=== PATIENT | male | born 1945 | race Caucasian/White ===

== ENCOUNTER 2023-01-04 00:39 | Emergency (ER) | payer MEDICARE, OTHER, SELFPAY ==
[2023-01-04 00:45] VITALS: BP 150/100; PULSE 82; RESP 16; TEMP 36.5; O2SAT 97; BMI 35.3
--- NOTE | 2023-01-04 01:00 | ED_ITS ---
HPI - General Adult General Chief complaint: Neck Pain/Injury Stated complaint: NECK INJURY Time Seen by Provider: 01/04/23 01:00 Source: patient Mode of arrival: walk-in History of Present Illness HPI narrative: slipped off lawnmower yesterday. Reached up with the right arm while falling off. Afterwards developed right sided neck pain. Did not strike his neck. Took Flexeril that he has at home. Still has pain of his neck with he extends his head back or turns his head to the right. No weakness or numbness of his extremities. Denies other injury Related Data Allergies Allergy/AdvReac Type Severity Reaction Status Date / Time No Known Drug Allergies Allergy Verified 01/04/23 00:53 Review of Systems ROS Status of ROS 10 or more systems reviewed and unremarkable except as noted in history and below [facility] Social History Smoking status: Never smoker Exam Constitutional Vital Signs - 24 hr 01/04/23 00:45 01/04/23 01:36 Temperature 97.7 F Pulse Rate [Monitor] 82 Respiratory Rate 16 Blood Pressure 140/92 H Blood Pressure [Right Arm] 150/100 H Pulse Oximetry 97 Oxygen Delivery Method Room Air Common normals: no apparent distress HENMT Common normals: normocephalic, head/scalp atraumatic and hearing grossly normal bilaterally Neck & C-Spine Other: tenderness right para cervical muscles. limited ROM turning to the right and increased pain with extension of his neck Respiratory Common normals: normal respiratory effort, no retractions, no use of accessory muscles and clear to auscultation bilaterally Cardio Common normals: no JVD, regular rate and regular rhythm GI Common normals: Normal to inspection, nondistended, normoactive bowel sounds present and soft to palpation Extremity Common normals: normal to inspection, full ROM, normal capillary refill and no joint enlargement Neuro Common normals: oriented x3, CN's II-XII intact bilaterally, moves all extremities and no focal motor deficits Psych Appearance: grossly normal Course Vital Signs Vital signs: Vital Signs Temperature 97.7 F 01/04/23 00:45 Pulse Rate 82 01/04/23 00:45 Respiratory Rate 16 01/04/23 00:45 Blood Pressure 150/100 H 01/04/23 00:45 Pulse Oximetry 97 01/04/23 00:45 Oxygen Delivery Method Room Air 01/04/23 00:45 Temperature 97.7 F 01/04/23 00:45 Pulse Rate 82 01/04/23 00:45 Respiratory Rate 16 01/04/23 00:45 Blood Pressure 140/92 H 01/04/23 01:36 Pulse Oximetry 97 01/04/23 00:45 Oxygen Delivery Method Room Air 01/04/23 00:45 Medical Decision Making MDM Narrative Medical decision making narrative: presents after fall and neck injury. Has muscular spasm right neck and limited ROM of his neck. CT-C spine without acute findings. Patient prescribed valium to use for the spasm and is to follow up with his doctor Discharge Plan Discharge Chief Complaint: Neck Pain/Injury Clinical Impression: Strain of neck muscle Instructions: Cervical Strain (ED), Acute Neck Pain (ED) Stand Alone Forms: Portal Instructions Referrals: [facility] [Other] - 1 week Follow Up Appointments: follow up with your family doctor in 2-3 days
--- NOTE | 2023-01-04 01:04 | CT_ITS ---
The [address] [address] Patient Name: INDIO GUEVARA MRN: [id number] date: 1945 Sex: M Assigned Patient Location: ER Current Patient Location: ED.MAIN Accession/Order Number: [id number] Exam Date: 01/04/2023 01:15 Report Date: 01/04/2023 01:47 At the request of: IVY HUSTON Procedure: CT cervical spine wo con EXAM: CT cervical spine wo con HISTORY: Status post fall with neck pain. COMPARISON: None. TECHNIQUE: Unenhanced helical acquisition obtained through the cervical spine with axial, coronal and sagittal MPR reconstructions. FINDINGS: Mild multilevel degenerative disc disease. Moderate to severe multilevel bilateral facet arthropathy most pronounced at C3-C4 and C4-C5. No evidence of fracture or spondylolisthesis. Mild right C3-C4 and mild left C4-C5 foraminal narrowing secondary uncovertebral hypertrophic spurring. IMPRESSION: 1. No evidence of fracture or spondylolisthesis. 2. Mild multilevel degenerative disc disease. Moderate to severe multilevel bilateral facet arthropathy. 3. Mild foraminal stenoses as described above. Electronically authenticated by: RICO BURTON Date: 01/04/2023 01:47
[2023-01-04 01:36] VITALS: BP 140/92
[2023-01-04] MEDS: DIAZEPAM 5 MG TABLET (02:43)
== END 2023-01-04 02:49 | disposition home or self-care (01) ==
PROVIDERS: Emergency Provider Internal Medicine; PCP Internal Medicine
DX: S16.1XXA Strain of muscle, fascia and tendon at neck level, initial encounter (principal); W17.89XA Other fall from one level to another, initial encounter
CPT/HCPCS: 72125; 99284

== ENCOUNTER 2023-04-18 12:24 | Outpatient (OUT) | payer MEDICARE, OTHER, SELFPAY ==
--- NOTE | 2023-04-18 13:03 | CA_ITS ---
Patient: INDIO GUEVARA Exam Date: 04/18/2023 : 1945 Gender:M Ordering : DR CASSANDRA LONG M.D. Admission #: [id number] Family : DR GIAN MARCIAL D.O. Order #: [id number] CLICK HERE TO VIEW EXAM ECHOCARDIOGRAM REPORT PROCEDURE: CA ECHO DOPPLER COMPLETE INDICATIONS: Chronic systolic congestive heart failure, hypertension, AICD COMPARISON: None. DESCRIPTION: COMPLETE ECHOCARDIOGRAM Real-time transthoracic echocardiography with 2D, M-mode, spectral and color flow Doppler performed. QUALITY: Technical quality was good. LEFT VENTRICLE: Mild dilatation. Moderate concentric left ventricular hypertrophy. LV EF: Global left ventricular systolic function is difficult to assess but appears preserved; visually estimated ejection fraction is 50 to 55%. Unable to assess regional wall motion abnormality; consider contrast study for better delineation of endocardial borders. DIASTOLIC: Grade I diastolic dysfunction. ATRIAL SEPTUM: Inadequately seen. LEFT ATRIUM: Normal chamber size. RIGHT ATRIUM: Normal chamber size. RIGHT VENTRICLE: Normal chamber size. Normal systolic function. Pacer wire present. TRICUSPID VALVE: Normal mobility and thickness. No stenosis with mild to moderate regurgitation. No evidence of pulmonary hypertension. RVSP 34 mmHg MITRAL VALVE: Normal mobility and thickness. No evidence of mitral valve stenosis. There is no mitral annular calcification. No mitral regurgitation. AORTIC VALVE: Normal trileaflet appearance. Thickened aortic valve. Normal leaflet mobility. No evidence of aortic valve stenosis. No aortic regurgitation. AORTIC ROOT: Normal diameter and appearance. PULMONIC VALVE: Not well visualized. No stenosis. No regurgitation. PERICARDIUM: Trivial pericardial effusion. IVC: Not well visualized. CONCLUSION: 1. Global left ventricular systolic function is difficult to assess but appears preserved; visually estimated ejection fraction is 50 to 55% 2. Moderate left ventricular hypertrophy 3. Grade 1, mild diastolic dysfunction 4. The right ventricle is normal in size and systolic function 5. Mild to moderate tricuspid regurgitation 6. Trivial pericardial effusion Adult Echocardiography Procedure Report Left Ventricle LVEDD (3.7 - 5.6 cm): 5.96 cm LVESD (2.2 - 4.0 cm): 4.19 cm LVIVS thickness (0.6 - 1.2 cm): 1.44 cm LVPW thickness (0.5 - 1.0 cm): 1.42 cm e': 0.06 m/s E - e': 8.10 LVOT Max Gradient: 1.98 mm[Hg] LVOT Area (cm2): 0.70 m/s Peak Velocity (LVOT): 0.70 m/s LVOT Diameter 2.59 cm Left Atrium LA Volume Index (2D A2C): 21.81 ml/m2 Left Atrium Systolic Dimension: 4.31 cm Mitral Valve MV E to A Ratio: 0.76 Mitral Valve A-Wave Peak Velocity: 0.60 m/s Mitral Valve E-Wave Peak Velocity: 0.46 m/s Right Ventricle Aorta AO Root Diam: 4.11 cm Ascending Ao Diam: 3.61 cm Aortic Valve AoV Area (Peak Tim): 3.84 cm2, 3.84 cm2 Peak Velocity(Antegrade Flow): 0.97 m/s Peak Gradient(Antegrade Flow): 3.76 mm[Hg] Tricuspid Valve Peak Velocity (Regurgitant Flow): 2.77 m/s, 2.69 m/s Pulmonic Valve Peak Velocity: 0.93 m/s Peak Gradient: 4.11 mm[Hg], 2.85 mm[Hg] Right Atrium Dictated by: Daria Jose M.D. on 04/20/2023 at 15:05 Approved by: Daria Jose M.D. on 04/20/2023 at 15:12
== END 2023-04-18 12:25 | disposition home or self-care (01) ==
LOC: CARD 12:24
PROVIDERS: Visit Provider Internal Medicine Interventional Cardiology
DX: I50.22 Chronic systolic (congestive) heart failure (principal); I07.1 Rheumatic tricuspid insufficiency
CPT/HCPCS: 93306

== ENCOUNTER 2024-08-28 10:07 | Outpatient (OUT) | payer MEDICARE, OTHER, SELFPAY ==
[2024-08-28 12:33] LABS: Anion Gap 9.4; Carbon Dioxide 30.4 mmol/L (21.0-32.0); Chloride 108 mmol/L (98-107); Potassium 4.8 mmol/L (3.5-5.1); Sodium 143 mmol/L (136-145)
== END 2024-08-28 10:08 | disposition home or self-care (01) ==
LOC: LAB 10:10
PROVIDERS: PCP Internal Medicine; Visit Provider Internal Medicine
DX: E87.5 Hyperkalemia (principal)
CPT/HCPCS: 36415; 80051

== ENCOUNTER 2024-11-06 12:11 | Outpatient (OUT) | payer MEDICARE, OTHER, SELFPAY ==
--- OUTSIDE RECORDS SUMMARY | 2024-11-06 12:22 | XMS_ITS | CCD ---
Author Organization [facility] Care Team Providers Care Scrum Master Name Role Phone PHYSICIAN, DEFAULT Unavailable Unavailable PHYSICIAN, DEFAULT Unavailable Unavailable REN MARCIAL Unavailable Unavailable UNKNOWN, PROVIDER Unavailable Unavailable UNKNOWN, PROVIDER Unavailable Unavailable REN MARCIAL Unavailable Unavailable VALONE, REN Unavailable Unavailable SAM GREER Unavailable Unavailable SAM GREER Unavailable Unavailable REN MARCIAL Unavailable Unavailable VALONERNE Unavailable Unavailable YANCY, ENRIQUE H. Admitting Unavailable YANCY, ENRIQUE H. Attending Unavailable REN MARCIAL Primary Care Unavailable YANCY, ENRIQUE H. Attending Unavailable YANCY, ENRIQUE H. Referring Unavailable REN MARCIAL Primary Care Unavailable YANCY, ENRIQUE H. Admitting Unavailable YANCY, ENRIQUE H. Attending Unavailable REN MARCIAL Primary Care Unavailable YANCY, ENRIQUE H. Attending Unavailable YANCY, ENRIQUE H. Referring Unavailable REN MARCIAL Primary Care Unavailable Valone Ren DE LA GARZA Primary Care Provider ETHAN, DR TRUJILLO Admitting Unavailable MOUKAGUERA, DR TRJUILLO Attending Unavailable VALYOON, DR SPRINGER Primary Care Unavailable CHRISTALUKAGUERA, DR TRUJILLO Consulting Unavailable MOUKAGUERA, DR TRUJILLO Admitting Unavailable MOUKARBEL, DR TRUJILLO Attending Unavailable VALONE, DR SPRINGER Primary Care Unavailable CHRISTALUKAGUERA, DR TRUJILLO Consulting Unavailable CRISSY KINGSLEY Admitting Unavailable CRISSY KINGSLEY Attending Unavailable ANIKET, DR SPRINGER Primary Care Unavailable CRISSY KINGSLEY Consulting Unavailable ETHAN, DR TRUJILLO Admitting Unavailable MOUKARBEL, DR TRUJILLO Attending Unavailable VALYOON, DR SPRINGER Primary Care Unavailable FÉLIX LOPEZ, DR RANDALL Espino Admitting Unavailkelly HEARD JR, DR RANDALL Espino Attending Unavailkelly e ANIKET, DR SPRINGER Primary Care Unavailable FÉLIX LOPEZ, DR RANDALL Espino Consulting Unavailkelly e MOUKAGUERA, DR TRUJILLO Admitting Unavailable MOUKARBEL, DR TRUJILLO Attending Unavailable VALONE, DR SPRINGER Primary Care Unavailable MOUKARBEL, DR TRUJILLO Consulting Unavailable KATHIA, Nino Garcia Attending Unavailable BAE, Nino Garcia Attending Unavailable SAVITA, KASH Referring Unavailable ELVIS, EDUARD Referring Unavailable SAVITA, KASH Referring Unavailable SAVITA, KASH Referring Unavailable SAVITA, KASH Referring Unavailable SAVITA, KASH Referring Unavailable SAVITA, KASH Referring Unavailable SAVITA, KASH Referring Unavailable SAVITA, KASH Referring Unavailable MOUKARBEL, CASSANDRA Attending Unavailable SAVITA, KASH Referring Unavailable SAVITA, KASH Referring Unavailable SAVITA, KASH Referring Unavailable ELVIS, EDUARD Referring Unavailable SAVITA, KASH Referring Unavailable ELVIS, EDUARD Referring Unavailable ELVIS, EDUARD Referring Unavailable ELVIS, EDUARD Referring Unavailable ELVIS, EDUARD Referring Unavailable SAVITA, KASH Referring Unavailable ELVIS, EDUARD Referring Unavailable ELVIS, EDUARD Referring Unavailable Allergies Allergy Classification Reported Allergen(s) Allergy Type Date of Onset Reaction(s) Facility (3 sources) tamsulosin Drug Allergy 06-30-2016 [facility] Repository (1 source) NO KNOWN DRUG ALLERGIES Drug allergy (disorder) 06-09-2009 [facility] Repository (3 sources) tamsulosin Drug Allergy 07-07-2019 [facility] (2 sources) tamsulosin; Translations: [tamsulosin] Drug Allergy 02-03-2015 [facility] Repository Medications Current Medications Medication Drug Class(es) Dates Sig (Normalized) Sig (Original) Acetaminophen / HYDROcodone (2 sources) Opioid Agonist Start: 08-07-2019 End: 08-07-2019 HYDROcodone-acetam inophen (NORCO) 5-325 MG per tablet 1 tablet Start: 07-08-2019 End: 07-08-2019 HYDROcodone-acetaminophen (N ORCO) 5-325 MG per tablet 1 tablet acetaminophen 325 mg / oxyCODONE hydrochloride 5 mg oral tablet (2 sources) Opioid Agonist Start: 08-07-2019 End: 08-14-2019 oxyCODONE-acetaminophen (PERCOCET) 5-325 MG per tablet Indications: Post-op pain Take 1 tablet by mouth every 6 hours as needed for Pain for up to 7 days. Intended supply: 7 days. Take lowest dose possible to manage pain 28 tablet 0 08/07/2019 08/14/2019 Active allopurinol 300 mg oral tablet (3 sources) Xanthine Oxidase Inhibitor Start: 08-28-2017 take 1 tablet by mouth once daily allopurinol (ZYLOPRIM) 300 MG tablet TAKE 1 TABLET BY MOUTH EVERY DAY 3 08/28/2017 Active calcium chloride 0.0014 meq/ml / potassium chloride 0.004 meq/ml / sodium chloride 0.103 meq/ml / sodium lactate 0.028 meq/ml injectable solution (4 sources) Start: 08-07-2019 lactated ringers infusion Start: 07-08-2019 lactated ringe rs infusion carvedilol 25 mg oral tablet (3 sources) alpha-Adrenergic Vidhi, beta-Adrenergic Vidhi Start: 09-05-2017 carvedilol (COREG) 25 MG tablet Takes 1/4 tab at HS 3 09/05/2017 Active cephalexin 500 mg oral capsule (2 sources) Cephalosporin Antibacterial Start: 08-07-2019 End: 08-14-2019 take 1 capsule by mouth three times daily cephALEXin (KEFLEX) 500 MG capsule Take 1 capsule by mouth 3 times daily for 7 days 21 capsule 0 08/07/2019 08/14/2019 Active 1 ml diphenhydrAMINE hydrochloride 50 mg/ml cartridge (2 sources) Histamine-1 Receptor Antagonist Start: 08-07-2019 End: 08-07-2019 diphenhydrAMINE (BENADRYL) injection 12.5 mg Start: 07-08-2019 End: 07-08-2019 diphenhydrAMINE (BENADRYL) i njection 12.5 mg DULoxetine 60 mg delayed release oral capsule (3 sources) Serotonin and Norepinephrine Reuptake Inhibitor Start: 07-09-2017 take 1 capsule by mouth at bedtime DULoxetine (CYMBALTA) 60 MG extended release capsule TAKE ONE CAPSULE BY MOUTH AT BEDTIME 3 07/09/2017 Active ezetimibe 10 mg oral tablet (3 sources) Dietary Cholesterol Absorption Inhibitor Start: 08-11-2017 ezetimibe (ZETIA) 10 MG tablet TAKE 1 TABLET AT BEDTIME 1 08/11/2017 Active famotidine 40 mg oral tablet (3 sources) Histamine-2 Receptor Antagonist take 1 tablet by mouth once daily famotidine (PEPCID) 40 MG tablet Take 40 mg by mouth Daily 0 Active 2 ml fentaNYL 0.05 mg/ml injection (2 sources) Opioid Agonist Start: 08-07-2019 fentaNYL (SUBLIMAZE) injection 50 mcg Start: 07-08-2019 fentaNYL (SUBL IMAZE) injection 50 mcg 1 ml HYDROmorphone hydrochloride 1 mg/ml cartridge (2 sources) Opioid Agonist Start: 08-07-2019 HYDROmorphone (DILAUDID) injection 0.5 mg Start: 07-08-2019 HYDROmorphone (DILAUDID) injection 0.5 mg hydroxychloroquine sulfate 200 mg oral tablet (3 sources) Antimalarial, Antirheumatic Agent take 1 tablet by mouth twice daily hydroxychloroquine (PLAQUENIL) 200 MG tablet Take 200 mg by mouth 2 times daily 0 Active 10 ml lidocaine hydrochloride 10 mg/ml injection (3 sources) Antiarrhythmic, Amide Local Anesthetic Start: 2019 End: 2019 lidocaine PF 1 % injection 1 mL Start: 07-08-2019 End: 07-08-2019 lidocaine PF 1 % injection 1 mL 1 ml meperidine hydrochloride 25 mg/ml cartridge (2 sources) Opioid Agonist Start: 08-07-2019 meperidine (DE MEROL) injection 12.5 mg Start: 07-08-2019 meperidine (DE MEROL) injection 12.5 mg 2 ml metoclopramide 5 mg/ml prefilled syringe (2 sources) Dopamine-2 Receptor Antagonist Start: 08-07-2019 End: 08-07-2019 metoclopramide (REGLAN) injection 10 mg Start: 07-08-2019 End: 07-08-2019 metoclopramide (REGLAN) inje ction 10 mg montelukast 10 mg oral tablet (3 sources) Leukotriene Receptor Antagonist take 1 tablet by mouth once daily montelukast (SINGULAIR) 10 MG tablet Take 10 mg by mouth daily 0 Active 2 ml ondansetron 2 mg/ml injection (2 sources) Serotonin-3 Receptor Antagonist Start: 0 End: 0 ondansetron (ZOFRAN) injection 4 mg Start: 07-08-2019 End: 07-08-2019 ondansetron (ZOFRAN) injecti on 4 mg pregabalin 200 mg oral capsule (3 sources) take 1 capsule by mouth twice daily pregabalin (LYRICA) 200 MG capsule Take 200 mg by mouth 2 times daily. 0 Active sacubitril 97 mg / valsartan 103 mg oral tablet (3 sources) Angiotensin 2 Receptor Vidhi sacubitril-valsarta n (ENTRESTO) 97-103 MG per tablet Entresto 97 mg-103 mg tablet 0 Active 3 ml sodium chloride 9 mg/ml injection (6 sources) Start: 0 sodium chloride flush 0.9 % injection 10 mL Start: 07-08-2019 sodium chlorid e flush 0.9 % injection 10 mL traMADol hydrochloride 50 mg oral tablet (1 source) Opioid Agonist Start: 06-20-2019 End: 07-20-2019 take 1 tablet by mouth once daily traMADol (ULTRAM) 50 MG tablet Indications: Spinal stenosis, lumbar region with neurogenic claudication , Lumbar radiculopathy , Lumbar spondylosis Take 1 tablet by mouth daily for 30 days. 30 tablet 0 06/20/2019 07/20/2019 Active Completed/Discontinued Medications Medication Drug Class(es) Dates Sig (Normalized) Sig (Original) diclofenac sodium 50 mg delayed release oral tablet (1 source) Nonsteroidal Anti-inflammatory Drug Start: 07-09-2018 End: 07-07-2019 take 1 tablet by mouth three times daily at mealtime diclofenac (VOLTAREN) 50 MG EC tablet Indications: Lumbar radiculopathy , Lumbar spondylosis TAKE 1 TABLET BY MOUTH 3 TIMES A DAY WITH MEALS 60 tablet 3 07/09/2018 07/07/2019 Discontinued (LIST CLEANUP) OXcarbazepine 150 mg oral tablet (1 source) Anti-epileptic Agent End: 07-07-2019 take 1 tablet by mouth twice daily OXcarbazepine (TRILEPTAL) 150 MG tablet Take 150 mg by mouth 2 times daily 0 07/07/2019 Discontinued (LIST CLEANUP) Problems Active Problems Problem Classification Problem Date Documented Da te Episodic/Chronic Conduction disorders (7 sources) Left bundle-branch block, unspecified; Translations: [Encounter for adjustment and management of automatic implantable cardiac defibrillator] Onset: 02-05-2018 Chronic Congestive heart failure; nonhypertensive (15 sources) Left ventricular failure, unspecified; Translations: [Unspecified systolic (congestive) heart failure] Onset: 01-11-2018 Chronic Hyperplasia of prostate (4 sources) Benign prostatic hyperplasia with lower urinary tract symptoms; Translations: [BENIGN PROSTATIC HYPERPLASIA W/LUTS] Onset: 09-30-2021 Chronic Osteoarthritis (1 source) Unspecified osteoarthritis, unspecified site; Translations: [UNSPECIFIED OSTEOARTHRITIS, UNSPECIFIED SITE] Onset: 02-05-2018 Chronic Other aftercare (1 source) retirement (current) use of aspirin; Translations: [MANUSCRIPT READER (CURRENT) USE OF ASPIRIN] Onset: 02-05-2018 Episodic Micheline-; endo-; and myocarditis; cardiomyopathy (6 sources) Cardiomyopathy, unspecified; Translations: [Dilated cardiomyopathy] Onset: 02-05-2018 Chronic Spondylosis; intervertebral disc disorders; other back problems (1 source) Dorsalgia, unspecified; Translations: [DORSALGIA, UNSPECIFIED] Onset: 02-05-2018 Episodic Unclassified (2 sources) Unknown / UNK(Unknown) Onset: 01-11-2018 Past or Other Problems Problem Classification Problem Date Documented Da te Episodic/Chronic Other nervous system disorders (1 source) Postoperative pain Episodic Residual codes; unclassified (1 source) Pain Episodic Results Test Name Value Interpretation Reference Range Facility Office Visiton 12-26-2023 Follow-up visit [id number] Jose Guevara 1945 M Date Provider Department Center 12/26/2023 CASSANDRA AGUERO [facility] Family History Problem Relation Age of Onset Stroke Father Family Status - Relation Status Age at Father Level of Service:97739 [place] OFFICE/OUTPATIENT ESTABLISHED LOW MDM 20 MIN Normal [facility] PROF CHEM 8 (BAS METB)on Anion gap [Moles/Vol] 9.4 mmol/L Normal [facility] Comment on above: Performed By: #### B MP #### [facility] [address] [place] [address] Dr. Javy Brian Calcium [Mass/Vol] 9.7 mg/dL Normal 8.5-10.1 [facility] Comment on above: Performed By: #### B MP #### [facility] [address] [address] [address] Javy Brian Chloride [Moles/Vol] 106 mmol/L Normal 98-107 [facility] Comment on above: Performed By: #### B MP #### [facility] [address] [place] [address] Dr. Javy Brian CO2 [Moles/Vol] 30.4 mmol/L Normal 21.0-32.0 [facility] Comment on above: Performed By: #### B MP #### [facility] [address] [address] [address] Javy Brian Creatinine [Mass/Vol] 1.46 mg/dL Critically high 0.70-1.30 [facility] Comment on above: Performed By: #### B MP #### [facility] [address] [address] [address] Javy Brian EGFR-AF VENEZUELAN 57 mL/min/1.73m2 Critically low >=60 [facility] Comment on above: Performed By: #### B MP #### [facility] [address] [address] [address] Javy Brian EGFR-NON AF VENEZUELAN 47 mL/min/1.73m2 Critically low >=60 [facility] Comment on above: Performed By: #### B MP #### [facility] [address] [address] [address] Javy Brian Glucose [Mass/Vol] 99 mg/dL Normal 74-106 [facility] Comment on above: Performed By: #### B MP #### [facility] [address] [address] [address] Javy Brian Potassium [Moles/Vol] 4.8 mmol/L Normal 3.5-5.1 [facility] Comment on above: Performed By: #### B MP #### [facility] [address] [address] [address] Javy Brian Sodium [Moles/Vol] 141 mmol/L Normal 136-145 [facility] Comment on above: Performed By: #### B MP #### [facility] [address] [address] [address] Javy Brian Urea nitrogen [Mass/Vol] 23.0 mg/dL Critically high 7.0-18.0 [facility] Comment on above: Performed By: #### B MP #### [facility] [address] [address] [address] Javy Brian Urea nitrogen/Creatinin e [Mass ratio] 15.8 mg/mg Normal [facility] Comment on above: Performed By: #### B MP #### [facility] [address] [place] [address] Dr. Javy Brian PROF CHEM 8 (BAS METB)on Anion gap [Moles/Vol] 10.7 mmol/L Normal [facility] Comment on above: Performed By: #### B MP #### [facility] [address] [place] [address] Dr. Javy Brian Calcium [Mass/Vol] 9.7 mg/dL Normal 8.5-10.1 [facility] Comment on above: Performed By: #### B MP #### [facility] [address] [place] [address] Dr. Javy Brian Chloride [Moles/Vol] 106 mmol/L Normal 98-107 [facility] Comment on above: Performed By: #### B MP #### [facility] [address] [place] [address] Dr. Javy Brian CO2 [Moles/Vol] 29.5 mmol/L Normal 21.0-32.0 [facility] Comment on above: Performed By: #### B MP #### [facility] [address] [place] [address] Dr. Javy Brian Creatinine [Mass/Vol] 1.79 mg/dL Critically high 0.70-1.30 [facility] Comment on above: Performed By: #### B MP #### [facility] [address] [place] [address] Dr. Javy Brian EGFR-AF VENEZUELAN 45 mL/min/1.73m2 Critically low >=60 [facility] Comment on above: Performed By: #### B MP #### [facility] [address] [place] [address] Dr. Javy Brian EGFR-NON AF VENEZUELAN 37 mL/min/1.73m2 Critically low >=60 [facility] Comment on above: Performed By: #### B MP #### [facility] [address] [place] [address] Dr. Javy Brian Glucose [Mass/Vol] 94 mg/dL Normal 74-106 [facility] Comment on above: Performed By: #### B MP #### [facility] [address] [address] [address] Javy Brian Potassium [Moles/Vol] 5.2 mmol/L Critically high 3.5-5.1 [facility] Comment on above: Performed By: #### B MP #### [facility] [address] [address] [address] Javy Brian Sodium [Moles/Vol] 141 mmol/L Normal 136-145 [facility] Comment on above: Performed By: #### B MP #### [facility] [address] [place] [address] Dr. Javy Brian Urea nitrogen [Mass/Vol] 34.0 mg/dL Critically high 7.0-18.0 [facility] Comment on above: Performed By: #### B MP #### [facility] [address] [place] [address] Dr. Javy Brian Urea nitrogen/Creatinin e [Mass ratio] 19.0 mg/mg Normal [facility] Comment on above: Performed By: #### B MP #### [facility] [address] [place] [address] Dr. Javy Brian PROF CHEM 8 (BAS METB)on Anion gap [Moles/Vol] 12.0 mmol/L Normal [facility] Comment on above: Performed By: #### B MP #### [facility] [address] [place] [address] Dr. Javy Brian Calcium [Mass/Vol] 8.9 mg/dL Normal 8.5-10.1 [facility] Comment on above: Performed By: #### B MP #### [facility] [address] [place] [address] Dr. Javy Brian Chloride [Moles/Vol] 109 mmol/L Critically high 98-107 [facility] Comment on above: Performed By: #### B MP #### [facility] [address] [place] [address] Dr. Javy Brian CO2 [Moles/Vol] 29.0 mmol/L Normal 22.0-30.0 [facility] Comment on above: Performed By: #### B MP #### [facility] [address] [address] [address] Javy Brian Creatinine [Mass/Vol] 1.79 mg/dL Critically high 0.66-1.25 [facility] Comment on above: Performed By: #### B MP #### [facility] [address] [address] [address] Javy Brian EGFR-AF VENEZUELAN 45 mL/min/1.73m2 Critically low >=60 [facility] Comment on above: Performed By: #### B MP #### [facility] [address] [address] [address] Javy Brian EGFR-NON AF VENEZUELAN 37 mL/min/1.73m2 Critically low >=60 [facility] Comment on above: Performed By: #### B MP #### [facility] [address] [address] [address] Javy Brian Glucose [Mass/Vol] 92 mg/dL Normal 74-106 [facility] Comment on above: Performed By: #### B MP #### [facility] [address] [address] [address] Javy Brian Potassium [Moles/Vol] 5.0 mmol/L Normal 3.4-5.0 [facility] Comment on above: Performed By: #### B MP #### [facility] [address] [address] [address] Javy Brian Sodium [Moles/Vol] 145 mmol/L Normal 137-145 [facility] Comment on above: Performed By: #### B MP #### [facility] [address] [address] [address] Javy Brian Urea nitrogen [Mass/Vol] 35.0 mg/dL Critically high 7.0-18.0 [facility] Comment on above: Performed By: #### B MP #### [facility] [address] [address] [address] Javy Brian Urea nitrogen/Creatinin e [Mass ratio] 19.6 mg/mg Normal [facility] Comment on above: Performed By: #### B MP #### [facility] [address] [place] [address] Dr. Javy Brian CBC AUTO DIFFon 11-04-2021 BASO # 0.0 103/ul Normal 0.0-0.1 [facility] Comment on above: Performed By: #### C BC #### [facility] [address] [place] [address] Dr. Javy Brian Basophils/100 WBC (Bld) 0.7 % Normal 0.2-2.0 [facility] Comment on above: Performed By: #### C BC #### [facility] [address] [place] [address] Dr. Javy Brian EO # 0.2 103/ul Normal 0.0-0.7 [facility] Comment on above: Performed By: #### C BC #### [facility] [address] [place] [address] Dr. Javy Brian Eosinophils/100 WBC (Bld) 3.1 % Normal 0.9-7.0 [facility] Comment on above: Performed By: #### C BC #### [facility] [address] [place] [address] Dr. Javy Brian Erythrocyte distribution width (RBC) [Ratio] 14.3 % Normal 11.0-15.0 [facility] Comment on above: Performed By: #### C BC #### [facility] [address] [place] [address] Dr. Javy Brian Hematocrit (Bld) [Volume fraction] 43.5 % Normal 42.0-54.0 [facility] Comment on above: Performed By: #### C BC #### [facility] [address] [place] [address] Dr. Javy Brian Hemoglobin (Bld) [Mass/Vol] 13.7 g/dL Critically low 14.0-18.0 [facility] Comment on above: Performed By: #### C BC #### [facility] [address] [place] [address] Dr. Javy Brian IG # 0.01 10e3/ul Normal 0.00-0.03 [facility] Comment on above: Performed By: #### C BC #### [facility] [address] [place] [address] Dr. Javy Brian IG % 0.2 % Normal 0.0-0.5 [facility] Comment on above: Performed By: #### C BC #### [facility] [address] [place] [address] Dr. Javy Brian LYMPH # 1.4 103/ul Normal 1.2-3.8 [facility] Comment on above: Performed By: #### C BC #### [facility] [address] [place] [address] Dr. Javy Brian Lymphocytes/100 WBC (Bld) 23.6 % Normal 20.5-60.0 [facility] Comment on above: Performed By: #### C BC #### [facility] [address] [place] [address] Dr. Javy Brian MANUAL DIFF REQ NO Normal [facility] Comment on above: Performed By: #### C BC #### [facility] [address] [place] [address] Dr. Javy Brian MCH (RBC) [Entitic mass] 29.0 pg Normal 25.9-34.0 [facility] Comment on above: Performed By: #### C BC #### [facility] [address] [place] [address] Dr. Javy Brian MCHC (RBC) [Mass/Vol] 31.5 g/dL Normal 29.9-35.2 [facility] Comment on above: Performed By: #### C BC #### [facility] [address] [place] [address] Dr. Javy Brian MCV (RBC) [Entitic vol] 92.0 fL Normal 80.0-94.0 [facility] Comment on above: Performed By: #### C BC #### [facility] [address] [place] [address] Dr. Javy Brian MONO # 0.8 103/ul Normal 0.3-0.8 [facility] Comment on above: Performed By: #### C BC #### [facility] [address] [place] [address] Dr. Javy Brian Monocytes/100 WBC (Bld) 14.1 % Critically high 1.7-12.0 [facility] Comment on above: Performed By: #### C BC #### [facility] [address] [place] [address] Dr. Javy Brian NEUT # 3.4 103/ul Normal 1.4-6.5 [facility] Comment on above: Performed By: #### C BC #### [facility] [address] [place] [address] Dr. Javy Brian Neutrophils/100 WBC (Bld) 58.3 % Normal 43.0-75.0 [facility] Comment on above: Performed By: #### C BC #### [facility] [address] [place] [address] Dr. Javy Brian Platelet mean volume (Bld) [Entitic vol] 9.7 fL Normal 9.5-13.5 [facility] Comment on above: Performed By: #### C BC #### [facility] [address] [place] [address] Dr. Javy Brian PLT 113 103/ul Critically low 150-450 [facility] Comment on above: Performed By: #### C BC #### [facility] [address] [place] [address] Dr. Javy Brian RBC 4.73 106/ul Normal 4.70-6.10 [facility] Comment on above: Performed By: #### C BC #### [facility] [address] [place] [address] Dr. Javy Brian WBC 5.8 103/ul Normal 4.0-11.0 [facility] Comment on above: Performed By: #### C BC #### [facility] [address] [place] [address] Dr. Javy Brian PROF CHEM 8 (BAS METB)on Anion gap [Moles/Vol] 13.2 mmol/L Normal [facility] Comment on above: Performed By: #### B MP #### [facility] [address] [address] [address] Javy Brian Calcium [Mass/Vol] 9.1 mg/dL Normal 8.5-10.1 [facility] Comment on above: Performed By: #### B MP #### [facility] [facility] [address] [address] [address] Javy Brian Chloride [Moles/Vol] 110 mmol/L Critically high 98-107 [facility] Comment on above: Performed By: #### B MP #### [facility] [address] [address] [address] Javy Brian CO2 [Moles/Vol] 27.6 mmol/L Normal 22.0-30.0 [facility] Comment on above: Performed By: #### B MP #### [facility] [address] [address] [address] Javy Brian Creatinine [Mass/Vol] 1.61 mg/dL Critically high 0.66-1.25 [facility] Comment on above: Performed By: #### B MP #### [facility] [address] [address] [address] Javy Brian EGFR-AF VENEZUELAN 51 mL/min/1.73m2 Critically low >=60 [facility] Comment on above: Performed By: #### B MP #### [facility] [address] [address] [address] Javy Brian EGFR-NON AF VENEZUELAN 42 mL/min/1.73m2 Critically low >=60 [facility] Comment on above: Performed By: #### B MP #### [facility] [address] [address] [address] Javy Brian Glucose [Mass/Vol] 94 mg/dL Normal 74-106 [facility] Comment on above: Performed By: #### B MP #### [facility] [address] [address] [address] Javy Brian Potassium [Moles/Vol] 5.8 mmol/L Critically high 3.4-5.0 [facility] Comment on above: Performed By: #### B MP #### [facility] [address] [address] [address] Javy Brian Sodium [Moles/Vol] 145 mmol/L Normal 137-145 [facility] Comment on above: Performed By: #### B MP #### [facility] [address] [address] [address] Javy Brian Urea nitrogen [Mass/Vol] 27.0 mg/dL Critically high 7.0-18.0 [facility] Comment on above: Performed By: #### B MP #### [facility] [address] [address] [address] Javy Brian Urea nitrogen/Creatinin e [Mass ratio] 16.8 mg/mg Normal [facility] Comment on above: Performed By: #### B MP #### [facility] [address] [address] [address] Javy Brian Ambulatory Visit Summaryon 0 10-04-2021 Ambulatory Visit Summary INDIO GUEVARA :1945 Visit Date:10/04/2021 Ambulatory Visit Instructions Your Diagnosis BPH with urinary obstruction Personal history of kidney stones Tests Performed Urnls Dip Stick Auto w/o Microscopy POC 07199 Your Care Team Attending Physician - Randall Heard Jr., MD Primary Care Physician - REN MARCIAL JR, DO This Is Your Medications List Contact prescribing physician if questions or concerns acetaminophen-hydrocodone ([place] 325 mg-5 mg oral tablet) allopurinol (allopurinol 300 mg Tab) carvedilol (carvedilol 25 mg Tab) duloxetine (Cymbalta) empagliflozin (Jardiance 10 mg oral tablet) ezetimibe (Zetia 10 mg Tab) hydroxychloroquine (hydroxychloroquine 200 mg Tab) montelukast (montelukast 10 mg Tab) pravastatin (pravastatin 40 mg Tab) pregabalin (Lyrica 200 mg Cap) rosuvastatin (rosuvastatin 5 mg Tab) sacubitril-valsartan (Entresto 97 mg-103 mg oral tablet) tramadol Procedures Performed Scrotal exploration (01/09/2018), Cystoscopic removal of ureteric stent (05/24/2017), Cystoscopy (04/04/2017), ESWL of kidney (03/12/2017), ESWL of kidney (01/08/2017), Left Thumb cyst excision (12/30/2015), Cystoscopy (04/29/2015), ESWL of kidney (04/12/2015), ESWL of kidney (03/08/2015), ESWL of kidney (02/08/2015), Hernia, History of back surgery....... Discharge Vitals Heart Rate (Peripheral) 67 Respiratory Rate 16 Blood Pressure 145/85 Height 182 cm Height 182.0 cm Weight 121 kg Weight 121.0 kg BMI 36.53 What to do next Scheduled Follow-Up Appointments Sunday 10:30 AM EDT With: Félix Carter MD, Randall Espino Where: [facility] Patient Educationon 10-05-19 Patient Education Urology Benign Prostatic Hyperplasia Benign prostatic hyperplasia (BPH) is an enlarged prostate gland that is caused by the normal aging process and not by cancer. The prostate is a walnut-sized gland that is involved in the production of semen. It is located in front of the rectum and below the bladder. The bladder stores urine and the urethra is the tube that carries the urine out of the body. The prostate may get bigger as a man gets older. An enlarged prostate can press on the urethra. This can make it harder to pass urine. The build-up of urine in the bladder can cause infection. Back pressure and infection may progress to bladder damage and kidney (renal) failure. What are the causes? This condition is part of a normal aging process. However, not all men develop problems from this condition. If the prostate enlarges away from the urethra, urine flow will not be blocked. If it enlarges toward the urethra and compresses it, there will be problems passing urine. What increases the risk? This condition is more likely to develop in men over the age of 50 years. What are the signs or symptoms? Symptoms of this condition include: ? Getting up often during the night to urinate. ? Needing to urinate frequently during the day. ? Difficulty starting urine flow. ? Decrease in size and strength of your urine stream. ? Leaking (dribbling) after urinating. ? Inability to pass urine. This needs immediate treatment. ? Inability to completely empty your bladder. ? Pain when you pass urine. This is more common if there is also an infection. ? Urinary tract infection (UTI). How is this diagnosed? This condition is diagnosed based on your medical history, a physical exam, and your symptoms. Tests will also be done, such as: ? A post-void bladder scan. This measures any amount of urine that may remain in your bladder after you finish urinating. ? A digital rectal exam. In a rectal exam, your health care provider checks your prostate by putting a lubricated, gloved finger into your rectum to feel the back of your prostate gland. This exam detects the size of your gland and any abnormal lumps or growths. ? An exam of your urine (urinalysis). ? A prostate specific antigen (PSA) screening. This is a blood test used to screen for prostate cancer. ? An ultrasound. This test uses sound waves to electronically produce a picture of your prostate gland. Your health care provider may refer you to a specialist in kidney and prostate diseases (urologist). How is this treated? Once symptoms begin, your health care provider will monitor your condition (active surveillance or watchful waiting). Treatment for this condition will depend on the severity of your condition. Treatment may include: ? Observation and yearly exams. This may be the only treatment needed if your condition and symptoms are mild. ? Medicines to relieve your symptoms, including: ? Medicines to shrink the prostate. ? Medicines to relax the muscle of the prostate. ? Surgery in severe cases. Surgery may include: ? Prostatectomy. In this procedure, the prostate tissue is removed completely through an open incision or with a laparoscope or robotics. ? Transurethral resection of the prostate (TURP). In this procedure, a tool is inserted through the opening at the tip of the penis (urethra). It is used to cut away tissue of the inner core of the prostate. The pieces are removed through the same opening of the penis. This removes the blockage. ? Transurethral incision (TUIP). In this procedure, small cuts are made in the prostate. This lessens the prostate's pressure on the urethra. ? Transurethral microwave thermotherapy (TUMT). This procedure uses microwaves to create heat. The heat destroys and removes a small amount of prostate tissue. ? Transurethral needle ablation (TUNA). This procedure uses radio frequencies to destroy and remove a small amount of prostate tissue. ? Interstitial laser coagulation (ILC). This procedure uses a laser to destroy and remove a small amount of prostate tissue. ? Transurethral electrovaporization (TUVP). This procedure uses electrodes to destroy and remove a small amount of prostate tissue. ? Prostatic urethral lift. This procedure inserts an implant to push the lobes of the prostate away from the urethra. Follow these instructions at home: ? Take tzma-gup-qletmmt and prescription medicines only as told by your health care provider. ? Monitor your symptoms for any changes. Contact your health care provider with any changes. ? Avoid drinking large amounts of liquid before going to bed or out in public. ? Avoid or reduce how much caffeine or alcohol you drink. ? Give yourself time when you urinate. ? Keep all follow-up visits as told by your health care provider. This is important. Contact a health care provider if: ? You have unexplained back pain. ? Your symptoms do not get better with treatment. ? You d (more content not included)... Normal [facility] Urology Office/Clinic Noteon 10-04-2021 Urology Office/Clinic Note Chief Complaint Follow up to PSA and KUB This patient is a 76-year-old male with a history of renal calculi and prostatic hyperplasia. He is here today for follow-up visit. He has a recent PSA for review. [facility] Staff [place] is a 2 month follow up with PSA and KUB.Current PSA done 09/30/21 was 0.56.KUB was not done. No previous KUB or PSA. Previous DX: BPH with urinary obstruction, Epididymal cyst, Epididymitis, former smoker, nocturia, pain in Lt testicle, personal HX of kidney stones, weak urine stream. S/P Scrotal exploration done 01/09/18 Dysuria: _Denies Incomplete bladder emptying: _Denies Hematuria: _Denies Frequency: _Pt states he goes about 6 times a day. Urgency: _Yes Nocturia: _3 times a night Stream: _strong steady stream Leaking: _Denies Post void dripping: _Denies Wearing pads/ Depends: _Denies Urge incontinence: _Denies Stress incontinence: _Denies Incontinence without Sensory Awareness: _Denies Abdominal pain: _Denies Flank pain: _Denies Sexual complaints: _ History of Present Illness Tests Reviewed: Reviewed UA. I have reviewed and verified the staff HPI to be accurate for this encounter. I have reviewed the previous health record information and history for this patient from Dr. Heard There have been no associated fever, chills, flank pain, or blood in the urine. Denies any urinary infections since last encounter. Review of Systems PHQ Score Initial Depression Screen Score: 0 ROS - Provider Constitutional: denies weight loss, denies hot flashes. Eyes: denies eye problems. Gastrointestinal: denies nausea, denies vomiting. Cardiovascular: denies chest pain or angina. Integumentary: no dryness Musculoskeletal: denies musculoskeletal symptoms. ENMT: denies otolaryngeal symptoms. Respiratory: no shortness of breath. Heme/Lymph: denies easy bleeding tendency, denies easy bruising tendency. Psychiatric: no confusion, no anxiety. Genitourinary: denies dysuria, denies hematuria, denies discharge, denies urinary frequency, denies urinary hesitancy, denies nocturia, denies incontinence, denies genital sores, denies decreased libido, and denies erectile dysfunction. Physical Exam Vitals & Measurements HR: 67(Peripheral) RR: 16 BP: 145/85 HT: 182 cm HT: 182.0 cm WT: 121 kg WT: 121.0 kg BMI: 36.53 General Appearance: alert, no distress, well nourished, well developed male. Genitourinary: normal scrotum, normal testes, normal urethra, normal epididymis, normal vas deferens/spermatic cord. Assessment/Plan At present patient is voiding without any difficulty. He continues to state that he can void with good control and minimal nocturia. PSA blood test result is 0.56 ng/mL. We will plan to follow-up with him in 1 year with another PSA blood test. Is been instructed to contact office if he develops signs or symptoms of another kidney stone. He did not get a KUB prior to this visit. 1. BPH with urinary obstruction (N40.1: Benign prostatic hyperplasia with lower urinary tract symptoms) UA today is clear patient not currently on any BPH medications at this time, he's voiding well, gets up 2x per night. Current PSA done 09/30/21 was 0.56 previous recent PSA done 01-13-19 0.80, mild intermittent nocturia 3 times a night, mild frequency Pt states he goes about 6 times a day. All questions and concerns were discussed. Pt acknowledge and understand. Pt will call our office with any changes in urinary symptoms Ordered: PSA Total Urnls Dip Stick Auto w/o Microscopy POC 93199 2. Personal history of kidney stones (Z87.442: Personal history of urinary calculi) s/p ESWL in 2017, no KUB done for today S/P Scrotal exploration done 01/09/18 Ordered: PSA Total Follow-up With When Contact Information Félix Carter MD, Randall Espino, URO Within 1 year Additional Instructions: w/psa Patient Education Benign Prostatic Hyperplasia Shakira James personally scribed for Dr. Heard on 10/04/2021 11:49:15. . Documentation recorded by the scribe, Shakira Emery, accurately reflects the services(s) I performed and decisions made by me. Authenticated by Dr. Heard on 10/04/2021 11:52:29. Problem List/Past Medical History Ongoing BPH with urinary obstruction Deep venous thrombosis Epididymal cyst Epididymitis Former smoker Nocturia Pain in left testicle Personal history of kidney stones Weak urine stream Historical Hx of urinary stone Procedure/Surgical History Scrotal exploration (01/09/2018), Cystoscopic removal of ureteric stent (05/24/2017), Cystoscopy (04/04/2017), ESWL of kidney (03/12/2017), ESWL of kidney (01/08/2017), Left Thumb cyst excision (12/30/2015), Cystoscopy (04/29/2015), ESWL of kidney (04/12/2015), ESWL of kidney (03/08/2015), ESWL of kidney (02/08/2015), Hernia, History of back surgery....... Medications allopurinol 300 mg Tab, 300 mg= 1 tab(s), Oral, Daily carvedilol 25 mg Tab, 12.5 (more content not included)... Normal [facility] Comment on above: Result Comment: Elec tronically Signed By: Randall Heard Jr., MD\.br\Date and Time Signed: 10/04/21 11:52 EST\.br\Electronically Co-Signed By: Shakira Emery MA\.br\Date and Time Co-Signed: 10/04/21 11:49 EST Lab Reportson 10-03-2021 Lab Reports [id number] Normal [facility] Fluoro For Surgical Procedur esOrdered By: Enrique Mayers on 08-08-2019 Impression: Fluorosc opic time 383.0 seconds. Spinal stimulating leads with leads at indeterminate spinal level. If there is clinical concern for desired level location, radiographs lumbar/thoracic spine recommended. [employer] Phone: Patient 1 : 1945 Age: 74 years Gender: Male Order Date: 08/07/2019 2:09 PM. Exam: FLUORO FOR SURGICAL PROCEDURES Number of Views: 2 Indication: Pain Comparison: None Findings: Spinal stimulating leads are noted with leads at indeterminate spinal level. Postoperative changes lower lumbar spine. [employer] Phone: [place], [place] Incoming R adiant Results From [facility] - 08/08/2019 8:50 AM EST Patient : 1945 Age: 74 years Gender: Male Order Date: 08/07/2019 2:09 PM. Exam: FLUORO FOR SURGICAL PROCEDURES Number of Views: 2 Indication: Pain Comparison: None Findings: Spinal stimulating leads are noted with leads at indeterminate spinal level. Postoperative changes lower lumbar spine. IMPRESSION: Impression: Fluoroscopic time 383.0 seconds. Spinal stimulating leads with leads at indeterminate spinal level. If there is clinical concern for desired level location, radiographs lumbar/thoracic spine recommended. [employer] Phone: FLUORO FOR SURGICAL PROCEDUR ESon 08-07-2019 FLUORO FOR SURGICAL PROCEDURES Patient : 1945 Age: 74 years Gender: Male Order Date: 08/07/2019 2:09 PM. Exam: FLUORO FOR SURGICAL PROCEDURES Number of Views: 2 Indication: Pain Comparison: None Findings: Spinal stimulating leads are noted with leads at indeterminate spinal level. Postoperative changes lower lumbar spine. IMPRESSION: Impression: Fluoroscopic time 383.0 seconds. Spinal stimulating leads with leads at indeterminate spinal level. If there is clinical concern for desired level location, radiographs lumbar/thoracic spine recommended. Interpreted by: Simon Somers MD Signed by: Simon Somers MD 08/08/19 Final result Normal [facility] APTTOrdered By: Tone duron on 07-08-2019 aPTT Coag (Bld) [Time] 33.3 s [employer] Phone: Comment on above: Effective 02/13/2019: Please note methodology and/or reference ranges have changed. aPTT - Heparin Therapeutic Range: 74.0 - 106 seconds BASIC METABOLIC PANELOrdered By: Tone Redd on 07-08-2019 Anion gap [Moles/Vol] 13 mmol/L [employer] Phone: Calcium [Mass/Vol] 9.6 mg/dL 8.5 - 9.9 mg/dL [employer] Phone: Chloride [Moles/Vol] 107 mmol/L [employer] Phone: CO2 [Moles/Vol] 22 mmol/L [employer] Phone: Creatinine [Mass/Vol] 1.02 mg/dL 0.7 - 1.2 mg/dL [employer] Phone: GFR >60.0 >60 [employer] Phone: Comment on above: >60 mL/min/1.73m2 EG FR, calc. for ages 18 and older using the MDRD formula (not corrected for weight), is valid for stable renal function. GFR Non- >60.0 >60 [employer] Phone: Comment on above: >60 mL/min/1.73m2 EG FR, calc. for ages 18 and older using the MDRD formula (not corrected for weight), is valid for stable renal function. Glucose [Mass/Vol] 98 mg/dL 70 - 99 mg/dL [facility]: Potassium [Moles/Vol] 4.5 mmol/L [facility]: Sodium [Moles/Vol] 142 mmol/L [facility]: Urea nitrogen [Mass/Vol] 21 mg/dL 8 - 23 mg/dL [facility]: Basic Metabolic Panelon 12-1 Anion gap [Moles/Vol] 13 mmol/L Normal 9-15 [facility] Comment on above: Performed By: #### B MP #### [facility] [address] [place] [address] Calcium [Mass/Vol] 9.6 mg/dL Normal 8.5-9.9 [facility] Comment on above: Performed By: #### B MP #### [facility] [address] [place] [address] Chloride [Moles/Vol] 107 mmol/L Normal 95-107 [facility] Comment on above: Performed By: #### B MP #### [facility] [address] [place] [address] CO2 [Moles/Vol] 22 mmol/L Normal 20-31 [facility] Comment on above: Performed By: #### B MP #### [facility] [address] [place] [address] Creatinine [Mass/Vol] 1.02 mg/dL Normal 0.70-1.20 [facility] Comment on above: Performed By: #### B MP #### [facility] [address] [place] [address] GFR/1.73 sq M predicted among blacks MDRD (S/P/Bld) [Vol rate/Area] mL/min/{1.73_m2} Normal >60 [facility] Comment on above: Result Comment: >60 mL/min/1.73m2 EGFR, calc. for ages 18 and older using the MDRD formula (not corrected for weight), is valid for stable renal function. Performed By: #### B MP #### [facility] [address] [place] [address] GFR/1.73 sq M.predicted MDRD (S/P/Bld) [Vol rate/Area] mL/min/{1.73_m2} Normal >60 [facility] Comment on above: Result Comment: >60 mL/min/1.73m2 EGFR, calc. for ages 18 and older using the MDRD formula (not corrected for weight), is valid for stable renal function. Performed By: #### B MP #### [facility] [address] [place] [address] Glucose [Mass/Vol] 98 mg/dL Normal 70-99 [facility] Comment on above: Performed By: #### B MP #### [facility] [address] [place] [address] Potassium [Moles/Vol] 4.5 mmol/L Normal 3.4-4.9 [facility] Comment on above: Performed By: #### B MP #### [facility] [address] [place] [address] Sodium [Moles/Vol] 142 mmol/L Normal 135-144 [facility] Comment on above: Performed By: #### B MP #### [facility] [address] [place] [address] Urea nitrogen [Mass/Vol] 21 mg/dL Normal 8-23 [facility] Comment on above: Performed By: #### B MP #### [facility] [address] [place] [address] CBCOrdered By: Tone bo on 07-08-2019 Erythrocyte distribution width (RBC) [Ratio] 14.0 % 11.5 - 14.5 % [facility] Phone: Hematocrit (Bld) [Volume fraction] 42.1 % 42 - 52 % [facility] [employer] Phone: Hemoglobin (Bld) [Mass/Vol] 14.1 g/dL 14 - 18 g/dL [employer] Phone: MCH (RBC) [Entitic mass] 29.9 pg 27 - 31.3 pg [employer] Phone: MCHC 33.6 % 33 - 37 % [employer] Phone: MCV (RBC) [Entitic vol] 89.0 fL 80 - 100 fL [employer] Phone: Platelets (Bld) [#/Vol] 140 10*3/uL 130 - 400 K/uL [employer] Phone: RBC (Bld) [#/Vol] 4.73 10*6/uL [employer] Phone: WBC (Bld) [#/Vol] 5.7 10*3/uL 4.8 - 10.8 K/uL [employer] Phone: CBC With Platelet No Differe ntialon 07-08-2019 Erythrocyte distribution width (RBC) [Ratio] 14.0 % Normal 11.5-14.5 [facility] Comment on above: Performed By: #### C BCND #### [facility] [address] [place] [address] Hematocrit (Bld) [Volume fraction] 42.1 % Normal 42.0-52.0 [facility] Comment on above: Performed By: #### C BCND #### [facility] [address] [place] [address] Hemoglobin (Bld) [Mass/Vol] 14.1 g/dL Normal 14.0-18.0 [facility] Comment on above: Performed By: #### C BCND #### [facility] [address] [place] [address] MCH (RBC) [Entitic mass] 29.9 pg Normal 27.0-31.3 [facility] Comment on above: Performed By: #### C BCND #### [facility] [address] [place] [address] MCHC (RBC) [Mass/Vol] 33.6 % Normal 33.0-37.0 [facility] Comment on above: Performed By: #### C BCND #### [facility] [address] [place] [address] MCV (RBC) [Entitic vol] 89.0 fL Normal 80.0-100.0 [facility] Comment on above: Performed By: #### C BCND #### [facility] [address] [place] [address] Platelets (Bld) [#/Vol] 140 10*3/uL Normal 130-400 [facility] Comment on above: Performed By: #### C BCND #### [facility] [address] [place] [address] RBC (Bld) [#/Vol] 4.73 10*6/uL Normal 4.70-6.10 [facility] Comment on above: Performed By: #### C BCND #### [facility] [address] [place] [address] WBC (Bld) [#/Vol] 5.7 10*3/uL Normal 4.8-10.8 [facility] Comment on above: Performed By: #### C BCND #### [facility] [address] [place] [address] FLUORO FOR SURGICAL PROCEDUR ESon 07-08-2019 FLUORO FOR SURGICAL PROCEDURES Patient : 1945 Age: 74 years Gender: Male Order Date: 07/08/2019 2:14 PM. Exam: FLUORO FOR SURGICAL PROCEDURES Number of Views: 1 Indication: Stimulator lead placement insertion Comparison: None Findings: Spinal stimulating lead at indeterminate spinal level. IMPRESSION: Impression: Spinal stimulating lead at indeterminate spinal level. Fluoroscopic guidance of 85.1 seconds. Interpreted by: Simon Somers MD Signed by: Simon Somers MD 07/09/19 Final result Normal [facility] PROTIME-INROrdered By: Carlos Redd on 07-08-2019 INR Coag (PPP) [Relative time] 1.1 {INR} [employer] Phone: Comment on above: Warfarin Therapy INR Therapeutic: 2.0-3.0 With Mechanical Valve: >2.5 Low-intensity Therapeutic Range: 1.5-2.0 Mod-intensity Therapeutic Range: 2.0-3.0 High-intensity Therapeutic Range: 2.5-3.5 HIgh-intensity Therapeutic Range: 3.0-4.0 Common Critical/Alarm Value: 5.0 Common Upper Limit Reported: 10.0 Effective 02/06/2019: Please note methodology and/or reference ranges have changed. PT Coag (PPP) [Time] 14.1 s [facility]: Comment on above: Effective 02/06/19 Please note methodology and/or reference ranges have changed. Partial Thromboplastin Timeo n 07-08-2019 aPTT Coag (Bld) [Time] 33.3 s Normal 24.4-36.8 [facility] Comment on above: Result Comment: Effe ctive 02/13/2019: Please note methodology and/or reference ranges have changed. aPTT - Heparin Therapeutic Range: 74.0 - 106 seconds Performed By: #### P TT #### [facility] [address] [place] [id number] Prothrombin Timeon 9 INR Coag (PPP) [Relative time] 1.1 {INR} Normal [facility] Comment on above: Result Comment: Warf jessika Therapy INR Therapeutic: 2.0-3.0 With Mechanical Valve: >2.5 Low-intensity Therapeutic Range: 1.5-2.0 Mod-intensity Therapeutic Range: 2.0-3.0 High-intensity Therapeutic Range: 2.5-3.5 HIgh-intensity Therapeutic Range: 3.0-4.0 Common Critical/Alarm Value: 5.0 Common Upper Limit Reported: 10.0 Effective 02/06/2019: Please note methodology and/or reference ranges have changed. Performed By: #### P T #### [facility] [address] [place] [address] PT Coag (PPP) [Time] 14.1 s Normal 12.3-14.9 [facility] Comment on above: Result Comment: Effe ctive 02/06/19 Please note methodology and/or reference ranges have changed. Performed By: #### P T #### [facility] [address] [place] [address] CHEST AND LATERALon 02-07-20 18 CHEST AND LATERAL [facility] Enazbjrbz[address] [facility] [place] [address] Patient Name: INDIO GUEVARA : 1945Sex: MAge: Race: WhiteMRN: [id number]. Location: OUTPPatient Status: DVisit #: [id number] Date: 02/06/2018 7:00:00 AMCompleted Date: 02/06/2018 09:23 AMRequesting Provider: SARINA GUZMAN Attending Provider: SAM GREER Report Copy To: Signs & Symptoms: Post Pacemaker/AICD PlacementHistory: Patient history not availableComments: Check Pacemaker/AICD Lead Position, Chest X-ray PA \EANDE\ LAT in Dept ;DO NOT lift affected arm above shoulder. S/P pacemaker/ICD implant. Verify lead placementExam: CHEST AND LATERALAccession #: [id number] CHEST AND LATERAL 02/06/2018 9:23 AM EDT SIGNS AND SYMPTOMS: Post Pacemaker/AICD Placement TECHNOLOGIST COMMENTS: check leads status post pacemaker placement yesterday shortness of breath QUESTION FOR THE RADIOLOGIST: Check Pacemaker/AICD Lead Position, Chest X-ray PA \EANDE\ LAT in Dept ;DO NOT lift affected arm above shoulder. S/P pacemaker/ICD implant. Verify lead placement PROTOCOL: AP(PA) and Lateral views were obtained. COMPARISON: None FINDINGS: Frontal and lateral views of the chest revealed mild cardiomegaly. Left subclavian subclavian pacemaker is seen with intact wires terminating in the right atrium, right ventricle and coronary sinus. There is small left pleural effusion with blunting of the costophrenic angle and adjacent left basal platelike atelectasis seen. Right lung and costo phrenic recess are clear. Small calcified granulomas in the left parahilar region. IMPRESSION: Satisfactory position of left subclavian tripolar pacemaker with intact wires and no evidence of pneumothorax. Small left pleural effusion and adjacent left lower lobe atelectasis Electronically signed by:Florence Vinson. Transcribed by: [email or web address], User Resident: Electronically Signed by: FLORENCE VINSON @ 02/06/2018 02:44 PM Normal [facility] Comment on above: Order Comment: Check Pacemaker/AICD Lead Position, Chest X-ray PA \EANDE\ LAT in Dept ;DO NOT lift affected arm above shoulder. S/P pacemaker/ICD implant. Verify lead placement Cardiovascular Lab Reporton 02-06-2018 Cardiovascular Lab Report [facility] Patient Name: Indoi Guevara [facility] MR #: [id number] Physician: Sam MasonDepartment of Stiven GreerMedicine Service Date: 02/05/2018Division of Birthdate: 6Cardiology Room #: 3CD [id number] CardiovascularServicesUniversit y SxlycpuFmsxkb[address] [place], [place] [address]Dlfwz Fax Cardiovascular Laboratory ReportINDICATION: Mr. Indio Guevara is a 72-year-old gentleman, who I saw inthe [place] office. He sees Dr. Long. He was referred for a CRTDprocedure. He has ejection fraction of 20% to 25%, chronic low ejectionfraction as well, he has a left bundle-branch block with a QRS duration ofapproximately 170 milliseconds.I saw him in the [place] office, went over the procedure, risks andbenefits with the gentleman and his family, and he comes in today. Consentwas obtained.He was brought to the EP suite, sterilely prepped and draped. He was givenvancomycin and cefazolin.Using a peripheral IV and 10 mL of dye contrast injection, the basiliccephalic subclavian system was made.Using the venogram as a marker, 3 percutaneous accesses to the leftsubclavian vein were achieved.Through the use of scalpel, scissors, and Bovie, a dissection was takendown to the pectoralis muscle after local anesthesia with lidocaine.Pacemaker pocket was created with blunt dissection. Antibiotic soakedsponges were left in the pocket.The use of breakaway introducer sheath, atrial and ventricular leads wereplaced. They were tested including 10 V pacing tethered with 0 silk.At that point, a 10-Danish docking station was placed.A long sheath with a decapolar catheter was placed and access of thecoronary sinus was achieved.Coronary sinus venography was done. However, adequate opacification of thevessels was not satisfactory, so a Agudelo balloon-tipped catheter was usedto get a satisfactory venogram. He had very poor targets. However, he had1 suitable vein that was small, and I had some concern about its ability toaccommodate the lead. However, using a guidewire, the lead was able to besuccessfully placed in the branch. It was tested including 10 V pacing.The leads were all tethered with 0 silk.The sponges were removed from the pocket. The pocket was irrigated withbacitracin and gentamicin. The device was attached, secured, placed in thepocket, tethered with the header suture. The pocket was re-irrigated andclosed in 2 running layers of 2-0 Vicryl, running layer of 3-0 Vicryl,adhered with Dermabond and Steri-Strips. Sponge and needle counts werecorrect. There were no apparent complications. There was 32 mL ofcontrast used in 39 minutes of fluoroscopy. The device was a [id number], serial number [id number]. The atrial lead is a Medtronic [id number]. The ventricular lead is a Medtronic 6935 [id number]. The leftventricular lead is a Medtronic [id number], serial number [id number].Sensed P and R waves were 3.5 mV with the P waves 7 mV, the R-wave in theRV and 9.4, the LV impedance 627 ohms in the atrium 642, in the [id number] in the coronary sinus. Pacing threshold at 0.5 milliseconds with 0.8 Odell the right ventricle, 1.2 V in the atrium, and 1.8 V in the leftventricle. Multiple vectors were tested, and at the end of the case,Medtronic will go through a thorough set of vectors.ASSESSMENT:1. Conscious sedation.2. Fluoroscopy.3. Contrast injection for venography.4. Venography of the upper extremity.5. Venography of the coronary sinus.6. Placement of a dual-chamber pacemaker defibrillator.7. Placement of a coronary sinus LV lead.Electronically Signed by:Sam Greer M.D. 02/11/2018 11:05 A Sam Greer M.D.Date Dict: 02/05/2018/01:25 P/Sam Greer M.D.Date Trans: 02/06/2018 06:47 [id number]: Ren Marcial D.O. [address] [place] [address] [facility] Vital Signs Date Time Vital Sign Value Performing Clinician Faci lity 08-07-2019 16:25-0500 Diastolic blood pressure 78 mm[Hg] Enrique Mayers MD Work Phone: [employer] Work Phone: 08-07-2019 16:25-0500 Heart rate 78 /min Enrique Mayers MD Work Phone: [employer] Work Phone: 08-07-2019 16:25-0500 Respiratory rate 20 /min Enrique Mayers MD Work Phone: [employer] Work Phone: 08-07-2019 16:25-0500 SaO2% (BldA) [Mass fraction] 95 % Enrique Mayers MD Work Phone: [employer] Work Phone: 08-07-2019 16:25-0500 Systolic blood pressure 148 mm[Hg] Enrique Mayers MD Work Phone: [employer] Work Phone: 08-07-2019 10:51-0500 Body height 184.2 cm Enrique Mayers MD Work Phone: [employer] Work Phone: 08-07-2019 10:51-0500 Body mass index (BMI) [Ratio] 34.78 kg/m2 Enrique Mayers MD Work Phone: [employer] Work Phone: 08-07-2019 10:51-0500 Body temperature 97.59 [degF] Enrique Mayers MD Work Phone: [employer] Work Phone: 08-07-2019 10:51-0500 Body weight 117.94 kg Enrique Mayers MD Work Phone: [employer] Work Phone: 07-08-2019 15:25-0500 Body temperature 98.01 [degF] Enrique Mayers MD Work Phone: [employer] Work Phone: 07-08-2019 15:25-0500 Diastolic blood pressure 94 mm[Hg] Enrique Mayers MD Work Phone: [employer] Work Phone: 07-08-2019 15:25-0500 Heart rate 78 /min Enrique Mayers MD Work Phone: [employer] Work Phone: 07-08-2019 15:25-0500 Respiratory rate 16 /min Enrique Mayers MD Work Phone: [employer] Work Phone: 07-08-2019 15:25-0500 SaO2% (BldA) [Mass fraction] 97 % Enrique Mayers MD Work Phone: [employer] Work Phone: 07-08-2019 15:25-0500 Systolic blood pressure 158 mm[Hg] Enrique Mayers MD Work Phone: [employer] Phone: 07-08-2019 11:45-0500 Body height 182.9 cm Enrique Mayers MD Work Phone: [employer] Work Phone: 07-08-2019 11:45-0500 Body mass index (BMI) [Ratio] 35.26 kg/m2 Enrique Mayers MD Work Phone: [employer] Work Phone: 07-08-2019 11:45-0500 Body weight 117.94 kg Enrique Mayers MD Work Phone: [employer] Phone: Encounters Encounter Date Encounter Type Care Provider Facility Start: 10-28-2024 ambulatory [facility] Start: 10-21-2024 ambulatory [facility] Start: 09-17-2024 ambulatory [facility] Start: 08-19-2024 ambulatory [facility] Start: 07-31-2024 ambulatory [facility] Start: 07-25-2024 ambulatory [facility] Start: 07-08-2024 End: 07-08-2024 ambulatory [facility] Start: 07-04-2024 ambulatory [facility] Start: 06-23-2024 ambulatory [facility] Start: 06-11-2024 ambulatory [facility] Start: 05-16-2024 ambulatory [facility] Start: 05-08-2024 ambulatory [facility] Start: 03-03-2024 ambulatory [facility] Start: 01-25-2024 ambulatory [facility] Start: 01-14-2024 ambulatory [facility] Start: 01-07-2024 ambulatory [facility] Start: 01-02-2024 ambulatory [facility] Start: 01-02-2024 Encounter for preprocedural cardiovascular examination [facility] Start: 12-26-2023 End: 12-26-2023 ambulatory CASSANDRA [facility] Start: 12-11-2023 End: 12-11-2023 ambulatory [facility] Start: 01-22-2023 ambulatory Nino Hughes ty:[facility] Start: 07-25-2022 End: 07-26-2022 ambulatory CRISSY KINGSLEY Facility:[facility] Start: 07-13-2022 End: 07-14-[address] CASSANDRA LONG Facility:[facility] Start: 11-11-[address] CASSANDRA LONG Fac ility:[facility] Start: 11-08-2021 End: 11-09-[address] CASSANDRA LONG Facility:[facility] Start: 11-04-2021 End: 11-05-[address] CASSANDRA LONG Facility:[facility] Start: 10-04-2021 ambulatory Nino BAE Facility :[facility] Start: 10-04-2021 End: 10-05-2021 ambulatory Nino BAE Facility:[facility] Start: 09-30-2021 End: 10-01-[address] RANDALL HEARD JR Facility:[facility] Start: 08-07-2019 End: 08-07-2019 Patient encounter procedure [facility] Start: 08-07-2019 End: 08-07-2019 Subsequent hospital visit by physician Enrique Mayers MD Work Phone: [facility] Comment on above: Post-op pain (Primar y Dx) Start: 08-07-2019 End: 08-10-2019 Patient encounter procedure [facility] Start: 08-07-2019 End: 08-09-2019 Subsequent hospital visit by physician Enrique Mayers MD Work Phone: [facility] Radiology Comment on above: Pain Start: 07-08-2019 End: 07-08-2019 Patient encounter procedure [facility] Start: 07-08-2019 End: 07-08-2019 Subsequent hospital visit by physician Enrique Mayers MD Work Phone: [facility] Start: 07-08-2019 End: 07-11-2019 Patient encounter procedure [facility] Start: 02-05-2018 End: 02-06-2018 Patient encounter SAM GREER Facility:[facility] Start: 01-11-2018 End: 01-12-2018 Patient encounter PROVIDER UNKNOWN Facility:[facility] Start: 01-10-2018 End: 01-11-2018 Patient encounter DEFAULT PHYSICIAN Facility:[facility] Procedures Date Procedure Procedure Detail Performing Clinician Start: 09-30-[address] CASSANDRA LONG Comment on above: Performed By: #### P SAD #### [facility] [address] [place] [address] Dr. Javy Brian Start: 08-07-2019 INCENTIVE SPIROMETRY RT ENRIQUE YANCY Start: 08-07-2019 DISCHARGE PATIENT ENRIQUE YO O Start: 08-07-2019 FLUORO FOR SURGICAL PROCEDURES ENRIQUE YANCY Start: 08-07-2019 INCENTIVE SPIROMETRY RT ENRIQUE YANCY Start: 08-07-2019 FLUORO FOR SURGICAL PROCEDURES Enrique Mayers MD Work Phone: Start: 08-07-2019 INCENTIVE SPIROMETRY RT ENRIQUE YANCY Start: 08-07-2019 Continuous pulse oximetry ENRIQUE YANCY Start: 08-07-2019 ASSESS ENRIQUE YANCY Start: 08-07-2019 BEDREST ENRIQUE YANCY Start: 08-07-2019 ENCOURAGE DEEP BREAT BHAVNA AND COUGHING ENRIQUE YANCY Start: 08-07-2019 INCENTIVE SPIROMETRY RT ENRIQUE YANCY Start: 08-07-2019 NEURO/VASCULAR CHECKS B O YANCY Start: 08-07-2019 NURSING COMMUNICATION B O YANCY Start: 08-07-2019 INITIATE OXYGEN THER APY PROTOCOL ENRIQUE YANCY Start: 08-07-2019 NOTIFY PHYSICIAN (SPECIFY) ENRIQUE YANCY Start: 08-07-2019 PULSE OXIMETRY SPOT CHECK ENRIQUE YANCY Start: 08-07-2019 VITAL SIGNS ENRIQUE YANCY Start: 07-08-2019 DISCHARGE PATIENT ENRIQUE YO O Start: 07-08-2019 FLUORO FOR SURGICAL PROCEDURES ENRIQUE YANCY Start: 07-08-2019 INCENTIVE SPIROMETRY RT ENRIQUE YANCY Start: 07-08-2019 Blood count complete automated ENRIQUE YANCY Start: 07-08-2019 Basic metabolic pane l calcium total ENRIQUE YANCY Start: 07-08-2019 Prothrombin time ENRIQUE YANCY Start: 07-08-2019 Thromboplastin time partial plasma/whole blood ENRIQUE YANCY Start: 07-08-2019 Continuous pulse oximetry ENRIQUE YANCY Start: 07-08-2019 ASSESS ENRIQUE YANCY Start: 07-08-2019 BEDREST ENRIQUE YANCY Start: 07-08-2019 ENCOURAGE DEEP BREAT BHAVNA AND COUGHING ENRIQUE YANCY Start: 07-08-2019 INCENTIVE SPIROMETRY RT ENRIQUE YANCY Start: 07-08-2019 NEURO/VASCULAR CHECKS B O YANCY Start: 07-08-2019 NURSING COMMUNICATION B O YANCY Start: 07-08-2019 Ecg routine ecg w/le ast 12 lds w/i&r ENRIQUE YANCY Start: 07-08-2019 INITIATE OXYGEN THER APY PROTOCOL ENRIQUE YANCY Start: 07-08-2019 NOTIFY PHYSICIAN (SPECIFY) ENRIQUE YANCY Start: 07-08-2019 PULSE OXIMETRY SPOT CHECK ENRIQUE YANCY Start: 07-08-2019 VITAL SIGNS ENRIQUE YANCY Start: 07-08-2019 End: 07-08-2019 Basic metabolic panel calcium total Tone Redd MD Work Phone: Plan of Treatment Date Care Activity Detail Author Start: 08-22-2019 End: 08-22-2019 Patient encounter procedure 08/22/2019 Office Visit Neurosurgery Enrique Mayers MD [address], [address] [place] [id number] [employer]. Start: 07-11-2019 End: 07-11-2019 Patient encounter procedure 07/11/2019 Office Visit Neurosurgery Enrique Mayers MD [address], [address] [place] [id number] [employer]. Start: 03-30-2019 Influenza vaccination Flu vaccine (# 1) [employer] Phone: Start: 01-19-2019 Annual Wellness Visi t (AWV) Annual Wellness Visit (AWV) [employer] Phone: Start: 2011 Pneumococcal 65+ yea rs Vaccine (1 of 1 - PPSV23) Pneumococcal 65+ years Vaccine (1 of 1 - PPSV23) [employer] Phone: Start: 02-28-1996 Colon cancer screen colonoscopy Colon cancer screen colonoscopy [employer] Phone: Start: 02-28-1996 Shingles Vaccine (1 of 2) Lester gles Vaccine (1 of 2) [employer] Phone: Start: 1986 Lipid screen Lipid screen [facility] Work Phone: Start: 1957 DTaP/Tdap/Td vaccine (1 - Tdap) DTaP/Tdap/Td vaccine (1 - Tdap) [employer] Phone: Start: 1945 Hepatitis C screen Hepatitis C scree n [employer] Phone: EKG 12 Lead EKG 12 Lead ECG Routine 07/08/2019 12:00 PM EST [employer] Phone: [facility] Work Phone: Comment on above: Every 2hr while awak e until discontinued starting 07/08/2019 Every 2hr while awak e until discontinued starting 08/07/2019 Initiate Oxygen Ther apy Protocol [employer] Phone: Comment on above: Daily until disconti nued starting 07/08/2019 Daily until disconti nued starting 08/07/2019 Phase I & II - meter ed glucose [employer] Phone: Comment on above: As Needed until disc ontinued starting 07/08/2019 As Needed until disc ontinued starting 08/07/2019 End: 07-08-2019 Pulse Oximetry Spot Check Pulse Oximetry Spot Check Respiratory Care Routine One Time for 1 Occurrences starting 07/08/2019 until 07/08/2019 [employer] Phone: Comment on above: One Time for 1 Occur rences starting 07/08/2019 until 07/08/2019 End: 08-07-2019 Pulse Oximetry Spot Check Pulse Oximetry Spot Check Respiratory Care Routine One Time for 1 Occurrences starting 08/07/2019 until 08/07/2019 [employer] Phone: Comment on above: One Time for 1 Occur rences starting 08/07/2019 until 08/07/2019 Payers Date Payer Category Payer Medicare MEDICARE MEDICAR E PART A AND B xxxxxxxxxxx 2017-Present [phone] [address] [address] [place] [address] xxxxxxxxxxx [id number] 2017 Unknown [employer] M [employer] [address] xxxxxxxxxxxx 2017-Present [phone] [address] [place] [address] xxxxxxxxxxxx [id number] 1959 Medicare [id number] 1959 Self-pay 1959 Unknown [id number] 1945 Unknown [id number] 1945 Unknown [id number] 1946 Unknown [id number] 1946 Unknown [id number] 1946 Unknown [id number] 1946 Unknown [id number] 1946 Unknown [id number] [id number] 1946 Unknown [id number] 1946 Unknown [id number] 1946 Unknown [id number] 1945 Unknown [id number] 1945 Unknown [id number] Medicare [id number] Unknown Social History Date Type Detail Facility Start: 07-07-2019 End: 08-08-2019 Tobacco smoking status [facility] Never smoker [employer] Phone: Start: 07-07-2019 End: 08-08-2019 Alcohol intake Current non-drinker of alcohol (finding) [employer] Phone: Sex Assigned At Not on file [employer] Phone: Medical Equipment Procedure Code Equipment Code Equipment Origin al Text Equipment Identifier Dates Lead Trial Compc t Perc 1x8 [id number] Start: 07-08-2019 Stimulator Intel lis Adaptive Stim Mri - [id number] Start: 08-07-2019 Lead Pain 1x8 60 cm [employer] [id number] Start: 08-07-2019 Lead Pain 1x8 60 cm [employer] [id number] Start: 08-07-2019 Progress note 12-26-2023 Note Date & Type Note Facility 12-26-2023 Note [place] [facility] Subjective Indio Guevara is a 78 y.o. year old male patient being seen for 6 mo follow up systolic heart failure, hypertension, and ischemic congestive cardiomyopathy. His device was interrogated in the office 2 weeks ago. PCP switched his Jardiance to Farxiga. No recent labs or imaging. He denies chest pain, SOB, palpitations, and lightheadedness/syncope. Patient Active Problem List Diagnosis Cardiomyopathy (CMS/HCC) Benign prostatic hyperplasia with urinary obstruction Cyst of epididymis Former smoker History of renal calculi Benign hypertensive cardiomyopathy with heart failure (CMS/HCC) Ischemic congestive cardiomyopathy (CMS/HCC) LBBB (left bundle branch block) Nocturia Pain in testicle Poor urinary stream Preoperative cardiovascular examination Systolic heart failure (CMS/HCC) Family History Problem Relation Name Age of Onset Stroke Father Social History Tobacco Use Smoking status: Never Smokeless tobacco: Never Substance Use Topics Alcohol use: Yes Comment: occasional HPI Indio is seen in follow up. He is a 78-year-old man who is seen in follow-up on nonischemic cardiomyopathy, systolic heart failure and prior to biventricular ICD placement. He has history of non ischemic Cardiomyopathy and systolic heart failure with cath in 2007 at [facility] showing no significant CAD when his EF was 30%. On a prior echocardiogram at [facility] there was reduced EF 30% and possible apical thrombus. A follow up echocardiogram with definity on 01/11/2018 showed EF 25% with no thrombus. He has a know chronic LBBB with QRS close to 180 ms. He underwent BiV/ICD on 02/05/[address] Greer. His follow-up echocardiogram in March 2023 showed low normal ventricular systolic function. Today he reports that he has been doing well. He has no angina no heart failure symptoms. No leg edema. NYHA class I. Review of Systems HENT: Positive for tinnitus. Musculoskeletal: Positive for back pain and joint pain. Neurological: Positive for numbness. All other systems reviewed and are negative. Objective Visit Vitals BP 102/62 (BP Location: Left arm, Patient Position: Sitting) Pulse 62 Ht 1.854 m (6' 1 ) Wt 121 kg (267 lb) SpO2 95% BMI 35.23 kg/m??? Smoking Status Never BSA 2.5 m??? Physical Exam Constitutional: Appearance: He is well-developed. He is obese. He is not ill-appearing. HENT: Head: Normocephalic and atraumatic. Nose: Nose normal. Eyes: General: No scleral icterus. Pupils: Pupils are equal, round, and reactive to light. Neck: Thyroid: No thyromegaly. Vascular: No JVD. Cardiovascular: Rate and Rhythm: Normal rate and regular rhythm. Pulses: Radial pulses are 2+ on the right side and 2+ on the left side. Heart sounds: Normal heart sounds. No murmur heard. No friction rub. No gallop. Pulmonary: Effort: Pulmonary effort is normal. No respiratory distress. Breath sounds: Normal breath sounds. No wheezing or rales. Chest: Chest wall: No tenderness. Abdominal: General: Bowel sounds are normal. There is no distension. Palpations: Abdomen is soft. Tenderness: There is no abdominal tenderness. Musculoskeletal: General: No swelling. Cervical back: Neck supple. Comments: Uses a cane to assist with ambulation Skin: General: Skin is warm and dry. Neurological: General: No focal deficit present. Mental Status: He is alert and oriented to person, place, and time. Psychiatric: Mood and Affect: Mood normal. Behavior: Behavior is cooperative. Judgment: Judgment normal. Allergies Allergies Allergen Reactions Tamsulosin Other and Unknown Passed out Medications Current Outpatient Medications: allopurinol (Zyloprim) 300 mg tablet, allopurinol 300 mg tablet TAKE 1 TABLET BY MOUTH EVERY DAY, Disp: , Rfl: DULoxetine (Cymbalta) [address] capsule, Take 60 mg by mouth at bedtime., Disp: , Rfl: ezetimibe (Zetia) 10 mg tablet, Take 10 mg by mouth at bedtime., Disp: , Rfl: famotidine (Pepcid) 40 mg tablet, Take 40 mg by mouth in the morning., Disp: , Rfl: Farxiga 10 mg, TAKE 1 TABLET BY MOUTH EVERY DAY IN THE MORNING FOR 90 DAYS, Disp: , Rfl: finerenone (Kerendia) 10 mg tablet, Take 1 tablet by mouth in the morning., Disp: , Rfl: hydroxychloroquine (Plaquenil) 200 mg tablet, Take 1 tablet by mouth in the morning., Disp: , Rfl: metoprolol succinate XL (Toprol-XL) 25 mg 24 hr tablet, TAKE 1 TABLET (25 MG) BY MOUTH ONCE DAILY DIRECTED., Disp: 90 tablet, Rfl: 3 montelukast (Singulair) 10 mg tablet, montelukast 10 mg tablet, Disp: , Rfl: pregabalin (Lyrica) 200 mg capsule, Take 200 mg by mouth in the morning and at bedtime., Disp: , Rfl: rosuvastatin (Crestor) 10 mg tablet, Take 10 mg by mouth at bedtime., Disp: , Rfl: sacubitriL-valsartan (Entresto) 49-51 mg tablet, Entresto 49 mg-51 mg tablet TAKE 1 TABLET BY MOUTH TWICE A DAY *HOLD IF BLOOD PRESSURE LESS THAN 100*, (more content not included)... [facility] History of Present illness Narrative 08-07-2019 Alexandra Cody RN - 08/07/2019 4:19 PM EST Note Date & Type Note Facility 08-07-2019 History of Present illness Narrative disch inst and 2 presc given and explained to pt and son documented in this encounter [employer] Phone: Hospital Discharge instructions 08-07-2019 Instructions Note Date & Type Note Facility 08-07-2019 Hospital Discharg e instructions Alexandra Cody RN - 08/07/2019 Ice packs to the incision Shower on Sunday documented in this encounter [employer] Phone: History of Present illness Narrative 07-08-2019 Oralia Griffin RN - 07/08/2019 3:27 PM Oralia Smith RN - 07/08/2019 3:08 PM Oralia Smith RN - 07/08/2019 3:03 PM Oralia Smith RN - 07/08/2019 2:59 PM EST Note Date & Type Note Facility 07-08-2019 History of Present illness Narrative Dc instructions given to pt and son, verbalized understanding, pt up to bathroom with assist and tolerated well, pt voided, denies nausea, iv dc'd, pt getting dressed Pt eating pretzels and drinking soda, tolerating well medtronic in talking with pt and family Dr mayers in room talking with pt and son Per Nicolas RN in OR only magnet is needed for case for AICD. Patient has a Medtronic Pacemaker/AICD on the left side and will bring cards day of surgery.He has not had it interrogated recently. He will buy hibiclens and shower with it at home. Nicole from our pacemaker clinic is checking with rep. So they can be here tomorrow for pacemakerAICD interrigation. Dr. Moser notified of above. documented in this encounter [employer] Phone: Hospital Discharge instructions 07-08-2019 Instructions Note Date & Type Note Facility 07-08-2019 Hospital Discharg e Oralia Barkley RN - 07/08/2019 May shower and ambulate. Follow instructions of medtronic documented in this encounter [employer] Phone: Evaluation note Note Date & Type Note Facility Evaluation note Diagnosis Post-op pain- Primary Other acute postoperative pain documented in this encounter [employer] Phone: Evaluation note Note Date & Type Note Facility Evaluation note Diagnosis Pain Generalized pain documented in this encounter [employer] Phone: Summary Purpose Family History No Family History Records FoundNo Family History Records FoundNo Family History Records FoundNo Family History Records FoundNo Family History Records Found Advance Directives No Advanced Directives Records FoundDocuments on File Type Date Recorded 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 Advance Directives and Living Will Power of Billiard Player Reason for Referral Status Reason Specialty Diagnoses / Procedures Referred By Contact Referred To Contact Pending Review Radiology Diagnoses Pain Procedures Fluoro For Surgical Procedures Enrique Mayers MD [address], [address] [place] [address] Additional Source Comments (unrecognized sect ion and content) No Status Records FoundNo Status Records FoundNo Status Records FoundNo Status Records FoundNo Status Records Found INFORMATION SOURCE (unrecogn ized section and content) DATE CREATED AUTHOR 02/12/2018 [facility] DATE CREATED AUTHOR AUTHOR'S ORGANIZ ATION 08/09/2019 [facility] DATE CREATED AUTHOR AUTHOR'S ORGANIZ ATION 07/28/2022 [facility] DATE CREATED AUTHOR AUTHOR'S ORGANIZ ATION [facility]/2022 [facility] DATE CREATED AUTHOR AUTHOR'S ORGANIZ ATION 10/29/2024 [place] Reason for Visit (unrecogniz ed section and content) Status Reason Specialty Diagnoses / Procedures Referre d By Contact Referred To Contact Diagnoses RADICULOPATHY, STENOSIS, SPONDYLOSIS Procedures AK NJX DX/THER SBST INTRLMNR CRV/THRC W/IMG GDN D.C.S. (DORSAL COLUMN STIMULATOR) TRIAL 1 HOUR/ 1 C-ARM/ [facility] (PAT SAME DAY OF SURGERY) Enrique Mayers MD [address], [address] [place] [address] [facility] Status Reason Specialty Diagnoses / Procedures Referre d By Contact Referred To Contact Diagnoses Cervical spondylosis with myelopathy and radiculopathy RADICULOPATHY SPONDYLOSIS Procedures AK IMPLANT NEUROSTIM/BURR BENCH OPERATOR PERMANENT DCS (DORSAL COLUMN STIMULATOR)PLACEMENT, 1 HOUR/ 1 C-ARM/ [facility], *NEED MAGNET FOR PACEMAKER, PAT COMPLETED 07/08/19 Enrique Mayers MD [address], [address] [place] [address] [facility] FOR RECORDS PERTAINING TO PATIENTS WHO ARE OR HAVE BEEN ENROLLED IN A CHEMICAL DEPENDENCY/SUBSTANCEABUSE PROGRAM, SOME INFORMATION MAY BE OMITTED. This clinical summary was aggregated from multiple sources. Caution should be exercised in using it in the provision of clinical care. This summary normalizes information from multiple sources, and as a consequence, information in this document may materially change the coding, format and clinical context of patient data. In addition, data may be omitted in some cases. CLINICAL DECISIONS SHOULD BE BASED ON THE PRIMARY CLINICAL RECORDS. [facility]. provides no warranty or guarantee of the accuracy or completeness of information in this document.
--- NOTE | 2024-11-06 13:15 | P.CN_ITS ---
Consult Note: HPI Data of Consult Patient: new to practice Requesting Physician: Gissel Sequeira NP Primary Care Provider: GIAN MARCIAL DO Consult Narrative Reason for consult: return pt for low back pain Narrative: pleasant 79 year old male presents for evaluation of chronic thoracic and lumbar pain, hx of l4,5,S1 fusion and medtronic SCS implant as of 2019, who has failed to benefit from > 6 weeks of PT, provider guided HEP, heat, ice, tylenol, NSAIDs. currently utilizing duloxetine, lyrica, tylenol, baclofen with mild relief. pain today 3/10 throbbing, pain significantly increased with standing and walking. radicular pain well controlled with scs per pt. denies falls or injury over the last 6 months. of note pt has a medtronic pacemaker as well. cc:: CC: Gissel Sequeira NP Review of Systems ROS Status of ROS 10 or more systems reviewed and unremark able except as noted in history and below Musculoskeletal Reports: back pain and extremity pain PFSH PFSH Social History Smoking status: Never smoker Meds Home Medications and Allergies Allergies Allergy/AdvReac Type Severity Reaction Status Date / Time No Known Drug Allergies Allergy Verified 01/04/23 00:53 Exam Constitutional Documenting provider has reviewed patient's vital signs: yes Common normals: no apparent distress, oriented x3, healthy appearing, alert and well nourished General appearance: cooperative HENMT Common normals: normocephalic, hearing grossly normal bilaterally and moist oral mucous membranes Head and scalp: normocephalic Eye Common normals: PERRL Pupil: PERRL Neck & C-Spine Common normals: full ROM General: normal visual inspection Chest Common normals: inspection of chest normal Respiratory Common normals: normal respiratory effort, no retractions and no use of accessory muscles Back & Pelvis Thoracic spine/upper back: ROM limited, pain with ROM and thoracic spinal tenderness T-spine tenderness location: T10, T11 and T12 Lumbar spine/lower back: ROM limited, pain with ROM, lumbar spinal tenderness Lumbar spinal tenderness location: L1, L2 and L3 and straight leg raise positive right Other: decreased sensation bilateral to BLE following numerous dermatomal pathways strength 4/5 in BLE increased pain with standing and walking, improved with forward flexion Neuro Common normals: oriented x3 Sensorium/orientation: alert Psych Common normals: mental status grossly normal, thought process normal, quality coordinator perative, affect normal, speech normal and activity/motor behavior normal Speech: normal speech Thought process: normal thought process Results Additional Findings Additional findings: If on a controlled substance or opioids, I have checked an [place]AR[place] report on this patient and there are no aberrancies noted in the prescribing history.??If on a controlled substance or opioid a drug screen was completed and reviewed within the last year, and if there has not been a drug screen completed we ordered one today to monitor higher risk, state monitored pain medication use. As part of providing excellent, safe, comprehensive care, the following was completed at our patient's visit: 1. A medication reconciliation and review to ensure accurate knowledge of current/active medications, including asking our patients to inform us about any [id number]-[id number] medications or herbal remedies/nutritional supplements/alternative remedies. 2. A review to specifically ensure our patients have had annual screening for screening for depression, screening for tobacco use, and screening for unhealthy alcohol use. For concerning screenings had a discussion with the patient, provided patient education, and recommended follow-up with primary care provider when appropriate. If patient noted with a risk of falling, they received education on strength, gait, and balance training to prevent future risk of falling. Portions of this note may have been carried over from the previous visit and updated as appropriate. Please note this office utilizes paper charting in addition to the electronic medical record. A list of current medications, vitals, and PMH is available there as the clinical staff outside of myself do not have access to [employer] charting during the clinic day operations. As part of providing quality comprehensive care the current medications, vitals, and PMH were reviewed in the paper chart. Assessment and Plan Assessment and Plan (1) Lumbar stenosis with neurogenic claudication: (2) Failed back syndrome: (3) S/P insertion of spinal cord stimulator: (4) Lumbar spondylosis: (5) Thoracic spondylosis: Plan 79 year old male with chronic thoracic and lumbar pain post scs implant and l4,5,s1 fusion with severe pain unresponsive to > 6 weeks of PT, provider guided HEP, heat, ice, tylenol, nsaids. no recent imaging for review. will update thoracic xray and lumbar xray with flexion to assess spinal cord stim leads as well as spondylosis of thoracic and lumbar spine and stability of lumbar spine. update lumbar MRI without contrast to assess lumbar stenosis with NC. f/u to review imaging. no medication changes at this time. KITCHEN AND BATH DESIGNER reviewed and signed, defer UDS.
== END 2024-11-06 12:12 | disposition home or self-care (01) ==
PROVIDERS: PCP Internal Medicine; Visit Provider Nurse Practitioner
DX: M48.062 Spinal stenosis, lumbar region with neurogenic claudication (principal); M96.1 Postlaminectomy syndrome, not elsewhere classified; M47.816 Spondylosis without myelopathy or radiculopathy, lumbar region; M47.814 Spondylosis without myelopathy or radiculopathy, thoracic region; Z96.82 Presence of neurostimulator
CPT/HCPCS: 72070; 72114; G0463

== ENCOUNTER 2024-11-06 13:23 | Outpatient (OUT) | payer MEDICARE, OTHER, SELFPAY ==
--- NOTE | 2024-11-06 13:32 | XR_ITS ---
The [place] [id number] Patient Name: INDIO GUEVARA MRN: [id number] date: 1945 Sex: M Assigned Patient Location: [facility] Current Patient Location: PM Accession/Order Number: [id number] Exam Date: 11/06/2024 15:11 Report Date: 11/06/2024 15:12 At the request of: MORALES COREY NP Procedure: XR thoracic spine 2V THORACIC SPINE - - 3 views CLINICAL HISTORY: Failed Bacl Syndrome, Lumbar Stenosis COMPARISON: None FINDINGS: Neurostimulator device is in place. Vertebral body heights appear maintained. Scattered endplate degenerative changes. Pedicles appear intact. XR/XR thoracic spine 2V IMPRESSION: SCATTERED ENDPLATE DEGENERATIVE CHANGES. NO ACUTE BONY PROCESS IS SEEN. Impression dictated by: Bennett Buenrostro Jr., DMykelOMykel11/06/2024 3:12 PM Dictation Location: [facility] Electronically authenticated by: [id number] Y Date: 11/06/2024 15:12
--- NOTE | 2024-11-06 13:32 | XR_ITS ---
The [address] [address] Patient Name: INDIO GUEVARA MRN: [id number] date: 1945 Sex: M Assigned Patient Location: [facility] Current Patient Location: PM Accession/Order Number: [id number] Exam Date: 11/06/2024 15:03 Report Date: 11/06/2024 15:09 At the request of: MORALES COREY NP Procedure: XR lumbar spine 6V w bending LUMBAR SPINE - 7 views CLINICAL HISTORY: Lumbar Stenosis, Failed Back Syndrome COMPARISON: Lumbar spine 03/18/2018 FINDINGS: Posterior hardware fixation L4-S1 without radiographic complication. Vertebral body heights appear maintained. Scattered endplate and facet joint degenerative changes with moderate disc space narrowing L2-L3 and L3-L4 similar to the prior study with laminectomy defects present. No pathologic motion on flexion or extension views. XR/XR lumbar spine 6V w bending IMPRESSION: POSTERIOR HARDWARE FIXATION L4-S1 WITHOUT EVIDENCE OF HARDWARE COMPLICATION. 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 Impression dictated by: Bennett Buenrostro Jr., D.O.11/06/2024 3:09 PM Dictation Location: [place] [address] Electronically authenticated by: [id number] Y Date: 11/06/2024 15:09
== END 2024-11-06 13:24 | disposition home or self-care (01) ==
LOC: RAD 13:26
PROVIDERS: PCP Internal Medicine; Visit Provider Nurse Practitioner
DX: M48.062 Spinal stenosis, lumbar region with neurogenic claudication (principal); M96.1 Postlaminectomy syndrome, not elsewhere classified
CPT/HCPCS: 72070; 72114

== ENCOUNTER 2024-12-16 10:18 | Outpatient (OUT) | payer MEDICARE, OTHER, SELFPAY ==
--- OUTSIDE RECORDS SUMMARY | 2024-12-16 10:24 | XMS_ITS | CCD ---
Author Organization [facility] Care Team Providers [place] [employer] Worker Name Role Phone PHYSICIAN, DEFAULT Unavailable Unavailable PHYSICIAN, DEFAULT Unavailable Unavailable REN MARCIAL Unavailable Unavailable UNKNOWN, PROVIDER Unavailable Unavailable UNKNOWN, PROVIDER Unavailable Unavailable REN MARCIAL Unavailable Unavailable VALONE, REN Unavailable Unavailable SAM GREER Unavailable Unavailable SAM GREER Unavailable Unavailable REN MARCIAL Unavailable Unavailable VALONEREN Unavailable Unavailable YANCY, ENRIQUE H. Admitting Unavailable [...] ETHAN, DR TRUJILLO Admitting Unavailable MOUKAGUERA, DR TRUJILLO Attending Unavailable VALYOON, DR SPRINGER [...] Garcia Attending Unavailable SAVITA, KASH Referring Unavailable SAVITA, KASH Referring Unavailable SAVITA, KASH Referring Unavailable SAVITA, KASH Referring Unavailable SAVITA, KASH Referring Unavailable SAVITA, KASH Referring Unavailable ELVIS, EDUARD Referring Unavailable SAVITA, KASH Referring Unavailable SAVITA, KASH Referring Unavailable ELVIS, EDUARD Referring Unavailable ELVIS, EDUARD Referring Unavailable ELVIS, EDUARD Referring Unavailable ELVIS, EDUARD Referring Unavailable MOUKARBEL, CASSANDRA Attending Unavailable SAVITA, KASH Referring Unavailable ELVIS, EDUARD Referring Unavailable SAVITA, KASH Attending Unavailable SAVITA, KASH Referring Unavailable ELVIS, EDUARD Referring Unavailable ELVIS, EDUARD Referring Unavailable SAVITA, KASH Referring Unavailable SAVITA, KASH Referring Unavailable SAVITA, KASH Referring Unavailable Allergies Allergy Classification Reported Allergen(s) Allergy Type Date of Onset Reaction(s) Facility (3 sources) tamsulosin Drug Allergy 06-30-2016 [facility] Repository (1 source) NO KNOWN DRUG ALLERGIES Drug allergy (disorder) 06-09-2009 [facility]ository (3 sources) tamsulosin Drug Allergy 07-07-2019 [facility] (2 sources) tamsulosin; Translations: [tamsulosin] Drug Allergy 02-03-2015 [facility] Repository Medications Current Medications Medication Drug [...] oral tablet (3 sources) Angiotensin 2 Receptor Ivdhi sacubitril-valsarta n (ENTRESTO) 97-103 MG per tablet [...] Onset: 02-05-2018 Chronic Other aftercare (1 source) 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; 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] Onset: 02-05-2018 Episodic Micheline-; endo-; and myocarditis; cardiomyopathy (8 sources) Cardiomyopathy, unspecified; Translations: [Other cardiomyopathies] Onset: 02-05-2018 Chronic Spondylosis; intervertebral disc disorders; [...] Test Name Value Interpretation Reference Range Facility Documentationon 11-21-2024 Documentation [id number] Jose Guevara 1945 [facility] Provider Department Center 11/21/2024 MELYSSA LEON [facility] [place] [facility] Family History Problem Relation Age of Onset Stroke Father Family Status - Relation Status Age at Father Reason for Visit and Comments: Congestive Heart Failure [127] Normal [facility] Orders Onlyon 11-17-2024 Orders Only [id number] Jose Guevara 1945 Date Provider Department Center 11/17/2024 AGUEDA STARKEY [facility] [place] [facility] Family History Problem Relation Age of Onset Stroke Father Family Status - Relation Status Age at Father Normal [facility] Office Visiton 12-26-2023 Follow-up visit [id number] Jose Guevara 1945 Date Provider Department Center 12/26/2023 Arsalan-CASSANDRA [facility] Family History Problem Relation Age of Onset Stroke Father Family Status - Relation Status Age at Father Level of Service:53173 [facility] OFFICE/OUTPATIENT ESTABLISHED LOW MDM 20 MIN Normal [facility] PROF CHEM 8 (BAS METB)on Anion gap [Moles/Vol] 9.4 mmol/L Normal [facility] Comment on above: Performed By: #### B MP #### [facility] [address] [address] [address] Javy Brian Calcium [Mass/Vol] 9.7 mg/dL Normal 8.5-10.1 [facility] Comment on above: Performed By: #### B MP #### [facility] [address] [address] [address] Javy Brian Chloride [Moles/Vol] 106 mmol/L Normal 98-107 [facility] Comment on above: Performed By: #### B MP #### [facility] [address] [place] [address] Dr. Javy Brian CO2 [Moles/Vol] 30.4 mmol/L Normal 21.0-32.0 [facility] Comment on above: Performed By: #### B MP #### [facility] [address] [place] [address] Dr. Javy Brian Creatinine [Mass/Vol] 1.46 mg/dL Critically high 0.70-1.30 [facility] Comment on above: Performed By: #### B MP #### [facility] [address] [place] [address] Dr. Javy Brian EGFR-AF ROMANIAN 57 mL/min/1.73m2 Critically low >=60 [facility] Comment on above: Performed By: #### B MP #### [facility] [address] [place] [address] Dr. Javy Brian EGFR-NON AF ROMANIAN 47 mL/min/1.73m2 Critically low >=60 [facility] Comment on above: Performed By: #### B MP #### [facility] [address] [place] [address] Dr. Javy Brian Glucose [Mass/Vol] 99 mg/dL Normal 74-106 [facility] Comment on above: Performed By: #### B MP #### [facility] [address] [address] [address] Javy Brian Potassium [Moles/Vol] 4.8 mmol/L Normal 3.5-5.1 [facility] Comment on above: Performed By: #### B MP #### [facility] [address] [place] [address] Dr. Javy Brian Sodium [Moles/Vol] 141 mmol/L Normal 136-145 [facility] Comment on above: Performed By: #### B MP #### [facility] [address] [place] [address] Dr. Javy Brian Urea nitrogen [Mass/Vol] 23.0 mg/dL Critically high 7.0-18.0 [facility] Comment on above: Performed By: #### B MP #### [facility] [address] [place] [address] Dr. Javy Brian Urea nitrogen/Creatinin e [Mass ratio] 15.8 mg/mg Normal [facility] Comment on above: Performed By: #### B MP #### [facility] [address] [place] [address] Dr. Javy Brian PROF CHEM 8 (BAS METB)on Anion gap [Moles/Vol] 10.7 mmol/L Normal [facility] Comment on above: Performed By: #### B MP #### [facility] [address] [place] [address] Dr. Javy Brian Calcium [Mass/Vol] 9.7 mg/dL Normal 8.5-10.1 [facility] Comment on above: Performed By: #### B MP #### [facility] [address] [place] [address] Dr. Javy Brian Chloride [Moles/Vol] 106 mmol/L Normal 98-107 [facility] Comment on above: Performed By: #### B MP #### [facility] [address] [place] [address] Dr. Javy Brian CO2 [Moles/Vol] 29.5 mmol/L Normal 21.0-32.0 [facility] Comment on above: Performed By: #### B MP #### [facility] [address] [place] [address] Dr. Javy Brian Creatinine [Mass/Vol] 1.79 mg/dL Critically high 0.70-1.30 [facility] Comment on above: Performed By: #### B MP #### [facility] [address] [address] [address] Javy Brian EGFR-AF ROMANIAN 45 mL/min/1.73m2 Critically low >=60 [facility] Comment on above: Performed By: #### B MP #### [facility] [address] [address] [address] Javy Brian EGFR-NON AF ROMANIAN 37 mL/min/1.73m2 Critically low >=60 [facility] Comment on above: Performed By: #### B MP #### [facility] [address] [place] [address] Dr. Javy Brian Glucose [Mass/Vol] 94 mg/dL Normal 74-106 [facility] Comment on above: Performed By: #### B MP #### [facility] [address] [address] [address] Javy Brian Potassium [Moles/Vol] 5.2 mmol/L Critically high 3.5-5.1 [facility] Comment on above: Performed By: #### B MP #### [facility] [address] [place] [address] Dr. Javy Brian Sodium [Moles/Vol] 141 mmol/L Normal 136-145 [facility] Comment on above: Performed By: #### B MP #### [facility] [address] [address] [address] Javy Brian Urea nitrogen [Mass/Vol] 34.0 mg/dL Critically high 7.0-18.0 [facility] Comment on above: Performed By: #### B MP #### [facility] [address] [address] [address] Javy Brian Urea nitrogen/Creatinin e [Mass ratio] 19.0 mg/mg Normal [facility] Comment on above: Performed By: #### B MP #### [facility] [address] [place] [address] Dr. Javy Brian PROF CHEM 8 (BAS METB)on Anion gap [Moles/Vol] 12.0 mmol/L Normal [facility] Comment on above: Performed By: #### B MP #### [facility] [address] [address] [address] Javy Brian Calcium [Mass/Vol] 8.9 mg/dL Normal 8.5-10.1 [facility] Comment on above: Performed By: #### B MP #### [facility] [address] [address] [address] Javy Brian Chloride [Moles/Vol] 109 mmol/L Critically high 98-107 [facility] Comment on above: Performed By: #### B MP #### [facility] [address] [place] [address] Dr. Javy Brian CO2 [Moles/Vol] 29.0 mmol/L Normal 22.0-30.0 [facility] Comment on above: Performed By: #### B MP #### [facility] [address] [place] [address] Dr. Javy Brian Creatinine [Mass/Vol] 1.79 mg/dL Critically high 0.66-1.25 [facility] Comment on above: Performed By: #### B MP #### [facility] [address] [place] [address] Dr. Javy Brian EGFR-AF ROMANIAN 45 mL/min/1.73m2 Critically low >=60 [facility] Comment on above: Performed By: #### B MP #### [facility] [address] [place] [address] Dr. Javy Brian EGFR-NON AF ROMANIAN 37 mL/min/1.73m2 Critically low >=60 [facility] Comment on above: Performed By: #### B MP #### [facility] [address] [place] [address] Dr. Javy Brian Glucose [Mass/Vol] 92 mg/dL Normal 74-106 [facility] Comment on above: Performed By: #### B MP #### [facility] [address] [address] [address] Javy Brian Potassium [Moles/Vol] 5.0 mmol/L Normal 3.4-5.0 [facility] Comment on above: Performed By: #### B MP #### [facility] [address] [place] [address] Dr. Javy Brian Sodium [Moles/Vol] 145 mmol/L Normal 137-145 [facility] Comment on above: Performed By: #### B MP #### [facility] [address] [place] [address] Dr. Javy Brian Urea nitrogen [Mass/Vol] 35.0 mg/dL Critically high 7.0-18.0 [facility] Comment on above: Performed By: #### B MP #### [facility] [address] [place] [address] Dr. Javy Brian Urea nitrogen/Creatinin e [Mass ratio] 19.6 mg/mg Normal [facility] Comment on above: Performed By: #### B MP #### [facility] [address] [place] [address] Dr. Javy Brian CBC AUTO DIFFon 11-04-2021 BASO # 0.0 103/ul Normal 0.0-0.1 [facility] Comment on above: Performed By: #### C BC #### [facility] [address] [place] [address] Dr. Javy Brian Basophils/100 WBC (Bld) 0.7 % Normal 0.2-2.0 [facility] Comment on above: Performed By: #### C BC #### [facility] [address] [place] [address] Dr. Javy Brian EO # 0.2 103/ul Normal 0.0-0.7 [facility] Comment on above: Performed By: #### C BC #### [facility] [address] [place] [address] Dr. Javy Brian Eosinophils/100 WBC (Bld) 3.1 % Normal 0.9-7.0 [facility] Comment on above: Performed By: #### C BC #### [facility] [address] [place] [address] Dr. Javy Brian Erythrocyte distribution width (RBC) [Ratio] 14.3 % Normal 11.0-15.0 [facility] Comment on above: Performed By: #### C BC #### [facility] [address] [place] [address] Dr. Javy Brian Hematocrit (Bld) [Volume fraction] 43.5 % Normal 42.0-54.0 [facility] Comment on above: Performed By: #### C BC #### [facility] [address] [place] [address] Dr. Javy Brian Hemoglobin (Bld) [Mass/Vol] 13.7 g/dL Critically low 14.0-18.0 [facility] Comment on above: Performed By: #### C BC #### [facility] [address] [place] [address] Dr. Javy Brian IG # 0.01 10e3/ul Normal 0.00-0.03 [facility] Comment on above: Performed By: #### C BC #### [facility] [address] [place] [address] Dr. Javy Brian IG % 0.2 % Normal 0.0-0.5 [facility] Comment on above: Performed By: #### C BC #### [facility] [address] [place] [address] Dr. Javy Brian LYMPH # 1.4 103/ul Normal 1.2-3.8 [facility] Comment on above: Performed By: #### C BC #### [facility] [address] [place] [address] Dr. Javy Brian Lymphocytes/100 WBC (Bld) 23.6 % Normal 20.5-60.0 [facility] Comment on above: Performed By: #### C BC #### [facility] [address] [place] [address] Dr. Javy Brian MANUAL DIFF REQ NO Normal [facility] Comment on above: Performed By: #### C BC #### [facility] [address] [place] [address] Dr. Javy Brian MCH (RBC) [Entitic mass] 29.0 pg Normal 25.9-34.0 [facility] Comment on above: Performed By: #### C BC #### [facility] [address] [address] [address] Javy Brian MCHC (RBC) [Mass/Vol] 31.5 g/dL Normal 29.9-35.2 [facility] Comment on above: Performed By: #### C BC #### [facility] [address] [address] [address] Javy Brian MCV (RBC) [Entitic vol] 92.0 fL Normal 80.0-94.0 [facility] Comment on above: Performed By: #### C BC #### [facility] [address] [address] [address] Javy Brian MONO # 0.8 103/ul Normal 0.3-0.8 [facility] Comment on above: Performed By: #### C BC #### [facility] [address] [place] [address] Dr. Javy Brian Monocytes/100 WBC (Bld) 14.1 % Critically high 1.7-12.0 [facility] Comment on above: Performed By: #### C BC #### [facility] [address] [place] [address] Dr. Javy Brian NEUT # 3.4 103/ul Normal 1.4-6.5 [facility] Comment on above: Performed By: #### C BC #### [facility] [address] [place] [address] Dr. Javy Brian Neutrophils/100 WBC (Bld) 58.3 % Normal 43.0-75.0 [facility] Comment on above: Performed By: #### C BC #### [facility] [address] [address] [address] Javy Brian Platelet mean volume (Bld) [Entitic vol] 9.7 fL Normal 9.5-13.5 [facility] Comment on above: Performed By: #### C BC #### [facility] [address] [address] [address] Javy Brian PLT 113 103/ul Critically low 150-450 [facility] Comment on above: Performed By: #### C BC #### [facility] [address] [place] [address] Dr. Javy Brian RBC 4.73 106/ul Normal 4.70-6.10 [facility] Comment on above: Performed By: #### C BC #### [facility] [address] [place] [address] Dr. Javy Brian WBC 5.8 103/ul Normal 4.0-11.0 [facility] Comment on above: Performed By: #### C BC #### [facility] [address] [place] [address] Dr. Javy Brian PROF CHEM 8 (BAS METB)on Anion gap [Moles/Vol] 13.2 mmol/L Normal [facility] Comment on above: Performed By: #### B MP #### [facility] [address] [place] [address] Dr. Javy Brian Calcium [Mass/Vol] 9.1 mg/dL Normal 8.5-10.1 [facility] Comment on above: Performed By: #### B MP #### [facility] [address] [place] [address] Dr. Javy Brian Chloride [Moles/Vol] 110 mmol/L Critically high 98-107 [facility] Comment on above: Performed By: #### B MP #### [facility] [address] [place] [address] Dr. Javy Brian CO2 [Moles/Vol] 27.6 mmol/L Normal 22.0-30.0 [facility] Comment on above: Performed By: #### B MP #### [facility] [address] [place] [address] Dr. Javy Brian Creatinine [Mass/Vol] 1.61 mg/dL Critically high 0.66-1.25 [facility] Comment on above: Performed By: #### B MP #### [facility] [address] [place] [address] Dr. Javy Brian EGFR-AF ROMANIAN 51 mL/min/1.73m2 Critically low >=60 [facility] Comment on above: Performed By: #### B MP #### [facility] [address] [address] [address] Javy Brian EGFR-NON AF ROMANIAN 42 mL/min/1.73m2 Critically low >=60 [facility] Comment on above: Performed By: #### B MP #### [facility] [address] [address] [address] Javy Brian Glucose [Mass/Vol] 94 mg/dL Normal 74-106 [facility] Comment on above: Performed By: #### B MP #### [facility] [address] [address] [address] Javy Brian Potassium [Moles/Vol] 5.8 mmol/L Critically high 3.4-5.0 [facility] Comment on above: Performed By: #### B MP #### [facility] [address] [address] [address] Javy Brian Sodium [Moles/Vol] 145 mmol/L Normal 137-145 [facility] Comment on above: Performed By: #### B MP #### [facility] [address] [address] [address] Javy Brian Urea nitrogen [Mass/Vol] 27.0 mg/dL Critically high 7.0-18.0 [facility] Comment on above: Performed By: #### B MP #### [facility] [address] [address] [address] Javy Brian Urea nitrogen/Creatinin e [Mass ratio] 16.8 mg/mg Normal [facility] Comment on above: Performed By: #### B MP #### [facility] [address] [address] [address] Javy Brian Ambulatory Visit Summaryon 0 10-04-2021 Ambulatory Visit Summary INDIO GUEVARA :1945 Visit Date:10/04/2021 Ambulatory Visit Instructions Your Diagnosis BPH with urinary obstruction Personal history of kidney stones Tests Performed Urnls Dip Stick Auto w/o Microscopy POC 38258 Your Care Team Attending Physician - Félix Carter MD, Randall Espino Primary Care Physician - REN MARCIAL JR, DO This Is Your Medications List Contact prescribing physician if questions or concerns acetaminophen-hydrocodone ([place] 325 mg-5 mg oral tablet) allopurinol (allopurinol [...] MD, Randall Espino Where: [facility] Patient Educationon 10-05-19 Patient Education [...] Follow these instructions at home: ? Take nlcv-sxj-nlclikm and prescription medicines only as told by [...] You d (more content not included)... Normal [facility] Urology Office/Clinic Noteon 10-04-2021 Urology Office/Clinic Note Chief Complaint Follow up to PSA and KUB This patient is a 76-year-old male with a history of renal calculi and prostatic hyperplasia. He is here today for follow-up visit. He has a recent PSA for review. [facility] Staff [place] is a 2 month follow [...] Urnls Dip Stick Auto w/o Microscopy POC 41160 2. Personal history of kidney stones (Z87.442: Personal history of urinary calculi) s/p ESWL in 2016, no KUB done for today S/P Scrotal exploration done 01/09/18 Ordered: PSA Total Follow-up With When Contact Information Félix Carter MD, Randall Espino, URO Within 1 year Additional Instructions: w/psa Patient Education Benign Prostatic Hyperplasia Shakira James personally scribed for Dr. Heard on 10/04/2021 11:49:15. . Documentation recorded by the scribeShakira, accurately reflects the services(s) I performed and [...] Tab, 12.5 (more content not included)... Normal [facility] Comment on above: Result Comment: Elec tronically Signed By: Félix Carter MD, Randall Espino\.br\Date and Time Signed: 10/04/21 11:52 EST\.br\Electronically Co-Signed By: Shakira Emery MA\.br\Date and Time Co-Signed: 10/04/21 11:49 EST Lab Reportson 10-03-2021 Lab Reports [id number]:[id number] Normal [facility] Fluoro For Surgical Procedur esOrdered By: Enrique Mayers on 08-08-2019 Impression: Fluorosc opic time 383.0 seconds. Spinal stimulating leads with leads at indeterminate spinal level. If there is clinical concern for desired level location, radiographs lumbar/thoracic spine recommended. [employer] Phone: Patient 1 : 1945 Age: 74 years Gender: Male Order Date: 08/07/2019 2:09 PM. Exam: FLUORO FOR SURGICAL PROCEDURES Number of Views: 2 Indication: Pain Comparison: None Findings: Spinal stimulating leads are noted with leads at indeterminate spinal level. Postoperative changes lower lumbar spine. [employer] Phone: [facility], [facility] Incoming R adiant Results From [employer] - 08/08/2019 8:50 AM EST Patient : [...] desired level location, radiographs lumbar/thoracic spine recommended. [employer] Phone: FLUORO FOR SURGICAL PROCEDUR ESon 08-07-2019 [...] Simon Somers MD 08/08/19 Final result Normal [facility] APTTOrdered By: Tone duron on 07-08-2019 aPTT Coag (Bld) [Time] 33.3 s [employer] Phone: Comment on above: Effective 02/13/2019: Please note methodology and/or reference ranges have changed. aPTT - Heparin Therapeutic Range: 74.0 - 106 seconds BASIC METABOLIC PANELOrdered By: Tone Redd on 07-08-2019 Anion gap [Moles/Vol] 13 mmol/L [employer] Phone: Calcium [Mass/Vol] 9.6 mg/dL 8.5 - 9.9 mg/dL [employer] Phone: Chloride [Moles/Vol] 107 mmol/L [employer] Phone: CO2 [Moles/Vol] 22 mmol/L [employer] Phone: Creatinine [Mass/Vol] 1.02 mg/dL 0.7 - 1.2 mg/dL [employer] Phone: GFR >60.0 >60 [employer] Phone: Comment on above: >60 mL/min/1.73m2 EG FR, calc. for ages 18 and older using the MDRD formula (not corrected for weight), is valid for stable renal function. GFR Non- >60.0 >60 [employer] Phone: Comment on above: >60 mL/min/1.73m2 EG FR, calc. for ages 18 and older using the MDRD formula (not corrected for weight), is valid for stable renal function. Glucose [Mass/Vol] 98 mg/dL 70 - 99 mg/dL [employer] Phone: Potassium [Moles/Vol] 4.5 mmol/L [employer] Phone: Sodium [Moles/Vol] 142 mmol/L [employer] Phone: Urea nitrogen [Mass/Vol] 21 mg/dL 8 - 23 mg/dL [employer] Phone: Basic Metabolic Panelon 12-1 0-2019 Anion gap [Moles/Vol] 13 mmol/L Normal 9-15 [facility] Comment on above: Performed By: #### B MP #### [facility] [address] [place] [address] Calcium [Mass/Vol] 9.6 mg/dL Normal 8.5-9.9 [facility] Comment on above: Performed By: #### B MP #### [facility] [address] [place] [address] Chloride [Moles/Vol] 107 mmol/L Normal 95-107 [facility] Comment on above: Performed By: #### B MP #### [facility] [address] [place] [address] CO2 [Moles/Vol] 22 mmol/L Normal 20-31 [facility] Comment on above: Performed By: #### B MP #### [facility] [address] [place] [address] Creatinine [Mass/Vol] 1.02 mg/dL Normal 0.70-1.20 [facility] Comment on above: Performed By: #### B MP #### [facility] [address] [place] [address] GFR/1.73 sq M predicted among blacks MDRD (S/P/Bld) [Vol rate/Area] mL/min/{1.73_m2} Normal >60 [facility] Comment on above: Result Comment: >60 mL/min/1.73m2 EGFR, calc. for ages 18 and older using the MDRD formula (not corrected for weight), is valid for stable renal function. Performed By: #### B MP #### [facility] [address] [place] [address] GFR/1.73 sq M.predicted MDRD (S/P/Bld) [Vol rate/Area] mL/min/{1.73_m2} Normal >60 [facility] Comment on above: Result Comment: >60 mL/min/1.73m2 EGFR, calc. for ages 18 and older using the MDRD formula (not corrected for weight), is valid for stable renal function. Performed By: #### B MP #### [facility] [address] [place] [address] Glucose [Mass/Vol] 98 mg/dL Normal 70-99 [facility] Comment on above: Performed By: #### B MP #### [facility] [address] [place] [address] Potassium [Moles/Vol] 4.5 mmol/L Normal 3.4-4.9 [facility] Comment on above: Performed By: #### B MP #### [facility] [address] [place] [address] Sodium [Moles/Vol] 142 mmol/L Normal 135-144 [facility] Comment on above: Performed By: #### B MP #### [facility] [address] [place] [address] Urea nitrogen [Mass/Vol] 21 mg/dL Normal 8-23 [facility] Comment on above: Performed By: #### B MP #### [facility] [address] [place] [address] CBCOrdered By: Tone bo on 07-08-2019 Erythrocyte distribution width (RBC) [Ratio] 14.0 % 11.5 - 14.5 % [employer] Phone: Hematocrit (Bld) [Volume fraction] 42.1 % 42 - 52 % [employer] Phone: Hemoglobin (Bld) [Mass/Vol] 14.1 g/dL 14 - 18 g/dL [employer] Phone: MCH (RBC) [Entitic mass] 29.9 pg 27 - 31.3 pg [employer] Phone: MCHC 33.6 % 33 - 37 % [employer] Phone: MCV (RBC) [Entitic vol] 89.0 fL 80 - 100 fL [employer] Phone: Platelets (Bld) [#/Vol] 140 10*3/uL 130 - 400 K/uL [employer] Phone: RBC (Bld) [#/Vol] 4.73 10*6/uL [employer] Phone: WBC (Bld) [#/Vol] 5.7 10*3/uL 4.8 - 10.8 K/uL [employer] Phone: CBC With Platelet No Differe ntialon 07-08-2019 Erythrocyte distribution width (RBC) [Ratio] 14.0 % Normal 11.5-14.5 [facility] Comment on above: Performed By: #### C BCND #### [facility] [address] [place] [address] Hematocrit (Bld) [Volume fraction] 42.1 % Normal 42.0-52.0 [facility] Comment on above: Performed By: #### C BCND #### [facility] [address] [place] [address] Hemoglobin (Bld) [Mass/Vol] 14.1 g/dL Normal 14.0-18.0 [facility] Comment on above: Performed By: #### C BCND #### [facility] [address] [place] [address] MCH (RBC) [Entitic mass] 29.9 pg Normal 27.0-31.3 [facility] Comment on above: Performed By: #### C BCND #### [facility] [address] [place] [address] MCHC (RBC) [Mass/Vol] 33.6 % Normal 33.0-37.0 [facility] Comment on above: Performed By: #### C BCND #### [facility] [address] [place] [address] MCV (RBC) [Entitic vol] 89.0 fL Normal 80.0-100.0 [facility] Comment on above: Performed By: #### C BCND #### [facility] [address] [place] [address] Platelets (Bld) [#/Vol] 140 10*3/uL Normal 130-400 [facility] Comment on above: Performed By: #### C BCND #### [facility] [address] [place] [address] RBC (Bld) [#/Vol] 4.73 10*6/uL Normal 4.70-6.10 [facility] Comment on above: Performed By: #### C BCND #### [facility] [address] [place] [address] WBC (Bld) [#/Vol] 5.7 10*3/uL Normal 4.8-10.8 [facility] Comment on above: Performed By: #### C BCND #### [facility] [address] [place] [address] FLUORO FOR SURGICAL PROCEDUR ESon 07-08-2019 FLUORO [...] Simon Somers MD 07/09/19 Final result Normal [facility] PROTIME-INROrdered By: Carlos Redd on 07-08-2019 INR Coag (PPP) [Relative time] 1.1 {INR} [facility] Phone: Comment on above: Warfarin Therapy INR Therapeutic: 2.0-3.0 With Mechanical Valve: >2.5 Low-intensity Therapeutic Range: 1.5-2.0 Mod-intensity Therapeutic Range: 2.0-3.0 High-intensity Therapeutic Range: 2.5-3.5 HIgh-intensity Therapeutic Range: 3.0-4.0 Common Critical/Alarm Value: 5.0 Common Upper Limit Reported: 10.0 Effective 02/06/2019: Please note methodology and/or reference ranges have changed. PT Coag (PPP) [Time] 14.1 s [facility] Phone: Comment on above: Effective 02/06/19 Please note methodology and/or reference ranges have changed. Partial Thromboplastin Timeo n 07-08-2019 aPTT Coag (Bld) [Time] 33.3 s Normal 24.4-36.8 [facility] Comment on above: Result Comment: Effe ctive 02/13/2019: Please note methodology and/or reference ranges have changed. aPTT - Heparin Therapeutic Range: 74.0 - 106 seconds Performed By: #### P TT #### [facility] [address] [place] [address] Prothrombin Timeon 9 INR Coag (PPP) [Relative time] 1.1 {INR} Normal [facility] Comment on above: Result Comment: Warf jessika Therapy INR Therapeutic: 2.0-3.0 With Mechanical Valve: >2.5 Low-intensity Therapeutic Range: 1.5-2.0 Mod-intensity Therapeutic Range: 2.0-3.0 High-intensity Therapeutic Range: 2.5-3.5 HIgh-intensity Therapeutic Range: 3.0-4.0 Common Critical/Alarm Value: 5.0 Common Upper Limit Reported: 10.0 Effective 02/06/2019: Please note methodology and/or reference ranges have changed. Performed By: #### P T #### [facility] [address] [place] [address] PT Coag (PPP) [Time] 14.1 s Normal 12.3-14.9 [facility] Comment on above: Result Comment: Effe ctive 02/06/19 Please note methodology and/or reference ranges have changed. Performed By: #### P T #### [facility] [address] [place] [address] CHEST AND LATERALon 02-07-20 18 [facility] [place] [id number] Patient Name: INDIO GUEVARA : 1945Sex: MAge: Race: WhiteMRN: [id number]. Location: OUTPPatient Status: DVisit #: [id number] Date: 02/06/2018 7:00:00 AMCompleted Date: 02/06/2018 09:23 AMRequesting Provider: TOWHEED, AROOGE Attending Provider: SAM GREER Report Copy To: Signs & Symptoms: Post Pacemaker/AICD PlacementHistory: Patient history not availableComments: Check Pacemaker/AICD Lead Position, Chest X-ray PA \EANDE\ LAT in Dept ;DO NOT lift affected arm above shoulder. S/P pacemaker/ICD implant. Verify lead placementExam: CHEST AND LATERALAccession #: [id number] CHEST AND LATERAL 02/06/2018 9:23 AM EDT [...] atelectasis Electronically signed by:Florence Vinson. Transcribed by: [email or web address], User Resident: Electronically Signed by: FLORENCE VINSON @ 02/06/2018 02:44 PM Normal [facility] Comment on above: Order Comment: Check Pacemaker/AICD Lead Position, Chest X-ray PA \EANDE\ LAT in Dept ;DO NOT lift affected arm above shoulder. S/P pacemaker/ICD implant. Verify lead placement Cardiovascular Lab Reporton 02-06-2018 Cardiovascular Lab Report [facility] Patient Name: Indio Guevara [facility] MR #: [id number] Physician: Sam Groves of St[facility] GreerMedicine Service Date: 02/05/2018Division of Birthdate: 6Cardiology Room #: 3CD [id number] CardiovascularServicesUniversit y [address]ukmdc[address], [place] [address]Bgmhz Fax Cardiovascular Laboratory ReportINDICATION: Mr. Indio Guevara is a 72-year-old gentleman, who I saw inthe [place] office. He sees Dr. Long. He was referred for a CRTDprocedure. He has ejection fraction of 20% to 25%, chronic low ejectionfraction as well, he has a left bundle-branch block with a QRS duration ofapproximately 170 milliseconds.I saw him in the [place] office, went over the procedure, risks andbenefits [...] tethered with 0 silk.At that point, a 10-Russian docking station was placed.A long sheath with [...] minutes of fluoroscopy. The device was a [id number], serial number [id number]. The atrial lead is a Medtronic [id number]. The ventricular lead is a Medtronic 6935 [id number]. The leftventricular lead is a Medtronic [id number], serial number [id number].Sensed P and R waves were 3.5 mV with the P waves 7 mV, the R-wave in theRV and 9.4, the LV impedance 627 ohms in the atrium 642, in the [id number] in the coronary sinus. Pacing threshold at [...] 02/05/2018/01:25 P/Sam Greer M.D.Date Trans: 02/06/2018 06:47 [id number]: Ren Marcial D.O. [address] [facility] [place] [address] [facility] Vital Signs Date Time Vital Sign Value Performing Clinician Faci lity 08-07-2019 16:25-0500 Diastolic blood pressure 78 mm[Hg] Enrique Mayers MD Work Phone: [employer] Work Phone: 08-07-2019 16:25-0500 Heart rate 78 /min Enrique Mayers MD Work Phone: [employer] Work Phone: 08-07-2019 16:25-0500 Respiratory rate 20 /min Enrique Mayers MD Work Phone: [employer] Work Phone: 08-07-2019 16:25-0500 SaO2% (BldA) [Mass fraction] 95 % Enrique Mayers MD Work Phone: [employer] Work Phone: 08-07-2019 16:25-0500 Systolic blood pressure 148 mm[Hg] Enrique Mayers MD Work Phone: [employer] Work Phone: 08-07-2019 10:51-0500 Body height 184.2 cm Enrique Mayers MD Work Phone: [employer] Work Phone: 08-07-2019 10:51-0500 Body mass index (BMI) [Ratio] 34.78 kg/m2 Enrique Mayers MD Work Phone: [employer] Work Phone: 08-07-2019 10:51-0500 Body temperature 97.59 [degF] Enrique Mayers MD Work Phone: [employer] Work Phone: 08-07-2019 10:51-0500 Body weight 117.94 kg Enrique Mayers MD Work Phone: [employer] Work Phone: 07-08-2019 15:25-0500 Body temperature 98.01 [degF] Enrique Mayers MD Work Phone: [employer] Work Phone: 07-08-2019 15:25-0500 Diastolic blood pressure 94 mm[Hg] Enrique Mayers MD Work Phone: [employer] Work Phone: 07-08-2019 15:25-0500 Heart rate 78 /min Enrique Mayers MD Work Phone: [employer] Work Phone: 07-08-2019 15:25-0500 Respiratory rate 16 /min Enrique Mayers MD Work Phone: [employer] Work Phone: 07-08-2019 15:25-0500 SaO2% (BldA) [Mass fraction] 97 % Enrique Mayers MD Work Phone: [employer] Work Phone: 07-08-2019 15:25-0500 Systolic blood pressure 158 mm[Hg] Enrique Mayers MD Work Phone: [employer] Work Phone: 07-08-2019 11:45-0500 Body height 182.9 cm Enrique Mayers MD Work Phone: [employer] Work Phone: 07-08-2019 11:45-0500 Body mass index (BMI) [Ratio] 35.26 kg/m2 Enrique Mayers MD Work Phone: [employer] Work Phone: 07-08-2019 11:45-0500 Body weight 117.94 kg Enrique Mayers MD Work Phone: [employer] Work Phone: Encounters Encounter Date Encounter Type Care Provider Facility Start: 12-09-2024 End: 12-09-2024 ambulatory [facility] Start: 11-20-2024 ambulatory [facility] Start: 10-28-2024 ambulatory [facility] Start: 10-21-2024 ambulatory [facility] Start: 09-17-2024 ambulatory [facility] Start: 08-19-2024 ambulatory [facility] Start: 07-31-2024 ambulatory [facility] Start: 07-25-2024 ambulatory [facility] Start: 07-08-2024 End: 07-08-2024 ambulatory [facility] Start: 07-04-2024 ambulatory [facility] Start: 06-23-2024 ambulatory [facility] Start: 06-11-2024 ambulatory [facility] Start: 05-16-2024 ambulatory [facility] Start: 05-08-2024 ambulatory [facility] Start: 03-03-2024 ambulatory [facility] Start: 01-25-2024 ambulatory [facility] Start: 01-14-2024 ambulatory [facility] Start: 01-07-2024 ambulatory [facility] Start: 01-02-2024 ambulatory [facility] Start: 01-02-2024 Encounter for preprocedural cardiovascular examination [facility] Start: 12-26-2023 End: 12-26-2023 [facility]: 01-22-2023 ambulatory Nino Hughes ty:JONELLE Conley Start: 07-25-2022 End: 07-26-2022 ambulatory CRISSY KIMMIEMAGDA Facility:[facility] Start: 07-13-2022 End: 07-14-[address] CASSANDRA LONG Facility:[facility] Start: 11-11-[address] CASSANDRA LONG Fac ility:[facility] Start: 11-08-2021 End: 11-09-[address] CASSANDRA LONG Facility:[facility] Start: 11-04-2021 End: 11-05-[address] CASSANDRA LONG Facility:[facility] Start: 10-04-2021 ambulatory Nino BAE Facility :[facility] Start: 10-04-2021 End: 10-05-2021 ambulatory Nino BAE Facility:[facility] [place] Start: 09-30-2021 End: 10-01-[address] RANDALL HEARD JR Facility:[facility] Start: 08-07-2019 End: 08-07-2019 Patient encounter procedure [facility] Start: 08-07-2019 End: 08-07-2019 Subsequent hospital visit by physician Enrique Mayers MD Work Phone: [facility] Comment on above: Post-op pain (Primar y Dx) Start: 08-07-2019 End: 08-10-2019 Patient encounter procedure [facility] Start: 08-07-2019 End: 08-09-2019 Subsequent hospital visit by physician Enrique Mayers MD Work Phone: [facility] Comment on above: Pain Start: 07-08-2019 End: 07-08-2019 Patient encounter procedure [facility] Start: 07-08-2019 End: 07-08-2019 Subsequent hospital visit by physician Enrique Mayers MD Work Phone: [facility] Start: 07-08-2019 End: 07-11-2019 Patient encounter procedure [facility] Start: 02-05-2018 End: 02-06-2018 Patient encounter SAM GREER Facility:[facility] Start: 01-11-2018 End: 01-12-2018 Patient encounter PROVIDER UNKNOWN Facility:[facility] Start: 01-10-2018 End: 01-11-2018 Patient encounter DEFAULT PHYSICIAN Facility:[facility] Procedures Date Procedure Procedure Detail Performing Clinician Start: 09-30-[address] CASSANDRA LONG Comment on above: Performed By: #### P SAD #### [facility] [address] [place] [address] Dr. Javy Brian Start: 08-07-2019 INCENTIVE SPIROMETRY [...] Start: 08-07-2019 PULSE OXIMETRY SPOT CHECK ENRIQUE YNACY Start: 08-07-2019 VITAL SIGNS ENRIQUE YANCY Start: [...] 08/22/2019 Office Visit Neurosurgery Enrique Mayers MD [address], [address] [address] [employer] Start: 07-11-2019 End: 07-11-2019 Patient encounter procedure 07/11/2019 Office Visit Neurosurgery Enrique Mayers MD [address], [address] [address] [employer] Start: 03-30-2019 Influenza vaccination Flu vaccine (# 1) [employer] Phone: Start: 01-19-2019 Annual Wellness Visi t (AWV) Annual Wellness Visit (AWV) [employer] Phone: Start: 2011 Pneumococcal 65+ yea rs Vaccine (1 of 1 - PPSV23) Pneumococcal 65+ years Vaccine (1 of 1 - PPSV23) [employer] Phone: Start: 02-28-1996 Colon cancer screen colonoscopy Colon cancer screen colonoscopy [employer] Phone: Start: 02-28-1996 Shingles Vaccine (1 of 2) Lester gles Vaccine (1 of 2) [employer] Phone: Start: 1986 Lipid screen Lipid screen [employer] [facility] Work Phone: Start: 1957 DTaP/Tdap/Td vaccine (1 - Tdap) DTaP/Tdap/Td vaccine (1 - Tdap) [employer] Phone: Start: 1945 Hepatitis C screen Hepatitis C anderson bo [employer] Phone: EKG 12 Lead EKG 12 Lead ECG Routine 07/08/2019 12:00 PM EST [employer] Work Phone: Incentive spirometry [employer] Work Phone: Comment on above: Every 2hr while awak e until discontinued starting 07/08/2019 Every 2hr while awak e until discontinued starting 08/07/2019 Initiate Oxygen Ther apy Protocol [employer] Phone: Comment on above: Daily until disconti nued starting 07/08/2019 Daily until disconti nued starting 08/07/2019 Phase I & II - meter ed glucose [employer] Phone: Comment on above: As Needed until disc ontinued starting 07/08/2019 As Needed until disc ontinued starting 08/07/2019 End: 07-08-2019 Pulse Oximetry Spot Check Pulse Oximetry Spot Check Respiratory Care Routine One Time for 1 Occurrences starting 07/08/2019 until 07/08/2019 [employer] Phone: Comment on above: One Time for 1 Occur rences starting 07/08/2019 until 07/08/2019 End: 08-07-2019 Pulse Oximetry Spot Check Pulse Oximetry Spot Check Respiratory Care Routine One Time for 1 Occurrences starting 08/07/2019 until 08/07/2019 [employer] Phone: Comment on above: One Time for 1 Occur rences starting 08/07/2019 until 08/07/2019 Payers Date Payer Category Payer Medicare MEDICARE MEDICAR E PART A AND B xxxxxxxxxxx 2017-Present [phone] [place] [address] xxxxxxxxxxx [id number] 2017 Unknown [employer] M [employer]UAL [address] xxxxxxxxxxxx 2017-Present [phone] [address] [place] [address] xxxxxxxxxxxx [id number] 1959 Medicare [id number] 1959 Self-pay 1959 Unknown [id number] 1945 Unknown [id number] 1945 Unknown [id number] 1946 Unknown [id number] 1946 Unknown [id number] 1946 Unknown [id number] 1946 Unknown [id number] [id number] 1946 Unknown [id number] [id number] 1946 Unknown [id number] [id number] 1946 Unknown [id number] [id number] 1946 Unknown [id number] [id number] 1946 Unknown [id number] [id number] 1945 Unknown [id number] Medicare [id number] Unknown Social History Date Type Detail Facility Start: 07-07-2019 End: 08-08-2019 Tobacco smoking status NHIS Never smoker [employer] Phone: Start: 07-07-2019 End: 08-08-2019 Alcohol intake Current non-drinker of alcohol (finding) [employer] Phone: Sex Assigned At Not on file [employer] Phone: Medical Equipment Procedure Code Equipment Code Equipment Origin al Text Equipment Identifier Dates Lead Trial Compc t Perc 1x8 [id number] Start: 07-08-2019 Stimulator [employer] lis Adaptive Stim Mri - [id number] Start: 08-07-2019 Lead Pain 1x8 60 cm V[employer]ris [id number] Start: 08-07-2019 Lead Pain 1x8 60 cm [employer]ris [id number] Start: 08-07-2019 Progress note 11-21-2024 Note Date & Type Note Facility 11-21-2024 Note Copy of Med[employer] Op tiVol report 11/17/24 Margie Stack PA-C [facility] Cardiovascular Medicine [phone] [facility] Progress note 11-21-2024 Note Date & Type Note Facility 11-21-2024 Note Provider called pt a nd son today for concerns of worsening heart failure index noted on device interrogation. Pt states that he feels well, denied any water retention, leg edema, or weight gain. Denied worsening SOB or orthopnea. States he has actually lost about 20-30 pounds on purpose, and remains fairly active. Therefore, message sent to [place] cardiology staff, Dr Long and Dr Rey with update of pt status, device at 3 month battery life and to monitor for upcoming device exchange for battery. Pt voiced understanding of red flag symptoms to call cardiology for- increased SOB, Orthopnea, weight gain, fatigue, or water retention. Melyssa Do [facility] Cardiology Available 7a-3pm via [employer] Chat [phone] [facility] Progress note 12-26-2023 Note Date & Type Note Facility 12-26-2023 Note [facility] Subjective Indio Guevara is a [...] heart failure with cath in 2007 at [facility] showing no significant CAD when his EF was 30%. On a prior echocardiogram at [facility] there was reduced EF 30% and [...] LESS THAN 100*, (more content not included)... [facility] History of Present illness Narrative 08-07-2019 Alexandra Cody RN - 08/07/2019 4:19 PM EST Note Date & Type Note Facility 08-07-2019 History of Present illness Narrative disch inst and 2 presc given and explained to pt and son documented in this encounter [employer] Phone: Hospital Discharge instructions 08-07-2019 Instructions Note Date & Type Note Facility 08-07-2019 Hospital Discharg e instructions Alexandra Cody RN - 08/07/2019 Ice packs to the incision Shower on Sunday documented in this encounter [employer] Phone: History of Present illness Narrative 07-08-2019 [...] notified of above. documented in this encounter [employer] Phone: Hospital Discharge instructions 07-08-2019 Instructions Note Date & Type Note Facility 07-08-2019 Hospital Discharg e instructions Oralia Griffin RN - 07/08/2019 May shower and ambulate. Follow instructions of medtronic documented in this encounter [employer] Phone: Evaluation note Note Date & Type Note Facility Evaluation note Diagnosis Post-op pain- Primary Other acute postoperative pain documented in this encounter [employer] Phone: Evaluation note Note Date & Type Note Facility Evaluation note Diagnosis Pain Generalized pain documented in this encounter [employer] Phone: Summary Purpose Family History No Family History Records FoundNo Family History Records FoundNo Family History Records FoundNo Family History Records FoundNo Family History Records Found Advance Directives No Advanced Directives Records FoundDocuments on File Type Date Recorded Patient [employer] anation Advance Directives and Living Will Power of Detention Attendant Reason for Referral Status Reason Specialty Diagnoses / Procedures Referred By Contact Referred To Contact Pending Review Radiology Diagnoses Pain Procedures Fluoro For Surgical Procedures Enrique Mayers MD [address], [address] [place] [address] Additional Source Comments (unrecognized sect ion and content) No Status Records FoundNo Status Records FoundNo Status Records FoundNo Status Records FoundNo Status Records Found INFORMATION SOURCE (unrecogn ized section and content) DATE CREATED AUTHOR 02/12/2018 [facility] DATE CREATED AUTHOR AUTHOR'S ORGANIZ ATION 08/09/2019 [facility] DATE CREATED AUTHOR AUTHOR'S ORGANIZ ATION 07/28/[address] [facility] DATE CREATED AUTHOR AUTHOR'S ORGANIZ ATION 09/22/2022 Marte Miki [facility] DATE CREATED AUTHOR AUTHOR'S ORGANIZ ATION 12/10/2024 [facility] Reason for Visit (unrecogniz ed section and content) Status Reason Specialty Diagnoses / Procedures Referre d By Contact Referred To Contact Diagnoses RADICULOPATHY, STENOSIS, SPONDYLOSIS Procedures VA NJX DX/THER SBST INTRLMNR CRV/THRC W/IMG GDN D.C.S. (DORSAL COLUMN STIMULATOR) TRIAL 1 HOUR/ 1 C-ARM/ ZOE CASON [employer] (PAT SAME DAY OF SURGERY) Enrique Mayers MD [address], [address] [place] [address] [facility] Status Reason Specialty Diagnoses / Procedures Referre d By Contact Referred To Contact Diagnoses Cervical spondylosis with myelopathy and radiculopathy RADICULOPATHY SPONDYLOSIS Procedures VA IMPLANT NEUROSTIM/CABLE TELEVISION ACCESS COORDINATOR PERMANENT DCS (DORSAL COLUMN STIMULATOR)PLACEMENT, 1 HOUR/ 1 C-ARM/ [employer] ZOE CASON, *NEED MAGNET FOR PACEMAKER, PAT COMPLETED 07/08/19 Enrique Mayers MD [address] [facility] [email or web address], [address] [place] [address] [facility] FOR RECORDS PERTAINING TO PATIENTS WHO ARE [...] BE BASED ON THE PRIMARY CLINICAL RECORDS. [facility] [employer], [facility]. provides no warranty or guarantee of the accuracy or completeness of information in this document.
[2024-12-16 10:38] LABS: Basophils Absolute Auto 0.1 10^3/uL (0.0-0.1); Basophils Percent Auto 0.9 % (0.2-2.0); Eosinophils Absolute Auto 0.2 10^3/uL (0.0-0.7); Eosinophils Percent Auto 2.5 % (0.9-7.0); Hemoglobin 15.1 g/dL (14.0-18.0); Immature Granulocytes Abs Auto 0.01 10^3/uL (0.00-0.03); Immature Granulocytes Pct Auto 0.1 % (0.0-0.5); Lymphocytes Absolute Auto 1.5 10^3/uL (1.2-3.8); Lymphocytes Percent Auto 21.5 % (20.5-60.0); Mean Corpuscular HGB Conc 32.1 g/dL (29.9-35.2); Mean Corpuscular Hemoglobin 29.6 pg (25.9-34.0); Mean Corpuscular Volume 92.2 fL (80.0-94.0); Mean Platelet Volume 9.9 fL (9.5-13.5); Monocytes Absolute Auto 0.7 10^3/uL (0.3-0.8); Neutrophils Absolute Auto 4.5 10^3/uL (1.4-6.5); Platelet Count 145 10^3/uL (150-450); Red Cell Distribution Width 13.3 % (11.0-15.0); White Blood Count 6.9 10^3/uL (4.0-11.0)
[2024-12-16 11:33] LABS: Anion Gap 10.2; BUN Creatinine Ratio 21.4; Calcium 10.1 mg/dL (8.5-10.1); Carbon Dioxide 31.6 mmol/L (21.0-32.0); Chloride 107 mmol/L (98-107); Estimated GFR (African America 53 (>=60 mL/min/1.73m^2); Estimated GFR (Non-African Ame 44 (>=60 mL/min/1.73m^2); Glucose 74 mg/dL (74-106); Potassium 4.8 mmol/L (3.5-5.1); Sodium 144 mmol/L (136-145)
== END 2024-12-16 10:19 | disposition home or self-care (01) ==
LOC: LAB 10:21
PROVIDERS: PCP Internal Medicine; Visit Provider Internal Medicine Cardiovascular Disease
DX: I42.8 Other cardiomyopathies (principal)
CPT/HCPCS: 36415; 80048; 85025

== ENCOUNTER 2025-01-07 12:28 | Outpatient (OUT) | payer MEDICARE, OTHER, SELFPAY ==
--- OUTSIDE RECORDS SUMMARY | 2024-12-25 12:41 | XMS_ITS | Encounter Summary ---
Author Organization [facility] Address [address] [place] [address] Care Team Providers Care Edi Programmer Analyst Name Role Phone Ren Medrano MD Primary Care Provider [phone] Reason for Visit * Auth/Cert (Routine) Specialty Diagnoses / Procedures Referred By Lucia t Referred To Contact Diagnoses NICM (nonischemic cardiomyopathy) (CMS/HCC) NICM (nonischemic cardiomyopathy) (CMS/HCC) [I42.8] Procedures NM OFFICE/OUTPT VISIT,PROCEDURE ONLY Generator change ICD BiV Jose Angel Rey MD [address] [place] [address] Phone: tel: fax: [facility] [address] [place] [address] Phone: tel: fax: Referral ID Status Reason Start Date Expiration Date Visits Re quested Visits Authorized [id number] 1 1 Encounter Details Date Type Department Care Team (Late st Contact Info) Description 12/25/2024 12:41 PM EDT - 12/25/2024 7:32 PM EDT Hospital Encounter [facility] [address] [place] [address] Jose Angel Rey MD [address] [place] [address] NICM (nonischemic cardiomyopathy) (CMS/HCC) Discharge Disposition: Home or Self Care () Social History Tobacco Use Types Packs/Day Years Used Date Smoking Tobacco: Never Smokeless Tobacco: Never Alcohol Use Standard Drinks/Week Comments Yes 0 (1 standard drink = 0.6 oz pur e alcohol) occasional [place] Safety & Environment Answer Date Rec orded Fear of Current or Ex-Partner Not on file Emotionally Abused Not on file 09/20/2023 Physically Abused Not on file 09/20/2023 Sexually Abused Not on file 09/20/2023 Physically or Sexually Abused Not on file Sex and Gender Information Value Date Recorded Sex Assigned at Not on file Legal Sex Male 9:19 PM EDT Gender Identity Not on file Sexual Orientation Not on file documented as of this encounter Last Filed Vital Signs Vital Sign Reading Time Taken Comments Blood Pressure 149/91 12/25/2024 7:00 PM EDT Pulse 74 12/25/2024 7:00 PM EDT Temperature - - Respiratory Rate 18 12/25/2024 7:00 PM EDT Oxygen Saturation 98% 12/25/2024 7:00 PM EDT Inhaled Oxygen Concentration - - Weight - - Height - - Body Mass Index - - documented in this encounter Medications at Time of Discharge allopurinol (Zyloprim) 300 mg tablet allopurinol 300 mg tablet TAKE 1 TABLET BY MOUTH EVERY DAY 12/28/2015 baclofen (Lioresal) 10 mg tablet Take 1 tablet by mouth every 6 (six) hours during the day. 10/13/2024 doxycycline (Monodox) 100 mg capsuleIndicatio ns:NICM (nonischemic cardiomyopathy) (CMS/HCC) Take 1 capsule (100 mg) by mouth two times daily for 14 days. Take with at least 8 ounces (large glass) of water, do not lie down for 30 minutes after 28 capsule 12/25/2024 DULoxetine (Cymbalta) [address] capsule Take 60 mg by mouth at bedtime. 10/20/2023 ezetimibe (Zetia) 10 mg tablet Take 10 mg by mouth at bedtime. 01/14/2022 famotidine (Pepcid) 40 mg tablet Take 40 mg by mouth in the morning. 04/19/2022 Farxiga 10 mg TAKE 1 TABLET BY MOUTH EVERY DAY IN THE MORNING FOR 90 DAYS 12/04/2023 finerenone (Kerendia) 10 mg tablet Take 1 tablet by mouth in the morning. hydroxychloroqui ne (Plaquenil) 200 mg tablet Take 1 tablet by mouth in the morning. 06/02/2022 lubiprostone (Amitiza) 8 mcg capsule Take 8 mcg by mouth in the morning and at bedtime. 11/04/2024 metoprolol succinate XL (Toprol-XL) 25 mg 24 hr tabletIndication s:Chronic systolic (congestive) heart failure (CMS/HCC) TAKE 1 TABLET BY MOUTH ONCE A DAY DIRECTED 90 tablet 3 10/20/2024 montelukast (Singulair) 10 mg tablet montelukast 10 mg tablet 12/28/2015 naltrexone (Depade) 50 mg tablet Take 50 mg by mouth in the morning. pregabalin (Lyrica) 200 mg capsule Take 200 mg by mouth in the morning and at bedtime. 05/15/2022 rosuvastatin (Crestor) 10 mg tablet Take 10 mg by mouth at bedtime. 06/30/2022 sacubitriL-valsa rtan (Entresto) 49-51 mg tablet Entresto 49 mg-51 mg tablet TAKE 1 TABLET BY MOUTH TWICE A DAY *HOLD IF BLOOD PRESSURE LESS THAN 100* documented as of this encounter H&P Notes * Jose Angel Rey MD - 12/25/2024 3:30 PM EDT Images from the original note were not included. [place] Cardiology Note [facility] Reason for follow-up: BiV ICD HPI: Kevin Aiken is a 79 y.o. year old with past medical history of NICM, SHF, BiV ICD. He recently had labs done and was found to be hyperkalemic at 5.2. at his most recent visit he had hyperkalemia as well but was at 5.7, he was given a few doses of lasix, lab was redrawn and then it did come down within normal range. He has had no complaints or concerns and states he has felt fine He has been tolerating his medications well and has had mild swelling of his lower extremities which is unchanged compared to previous. Patient is here today for a follow up. Patient states he is feel good. Patient denies chest pain, SOB, dizziness, or leg swelling. Patient complains of back pain which radiates down the right leg. Review of Systems Musculoskeletal: Positive for back pain Review of Systems Constitutional: Negative for fever. HENT: Positive for tinnitus (chronic). Cardiovascular: Positive for leg swelling (mild). Negative for chest pain, palpitations and syncope. Respiratory: Negative for shortness of breath and sleep disturbances due to breathing. Musculoskeletal: Positive for back pain. Neurological: Negative for dizziness and light-headedness. All other systems reviewed and are negative. K - 5.2, repeat bmp in 3 days, cr 1.79 ------- Previous HPI Dr. Aguilar 11/04/2021: Kevin Aiken is seen in follow up on NICM, SHF, s/p BiV/ICD. Visit of 01/14/2018: Kevin Aiken is seen in follow up after recent admission to [facility] when he developed hypotension after [place] for urologic surgery. He has history of non ischemic Cardiomyopathy and systolic heart failure with cath in 2007 at [facility] showing no significant CAD when his EF was 30%. He had a recent stress test at Dr Medrano's office which was negative. He has been maintained on coreg and Entresto maximum dosage for >4 months now. On his recent echocardiogram at [facility] there was reduced EF 30% and possible apical thrombus. A followup echocardiogram with definity on 01/11/2018 showed EF 25% with no thrombus. He is in NYHA class II-III. He has no chest pain. He has mild leg swelling. He has a know chronic LBBB with QRS close to 180 ms. I started him on aspirin after the recent hospitalization. His blood pressure at home is around 120 mmHg systolic. Update 03/21/2018: He is seen in follow up. He underwent BiV/ICD on 02/05/[address] Jolley. He has done well. He had redness at the site and was treated with doxycycline to complete 10 days course in 2 days. He has been well. No fever. No chills. No chest pain. NYHA class II. Update 05/22/2018: He is seen in follow up. He is now s/p BiV/ICD on 02/05/[address] Jolley. He has done well. He says he felt a difference with improvement in symptoms after the pacer. he cannow sleep through the night with no dyspnea. No chest pain. NYHA class II. Echocardiogram 05/20/2018: Global left ventricular systolic function is severely reduced (Visually estimated EF 25%). The leftventricle appears enlarged. Diffuse global hypokinesis. Normal right ventricular systolic function.A ICD lead is seen in the right ventricle. Limited echocardiogram was done to assess left ventricular systolic function Update 01/28/2020: He is seen in follow-up via telemedicine. He has been relatively okay except for low blood pressure lately with systolic numbers in the 90s. He has been symptomatic with that. Dr. Medrano did reduce his Entresto to the 49-51 mg tablet twice daily. He just started taking the new dose today. He also reports that Dr. Medrano did blood testing about a month or so ago and his creatinine was mildly elevated. Otherwise he feels okay. No angina. No significant shortness of breath and no lower extremity edema. He seems to be in NYHA class II. Of note, he has been taking carvedilol 3.125 mg once daily only. Update 11/04/2021: He is seen in follow-up. He has been doing well. He has no significant shortness of breath on exertion. He has mild lower extremity edema. No chest pain. No syncope. His blood pressure has been low and carvedilol was stopped. Echocardiogram 04/13/2021: severely reduced LVSF EF 20- 25%, global hypokinesis RV normal size and function. Mild Pulm HTN No significant valvular abnormalities Asc aorta mild diltation 04/13/21 CBC- stable; BUN 23, CR 1.48; LFT normal ; Chol 119, HDL 63, Trig 73, LDL 41.4 Blood testing 05/09/2021: Potassium 4.7, BUN 22, creatinine 1.6. GFR 42. Device check 09/12/2021: Normal functioning device, no events. PMH: Past Medical History: Diagnosis Date CHF (congestive heart failure) (CMS/HCC) Hypertension LBBB (left bundle branch block) LV (left ventricular) mural thrombus Non-ischemic cardiomyopathy (CMS/HCC) PSH: Past Surgical History: Procedure Laterality Date BACK SURGERY BLADDER STONE REMOVAL CARDIAC CATHETERIZATION HERNIA REPAIR INSERT / REPLACE / REMOVE PACEMAKER INSERTION / REMOVAL EPIDURAL SPINAL NEUROSTIMULATOR SH: Social Determinants of Health Tobacco Use: Low Risk (12/09/2024) Patient History Smoking Tobacco Use: Never Smokeless Tobacco Use: Never Passive Exposure: Not on file Alcohol Use: Not on file Financial Resource Strain: Not on file Food Insecurity: Not on file Transportation Needs: Not on file Physical Activity: Not on file Stress: Not on file Social Connections: Not on file Intimate Partner Violence: Unknown (09/20/2023) [place] Safety & Environment Fear of Current or Ex-Partner: Not on file Emotionally Abused: Not on file Physically Abused: Not on file Sexually Abused: Not on file Physically or Sexually Abused: Not on file Depression: Not on file Housing Stability: Not on file Utilities: Not on file Health Literacy: Not on file Allergies: Allergies Allergen Reactions Tamsulosin Other and Unknown Passed out Weight: 104kg Meds: No current facility-administered medications on file prior to encounter. Current Outpatient Medications on File Prior to Encounter Medication Sig Dispense Refill allopurinol (Zyloprim) 300 mg tablet allopurinol 300 mg tablet TAKE 1 TABLET BY MOUTH EVERY DAY baclofen (Lioresal) 10 mg tablet Take 1 tablet by mouth every 6 (six) hours during the day. DULoxetine (Cymbalta) [address] capsule Take 60 mg by mouth at bedtime. ezetimibe (Zetia) 10 mg tablet Take 10 mg by mouth at bedtime. famotidine (Pepcid) 40 mg tablet Take 40 mg by mouth in the morning. Farxiga 10 mg TAKE 1 TABLET BY MOUTH EVERY DAY IN THE MORNING FOR 90 DAYS finerenone (Kerendia) 10 mg tablet Take 1 tablet by mouth in the morning. hydroxychloroquine (Plaquenil) 200 mg tablet Take 1 tablet by mouth in the morning. lubiprostone (Amitiza) 8 mcg capsule Take 8 mcg by mouth in the morning and at bedtime. metoprolol succinate XL (Toprol-XL) 25 mg 24 hr tablet TAKE 1 TABLET BY MOUTH ONCE A DAY DIRECTED 90 tablet 3 montelukast (Singulair) 10 mg tablet montelukast 10 mg tablet naltrexone (Depade) 50 mg tablet Take 50 mg by mouth in the morning. pregabalin (Lyrica) 200 mg capsule Take 200 mg by mouth in the morning and at bedtime. rosuvastatin (Crestor) 10 mg tablet Take 10 mg by mouth at bedtime. sacubitriL-valsartan (Entresto) 49-51 mg tablet Entresto 49 mg-51 mg tablet TAKE 1 TABLET BY MOUTH TWICE A DAY *HOLD IF BLOOD PRESSURE LESS THAN 100* Physical Exam: Constitutional General Appearance: well-nourished, well-developed, appears stated age Level of Distress: comfortable Psychiatric Mental Status: alert, normal affect Orientation: oriented to time, place, and person Insight: good judgement Eyes Lids and Conjunctivae: non-injected, no xanthelasma ENMT Ears: no lesions on external ear Nose: no lesions on external nose Oropharynx: no cyanosis, no pallor Neck Neck: supple, trachea midline Carotid Arteries: bilateral normal upstroke, no bruits Jugular Veins: normal jugular venous pressure Thyroid: not enlarged Lungs Respiratory Effort: unlabored Chest Exam: normal curvature, no thoracic deformity Auscultation: clear, no wheezing, no rales, no rhonchi Cardiovascular Rate And Rhythm: regular Heart Sounds: normal S1, normal s2, no gallop Systolic Murmur: not heard Diastolic Murmur: not heard Extremities: no cyanosis, mild BLE edema, no peripheral signs of emboli Peripheral Pulses Radial Pulse: normal Abdomen Inspection and Palpation: soft, non distended, no bruit, non tender Musculoskeletal Inspection: no joint swelling Neurologic Gait: normal gait Skin Inspection and Palpation: warm and dry Nails: no clubbing Labs: Labs in media tab - 07/13/22 Cr. 1.79 (unchanged) K - 5.2 (was high previously and treated with lasix) No results found for: CHOLESTEROL TOTAL , HDL , LDL CALC , LDL DIRECT , TRIGLYCERIDES , TSH , T3 TOTAL , T4 TOTAL , THYROID PEROXIDASE AB , BNP EKG: No results found for this or any previous visit (from the past 4464 hour(s)). Echo: 04/18/23 Stress test: Coronary angiogram: @CATH@ Diagnostic Imaging: No images are attached to the encounter. Assessment and Plan: - s/p BiV ICD; Device at PANCHO and will proceed with gen change. - NICMP: CT GDMT - HTN: Ct meds. I discussed the procedure in length with figures to the patient and went over the risks, benefits and alternatives. I stated that the risk can be minor complications unless there is need for lead placement. The minor include discomfort over the incision site, erythema. The major complications include vessel injury consisting of AV fistula, pneumothorax, pseudoaneurysm, thromboembolism including DVT stroke systemic emboli endorgan damage and even . We also discussed the possibility of lead induced perforation leading to pericardial effusion or tamponade which may or may not require surgical intervention as well as the possibility of valve damage from entrapment leading to valve regurgitation. Overall the risk of these complications ranged anywhere from 1-5%. Patient verbalized understanding and have agreed to proceed with the procedure Jose Angel Rey MD Cardiac Electrophysiology [facility] documented in this encounter Procedure Notes * Jose Angel Rey MD - 12/25/2024 7:32 PM EDT Images from the original note were not included. BiV-ICD GENERATOR REPLACEMENT PROCEDURE NOTE DATE OF PROCEDURE: 12/25/2024 PERFORMING PHYSICIAN: Dr. Jose Angel Rey CONSENT: Patient LOCATION: EP Lab PROCEDURE PERFORMED: 1. Implantation of new BiV-ICD generator (Medtronic) 2. Explant of previously implanted BiV-ICD generator (Medtronic) INDICATIONS: 1. Device at EOL. PROCEDURAL SEDATION: Versed and Fentanyl. Moderate sedation was administered by the sedation nurse under my supervision and noted in the CVL log. Intraprocedural face to face sedation time: 45min. Monitoring: Cardiac telemetry, Blood pressure, continuous pulse oxymetry. FLUOROSCOPY TIME:0min EBL: 5cc SPECIMEN REMOVED: None PROCEDURAL DETAILS: Patient was brought to the EP lab in the post absorptive state. A procedural pause was performed identifying the patient, the procedure to be performed and the site of implant. The left chest was prepped and draped in the usual sterile fashion. Preoperative antibiotics IV Ancef was administered. Patient was placed in trendelenberg position and local infiltration of 1% Lidocaine was performed, and an incision was created in the left upper chest. Dissection was then performed using cautery down to the fascial plane to identify the capsule. Capsulotomy was performed and the device was freed and the leads were freed form the underlying capsule. Capsulectomy was performed so as to open and exteriorize the device. Leads were then removed and connected to a new Medtronic BiV-ICD generator in sequence. Once both leads were attached, pacing thresholds, sensing and impedance were checked and noted to be stable as prior to procedure. Pocket hemostasis was secured, and it was t hen copiously and vigorously irrigated with antibiotic solution. The leads were wrapped under the device and the device was tacked to underlying muscle and placed in the pocket. The pocket was closedin layers: subcutaneous and skin layer using 2-0 Vicryl. Glue was applied and Tegaderm dressing wasplaced on top. Lead parameters were then rechecked through the device as noted below. The patient was returned to the short stay room for post procedural observation. No immediate procedural complications were noted. The LV thresholds were checked and best one noted to be LV1-RV coil. This was chosen. POST PROCEDURE EXAM: Patient was hemodynamically stable. COMPLICATIONS: None. IMPRESSION: 1. Successful BiV-ICD generator change with excellent pacing and sensing parameters. RECOMMENDATIONS: 1. Occlusive dressing to be removed after 2 weeks. 2. Do not wet the incision for 7 days. 3. F/u in device clinic 1 week from discharge or sooner for any concerns. 4. Doxycycline 100mg bid x 2 weeks. Jose Angel Rey MD Cardiac Electrophysiology documented in this encounter Nursing Notes * Joan Meyer RN - 12/25/2024 7:03 PM EDT RN educated pt on d/c instructions. This included: site care, limited physical activity, resume normal diet, future appointments, medications, and moderate sedation instructions. RN educated pt on when to notify physician and when to go to the hospital. RN provided pt with arm sling and educated pt on importance of not lifting arm above 90 degrees, weight bearing more than 5lbs, and driving for the next 4 weeks. RN encouraged pt to voice any questions or concerns, and answered any questions or concerns if pt verbalized. Pt was wheeled off of unit with all of belongings. * Joan Meyer RN - 12/25/2024 3:32 PM EDT CHG wipes and betadine nasal swabs completed. documented in this encounter Miscellaneous Notes * Pre-Sedation Documentation - Jose Angel Rey MD - 12/25/2024 3:30 PM EDT Patient: Kevin Aiken Procedure Information Date/Time: 12/25/241499 Procedure: Generator change ICD BiV - PC APPROVED Medtronic Location: [facility] / [facility] (Cath) Providers: Jose Angel Rey MD Clinical information reviewed: Allergies Meds Physical Exam Airway Mallampati: II TM distance: >3 FB Neck ROM: full Cardiovascular Dental Pulmonary Abdominal Anesthesia Plan ASA 3 CSE Anesthetic plan and risks discussed with patient. Use of blood products discussed with patient who. Additional Equipment Requests documented in this encounter Plan of Treatment Upcoming Encounters Date Type Department Care Team (Late st Contact Info) Description 02/17/2025 1:00 PM EDT Ancillary Procedure [facility] [address] [place] [address] 03/03/2025 11:15 AM EDT Office Visit [facility] [address] [place] [address] Jose Angel Rey MD [address] [place] [phone] documented as of this encounter Procedures Procedure Name Priority Date/Time Associated Diagnosis Comments GENERATOR CHANGE ICD BIV Routine 12/25/2024 6:24 PM EDT NICM (nonischemic cardiomyopathy) (CMS/HCC) documented in this encounter Results * GENERATOR CHANGE ICD BIV (12/25/2024 6:24 PM EDT) Anatomical Region Laterality Modality Other Impressions 12/26/2024 12:37 PM EDT 1. Successful BiV-ICD generator change with excellent pacing and sensing parameters. RECOMMENDATIONS: 1. Occlusive dressing to be removed after 2 weeks. 2. Do not wet the incision for 7 days. 3. F/u in device clinic 1 week from discharge or sooner for any concerns. 4. Doxycycline 100mg bid x 2 weeks. Jose Angel Rey MD Cardiac Electrophysiology Narrative 12/26/2024 12:37 PM EDT Images from the original result were not included. BiV-ICD GENERATOR REPLACEMENT PROCEDURE NOTE DATE OF PROCEDURE: 12/25/2024 PERFORMING PHYSICIAN: Dr. Jose Angel Rey CONSENT: Patient LOCATION: EP Lab PROCEDURE PERFORMED: 1. Implantation of new BiV-ICD generator (Medtronic) 2. Explant of previously implanted BiV-ICD generator (Medtronic) INDICATIONS: 1. Device at EOL. PROCEDURAL SEDATION: Versed and Fentanyl. Moderate sedation was administered by the sedation nurse under my supervision and noted in the CVL log. Intraprocedural face to face sedation time: 45min. Monitoring: Cardiac telemetry, Blood pressure, continuous pulse oxymetry. FLUOROSCOPY TIME:0min EBL: 5cc SPECIMEN REMOVED: None PROCEDURAL DETAILS: Patient was brought to the EP lab in the post absorptive state. A procedural pause was performed identifying the patient, the procedure to be performed and the site of implant. The left chest was prepped and draped in the usual sterile fashion. Preoperative antibiotics IV Ancef was administered. Patient was placed in trendelenberg position and local infiltration of 1% Lidocaine was performed, and an incision was created in the left upper chest. Dissection was then performed using cautery down to the fascial plane to identify the capsule. Capsulotomy was performed and the device was freed and the leads were freed form the underlying capsule. Capsulectomy was performed so as to open and exteriorize the device. Leads were then removed and connected to a new Medtronic BiV-ICD generator in sequence. Once both leads were attached, pacing thresholds, sensing and impedance were checked and noted to be stable as prior to procedure. Pocket hemostasis was secured, and it was then copiously and vigorously irrigated with antibiotic solution. The leads were wrapped under the device and the device was tacked to underlying muscle and placed in the pocket. The pocket was closed in layers: subcutaneous and skin layer using 2-0 Vicryl. Glue was applied and Tegaderm dressing was placed on top. Lead parameters were then rechecked through the device as noted below. The patient was returned to the short stay room for post procedural observation. No immediate procedural complications were noted. The LV thresholds were checked and best one noted to be LV1-RV coil. This was chosen. POST PROCEDURE EXAM: Patient was hemodynamically stable. COMPLICATIONS: None. Jose Angel Rey MD CV ELECTROPHYSIOLOGY PROCEDURES Final Result documented in this encounter Visit Diagnoses Diagnosis NICM (nonischemic cardiomyopathy) (CMS/HCC)- Primary NICM (nonischemic cardiomyopathy) (CMS/HCC) documented in this encounter Admitting Diagnoses Diagnosis NICM (nonischemic cardiomyopathy) (CMS/HCC) documented in this encounter Active and Recently Administered Medications Times are shown in EDT. Scheduled Medication Order 12/23/2024 12/24/2024 12/25/2024 ceFAZolin (Ancef) 1,000 mg, gentamicin (Garamycin) 80 mg in sodium chloride irrigation solution 0.9 % 500 mL IRRIGATION (COMPLETED) irrigation, Once, On Skyla 12/25/24 at 1815, For 1 dose, Intraprocedure, Indication: Surgical Prophylaxis 1803 (Given - Provid er: Jose Angel Rey MD)1814 (Due) ceFAZolin in dextrose (iso-os) (Ancef) IVPB 2 g (COMPLETED) 2 g, intravenous, at 100 mL/hr, Administer over 30 Minutes, Once, On Skyla 12/25/24 at 1745, For 1 dose, Intraprocedure, Administer within 60 minutes of incision. Duplex bag - activate before hanging., Suspected Indication (Select all that apply): Surgical Prophylaxis 1738 (New Bag - Prov ider: Betsy Garcia RN)174 (Due) PRN Medication Order 12/23/2024 12/24/2024 12/25/2024 fentaNYL (Sublimaze) injection (CANCELED) As needed, Starting on Skyla 12/25/24 at 1739, Intraprocedure 1738 (Given - Provid er: Rosa Elena Davis RN)174 (Given - Provider: Rosa Elena Davis RN)175 (Given - Provider: Rosa Elena Davis RN) lidocaine (PF) (Xylocaine) 10 mg/mL (1 %) injection (CANCELED) As needed, Starting on Skyla 12/25/24 at 1747, Intraprocedure 1747 (Given - Provid er: Jose Angel Rey MD) midazolam (Versed) injection (CANCELED) As needed, Starting on Skyla 12/25/24 at 1739, Intraprocedure 1739 (Given - Provid er: Rosa Elena Davis, ELINA)1748 (Given - Provider: Rosa Elena Davis, RN)1759 (Given - Provider: Rosa Elena Davis, RN) sodium chloride 0.9 % infusion (COMPLETED) Continuous PRN, Starting on Skyla 12/25/24 at 1738, Intraprocedure 1738 (New Bag - Prov ider: Betsy Garcia RN) documented in this encounter Care Teams Edi Programmer Analyst Relationship Specialty Start Date End Date Ren Medrano MD [facility] [place] [address] PCP - General 06/21/22 documented as of this encounter
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
--- OUTSIDE RECORDS SUMMARY | 2025-01-01 11:40 | XMS_ITS | Encounter Summary ---
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 S/P generator change on 12/25/2024 Patient denies fever or chills, small amount of pain 1/10 occasionally, Redness noted around Tegaderm. Small amount of discharge noted on bandage. Review of Systems Constitutional: Negative. * Sujatha Ridley CNP - 01/01/2025 11:40 AM EDT Images from the original note were not included. [place] [facility] Patient in clinic today for a wound check s/p generator change. PMHx: systolic heart failure, hypertension, and ischemic congestive cardiomyopathy s/p BiV/ICD 01/01/2025 He notes he had some discomfort around his incision for the first few days when he would go to bed (when laying on his left side) but this has resolved. Denies c/o CP, dyspnea, orthopnea, PND, LE edema, dizziness/LH, palpitations, syncope, fevers/chills, abnormal drainage. Physical Exam Constitutional: Appearance: Normal appearance. He is normal weight. HENT: Head: Normocephalic and atraumatic. Right Ear: External ear normal. Left Ear: External ear normal. Eyes: Extraocular Movements: Extraocular movements intact. Pupils: Pupils are equal, round, and reactive to light. Neck: Vascular: No carotid bruit. Pulmonary: Effort: Pulmonary effort is normal. Musculoskeletal: General: Normal range of motion. Cervical back: Neck supple. Right lower leg: No edema. Left lower leg: No edema. Skin: General: Skin is warm and dry. Comments: Left upper chest pacemaker incision with surgical glue intact. No s/s of infection including no erythema/calor/drainage. No ecchymosis or hematoma. Neurological: General: No focal deficit present. Mental Status: He is alert and oriented to person, place, and time. Psychiatric: Mood and Affect: Mood normal. Behavior: Behavior normal. Thought Content: Thought content normal. Judgment: Judgment normal. BiV-ICD GENERATOR REPLACEMENT PROCEDURE NOTE DATE OF [...] weeks. Jose Angel Rey MD Cardiac Electrophysiology A/P: #HFimpEF s/p BiV-ICD -Recent generator change. Incision is healing well and without any s/s of infection including no erythema/calor/drainage. No hematoma present. -Instructed patient it is okay to shower but avoid direct shower head pressure. -Do not apply any creams/lotions/ointments/gels to incision. Keep incision clean and dry. -Instructed patient to notify clinic for any s/s of infection including fever/chills, worsening pain, abnormal drainage, etc. -He is scheduled for a 1 month device check. Follow-up in clinic in 2-3 months. Sujatha Ridley APRN-[facility] documented in this encounter Plan of Treatment Upcoming Encounters Date Type Department Care Team (Late st Contact Info) Description 02/17/2025 1:00 PM EDT Ancillary Procedure [facility] [address] [place] [address] 03/03/2025 11:15 AM EDT Office Visit [facility] [address] [place] [phone] Jose Angel Rey MD [address] [place] [phone] documented as of this encounter Visit Diagnoses Diagnosis Heart failure with improved ejection fraction (HFimpEF) ([facility])- Primary Biventricular implantable cardioverter-defibrillator (ICD) in situ Visit for wound check documented in this encounter Care Teams Reweaver Relationship Specialty Start Date End Date Ren Medrano MD [facility] [place] [address] PCP - General 06/21/22 documented as of this encounter
--- OUTSIDE RECORDS SUMMARY | 2025-01-07 12:30 | XMS_ITS | Encounter Summary ---
Author Organization [facility] Address [address] [place] [address] Care Team Providers Care Link Trainer Mechanic Name Role Phone Marcela Carter DO, Charles Lewis Primary Care Provi minoo Source Comments In the event this information is protected by the Federal Confidentiality of Alcohol and Drug AbusePatient Records regulations: The Federal rules restrict any use of the information to criminally investigate or prosecute any alcohol or drug abuse patient.[facility] Encounter Details Date Type Department Care Team (Late st Contact Info) Description 02/03/2015 Abstract Cardiology [address] [place] [address] Mark Domínguez MD [facility] [address] [place] [address] Social History Tobacco Use Types Packs/Day Years Used Date Smoking Tobacco: Former Alcohol Use Standard Drinks/Week Comments Yes 0 (1 standard drink = 0.6 oz pur e alcohol) occassional Sex and Gender Information Value Date Recorded Sex Assigned at Not on file Legal Sex Male 10:00 AM EST Gender Identity Not on file Sexual Orientation Not on file documented as of this encounter Plan of Treatment Not on file documented as of this encounter Visit Diagnoses Not on filedocumented in this encounter Care Teams Link Trainer Mechanic Relationship Specialty Start Date End Date Ren Medrano Jr., DO [facility] [place] [address] PCP - General 04/03/03 documented as of this encounter
--- OUTSIDE RECORDS SUMMARY | 2025-01-07 12:30 | XMS_ITS | Clinical Summary ---
Author Organization [facility] Address [address] [place], [place] [id number] Care Team Providers Care [employer] Reading Teacher Name Role Phone Marcela Carter DO, Charles Lewis Primary Care Provi minoo Allergies Active Allergy Reactions Criticality Noted Date Comments Tamsulosin Hcl Unknown 02/03/2015 Medications PREGABALIN (LYRICA ORAL) Take 200 mg by mouth three times daily. Active EZETIMIBE (ZETIA ORAL) Take 10 mg by mouth once daily. Active DULOXETINE HCL (CYMBALTA ORAL) Take 60 mg by mouth once daily. Active OLMESARTAN MEDOXOMIL (BENICAR ORAL) Take 20 mg by mouth daily at bedtime. Active ALLOPURINOL ORAL Take 300 mg by mouth once daily. Active MONTELUKAST SODIUM (MONTELUKAST ORAL) Take 10 mg by mouth once daily. Active metoprolol succinate ER (TOPROL XL) 100 mg Tb24 Take 0.5 tablets by mouth once daily. 90 tablet 3 02/04/2015 Active aspirin, enteric coated (ASPIR-LOW) 81 mg EC tablet Take 1 tablet by mouth once daily. 0 02/04/2015 Active Active Problems Problem Noted Date Diagnosed Date Cardiomyopathy 02/04/2015 Hypertension 02/04/2015 Preoperative cardiovascular examination 02/05/20 15 LBBB (left bundle branch block) 02/04/2015 Family History Medical History Relation Comments Stroke Father Stroke Mother Relation Status Comments Father Mother Social History Tobacco Use Types Packs/Day Years Used Date Smoking Tobacco: Former Cigarettes 0 07/30/1964 - 07/30/1974 Smokeless Tobacco: Never Alcohol Use Standard Drinks/Week Comments Yes 0 (1 standard drink = 0.6 oz pur e alcohol) seldom Sex and Gender Information Value Date Recorded Sex Assigned at Not on file Legal Sex Male 10:00 AM EST Gender Identity Not on file Sexual Orientation Not on file Occupation Industry Job Start Date Job End Date Not on file Not on file Not on file Not on file Last Filed Vital Signs Vital Sign Reading Time Taken Comments Blood Pressure 148/84 02/04/2015 9:23 AM EDT Pulse 66 02/04/2015 9:23 AM EDT Temperature 36.4 C (97.5 F) 02/04/2015 9:23 AM EDT Respiratory Rate 16 02/04/2015 9:23 AM EDT Oxygen Saturation 95% 02/04/2015 9:23 AM EDT Inhaled Oxygen Concentration - - Weight 116.5 kg (256 lb 12.8 oz) 02/04/2015 9:23 AM EDT Height 185.4 cm (6' 1 ) 02/04/2015 9:23 AM EDT Body Mass Index 33.88 02/04/2015 9:23 AM EDT Plan of Treatment Health Maintenance Due Date Last Done Comments Anxiety Screening 02/28/1964 Depression Screening 02/28/1964 Hepatitis C Screening 02/28/1964 DTaP,Tdap,Td Vaccine (1 - Tdap) 1965 Diabetes Screening 1991 Pneumococcal Vaccine: 50+ (1 of 1 - PCV) 02/28/1996 Shingrix Vaccine (1 of 2) 02/28/1996 RSV Vaccine (1 - 1-dose 75+ series) 2021 Covid-19 Vaccine (1 - season) 2024 Advance Directive Discussion 07/30/2024 Influenza Vaccine (Season Ended) 2025 Care Teams [employer] Reading Teacher Relationship Specialty Start Date End Date Ren Medrano Jr., DO [address] [place] [address] PCP - General 04/03/03
--- OUTSIDE RECORDS SUMMARY | 2025-01-07 12:30 | XMS_ITS | Referral Summary ---
Author Organization [facility] Address [address] [place] [address] Care Team Providers Care General Partner Name Role Phone Ren Medrano MD Primary Care Provider [phone] Encounters Date Type Department Care Team Description 01/01/2025 11:40 AM EDT Office Visit [facility] Heart 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); Biventricular implantable cardioverter-defibrill ator (ICD) in situ; Visit for wound check 12/25/2024 Orders Only [facility] Heart [facility] [address] [place] [address] Latrice Jewell RN 12/25/2024 Travel 12/25/2024 3:00 PM EDT - 12/25/2024 4:00 PM EDT Surgery [facility] Heart [facility] [address] [place] [address] Jose Angel Rey MD Generator change ICD BiV [[id number]] 12/25/2024 12:41 PM EDT - 12/25/2024 7:32 PM EDT Hospital Encounter [facility] Heart [facility] [address] [place] [address] Jose Angel Rey MD NICM (nonischemic cardiomyopathy) (CMS/HCC) Discharge Disposition: Home or Self Care (01) 12/17/2024 Orders Only [facility] [address] [place] [address] Jose Angel Rey MD 12/16/2024 Travel 12/09/2024 11:00 AM EDT Office Visit [facility] [address] [place] [address] Jose Angel Rey MD NICM (nonischemic cardiomyopathy) ([facility]) 11/17/2024 Orders Only [facility] [address] [place] [address] Laura Pardo MD 11/17/2024 3:35 PM EDT Ancillary Procedure [facility] [address] [place] [address] Pre-operative cardiovascular examination, ICD in place 10/18/2024 Refill [facility] [address] [place] [facility] [place] [address] Ralph Aguilar MD Chronic systolic (congestive) heart failure ([facility]/HCC) 10/17/2024 6:00 PM EDT Ancillary Procedure [facility] [address] [place] [address] Pre-operative cardiovascular examination, ICD in place 10/16/2024 8:00 PM EDT Ancillary Procedure [facility] [address] [place] [address] Pre-operative cardiovascular examination, ICD in place from Last 3 Months Allergies Active Allergy Reactions Criticality Noted Date Comments Tamsulosin Other,Unknown 02/03/2015 Passed out Medications allopurinol (Zyloprim) 300 mg tablet allopurinol 300 mg tablet TAKE 1 TABLET BY MOUTH EVERY DAY 6 Active sacubitriL-vals tori (Entresto) 49-51 mg tablet Entresto 49 mg-51 mg tablet TAKE 1 TABLET BY MOUTH TWICE A DAY *HOLD IF BLOOD PRESSURE LESS THAN 100* Active ezetimibe (Zetia) 10 mg tablet Take 10 mg by mouth at bedtime. 2 Active famotidine (Pepcid) 40 mg tablet Take 40 mg by mouth in the morning. 2 Active hydroxychloroqu ine (Plaquenil) 200 mg tablet Take 1 tablet by mouth in the morning. 2 Active montelukast (Singulair) 10 mg tablet montelukast 10 mg tablet 6 Active rosuvastatin (Crestor) 10 mg tablet Take 10 mg by mouth at bedtime. 2 Active pregabalin (Lyrica) 200 mg capsule Take 200 mg by mouth in the morning and at bedtime. 2 Active naltrexone (Depade) 50 mg tablet Take 50 mg by mouth in the morning. Active Farxiga 10 mg TAKE 1 TABLET BY MOUTH EVERY DAY IN THE MORNING FOR 90 DAYS 4 Active DULoxetine (Cymbalta) [address] capsule Take 60 mg by mouth at bedtime. 4 Active finerenone (Kerendia) 10 mg tablet Take 1 tablet by mouth in the morning. Active metoprolol succinate XL (Toprol-XL) 25 mg 24 hr tabletIndicatio ns:Chronic systolic (congestive) heart failure (CMS/HCC) TAKE 1 TABLET BY MOUTH ONCE A DAY DIRECTED 90 tablet 3 5 Active lubiprostone (Amitiza) 8 mcg capsule Take 8 mcg by mouth in the morning and at bedtime. 5 Active baclofen (Lioresal) 10 mg tablet Take 1 tablet by mouth every 6 (six) hours during the day. 5 Active doxycycline (Monodox) 100 mg capsuleIndicati ons:NICM (nonischemic cardiomyopathy) (CMS/HCC) Take 1 capsule (100 mg) by mouth two times daily for 14 days. Take with at least 8 ounces (large glass) of water, do not lie down for 30 minutes after 28 capsule 5 01/09/20 25 Active Active Problems Problem Noted Date Diagnosed Date NICM (nonischemic cardiomyopathy) 12/09/2024 Benign prostatic hyperplasia with urinary obstru ction 07/17/2022 Cyst of epididymis 07/17/2022 Former smoker 07/17/2022 History of renal calculi 07/17/2022 Nocturia 07/17/2022 Pain in testicle 07/17/2022 Poor urinary stream 07/17/2022 Ischemic congestive cardiomyopathy 11/27/2018 Assessment & Plan (04/25/2023 11:23 AM EDT): Coronary artery disease is stable Continue GDMT- crestor, entresto, toprol and zetia continue risk factor modifications- heart healthy diet, regular exercise as tolerated and continue all medications. Systolic heart failure 11/27/2018 Assessment & Plan (04/25/2023 11:25 AM EDT): [place] IIb- EF recovered 50-55% on current echo was 25% Currently he is fairly euvolemic without exacerbation Continue GDMT- toprol, entresto, crestor and zetia Diuretic therapy- currently jardiance Monitor daily weights, I&O, fluid restriction 1.5-2L/day, renal function and electrolytes- Assessment & Plan (07/18/2022 9:09 PM EST): - mild swelling but appears euvolemic -cr elevated which is baseline for him, hyperkalmic at 5.2 -will recheck bmp in 3 days and if needed will treat with lasix which will also reduce LE edema Cardiomyopathy 02/04/2015 Benign hypertensive cardiomyopathy with heart fa ilure 02/04/2015 Assessment & Plan (04/25/2023 11:23 AM EDT): HTn is controlled 138/84 Continue entresto and toprol Assessment & Plan (07/18/2022 9:08 PM EST): Hypertension is stable today -continue metoprololXL 25mg, entresto LBBB (left bundle branch block) 02/04/2015 Preoperative cardiovascular examination 02/05/20 15 Social History Tobacco Use Types Packs/Day Years Used Date Smoking Tobacco: Never Smokeless Tobacco: Never Tobacco Cessation:Counseling Given: Not Answered Alcohol Use Standard Drinks/Week Comments Yes 0 [...] on file Sexual Orientation Not on file Last Filed Vital Signs Vital Sign Reading Time Taken Comments Blood Pressure 149/91 12/25/2024 7:00 PM EDT Pulse 74 12/25/2024 7:00 PM EDT Temperature - - Respiratory Rate 18 12/25/2024 7:00 PM EDT Oxygen Saturation 98% 12/25/2024 7:00 PM EDT Inhaled Oxygen Concentration - - Weight 103 kg (227 lb) 01/01/2025 11:52 AM EDT Height 185.4 cm (6' 1 ) 01/01/2025 11:52 AM EDT Body Mass Index 29.95 01/01/2025 11:52 AM EDT Plan of Treatment Upcoming Encounters Date Type Department Care Team (Late st Contact Info) Description 02/17/2025 1:00 PM EDT Ancillary Procedure [facility] [address] [place] [address] 03/03/2025 11:15 AM EDT Office Visit [facility] [address] [place] [address] Jose Angel Rey MD [address] [place] [address] Medical Devices Implanted Type Area Community Service Organization Director Device Identifier Shelf Expiration Date Model / Serial / Lot [id number] Amplia Mri Quad Industry Segment Specialist-D [id number] Implanted:02/05 (Quantity not on file) BLOCK BREAKER-D ICD [id number] AMPLIA MRI QUAD BLOCK BREAKER-D / [id number] / [place] Xt Hf Quad Industry Segment Specialist-D Implanted:Qty: 1 on 12/25/2024 by Jose Angel Rey MD at [facility] BLOCK BREAKER-D ICD Left: Chest Medtronic 02/03/2026 [id number] / [id number] / Procedures Procedure Name Priority Date/Time Associated Diagnosis Comments GENERATOR CHANGE ICD BIV Routine 12/25/2024 6:24 PM EDT NICM (nonischemic cardiomyopathy) ([facility]) CARDIAC DEVICE CHECK - REMOTE ALERT - ICD Routine 12/17/2024 12:00 AM EDT CARDIAC DEVICE CHECK CHECK - REMOTE Routine 11/20/2024 5:02 PM EDT Pre-operative cardiovascular examination, ICD in place CARDIAC DEVICE CHECK - REMOTE ALERT - ICD Routine 11/17/2024 12:00 AM EDT CARDIAC DEVICE CHECK CHECK - REMOTE Routine 10/28/2024 10:32 AM EDT Pre-operative cardiovascular examination, ICD in place CARDIAC DEVICE CHECK CHECK - REMOTE Routine 10/21/2024 11:05 AM EDT Pre-operative cardiovascular examination, ICD in place from Last 3 Months Results * GENERATOR CHANGE ICD BIV (12/25/2024 [...] EXAM: Patient was hemodynamically stable. COMPLICATIONS: None. us Jose Angel Rey MD CV ELECTROPHYSIOLOGY PROCEDURES Final Result * Cardiac device check - Remote alert ICD (12/17/2024 12:00 AM EDT) Only the most recent of2 resultswithin the time period is included. Anatomical Region Laterality Modality Other 12/17/2024 us Jose Angel Rye MD CV IMPLANTABLE CARDIAC DEVICE MT OCEDURES Final Result * CARDIAC DEVICE CHECK - REMOTE ALERT - ICD (11/20/2024 5:02 PM EDT) Only the most recent of3 resultswithin the time period is included. us Jose Angel Rey MD CV IMPLANTABLE CARDIAC DEVICE MT OCEDURES Final Result CPACS from Last 3 Months Insurance [employer]ARE [employer] [place] Care Teams General Partner Relationship Specialty Start Date End Date Ren Medrano MD [facility] [place] [address] PCP - General 06/21/22
--- OUTSIDE RECORDS SUMMARY | 2025-01-07 12:30 | XMS_ITS | Clinical Summary ---
Author Organization [facility] Address [address] [place] [address] Care Team Providers Care Certified Pharmacy Tech Name Role Phone Ren Medrano MD Primary Care Provider [phone] Allergies Active Allergy Reactions Criticality Noted Date [...] Assessment & Plan (04/25/2023 11:25 AM EDT): [facility] IIb- EF recovered 50-55% on current echo [...] block) 02/04/2015 Preoperative cardiovascular examination 02/05/20 15 Encounters Date Type Department Care Team Description 01/01/2025 11:40 AM EDT Office Visit [facility] [place] [address] [place] [address] Sujatha Ridley CNP 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); Biventricular implantable cardioverter-defibrill ator (ICD) in situ; Visit for wound check 12/25/2024 3:00 PM EDT - 12/25/2024 4:00 PM EDT Surgery [facility] Heart [facility] V[facility] [address] [place] [address] Jose Angel Rey MD Generator change ICD BiV [[id number]] 12/25/2024 12:41 PM EDT - 12/25/2024 7:32 PM EDT Hospital Encounter [facility] Heart [facility] Vascular [place] [facility] [address] [place] [address] Jose Angel Rey MD NICM (nonischemic cardiomyopathy) (CMS/HCC) Discharge Disposition: Home or Self Care (01) 12/25/2024 Orders Only [facility] Heart [facility] Vascular [place] [facility] [address] [place] [address] Latrice Jewell RN 12/25/2024 Travel 12/17/2024 Orders Only [facility] [address] [place] [address] Jose Angel Rey MD 12/16/2024 Travel 12/09/2024 11:00 AM EDT Office Visit [facility] [address] [place] [address] Jose Angel Rey MD NICM (nonischemic cardiomyopathy) (CMS/HCC) 11/17/2024 3:35 PM EDT Ancillary Procedure [facility] [address] [place] [address] Pre-operative cardiovascular examination, ICD in place 11/17/2024 Orders Only [facility] [address] [place] [address] Laura Pardo MD 10/18/2024 Refill [facility] [address] [place] [address] Ralph Aguilar MD Chronic systolic (congestive) heart failure (CMS/HCC) 10/17/2024 6:00 PM EDT Ancillary Procedure [facility] [address] [place] [address] Pre-operative cardiovascular examination, ICD in place 10/16/2024 8:00 PM EDT Ancillary Procedure [facility] [address] [place] [address] Pre-operative cardiovascular examination, ICD in place from Last 3 Months Family History Medical History Relation Name Comments Stroke Father Relation Name Status Comments Brother Alive Father Mother Social History Tobacco Use Types Packs/Day Years Used Date Smoking Tobacco: Never Smokeless Tobacco: Never Tobacco Cessation:Counseling Given: Not Answered Alcohol Use Standard Drinks/Week Comments Yes 0 (1 standard drink = 0.6 oz pur e alcohol) occasional [place] Safety & Environment Answer Date Rec orded Fear of Current or Ex-Partner Not on file 02 / Emotionally Abused Not on file 09/20/2023 Physically [...] Description 02/17/2025 1:00 PM EDT Ancillary Procedure [place] [address] [place] [address] 03/03/2025 11:15 AM EDT Office Visit [facility] [address] [place] [address] Jose Angel Rey MD [address] [place] [address] Health Maintenance Due Date Last Done Comments Medicare Annual Wellness (AWV) 1945 Depression Screening 1958 Zoster Vaccines (1 of 2) 02/28/1996 Fall Risk Screening 2011 COVID-19 Vaccine ( season) 2024 04/27/2023, 06/02/2021, 09/26/2020, Additional history exists Influenza Vaccine (Season Ended) 2025 04/27/2023, 04/06/2020, 04/08/2019, Additional history exists Adult Tetanus 2034 02/28/2024 Pneumococcal Vaccine: 50+ Years Completed 02/28/2024 HIB Vaccines Aged Out No longer eligi ble based on patient's age to complete this topic HPV Vaccines Aged Out No longer eligi ble based on patient's age to complete this topic IPV Vaccines Aged Out No longer eligi ble based on patient's age to complete this topic Meningococcal B Vaccine Aged Out No l onger eligible based on patient's age to complete this topic Meningococcal Vaccine Aged Out No bin dexter eligible based on patient's age to complete this topic Rotavirus Vaccines Aged Out No longer eligible based on patient's age to complete this topic Medical Devices Implanted Type Area Biomechanical Engineer Device Identifier Shelf Expiration Date Model / Serial / Lot [id number] Amplia Mri Quad Mixing And Dispensing Supervisor-D [id number] Implanted:02/05 (Quantity not on file) MANAGER UNDERWRITING-D ICD [id number] AMPLIA MRI QUAD MANAGER UNDERWRITING-D / [id number] / [place] Xt Hf Quad Mixing And Dispensing Supervisor-D Implanted:Qty: 1 on 12/25/2024 by Jose Angel Rey MD at [facility] MANAGER UNDERWRITING-D ICD Left: Chest Medtronic 02/03/2026 [id number] / [id number] / Procedures Procedure Name Priority Date/Time Associated Diagnosis Comments GENERATOR CHANGE ICD BIV Routine 12/25/2024 6:24 PM EDT NICM (nonischemic cardiomyopathy) (CMS/HCC) CARDIAC DEVICE CHECK - REMOTE ALERT - [...] included. Anatomical Region Laterality Modality Other 12/17/2024 Jose Angel Rey MD CV IMPLANTABLE CARDIAC DEVICE [place] OCEDURES Final Result * CARDIAC DEVICE CHECK - REMOTE ALERT - ICD (11/20/2024 5:02 PM EDT) Only the most recent of3 resultswithin the time period is included. Jose Angel Rey MD CV IMPLANTABLE CARDIAC DEVICE SC OCEDURES Final Result CPACS from Last 3 Months Insurance MEDICARE [employer] [place] Care Teams Certified Pharmacy Tech Relationship Specialty Start Date End Date Ren Medrano MD [address] [place] [address] PCP - General 06/21/22
--- OUTSIDE RECORDS SUMMARY | 2025-01-07 12:31 | XMS_ITS | Clinical Summary ---
Author Organization [facility] Address [address] [place] [address] Care Team Providers Care Casualty Underwriter Name Role Phone Unavailable Primary Care Provider Unavailabl e Social History Tobacco Use Types Packs/Day Years Used Date Smoking Tobacco: Never Assessed Sex and Gender Information Value Date Recorded Sex Assigned at Not on file Legal Sex Male 7:32 PM EDT Gender Identity Not on file Sexual Orientation Not on file Plan of Treatment Not on file
--- OUTSIDE RECORDS SUMMARY | 2025-01-07 12:31 | XMS_ITS | Encounter Summary ---
Author Organization [facility] Address [address] [place] [address] Care Team Providers Care Form Setter Steel Pan Forms Name Role Phone Ren Medrano MD Primary Care Provider [phone] Encounter Details Date Type Department Care Team (Late st Contact Info) Description 12/17/2024 Orders Only [facility] [address] [place] [address] Jose Angel Rey MD [address] [place] [address] Social History Tobacco Use Types Packs/Day Years [...] as of this encounter Plan of Treatment Upcoming Encounters Date Type Department Care Team (Late st Contact Info) Description 02/17/2025 1:00 PM EDT Ancillary Procedure [facility] [address] [place] [address] 03/03/2025 11:15 AM EDT Office Visit [facility] [address] [place] [address] Jose Angel Rey MD [address] [place] [address] documented as of this encounter Procedures Procedure Name Priority Date/Time Associated Diagnosis Comments CARDIAC DEVICE CHECK - REMOTE ALERT - ICD Routine 12/17/2024 12:00 AM EDT documented in this encounter Results * Cardiac device check - Remote alert ICD (12/17/2024 12:00 AM EDT) Anatomical Region Laterality Modality Other 12/17/2024 Jose Angel Rey MD CV IMPLANTABLE CARDIAC DEVICE [place] OCEDURES Final Result documented in this encounter Visit Diagnoses Not on filedocumented in this encounter Care Teams Form Setter Steel Pan Forms Relationship Specialty Start Date End Date Ren Medrano MD [facility] [place] [address] PCP - General 06/21/22 documented as of this encounter
--- OUTSIDE RECORDS SUMMARY | 2025-01-07 12:31 | XMS_ITS | Encounter Summary ---
Author Organization The [facility] Address [address] [place] [address] Care Team Providers Care Strip Machine Operator Name Role Phone Ren Medrano MD Primary Care Provider [phone] Encounter Details Date Type Department Care Team (Late st Contact Info) Description 12/25/[address] [facility] Vascular Lab [address] [place] [address] Latrice Jewell, RN Social History Tobacco Use Types Packs/Day Years Used Date Smoking Tobacco: Never Smokeless Tobacco: Never Alcohol Use Standard Drinks/Week Comments Yes 0 (1 standard drink = 0.6 oz pur e alcohol) occasional [place] Safety & Environment Answer Date Rec orded [...] Description 02/17/2025 1:00 PM EDT Ancillary Procedure [facility] [address] [place] [address] 03/03/2025 11:15 AM EDT Office Visit [facility] [address] [place] [address] Jose Angel Rey MD [address] [place] [address] documented as of this encounter Visit Diagnoses Not on filedocumented in this encounter Care Teams Strip Machine Operator Relationship Specialty Start Date End Date Ren Medrano MD [facility] [place] [address] PCP - General 06/21/22 documented as of this encounter
--- OUTSIDE RECORDS SUMMARY | 2025-01-07 12:31 | XMS_ITS | Encounter Summary ---
Author Organization [facility] Address [address] [place] [address] Care Team Providers Care Computer Architect Name Role Phone Ren Medrano MD Primary Care Provider [phone] Reason for Visit * Reason Comments Med Refill Encounter Details Date Type Department Care Team (Late st Contact Info) Description 11/07/2022 Refill [place] [address] [place] [address] Ralph gAuilar MD [address] [facility] [address] [facility] [place] [address] Chronic systolic (congestive) heart failure (CMS/HCC) Social History Tobacco Use Types Packs/Day Years Used Date Smoking Tobacco: Never Smokeless Tobacco: Never Alcohol Use Standard Drinks/Week Comments Yes 0 (1 standard drink = 0.6 oz pur e alcohol) occasional Sex and Gender Information Value Date Recorded Sex Assigned at Not on file Legal Sex Male 9:19 PM EDT Gender Identity Not on file Sexual Orientation Not on file COVID-19 Exposure Response Date Recorded In the last 10 days, have yo u been in contact with someone who was confirmed or suspected to have Coronavirus/COVID-19? No / Unsure 10/09/2022 1:15 PM EDT documented as of this encounter Plan of Treatment Upcoming Encounters Date Type Department Care Team (Late st Contact Info) Description 02/17/2025 1:00 PM EDT Ancillary Procedure [facility] [address] [place] [address] 03/03/2025 11:15 AM EDT Office Visit [facility] [address] [place] [address] Jose Angel Rey MD [address] [facility] [place] [address] documented as of this encounter Visit Diagnoses Diagnosis Chronic systolic (congestive) heart failure (CMS/HCC) documented in this encounter Care Teams Computer Architect Relationship Specialty Start Date End Date Ren Mderano MD [address] [place] [address] PCP - General 06/21/22 documented as of this encounter
--- OUTSIDE RECORDS SUMMARY | 2025-01-07 12:31 | XMS_ITS | Encounter Summary ---
Author Organization [facility] Address [address] [place] [address] Care Team Providers Care Poly Area Supervisor Name Role Phone Ren Medrano MD Primary Care Provider [phone] Encounter Details Date Type Department Care Team (Latest Contact Info) Description 12/25/2024 Travel Social History Tobacco Use Types Packs/Day Years [...] Description 02/17/2025 1:00 PM EDT Ancillary Procedure [facility] [address] [place] [address] 03/03/2025 11:15 AM EDT Office Visit [facility] [address] [place] [address] Jose Angel Rey MD [address] [place] [address] documented as of this encounter Visit Diagnoses Not on filedocumented in this encounter Care Teams Poly Area Supervisor Relationship Specialty Start Date End Date Ren Medrano MD [facility] [place] [address] PCP - General 06/21/22 documented as of this encounter
--- NOTE | 2025-01-07 12:32 | CT_ITS ---
The [address] [address] Patient Name: INDIO GUEVARA MRN: [id number] date: 1945 Sex: M Assigned Patient Location: CT Current Patient Location: CT Accession/Order Number: [id number] Exam Date: 01/07/2025 13:03 Report Date: 01/07/2025 13:18 At the request of: MORALES COREY NP Procedure: CT lumbar spine wo con CT LUMBAR SPINE WITHOUT CONTRAST WITH RECONSTRUCTIONS COMPARISON: 03/18/2018 and plain films 11/06/2024 CLINICAL DATA: Chronic low back pain with radiation down the right leg. Prior fusion. Spiral axial unenhanced images were obtained through the lumbar spine. Sagittal coronal reconstructions were reviewed. This CT exam was performed using one or more following dose reduction techniques: Automated exposure control, adjustment of the mA and/or kV according to patient size, or use of iterative reconstruction technique. There is osteopenia. Levoscoliotic curvature and minor reversal of the normal lumbar lordosis is seen. Patient is status post laminectomy and fusion with posterior rods and pedicle screws extending from L4 through S1. There is also laminectomy at L3. A dorsal stimulator is also noted, entering the spinal canal at T12-L1 and extending out of the field of view superiorly. There is no significant displacement. No acute compression fractures are identified. There is multilevel disc space narrowing throughout. Endplate spurring and facet hypertrophy are seen. At L1-2, there is annular disc bulging which is asymmetric at the left neural foramen and extending laterally. There is minimal thecal sac effacement related to posterior element hypertrophy. There is moderate to severe left and moderate to moderate right foraminal encroachment. At L2-3, there is disco-osteophytic bulging, greater extending laterally on both sides. There is facet hypertrophy, asymmetric on the left and thickening of ligamentum flavum. There is mild to moderate thecal sac effacement. There is moderate to severe bilateral foraminal impingement. At L3-4, there is disco-osteophytic bulging, slightly asymmetric toward the left. Facet and ligamentous hypertrophy are visualized with slight thecal sac effacement though predominantly related to the posterior element disease. There is also at least moderate narrowing of the neural foramen bilaterally. At L4-5, there is minor endplate spurring. No significant deformation of the thecal sac is seen. There is moderate to severe foraminal impingement related to facet hypertrophy and endplate spurring, greater on the right. At the lumbosacral junction, there is no central stenosis though there is moderate to severe bilateral bony foraminal encroachment. There is degenerative change at the SI joints with partial ankylosis. No paraspinal soft tissue abnormalities are noted. CT/CT lumbar spine wo con IMPRESSION: OSTEOPENIA, SCOLIOSIS AND POSTOPERATIVE CHANGES. MULTILEVEL DISCOVERTEBRAL CHANGES, DESCRIBED. THERE IS SLIGHT PROGRESSION SINCE THE COMPARISON CT. NO ACUTE COMPRESSION FRACTURES. Impression dictated by: Comfort Mittal M.D. 01/07/2025 1:18 PM Dictation Location: [place] [address] Electronically authenticated by: [id number] Y Date: 01/07/2025 13:18
--- OUTSIDE RECORDS SUMMARY | 2025-01-07 12:51 | XMS_ITS | CCD ---
Author Organization [facility] Care Team Providers Care Trim Installer Name Role Phone PHYSICIAN, DEFAULT Unavailable Unavailable [...] Consulting Unavailable KATHIA, Nino Garcia Attending Unavailable KATHIA, Nino Garcia Attending Unavailable ELVIS, EDUARD Referring Unavailable SAVITA, JOSE ANGEL Referring Unavailable SAVITA, JOSE ANGEL Referring Unavailable ELVIS, EDUARD Referring Unavailable ELVIS, EDUARD Referring Unavailable SAVITA, JOSE ANGEL Referring Unavailable SAVITA, JOSE ANGEL Admitting Unavailable SAVITA, JOSE ANGEL Attending Unavailable SAVITA, JOSE ANGEL Referring Unavailable ELVIS, EDUARD Referring Unavailable DAMIANARELIS Attending Unavailable ELVIS, EDUARD Referring Unavailable SAVITA, JOSE ANGEL Attending Unavailable SAVITA, JOSE ANGEL Referring Unavailable ELVIS, EDUARD Referring Unavailable SAVITA, JOSE ANGEL Referring Unavailable SAVITA, JOSE ANGEL Referring Unavailable ELVIS, EDUARD Referring Unavailable ELVIS, EDUARD Referring Unavailable SAVITA, JOSE ANGEL Referring Unavailable SAVITA, JOSE ANGEL Referring Unavailable SAVITA, JOSE ANGEL Referring Unavailable SAVITA, JOSE ANGEL Referring Unavailable SAVITA, JOSE ANGEL Referring Unavailable VALONE REN LOPEZ Primary Care Physician Allergies Allergy Classification Reported Allergen(s) Allergy Type Date of Onset Reaction(s) Facility (3 sources) tamsulosin Drug Allergy 06-30-2016 [facility] Repository (1 source) NO KNOWN DRUG ALLERGIES Drug allergy (disorder) 06-09-2009 [facility] Repository (3 sources) tamsulosin Drug Allergy 07-07-2019 [facility] (3 sources) tamsulosin; Translations: [tamsulosin] Drug Allergy 02-03-2015 Hypotension [facility] Repository Medications Current Medications Medication Drug Class(es) Dates Sig (Normalized) Sig (Original) Acetaminophen / HYDROcodone (3 sources) Opioid Agonist Start: 08-07-2019 End: 08-07-2019 HYDROcodone-acetam inophen (NORCO) 5-325 MG per tablet 1 tablet Start: 07-08-2019 End: 07-08-2019 HYDROcodone-acetaminophen (N ORCO) 5-325 MG per tablet 1 tablet Start: 12-30-2015 [place] 325 mg-5 mg oral tablet 1 tab(s), Oral, q4hr for pain, 40 tab(s), Refill(s) 1 Start Date: 12/30/15 Status: Ordered Quantity: 40.0 Unit: tab(s) Repeat number: 2 acetaminophen 325 mg / oxyCODONE hydrochloride 5 [...] 08/14/2019 Active allopurinol 300 mg oral tablet (4 sources) Xanthine Oxidase Inhibitor Start: 12-28-2015 take 1 tablet by mouth once daily allopurinol (ZYLOPRIM) 300 MG tablet TAKE 1 TABLET BY MOUTH EVERY DAY 3 08/28/2017 Active calcium chloride 0.0014 meq/ml / potassium chloride 0.004 meq/ml / sodium chloride 0.103 meq/ml / sodium lactate 0.028 meq/ml injectable solution (4 sources) Start: 08-07-2019 lactated ringers infusion Start: 07-08-2019 lactated ringe rs infusion carvedilol 25 mg oral tablet (4 sources) alpha-Adrenergic Vidhi, beta-Adrenergic Vidhi Start: 09-05-2017 carvedilol (CORE G) 25 MG tablet Takes 1/4 tab at HS 3 09/05/2017 Active Start: 12-28-2015 take 1 tablet by jamie th once daily carvedilol 25 mg Tab 12.5 mg = 0.5 tab(s), Oral, Daily, if checks BP and is high takes 1 tab, High blood pressure Start Date: 12/28/15 Status: Ordered Repeat number: 1 cephalexin 500 mg oral capsule (2 sources) [...] DULoxetine 60 mg delayed release oral capsule (4 sources) Serotonin and Norepinephrine Reuptake Inhibitor Start: 07-09-2017 take 1 capsule by mouth at bedtime DULoxetine (CYMBALTA) 60 MG extended release capsule TAKE ONE CAPSULE BY MOUTH AT BEDTIME 3 07/09/2017 Active Start: 12-28-2015 take 60 mg by mouth once daily Cymbalta 60 mg, Oral, Daily, Pain - Severe Start Date: 12/28/15 Status: Ordered Repeat number: 1 empagliflozin 10 mg oral tablet (1 source) Sodium-Glucose Cotransporter 2 Inhibitor Start: 08-02-2021 take 1 tablet by mouth once daily in the morning Jardiance 10 mg oral tablet 10 mg = 1 tab(s), Oral, qAM Start Date: 08/02/21 Status: Ordered Repeat number: 1 ezetimibe 10 mg oral tablet (4 sources) Dietary Cholesterol Absorption Inhibitor Start: 12-28-2015 ezetimibe (ZETIA) 10 MG tablet TAKE 1 [...] mg hydroxychloroquine sulfate 200 mg oral tablet (4 sources) Antimalarial, Antirheumatic Agent Start: 04-06-2020 take 1 mg by mouth once daily hydroxychloroquine 200 mg Tab mg tab(s), Oral, Daily, Refills(s) 0 Start Date: 04/06/20 Status: Ordered Repeat number: 1 take 1 tablet by mouth twice genia ly hydroxychloroquine (PLAQUENIL) 200 MG tablet Take 200 mg by mouth 2 times daily 0 Active 10 ml lidocaine hydrochloride 10 mg/ml injection (3 sources) Antiarrhythmic, Amide Local Anesthetic Start: 08-07-2019 End: 08-07-2019 lidocaine PF 1 % injection 1 mL [...] 10 mg montelukast 10 mg oral tablet (4 sources) Leukotriene Receptor Antagonist Start: 12-28-2015 take 1 tablet by mouth once daily in the evening montelukast 10 mg Tab 10 mg = 1 tab(s), Oral, qPM, Allergy symptoms Start Date: 12/28/15 Status: Ordered Repeat number: 1 2 ml ondansetron 2 mg/ml injection (2 sources) Serotonin-3 Receptor Antagonist Start: 08-07-2019 End: 08-07-2019 ondansetron (ZOFRAN) injection 4 mg Start: 07-08-2019 End: 07-08-2019 ondansetron (ZOFRAN) injecti on 4 mg pravastatin sodium 40 mg oral tablet (1 source) HMG-CoA Reductase Inhibitor Start: 12-28-2015 take 1 tablet by mouth once daily pravastatin 40 mg Tab 40 mg = 1 tab(s), Oral, Daily, High cholesterol Start Date: 12/28/15 Status: Ordered Repeat number: 1 pregabalin 200 mg oral capsule (4 sources) Start: 12-28-2015 take 1 capsule by mouth three times daily Lyrica 200 mg Cap 200 mg = 1 cap(s), Oral, TID, Pain - Moderate Start Date: 12/28/15 Status: Ordered Repeat number: 1 take 1 capsule by mouth twice da [place] pregabalin (LYRICA) 200 MG capsule Take 200 mg by mouth 2 times daily. 0 Active rosuvastatin calcium 5 mg oral tablet (1 source) HMG-CoA Reductase Inhibitor Start: 04-06-2020 take 1 mg by mouth once daily rosuvastatin 5 mg Tab mg tab(s), Oral, Daily, Refills(s) 0 Start Date: 04/06/20 Status: Ordered Repeat number: 1 sacubitril 97 mg / valsartan 103 mg oral tablet (4 sources) Angiotensin 2 Receptor Vidhi Start: 04-06-2020 Entresto 97 mg-103 mg oral tablet 1 tab(s), Oral, BID, 60 tab(s), Refill(s) 0 Start Date: 04/06/20 Status: Ordered Quantity: 60.0 Unit: tab(s) Repeat number: 1 sacubitril-valsa rtan (ENTRESTO) 97-103 MG per tablet Entresto 97 mg-103 mg tablet 0 Active 3 ml sodium chloride 9 mg/ml injection (6 sources) Start: 08-07-2019 sodium chlorid e flush 0.9 % injection 10 mL Start: 07-08-2019 sodium chlorid e flush 0.9 % injection 10 mL traMADol hydrochloride 50 mg oral tablet (2 sources) Opioid Agonist Start: 06-20-2019 End: 07-20-2019 take 1 tablet by mouth once daily traMADol (ULTRAM) 50 MG tablet Indications: Spinal stenosis, lumbar region with neurogenic claudication , Lumbar radiculopathy , Lumbar spondylosis Take 1 tablet by mouth daily for 30 days. 30 tablet 0 06/20/2019 07/20/2019 Active Start: 03-18-2019 tramadol Oral, Pain Start Date: 03/18/19 Status: Ordered Repeat number: 1 Completed/Discontinued Medications Medication Drug Class(es) Dates Sig [...] Classification Problem Date Documented Da te Episodic/Chronic Calculus of urinary tract (2 sources) H/O: urinary stone; Translations: [History of calculus of kidney] 03-18-2019 Episodic Conduction disorders (6 sources) Left bundle-branch block, unspecified; Translations: [Encounter for adjustment and management of automatic implantable cardiac defibrillator] Onset: 02-05-2018 Chronic Congestive heart failure; nonhypertensive (15 sources) Left ventricular failure, unspecified; Translations: [Unspecified systolic (congestive) heart failure] Onset: 01-11-2018 Chronic Disorders of lipid metabolism (1 source) Serum cholesterol borderline high 12-28-2015 Chronic Essential hypertension (1 source) Hypertensive disorder 12-28-2015 Chronic Genitourinary symptoms and ill-defined conditions (2 sources) Nocturia; Translations: [Poor stream of urine] 04-06-2020 Episodic Gout and other crystal arthropathies (1 source) Gout 12-28-2015 Chronic Hyperplasia of prostate (5 sources) Benign prostatic hyperplasia with lower urinary tract symptoms; Translations: [Benign prostatic hypertrophy with outflow obstruction] Onset: 09-30-2021 Chronic Inflammatory conditions of male genital organs (1 source) Epididymitis 04-24-2019 Episodic Osteoarthritis (1 source) Unspecified osteoarthritis, unspecified site; Translations: [UNSPECIFIED OSTEOARTHRITIS, UNSPECIFIED SITE] Onset: 02-05-2018 Chronic Other aftercare (1 source) 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; Translations: [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] Onset: 02-05-2018 Episodic Other aftercare (2 sources) Encounter for other specified aftercare; Translations: [Encounter for other specified aftercare] Onset: 01-01-2025 Episodic Other connective tissue disease (1 source) Ganglion of joint 12-28-2015 Episodic Other male genital disorders (1 source) Cyst of epididymis 01-02-2019 Episodic Other male genital disorders (1 source) Pain in testicle 04-24-2019 Episodic Micheline-; endo-; and myocarditis; cardiomyopathy (6 sources) Cardiomyopathy, unspecified; Translations: [Other cardiomyopathies] Onset: 02-05-2018 Chronic Phlebitis; thrombophlebitis and thromboembolism (1 source) Deep venous thrombosis 02-08-2019 Episodic Residual codes; unclassified (1 source) Chronic back pain 12-28-2015 Episodic Screening and history of mental health and substance abuse codes (1 source) Ex-smoker 03-18-2019 Episodic Spondylosis; intervertebral disc disorders; other back problems (2 sources) Dorsalgia, unspecified; Translations: [Radicular pain] Onset: 02-05-2018 12-28-2015 Episodic Unclassified (2 sources) Unknown / UNK(Unknown) Onset: 01-11-2018 Past or Other Problems Problem Classification Problem Date Documented Da te Episodic/Chronic Other nervous system disorders (1 source) Postoperative pain Episodic Residual codes; unclassified (1 source) Pain Episodic Results Test Name Value Interpretation Reference Range Facility Office Visiton 01-01-2025 Follow-up visit [id number] Jose Guevara 1945 M Date Provider Department Center 01/01/2025 [facility] Family History Problem Relation Age of Onset Stroke Father Family Status - Relation Status Age at Mother Father Brother Alive Level of Service:89557 PA POSTOP FOLLOW UP VISIT RELATED TO ORIGINAL PX Normal [facility] HPon 12-25-2024 [facility] Cardiology Note [facility] Reason for follow-up: BiV ICD HPI: Indio Guevara is a 79 y.o. year old with [...] days, cr 1.[address] Long 11/04/2021: Indio Guevara is seen in follow up on NICM, SHF, s/p BiV/ICD. Visit of 01/14/2018: Indio Guevara is seen in follow up after recent admission to [facility] when he developed hypotension after GA for urologic surgery. He has history of non ischemic Cardiomyopathy and systolic heart failure with cath in 2007 at [facility] showing no significant CAD when his EF was 30%. He had a recent stress test at Dr Marcial's office which was negative. He has been maintained on coreg and Entresto maximum dosage for >4 months now. On his recent echocardiogram at [facility] there was reduced EF 30% and possible apical thrombus. A follow up echocardiogram with [facility] on 01/11/2018 showed EF 25% with no [...] underwent BiV/ICD on 02/05/[address] Greer. He has done well. He had redness at the site and was treated with doxycycline to complete 10 days course in 2 days. He has been well. No fever. No chills. No chest pain. NYHA class II. Update 05/22/2018: He is seen in follow up. He is now s/p BiV/ICD on 02/05/[address] Greer. He has done well. He says he felt a difference with improvement in symptoms after the pacer. he can now sleep through the night with no dyspnea. No chest pain. NYHA class II. Echocardiogram 05/20/2018: Global left ventricular systolic function is severely reduced (Visually estimated EF 25%). The left ventricle appears enlarged. Diffuse global hypokinesis. Normal right ventricular systolic function. A ICD lead is seen in the right ventricle. Limited echocardiogram was done to assess left ventricular systolic function Update 01/28/2020: He is seen in follow-up via telemedicine. He has been relatively okay except for low blood pressure lately with systolic numbers in the 90s. He has been symptomatic with that. Dr. Marcial did reduce his Entresto to the 49-51 mg tablet twice daily. He just started taking the new dose today. He also reports that Dr. Marcial did blood testing about a month or [...] Surgical History: Procedure Laterality Date BACK SURGERY (more content not included)... [facility] 12-25-2024 NURSNOTE RN educated pt on d/ c instructions. This included: site care, limited physical [...] off of unit with all of belongings. [facility] NURSNOTE CHG wipes and betadi ne nasal swabs completed. [facility] Orders Onlyon 12-25-2024 Orders Only [id number] Jose Guevara 1945 Date Provider Department Center 12/25/2024 REINA FRAZIER [facility] Family History Problem Relation Age of Onset Stroke Father Family Status - Relation Status Age at Mother Father Brother Alive [facility] Orders Onlyon 12-17-2024 Orders Only [id number] Jose Guevara 1945 Date Provider Department Center 12/17/2024 JOSE ANGEL ABRAMS [facility] Family History Problem Relation Age of Onset Stroke Father Family Status - Relation Status Age at Mother Father Brother Alive [facility] Office Visiton 12-09-2024 Follow-up visit [id number] Jose Guevara 1945 Date Provider Department Center 12/09/2024 JOSE ANGEL ABRAMS [facility] Family History Problem Relation Age of Onset Stroke Father Family Status - Relation Status Age at Mother Father Brother Alive Level of Service:31763 PA OFFICE/OUTPATIENT [facility] 60 MINUTES [facility] Documentationon 11-21-2024 Documentation [id number] Jose Guevara 1945 Date Provider Department Center 11/21/2024 MELYSSA LEON [facility] Family History Problem Relation Age of Onset Stroke Father Family Status - Relation Status Age at Father Reason for Visit and Comments: Congestive Heart Failure [127] Normal [facility] Orders Onlyon 11-17-2024 Orders Only [id number] Jose Guevara 1945 M Date Provider Department Center 11/17/2024 AGUEDA STARKEY [facility] Family History Problem Relation Age of Onset Stroke Father Family Status - Relation Status Age at Father Normal [facility] PROF CHEM 8 (BAS METB)on Anion gap [Moles/Vol] 9.4 mmol/L Normal [facility] Comment on above: Performed By: #### B MP #### [facility] [address] [address] [address] Javy Brian Calcium [Mass/Vol] 9.7 mg/dL Normal 8.5-10.1 [facility] Comment on above: Performed By: #### B MP #### [facility] [address] [address] [address] Javy Brian Chloride [Moles/Vol] 106 mmol/L Normal 98-107 [facility] Comment on above: Performed By: #### B MP #### [facility] [address] [address] [address] Javy Brian CO2 [Moles/Vol] 30.4 mmol/L Normal 21.0-32.0 [facility] Comment on above: Performed By: #### B MP #### [facility] [address] [address] [address] Javy Brian Creatinine [Mass/Vol] 1.46 mg/dL Critically high 0.70-1.30 [facility] Comment on above: Performed By: #### B MP #### [facility] [address] [address] [address] Javy Brian EGFR-AF [place]OU[place] 57 mL/min/1.73m2 Critically low >=60 [facility] Comment on above: Performed By: #### B MP #### [facility] [address] [address] [address] Javy Brian EGFR-NON AF [place] 47 mL/min/1.73m2 Critically low >=60 [facility] Comment on above: Performed By: #### B MP #### [facility] [address] [address] [address] Javy Brian Glucose [Mass/Vol] 99 mg/dL Normal 74-106 [facility] Comment on above: Performed By: #### B MP #### [facility] [address] [address] [address] Javy Brian Potassium [Moles/Vol] 4.8 mmol/L Normal 3.5-5.1 [facility] Comment on above: Performed By: #### B MP #### [facility] [address] [address] [address] Javy Brian Sodium [Moles/Vol] 141 mmol/L Normal 136-145 [facility] Comment on above: Performed By: #### B MP #### [facility] [address] [address] [address] Javy Brian Urea nitrogen [Mass/Vol] 23.0 mg/dL Critically high 7.0-18.0 [facility] Comment on above: Performed By: #### B MP #### [facility] [address] [address] [address] Javy Brian Urea nitrogen/Creatinin e [Mass ratio] 15.8 mg/mg Normal [facility] Comment on above: Performed By: #### B MP #### [facility] [address] [address] [address] Javy Brian PROF CHEM 8 (BAS METB)on Anion gap [Moles/Vol] 10.7 mmol/L Normal [facility] Comment on above: Performed By: #### B MP #### [facility] [address] [address] [address] Javy Brian Calcium [Mass/Vol] 9.7 mg/dL Normal 8.5-10.1 [facility] Comment on above: Performed By: #### B MP #### [facility] [address] [address] [address] Javy Brian Chloride [Moles/Vol] 106 mmol/L Normal 98-107 [facility] Comment on above: Performed By: #### B MP #### [facility] [address] [address] [address] Javy Brian CO2 [Moles/Vol] 29.5 mmol/L Normal 21.0-32.0 [facility] Comment on above: Performed By: #### B MP #### [facility] [address] [address] [address] Javy Brian Creatinine [Mass/Vol] 1.79 mg/dL Critically high 0.70-1.30 [facility] Comment on above: Performed By: #### B MP #### [facility] [address] [address] [address] Javy Brian EGFR-AF [place] 45 mL/min/1.73m2 Critically low >=60 [facility] Comment on above: Performed By: #### B MP #### [facility] [address] [address] [address] Javy Brian EGFR-NON AF [place] 37 mL/min/1.73m2 Critically low >=60 [facility] Comment on above: Performed By: #### B MP #### [facility] [address] [address] [address] Javy Brian Glucose [Mass/Vol] 94 mg/dL Normal 74-106 [facility] Comment on above: Performed By: #### B MP #### [facility] [address] [address] [address] Javy Brian Potassium [Moles/Vol] 5.2 mmol/L Critically high 3.5-5.1 [facility] Comment on above: Performed By: #### B MP #### [facility] [address] [address] [address] Javy Brian Sodium [Moles/Vol] 141 mmol/L Normal 136-145 [facility] Comment on above: Performed By: #### B MP #### [facility] [address] [address] [address] Javy Brian Urea nitrogen [Mass/Vol] 34.0 mg/dL Critically high 7.0-18.0 [facility] Comment on above: Performed By: #### B MP #### [facility] [address] [address] [address] Javy Brian Urea nitrogen/Creatinin e [Mass ratio] 19.0 mg/mg Normal [facility] Comment on above: Performed By: #### B MP #### [facility] [address] [address] [address] Javy Brian PROF CHEM 8 (BAS METB)on Anion gap [Moles/Vol] 12.0 mmol/L Normal [facility] Comment on above: Performed By: #### B MP #### [facility] [address] [address] [address] Javy Brian Calcium [Mass/Vol] 8.9 mg/dL Normal 8.5-10.1 [facility] Comment on above: Performed By: #### B MP #### [facility] [address] [address] [address] Javy Brian Chloride [Moles/Vol] 109 mmol/L Critically high 98-107 [facility] Comment on above: Performed By: #### B MP #### [facility] [address] [address] [address] Javy Brian CO2 [Moles/Vol] 29.0 mmol/L Normal 22.0-30.0 [facility] Comment on above: Performed By: #### B MP #### [facility] [address] [address] [address] Javy Brian Creatinine [Mass/Vol] 1.79 mg/dL Critically high 0.66-1.25 [facility] Comment on above: Performed By: #### B MP #### [facility] [address] [address] [address] Javy Brian EGFR-AF [place] 45 mL/min/1.73m2 Critically low >=60 [facility] Comment on above: Performed By: #### B MP #### [facility] [address] [address] [address] Javy Brian EGFR-NON AF [place] 37 mL/min/1.73m2 Critically low >=60 [facility] Comment on above: Performed By: #### B MP #### [facility] [address] [address] [address] Javy Brian Glucose [Mass/Vol] 92 mg/dL Normal 74-106 [facility] Comment on above: Performed By: #### B MP #### [facility] [address] [address] [address] Javy Brian Potassium [Moles/Vol] 5.0 mmol/L Normal 3.4-5.0 [facility] Comment on above: Performed By: #### B MP #### [facility] [address] [address] [address] Javy Brian Sodium [Moles/Vol] 145 mmol/L Normal 137-145 [facility] Comment on above: Performed By: #### B MP #### [facility] [address] [place] [address] Dr. Javy Brian Urea nitrogen [Mass/Vol] 35.0 mg/dL Critically high 7.0-18.0 [facility] Comment on above: Performed By: #### B MP #### [facility] [address] [place] [address] Dr. Javy Brian Urea nitrogen/Creatinin e [Mass ratio] 19.6 mg/mg Normal [facility] Comment on above: Performed By: #### B MP #### [facility] [address] [place] [address] Dr. Javy Brian CBC AUTO DIFFon 11-04-2021 BASO # 0.0 103/ul Normal 0.0-0.1 [facility] Comment on above: Performed By: #### C BC #### [facility] [address] [place] [address] Dr. Javy Brian Basophils/100 WBC (Bld) 0.7 % Normal 0.2-2.0 [facility] Comment on above: Performed By: #### C BC #### [facility] [address] [place] [address] Dr. Javy Brian EO # 0.2 103/ul Normal 0.0-0.7 [facility] Comment on above: Performed By: #### C BC #### [facility] [address] [place] [address] Dr. Javy Brian Eosinophils/100 WBC (Bld) 3.1 % Normal 0.9-7.0 [facility] Comment on above: Performed By: #### C BC #### [facility] [address] [place] [address] Dr. Javy Brian Erythrocyte distribution width (RBC) [Ratio] 14.3 % Normal 11.0-15.0 [facility] Comment on above: Performed By: #### C BC #### [facility] [address] [place] [address] Dr. Javy Brian Hematocrit (Bld) [Volume fraction] 43.5 % Normal 42.0-54.0 [facility] Comment on above: Performed By: #### C BC #### [facility] [address] [place] [address] Dr. Javy Brian Hemoglobin (Bld) [Mass/Vol] 13.7 g/dL Critically low 14.0-18.0 [facility] Comment on above: Performed By: #### C BC #### [facility] [address] [place] [address] Dr. Javy Brian IG # 0.01 10e3/ul Normal 0.00-0.03 [facility] Comment on above: Performed By: #### C BC #### [facility] [address] [place] [address] Dr. Javy Brian IG % 0.2 % Normal 0.0-0.5 [facility] Comment on above: Performed By: #### C BC #### [facility] [address] [place] [address] Dr. Javy Brian LYMPH # 1.4 103/ul Normal 1.2-3.8 [facility] Comment on above: Performed By: #### C BC #### [facility] [address] [place] [address] Dr. Javy Brian Lymphocytes/100 WBC (Bld) 23.6 % Normal 20.5-60.0 [facility] Comment on above: Performed By: #### C BC #### [facility] [address] [place] [address] Dr. Javy Brian MANUAL DIFF REQ NO Normal [facility] Comment on above: Performed By: #### C BC #### [facility] [address] [place] [address] Dr. Javy Brian MCH (RBC) [Entitic mass] 29.0 pg Normal 25.9-34.0 [facility] Comment on above: Performed By: #### C BC #### [facility] [address] [place] [address] Dr. Javy Brian MCHC (RBC) [Mass/Vol] 31.5 g/dL Normal 29.9-35.2 [facility] Comment on above: Performed By: #### C BC #### [facility] [address] [place] [address] Dr. Javy Brian MCV (RBC) [Entitic vol] 92.0 fL Normal 80.0-94.0 [facility] Comment on above: Performed By: #### C BC #### [facility] [address] [place] [address] Dr. Javy Brian MONO # 0.8 103/ul Normal 0.3-0.8 [facility] Comment on above: Performed By: #### C BC #### [facility] [address] [place] [address] Dr. Javy Brian Monocytes/100 WBC (Bld) 14.1 % Critically high 1.7-12.0 [facility] Comment on above: Performed By: #### C BC #### [facility] [address] [place] [address] Dr. Javy Brian NEUT # 3.4 103/ul Normal 1.4-6.5 [facility] Comment on above: Performed By: #### C BC #### [facility] [address] [place] [address] Dr. Javy Brian Neutrophils/100 WBC (Bld) 58.3 % Normal 43.0-75.0 [facility] Comment on above: Performed By: #### C BC #### [facility] [address] [place] [address] Dr. Javy Brian Platelet mean volume (Bld) [Entitic vol] 9.7 fL Normal 9.5-13.5 [facility] Comment on above: Performed By: #### C BC #### [facility] [address] [address] [address] Javy Brian PLT 113 103/ul Critically low 150-450 [facility] Comment on above: Performed By: #### C BC #### [facility] [address] [place] [address] Dr. Javy Brian RBC 4.73 106/ul Normal 4.70-6.10 [facility] Comment on above: Performed By: #### C BC #### [facility] [address] [place] [address] Dr. Javy Brian WBC 5.8 103/ul Normal 4.0-11.0 [facility] Comment on above: Performed By: #### C BC #### [facility] [address] [place] [address] Dr. Javy Brian PROF CHEM 8 (BAS METB)on Anion gap [Moles/Vol] 13.2 mmol/L Normal [facility] Comment on above: Performed By: #### B MP #### [facility] [address] [place] [address] Dr. Javy Brian Calcium [Mass/Vol] 9.1 mg/dL Normal 8.5-10.1 [facility] Comment on above: Performed By: #### B MP #### [facility] [address] [place] [address] Dr. Javy Brian Chloride [Moles/Vol] 110 mmol/L Critically high 98-107 [facility] Comment on above: Performed By: #### B MP #### [facility] [address] [place] [address] Dr. Javy Brian CO2 [Moles/Vol] 27.6 mmol/L Normal 22.0-30.0 [facility] Comment on above: Performed By: #### B MP #### [facility] [address] [address] [address] Javy Brian Creatinine [Mass/Vol] 1.61 mg/dL Critically high 0.66-1.25 [facility] Comment on above: Performed By: #### B MP #### [facility] [address] [address] [address] Javy Brian EGFR-AF SOUTH [place]OREAN 51 mL/min/1.73m2 Critically low >=60 [facility] Comment on above: Performed By: #### B MP #### [facility] [address] [address] [address] Javy Brian EGFR-NON AF [place]OU[place]OREAN 42 mL/min/1.73m2 Critically low >=60 [facility] Comment on above: Performed By: #### B MP #### [facility] [address] [address] [address] Javy Brian Glucose [Mass/Vol] 94 mg/dL Normal 74-106 [facility] Comment on above: Performed By: #### B MP #### [facility] [address] [address] [address] Javy Brian Potassium [Moles/Vol] 5.8 mmol/L Critically high 3.4-5.0 [facility] Comment on above: Performed By: #### B MP #### [facility] [address] [address] [address] Javy Brian Sodium [Moles/Vol] 145 mmol/L Normal 137-145 [facility] Comment on above: Performed By: #### B MP #### [facility] [address] [address] [address] Javy Brian Urea nitrogen [Mass/Vol] 27.0 mg/dL Critically high 7.0-18.0 [facility] Comment on above: Performed By: #### B MP #### [facility] [address] [address] [address] Javy Brian Urea nitrogen/Creatinin e [Mass ratio] 16.8 mg/mg Normal [facility] Comment on above: Performed By: #### B MP #### [facility] [address] [address] [address] Javy Brian Ambulatory Visit Summaryon 0 10-04-2021 Ambulatory Visit Summary INDIO GUEVARA :1945 Visit Date:10/04/2021 Ambulatory Visit Instructions Your Diagnosis BPH with urinary obstruction Personal history of kidney stones Tests Performed Urnls Dip Stick Auto w/o Microscopy POC 35569 Your Care Team Attending Physician - Randall Heard Jr., MD Primary Care Physician - REN MARCIAL JR, DO This Is Your Medications List Contact prescribing physician if questions or concerns acetaminophen-hydrocodone ([place] 325 mg-5 mg oral tablet) allopurinol (allopurinol [...] Follow-Up Appointments Sunday 10:30 AM EDT With: Randall Heard Jr., MD Where: [facility] Patient Educationon 10-05-19 Patient Education [...] Follow these instructions at home: ? Take [id number] and prescription medicines only as told by [...] You d (more content not included)... Normal [facility] Urology Office/Clinic Noteon 10-04-2021 Urology Office/Clinic Note Chief Complaint Follow up to PSA and KUB This patient is a 76-year-old male with a history of renal calculi and prostatic hyperplasia. He is here today for follow-up visit. He has a recent PSA for review. HPI Staff Ind[place] is a 2 month follow [...] Urnls Dip Stick Auto w/o Microscopy POC 06326 2. Personal history of kidney stones (Z87.442: [...] Tab, 12.5 (more content not included)... Normal [facility] Comment on above: Result Comment: Elec tronically Signed By: Félix Carter MD, Randall Espino\.br\Date and Time Signed: 10/04/21 11:52 EST\.br\Electronically Co-Signed By: Shakira Emery MA\.br\Date and Time Co-Signed: 10/04/21 11:49 EST Lab Reportson 10-03-2021 Lab Reports [id number] Normal [facility] Fluoro For Surgical Procedur esOrdered By: Enrique Haines on 08-08-2019 Impression: Fluorosc opic time 383.0 seconds. Spinal stimulating leads with leads at indeterminate spinal level. If there is clinical concern for desired level location, radiographs lumbar/thoracic spine recommended. [employer] Phone: Patient 1 : 1945 Age: 74 years Gender: Male Order Date: 08/07/2019 2:09 PM. Exam: FLUORO FOR SURGICAL PROCEDURES Number of Views: 2 Indication: Pain Comparison: None Findings: Spinal stimulating leads are noted with leads at indeterminate spinal level. Postoperative changes lower lumbar spine. [employer] Phone: [facility], Chpo Incoming R adiant Results From [employer]acs - 08/08/2019 8:50 AM EST Patient : [...] desired level location, radiographs lumbar/thoracic spine recommended. [employer] Phone: FLUORO FOR SURGICAL PROCEDUR ESon 08-07-2019 [...] Simon Somers MD 08/08/19 Final result Normal [facility] APTTOrdered By: Tone duron on 07-08-2019 aPTT Coag (Bld) [Time] 33.3 s [employer] Phone: Comment on above: Effective 02/13/2019: Please note methodology and/or reference ranges have changed. aPTT - Heparin Therapeutic Range: 74.0 - 106 seconds BASIC METABOLIC PANELOrdered By: Tone Redd on 07-08-2019 Anion gap [Moles/Vol] 13 mmol/L [employer] Phone: Calcium [Mass/Vol] 9.6 mg/dL 8.5 - 9.9 mg/dL [employer] Phone: Chloride [Moles/Vol] 107 mmol/L [employer] Phone: CO2 [Moles/Vol] 22 mmol/L [employer] Phone: Creatinine [Mass/Vol] 1.02 mg/dL 0.7 - 1.2 mg/dL [employer] Phone: GFR >60.0 >60 [employer] Phone: Comment on above: >60 mL/min/1.73m2 EG FR, calc. for ages 18 and older using the MDRD formula (not corrected for weight), is valid for stable renal function. GFR Non- >60.0 >60 [employer] Phone: Comment on above: >60 mL/min/1.73m2 EG FR, calc. for ages 18 and older using the MDRD formula (not corrected for weight), is valid for stable renal function. Glucose [Mass/Vol] 98 mg/dL 70 - 99 mg/dL [employer] Phone: Potassium [Moles/Vol] 4.5 mmol/L [employer] Phone: Sodium [Moles/Vol] 142 mmol/L [employer] Phone: Urea nitrogen [Mass/Vol] 21 mg/dL 8 - 23 mg/dL [employer] Phone: Basic Metabolic Panelon 12-1 0-2018 Anion gap [Moles/Vol] 13 mmol/L Normal 9-15 [facility] Comment on above: Performed By: #### B MP #### [facility] [address] [place] [address] Calcium [Mass/Vol] 9.6 mg/dL Normal 8.5-9.9 [facility] Comment on above: Performed By: #### B MP #### [facility] [address] [place] [address] Chloride [Moles/Vol] 107 mmol/L Normal 95-107 [facility] Comment on above: Performed By: #### B MP #### [facility] [address] [place] [address] CO2 [Moles/Vol] 22 mmol/L Normal 20-31 [facility] Comment on above: Performed By: #### B MP #### [facility] [address] [place] [address] Creatinine [Mass/Vol] 1.02 mg/dL Normal 0.70-1.20 [facility] Comment on above: Performed By: #### B MP #### [facility] [address] [place] [address] GFR/1.73 sq M predicted among blacks MDRD (S/P/Bld) [Vol rate/Area] mL/min/{1.73_m2} Normal >60 [facility] Comment on above: Result Comment: >60 mL/min/1.73m2 EGFR, calc. for ages 18 and older using the MDRD formula (not corrected for weight), is valid for stable renal function. Performed By: #### B MP #### [facility] [address] [place] [address] GFR/1.73 sq M.predicted MDRD (S/P/Bld) [Vol rate/Area] mL/min/{1.73_m2} Normal >60 [facility] Comment on above: Result Comment: >60 mL/min/1.73m2 EGFR, calc. for ages 18 and older using the MDRD formula (not corrected for weight), is valid for stable renal function. Performed By: #### B MP #### [facility] [address] [place] [address] Glucose [Mass/Vol] 98 mg/dL Normal 70-99 [facility] Comment on above: Performed By: #### B MP #### [facility] [address] [place] [address] Potassium [Moles/Vol] 4.5 mmol/L Normal 3.4-4.9 [facility] Comment on above: Performed By: #### B MP #### [facility] [address] [place] [address] Sodium [Moles/Vol] 142 mmol/L Normal 135-144 [facility] Comment on above: Performed By: #### B MP #### [facility] [address] [place] [address] Urea nitrogen [Mass/Vol] 21 mg/dL Normal 8-23 [facility] Comment on above: Performed By: #### B MP #### [facility] [address] [place] [address] CBCOrdered By: Tone bo on 07-08-2019 Erythrocyte distribution width (RBC) [Ratio] 14.0 % 11.5 - 14.5 % [employer] Phone: Hematocrit (Bld) [Volume fraction] 42.1 % 42 - 52 % [employer] Phone: Hemoglobin (Bld) [Mass/Vol] 14.1 g/dL 14 - 18 g/dL [employer] Phone: MCH (RBC) [Entitic mass] 29.9 pg 27 - 31.3 pg [employer] Phone: MCHC 33.6 % 33 - 37 % [employer] Phone: MCV (RBC) [Entitic vol] 89.0 fL 80 - 100 fL [employer] Phone: Platelets (Bld) [#/Vol] 140 10*3/uL 130 - 400 K/uL [employer] Phone: RBC (Bld) [#/Vol] 4.73 10*6/uL [employer] Phone: WBC (Bld) [#/Vol] 5.7 10*3/uL 4.8 - 10.8 K/uL [facility] [employer] Work Phone: CBC With Platelet No Differe ntialon 07-08-2019 Erythrocyte distribution width (RBC) [Ratio] 14.0 % Normal 11.5-14.5 [facility] Comment on above: Performed By: #### C BCND #### [facility] [address] [place] [address] Hematocrit (Bld) [Volume fraction] 42.1 % Normal 42.0-52.0 [facility] Comment on above: Performed By: #### C BCND #### [facility] [address] [place] [address] Hemoglobin (Bld) [Mass/Vol] 14.1 g/dL Normal 14.0-18.0 [facility] Comment on above: Performed By: #### C BCND #### [facility] [address] [place] [address] MCH (RBC) [Entitic mass] 29.9 pg Normal 27.0-31.3 [facility] Comment on above: Performed By: #### C BCND #### [facility] [address] [place] [address] MCHC (RBC) [Mass/Vol] 33.6 % Normal 33.0-37.0 [facility] Comment on above: Performed By: #### C BCND #### [facility] [address] [place] [address] MCV (RBC) [Entitic vol] 89.0 fL Normal 80.0-100.0 [facility] Comment on above: Performed By: #### C BCND #### [facility] [address] [place] [address] Platelets (Bld) [#/Vol] 140 10*3/uL Normal 130-400 [facility] Comment on above: Performed By: #### C BCND #### [facility] [address] [place] [address] RBC (Bld) [#/Vol] 4.73 10*6/uL Normal 4.70-6.10 [facility] Comment on above: Performed By: #### C BCND #### [facility] [address] [place] [address] WBC (Bld) [#/Vol] 5.7 10*3/uL Normal 4.8-10.8 [facility] Comment on above: Performed By: #### C BCND #### [facility] [address] [place] [address] FLUORO FOR SURGICAL PROCEDUR ESon 07-08-2019 FLUORO [...] Simon Somers MD 07/09/19 Final result Normal [facility] PROTIME-INROrdered By: Carlos Redd on 07-08-2019 INR Coag (PPP) [Relative time] 1.1 {INR} [employer] Phone: Comment on above: Warfarin Therapy IN R Therapeutic: 2.0-3.0 With Mechanical Valve: >2.5 Low-intensity Therapeutic Range: 1.5-2.0 Mod-intensity Therapeutic Range: 2.0-3.0 High-intensity Therapeutic Range: 2.5-3.5 HIgh-intensity Therapeutic Range: 3.0-4.0 Common Critical/Alarm Value: 5.0 Common Upper Limit Reported: 10.0 Effective 02/06/2019: Please note methodology and/or reference ranges have changed. PT Coag (PPP) [Time] 14.1 s [employer] Phone: Comment on above: Effective 02/06/19 Please note methodology and/or reference ranges have changed. Partial Thromboplastin Timeo n 07-08-2019 aPTT Coag (Bld) [Time] 33.3 s Normal 24.4-36.8 [facility] Comment on above: Result Comment: Effe ctive 02/13/2019: Please note methodology and/or reference ranges have changed. aPTT - Heparin Therapeutic Range: 74.0 - 106 seconds Performed By: #### P TT #### [facility] [address] [place] [address] Prothrombin Timeon 9 INR Coag (PPP) [Relative time] 1.1 {INR} Normal [facility] Comment on above: Result Comment: Warf jessika Therapy INR Therapeutic: 2.0-3.0 With Mechanical Valve: >2.5 Low-intensity Therapeutic Range: 1.5-2.0 Mod-intensity Therapeutic Range: 2.0-3.0 High-intensity Therapeutic Range: 2.5-3.5 HIgh-intensity Therapeutic Range: 3.0-4.0 Common Critical/Alarm Value: 5.0 Common Upper Limit Reported: 10.0 Effective 02/06/2019: Please note methodology and/or reference ranges have changed. Performed By: #### P T #### [facility] [address] [place] [address] PT Coag (PPP) [Time] 14.1 s Normal 12.3-14.9 [facility] Comment on above: Result Comment: Effe ctive 02/06/19 Please note methodology and/or reference ranges have changed. Performed By: #### P T #### [facility] [address] [place] [address] CHEST AND LATERALon 02-07-20 18 [facility]AL [facility] [place] [address] Patient Name: INDIO GUEVARA : 1945Sex: MAge: Race: WhiteMRN: [id number]. Location: OUTPPatient Status: DVisit #: [id number] Date: 02/06/2018 7:00:00 AMCompleted Date: 02/06/2018 09:23 AMRequesting Provider: SARINA GUZMAN Attending Provider: SAM GREER Report Copy To: Signs & Symptoms: Post Pacemaker/AICD PlacementHistory: Patient history not availableComments: Check Pacemaker/AICD Lead Position, Chest X-ray PA \EANDE\ LAT in Dept ;DO NOT lift affected arm above shoulder. S/P pacemaker/ICD implant. Verify lead placementExam: CHEST AND LATERALAccession #: [id number] CHEST AND LATERAL 02/06/2018 9:23 AM EDT [...] atelectasis Electronically signed by:Florence Vinson. Transcribed by: [email or web address], User Resident: Electronically Signed by: FLORENCE VINSON @ 02/06/2018 02:44 PM Normal [facility] Comment on above: Order Comment: Check Pacemaker/AICD Lead Position, Chest X-ray PA \EANDE\ LAT in Dept ;DO NOT lift affected arm above shoulder. S/P pacemaker/ICD implant. Verify lead placement Cardiovascular Lab Reporton 02-06-2018 Cardiovascular Lab Report [facility] Patient Name: Indio [facility] MR #: [id number] Physician: Sam Groves of [facility] GreerMedicine Service Date: 02/05/2018Division of Birthdate: 6Cardiology Room #: 3CD [id number] [facility]ServicesUnivers[facility] [place], [place] [address]Gwahn Fax Cardiovascular Laboratory ReportINDICATION: Mr. Indio [place] is a 72-year-old gentleman, who I saw inthe [place] office. He sees Dr. Long. He was referred for a CRTDprocedure. He has ejection fraction of 20% to 25%, chronic low ejectionfraction as well, he has a left bundle-branch block with a QRS duration ofapproximately 170 milliseconds.I saw him in the [place] office, went over the procedure, risks andbenefits [...] tethered with 0 silk.At that point, a 10-[place]ese docking station was placed.A long sheath with [...] minutes of fluoroscopy. The device was a [id number], serial number [id number]. The atrial lead is a Medtronic [id number]. The ventricular lead is a Medtronic 6935 [id number]. The leftventricular lead is a Medtronic [id number], serial number [id number].Sensed P and R waves were 3.5 mV with the P waves 7 mV, the R-wave in theRV and 9.4, the LV impedance 627 ohms in the atrium 642, in the [id number] in the coronary sinus. Pacing threshold at [...] 02/05/2018/01:25 P/Sam Greer M.D.Date Trans: 02/06/2018 06:47 [id number]: Ren Marcial D.O. [address] [place], [place] [address] [address] [facility] Vital Signs Date Time Vital Sign Value Performing Clinician Faci lity 08-07-2019 16:25-0500 Diastolic blood pressure 78 mm[Hg] Enrique Haines MD Work Phone: [employer] Work Phone: 08-07-2019 16:25-0500 Heart rate 78 /min Enrique Haines MD Work Phone: [employer] Work Phone: 08-07-2019 16:25-0500 Respiratory rate 20 /min Enrique Haines MD Work Phone: [employer] Work Phone: 08-07-2019 16:25-0500 SaO2% (BldA) [Mass fraction] 95 % Enrique Haines MD Work Phone: [employer] Work Phone: 08-07-2019 16:25-0500 Systolic blood pressure 148 mm[Hg] Enrique Haines MD Work Phone: [employer] Work Phone: 08-07-2019 10:51-0500 Body height 184.2 cm Enrique Haines MD Work Phone: [employer] Work Phone: 08-07-2019 10:51-0500 Body mass index (BMI) [Ratio] 34.78 kg/m2 Enrique Haines MD Work Phone: [employer] Work Phone: 08-07-2019 10:51-0500 Body temperature 97.59 [degF] Enrique Haines MD Work Phone: [employer] Work Phone: 08-07-2019 10:51-0500 Body weight 117.94 kg Enrique Haines MD Work Phone: [employer] Work Phone: 07-08-2019 15:25-0500 Body temperature 98.01 [degF] Enrique Haines MD Work Phone: [employer] Work Phone: 07-08-2019 15:25-0500 Diastolic blood pressure 94 mm[Hg] Enrique Haines MD Work Phone: [employer] Work Phone: 07-08-2019 15:25-0500 Heart rate 78 /min Enrique Haines MD Work Phone: [employer] Work Phone: 07-08-2019 15:25-0500 Respiratory rate 16 /min Enrique Haines MD Work Phone: [employer] Work Phone: 07-08-2019 15:25-0500 SaO2% (BldA) [Mass fraction] 97 % Enrique Haines MD Work Phone: [employer] Work Phone: 07-08-2019 15:25-0500 Systolic blood pressure 158 mm[Hg] Enrique Haines MD Work Phone: [employer] Work Phone: 07-08-2019 11:45-0500 Body height 182.9 cm Enrique Haines MD Work Phone: [employer] Work Phone: 07-08-2019 11:45-0500 Body mass index (BMI) [Ratio] 35.26 kg/m2 Enrique Haines MD Work Phone: [employer] Work Phone: 07-08-2019 11:45-0500 Body weight 117.94 kg Enrique Haines MD Work Phone: [employer] Work Phone: Encounters Encounter Date Encounter Type Care Provider Facility Start: 01-01-2025 End: 01-01-2025 ambulatory [facility] Start: 12-25-2024 End: 12-25-2024 ambulatory [facility] Start: 12-09-2024 End: 12-09-2024 ambulatory [facility] Start: 12-01-2024 End: 12-31-2024 Pre-admission assessment [facility] Start: 11-20-2024 ambulatory [facility] Start: 10-28-2024 ambulatory [facility] Start: 10-21-2024 ambulatory [facility] Start: 09-17-2024 ambulatory [facility] Start: 08-19-2024 ambulatory [facility] Start: 07-31-2024 ambulatory [facility] Start: 07-25-2024 ambulatory [facility] Start: 07-08-2024 End: 07-08-2024 ambulatory [facility] Start: 07-04-2024 ambulatory [facility] Start: 06-23-2024 ambulatory [facility] Start: 06-11-2024 ambulatory [facility] Start: 05-16-2024 ambulatory [facility] Start: 05-08-2024 ambulatory JOSE ANGEL REY [facility] Start: 03-03-2024 ambulatory [facility] Start: 03-03-2024 Encounter for preprocedural cardiovascular examination [facility] Start: 01-25-2024 ambulatory [facility] Start: 01-14-2024 ambulatory [facility] Start: 01-07-2024 ambulatory [facility] Start: 01-22-2023 ambulatory Nino Romoi ty:[facility]ONEL[facility] Con[facility] Start: 07-25-2022 End: 07-26-2022 ambulatory CRISSY KINGSLEY Facility:[facility] Start: 07-13-2022 End: 07-14-[address] CASSANDRA LONG Facility:[facility] Start: 11-11-[address] CASSANDRA LONG Fac ility:[facility] Start: 11-08-2021 End: 11-09-[address] CASSANDRA LONG Facility:[facility] Start: 11-04-2021 End: 11-05-[address] CASSANDRA LONG Facility:[facility] Start: 10-04-2021 ambulatory Nino BAE Facility :[facility] Start: 10-04-2021 End: 10-05-2021 ambulatory Nino BAE Facility:[facility] Start: 09-30-2021 End: 10-01-[address] RANDALL HEARD JR Facility:[facility] Start: 08-07-2019 End: 08-07-2019 Patient encounter procedure [facility] Start: 08-07-2019 End: 08-07-2019 Subsequent hospital visit by physician Enrique Haines MD Work Phone: [facility] Comment on above: Post-op pain (Primar y Dx) Start: 08-07-2019 End: 08-10-2019 Patient encounter procedure [facility] Start: 08-07-2019 End: 08-09-2019 Subsequent hospital visit by physician Enrique Haines MD Work Phone: [facility] Comment on above: Pain Start: 07-08-2019 End: 07-08-2019 Patient encounter procedure ENRIQUE HAINES [facility] Start: 07-08-2019 End: 07-08-2019 Subsequent hospital visit by physician Enrique Haines MD Work Phone: [facility] Start: 07-08-2019 End: 07-11-2019 Patient encounter procedure [facility] [facility] Start: 02-05-2018 End: 02-06-2018 Patient encounter SAM GREER Facility:[facility] Start: 01-11-2018 End: 01-12-2018 Patient encounter PROVIDER UNKNOWN Facility:[facility] Start: 01-10-2018 End: 01-11-2018 Patient encounter DEFAULT PHYSICIAN Facility:[facility] Procedures Date Procedure Procedure Detail Performing Clinician Start: 09-30-[address] CASSANDRA LONG Comment on above: Performed By: #### P SAD #### [facility] [address] [place] [address] Dr. Javy Brian Start: 08-07-2019 INCENTIVE SPIROMETRY RT ENRIQUE YANCY Start: 08-07-2019 DISCHARGE PATIENT ENRIQUE YO O Start: 08-07-2019 FLUORO FOR SURGICAL PROCEDURES ENRIQUE YANCY Start: 08-07-2019 INCENTIVE SPIROMETRY RT ENRIQUE YANCY Start: 08-07-2019 FLUORO FOR SURGICAL PROCEDURES Enrique Haines MD Work Phone: Start: 08-07-2019 INCENTIVE SPIROMETRY [...] pulse oximetry ENRIQUE YANCY Start: 07-08-2019 ASSESS ENIRQUE YANCY Start: 07-08-2019 BEDREST ENRIQUE YANCY Start: [...] calcium total Tone Redd MD Work Phone: Start: 01-09-2018 Exploration of scrotum [facility] Comment on above: W/EXCISION OF SPERMA TIC CORD MASS Start: 05-24-2017 Cystoscopic removal of ureteric stent [facility] Start: 04-04-2017 Cystoscopy [facility] Start: 03-12-2017 Extracorporeal shock wave lithotripsy of calculus of kidney [facility] Start: 01-08-2017 Extracorporeal shock wave lithotripsy of calculus of kidney [facility] Start: 12-30-2015 Left Thumb cyst excision [facility] Start: 04-29-2015 Cystoscopy [facility] Start: 04-12-2015 Extracorporeal shock wave lithotripsy of calculus of kidney [facility] Start: 03-08-2015 Extracorporeal shock wave lithotripsy of calculus of kidney [facility] Start: 02-08-2015 Extracorporeal shock wave lithotripsy of calculus of kidney [facility] H/O Spinal surgery [facility] Herniated structure (morphologic abnormality) [facility] Plan of Treatment Date Care Activity Detail Author Start: 08-22-2019 End: 08-22-2019 Patient encounter procedure 08/22/2019 Office Visit Neurosurgery Enrique Haines MD [address] [place] [address] [id number] [employer] Start: 07-11-2019 End: 07-11-2019 Patient encounter procedure 07/11/2019 Office Visit Neurosurgery Enrique Haines MD [address] [place] [address], [address] [id number] [employer] Start: 03-30-2019 Influenza vaccination Flu vaccine (# 1) [employer] Phone: Start: 01-19-2019 Annual Wellness Visi t (AWV) Annual Wellness Visit (AWV) [employer] Phone: Start: 2011 Pneumococcal 65+ yea rs Vaccine (1 of 1 - PPSV23) Pneumococcal 65+ years Vaccine (1 of 1 - PPSV23) [employer] Phone: Start: 02-28-1996 Colon cancer screen colonoscopy Colon cancer screen colonoscopy [employer] Phone: Start: 02-28-1996 Shingles Vaccine (1 of 2) Lester gles Vaccine (1 of 2) [employer] Phone: Start: 1986 Lipid screen Lipid screen [facility] Work Phone: Start: 1957 DTaP/Tdap/Td vaccine (1 - Tdap) DTaP/Tdap/Td vaccine (1 - Tdap) [employer] Phone: Start: 1946 Hepatitis C screen Hepatitis C scree n [employer] Work Phone: EKG 12 Lead EKG 12 Lead ECG Routine 07/08/2019 12:00 PM EST [employer] Work Phone: Incentive spirometry [facility] Work Phone: Comment on above: Every 2hr while awak e until discontinued starting 07/08/2019 Every 2hr while awak e until discontinued starting 08/07/2019 Initiate Oxygen Ther apy Protocol [employer] Phone: Comment on above: Daily until disconti nued starting 07/08/2019 Daily until disconti nued starting 08/07/2019 Phase I & II - meter ed glucose [employer] Phone: Comment on above: As Needed until disc ontinued starting 07/08/2019 As Needed until disc ontinued starting 08/07/2019 End: 07-08-2019 Pulse Oximetry Spot Check Pulse Oximetry Spot Check Respiratory Care Routine One Time for 1 Occurrences starting 07/08/2019 until 07/08/2019 [employer] Phone: Comment on above: One Time for 1 Occur rences starting 07/08/2019 until 07/08/2019 End: 08-07-2019 Pulse Oximetry Spot Check Pulse Oximetry Spot Check Respiratory Care Routine One Time for 1 Occurrences starting 08/07/2019 until 08/07/2019 [employer] Phone: Comment on above: One Time for 1 Occur rences starting 08/07/2019 until 08/07/2019 Payers Date Payer Category Payer Medicare MEDICARE MEDICAR E PART A AND B xxxxxxxxxxx 2017-Present [phone] [address] [address] [place] [address] xxxxxxxxxxx [id number] 2017 Unknown [employer] M [employer] [address] xxxxxxxxxxxx 2017-Present [phone] [address] [place] [address] xxxxxxxxxxxx [id number] 2017 Medicare [id number] 1959 Medicare [id number] 1959 Self-pay 1959 Unknown [id number] 1946 Unknown [id number] 1946 Unknown [id number] .182 1946 Unknown [id number] .182 1946 Unknown [id number] .182 1946 Unknown [id number] [id number] .593 1946 Unknown [id number] [id number] .593 1946 Unknown [id number] [id number] .593 1946 Unknown [id number] [id number] .593 1946 Unknown [id number] [id number] .593 1946 Unknown [id number] [id number] .593 1946 Unknown [id number] [id number] .727 1946 Unknown [id number] .727 Medicare [id number] Private Health Insurance [id number] Unknown Social History Date Type Detail Facility Start: 07-07-2019 End: 08-08-2019 Tobacco smoking status NHIS Never smoker [employer] Phone: Start: 07-07-2019 End: 08-08-2019 Alcohol intake Current non-drinker of alcohol (finding) [employer] Phone: Sex Assigned At Not on file [employer] Phone: Start: 12-28-2015 Tobacco smoking status Ex-smoker (fi nding) [facility] Comment on above: 40 years ago Sexual Orientation [facility] Sex Assigned At Male [facility] Start: 12-09-2015 Sex Male (finding) [facility] Medical Equipment Procedure Code Equipment Code Equipment Origin al Text Equipment Identifier Dates Lead Trial Compc t Perc 1x8 [id number] Start: 07-08-2019 Stimulator [employer] lis Adaptive Stim Mri - [id number] Start: 08-07-2019 Lead Pain 1x8 60 cm [employer] [id number] Start: 08-07-2019 Lead Pain 1x8 60 cm [employer] [id number] Start: 08-07-2019 Clinical Notes 07-08-2019 to 01-01-2025 Alexandra Cody RN - 08/07/2019 4:19 PM Oralia Nolasco RN - 07/08/2019 3:27 PM Oralia Smith RN - 07/08/2019 3:08 PM Fouzia Talbert RN - 07/07/2019 2:25 PM EST Note Date & Type Note Facility 01-01-2025 Note [place] Cardiology - [facility] Patient in clinic today for a [...] check. Follow-up in clinic in 2-3 months. Arelis Ridley APRN-METALWORKER [facility] Cardiovascular [place] (more content not included)... [facility] 01-01-2025 Note Patient is here toda y in office for a wound check. S/P generator change on 12/25/2024 Patient denies fever or chills, small amount of pain 1/10 occasionally, Redness noted around Tegaderm. Small amount of discharge noted on bandage. Review of Systems Constitutional: Negative. [facility] 12-25-2024 Note BiV-ICD GENERATOR RE PLACEMENT PROCEDURE NOTE DATE OF PROCEDURE: 12/25/2024 PERFORMING [...] weeks. Jose Angel Rey MD Cardiac Electrophysiology [facility] 12-25-2024 Note Patient: Indio blanca Procedure Information Date/Time: 12/25/241499 Procedure: Generator change ICD BiV - PC APPROVED [employer] Location: [facility] MELT ROOM OPERATOR 1 / [facility] (Cath) Providers: Jose Angel Rey MD Clinical information reviewed: Allergies Meds Physical Exam Airway Mallampati: II TM distance: >3 FB Neck ROM: full Cardiovascular Dental Pulmonary Abdominal Anesthesia Plan ASA 3 CSE Anesthetic plan and risks discussed with patient. Use of blood products discussed with patient who. Additional Equipment Requests [facility] 12-25-2024 Note This report has been cancelled. [facility] 12-09-2024 Note [place] Cardiology Note [facility] Reason for follow-up: BiV ICD HPI: Indio Guevara is a 79 y.o. year old with [...] days, cr 1.[address] Long 11/04/2021: Indio Guevara is seen in follow up on NICM, SHF, s/p BiV/ICD. Visit of 01/14/2018: Indio Guevara is seen in follow up after recent admission to [facility] when he developed hypotension after GA for urologic surgery. He has history of non ischemic Cardiomyopathy and systolic heart failure with cath in 2007 at [facility] showing no significant CAD when his EF was 30%. He had a recent stress test at Dr Marcial's office which was negative. He has been maintained on coreg and Entresto maximum dosage for >4 months now. On his recent echocardiogram at [facility] there was reduced EF 30% and [...] underwent BiV/ICD on 02/05/[address] Greer. He has done well. He had redness at the site and was treated with doxycycline to complete 10 days course in 2 days. He has been well. No fever. No chills. No chest pain. NYHA class II. Update 05/22/2018: He is seen in follow up. He is now s/p BiV/ICD on 02/05/[address] Greer. He has done well. He says he felt a difference with improvement in symptoms after the pacer. he can now sleep through the night with no dyspnea. No chest pain. NYHA class II. Echocardiogram 05/20/2018: Global left ventricular systolic function is severely reduced (Visually estimated EF 25%). The left ventricle appears enlarged. Diffuse global hypokinesis. Normal right ventricular systolic function. A ICD lead is seen in the right ventricle. Limited echocardiogram was done to assess left ventricular systolic function Update 01/28/2020: He is seen in follow-up via telemedicine. He has been relatively okay except for low blood pressure lately with systolic numbers in the 90s. He has been symptomatic with that. Dr. Marcial did reduce his Entresto to the 49-51 mg tablet twice daily. He just started taking the new dose today. He also reports that Dr. Marcial did blood testing about a month or [...] Surgical History: Procedure Laterality Date BACK SURGERY (more content not included)... [facility] 11-21-2024 Note Provider called pt a nd son today for concerns of worsening heart failure index noted on device interrogation. Pt states that he feels well, denied any water retention, leg edema, or weight gain. Denied worsening SOB or orthopnea. States he has actually lost about 20-30 pounds on purpose, and remains fairly active. Therefore, message sent to [place] cardiology staff, Dr Long and Dr Rey with update of pt status, device at 3 month battery life and to monitor for upcoming device exchange for battery. Pt voiced understanding of red flag symptoms to call cardiology for- increased SOB, Orthopnea, weight gain, fatigue, or water retention. Melyssa Do [facility] Cardiology Available 7a-3pm via [employer] [phone] [facility] 11-21-2024 Note Copy of [employer] Op tiVol report 11/17/24 Margie Stack PA-C [facility] Cardiovascular Medicine [phone] [facility] 08-07-2019 History of Present illness Narrative disch inst and 2 presc given and explained to pt and son documented in this encounter [employer] Phone: 08-07-2019 Hospital Discharge instructions Alexandra Cody RN - 08/07/2019 Ice packs to the incision Shower on Sunday documented in this encounter [employer] Phone: 07-08-2019 History of Present illness Narrative Dc instructions given to pt and son, verbalized understanding, pt up to bathroom with assist and tolerated well, pt voided, denies nausea, iv dc'd, pt getting dressed Pt eating pretzels and drinking soda, tolerating well [employer]tronic in talking with pt and family Dr haines in room talking with pt and son Jamie Valenzuela RN in OR only magnet is needed [...] notified of above. documented in this encounter [employer] Phone: 07-08-2019 Hospital Discharge instructions Oralia Griffin RN - 07/08/2019 May shower and ambulate. Follow instructions of [employer] documented in this encounter [employer] Phone: Evaluation + Plan note No data available for this section [facility] Evaluation note Diagnosis Post-op pain- Primary Other acute postoperative pain documented in this encounter [employer] Phone: evaluation note* Diagnosis Pain Generalized pain documented in this encounter [employer] Phone: Hospital Discharge instructions No data available for this section [facility] Progress note No data available for this section [facility] Summary Purpose Family History No Family History Records FoundNo Family History Records FoundNo Family History Records FoundNo Family History Records FoundNo Family History Records Found No data available for this section Advance Directives Documents on File Type Date Recorded Patient Personnel Analyst Expl anation Advance Directives and Living Will Power of Steel Rigger Reason for Referral Status Reason Specialty Diagnoses / Procedures Referred By Contact Referred To Contact Pending Review Radiology Diagnoses Pain Procedures Fluoro For Surgical Procedures Enrique Haines MD [id number], [address] [place] [address] Additional Source Comments (unrecognized sect ion and content) No Status Records FoundNo Status Records FoundNo Status Records FoundNo Status Records FoundNo Status Records Found INFORMATION SOURCE (unrecogn ized section and content) DATE CREATED AUTHOR 02/12/2018 [facility] DATE CREATED AUTHOR AUTHOR'S ORGANIZ ATION 08/09/2019 [facility] DATE CREATED AUTHOR AUTHOR'S ORGANIZ ATION 07/28/2022 [facility] DATE CREATED AUTHOR AUTHOR'S ORGANIZ ATION 09/22/2022 [facility] DATE CREATED AUTHOR AUTHOR'S ORGANIZ ATION 01/02/2025 [facility] Reason for Visit (unrecogniz ed section and content) Status Reason Specialty Diagnoses / Procedures Referre d By Contact Referred To Contact Diagnoses RADICULOPATHY, STENOSIS, SPONDYLOSIS Procedures PA NJX DX/THER SBST INTRLMNR CRV/THRC W/IMG GDN D.C.S. (DORSAL COLUMN STIMULATOR) TRIAL 1 HOUR/ 1 C-ARM/ [facility] [employer] (PAT SAME DAY OF SURGERY) Enrique Haines MD [address], [address] [place] [address] [facility] Status Reason Specialty Diagnoses / Procedures Referre d By Contact Referred To Contact Diagnoses Cervical spondylosis with myelopathy and radiculopathy RADICULOPATHY SPONDYLOSIS Procedures PA IMPLANT NEUROSTIM/SHOE DESIGNER PERMANENT DCS (DORSAL COLUMN STIMULATOR)PLACEMENT, 1 HOUR/ 1 C-ARM/ [employer] [facility], *NEED MAGNET FOR PACEMAKER, PAT COMPLETED 07/08/19 Enrique Haines MD [address], [address] [place] [address] [facility] Patient Care team informatio n (unrecognized section and content) Personnel Name: ANIKET LOPEZ DO REN Address: [address] [place] [phone] [employer]: FOR RECORDS PERTAINING TO PATIENTS WHO ARE [...] BE BASED ON THE PRIMARY CLINICAL RECORDS. [employer] provides no warranty or guarantee of the accuracy or completeness of information in this document.
== END 2025-01-07 12:29 | disposition home or self-care (01) ==
LOC: CT 12:28
PROVIDERS: PCP Internal Medicine; Visit Provider Nurse Practitioner
DX: M48.062 Spinal stenosis, lumbar region with neurogenic claudication (principal); M85.88 Other specified disorders of bone density and structure, other site; M51.369 Other intervertebral disc degeneration, lumbar region without mention of lumbar back pain or lower extremity pain
CPT/HCPCS: 72131

== ENCOUNTER 2025-01-21 09:12 | Outpatient (OUT) | payer MEDICARE, OTHER, SELFPAY ==
--- OUTSIDE RECORDS SUMMARY | 2025-01-21 09:33 | XMS_ITS | CCD ---
Author Organization [facility] Care Team Providers Care Hand Clerical Verifier Name Role Phone PHYSICIAN, DEFAULT Unavailable Unavailable [...] Ren DE LA GARZA Primary Care Provider [phone] ETHAN, DR TRUJILLO Admitting Unavailable MOUKAGUERA, DR TRUJILLO Attending Unavailable VALYOON, DR SPRINGER Primary Care Unavailable CHRISTALUKAGUERA, DR TRUJILLO Consulting Unavailable CHRISTALUKAGUERA, DR TRUJILLO Admitting Unavailable MOUKARBEL, DR TRUJILLO [...] sources) tamsulosin Drug Allergy 06-30-2016 [facility] Repository (1 source) NO KNOWN DRUG ALLERGIES Drug allergy (disorder) 06-09-2009 [facility] Rep[facility] (3 sources) tamsulosin Drug Allergy 07-07-2019 [facility] (3 sources) tamsulosin; Translations: [tamsulosin] Drug Allergy 02-03-2015 Hypotension [facility] Repository Medications Current Medications Medication Drug Class(es) Dates Sig (Normalized) Sig (Original) Acetaminophen / HYDROcodone (3 sources) Opioid Agonist Start: 08-07-2019 End: 08-07-2019 HYDROcodone-acetam inophen (NORCO) 5-325 MG per tablet 1 tablet Start: 07-08-2019 End: 07-08-2019 HYDROcodone-acetaminophen (N ORCO) 5-325 MG per tablet 1 tablet Start: 12-30-2015 [place] 325 mg-5 mg oral tablet 1 tab(s), [...] Onset: 02-05-2018 Chronic Other aftercare (1 source) 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; Translations: [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 (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) USE OF ASPIRIN] Onset: 02-05-2018 Episodic [...] Range Facility Office Visiton 01-01-2025 Follow-up visit [id number] Jose Guevara 1945 M Date Provider Department Center 01/01/2025 [facility] Family History Problem Relation Age of Onset Stroke Father Family Status - Relation Status Age at Mother Father Brother Alive Level of Service:60723 UT POSTOP FOLLOW UP VISIT RELATED TO ORIGINAL PX [facility] 12-25-2024 [facility] Cardiology Note [facility] Reason for follow-up: BiV ICD HPI: [...] in follow up after recent admission to [facility] when he developed hypotension after [place] for urologic surgery. 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 He had a recent stress test at Dr Marcial's office which was negative. He has been maintained on coreg and Entresto maximum dosage for >4 months now. On his recent echocardiogram at [facility] there was reduced EF 30% and possible apical thrombus. A follow up echocardiogram with [facility] on 01/11/2018 showed EF 25% with no [...] (more content not included)... Normal [facility] 12-25-2024 NURSNOTE RN educated pt [...] off of unit with all of belongings. [facility] NURSNOTE CHG wipes and betadi ne nasal swabs completed. [facility] Orders Onlyon 12-25-2024 Orders Only [id number] Jose Guevara 1945 Date Provider Department Center 12/25/2024 REINA FRAZIER [facility] VASC LAB [facility] Family History Problem Relation Age of Onset Stroke Father Family Status - Relation Status Age at Mother Father Brother Alive [facility] Orders Onlyon 12-17-2024 Orders Only [id number] Jose Guevara 1945 Date Provider Department Center 12/17/2024 JOSE ANGEL ABRAMS [facility] CARD [facility] Family History Problem Relation Age of Onset Stroke Father Family Status - Relation Status Age at Mother Father Brother Alive [facility] Office Visiton 12-09-2024 Follow-up visit [id number] Jose Guevara 1945 Date Provider Department Center 12/09/2024 JOSE ANGEL ABRAMS [facility] Family History Problem Relation Age of Onset Stroke Father Family Status - Relation Status Age at Mother Father Brother Alive Level of Service:75288 UT OFFICE/OUTPATIENT [facility] 60 MINUTES [facility] Documentationon 11-21-2024 Documentation [id number] Jose Guevara 1945 Date Provider Department Center 11/21/2024 MELYSSA LEON [facility] HEART [facility] Family History Problem Relation Age of Onset Stroke Father Family Status - Relation Status Age at Father Reason for Visit and Comments: Congestive Heart Failure [127] Normal [facility] Orders Onlyon 11-17-2024 Orders Only [id number] Jose Guevara 1945 M Date Provider Department Center 11/17/2024 AGUEDA STARKEY [facility] CARD [facility] Family History Problem Relation Age of Onset Stroke Father Family Status - Relation Status Age at Father Normal [facility] PROF CHEM 8 (BAS METB)on Anion gap [Moles/Vol] 9.4 mmol/L Normal [facility] Comment on above: Performed By: #### B MP #### [facility] [address] [address] [address] Javy Brian Calcium [Mass/Vol] 9.7 mg/dL Normal 8.5-10.1 [facility] Comment on above: Performed By: #### B MP #### [facility] [address] [address] [address] Javy Brian Chloride [Moles/Vol] 106 mmol/L Normal 98-107 [facility] Comment on above: Performed By: #### B MP #### [facility] [address] [address] [address] Javy Brian CO2 [Moles/Vol] 30.4 mmol/L Normal 21.0-32.0 [facility] Comment on above: Performed By: #### B MP #### [facility] [address] [address] [address] Javy Brian Creatinine [Mass/Vol] 1.46 mg/dL Critically high 0.70-1.30 [facility] Comment on above: Performed By: #### B MP #### [facility] [address] [address] [address] Javy Brian EGFR-AF SRI LANKAN 57 mL/min/1.73m2 Critically low >=60 [facility] Comment on above: Performed By: #### B MP #### [facility] [address] [address] [address] Javy Brian EGFR-NON AF SRI LANKAN 47 mL/min/1.73m2 Critically low >=60 [facility] Comment on above: Performed By: #### B MP #### [facility] [address] [address] [address] Javy Brian Glucose [Mass/Vol] 99 mg/dL Normal 74-106 [facility] Comment on above: Performed By: #### B MP #### [facility] [address] [address] [address] Javy Brian Potassium [Moles/Vol] 4.8 mmol/L Normal 3.5-5.1 [facility] Comment on above: Performed By: #### B MP #### [facility] [address] [address] [address] Javy Brian Sodium [Moles/Vol] 141 mmol/L Normal 136-145 [facility] Comment on above: Performed By: #### B MP #### [facility] [address] [address] [address] Javy Brian Urea nitrogen [Mass/Vol] 23.0 mg/dL Critically high 7.0-18.0 [facility] Comment on above: Performed By: #### B MP #### [facility] [address] [address] [address] Javy Brian Urea nitrogen/Creatinin e [Mass ratio] 15.8 mg/mg Normal [facility] Comment on above: Performed By: #### B MP #### [facility] [address] [address] [address] Javy Brian PROF CHEM 8 (BAS METB)on Anion gap [Moles/Vol] 10.7 mmol/L Normal [facility] Comment on above: Performed By: #### B MP #### [facility] [address] [address] [address] Javy Brian Calcium [Mass/Vol] 9.7 mg/dL Normal 8.5-10.1 [facility] Comment on above: Performed By: #### B MP #### [facility] [address] [address] [address] Javy Brian Chloride [Moles/Vol] 106 mmol/L Normal 98-107 [facility] Comment on above: Performed By: #### B MP #### [facility] [address] [address] [address] Javy Brian CO2 [Moles/Vol] 29.5 mmol/L Normal 21.0-32.0 [facility] Comment on above: Performed By: #### B MP #### [facility] [address] [address] [address] Javy Brian Creatinine [Mass/Vol] 1.79 mg/dL Critically high 0.70-1.30 [facility] Comment on above: Performed By: #### B MP #### [facility] [address] [address] [address] Javy Brian EGFR-AF SRI LANKAN 45 mL/min/1.73m2 Critically low >=60 [facility] Comment on above: Performed By: #### B MP #### [facility] [address] [address] [address] Javy Brian EGFR-NON AF SRI LANKAN 37 mL/min/1.73m2 Critically low >=60 [facility] Comment on above: Performed By: #### B MP #### [facility] [address] [address] [address] Javy Brian Glucose [Mass/Vol] 94 mg/dL Normal 74-106 [facility] Comment on above: Performed By: #### B MP #### [facility] [address] [address] [address] Javy Brian Potassium [Moles/Vol] 5.2 mmol/L Critically high 3.5-5.1 [facility] Comment on above: Performed By: #### B MP #### [facility] [address] [address] [address] Javy Brian Sodium [Moles/Vol] 141 mmol/L Normal 136-145 [facility] Comment on above: Performed By: #### B MP #### [facility] [address] [address] [address] Javy Brian Urea nitrogen [Mass/Vol] 34.0 mg/dL Critically high 7.0-18.0 [facility] Comment on above: Performed By: #### B MP #### [facility] [address] [address] [address] Javy Brian Urea nitrogen/Creatinin e [Mass ratio] 19.0 mg/mg Normal [facility] Comment on above: Performed By: #### B MP #### [facility] [address] [address] [address] Javy Brian PROF CHEM 8 (BAS METB)on Anion gap [Moles/Vol] 12.0 mmol/L Normal [facility] Comment on above: Performed By: #### B MP #### [facility] [address] [address] [address] Javy Brian Calcium [Mass/Vol] 8.9 mg/dL Normal 8.5-10.1 [facility] Comment on above: Performed By: #### B MP #### [facility] [address] [address] [address] Javy Brian Chloride [Moles/Vol] 109 mmol/L Critically high 98-107 [facility] Comment on above: Performed By: #### B MP #### [facility] [address] [address] [address] Javy Brian CO2 [Moles/Vol] 29.0 mmol/L Normal 22.0-30.0 [facility] Comment on above: Performed By: #### B MP #### [facility] [address] [address] [address] Javy Brian Creatinine [Mass/Vol] 1.79 mg/dL Critically high 0.66-1.25 [facility] Comment on above: Performed By: #### B MP #### [facility] [address] [address] [address] Javy Brian EGFR-AF SRI LANKAN 45 mL/min/1.73m2 Critically low >=60 [facility] Comment on above: Performed By: #### B MP #### [facility] [address] [address] [address] Javy Brian EGFR-NON AF SRI LANKAN 37 mL/min/1.73m2 Critically low >=60 [facility] Comment on above: Performed By: #### B MP #### [facility] [address] [address] [address] Javy Brian Glucose [Mass/Vol] 92 mg/dL Normal 74-106 [facility] Comment on above: Performed By: #### B MP #### [facility] [address] [address] [address] Javy Brian Potassium [Moles/Vol] 5.0 mmol/L Normal 3.4-5.0 [facility] Comment on above: Performed By: #### B MP #### [facility] [address] [address] [address] Javy Brian Sodium [Moles/Vol] 145 mmol/L Normal 137-145 [facility] Comment on above: Performed By: #### B MP #### [facility] [address] [place] [address] Dr. Javy Brian Urea nitrogen [Mass/Vol] 35.0 mg/dL Critically high 7.0-18.0 [facility] Comment on above: Performed By: #### B MP #### [facility] [address] [place] [address] Dr. Javy Brian Urea nitrogen/Creatinin e [Mass ratio] 19.6 mg/mg Normal [facility] Comment on above: Performed By: #### B MP #### [facility] [address] [place] [address] Dr. Javy Brian CBC AUTO DIFFon 11-04-2021 BASO # 0.0 103/ul Normal 0.0-0.1 [facility] Comment on above: Performed By: #### C BC #### [facility] [address] [place] [address] Dr. Javy Brian Basophils/100 WBC (Bld) 0.7 % Normal 0.2-2.0 [facility] Comment on above: Performed By: #### C BC #### [facility] [address] [place] [address] Dr. Javy Brian EO # 0.2 103/ul Normal 0.0-0.7 [facility] Comment on above: Performed By: #### C BC #### [facility] [address] [place] [address] Dr. Javy Brian Eosinophils/100 WBC (Bld) 3.1 % Normal 0.9-7.0 [facility] Comment on above: Performed By: #### C BC #### [facility] [address] [place] [address] Dr. Javy Brian Erythrocyte distribution width (RBC) [Ratio] 14.3 % Normal 11.0-15.0 [facility] Comment on above: Performed By: #### C BC #### [facility] [address] [place] [address] Dr. Javy Brian Hematocrit (Bld) [Volume fraction] 43.5 % Normal 42.0-54.0 [facility] Comment on above: Performed By: #### C BC #### [facility] [address] [place] [address] Dr. Javy Brian Hemoglobin (Bld) [Mass/Vol] 13.7 g/dL Critically low 14.0-18.0 [facility] Comment on above: Performed By: #### C BC #### [facility] [address] [place] [address] Dr. Javy Brian IG # 0.01 10e3/ul Normal 0.00-0.03 [facility] Comment on above: Performed By: #### C BC #### [facility] [address] [place] [address] Dr. Javy Brian IG % 0.2 % Normal 0.0-0.5 [facility] Comment on above: Performed By: #### C BC #### [facility] [address] [place] [address] Dr. Javy Brian LYMPH # 1.4 103/ul Normal 1.2-3.8 [facility] Comment on above: Performed By: #### C BC #### [facility] [address] [place] [address] Dr. Javy Brian Lymphocytes/100 WBC (Bld) 23.6 % Normal 20.5-60.0 [facility] Comment on above: Performed By: #### C BC #### [facility] [address] [place] [address] Dr. Javy Brian MANUAL DIFF REQ NO Normal [facility] Comment on above: Performed By: #### C BC #### [facility] [address] [place] [address] Dr. Javy Brian MCH (RBC) [Entitic mass] 29.0 pg Normal 25.9-34.0 [facility] Comment on above: Performed By: #### C BC #### [facility] [address] [place] [address] Dr. Javy Brian MCHC (RBC) [Mass/Vol] 31.5 g/dL Normal 29.9-35.2 [facility] Comment on above: Performed By: #### C BC #### [facility] [address] [place] [address] Dr. Javy Brian MCV (RBC) [Entitic vol] 92.0 fL Normal 80.0-94.0 [facility] Comment on above: Performed By: #### C BC #### [facility] [address] [place] [address] Dr. Javy Brian MONO # 0.8 103/ul Normal 0.3-0.8 [facility] Comment on above: Performed By: #### C BC #### [facility] [address] [place] [address] Dr. Javy Brian Monocytes/100 WBC (Bld) 14.1 % Critically high 1.7-12.0 [facility] Comment on above: Performed By: #### C BC #### [facility] [address] [place] [address] Dr. Javy Brian NEUT # 3.4 103/ul Normal 1.4-6.5 [facility] Comment on above: Performed By: #### C BC #### [facility] [address] [place] [address] Dr. Javy Brian Neutrophils/100 WBC (Bld) 58.3 % Normal 43.0-75.0 [facility] Comment on above: Performed By: #### C BC #### [facility] [address] [place] [address] Dr. Javy Brian Platelet mean volume (Bld) [Entitic vol] 9.7 fL Normal 9.5-13.5 [facility] Comment on above: Performed By: #### C BC #### [facility] [address] [address] [address] Javy Brain PLT 113 103/ul Critically low 150-450 [facility] Comment on above: Performed By: #### C BC #### [facility] [address] [place] [address] Dr. Javy Brian RBC 4.73 106/ul Normal 4.70-6.10 [facility] Comment on above: Performed By: #### C BC #### [facility] [address] [place] [address] Dr. Javy Brian WBC 5.8 103/ul Normal 4.0-11.0 [facility] Comment on above: Performed By: #### C BC #### [facility] [address] [place] [address] Dr. Javy Brian PROF CHEM 8 (BAS METB)on Anion gap [Moles/Vol] 13.2 mmol/L Normal [facility] Comment on above: Performed By: #### B MP #### [facility] [address] [place] [address] Dr. Javy Brian Calcium [Mass/Vol] 9.1 mg/dL Normal 8.5-10.1 [facility] Comment on above: Performed By: #### B MP #### [facility] [address] [place] [address] Dr. Javy Brian Chloride [Moles/Vol] 110 mmol/L Critically high 98-107 [facility] Comment on above: Performed By: #### B MP #### [facility] [address] [place] [address] Dr. Javy Brian CO2 [Moles/Vol] 27.6 mmol/L Normal 22.0-30.0 [facility] Comment on above: Performed By: #### B MP #### [facility] [address] [address] [address] Javy Brian Creatinine [Mass/Vol] 1.61 mg/dL Critically high 0.66-1.25 [facility] Comment on above: Performed By: #### B MP #### [facility] [address] [address] [address] Javy Brian EGFR-AF SRI LANKAN 51 mL/min/1.73m2 Critically low >=60 [facility] Comment on above: Performed By: #### B MP #### [facility] [address] [address] [address] Javy Brian EGFR-NON AF SRI LANKAN 42 mL/min/1.73m2 Critically low >=60 [facility] Comment on above: Performed By: #### B MP #### [facility] [address] [address] [address] Javy Brian Glucose [Mass/Vol] 94 mg/dL Normal 74-106 [facility] Comment on above: Performed By: #### B MP #### [facility] [address] [address] [address] Javy Brian Potassium [Moles/Vol] 5.8 mmol/L Critically high 3.4-5.0 [facility] Comment on above: Performed By: #### B MP #### [facility] [address] [address] [address] Javy Brian Sodium [Moles/Vol] 145 mmol/L Normal 137-145 [facility] Comment on above: Performed By: #### B MP #### [facility] [address] [address] [address] Javy Brian Urea nitrogen [Mass/Vol] 27.0 mg/dL Critically high 7.0-18.0 [facility] Comment on above: Performed By: #### B MP #### [facility] [address] [address] [address] Javy Brian Urea nitrogen/Creatinin e [Mass ratio] 16.8 mg/mg Normal [facility] Comment on above: Performed By: #### B MP #### [facility] [address] [address] [address] Javy Brian Ambulatory Visit Summaryon 0 10-04-2021 Ambulatory Visit Summary INDIO GUEVARA :1945 Visit Date:10/04/2021 Ambulatory Visit Instructions Your Diagnosis BPH with urinary obstruction Personal history of kidney stones Tests Performed Urnls Dip Stick Auto w/o Microscopy POC 32991 Your Care Team Attending Physician - Randall Heard Jr., MD Primary Care Physician - REN MARCIAL JR, DO This Is Your Medications List Contact prescribing physician if questions or concerns acetaminophen-hydrocodone ([place] 325 mg-5 mg oral tablet) allopurinol (allopurinol [...] Heard Jr., MD Where: [facility] Patient Educationon 10-05-19 Patient Education Urology Benign [...] Follow these instructions at home: ? Take rern-nqo-soyojol and prescription medicines only as told by [...] d (more content not included)... Normal [facility] Urology Office/Clinic Noteon 10-04-2021 Urology Office/Clinic [...] Urnls Dip Stick Auto w/o Microscopy POC 79702 2. Personal history of kidney stones (Z87.442: [...] Tab, 12.5 (more content not included)... Normal [facility] Comment on above: Result Comment: Elec tronically Signed By: Félix Carter MD, Randall Espino\.br\Date and Time Signed: 10/04/21 11:52 EST\.br\Electronically Co-Signed By: Shakira Emery MA\.br\Date and Time Co-Signed: 10/04/21 11:49 EST Lab Reportson 10-03-2021 Lab Reports [id number] Normal [facility] Fluoro For Surgical Procedur esOrdered By: Enrique Haines on 08-08-2019 Impression: Fluorosc opic time 383.0 seconds. Spinal stimulating leads with leads at indeterminate spinal level. If there is clinical concern for desired level location, radiographs lumbar/thoracic spine recommended. [facility] Phone: Patient 1 : 1945 Age: 74 years Gender: Male Order Date: 08/07/2019 2:09 PM. Exam: FLUORO FOR SURGICAL PROCEDURES Number of Views: 2 Indication: Pain Comparison: None Findings: Spinal stimulating leads are noted with leads at indeterminate spinal level. Postoperative changes lower lumbar spine. [facility] Phone: [facility], [facility] Incoming R adiant Results [...] desired level location, radiographs lumbar/thoracic spine recommended. [facility] Phone: FLUORO FOR SURGICAL PROCEDUR ESon 08-07-2019 [...] Simon Somers MD 08/08/[address] [facility] APTTOrdered By: Tone duron on 07-08-2019 aPTT Coag (Bld) [Time] 33.3 s [facility] Phone: Comment on above: Effective 02/13/2019: Please note methodology and/or reference ranges have changed. aPTT - Heparin Therapeutic Range: 74.0 - 106 seconds BASIC METABOLIC PANELOrdered By: Tone Redd on 07-08-2019 Anion gap [Moles/Vol] 13 mmol/L [facility] Phone: Calcium [Mass/Vol] 9.6 mg/dL 8.5 - 9.9 mg/dL [facility] Phone: Chloride [Moles/Vol] 107 mmol/L [facility] Phone: CO2 [Moles/Vol] 22 mmol/L [facility] Phone: Creatinine [Mass/Vol] 1.02 mg/dL 0.7 - 1.2 mg/dL [facility] Phone: GFR >60.0 >60 [facility] Phone: Comment on above: >60 mL/min/1.73m2 EG FR, calc. for ages 18 and older using the MDRD formula (not corrected for weight), is valid for stable renal function. GFR Non- >60.0 >60 [facility] Phone: Comment on above: >60 mL/min/1.73m2 EG FR, calc. for ages 18 and older using the MDRD formula (not corrected for weight), is valid for stable renal function. Glucose [Mass/Vol] 98 mg/dL 70 - 99 mg/dL [facility] Phone: Potassium [Moles/Vol] 4.5 mmol/L [facility] Phone: Sodium [Moles/Vol] 142 mmol/L [facility] Phone: Urea nitrogen [Mass/Vol] 21 mg/dL 8 - 23 mg/dL [facility] Phone: Basic Metabolic Panelon 12-1 0-2018 Anion gap [Moles/Vol] 13 mmol/L Normal 9-15 [facility] Comment on above: Performed By: #### B MP #### [facility] [address] [place] [address] Calcium [Mass/Vol] 9.6 mg/dL Normal 8.5-9.9 [facility] Comment on above: Performed By: #### B MP #### [facility] [address] [place] [address] Chloride [Moles/Vol] 107 mmol/L Normal 95-107 [facility] Comment on above: Performed By: #### B MP #### [facility] [address] [place] [address] CO2 [Moles/Vol] 22 mmol/L Normal 20-31 [facility] Comment on above: Performed By: #### B MP #### [facility] [address] [place] [address] Creatinine [Mass/Vol] 1.02 mg/dL Normal 0.70-1.20 [facility] Comment on above: Performed By: #### B MP #### [facility] [address] [place] [address] GFR/1.73 sq M predicted among blacks MDRD (S/P/Bld) [Vol rate/Area] mL/min/{1.73_m2} Normal >60 [facility] Comment on above: Result Comment: >60 mL/min/1.73m2 EGFR, calc. for ages 18 and older using the MDRD formula (not corrected for weight), is valid for stable renal function. Performed By: #### B MP #### [facility] [address] [place] [address] GFR/1.73 sq M.predicted MDRD (S/P/Bld) [Vol rate/Area] mL/min/{1.73_m2} Normal >60 [facility] Comment on above: Result Comment: >60 mL/min/1.73m2 EGFR, calc. for ages 18 and older using the MDRD formula (not corrected for weight), is valid for stable renal function. Performed By: #### B MP #### [facility] [address] [place] [address] Glucose [Mass/Vol] 98 mg/dL Normal 70-99 [facility] Comment on above: Performed By: #### B MP #### [facility] [address] [place] [address] Potassium [Moles/Vol] 4.5 mmol/L Normal 3.4-4.9 [facility] Comment on above: Performed By: #### B MP #### [facility] [address] [place] [address] Sodium [Moles/Vol] 142 mmol/L Normal 135-144 [facility] Comment on above: Performed By: #### B MP #### [facility] [address] [place] [address] Urea nitrogen [Mass/Vol] 21 mg/dL Normal 8-23 [facility] Comment on above: Performed By: #### B MP #### [facility] [address] [place] [address] CBCOrdered By: Tone bo on 07-08-2019 Erythrocyte distribution width (RBC) [Ratio] 14.0 % 11.5 - 14.5 % [facility] Phone: Hematocrit (Bld) [Volume fraction] 42.1 % 42 - 52 % [facility] Phone: Hemoglobin (Bld) [Mass/Vol] 14.1 g/dL 14 - 18 g/dL [facility] Phone: MCH (RBC) [Entitic mass] 29.9 pg 27 - 31.3 pg [facility] Phone: MCHC 33.6 % 33 - 37 % [facility] Phone: MCV (RBC) [Entitic vol] 89.0 fL 80 - 100 fL [facility] Phone: Platelets (Bld) [#/Vol] 140 10*3/uL 130 - 400 K/uL [facility] Phone: RBC (Bld) [#/Vol] 4.73 10*6/uL [facility] Phone: WBC (Bld) [#/Vol] 5.7 10*3/uL 4.8 - 10.8 K/uL [facility] [email or web address] Work Phone: CBC With Platelet No Differe ntialon 07-08-2019 Erythrocyte distribution width (RBC) [Ratio] 14.0 % Normal 11.5-14.5 [facility] Comment on above: Performed By: #### C BCND #### [facility] [address] [place] [address] Hematocrit (Bld) [Volume fraction] 42.1 % Normal 42.0-52.0 [facility] Comment on above: Performed By: #### C BCND #### [facility] [address] [place] [address] Hemoglobin (Bld) [Mass/Vol] 14.1 g/dL Normal 14.0-18.0 [facility] Comment on above: Performed By: #### C BCND #### [facility] [address] [place] [address] MCH (RBC) [Entitic mass] 29.9 pg Normal 27.0-31.3 [facility] Comment on above: Performed By: #### C BCND #### [facility] [address] [place] [address] MCHC (RBC) [Mass/Vol] 33.6 % Normal 33.0-37.0 [facility] Comment on above: Performed By: #### C BCND #### [facility] [address] [place] [address] MCV (RBC) [Entitic vol] 89.0 fL Normal 80.0-100.0 [facility] Comment on above: Performed By: #### C BCND #### [facility] [address] [place] [address] Platelets (Bld) [#/Vol] 140 10*3/uL Normal 130-400 [facility] Comment on above: Performed By: #### C BCND #### [facility] [address] [place] [address] RBC (Bld) [#/Vol] 4.73 10*6/uL Normal 4.70-6.10 [facility] Comment on above: Performed By: #### C BCND #### [facility] [address] [place] [address] WBC (Bld) [#/Vol] 5.7 10*3/uL Normal 4.8-10.8 [facility] Comment on above: Performed By: #### C BCND #### [facility] [address] [place] [address] FLUORO FOR SURGICAL PROCEDUR ESon 07-08-2019 FLUORO [...] Simon Somers MD 07/09/[address] [facility] PROTIME-INROrdered By: Carlos Redd on 07-08-2019 INR Coag (PPP) [Relative time] 1.1 {INR} [facility] Phone: Comment on above: Warfarin Therapy IN R Therapeutic: 2.0-3.0 With Mechanical Valve: >2.5 Low-intensity Therapeutic Range: 1.5-2.0 Mod-intensity Therapeutic Range: 2.0-3.0 High-intensity Therapeutic Range: 2.5-3.5 HIgh-intensity Therapeutic Range: 3.0-4.0 Common Critical/Alarm Value: 5.0 Common Upper Limit Reported: 10.0 Effective 02/06/2019: Please note methodology and/or reference ranges have changed. PT Coag (PPP) [Time] 14.1 s [facility] Phone: Comment on above: Effective 02/06/19 Please note methodology and/or reference ranges have changed. Partial Thromboplastin Timeo n 07-08-2019 aPTT Coag (Bld) [Time] 33.3 s Normal 24.4-36.8 [facility] Comment on above: Result Comment: Effe ctive 02/13/2019: Please note methodology and/or reference ranges have changed. aPTT - Heparin Therapeutic Range: 74.0 - 106 seconds Performed By: #### P TT #### [facility] [address] [place] [address] Prothrombin Timeon 9 INR Coag (PPP) [Relative time] 1.1 {INR} Normal [facility] Comment on above: Result Comment: Warf jessika Therapy INR Therapeutic: 2.0-3.0 With Mechanical Valve: >2.5 Low-intensity Therapeutic Range: 1.5-2.0 Mod-intensity Therapeutic Range: 2.0-3.0 High-intensity Therapeutic Range: 2.5-3.5 HIgh-intensity Therapeutic Range: 3.0-4.0 Common Critical/Alarm Value: 5.0 Common Upper Limit Reported: 10.0 Effective 02/06/2019: Please note methodology and/or reference ranges have changed. Performed By: #### P T #### [facility] [address] [place] [address] PT Coag (PPP) [Time] 14.1 s Normal 12.3-14.9 [facility] Comment on above: Result Comment: Effe ctive 02/06/19 Please note methodology and/or reference ranges have changed. Performed By: #### P T #### [facility] [address] [place] [address] CHEST AND LATERALon 02-07-20 18 [facility]ERAL [facility] [address] [place] [address] Patient Name: INDIO GUEVARA : 1945Sex: MAge: Race: WhiteMRN: [id number]. Location: OUTPPatient Status: DVisit #: [id number] Date: 02/06/2018 7:00:00 AMCompleted Date: 02/06/2018 09:23 AMRequesting Provider: SARINA GUZMAN Attending Provider: SAM GREER Report Copy To: Signs & Symptoms: Post Pacemaker/AICD PlacementHistory: Patient history not availableComments: Check Pacemaker/AICD Lead Position, Chest X-ray PA \EANDE\ LAT in Dept ;DO NOT lift affected arm above shoulder. S/P pacemaker/ICD implant. Verify lead placementExam: CHEST AND LATERALAccession #: [id number] CHEST AND LATERAL 02/06/2018 9:23 AM EDT [...] atelectasis Electronically signed by:Florence Vinson. Transcribed by: [email or web address], User Resident: Electronically Signed by: FLORENCE VINSON @ 02/06/2018 02:44 PM Normal [facility] Comment on above: Order Comment: Check Pacemaker/AICD Lead Position, Chest X-ray PA \EANDE\ LAT in Dept ;DO NOT lift affected arm above shoulder. S/P pacemaker/ICD implant. Verify lead placement Cardiovascular Lab Reporton 02-06-2018 Cardiovascular Lab Report [facility] Patient Name: Indio Guevara [facility] MR #: [id number] Physician: Sam Groves of St[facility] GreerMedicine Service Date: 02/05/2018Division of Birthdate: 6Cardiology Room #: 3CD [id number] CardiovascularServicesUniversit [facility] [address] [place], [place] [address]Iaggv Fax Cardiovascular Laboratory ReportINDICATION: Mr. Indio G[place]vara is a 72-year-old gentleman, who I saw inthe [place] office. He sees Dr. Long. He was referred for a CRTDprocedure. He has ejection fraction of 20% to 25%, chronic low ejectionfraction as well, he has a left bundle-branch block with a QRS duration ofapproximately 170 milliseconds.I saw him in the [place] office, went over the procedure, risks andbenefits [...] minutes of fluoroscopy. The device was a [id number], serial number [id number]. The atrial lead is a Medtronic [id number]. The ventricular lead is a Medtronic [id number] [id number]. The leftventricular lead is a Medtronic [id number], serial number [id number].Sensed P and R waves were 3.5 mV with the P waves 7 mV, the R-wave in theRV and 9.4, the LV impedance 627 ohms in the atrium 642, in the paundnyxa604 in the coronary sinus. Pacing threshold at [...] 02/05/2018/01:25 P/Sam Greer M.D.Date Trans: 02/06/2018 06:47 [id number]: Ren Marcial D.O. [address] [place], [place] [address]My[facility] [address] [facility] Vital Signs Date Time Vital Sign Value Performing Clinician Faci lity 08-07-2019 16:25-0500 Diastolic blood pressure 78 mm[Hg] Enrique Haines MD Work Phone: [facility] Work Phone: 08-07-2019 16:25-0500 Heart rate 78 /min Enrique Haines MD Work Phone: [facility] Work Phone: 08-07-2019 16:25-0500 Respiratory rate 20 /min Enrique Haines MD Work Phone: [facility] Work Phone: 08-07-2019 16:25-0500 SaO2% (BldA) [Mass fraction] 95 % Enrique Haines MD Work Phone: [facility] Work Phone: 08-07-2019 16:25-0500 Systolic blood pressure 148 mm[Hg] Enrique Haines MD Work Phone: [facility] Work Phone: 08-07-2019 10:51-0500 Body height 184.2 cm Enrique Haines MD Work Phone: [facility] Work Phone: 08-07-2019 10:51-0500 Body mass index (BMI) [Ratio] 34.78 kg/m2 Enrique Haines MD Work Phone: [facility] Work Phone: 08-07-2019 10:51-0500 Body temperature 97.59 [degF] Enrique Haines MD Work Phone: [facility] Work Phone: 08-07-2019 10:51-0500 Body weight 117.94 kg Enrique Haines MD Work Phone: [facility] Work Phone: 07-08-2019 15:25-0500 Body temperature 98.01 [degF] Enrique Haines MD Work Phone: [facility] Work Phone: 07-08-2019 15:25-0500 Diastolic blood pressure 94 mm[Hg] Enrique Haines MD Work Phone: [facility] Work Phone: 07-08-2019 15:25-0500 Heart rate 78 /min Enrique Haines MD Work Phone: [facility] Work Phone: 07-08-2019 15:25-0500 Respiratory rate 16 /min Enrique Haines MD Work Phone: [facility] Work Phone: 07-08-2019 15:25-0500 SaO2% (BldA) [Mass fraction] 97 % Enrique Haines MD Work Phone: [facility] Work Phone: 07-08-2019 15:25-0500 Systolic blood pressure 158 mm[Hg] Enrique Haines MD Work Phone: [facility] Work Phone: 07-08-2019 11:45-0500 Body height 182.9 cm Enrique Haines MD Work Phone: [facility] Work Phone: 07-08-2019 11:45-0500 Body mass index (BMI) [Ratio] 35.26 kg/m2 Enrique Haines MD Work Phone: [facility] Work Phone: 07-08-2019 11:45-0500 Body weight 117.94 kg Enrique Haines MD Work Phone: [facility] Work Phone: Encounters Encounter Date Encounter Type Care Provider Facility Start: 01-01-2025 End: 01-01-2025 ambulatory ARELIS [facility] Start: 12-25-2024 End: 12-25-2024 ambulatory [facility] Start: 12-09-2024 End: 12-09-2024 ambulatory [facility] Start: 12-01-2024 End: 12-31-2024 Pre-admission assessment [facility] Start: 11-20-2024 ambulatory [facility] Start: 10-28-2024 ambulatory [facility] Start: 10-21-2024 ambulatory [facility] Start: 09-17-2024 ambulatory [facility] Start: 08-19-2024 ambulatory [facility] Start: 07-31-2024 ambulatory [facility] Start: 07-25-2024 ambulatory [facility] Start: 07-08-2024 End: 07-08-2024 ambulatory [facility] Start: 07-04-2024 ambulatory [facility] Start: 06-23-2024 ambulatory [facility] Start: 06-11-2024 ambulatory [facility] Start: 05-16-2024 ambulatory [facility] Start: 05-08-2024 ambulatory [facility] ANGEL RE[facility] Start: 03-03-2024 ambulatory [facility] Start: 03-03-2024 Encounter for preprocedural cardiovascular examination [facility] Start: 01-25-2024 ambulatory [facility] Start: 01-14-2024 ambulatory [facility] Start: 01-07-2024 ambulatory [facility] Start: 01-22-2023 ambulatory Nino Romoi ty:JONELLE Conley Start: 07-25-2022 End: 07-26-2022 ambulatory CRISSY KINGSLEY Facility:[facility] Start: 07-13-2022 End: 07-14-[address] CASSANDRA LONG Facility:[facility] Start: 11-11-[address] CASSANDRA LONG Fac ility:[facility] Start: 11-08-2021 End: 11-09-[address] CASSANDRA LONG Facility:[facility] Start: 11-04-2021 End: 11-05-[address] CASSANDRA LONG Facility:[facility] Start: 10-04-2021 ambulatory Nino BAE Facility :[facility] Start: 10-04-2021 End: 10-05-2021 ambulatory Nino BAE Facility:[facility] Start: 09-30-2021 End: 10-01-[address] RANDALL HEARD JR Facility:[facility] Start: 08-07-2019 End: 08-07-2019 Patient encounter procedure [facility] Start: 08-07-2019 End: 08-07-2019 Subsequent hospital visit by physician Enrique Haines MD Work Phone: [facility] Comment on above: Post-op pain (Primar y Dx) Start: 08-07-2019 End: 08-10-2019 Patient encounter procedure [facility] Start: 08-07-2019 End: 08-09-2019 Subsequent hospital visit by physician Enrique Haines MD Work Phone: [facility] Radiology Comment on above: Pain Start: 07-08-2019 End: 07-08-2019 Patient encounter procedure ENRIQUE HAINES [facility] Start: 07-08-2019 End: 07-08-2019 Subsequent hospital visit by physician Enrique Haines MD Work Phone: [facility] Start: 07-08-2019 End: 07-11-2019 Patient encounter procedure ENRIQUE HAINES [facility] Start: 02-05-2018 End: 02-06-2018 Patient encounter SAM GREER [facility] Start: 01-11-2018 End: 01-12-2018 Patient encounter PROVIDER UNKNOWN [facility] Start: 01-10-2018 End: 01-11-2018 Patient encounter DEFAULT PHYSICIAN [facility] Procedures Date Procedure Procedure Detail Performing Clinician Start: 09-30-[address] CASSANDRA LONG Comment on above: Performed By: #### P SAD #### [facility] [address] [place] [address] Dr. Javy Brian Start: 08-07-2019 INCENTIVE SPIROMETRY [...] total ENRIQUE YANCY Start: 07-08-2019 Prothrombin time ENRIUQE YANCY Start: 07-08-2019 Thromboplastin time partial plasma/whole [...] 08/22/2019 Office Visit Neurosurgery Enrique Haines MD [address] [place] [address] [id number] [facility] Start: 07-11-2019 End: 07-11-2019 Patient encounter procedure 07/11/2019 Office Visit Neurosurgery Enrique Haines MD [address] [place] [address], [address] [id number] [facility] Start: 03-30-2019 Influenza vaccination Flu vaccine (# 1) [facility] Phone: Start: 01-19-2019 Annual Wellness Visi t (AWV) Annual Wellness Visit (AWV) [facility] Phone: Start: 2011 Pneumococcal 65+ yea rs Vaccine (1 of 1 - PPSV23) Pneumococcal 65+ years Vaccine (1 of 1 - PPSV23) [facility] Phone: Start: 02-28-1996 Colon cancer screen colonoscopy Colon cancer screen colonoscopy [facility] Phone: Start: 02-28-1996 Shingles Vaccine (1 of 2) Lester gles Vaccine (1 of 2) [facility] Phone: Start: 1986 Lipid screen Lipid screen [facility] Work Phone: Start: 1957 DTaP/Tdap/Td vaccine (1 - Tdap) DTaP/Tdap/Td vaccine (1 - Tdap) [facility] Phone: Start: 1945 Hepatitis C screen Hepatitis C scree n [facility] Work Phone: EKG 12 Lead EKG 12 Lead ECG Routine 07/08/2019 12:00 PM EST [facility] Work Phone: Incentive spirometry [facility] Work Phone: Comment on above: Every 2hr while awak e until discontinued starting 07/08/2019 Every 2hr while awak e until discontinued starting 08/07/2019 Initiate Oxygen Ther apy Protocol [facility] Phone: Comment on above: Daily until disconti nued starting 07/08/2019 Daily until disconti nued starting 08/07/2019 Phase I & II - meter ed glucose [facility] Phone: Comment on above: As Needed until disc ontinued starting 07/08/2019 As Needed until disc ontinued starting 08/07/2019 End: 07-08-2019 Pulse Oximetry Spot Check Pulse Oximetry Spot Check Respiratory Care Routine One Time for 1 Occurrences starting 07/08/2019 until 07/08/2019 [facility] Phone: Comment on above: One Time for 1 Occur rences starting 07/08/2019 until 07/08/2019 End: 08-07-2019 Pulse Oximetry Spot Check Pulse Oximetry Spot Check Respiratory Care Routine One Time for 1 Occurrences starting 08/07/2019 until 08/07/2019 [facility] Phone: Comment on above: One Time for 1 Occur rences starting 08/07/2019 until 08/07/2019 Payers Date Payer Category Payer Medicare MEDICARE MEDICAR E PART A AND B xxxxxxxxxxx 2017-Present [phone] [address] [address] [place] [address] xxxxxxxxxxx [id number] 2017 Unknown MEDICAL MUTUAL M EDICAL MUTUAL [address] xxxxxxxxxxxx 2017-Present [phone] [address] [place] [address] xxxxxxxxxxxx [id number] 2017 Medicare [id number] 1959 Medicare [id number] 1959 Self-pay 1959 Unknown [id number] 1946 Unknown [id number] .182 1946 Unknown [id number] .182 1946 Unknown [id number] .182 1946 Unknown [id number] [id number] .182 1946 Unknown [id number] [id number] .593 1946 Unknown [id number] 2.16.840.1.209003.3.579.2 .593 1946 Unknown [id number] 2.16.840.1.757486.3.579.2 .593 1946 Unknown [id number] 2.16.840.1.793739.3.579.2 .593 1946 Unknown [id number] [id number] .593 1946 Unknown [id number] [id number] .593 1946 Unknown [id number] [id number] .727 1945 Unknown [id number] [id number] .727 Medicare [id number] Private Health Insurance [id number] Unknown Social History Date Type Detail Facility Start: 07-07-2019 End: 08-08-2019 Tobacco smoking status NHIS Never smoker [facility] Phone: Start: 07-07-2019 End: 08-08-2019 Alcohol intake Current non-drinker of alcohol (finding) [facility] Phone: Sex Assigned At Not on file [facility] Phone: Start: 12-28-2015 Tobacco smoking status Ex-smoker (fi nding) [facility] Comment on above: 40 years ago Sexual Orientation [facility] Sex Assigned At Male [facility] Start: 12-09-2015 Sex Male (finding) [facility] Medical Equipment Procedure Code Equipment Code Equipment Origin al Text Equipment Identifier Dates Lead Trial Compc t Perc 1x8 [id number] Start: 07-08-2019 Stimulator Intel lis Adaptive Stim Mri - [id number] Start: 08-07-2019 Lead Pain 1x8 60 cm Vectris [id number] Start: 08-07-2019 Lead Pain 1x8 60 cm Vectris [id number] Start: 08-07-2019 Clinical Notes 07-08-2019 to 01-01-2025 Alexandra Cody RN - 08/07/2019 4:19 PM Oralia Nolasco RN - 07/08/2019 3:27 PM Oralia Smith RN - 07/08/2019 3:08 PM Fouzia Talbert RN - 07/07/2019 2:25 PM EST Note Date & Type Note Facility 01-01-2025 Note [place] Cardiology - [facility] Patient in clinic [...] in clinic in 2-3 months. Arelis Ridley APRN-[facility] Cardiovascular Ga (more content not included)... [facility] 01-01-2025 Note Patient is here toda y in office for a wound check. S/P generator change on 12/25/2024 Patient denies fever or chills, small amount of pain 1/10 occasionally, Redness noted around Tegaderm. Small amount of discharge noted on bandage. Review of Systems Constitutional: Negative. [facility] 12-25-2024 Note BiV-ICD GENERATOR RE PLACEMENT [...] weeks. Jose Angel Rey MD Cardiac Electrophysiology [facility] 12-25-2024 Note Patient: Indio blanca Procedure Information Date/Time: 12/25/241499 Procedure: Generator change ICD BiV - PC APPROVED Medtronic [facility] 1 / [facility] (Cath) Providers: Jose Angel Rey MD Clinical information reviewed: Allergies Meds Physical Exam Airway Mallampati: II TM distance: >3 FB Neck ROM: full Cardiovascular Dental Pulmonary Abdominal Anesthesia Plan ASA 3 CSE Anesthetic plan and risks discussed with patient. Use of blood products discussed with patient who. Additional Equipment Requests [facility] 12-25-2024 Note This report has been cancelled. [facility] 12-09-2024 Note [place] Cardiology Note [facility] Reason for follow-up: [...] in follow up after recent admission to [facility] when he developed hypotension after [place] for urologic surgery. 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 He had a recent stress test at Dr Marcial's office which was negative. He has been maintained on coreg and Entresto maximum dosage for >4 months now. On his recent echocardiogram at [facility] there was reduced EF 30% and [...] Date BACK SURGERY (more content not included)... [facility] 11-21-2024 Note Provider called pt a nd son today for concerns of worsening heart failure index noted on device interrogation. Pt states that he feels well, denied any water retention, leg edema, or weight gain. Denied worsening SOB or orthopnea. States he has actually lost about 20-30 pounds on purpose, and remains fairly active. Therefore, message sent to [place] cardiology staff, Dr Long and Dr Rey with update of pt status, device at 3 month battery life and to monitor for upcoming device exchange for battery. Pt voiced understanding of red flag symptoms to call cardiology for- increased SOB, Orthopnea, weight gain, fatigue, or water retention. Melyssa Do [facility] Cardiology Available 7a-3pm via [employer] [phone] [facility] 11-21-2024 Note Copy of Medtronic Op tiVol report 11/17/24 Margie Stack PA-C [facility] Cardiovascular Medicine [phone] [facility] [facility] 08[facility]2019 History of Present illness Narrative disch inst and 2 presc given and explained to pt and son documented in this encounter [facility]: 08-07-2019 Hospital Discharge instructions Alexandra Cody RN - 08/07/2019 Ice packs to the incision Shower on Sunday documented in this encounter [facility]: 07-08-2019 History of Present illness Narrative [...] notified of above. documented in this encounter [facility]: 07-08-2019 Hospital Discharge instructions Oralia Griffin RN - 07/08/2019 May shower and ambulate. Follow instructions of medtronic documented in this encounter [facility]: Evaluation + Plan note No data available for this section [facility] Evaluation note Diagnosis Post-op pain- Primary Other acute postoperative pain documented in this encounter [facility]: evaluation note* Diagnosis Pain Generalized pain documented in this encounter [facility]: Hospital Discharge instructions No data available for this section [facility] Progress note No data available for this section 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 Advance Directives and Living Will Power of Print Cutter Reason for Referral Status Reason Specialty Diagnoses / Procedures Referred By Contact Referred To Contact Pending Review Radiology Diagnoses Pain Procedures Fluoro For Surgical Procedures Enrique Haines MD [id number], [address] [place] [address] Additional Source Comments (unrecognized sect ion and content) No Status Records FoundNo Status Records FoundNo Status Records FoundNo Status Records FoundNo Status Records Found INFORMATION SOURCE (unrecogn ized section and content) DATE CREATED AUTHOR 02/12/2018 [facility] DATE CREATED AUTHOR AUTHOR'S ORGANIZ ATION 08/09/2019 [facility] DATE CREATED AUTHOR AUTHOR'S ORGANIZ ATION 07/28/2022 [facility] DATE CREATED AUTHOR AUTHOR'S ORGANIZ ATION 09/22/2022 [facility] DATE CREATED AUTHOR AUTHOR'S ORGANIZ ATION 01/02/2025 [facility] Reason for Visit (unrecogniz ed section and content) Status Reason Specialty Diagnoses / Procedures Referre d By Contact Referred To Contact Diagnoses RADICULOPATHY, STENOSIS, SPONDYLOSIS Procedures UT NJX DX/THER SBST INTRLMNR CRV/THRC W/IMG GDN D.C.S. (DORSAL COLUMN STIMULATOR) TRIAL 1 HOUR/ 1 C-ARM/ [facility] (PAT SAME DAY OF SURGERY) Enrique Haines MD [id number], [address] [place] [address] [facility] Status Reason Specialty Diagnoses / Procedures Referre d By Contact Referred To Contact Diagnoses Cervical spondylosis with myelopathy and radiculopathy RADICULOPATHY SPONDYLOSIS Procedures UT IMPLANT NEUROSTIM/EXTRUSION LINE OPERATOR PERMANENT DCS (DORSAL COLUMN STIMULATOR)PLACEMENT, 1 HOUR/ 1 C-ARM/ [facility], *NEED MAGNET FOR PACEMAKER, PAT COMPLETED 07/08/19 nErique Haines MD [id number], [address] [place] [address] [facility] Patient Care team informatio n (unrecognized section and content) Personnel Name: ANIKET LOPEZ DO REN Address: [address] [place] [id number] [employer]: FOR RECORDS PERTAINING TO PATIENTS WHO [...] BE BASED ON THE PRIMARY CLINICAL RECORDS. [employer] provides no warranty or guarantee of the accuracy or completeness of information in this document.
--- NOTE | 2025-01-21 09:38 | PM.CN ---
Consult Note: HPI Data of Consult Patient: known to practice within the last 3 years Requesting Physician: Gissel Sequeira NP Primary Care Provider: GIAN MARCIAL DO Consult Narrative Reason for consult: return pt for low back pain Narrative: pleasant 79 year old male presents for evaluation of chronic thoracic and lumbar pain, hx of l4,5,S1 fusion and medtronic SCS implant as of 2019, who has failed to benefit from > 6 weeks of PT, provider guided HEP, heat, ice, tylenol, NSAIDs. currently utilizing duloxetine, lyrica, tylenol, baclofen with mild relief. pain today 6/10 aching, pain significantly increased with standing and walking. radicular pain well controlled with scs per pt. denies falls or injury over the last 6 months. of note pt has a medtronic pacemaker as well. recently underwent thoracic xray and lumbar CT which shows significant multilevel spondylosis, DDD, and stenosis. cc:: CC: Gissel Sequeira NP Review of Systems ROS Status of ROS 10 or more systems reviewed and unremarkable except as noted in history and below Musculoskeletal Reports: back pain and extremity pain PFSH PFSH Medical History (Updated 11/06/24 @ 14:08 by Razia Nguyen RN) Pacemaker ?Z95.0 - Presence of cardiac pacemaker (ICD-10) Social History Smoking status: Never smoker Meds Home Medications and Allergies Home Medications ?Medication ?Instructions ?Recorded ?Confirmed ?Type allopurinol 300 mg tablet 300 mg PO DAILY 11/06/24 11/06/24 History dapagliflozin propanediol 10 mg 10 mg PO DAILY 11/06/24 11/06/24 History tablet (Farxiga) duloxetine 60 mg capsule,delayed 60 mg PO DAILY 11/06/24 11/06/24 History release (Cymbalta) famotidine 40 mg tablet 40 mg PO DAILY 11/06/24 11/06/24 History finasteride 5 mg tablet 5 mg PO DAILY 11/06/24 11/06/24 History furosemide 20 mg tablet mg 11/06/24 History hydroxychloroquine 200 mg tablet 200 mg PO DAILY 11/06/24 11/06/24 History lubiprostone 8 mcg capsule 8 mcg PO BID 11/06/24 11/06/24 History montelukast 10 mg tablet 10 mg PO DAILY 11/06/24 11/06/24 History pregabalin 200 mg capsule 200 mg PO Q12H 11/06/24 11/06/24 History rosuvastatin 10 mg tablet 10 mg PO DAILY 11/06/24 11/06/24 History sacubitril 49 mg-valsartan 51 mg 1 tab PO BID 11/06/24 11/06/24 History tablet (Entresto) Allergies Allergy/AdvReac Type Severity Reaction Status Date / Time No Known Drug Allergies Allergy Verified 01/04/23 00:53 Exam Constitutional Documenting provider has reviewed patient's vital signs: yes Common normals: no apparent distress, oriented x3, healthy appearing, alert and well nourished General appearance: cooperative HENMT Common normals: normocephalic, hearing grossly normal bilaterally and moist oral mucous membranes Head and scalp: normocephalic Eye Common normals: PERRL Pupil: PERRL Neck & C-Spine Common normals: full ROM General: normal visual inspection Chest Common normals: inspection of chest normal Respiratory Common normals: normal respiratory effort, no retractions and no use of accessory muscles Back & Pelvis Thoracic spine/upper back: ROM limited, pain with ROM and thoracic spinal tenderness T-spine tenderness location: T10, T11 and T12 Lumbar spine/lower back: ROM limited, pain with ROM, lumbar spinal tenderness Lumbar spinal tenderness location: L1, L2 and L3 and straight leg raise positive right Other: decreased sensation bilateral to RLE following L3,4,5 strength 4/5 in RLE and 5/5 in LLE increased pain with standing and walking, improved with forward flexion Neuro Common normals: oriented x3 Sensorium/orientation: alert Psych Common normals: mental status grossly normal, thought process normal, cooperative, affect normal, speech normal and activity/motor behavior normal Speech: normal speech Thought process: normal thought process Results Additional Findings Additional findings: If on a controlled substance or opioids, I have checked an [place]AR[place] report on this patient and there are no aberrancies noted in the prescribing history.??If on a controlled substance or opioid a drug screen was completed and reviewed within the last year, and if there has not been a drug screen completed we ordered one today to monitor higher risk, state monitored pain medication use. As part of providing excellent, safe, comprehensive care, the following was completed at our patient's visit: 1. A medication reconciliation and review to ensure accurate knowledge of current/active medications, including asking our patients to inform us about any [id number] medications or herbal remedies/nutritional supplements/alternative remedies. 2. A review to specifically ensure our patients have had annual screening for screening for depression, screening for tobacco use, and screening for unhealthy alcohol use. For concerning screenings had a discussion with the patient, provided patient education, and recommended follow-up with primary care provider when appropriate. If patient noted with a risk of falling, they received education on strength, gait, and balance training to prevent future risk of falling. Portions of this note may have been carried over from the previous visit and updated as appropriate. Please note this office utilizes paper charting in addition to the electronic medical record. A list of current medications, vitals, and PMH is available there as the clinical staff outside of myself do not have access to [employer] charting during the clinic day operations. As part of providing quality comprehensive care the current medications, vitals, and PMH were reviewed in the paper chart. Assessment and Plan Assessment and Plan (1) Lumbar stenosis with neurogenic claudication: Assessment and Plan: The patient has had over 3 months of moderate to severe low back and RLE pain with functional impairment and inadequate response to conservative care including NSAIDS (unless there are contraindication such as concurrent blood thinners), multiple oral or topical pain medications, and home exercise program/physical therapy.? Patient has completed >6 weeks of guided home exercise program and/or formal physical therapy program without relief of their symptoms.? The Oswestry Disability Index was completed, and the patient scored a 34%.? The patient noted the following:?? moderate to severe pain impacting standing, walking, ADLs, sleeping, social life, travel We discussed the risks and benefits of the procedure with the patient, and we are NOT planning on using sedation as outlined in the guidelines from Medicare unless there is a documented reason that sedation would be strongly recommended.?? ?The procedure will be completed with fluoroscopic guidance.? (2) Failed back syndrome: (3) S/P insertion of spinal cord stimulator: (4) Lumbar spondylosis: (5) Thoracic spondylosis: Plan 79 year old male with chronic thoracic and lumbar pain post scs implant and l4,5,s1 fusion with severe pain unresponsive to > 6 weeks of PT, provider guided HEP, heat, ice, tylenol, nsaids. imaging reviewed with pt. proceed with right L3,4,5 TFESI under fluoroscopy for lumbar stenosis with NC. as disucssed with pt will consider lumbar MBBs/RFA for facet mediated pain at f/u. f/u 2 weeks after TFESI
== END 2025-01-21 09:13 | disposition home or self-care (01) ==
LOC: PM 09:12
PROVIDERS: PCP Internal Medicine; Visit Provider Nurse Practitioner
DX: M48.062 Spinal stenosis, lumbar region with neurogenic claudication (principal); M96.1 Postlaminectomy syndrome, not elsewhere classified; M47.816 Spondylosis without myelopathy or radiculopathy, lumbar region; M47.814 Spondylosis without myelopathy or radiculopathy, thoracic region; Z96.82 Presence of neurostimulator
CPT/HCPCS: G0463

== ENCOUNTER 2025-01-26 08:49 | Day surgery (SDC) | payer MEDICARE, OTHER, SELFPAY ==
--- OUTSIDE RECORDS SUMMARY | 2025-01-26 09:11 | XMS_ITS | CCD ---
Author Organization [facility] Care Team Providers Care Logistics Engineering Manager Name Role Phone PHYSICIAN, DEFAULT Unavailable Unavailable [...] SAVITA, JOSE ANGEL Referring Unavailable SAVITA, JOSE AGNEL Referring Unavailable SAVITA, JOSE ANGEL Referring Unavailable VALONE REN LOPEZ Primary Care Physician [phone] Allergies Allergy Classification Reported Allergen(s) Allergy Type Date of Onset Reaction(s) Facility (3 sources) tamsulosin Drug Allergy 06-30-2016 AOF [facility] Repository (1 source) NO KNOWN DRUG ALLERGIES Drug allergy (disorder) 06-09-2009 [facility] Repository (3 sources) tamsulosin Drug Allergy 07-07-2019 [facility] (3 sources) tamsulosin; Translations: [tamsulosin] Drug Allergy 02-03-2015 Hypotension [facility] Repository Medications Current Medications Medication Drug Class(es) Dates Sig (Normalized) Sig (Original) Acetaminophen / HYDROcodone (3 sources) Opioid Agonist Start: 08-07-2019 End: 08-07-2019 HYDROcodone-acetam inophen (NORCO) 5-325 MG per tablet 1 tablet Start: 07-08-2019 End: 07-08-2019 HYDROcodone-acetaminophen (N ORCO) 5-325 MG per tablet 1 tablet Start: 12-30-2015 Viola 325 mg-5 mg oral tablet 1 tab(s), [...] Onset: 02-05-2018 Chronic Other aftercare (1 source) long term (current) use of aspirin; Translations: [PEDIATRICIAN (CURRENT) USE OF ASPIRIN] Onset: 02-05-2018 Episodic [...] Range Facility Office Visiton 01-01-2025 Follow-up visit [id number] Jose Guevara 1945 M Date Provider Department Center 01/01/2025 [facility] Family History Problem Relation Age of Onset Stroke Father Family Status - Relation Status Age at Mother Father Brother Alive Level of Service:14669 CO POSTOP FOLLOW UP VISIT RELATED TO ORIGINAL PX Normal [facility] HPon 12-25-2024 [facility] Cardiology Note [facility] Reason for follow-up: BiV ICD HPI: [...] in follow up after recent admission to [facility] when he developed hypotension after [place] for urologic surgery. He has history of non ischemic Cardiomyopathy and systolic heart failure with cath in 2007 at [facility] showing no significant CAD when his EF was 30%. He had a recent stress test at Dr Marcial's office which was negative. He has been maintained on coreg and Entresto maximum dosage for >4 months now. On his recent echocardiogram at [facility] there was reduced EF 30% and possible apical thrombus. A follow up echocardiogram with [facility] on 01/11/2018 showed EF 25% with [...] (more content not included)... Normal [facility] 12-25-2024 NURSNOTE RN educated pt on [...] off of unit with all of belongings. [facility] NURSNOTE CHG wipes and betadi ne nasal swabs completed. [facility] Orders Onlyon 12-25-2024 Orders Only [id number] Jose Guevara 1945 Date Provider Department Center 12/25/2024 REINA FRAZIER [facility] Family History Problem Relation Age of Onset Stroke Father Family Status - Relation Status Age at Mother Father Brother Alive [facility] Orders Onlyon 12-17-2024 Orders Only [id number] Jose Guevara 1945 Date Provider Department Center 12/17/2024 JOSE ANGEL ABRAMS [facility] Family History Problem Relation Age of Onset Stroke Father Family Status - Relation Status Age at Mother Father Brother Alive [facility] Office Visiton 12-09-2024 Follow-up visit [id number] Jose Guevara 1945 Date Provider Department Center 12/09/2024 JOSE ANGEL ABRAMS [facility] Family History Problem Relation Age of Onset Stroke Father Family Status - Relation Status Age at Mother Father Brother Alive Level of Service:26742 CO OFFICE/OUTPATIENT [facility] 60 MINUTES [facility] Documentationon 11-21-2024 Documentation [id number] Jose Guevara 1945 Date Provider Department Center 11/21/2024 MELYSSA LEON [facility] Family History Problem Relation Age of Onset Stroke Father Family Status - Relation Status Age at Father Reason for Visit and Comments: Congestive Heart Failure [127] Normal [facility] Orders Onlyon 11-17-2024 Orders Only [id number] Jose Guevara 1945 M Date Provider Department Center 11/17/2024 AGUEDA STARKEY [facility] Family History Problem Relation Age of Onset Stroke Father Family Status - Relation Status Age at Father Normal [facility] PROF CHEM 8 (BAS METB)on Anion gap [Moles/Vol] 9.4 mmol/L Normal [facility] Comment on above: Performed By: #### B MP #### [facility] [address] [address] [address] Javy Brian Calcium [Mass/Vol] 9.7 mg/dL Normal 8.5-10.1 [facility] Comment on above: Performed By: #### B MP #### [facility] [address] [address] [address] Javy Brian Chloride [Moles/Vol] 106 mmol/L Normal 98-107 [facility] Comment on above: Performed By: #### B MP #### [facility] [address] [address] [address] Javy Brian CO2 [Moles/Vol] 30.4 mmol/L Normal 21.0-32.0 [facility] Comment on above: Performed By: #### B MP #### [facility] [address] [address] [address] Javy Brian Creatinine [Mass/Vol] 1.46 mg/dL Critically high 0.70-1.30 [facility] Comment on above: Performed By: #### B MP #### [facility] [address] [address] [address] Javy Brian EGFR-AF HONDURAN 57 mL/min/1.73m2 Critically low >=60 [facility] Comment on above: Performed By: #### B MP #### [facility] [address] [address] [address] Javy Brian EGFR-NON AF HONDURAN 47 mL/min/1.73m2 Critically low >=60 [facility] Comment on above: Performed By: #### B MP #### [facility] [address] [address] [address] Javy Brian Glucose [Mass/Vol] 99 mg/dL Normal 74-106 [facility] Comment on above: Performed By: #### B MP #### [facility] [address] [address] [address] Javy Brian Potassium [Moles/Vol] 4.8 mmol/L Normal 3.5-5.1 [facility] Comment on above: Performed By: #### B MP #### [facility] [address] [address] [address] Javy Brian Sodium [Moles/Vol] 141 mmol/L Normal 136-145 [facility] Comment on above: Performed By: #### B MP #### [facility] [address] [address] [address] Javy Brian Urea nitrogen [Mass/Vol] 23.0 mg/dL Critically high 7.0-18.0 [facility] Comment on above: Performed By: #### B MP #### [facility] [address] [address] [address] Javy Brian Urea nitrogen/Creatinin e [Mass ratio] 15.8 mg/mg Normal [facility] Comment on above: Performed By: #### B MP #### [facility] [address] [address] [address] Javy Brian PROF CHEM 8 (BAS METB)on Anion gap [Moles/Vol] 10.7 mmol/L Normal [facility] Comment on above: Performed By: #### B MP #### [facility] [address] [address] [address] Javy Brian Calcium [Mass/Vol] 9.7 mg/dL Normal 8.5-10.1 [facility] Comment on above: Performed By: #### B MP #### [facility] [address] [address] [address] Javy Brian Chloride [Moles/Vol] 106 mmol/L Normal 98-107 [facility] Comment on above: Performed By: #### B MP #### [facility] [address] [address] [address] Javy Brian CO2 [Moles/Vol] 29.5 mmol/L Normal 21.0-32.0 [facility] Comment on above: Performed By: #### B MP #### [facility] [address] [address] [address] Javy Brian Creatinine [Mass/Vol] 1.79 mg/dL Critically high 0.70-1.30 [facility] Comment on above: Performed By: #### B MP #### [facility] [address] [address] [address] Javy Brian EGFR-AF HONDURAN 45 mL/min/1.73m2 Critically low >=60 [facility] Comment on above: Performed By: #### B MP #### [facility] [address] [address] [address] Javy Brian EGFR-NON AF HONDURAN 37 mL/min/1.73m2 Critically low >=60 [facility] Comment on above: Performed By: #### B MP #### [facility] [address] [address] [address] Javy Brian Glucose [Mass/Vol] 94 mg/dL Normal 74-106 [facility] Comment on above: Performed By: #### B MP #### [facility] [address] [address] [address] Javy Brian Potassium [Moles/Vol] 5.2 mmol/L Critically high 3.5-5.1 [facility] Comment on above: Performed By: #### B MP #### [facility] [address] [address] [address] Javy Brian Sodium [Moles/Vol] 141 mmol/L Normal 136-145 [facility] Comment on above: Performed By: #### B MP #### [facility] [address] [address] [address] Javy Brian Urea nitrogen [Mass/Vol] 34.0 mg/dL Critically high 7.0-18.0 [facility] Comment on above: Performed By: #### B MP #### [facility] [address] [address] [address] Javy Brian Urea nitrogen/Creatinin e [Mass ratio] 19.0 mg/mg Normal [facility] Comment on above: Performed By: #### B MP #### [facility] [address] [address] [address] Javy Brian PROF CHEM 8 (BAS METB)on Anion gap [Moles/Vol] 12.0 mmol/L Normal [facility] Comment on above: Performed By: #### B MP #### [facility] [address] [address] [address] Javy Brian Calcium [Mass/Vol] 8.9 mg/dL Normal 8.5-10.1 [facility] Comment on above: Performed By: #### B MP #### [facility] [address] [address] [address] Javy Brian Chloride [Moles/Vol] 109 mmol/L Critically high 98-107 [facility] Comment on above: Performed By: #### B MP #### [facility] [address] [address] [address] Javy Brian CO2 [Moles/Vol] 29.0 mmol/L Normal 22.0-30.0 [facility] Comment on above: Performed By: #### B MP #### [facility] [address] [address] [address] Javy Brian Creatinine [Mass/Vol] 1.79 mg/dL Critically high 0.66-1.25 [facility] Comment on above: Performed By: #### B MP #### [facility] [address] [address] [address] Javy Brian EGFR-AF HONDURAN 45 mL/min/1.73m2 Critically low >=60 [facility] Comment on above: Performed By: #### B MP #### [facility] [address] [address] [address] Javy Brian EGFR-NON AF HONDURAN 37 mL/min/1.73m2 Critically low >=60 [facility] Comment on above: Performed By: #### B MP #### [facility] [address] [address] [address] Javy Brian Glucose [Mass/Vol] 92 mg/dL Normal 74-106 [facility] Comment on above: Performed By: #### B MP #### [facility] [address] [address] [address] Javy Brian Potassium [Moles/Vol] 5.0 mmol/L Normal 3.4-5.0 [facility] Comment on above: Performed By: #### B MP #### [facility] [address] [address] [address] Javy Brian Sodium [Moles/Vol] 145 mmol/L Normal 137-145 [facility] Comment on above: Performed By: #### B MP #### [facility] [address] [place] [address] Dr. Javy Brian Urea nitrogen [Mass/Vol] 35.0 mg/dL Critically high 7.0-18.0 [facility] Comment on above: Performed By: #### B MP #### [facility] [address] [place] [address] Dr. Javy Brian Urea nitrogen/Creatinin e [Mass ratio] 19.6 mg/mg Normal [facility] Comment on above: Performed By: #### B MP #### [facility] [address] [place] [address] Dr. Javy Brian CBC AUTO DIFFon 11-04-2021 BASO # 0.0 103/ul Normal 0.0-0.1 [facility] Comment on above: Performed By: #### C BC #### [facility] [address] [place] [address] Dr. Javy Brian Basophils/100 WBC (Bld) 0.7 % Normal 0.2-2.0 [facility] Comment on above: Performed By: #### C BC #### [facility] [address] [place] [address] Dr. Javy Brian EO # 0.2 103/ul Normal 0.0-0.7 [facility] Comment on above: Performed By: #### C BC #### [facility] [address] [place] [address] Dr. Javy Brian Eosinophils/100 WBC (Bld) 3.1 % Normal 0.9-7.0 [facility] Comment on above: Performed By: #### C BC #### [facility] [address] [place] [address] Dr. Javy Brian Erythrocyte distribution width (RBC) [Ratio] 14.3 % Normal 11.0-15.0 [facility] Comment on above: Performed By: #### C BC #### [facility] [address] [place] [address] Dr. Javy Brian Hematocrit (Bld) [Volume fraction] 43.5 % Normal 42.0-54.0 [facility] Comment on above: Performed By: #### C BC #### [facility] [address] [place] [address] Dr. Javy Brian Hemoglobin (Bld) [Mass/Vol] 13.7 g/dL Critically low 14.0-18.0 [facility] Comment on above: Performed By: #### C BC #### [facility] [address] [place] [address] Dr. Javy Brian IG # 0.01 10e3/ul Normal 0.00-0.03 [facility] Comment on above: Performed By: #### C BC #### [facility] [address] [place] [address] Dr. Javy Brian IG % 0.2 % Normal 0.0-0.5 [facility] Comment on above: Performed By: #### C BC #### [facility] [address] [place] [address] Dr. Javy Brian LYMPH # 1.4 103/ul Normal 1.2-3.8 [facility] Comment on above: Performed By: #### C BC #### [facility] [address] [place] [address] Dr. Javy Brian Lymphocytes/100 WBC (Bld) 23.6 % Normal 20.5-60.0 [facility] Comment on above: Performed By: #### C BC #### [facility] [address] [place] [address] Dr. Javy Brian MANUAL DIFF REQ NO Normal [facility] Comment on above: Performed By: #### C BC #### [facility] [address] [place] [address] Dr. Javy Brian MCH (RBC) [Entitic mass] 29.0 pg Normal 25.9-34.0 [facility] Comment on above: Performed By: #### C BC #### [facility] [address] [place] [address] Dr. Javy Brian MCHC (RBC) [Mass/Vol] 31.5 g/dL Normal 29.9-35.2 [facility] Comment on above: Performed By: #### C BC #### [facility] [address] [place] [address] Dr. Javy Brian MCV (RBC) [Entitic vol] 92.0 fL Normal 80.0-94.0 [facility] Comment on above: Performed By: #### C BC #### [facility] [address] [place] [address] Dr. Javy Brian MONO # 0.8 103/ul Normal 0.3-0.8 [facility] Comment on above: Performed By: #### C BC #### [facility] [address] [place] [address] Dr. Javy Brian Monocytes/100 WBC (Bld) 14.1 % Critically high 1.7-12.0 [facility] Comment on above: Performed By: #### C BC #### [facility] [address] [place] [address] Dr. Javy Brian NEUT # 3.4 103/ul Normal 1.4-6.5 [facility] Comment on above: Performed By: #### C BC #### [facility] [address] [place] [address] Dr. Javy Brian Neutrophils/100 WBC (Bld) 58.3 % Normal 43.0-75.0 [facility] Comment on above: Performed By: #### C BC #### [facility] [address] [place] [address] Dr. Javy Brian Platelet mean volume (Bld) [Entitic vol] 9.7 fL Normal 9.5-13.5 [facility] Comment on above: Performed By: #### C BC #### [facility] [address] [address] [address] Javy Brian PLT 113 103/ul Critically low 150-450 [facility] Comment on above: Performed By: #### C BC #### [facility] [address] [place] [address] Dr. Javy Brian RBC 4.73 106/ul Normal 4.70-6.10 [facility] Comment on above: Performed By: #### C BC #### [facility] [address] [place] [address] Dr. Javy Brian WBC 5.8 103/ul Normal 4.0-11.0 [facility] Comment on above: Performed By: #### C BC #### [facility] [address] [place] [address] Dr. Javy Brian PROF CHEM 8 (BAS METB)on Anion gap [Moles/Vol] 13.2 mmol/L Normal [facility] Comment on above: Performed By: #### B MP #### [facility] [address] [place] [address] Dr. Javy Brian Calcium [Mass/Vol] 9.1 mg/dL Normal 8.5-10.1 [facility] Comment on above: Performed By: #### B MP #### [facility] [address] [place] [address] Dr. Javy Brian Chloride [Moles/Vol] 110 mmol/L Critically high 98-107 [facility] Comment on above: Performed By: #### B MP #### [facility] [address] [place] [address] Dr. Javy Brian CO2 [Moles/Vol] 27.6 mmol/L Normal 22.0-30.0 [facility] Comment on above: Performed By: #### B MP #### [facility] [address] [address] [address] Javy Brian Creatinine [Mass/Vol] 1.61 mg/dL Critically high 0.66-1.25 [facility] Comment on above: Performed By: #### B MP #### [facility] [address] [address] [address] Javy Brian EGFR-AF HONDURAN 51 mL/min/1.73m2 Critically low >=60 [facility] Comment on above: Performed By: #### B MP #### [facility] [address] [address] [address] Javy Brian EGFR-NON AF HONDURAN 42 mL/min/1.73m2 Critically low >=60 [facility] Comment on above: Performed By: #### B MP #### [facility] [address] [address] [address] Javy Brian Glucose [Mass/Vol] 94 mg/dL Normal 74-106 [facility] Comment on above: Performed By: #### B MP #### [facility] [address] [address] [address] Javy Brian Potassium [Moles/Vol] 5.8 mmol/L Critically high 3.4-5.0 [facility] Comment on above: Performed By: #### B MP #### [facility] [address] [address] [address] Javy Brian Sodium [Moles/Vol] 145 mmol/L Normal 137-145 [facility] Comment on above: Performed By: #### B MP #### [facility] [address] [address] [address] Javy Brian Urea nitrogen [Mass/Vol] 27.0 mg/dL Critically high 7.0-18.0 [facility] Comment on above: Performed By: #### B MP #### [facility] [address] [address] [address] Javy Brian Urea nitrogen/Creatinin e [Mass ratio] 16.8 mg/mg Normal [facility] Comment on above: Performed By: #### B MP #### [facility] [address] [address] [address] Javy Brian Ambulatory Visit Summaryon 0 10-04-2021 Ambulatory Visit Summary INDIO GUEVARA :1945 Visit Date:10/04/2021 Ambulatory Visit Instructions Your Diagnosis BPH with urinary obstruction Personal history of kidney stones Tests Performed Urnls Dip Stick Auto w/o Microscopy POC 74296 Your Care Team Attending Physician - Randall Heard Jr., MD Primary Care Physician - REN MARCIAL JR, DO This Is Your Medications List Contact prescribing physician if questions or concerns acetaminophen-hydrocodone (Viola 325 mg-5 mg oral tablet) allopurinol (allopurinol [...] Heard Jr., MD Where: [facility] Patient Educationon 10-05-19 Patient Education Urology Benign [...] Follow these instructions at home: ? Take juyg-ofe-zsfkjin and prescription medicines only as told by [...] d (more content not included)... Normal [facility] Urology Office/Clinic Noteon 10-04-2021 Urology [...] Urnls Dip Stick Auto w/o Microscopy POC 39364 2. Personal history of kidney stones (Z87.442: [...] (more content not included)... Normal [facility] Comment on above: Result Comment: Elec tronically Signed By: Félix Carter MD, Rnadall Espino\.br\Date and Time Signed: 10/04/21 11:52 EST\.br\Electronically Co-Signed By: Shakira Emery MA\.br\Date and Time Co-Signed: 10/04/21 11:49 EST Lab Reportson 10-03-2021 Lab Reports [id number] Normal [facility] Fluoro For Surgical Procedur esOrdered By: Enrique Haines on 08-08-2019 Impression: Fluorosc opic time 383.0 seconds. Spinal stimulating leads with leads at indeterminate spinal level. If there is clinical concern for desired level location, radiographs lumbar/thoracic spine recommended. [facility] Phone: Patient 1 : 1945 Age: 74 years Gender: Male Order Date: 08/07/2019 2:09 PM. Exam: FLUORO FOR SURGICAL PROCEDURES Number of Views: 2 Indication: Pain Comparison: None Findings: Spinal stimulating leads are noted with leads at indeterminate spinal level. Postoperative changes lower lumbar spine. [facility] Phone: [facility] Incoming R adiant Results [...] desired level location, radiographs lumbar/thoracic spine recommended. [facility] Phone: FLUORO FOR SURGICAL PROCEDUR ESon 08-07-2019 [...] Somers MD 08/08/[address] [facility] APTTOrdered By: Tone duron on 07-08-2019 aPTT Coag (Bld) [Time] 33.3 s [employer] Phone: Comment on above: Effective 02/13/2019: Please note methodology and/or reference ranges have changed. aPTT - Heparin Therapeutic Range: 74.0 - 106 seconds BASIC METABOLIC PANELOrdered By: Tone Redd on 07-08-2019 Anion gap [Moles/Vol] 13 mmol/L [facility] Phone: Calcium [Mass/Vol] 9.6 mg/dL 8.5 - 9.9 mg/dL [facility] Phone: Chloride [Moles/Vol] 107 mmol/L [facility] Phone: CO2 [Moles/Vol] 22 mmol/L [facility] Phone: Creatinine [Mass/Vol] 1.02 mg/dL 0.7 - 1.2 mg/dL [facility] Phone: GFR >60.0 >60 [facility] Phone: Comment on above: >60 mL/min/1.73m2 EG FR, calc. for ages 18 and older using the MDRD formula (not corrected for weight), is valid for stable renal function. GFR Non- >60.0 >60 [facility] Phone: Comment on above: >60 mL/min/1.73m2 EG FR, calc. for ages 18 and older using the MDRD formula (not corrected for weight), is valid for stable renal function. Glucose [Mass/Vol] 98 mg/dL 70 - 99 mg/dL [facility] Phone: Potassium [Moles/Vol] 4.5 mmol/L [facility] Phone: Sodium [Moles/Vol] 142 mmol/L [facility] Phone: Urea nitrogen [Mass/Vol] 21 mg/dL 8 - 23 mg/dL [employer] Phone: Basic Metabolic Panelon 12-1 0-2018 Anion gap [Moles/Vol] 13 mmol/L Normal 9-15 [facility] Comment on above: Performed By: #### B MP #### [facility] [address] [place] [address] Calcium [Mass/Vol] 9.6 mg/dL Normal 8.5-9.9 [facility] Comment on above: Performed By: #### B MP #### [facility] [address] [place] [address] Chloride [Moles/Vol] 107 mmol/L Normal 95-107 [facility] Comment on above: Performed By: #### B MP #### [facility] [address] [place] [address] CO2 [Moles/Vol] 22 mmol/L Normal 20-31 [facility] Comment on above: Performed By: #### B MP #### [facility] [address] [place] [address] Creatinine [Mass/Vol] 1.02 mg/dL Normal 0.70-1.20 [facility] Comment on above: Performed By: #### B MP #### [facility] [address] [place] [address] GFR/1.73 sq M predicted among blacks MDRD (S/P/Bld) [Vol rate/Area] mL/min/{1.73_m2} Normal >60 [facility] Comment on above: Result Comment: >60 mL/min/1.73m2 EGFR, calc. for ages 18 and older using the MDRD formula (not corrected for weight), is valid for stable renal function. Performed By: #### B MP #### [facility] [address] [place] [address] GFR/1.73 sq M.predicted MDRD (S/P/Bld) [Vol rate/Area] mL/min/{1.73_m2} Normal >60 [facility] Comment on above: Result Comment: >60 mL/min/1.73m2 EGFR, calc. for ages 18 and older using the MDRD formula (not corrected for weight), is valid for stable renal function. Performed By: #### B MP #### [facility] [address] [place] [address] Glucose [Mass/Vol] 98 mg/dL Normal 70-99 [facility] Comment on above: Performed By: #### B MP #### [facility] [address] [place] [address] Potassium [Moles/Vol] 4.5 mmol/L Normal 3.4-4.9 [facility] Comment on above: Performed By: #### B MP #### [facility] [address] [place] [address] Sodium [Moles/Vol] 142 mmol/L Normal 135-144 [facility] Comment on above: Performed By: #### B MP #### [facility] [address] [place] [address] Urea nitrogen [Mass/Vol] 21 mg/dL Normal 8-23 [facility] Comment on above: Performed By: #### B MP #### [facility] [address] [place] [address] CBCOrdered By: Tone bo on 07-08-2019 Erythrocyte distribution width (RBC) [Ratio] 14.0 % 11.5 - 14.5 % [employer]: Hematocrit (Bld) [Volume fraction] 42.1 % 42 - 52 % [employer]: Hemoglobin (Bld) [Mass/Vol] 14.1 g/dL 14 - 18 g/dL [employer]: MCH (RBC) [Entitic mass] 29.9 pg 27 - 31.3 pg [employer]: MCHC 33.6 % 33 - 37 % [employer]: MCV (RBC) [Entitic vol] 89.0 fL 80 - 100 fL [employer] Phone: Platelets (Bld) [#/Vol] 140 10*3/uL 130 - 400 K/uL [employer] Phone: RBC (Bld) [#/Vol] 4.73 10*6/uL [employer] Phone: WBC (Bld) [#/Vol] 5.7 10*3/uL 4.8 - 10.8 K/uL [facility] [employer] Work Phone: CBC With Platelet No Differe ntialon 07-08-2019 Erythrocyte distribution width (RBC) [Ratio] 14.0 % Normal 11.5-14.5 [facility] Comment on above: Performed By: #### C BCND #### [facility] [address] [place] [address] Hematocrit (Bld) [Volume fraction] 42.1 % Normal 42.0-52.0 [facility] Comment on above: Performed By: #### C BCND #### [facility] [address] [place] [address] Hemoglobin (Bld) [Mass/Vol] 14.1 g/dL Normal 14.0-18.0 [facility] Comment on above: Performed By: #### C BCND #### [facility] [address] [place] [address] MCH (RBC) [Entitic mass] 29.9 pg Normal 27.0-31.3 [facility] Comment on above: Performed By: #### C BCND #### [facility] [address] [place] [address] MCHC (RBC) [Mass/Vol] 33.6 % Normal 33.0-37.0 [facility] Comment on above: Performed By: #### C BCND #### [facility] [address] [place] [address] MCV (RBC) [Entitic vol] 89.0 fL Normal 80.0-100.0 [facility] Comment on above: Performed By: #### C BCND #### [facility] [address] [place] [address] Platelets (Bld) [#/Vol] 140 10*3/uL Normal 130-400 [facility] Comment on above: Performed By: #### C BCND #### [facility] [address] [place] [address] RBC (Bld) [#/Vol] 4.73 10*6/uL Normal 4.70-6.10 [facility] Comment on above: Performed By: #### C BCND #### [facility] [address] [place] [address] WBC (Bld) [#/Vol] 5.7 10*3/uL Normal 4.8-10.8 [facility] Comment on above: Performed By: #### C BCND #### [facility] [address] [place] [address] FLUORO FOR SURGICAL PROCEDUR ESon 07-08-2019 FLUORO [...] [place] MD 07/09/[address] [facility] PROTIME-INROrdered By: Carlos Redd on 07-08-2019 INR Coag (PPP) [Relative time] 1.1 {INR} [employer] Phone: Comment on above: Warfarin Therapy IN R Therapeutic: 2.0-3.0 With Mechanical Valve: >2.5 Low-intensity Therapeutic Range: 1.5-2.0 Mod-intensity Therapeutic Range: 2.0-3.0 High-intensity Therapeutic Range: 2.5-3.5 HIgh-intensity Therapeutic Range: 3.0-4.0 Common Critical/Alarm Value: 5.0 Common Upper Limit Reported: 10.0 Effective 02/06/2019: Please note methodology and/or reference ranges have changed. PT Coag (PPP) [Time] 14.1 s [employer] Phone: Comment on above: Effective 02/06/19 Please note methodology and/or reference ranges have changed. Partial Thromboplastin Timeo n 07-08-2019 aPTT Coag (Bld) [Time] 33.3 s Normal 24.4-36.8 [facility] Comment on above: Result Comment: Effe ctive 02/13/2019: Please note methodology and/or reference ranges have changed. aPTT - Heparin Therapeutic Range: 74.0 - 106 seconds Performed By: #### P TT #### [facility] [address] [place] [address] Prothrombin Timeon 9 INR Coag (PPP) [Relative time] 1.1 {INR} Normal [facility] Comment on above: Result Comment: Warf jessika Therapy INR Therapeutic: 2.0-3.0 With Mechanical Valve: >2.5 Low-intensity Therapeutic Range: 1.5-2.0 Mod-intensity Therapeutic Range: 2.0-3.0 High-intensity Therapeutic Range: 2.5-3.5 HIgh-intensity Therapeutic Range: 3.0-4.0 Common Critical/Alarm Value: 5.0 Common Upper Limit Reported: 10.0 Effective 02/06/2019: Please note methodology and/or reference ranges have changed. Performed By: #### P T #### [facility] [address] [place] [address] PT Coag (PPP) [Time] 14.1 s Normal 12.3-14.9 [facility] Comment on above: Result Comment: Effe ctive 02/06/19 Please note methodology and/or reference ranges have changed. Performed By: #### P T #### [facility] [address] [place] [address] CHEST AND LATERALon 02-07-20 18 CHEST AND LATERAL [facility] [address] [place] [address] Patient Name: INDIO GUEVARA : 1945Sex: MAge: Race: WhiteMRN: [id number]. Location: OUTPPatient Status: DVisit #: [id number] Date: 02/06/2018 7:00:00 AMCompleted Date: 02/06/2018 09:23 AMRequesting Provider: SARINA GUZMAN Attending Provider: SAM GREER Report Copy To: Signs & Symptoms: Post Pacemaker/AICD PlacementHistory: Patient history not availableComments: Check Pacemaker/AICD Lead Position, Chest X-ray PA \EANDE\ LAT in Dept ;DO NOT lift affected arm above shoulder. S/P pacemaker/ICD implant. Verify lead placementExam: CHEST AND LATERALAccession #: [id number] CHEST AND LATERAL 02/06/2018 9:23 AM EDT [...] atelectasis Electronically signed by:Florence Vinson. Transcribed by: [email or web address], User Resident: Electronically Signed by: FLORENCE VINSON @ 02/06/2018 02:44 PM Normal [facility] Comment on above: Order Comment: Check Pacemaker/AICD Lead Position, Chest X-ray PA \EANDE\ LAT in Dept ;DO NOT lift affected arm above shoulder. S/P pacemaker/ICD implant. Verify lead placement Cardiovascular Lab Reporton 02-06-2018 Cardiovascular Lab Report [facility] Patient Name: Indio Guevara [facility] MR #: [id number] Physician: Sam Groves of St[facility] GreerMedicine Service Date: 02/05/2018Division of Birthdate: 6Cardiology Room #: 3CD [id number] CardiovascularServicesUniversit y VhcnrsyFanpad[address] [place], [place] [address] Fax Cardiovascular Laboratory ReportINDICATION: Mr. Indio Guevara is a 72-year-old gentleman, who I saw inthe [place] office. He sees Dr. Long. He was referred for a CRTDprocedure. He has ejection fraction of 20% to 25%, chronic low ejectionfraction as well, he has a left bundle-branch block with a QRS duration ofapproximately 170 milliseconds.I saw him in the [place] office, went over the procedure, risks andbenefits [...] tethered with 0 silk.At that point, a 10-Montserratian docking station was placed.A long sheath with [...] minutes of fluoroscopy. The device was a [id number], serial number [id number]. The atrial lead is a Medtronic [id number]. The ventricular lead is a Medtronic [id number] [id number]. The leftventricular lead is a Medtronic [id number], serial number [id number].Sensed P and R waves were 3.5 mV with the P waves 7 mV, the R-wave in theRV and 9.4, the LV impedance 627 ohms in the atrium 642, in the in the coronary sinus. Pacing threshold at [...] 02/05/2018/01:25 P/Sam Greer M.D.Date Trans: 02/06/2018 06:47 [id number]: Ren Marcial D.O. [address] [place], [place] [address] [address] [facility] Vital Signs Date Time Vital Sign Value Performing Clinician Faci lity 08-07-2019 16:25-0500 Diastolic blood pressure 78 mm[Hg] Enrique Haines MD Work Phone: [employer] Work Phone: 08-07-2019 16:25-0500 Heart rate 78 /min Enrique Haines MD Work Phone: [employer] Work Phone: 08-07-2019 16:25-0500 Respiratory rate 20 /min Enrique Haines MD Work Phone: [employer] Work Phone: 08-07-2019 16:25-0500 SaO2% (BldA) [Mass fraction] 95 % Enrique Haines MD Work Phone: [employer] Work Phone: 08-07-2019 16:25-0500 Systolic blood pressure 148 mm[Hg] Enrique Haines MD Work Phone: [employer] Work Phone: 08-07-2019 10:51-0500 Body height 184.2 cm Enrique Haines MD Work Phone: [employer] Work Phone: 08-07-2019 10:51-0500 Body mass index (BMI) [Ratio] 34.78 kg/m2 Enrique Haines MD Work Phone: [employer] Work Phone: 08-07-2019 10:51-0500 Body temperature 97.59 [degF] Enrique Haines MD Work Phone: [employer] Work Phone: 08-07-2019 10:51-0500 Body weight 117.94 kg Enrique Haines MD Work Phone: [employer] Work Phone: 07-08-2019 15:25-0500 Body temperature 98.01 [degF] Enrique Haines MD Work Phone: [employer] Work Phone: 07-08-2019 15:25-0500 Diastolic blood pressure 94 mm[Hg] Enrique Haines MD Work Phone: [employer] Work Phone: 07-08-2019 15:25-0500 Heart rate 78 /min Enrique Haines MD Work Phone: [employer] Work Phone: 07-08-2019 15:25-0500 Respiratory rate 16 /min Enrique Haines MD Work Phone: [employer] Work Phone: 07-08-2019 15:25-0500 SaO2% (BldA) [Mass fraction] 97 % Enrique Haines MD Work Phone: [employer] Work Phone: 07-08-2019 15:25-0500 Systolic blood pressure 158 mm[Hg] Enrique Haines MD Work Phone: [employer] Work Phone: 07-08-2019 11:45-0500 Body height 182.9 cm Enrique Haines MD Work Phone: [employer] Work Phone: 07-08-2019 11:45-0500 Body mass index (BMI) [Ratio] 35.26 kg/m2 Enrique Haines MD Work Phone: [employer] Work Phone: 07-08-2019 11:45-0500 Body weight 117.94 kg Enrique Haines MD Work Phone: [employer] Work Phone: Encounters Encounter Date Encounter Type Care Provider Facility Start: 01-01-2025 End: 01-01-2025 ambulatory ARELIS [facility] Start: 12-25-2024 End: 12-25-2024 ambulatory [facility] Start: 12-09-2024 End: 12-09-2024 ambulatory [facility] Start: 12-01-2024 End: 12-31-2024 Pre-admission assessment [facility] Start: 11-20-2024 ambulatory [facility] Start: 10-28-2024 ambulatory [facility] Start: 10-21-2024 ambulatory [facility] Start: 09-17-2024 ambulatory [facility] Start: 08-19-2024 ambulatory [facility] Start: 07-31-2024 ambulatory [facility] Start: 07-25-2024 ambulatory [facility] Start: 07-08-2024 End: 07-08-2024 ambulatory [facility] Start: 07-04-2024 ambulatory [facility] Start: 06-23-2024 ambulatory [facility] Start: 06-11-2024 ambulatory [facility] Start: 05-16-[address] [facility] Start: 05-08-2024 ambulatory JOSE ANGEL REY [facility] Start: 03-03-[address] [facility] Start: 03-03-2024 Encounter for preprocedural cardiovascular examination [facility] Start: 01-25-[address] [facility] Start: 01-14-[address] [facility] Start: 01-07-[address] [facility] Start: 01-22-2023 ambulatory Nino Romoi ty:[facility] Start: 07-25-2022 End: 07-26-2022 ambulatory CRISSY KINGSLEY Facility:[facility] Start: 07-13-2022 End: 07-14-[address] CASSANDRA LONG Facility:[facility] Start: 11-11-[address] CASSANDRA LONG Fac ility:[facility] Start: 11-08-2021 End: 11-09-[address] CASSANDRA LONG Facility:[facility] Start: 11-04-2021 End: 11-05-[address] CASSANDRA LONG Facility:[facility] Start: 10-04-2021 ambulatory Nino BAE Facility :[facility] Start: 10-04-2021 End: 10-05-2021 ambulatory Nino BAE Facility:[facility] Start: 09-30-2021 End: 10-01-[address] RANDALL HEARD JR Facility:[facility] Start: 08-07-2019 End: 08-07-[address] [facility] Start: 08-07-2019 End: 08-07-2019 Subsequent hospital visit by physician Enrique Haines MD Work Phone: [facility] Comment on above: Post-op pain (Primar y Dx) Start: 08-07-2019 End: 08-10-[address] [facility] Start: 08-07-2019 End: 08-09-2019 Subsequent hospital visit by physician Enrique Haines MD Work Phone: [facility] Comment on above: Pain Start: 07-08-2019 End: 07-08-2019 Patient encounter procedure ENRIQUE HAINES [facility] Start: 07-08-2019 End: 07-08-2019 Subsequent hospital visit by physician Enrique Haines MD Work Phone: [facility] Start: 07-08-2019 End: 07-11-2019 Patient encounter procedure ENRIQUE HAINES [facility] Start: 02-05-2018 End: 02-06-2018 Patient encounter SAM GREER Facility:[facility] Start: 01-11-2018 End: 01-12-2018 Patient encounter PROVIDER UNKNOWN Facility:[facility] Start: 01-10-2018 End: 01-11-2018 Patient encounter DEFAULT PHYSICIAN Facility:[facility] Procedures Date Procedure Procedure Detail Performing Clinician Start: 09-30-[address] CASSANDRA LONG Comment on above: Performed By: #### P SAD #### [facility] [address] [place] [address] Dr. Javy Brian Start: 08-07-2019 INCENTIVE SPIROMETRY [...] 08/22/2019 Office Visit Neurosurgery Enrique Haines MD [address] [place] [address] [id number] [employer] Start: 07-11-2019 End: 07-11-2019 Patient encounter procedure 07/11/2019 Office Visit Neurosurgery Enrique Haines MD [address] [place] [address], [address] [id number] [employer] Start: 03-30-2019 Influenza vaccination Flu vaccine (# 1) [employer]: Start: 01-19-2019 Annual Wellness Visi t (AWV) Annual Wellness Visit (AWV) [employer] Phone: Start: 2011 Pneumococcal 65+ yea rs Vaccine (1 of 1 - PPSV23) Pneumococcal 65+ years Vaccine (1 of 1 - PPSV23) [employer] Phone: Start: 02-28-1996 Colon cancer screen colonoscopy Colon cancer screen colonoscopy [employer] Phone: Start: 02-28-1996 Shingles Vaccine (1 of 2) Lester gles Vaccine (1 of 2) [employer] Phone: Start: 1986 Lipid screen Lipid screen dough [facility] Work Phone: Start: 1957 DTaP/Tdap/Td vaccine (1 - Tdap) DTaP/Tdap/Td vaccine (1 - Tdap) [employer] Phone: Start: 1945 Hepatitis C screen Hepatitis C scree n [employer] Work Phone: EKG 12 Lead EKG 12 Lead ECG Routine 07/08/2019 12:00 PM EST [employer] Work Phone: Incentive spirometry [email or web address] Work Phone: Comment on above: Every 2hr while awak e until discontinued starting 07/08/2019 Every 2hr while awak e until discontinued starting 08/07/2019 Initiate Oxygen Ther apy Protocol [employer] Phone: Comment on above: Daily until disconti nued starting 07/08/2019 Daily until disconti nued starting 08/07/2019 Phase I & II - meter ed glucose [employer] Phone: Comment on above: As Needed until disc ontinued starting 07/08/2019 As Needed until disc ontinued starting 08/07/2019 End: 07-08-2019 Pulse Oximetry Spot Check Pulse Oximetry Spot Check Respiratory Care Routine One Time for 1 Occurrences starting 07/08/2019 until 07/08/2019 [employer] Phone: Comment on above: One Time for 1 Occur rences starting 07/08/2019 until 07/08/2019 End: 08-07-2019 Pulse Oximetry Spot Check Pulse Oximetry Spot Check Respiratory Care Routine One Time for 1 Occurrences starting 08/07/2019 until 08/07/2019 [employer] Phone: Comment on above: One Time for 1 Occur rences starting 08/07/2019 until 08/07/2019 Payers Date Payer Category Payer Medicare MEDICARE MEDICAR E PART A AND B xxxxxxxxxxx 2017-Present [phone] [address] [address] [place] [address] xxxxxxxxxxx [id number] 2017 Unknown [employer] M [employer] M[employer]UAL [address] xxxxxxxxxxxx 2017-Present [phone] [address] [place] [address] xxxxxxxxxxxx [id number] 2017 Medicare [id number] 1959 Medicare [id number] 1959 Self-pay 1959 Unknown [id number] 1945 Unknown [id number] .182 1946 Unknown [id number] .182 1946 Unknown [id number] .182 1946 Unknown [id number] [id number] .182 1946 Unknown [id number] [id number] .593 1946 Unknown [id number] [id number] .593 1946 Unknown [id number] [id number] .593 1946 Unknown [id number] [id number] .593 1946 Unknown [id number] [id number] .593 1945 Unknown [id number] [id number] .593 1946 Unknown [id number] [id number] .727 1945 Unknown [id number] [id number] .727 Medicare [id number] Private Health Insurance [id number] Unknown Social History Date Type Detail Facility Start: 07-07-2019 End: 08-08-2019 Tobacco smoking status NHIS Never smoker [employer]: Start: 07-07-2019 End: 08-08-2019 Alcohol intake Current non-drinker of alcohol (finding) [employer] Phone: Sex Assigned At Not on file [employer] Phone: Start: 12-28-2015 Tobacco smoking status Ex-smoker (fi nding) [facility] Comment on above: 40 years ago Sexual Orientation [facility] Sex Assigned At Male [facility] Start: 12-09-2015 Sex Male (finding) [facility] Medical Equipment Procedure Code Equipment Code Equipment Origin al Text Equipment Identifier Dates Lead Trial Compc t Perc 1x8 [id number] Start: 07-08-2019 Stimulator Intel lis Adaptive Stim Mri - [id number] Start: 08-07-2019 Lead Pain 1x8 60 cm Vectris [id number] Start: 08-07-2019 Lead Pain 1x8 60 cm [employer]ris [id number] Start: 08-07-2019 Clinical Notes 07-08-2019 to 01-01-2025 Alexandra Cody RN - 08/07/2019 4:19 PM Oralia Nolasco RN - 07/08/2019 3:27 PM Oralia Smith RN - 07/08/2019 3:08 PM Fouzia Talbert RN - 07/07/2019 2:25 PM EST Note Date & Type Note Facility 01-01-2025 Note [place] Cardiology - [facility] Patient in clinic today for [...] 100mg bid x 2 weeks. Jose Angel Rye MD Cardiac Electrophysiology A/P: #[id number] s/p BiV-ICD [...] in clinic in 2-3 months. Arelis Ridley APRN-[facility] Cardiovascular Ut (more content not included)... [facility] 01-01-2025 Note Patient is here toda y in office for a wound check. S/P generator change on 12/25/2024 Patient denies fever or chills, small amount of pain 1/10 occasionally, Redness noted around Tegaderm. Small amount of discharge noted on bandage. Review of Systems Constitutional: Negative. [facility] 12-25-2024 Note BiV-ICD GENERATOR RE PLACEMENT PROCEDURE [...] weeks. 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 Use of blood products discussed with patient who. Additional Equipment Requests [facility] 12-25-2024 Note This report has been cancelled. [facility] 12-09-2024 Note [place] Cardiology Note [facility] Reason for follow-up: [...] in follow up after recent admission to [facility] when he developed hypotension after [place] for urologic surgery. He has history of non ischemic Cardiomyopathy and systolic heart failure with cath in 2007 at [facility] showing no significant CAD when his EF was 30%. He had a recent stress test at Dr Marcial's office which was negative. He has been maintained on coreg and Entresto maximum dosage for >4 months now. On his recent echocardiogram at [facility] there was reduced EF 30% and [...] Date BACK SURGERY (more content not included)... [facility] 11-21-2024 Note Provider called pt a nd son today for concerns of worsening heart failure index noted on device interrogation. Pt states that he feels well, denied any water retention, leg edema, or weight gain. Denied worsening SOB or orthopnea. States he has actually lost about 20-30 pounds on purpose, and remains fairly active. Therefore, message sent to [place] cardiology staff, Dr Long and Dr Rey with update of pt status, device at 3 month battery life and to monitor for upcoming device exchange for battery. Pt voiced understanding of red flag symptoms to call cardiology for- increased SOB, Orthopnea, weight gain, fatigue, or water retention. Melyssa Do [facility] Cardiology Available 7a-3pm via [employer] [phone] [facility] 11-21-2024 Note Copy of Medtronic Op tiVol report 11/17/24 Margie Stack PA-C [facility] Cardiovascular Medicine [phone] [facility] 08-07-2019 History of Present illness Narrative disch inst and 2 presc given and explained to pt and son documented in this encounter [employer] [employer]: 08-07-2019 Hospital Discharge instructions Alexandra Cody RN - 08/07/2019 Ice packs to the incision Shower on Sunday documented in this encounter [employer] Phone: 07-08-2019 History of Present illness Narrative [...] notified of above. documented in this encounter [employer] Phone: 07-08-2019 Hospital Discharge instructions Oralia Griffin RN - 07/08/2019 May shower and ambulate. Follow instructions of medtronic documented in this encounter [employer]: Evaluation + Plan note No data available for this section [facility] Evaluation note Diagnosis Post-op pain- Primary Other acute postoperative pain documented in this encounter [employer]: evaluation note* Diagnosis Pain Generalized pain documented in this encounter [employer] Phone: Hospital Discharge instructions No data available for this section [facility] Progress note No data available for this section [facility] Summary Purpose Family History No Family History Records FoundNo Family History Records FoundNo Family History Records FoundNo Family History Records FoundNo Family History Records Found No data available for this section Advance Directives Documents on File Type Date Recorded 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 Advance Directives and Living Will Power of Gate Attendant Reason for Referral Status Reason Specialty Diagnoses / Procedures Referred By Contact Referred To Contact Pending Review Radiology Diagnoses Pain Procedures Fluoro For Surgical Procedures Enrique Haines MD [address] [place] [address] Additional Source Comments (unrecognized sect ion and content) No Status Records FoundNo Status Records FoundNo Status Records FoundNo Status Records FoundNo Status Records Found INFORMATION SOURCE (unrecogn ized section and content) DATE CREATED AUTHOR 02/12/2018 [facility] DATE CREATED AUTHOR AUTHOR'S ORGANIZ ATION 08/09/2019 [facility] DATE CREATED AUTHOR AUTHOR'S ORGANIZ ATION 07/28/2022 [facility] DATE CREATED AUTHOR AUTHOR'S ORGANIZ ATION 09/22/2022 [facility] DATE CREATED AUTHOR AUTHOR'S ORGANIZ ATION 01/02/2025 [facility] Reason for Visit (unrecogniz ed section and content) Status Reason Specialty Diagnoses / Procedures Referre d By Contact Referred To Contact Diagnoses RADICULOPATHY, STENOSIS, SPONDYLOSIS Procedures CO NJX DX/THER SBST INTRLMNR CRV/THRC W/IMG GDN D.C.S. (DORSAL COLUMN STIMULATOR) TRIAL 1 HOUR/ 1 C-ARM/ [facility] (PAT SAME DAY OF SURGERY) Enrique Haines MD [address], [address] [place] [address] [facility] Status Reason Specialty Diagnoses / Procedures Referre d By Contact Referred To Contact Diagnoses Cervical spondylosis with myelopathy and radiculopathy RADICULOPATHY SPONDYLOSIS Procedures CO IMPLANT NEUROSTIM/WATER RESOURCES ENGINEER PERMANENT DCS (DORSAL COLUMN STIMULATOR)PLACEMENT, 1 HOUR/ 1 C-ARM/ [employer] [facility], *NEED MAGNET FOR PACEMAKER, PAT COMPLETED 07/08/19 Enrique Haines MD [address] [facility], [address] [place] [address] [facility] Patient Care team informatio n (unrecognized section and content) Personnel Name: ANIKET LOPEZ DO REN Address: [address] [place] [phone] [employer]: FOR RECORDS PERTAINING TO PATIENTS WHO [...] BE BASED ON THE PRIMARY CLINICAL RECORDS. [employer] provides no warranty or guarantee of the accuracy or completeness of information in this document.
[2025-01-26 09:41] VITALS: BP 133/87; PULSE 69; TEMP 36.3; O2SAT 95
[2025-01-26 10:07] VITALS: PULSE 71; O2SAT 100
[2025-01-26 10:08] VITALS: BP 118/79; BP 122/75; PULSE 68; O2SAT 96
[2025-01-26] MEDS: 0.9 % SODIUM CHLORIDE 10 ML SYRINGE - SALINE FLUSH INJ (10:10)
[2025-01-26] MEDS: IOHEXOL 240 MG/ML - 10 ML VIAL INJ (10:11)
[2025-01-26] MEDS: DEXAMETHASONE SOD PHOS 10 MG/ML VIAL INJ (10:11)
[2025-01-26] MEDS: BUPIVACAINE HCL 0.25% PF 25 MG/10 ML VIAL INJ (10:11)
[2025-01-26] MEDS: LIDOCAINE HCL 2% 400 MG/20 ML MDV INJ (10:11)
--- NOTE | 2025-01-26 10:14 | P.ON_ITS ---
Date of procedure: 01/26/25 Pre-op diagnosis: Pain due to lumbar stenosis with neurogenic claudication Post-op diagnosis: same as pre-op Procedure: Procedure: Right L3-4, L4-5 transforaminal epidural steroid injection Medications: Bupivacaine 0.25% 2cc, lidocaine 2% 1cc, depomedrol 80mg The patient was seen and examined in the preoperative holding area.? Informed consent was obtained and placed on the chart.? Patient was brought to the medical procedure unit and placed in the prone position where a timeout was completed verifying the correct patient, procedure site, position, and planned special equipment using sterile aseptic technique.? Under direct fluoroscopic visualization a 25-gauge Quincke tipped spinal needle was advanced to the designated neural foramen where contrast dye was injected to show adequate spread.? The needle was inserted at level right L3-4. There was no evidence of vascular or adverse uptake.? Epidural spread was appreciated.? The above- mentioned injectate was then placed in a 1.5 mL aliquot preceded by negative aspiration.? The needle was removed. The needle was inserted and the procedure repeated at level right L4-5.? The surgery site was covered.? Patient was taken to the postprocedural recovery area and monitored for an appropriate length of time before found suitable for discharge in the accompaniment of a responsible adult. Anesthesia: Local Surgeon: Gill Coronado Pathology: none sent Condition: stable Disposition: no change
== END 2025-01-26 10:18 | disposition home or self-care (01) ==
LOC: SURGOUT 08:50
PROVIDERS: PCP Internal Medicine; Visit Provider Anesthesiology
DX: M48.062 Spinal stenosis, lumbar region with neurogenic claudication (principal); M54.50 Low back pain, unspecified
CPT/HCPCS: 64483; 64484; J0665; J1100; Q9966

== ENCOUNTER 2025-02-04 14:47 | Outpatient (OUT) | payer MEDICARE, OTHER, SELFPAY ==
--- NOTE | 2025-02-04 15:09 | PM.CN ---
Consult Note: HPI Data of Consult Patient: known to practice within the last 3 years Consult date: 02/04/25 Requesting Physician: Gissel Sequeira NP Primary Care Provider: GIAN MARCIAL DO Consult Narrative Reason for consult: low back pain Narrative: pleasant 79 year old male presents for evaluation of chronic thoracic and lumbar pain, hx of l4,5,S1 fusion and medtronic SCS implant as of 2019, who has failed to benefit from > 6 weeks of PT, provider guided HEP, heat, ice, tylenol, NSAIDs. currently utilizing duloxetine, lyrica, tylenol, baclofen with mild relief. pain today 6/10 aching, pain significantly increased with standing and walking. radicular pain well controlled with scs per pt. denies falls or injury over the last 6 months. of note pt has a medtronic pacemaker as well. recently underwent thoracic xray and lumbar CT which shows significant multilevel spondylosis, DDD, and stenosis. pt underwent right L3/4 L4/5 TFESI with 80% improvement at this time. continues to note moderate to severe low back pain with standing, walking, AM/PM. pain today 4-5 aching increasing to 10/10 in low back. cc:: CC: Gissel Sequeira NP Review of Systems ROS Status of ROS 10 or more systems reviewed and unremarkable except as noted in history and below Musculoskeletal Reports: back pain and extremity pain PFSH [facility] Medical History (Updated 11/06/24 @ 14:08 by Razia Nguyen RN) Pacemaker ?Z95.0 - Presence of cardiac pacemaker (ICD-10) Social History Smoking status: Never smoker Meds Home Medications and Allergies Home Medications ?Medication ?Instructions ?Recorded ?Confirmed ?Type allopurinol 300 mg tablet 300 mg PO DAILY 11/06/24 01/26/25 History dapagliflozin propanediol 10 mg 10 mg PO DAILY 11/06/24 01/26/25 History tablet (Farxiga) duloxetine 60 mg capsule,delayed 60 mg PO DAILY 11/06/24 01/26/25 History release (Cymbalta) famotidine 40 mg tablet 40 mg PO DAILY 11/06/24 01/26/25 History finasteride 5 mg tablet 5 mg PO DAILY 11/06/24 01/26/25 History furosemide 20 mg tablet mg 11/06/24 History hydroxychloroquine 200 mg tablet 200 mg PO DAILY 11/06/24 01/26/25 History lubiprostone 8 mcg capsule 8 mcg PO BID 11/06/24 01/26/25 History montelukast 10 mg tablet 10 mg PO DAILY 11/06/24 01/26/25 History pregabalin 200 mg capsule 200 mg PO Q12H 11/06/24 01/26/25 History rosuvastatin 10 mg tablet 10 mg PO DAILY 11/06/24 01/26/25 History sacubitril 49 mg-valsartan 51 mg 1 tab PO BID 11/06/24 01/26/25 History tablet (Entresto) Allergies Allergy/AdvReac Type Severity Reaction Status Date / Time No Known Drug Allergies Allergy Verified 01/26/25 09:40 Exam Constitutional Documenting provider has reviewed patient's vital signs: yes Common normals: no apparent distress, oriented x3, healthy appearing, alert and well nourished General appearance: cooperative HENMT Common normals: normocephalic, hearing grossly normal bilaterally and moist oral mucous membranes Head and scalp: normocephalic Eye Common normals: PERRL Pupil: PERRL Neck & C-Spine Common normals: full ROM General: normal visual inspection Chest Common normals: inspection of chest normal Respiratory Common normals: normal respiratory effort, no retractions and no use of accessory muscles Back & Pelvis Thoracic spine/upper back: ROM limited, pain with ROM and thoracic spinal tenderness T-spine tenderness location: T10, T11 and T12 Lumbar spine/lower back: ROM limited, pain with ROM, lumbar spinal tenderness Lumbar spinal tenderness location: L1, L2 and L3 and straight leg raise negative bilaterally Other: strength 5/5 in BLE sensation intact BLE Neuro Common normals: oriented x3 Sensorium/orientation: alert Psych Common normals: mental status grossly normal, thought process normal, cooperative, affect normal, speech normal and activity/motor behavior normal Speech: normal speech Thought process: normal thought process Results Additional Findings Additional findings: If on a controlled substance or opioids, I have checked an [place]AR[place] report on this patient and there are no aberrancies noted in the prescribing history.??If on a controlled substance or opioid a drug screen was completed and reviewed within the last year, and if there has not been a drug screen completed we ordered one today to monitor higher risk, state monitored pain medication use. As part of providing excellent, safe, comprehensive care, the following was completed at our patient's visit: 1. A medication reconciliation and review to ensure accurate knowledge of current/active medications, including asking our patients to inform us about any pcyk-rde-dmakmtn medications or herbal remedies/nutritional supplements/alternative remedies. 2. A review to specifically ensure our patients have had annual screening for screening for depression, screening for tobacco use, and screening for unhealthy alcohol use. For concerning screenings had a discussion with the patient, provided patient education, and recommended follow-up with primary care provider when appropriate. If patient noted with a risk of falling, they received education on strength, gait, and balance training to prevent future risk of falling. Portions of this note may have been carried over from the previous visit and updated as appropriate. Please note this office utilizes paper charting in addition to the electronic medical record. A list of current medications, vitals, and PMH is available there as the clinical staff outside of myself do not have access to [employer] charting during the clinic day operations. As part of providing quality comprehensive care the current medications, vitals, and PMH were reviewed in the paper chart. Assessment and Plan Assessment and Plan (1) Lumbar spondylosis: Assessment and Plan: The patient has had over 3 months of moderate to severe low back pain with functional impairment and inadequate response to conservative care including NSAIDS (unless there are contraindication such as concurrent blood thinners), multiple oral or topical pain medications, and home exercise program/physical therapy.? Patient has completed >6 weeks of guided home exercise program and/or formal physical therapy program without relief of their symptoms.? The Oswestry Disability Index was completed, and the patient scored a 40%.? The patient noted the following:?? moderate to severe pain impacting standing, walking, ADLs, sleeping, social life, travel We discussed the risks and benefits of the procedure with the patient, and we are NOT planning on using sedation as outlined in the guidelines from Medicare unless there is a documented reason that sedation would be strongly recommended.?? ?The procedure will be completed with fluoroscopic guidance.? (2) Lumbar stenosis with neurogenic claudication: Assessment and Plan: 01/26/25 right L3/4 L4/5 TFESI 80% improvement ongoing (3) Failed back syndrome: (4) S/P insertion of spinal cord stimulator: (5) Thoracic spondylosis: Plan 79 year old male with chronic thoracic and lumbar pain post scs implant and l4,5,s1 fusion with severe pain unresponsive to > 6 weeks of PT, provider guided HEP, heat, ice, tylenol, nsaids. proceed with bilateral L1/2 L2/3 facet medial branch block x2 in consideration of RFA. continue current medications. f/u after each injection
== END 2025-02-04 14:48 | disposition home or self-care (01) ==
LOC: PM 14:48
PROVIDERS: PCP Internal Medicine; Visit Provider Nurse Practitioner
DX: M47.816 Spondylosis without myelopathy or radiculopathy, lumbar region (principal); M48.062 Spinal stenosis, lumbar region with neurogenic claudication; M96.1 Postlaminectomy syndrome, not elsewhere classified; M47.814 Spondylosis without myelopathy or radiculopathy, thoracic region; Z96.82 Presence of neurostimulator
CPT/HCPCS: G0463

== ENCOUNTER 2025-02-25 12:54 | Emergency (ER) | payer MEDICARE, OTHER, SELFPAY ==
--- OUTSIDE RECORDS SUMMARY | 2025-02-17 13:00 | XMS_ITS | Encounter Summary ---
Author Organization [facility] Address [address] [place] [address] Care Team Providers Care Ammonia Solution Preparer Name Role Phone Ren Medrano MD Primary Care Provider [phone] Encounter Details Date Type Department Care Team (Latest Contact Info) Description 02/17/2025 1:00 PM EDT Ancillary Procedure [address] [address] Encounter for implantable defibrillator reprogramming [...] Description 03/03/2025 11:15 AM EDT Office Visit [facility] [address] [place] [address] Jose Angel Rey MD [address] [place] [address] documented as of this encounter [...] Angel Rey MD CV IMPLANTABLE CARDIAC DEVICE [place] OCEDURES Final Result documented in this encounter Visit Diagnoses Diagnosis Encounter for implantable defibrillator reprogramming or check Fitting and adjustment of automatic implantable cardiac defibrillator documented in this encounter Care Teams Ammonia Solution Preparer Relationship Specialty Start Date End Date Ren Medrano MD [address] [place] [phone] PCP - General 06/21/22 documented as of this encounter
--- OUTSIDE RECORDS SUMMARY | 2025-02-25 13:01 | XMS_ITS | Clinical Summary ---
Author Organization [facility] Address [address] [place], [place] [id number] Care Team Providers Care Donor Services Manager Name Role Phone Marcela Carter DO, Charles [...] 75+ series) 2021 Covid-19 Vaccine (1 - 2023- season) 2024 Advance Directive Discussion 07/30/2024 Influenza Vaccine (#1) 2025 Care Teams Donor Services Manager Relationship Specialty Start Date End Date Ren Medrano Jr., DO [address] [place] [address] PCP - General 04/03/03
--- OUTSIDE RECORDS SUMMARY | 2025-02-25 13:01 | XMS_ITS | Clinical Summary ---
Author Organization [facility] Address [address] [place] [address] Care Team Providers Care Principal Programmer Name Role Phone Unavailable Primary Care Provider [...]
--- OUTSIDE RECORDS SUMMARY | 2025-02-25 13:01 | XMS_ITS | Clinical Summary ---
Author Organization [facility] Address [address] [place] [address] Care Team Providers Care Computer Forensics Investigator Name Role Phone Ren Medrano MD Primary Care Provider [phone] Allergies Active Allergy Reactions Criticality Noted Date [...] (six) hours during the day. 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 [address] [place] [address] Jose Angel Rey MD Generator change ICD BiV [[id number]] 12/25/2024 12:41 PM EDT - 12/25/2024 7:32 PM EDT Hospital Encounter [facility] [address] [place] [address] Jose Angel Rey MD NICM (nonischemic cardiomyopathy) (CMS/HCC) Discharge Disposition: Home or Self Care () 12/25/2024 Orders Only [facility] [address] [place] [address] Latrice Jewell RN 12/25/2024 Travel 12/17/2024 Orders Only [facility] [place] [facility] [address] [place] [address] Jose Angel Rey MD 12/16/2024 Travel 12/09/2024 11:00 AM EDT Office Visit [facility] [address] [place] [phone] Jose Angel Rey MD NICM (nonischemic cardiomyopathy) (CMS/HCC) from Last 3 Months Family History Medical [...] Don't know 02/23/2025 8: 28 PM EDT Last Filed Vital Signs Vital Sign Reading [...] Description 03/03/2025 11:15 AM EDT Office Visit [facility] [address] [place] [address] Jose Angel Rey MD [address] [place] [address] Health Maintenance Due Date Last Done Comments Medicare Annual Wellness (AWV) 1945 Depression Screening 1958 Zoster Vaccines (1 of 2) 02/28/1996 Fall Risk Screening 2011 COVID-19 Vaccine ( season) 2024 04/27/2023, 06/02/2021, 09/26/2020, Additional history exists Influenza Vaccine (#1) 2025 , 04/06/2020, 04/08/2019, Additional history exists Adult Tetanus [...] this topic Medical Devices Implanted Type Area Tank House Supervisor Device Identifier Shelf Expiration Date Model / Serial / Lot [id number] Amplia Mri Quad Computer Recycling Worker-D [id number] Implanted:02/05 (Quantity not on file) NEWSCAST DIRECTOR-D ICD [id number] AMPLIA MRI QUAD NEWSCAST DIRECTOR-D / [id number] / [place] Xt Hf Quad Computer Recycling Worker-D Implanted:Qty: 1 on 12/25/2024 by Jose Angel Rey MD at [facility] NEWSCAST DIRECTOR-D ICD Left: Chest Medtronic 02/03/2026 [id number] / [id number] / Procedures Procedure Name Priority Date/Time Associated Diagnosis Comments CARDIAC DEVICE CHECK - IN CLINIC - ICD BIVENTRICULAR CHAMBER W/ PROG Routine 02/17/2025 4:49 PM EDT Encounter for implantable defibrillator reprogramming or check GENERATOR CHANGE ICD BIV Routine 12/25/2024 6:24 PM EDT NICM (nonischemic cardiomyopathy) ([facility]/HCC) CARDIAC DEVICE CHECK - REMOTE ALERT - ICD Routine 12/17/2024 12:00 AM EDT from Last 3 Months Results * CARDIAC DEVICE CHECK - IN [...] Angel Rey MD CV IMPLANTABLE CARDIAC DEVICE ME OCEDURES Final Result * GENERATOR CHANGE ICD BIV (12/25/2024 6:24 [...] Angel Rey MD CV IMPLANTABLE CARDIAC DEVICE ME OCEDURES Final Result from Last 3 Months Insurance [place] Care Teams Computer Forensics Investigator Relationship Specialty Start Date End Date Ren Medrano MD [address] [place] [address] PCP - General 06/21/22
--- OUTSIDE RECORDS SUMMARY | 2025-02-25 13:01 | XMS_ITS | Encounter Summary ---
Author Organization [facility] Address [address] [place] [address] Care Team Providers Care Last Repairer Helper Name Role Phone Ren Medrano MD Primary Care Provider [phone] Reason for Visit * Reason Comments Med Refill Encounter Details Date Type Department Care Team (Late st Contact Info) Description 11/07/[address] [facility] [address] [place] [address] Ralph Aguilar MD [address] [facility] [address] [facility] [place] [address] Chronic systolic (congestive) heart failure [...] Don't know 02/23/2025 8: 28 PM EDT COVID-19 Exposure Response Date Recorded In the last 10 days, have yo u been in contact with someone who was confirmed or suspected to have Coronavirus/COVID-19? No / Unsure 10/09/2022 1:15 PM EDT documented as of this encounter Plan of Treatment Upcoming Encounters Date Type Department Care Team (Late st Contact Info) Description 03/03/2025 11:15 AM EDT Office Visit [facility] [address] [place] [phone] Jose Angel Rey MD [address] [place] [address] documented as of this encounter Visit Diagnoses Diagnosis Chronic systolic (congestive) heart failure (CMS/HCC) documented in this encounter Care Teams Last Repairer Helper Relationship Specialty Start Date End Date Ren Medrano MD [facility] [place] [address] PCP - General 06/21/22 documented as of this encounter
--- OUTSIDE RECORDS SUMMARY | 2025-02-25 13:01 | XMS_ITS | Encounter Summary ---
Author Organization [facility] Address [address] [place] [address] Care Team Providers Care Sanitary Aide Name Role Phone Marcela Carter DO, Charles Lewis Primary Care Provi minoo Source Comments In the event this information is protected by the Federal Confidentiality of Alcohol and Drug AbusePatient Records regulations: The Federal rules restrict any use of the information to criminally investigate or prosecute any alcohol or drug abuse patient.[facility] Encounter Details Date Type Department Care Team (Late st Contact Info) Description 02/03/2015 Abstract Cardiology [address] [place] [address] Mark Domínguez MD [facility] [place] [address] Social History Tobacco Use Types Packs/Day Years [...] on filedocumented in this encounter Care Teams Sanitary Aide Relationship Specialty Start Date End Date Ren Medrano Jr., DO [facility] [place] [address] PCP - General 04/03/03 documented as of this encounter
[2025-02-25 13:02] VITALS: BP 123/78; PULSE 71; TEMP 36.6; O2SAT 98; BMI 30.8
[2025-02-25] MEDS: DIPHTH,PERTUSS(ACELL),TET VAC 0.5 ML SYRINGE IM (17:38)
--- NOTE | 2025-02-25 17:38 | ED.GENADUL1 ---
HPI HPI - General Adult General Chief complaint: Wound/Laceration Stated complaint: LACERATION L HAND Time Seen by Provider: 02/25/25 16:07 Source: patient Mode of arrival: walk-in Limitations: no limitations History of Present Illness HPI narrative: Patient is a 9-year-old male who is presenting to the ER with chief complaint of a flap laceration to the dorsal aspect of his left thumb. Patient cut this at home. Patient does not know when his last tetanus shot was. He excellently cut this with a knife there was a pocket knife while he was working on a tractor today. Patient is right-hand dominant. No active bleeding. No other acute complaints. All systems are negative except as noted/marked. All systems reviewed and otherwise negative. Nurses note and vital signs reviewed and patient is not hypoxic. General: The patient appears well and in no apparent distress. Patient is resting comfortably on cart. Patient is not toxic, lethargic, or listless Skin: Warm, dry, no pallor noted. There is no rash noted. No petechiae, purpura. Patient has a 1 x 1 cm U-shaped flap to the dorsal aspect of his left thumb over the IP joint, not involving the left thumbnail. No active bleeding. Head: Normocephalic, atraumatic Eye: Normal conjunctiva, no drainage, EOMI. PERRL Ears, Nose, Mouth, and Throat: oral mucosa is moist. Nares patent. Mouth without vesicles. Cardiovascular: Regular Rate and Rhythm, Respiratory: Patient is in no distress, Back: non-tender, GI: no tenderness to palpation, no masses appreciated. No rebound, guarding, or rigidity noted. No distention Musculoskeletal: Patient has full range of motion of all of the extremities, no motor, sensory, or focal neurological deficits. Patient's left thumb is neurovascular intact, he has no superficial or deep flexor tendons involved. No active bleeding. No nail involvement, no subungual hematoma. Neurological: A&O x4, normal speech Psychiatric: Cooperative Related Data Home Medications ?Medication ?Instructions ?Recorded ?Confirmed allopurinol 300 mg tablet 300 mg PO DAILY 11/06/24 01/26/25 dapagliflozin propanediol 10 mg 10 mg PO DAILY 11/06/24 01/26/25 tablet (Farxiga) duloxetine 60 mg capsule,delayed 60 mg PO DAILY 11/06/24 01/26/25 release (Cymbalta) famotidine 40 mg tablet 40 mg PO DAILY 11/06/24 01/26/25 finasteride 5 mg tablet 5 mg PO DAILY 11/06/24 01/26/25 furosemide 20 mg tablet mg 11/06/24 hydroxychloroquine 200 mg tablet 200 mg PO DAILY 11/06/24 01/26/25 lubiprostone 8 mcg capsule 8 mcg PO BID 11/06/24 01/26/25 montelukast 10 mg tablet 10 mg PO DAILY 11/06/24 01/26/25 pregabalin 200 mg capsule 200 mg PO Q12H 11/06/24 01/26/25 rosuvastatin 10 mg tablet 10 mg PO DAILY 11/06/24 01/26/25 sacubitril 49 mg-valsartan 51 mg 1 tab PO BID 11/06/24 01/26/25 tablet (Entresto) Allergies Allergy/AdvReac Type Severity Reaction Status Date / Time No Known Drug Allergies Allergy Verified 02/25/25 13:04 Opioid HPI Opioid Management Most Recent Opioid Data: Last Pain Scale 6 01/26/25, 09:41 [facility] Medical History (Updated 02/25/25 @ 17:35 by Kevin Ashton MD) Pacemaker ?Z95.0 - Presence of cardiac pacemaker (ICD-10) Social History Smoking status: Never smoker Little interest or pleasure in doing things: not at all Feeling down, depressed, or hopeless: not at all Exam Constitutional Vital Signs, click to edit/add: Last Vital Signs Temp 97.9 F 02/25/25 13:02 Pulse 80 02/25/25 17:45 Resp 16 02/25/25 17:45 BP 135/89 02/25/25 17:45 Pulse Ox 99 02/25/25 17:45 O2 Del Method Room Air 02/25/25 17:45 Course Vital Signs Vital signs: Vital Signs Temperature 97.9 F 02/25/25 13:02 Pulse Rate 71 02/25/25 13:02 Respiratory Rate 16 02/25/25 13:02 Blood Pressure 123/78 02/25/25 13:02 Pulse Oximetry 98 02/25/25 13:02 Oxygen Delivery Method Room Air 02/25/25 13:02 Temperature 97.9 F 02/25/25 13:02 Pulse Rate 80 02/25/25 17:45 Respiratory Rate 16 02/25/25 17:45 Blood Pressure 135/89 02/25/25 17:45 Pulse Oximetry 99 02/25/25 17:45 Oxygen Delivery Method Room Air 02/25/25 17:45 Medical Decision Making MDM Narrative Medical decision making narrative: Patient was in the ER at length amount of time secondary to ER volume and is low acuity laceration. Patient was going to leave AGAINST MEDICAL ADVICE and before I could see the patient. I was able to see the patient quickly before discharge. It was recommended the patient have 3-4 sutures to the U-shaped flap laceration to his left thumb. Patient did not want to wait another 30 to 40 minutes to have his thumb sutured. Blame less apologies were given. Patient understands recommendation to have sutures. Patient is opting to have Steri-Strips placed instead. Milagro ANTOINE was able to help me. Patient was initially going to leave AGAINST MEDICAL ADVICE and leave before seen by myself. Patient agreed to have tetanus update, benzoin, Steri-Strips, finger splint and discharge. Wound care was discussed at bedside and on discharge paperwork. The wound is already done very cleaned thoroughly by Milagro ANTOINE. Patient is not diabetic. Patient had a aluminum finger splint placed to his left thumb. Splint was assisted with . the patient was neurovascularly intact before and after the splint was placed. the affected bones/injured area had proper alignment in a splint. Education on splint care at home was given at bedside. Patient and family have no questions at discharge. Apologies the patient for a lengthy stay, blame less apologies given. Patient was thankful I saw him before he just walked out the door. Patient was very nice. Discharge Plan Discharge Chief Complaint: Wound/Laceration Clinical Impression: Laceration of skin of left thumb Patient Disposition: Left Against Medical Advice Time of Disposition Decision: 17:30 Condition: Good Mode of Transportation: Private Vehicle Prescriptions / Home Meds: No Action allopurinol 300 mg tablet 300 mg PO DAILY duloxetine [Cymbalta] 60 mg capsule,delayed release(DR/EC) 60 mg PO DAILY Entresto 49-51 mg tablet 1 tab PO BID dapagliflozin propanediol [Farxiga] 10 mg tablet 10 mg PO DAILY finasteride 5 mg tablet 5 mg PO DAILY hydroxychloroquine 200 mg tablet 200 mg PO DAILY lubiprostone 8 mcg capsule 8 mcg PO BID montelukast 10 mg tablet 10 mg PO DAILY pregabalin 200 mg capsule 200 mg PO Q12H rosuvastatin 10 mg tablet 10 mg PO DAILY furosemide 20 mg tablet famotidine 40 mg tablet 40 mg PO DAILY Print Language: Kazakh Instructions: Finger Laceration (ED), Skin Adhesive Strips (ED), Laceration Without Closure (ED) Additional Instructions: The Steri-Strips on until they fall off. You may wash your hands or take a shower tomorrow. Otherwise keep your left thumb clean dry and intact. Ideally you should have had 3-4 stitches placed. You have chosen to have Steri-Strips. Wound care was discussed at bedside and on discharge paperwork. Use your aluminum finger splint for the next 3 to 5 days to allow your laceration to heal. Take your finger splint off for washing your hands or shower only. Follow-up with your PCP for wound check in 2 or 3 days. Return back to the ER for any other acute concerns. After 12 hours, we cannot suture the laceration. Alternate Tylenol and either Motrin, Advil, or ibuprofen every 4 hours to help with pain. Maximum dose of Tylenol is 3000 mg a day. Maximum dose of either Motrin, Advil, or ibuprofen is 2400 mg a day. Referrals: GIAN MARCIAL DO [Primary Care Provider, [facility]] - 1 week Discharge Date/Time: 02/25/25 17:45
[2025-02-25 17:45] VITALS: BP 135/89; PULSE 80; O2SAT 99
== END 2025-02-25 17:45 | disposition left against medical advice (07) ==
PROVIDERS: Emergency Provider Emergency Medicine; PCP Internal Medicine
DX: S61.012A Laceration without foreign body of left thumb without damage to nail, initial encounter (principal); Z53.29 Procedure and treatment not carried out because of patient's decision for other reasons; W26.0XXA Contact with knife, initial encounter; Z95.0 Presence of cardiac pacemaker; Z23 Encounter for immunization
CPT/HCPCS: 90471; 99284

== ENCOUNTER 2025-03-02 10:42 | Day surgery (SDC) | payer MEDICARE, OTHER, SELFPAY ==
--- OUTSIDE RECORDS SUMMARY | 2025-02-17 13:00 | XMS_ITS | Encounter Summary ---
Author Organization [facility] Address [address] [place] [address] Care Team Providers Care Hand Straightener Name Role Phone Ren Medrano MD Primary Care Provider [phone] Encounter Details Date Type Department Care Team (Latest Contact Info) Description 02/17/2025 1:00 PM EDT Ancillary Procedure [address] [address] Encounter for implantable defibrillator reprogramming or check Social History Tobacco Use Types Packs/Day [...] Information Value Date Recorded Sex Assigned at Male 02/23/2025 8:28 PM EDT Legal Sex Male 9:19 PM EDT Gender Identity Male 02/23/2025 8:28 PM EDT Sexual Orientation Don't know 02/23/2025 8: 28 PM EDT documented as of this encounter Plan of Treatment Upcoming Encounters Date Type Department Care Team (Late st Contact Info) Description 03/03/2025 11:15 AM EDT Office Visit [facility] [address] [place] [address] Jose Angel Rey MD [address] [place] [address] documented as of this encounter Procedures Procedure Name Priority Date/Time Associated Diagnosis Comments CARDIAC DEVICE CHECK - IN CLINIC - ICD BIVENTRICULAR CHAMBER W/ PROG Routine 02/17/2025 4:49 PM EDT Encounter for implantable defibrillator reprogramming or check documented in this encounter Results * CARDIAC DEVICE CHECK - IN CLINIC - ICD BIVENTRICULAR CHAMBER W/ PROG (02/17/2025 4:49 PM EDT) Anatomical Region Laterality Modality Other Narrative 02/17/2025 4:54 PM EDT By using the attestations below, the signing clinician agrees that I have read and verify that the documentation has been personally reviewed by me and ensure that the documentation accurately reflects the encounter. Routine EP device follow up as per schedule. Please see attached note us Jose Angel Rey MD CV IMPLANTABLE CARDIAC DEVICE [place] OCEDURES Final Result documented in this encounter Visit Diagnoses Diagnosis Encounter for implantable defibrillator reprogramming or check Fitting and adjustment of automatic implantable cardiac defibrillator documented in this encounter Care Teams Hand Straightener Relationship Specialty Start Date End Date Ren Medrano MD [address] [place] [phone] PCP - General 06/21/22 documented as of this encounter
--- OUTSIDE RECORDS SUMMARY | 2025-03-02 10:45 | XMS_ITS | Clinical Summary ---
Author Organization [facility] Address [address] [place], [place] [id number] Care Team Providers Care Bin Cleaner Name Role Phone Marcela Carter DO, Charles [...] Comments Anxiety Screening 02/28/1964 Depression Screening 02/28/1964 DTaP,Tdap,Td Vaccine (1 - Tdap) 1965 Diabetes Screening 1991 Pneumococcal Vaccine: 50+ (1 of 1 - PCV) 02/28/1996 Shingrix Vaccine (1 of 2) 02/28/1996 RSV Vaccine (1 - 1-dose 75+ series) 2021 Advance Directive Discussion 07/30/2024 Influenza Vaccine (#1) 2025 Care Teams Bin Cleaner Relationship Specialty Start Date End Date Ren Medrano Jr., [facility] [place] [address] PCP - General 04/03/03
--- OUTSIDE RECORDS SUMMARY | 2025-03-02 10:45 | XMS_ITS | Clinical Summary ---
Author Organization [facility] Address [address] [place] [address] Care Team Providers Care Transplant Case Manager Name Role Phone Ren Medrano MD Primary Care Provider [phone] Allergies Active Allergy Reactions Criticality Noted Date [...] Assessment & Plan (04/25/2023 11:25 AM EDT): [facility] IIb- EF recovered 50-55% on current echo [...] Description 02/17/2025 1:00 PM EDT Ancillary Procedure [facility] [address] [place] [address] Encounter for implantable defibrillator reprogramming or check 01/01/2025 11:40 AM EDT Office Visit [facility] [address] [place] [address] Sujatha Ridley CNP 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); Biventricular implantable cardioverter-defibrill ator (ICD) in situ; Visit for wound check 12/25/2024 3:00 PM EDT - 12/25/2024 4:00 PM EDT Surgery [facility] [address] [place] [address] Jose Angel Rey MD Generator change ICD BiV [35734] 12/25/2024 12:41 PM EDT - 12/25/2024 7:32 PM EDT Hospital Encounter [facility] [address] [place] [address] Jose Angel Rey MD NICM (nonischemic cardiomyopathy) (CMS/HCC) Discharge Disposition: Home or Self Care () 12/25/2024 Orders Only [facility] [address] [place] [address] Latrice Jewell RN 12/25/2024 Travel 12/17/2024 Orders Only [facility] [address] [place] [address] Jose Angel Rey MD 12/16/2024 Travel 12/09/2024 11:00 AM EDT Office Visit [facility] [address] [place] [address] Jose Angel Rey MD NICM (nonischemic cardiomyopathy) [...] Description 03/03/2025 11:15 AM EDT Office Visit [facility] [address] [place] [address] Jose Angel Rey MD [address] [place] [address] Health Maintenance Due Date Last [...] this topic Medical Devices Implanted Type Area Repeat Photocomposing Machine Operator Device Identifier Shelf Expiration Date Model / Serial / Lot [id number] Amplia Mri Quad Numerical Tool Programmer-D [id number] Implanted:02/05 (Quantity not on file) LINER MACHINE OPERATOR HELPER-D ICD [id number] AMPLIA MRI QUAD LINER MACHINE OPERATOR HELPER-D / [id number] / Montchanin Xt Hf Quad Numerical Tool Programmer-D Implanted:Qty: 1 on 12/25/2024 by Jose Angel Rey MD at [facility] LINER MACHINE OPERATOR HELPER-D ICD Left: Chest Medtronic 02/03/2026 [id number] / [id number] / Procedures Procedure Name Priority Date/Time Associated Diagnosis Comments CARDIAC DEVICE CHECK - IN CLINIC - ICD BIVENTRICULAR CHAMBER W/ PROG Routine 02/17/2025 4:49 PM EDT Encounter for implantable defibrillator reprogramming or check GENERATOR CHANGE ICD BIV Routine 12/25/2024 6:24 PM EDT NICM (nonischemic cardiomyopathy) ([facility]/HCC) CARDIAC DEVICE CHECK - REMOTE ALERT - [...] Angel Rey MD CV IMPLANTABLE CARDIAC DEVICE [place] OCEDURES Final Result * GENERATOR CHANGE ICD [...] Angel Rey MD CV IMPLANTABLE CARDIAC DEVICE [place] OCEDURES Final Result from Last 3 Months Insurance MEDICARE MEDICAL SCHROEDER Care Teams Transplant Case Manager Relationship Specialty Start Date End Date Ren Medrano MD [address] [place] [address] PCP - General 06/21/22
--- OUTSIDE RECORDS SUMMARY | 2025-03-02 10:45 | XMS_ITS | Clinical Summary ---
Author Organization [facility] Address [address] [place] [address] Care Team Providers Care Drum Straightener Name Role Phone Unavailable Primary Care Provider [...]
--- OUTSIDE RECORDS SUMMARY | 2025-03-02 10:45 | XMS_ITS | Encounter Summary ---
Author Organization [facility] Address [address] [place] [address] Care Team Providers Care Financial Services Consultant Name Role Phone Marcela Carter DO, Charles Lewis Primary Care Provi minoo Source Comments In the event this information is protected by the Federal Confidentiality of Alcohol and Drug AbusePatient Records regulations: The Federal rules restrict any use of the information to criminally investigate or prosecute any alcohol or drug abuse patient.[facility] Encounter Details Date Type Department Care Team (Late st Contact Info) Description 02/03/2015 Abstract Cardiology [address] [place] [address] Mark Domínguez MD [facility] [place] [phone] Social History Tobacco Use Types Packs/Day Years [...] on filedocumented in this encounter Care Teams Financial Services Consultant Relationship Specialty Start Date End Date Ren Medrano Jr., DO [facility] [place] [address] PCP - General 04/03/03 documented as of this encounter
[2025-03-02 10:54] VITALS: BP 142/92; PULSE 71; TEMP 36.3; O2SAT 97
--- OUTSIDE RECORDS SUMMARY | 2025-03-02 11:03 | XMS_ITS | CCD ---
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 Name Role Phone PHYSICIAN, DEFAULT Unavailable Unavailable [...] Admitting Unavailable MOUKARBEL, DR TRUJILLO Attending Unavailable ANIKET, DR SPRINGER Primary Care Unavailable ETHAN, DR TRUJILLO Consulting Unavailable Nino BAE Attending Unavailable KATHIA, Nino Garcia Attending Unavailable REN MARCIAL JR Primary Care Physician Ivonne MARTINEZ, Gill Thakkar Attending Unavailable ELVIS, EDUARD Referring Unavailable SAVITA, JOSE ANGEL Referring Unavailable SAVITA, JOSE ANGEL Referring Unavailable SAVITA, JOSE ANGEL Referring Unavailable SAVITA, JOSE ANGEL Referring Unavailable SAVITA, JOSE ANGEL Referring Unavailable SAVITA, JOSE ANGEL Referring Unavailable SAVITA, JOSE ANGEL Referring Unavailable SAVITA, JOSE ANGEL Attending Unavailable SAVITA, JOSE ANGEL Referring Unavailable DAMIANARELIS Attending Unavailable SAVITA, JOSE ANGEL Referring Unavailable SAVITA, JOSE ANGEL Referring Unavailable SAVITA, JOSE ANGEL Referring Unavailable SAVITA, JOSE ANGEL Referring Unavailable SAVITA, JOSE ANGEL Admitting Unavailable SAVITA, JOSE ANGEL Attending Unavailable ELVIS, EDUARD Referring Unavailable SAVITA, JOSE ANGEL Referring Unavailable Allergies Allergy Classification Reported Allergen(s) Allergy Type Date of Onset Reaction(s) Facility (3 sources) tamsulosin Drug Allergy 06-30-2016 [facility] Repository (1 source) NO KNOWN DRUG ALLERGIES Drug allergy (disorder) 06-09-2009 [facility] Repository (3 sources) tamsulosin Drug Allergy 07-07-2019 [facility] (3 sources) tamsulosin; Translations: [tamsulosin] Drug Allergy 02-03-2015 [facility] Repository Medications Current Medications Medication Drug Class(es) Dates Sig (Normalized) Sig (Original) Acetaminophen / HYDROcodone (3 sources) Opioid Agonist Start: 08-07-2019 End: 08-07-2019 HYDROcodone-acetam inophen (NORCO) 5-325 MG per tablet 1 tablet Start: 07-08-2019 End: 07-08-2019 HYDROcodone-acetaminophen (N ORCO) 5-325 MG per tablet 1 tablet Start: 12-30-2015 [place] 325 mg-5 mg oral tablet 1 tab(s), [...] (6 sources) Left bundle-branch block, unspecified; Translations: [Left bundle branch block] Onset: 02-05-2018 12-28-2015 Chronic Congestive heart failure; nonhypertensive (15 sources) [...] Onset: 02-05-2018 Chronic Other aftercare (1 source) senior living (current) use of aspirin; Translations: [[employer] (CURRENT) USE OF ASPIRIN] Onset: 02-05-2018 Episodic [...] Range Facility Office Visiton 01-01-2025 Follow-up visit [id number] Jose Guevara 1945 M Date Provider Department Center 01/01/2025 ARELIS PENA [facility] Family History Problem Relation Age of Onset Stroke Father Family Status - Relation Status Age at Mother Father Brother Alive Level of Service:13296 [place] POSTOP FOLLOW UP VISIT RELATED TO ORIGINAL PX Normal [facility] HP 12-25-2024 [facility] Cardiology Note [facility] Reason for follow-up: BiV ICD HPI: [...] in follow up after recent admission to [facility] when he developed hypotension after [place] for urologic surgery. He has history of non ischemic Cardiomyopathy and systolic heart failure with cath in 2007 at [facility] showing no significant CAD when his EF was 30%. He had a recent stress test at Dr Marcial's office which was negative. He has been maintained on coreg and Entresto maximum dosage for >4 months now. On his recent echocardiogram at [facility] there was reduced EF 30% and possible apical thrombus. [facility] showed EF 25% with [...] BACK SURGERY (more content not included)... Normal [facility] Ronnell 12-25-2024 VENITA RN educated pt on d/ c instructions. [...] off of unit with all of belongings. [facility] NURSNOTE CHG wipes and betadi ne nasal swabs completed. [facility] Orders Onlyon 12-25-2024 Orders Only [id number] Jose Guevara 1945 Date Provider Department Center 12/25/2024 REINA FRAZIER [facility] Family History Problem Relation Age of Onset Stroke Father Family Status - Relation Status Age at Mother Father Brother Alive [facility] Orders Onlyon 12-17-2024 Orders Only [id number] Jose Guevara 1945 Date Provider Department Center 12/17/2024 JOSE ANGEL [facility]AMS [facility] Family History Problem Relation Age of Onset Stroke Father Family Status - Relation Status Age at Mother Father Brother Alive [facility] Office Visiton 12-09-2024 Follow-up visit [id number] Jose Guevara 1945 Date Provider Department Center 12/09/2024 JOSE ANGEL ABRAMS [facility] Family History Problem Relation Age of Onset Stroke Father Family Status - Relation Status Age at Mother Father Brother Alive Level of Service:14325 [place] OFFICE/OUTPATIENT [facility] [address] [facility] Documentationon 11-21-2024 Documentation [id number] Jose Guevara 1945 Date Provider Department Center 11/21/2024 MELYSSA [facility]ON [facility] Family History Problem Relation Age of Onset Stroke Father Family Status - Relation Status Age at Father Reason for Visit and Comments: Congestive Heart Failure [127] Normal [facility] Orders Onlyon 11-17-2024 Orders Only [id number] Jose Guevara 1945 M Date Provider Department Center 11/17/2024 AGUEDA STARKEY [facility] Family History Problem Relation Age of Onset Stroke Father Family Status - Relation Status Age at Father Normal [facility] PROF CHEM 8 (BAS METB)on Anion gap [Moles/Vol] 9.4 mmol/L Normal [facility] Comment on above: Performed By: #### B MP #### [facility] [address] [address] [address] Javy Brian Calcium [Mass/Vol] 9.7 mg/dL Normal 8.5-10.1 [facility] Comment on above: Performed By: #### B MP #### [facility] [address] [address] [address] Javy Brian Chloride [Moles/Vol] 106 mmol/L Normal 98-107 [facility] Comment on above: Performed By: #### B MP #### [facility] [address] [address] [address] Javy Brian CO2 [Moles/Vol] 30.4 mmol/L Normal 21.0-32.0 [facility] Comment on above: Performed By: #### B MP #### [facility] [address] [address] [address] Javy Brian Creatinine [Mass/Vol] 1.46 mg/dL Critically high 0.70-1.30 [facility] Comment on above: Performed By: #### B MP #### [facility] [address] [address] [address] Javy Brian EGFR-AF BURKINAN 57 mL/min/1.73m2 Critically low >=60 [facility] Comment on above: Performed By: #### B MP #### [facility] [address] [address] [address] Javy Brian EGFR-NON AF BURKINAN 47 mL/min/1.73m2 Critically low >=60 [facility] Comment on above: Performed By: #### B MP #### [facility] [address] [address] [address] Javy Brian Glucose [Mass/Vol] 99 mg/dL Normal 74-106 [facility] Comment on above: Performed By: #### B MP #### [facility] [address] [address] [address] Javy Brian Potassium [Moles/Vol] 4.8 mmol/L Normal 3.5-5.1 [facility] Comment on above: Performed By: #### B MP #### [facility] [address] [address] [address] Javy Brian Sodium [Moles/Vol] 141 mmol/L Normal 136-145 [facility] Comment on above: Performed By: #### B MP #### [facility] [address] [place] [address] Dr. Javy Brian Urea nitrogen [Mass/Vol] 23.0 mg/dL Critically high 7.0-18.0 [facility] Comment on above: Performed By: #### B MP #### [facility] [address] [place] [address] Dr. Javy Brian Urea nitrogen/Creatinin e [Mass ratio] 15.8 mg/mg Normal [facility] Comment on above: Performed By: #### B MP #### [facility] [address] [place] [address] Dr. Javy Brian PROF CHEM 8 (BAS METB)on Anion gap [Moles/Vol] 10.7 mmol/L Normal [facility] Comment on above: Performed By: #### B MP #### [facility] [address] [place] [address] Dr. Javy Brian Calcium [Mass/Vol] 9.7 mg/dL Normal 8.5-10.1 [facility] Comment on above: Performed By: #### B MP #### [facility] [address] [place] [address] Dr. Javy Brian Chloride [Moles/Vol] 106 mmol/L Normal 98-107 [facility] Comment on above: Performed By: #### B MP #### [facility] [address] [place] [address] Dr. Javy Brian CO2 [Moles/Vol] 29.5 mmol/L Normal 21.0-32.0 [facility] Comment on above: Performed By: #### B MP #### [facility] [address] [address] [address] Javy Brian Creatinine [Mass/Vol] 1.79 mg/dL Critically high 0.70-1.30 [facility] Comment on above: Performed By: #### B MP #### [facility] [address] [address] [address] Javy Brian EGFR-AF BURKINAN 45 mL/min/1.73m2 Critically low >=60 [facility] Comment on above: Performed By: #### B MP #### [facility] [address] [address] [address] Javy Brian EGFR-NON AF BURKINAN 37 mL/min/1.73m2 Critically low >=60 [facility] Comment on above: Performed By: #### B MP #### [facility] [address] [address] [address] Javy Brian Glucose [Mass/Vol] 94 mg/dL Normal 74-106 [facility] Comment on above: Performed By: #### B MP #### [facility] [address] [address] [address] Javy Brian Potassium [Moles/Vol] 5.2 mmol/L Critically high 3.5-5.1 [facility] Comment on above: Performed By: #### B MP #### [facility] [address] [address] [address] Javy Brian Sodium [Moles/Vol] 141 mmol/L Normal 136-145 [facility] Comment on above: Performed By: #### B MP #### [facility] [address] [address] [address] Javy Brian Urea nitrogen [Mass/Vol] 34.0 mg/dL Critically high 7.0-18.0 [facility] Comment on above: Performed By: #### B MP #### [facility] [address] [address] [address] Javy Brian Urea nitrogen/Creatinin e [Mass ratio] 19.0 mg/mg Normal [facility] Comment on above: Performed By: #### B MP #### [facility] [address] [address] [address] Javy Brian PROF CHEM 8 (BAS METB)on Anion gap [Moles/Vol] 12.0 mmol/L Normal [facility] Comment on above: Performed By: #### B MP #### [facility] [address] [place] [address] Dr. Javy Brian Calcium [Mass/Vol] 8.9 mg/dL Normal 8.5-10.1 [facility] Comment on above: Performed By: #### B MP #### [facility] [address] [place] [address] Dr. Javy Brian Chloride [Moles/Vol] 109 mmol/L Critically high 98-107 [facility] Comment on above: Performed By: #### B MP #### [facility] [address] [place] [address] Dr. Javy Brian CO2 [Moles/Vol] 29.0 mmol/L Normal 22.0-30.0 [facility] Comment on above: Performed By: #### B MP #### [facility] [address] [place] [address] Dr. Javy Brian Creatinine [Mass/Vol] 1.79 mg/dL Critically high 0.66-1.25 [facility] Comment on above: Performed By: #### B MP #### [facility] [address] [place] [address] Dr. Javy Brian EGFR-AF BURKINAN 45 mL/min/1.73m2 Critically low >=60 [facility] Comment on above: Performed By: #### B MP #### [facility] [address] [place] [address] Dr. Javy Brian EGFR-NON AF BURKINAN 37 mL/min/1.73m2 Critically low >=60 [facility] Comment on above: Performed By: #### B MP #### [facility] [address] [place], [place] [id number] Dr. Javy Brian Glucose [Mass/Vol] 92 mg/dL Normal 74-106 [facility] Comment on above: Performed By: #### B MP #### [facility] [address] [place] [address] Dr. Javy Brian Potassium [Moles/Vol] 5.0 mmol/L Normal 3.4-5.0 [facility] Comment on above: Performed By: #### B MP #### [facility] [address] [place] [address] Dr. Javy Brian Sodium [Moles/Vol] 145 mmol/L Normal 137-145 [facility] Comment on above: Performed By: #### B MP #### [facility] [address] [place] [address] Dr. Javy Brian Urea nitrogen [Mass/Vol] 35.0 mg/dL Critically high 7.0-18.0 [facility] Comment on above: Performed By: #### B MP #### [facility] [address] [place] [address] Dr. Javy Brian Urea nitrogen/Creatinin e [Mass ratio] 19.6 mg/mg Normal [facility] Comment on above: Performed By: #### B MP #### [facility] [address] [place] [address] Dr. Javy Brian CBC AUTO DIFFon 11-04-2021 BASO # 0.0 103/ul Normal 0.0-0.1 [facility] Comment on above: Performed By: #### C BC #### [facility] [address] [place] [address] Dr. Javy Brian Basophils/100 WBC (Bld) 0.7 % Normal 0.2-2.0 [facility] Comment on above: Performed By: #### C BC #### [facility] [address] [place] [address] Dr. Javy Brian EO # 0.2 103/ul Normal 0.0-0.7 [facility] Comment on above: Performed By: #### C BC #### [facility] [address] [place] [address] Dr. Javy Brian Eosinophils/100 WBC (Bld) 3.1 % Normal 0.9-7.0 [facility] Comment on above: Performed By: #### C BC #### [facility] [address] [place] [address] Dr. Javy Brian Erythrocyte distribution width (RBC) [Ratio] 14.3 % Normal 11.0-15.0 [facility] Comment on above: Performed By: #### C BC #### [facility] [address] [place] [address] Dr. Javy Brian Hematocrit (Bld) [Volume fraction] 43.5 % Normal 42.0-54.0 [facility] Comment on above: Performed By: #### C BC #### [facility] [address] [place] [address] Dr. Javy Brian Hemoglobin (Bld) [Mass/Vol] 13.7 g/dL Critically low 14.0-18.0 [facility] Comment on above: Performed By: #### C BC #### [facility] [address] [place] [address] Dr. Javy Brian IG # 0.01 10e3/ul Normal 0.00-0.03 [facility] Comment on above: Performed By: #### C BC #### [facility] [address] [place] [address] Dr. Javy Brian IG % 0.2 % Normal 0.0-0.5 [facility] Comment on above: Performed By: #### C BC #### [facility] [address] [place] [address] Dr. Javy Brian LYMPH # 1.4 103/ul Normal 1.2-3.8 [facility] Comment on above: Performed By: #### C BC #### [facility] [address] [place] [address] Dr. Javy Brian Lymphocytes/100 WBC (Bld) 23.6 % Normal 20.5-60.0 [facility] Comment on above: Performed By: #### C BC #### [facility] [address] [place] [address] Dr. Javy Brian MANUAL DIFF REQ NO Normal [facility] Comment on above: Performed By: #### C BC #### [facility] [address] [place] [address] Dr. Javy Brian MCH (RBC) [Entitic mass] 29.0 pg Normal 25.9-34.0 [facility] Comment on above: Performed By: #### C BC #### [facility] [address] [place] [address] Dr. Javy Brian MCHC (RBC) [Mass/Vol] 31.5 g/dL Normal 29.9-35.2 [facility] Comment on above: Performed By: #### C BC #### [facility] [address] [place] [address] Dr. Javy Brian MCV (RBC) [Entitic vol] 92.0 fL Normal 80.0-94.0 [facility] Comment on above: Performed By: #### C BC #### [facility] [address] [place] [address] Dr. Javy Brian MONO # 0.8 103/ul Normal 0.3-0.8 [facility] Comment on above: Performed By: #### C BC #### [facility] [address] [place] [address] Dr. Javy Brian Monocytes/100 WBC (Bld) 14.1 % Critically high 1.7-12.0 [facility] Comment on above: Performed By: #### C BC #### [facility] [address] [place] [address] Dr. Javy Brian NEUT # 3.4 103/ul Normal 1.4-6.5 [facility] Comment on above: Performed By: #### C BC #### [facility] [address] [place] [address] Dr. Javy Brian Neutrophils/100 WBC (Bld) 58.3 % Normal 43.0-75.0 [facility] Comment on above: Performed By: #### C BC #### [facility] [address] [place] [address] Dr. Javy Brian Platelet mean volume (Bld) [Entitic vol] 9.7 fL Normal 9.5-13.5 [facility] Comment on above: Performed By: #### C BC #### [facility] [address] [place] [address] Dr. Javy Brian PLT 113 103/ul Critically low 150-450 [facility] Comment on above: Performed By: #### C BC #### [facility] [address] [place] [address] Dr. Javy Brian RBC 4.73 106/ul Normal 4.70-6.10 [facility] Comment on above: Performed By: #### C BC #### [facility] [address] [place] [address] Dr. Javy Brian WBC 5.8 103/ul Normal 4.0-11.0 [facility] Comment on above: Performed By: #### C BC #### [facility] [address] [place] [address] Dr. Javy Brian PROF CHEM 8 (BAS METB)on Anion gap [Moles/Vol] 13.2 mmol/L Normal [facility] Comment on above: Performed By: #### B MP #### [facility] [address] [place] [address] Dr. Javy Brian Calcium [Mass/Vol] 9.1 mg/dL Normal 8.5-10.1 [facility] Comment on above: Performed By: #### B MP #### [facility] [address] [place] [address] Dr. Javy Brian Chloride [Moles/Vol] 110 mmol/L Critically high 98-107 [facility] Comment on above: Performed By: #### B MP #### [facility] [address] [place] [address] Dr. Javy Brian CO2 [Moles/Vol] 27.6 mmol/L Normal 22.0-30.0 [facility] Comment on above: Performed By: #### B MP #### [facility] [address] [place] [address] Dr. Javy Brian Creatinine [Mass/Vol] 1.61 mg/dL Critically high 0.66-1.25 [facility] Comment on above: Performed By: #### B MP #### [facility] [address] [address] [address] Javy Brian EGFR-AF BURKINAN 51 mL/min/1.73m2 Critically low >=60 [facility] Comment on above: Performed By: #### B MP #### [facility] [address] [address] [address] Javy Brian EGFR-NON AF BURKINAN 42 mL/min/1.73m2 Critically low >=60 [facility] Comment on above: Performed By: #### B MP #### [facility] [address] [address] [address] Javy Brian Glucose [Mass/Vol] 94 mg/dL Normal 74-106 [facility] Comment on above: Performed By: #### B MP #### [facility] [address] [address] [address] Javy Brian Potassium [Moles/Vol] 5.8 mmol/L Critically high 3.4-5.0 [facility] Comment on above: Performed By: #### B MP #### [facility] [address] [address] [address] Javy Brian Sodium [Moles/Vol] 145 mmol/L Normal 137-145 [facility] Comment on above: Performed By: #### B MP #### [facility] [address] [address] [address] Javy Brian Urea nitrogen [Mass/Vol] 27.0 mg/dL Critically high 7.0-18.0 [facility] Comment on above: Performed By: #### B MP #### [facility] [address] [address] [address] Javy Brian Urea nitrogen/Creatinin e [Mass ratio] 16.8 mg/mg Normal [facility] Comment on above: Performed By: #### B MP #### [facility] [address] [address] [address] Javy Brian Ambulatory Visit Summaryon 0 10-04-2021 Ambulatory Visit Summary INDIO GUEVARA :1945 Visit Date:10/04/2021 Ambulatory Visit Instructions Your Diagnosis BPH with urinary obstruction Personal history of kidney stones Tests Performed Urnls Dip Stick Auto w/o Microscopy POC 78381 Your Care Team Attending Physician - Randall Heard Jr., MD Primary Care Physician - REN MARCIAL JR, DO This Is Your Medications List Contact prescribing physician if questions or concerns acetaminophen-hydrocodone ([place] 325 mg-5 mg oral tablet) allopurinol (allopurinol [...] Heard Jr., MD Where: [facility] Patient Educationon 10-05-19 Patient Education [...] Follow these instructions at home: ? Take kucp-aim-kjzbtqg and prescription medicines only as told by [...] d (more content not included)... Normal [facility] Urology Office/Clinic Noteon 10-04-2021 Urology Office/Clinic [...] Urnls Dip Stick Auto w/o Microscopy POC 77238 2. Personal history of kidney stones (Z87.442: [...] Tab, 12.5 (more content not included)... Normal [facility] Comment on above: Result Comment: Elec tronically Signed By: Félix Carter MD, Randall Espino\.br\Date and Time Signed: 10/04/21 11:52 EST\.br\Electronically Co-Signed By: Shakira Emery MA\.br\Date and Time Co-Signed: 10/04/21 11:49 EST Lab Reportson 10-03-2021 Lab Reports [id number]:[id number] Normal [facility] Fluoro For Surgical Procedur esOrdered By: Enrique Haines on 08-08-2019 Impression: Fluorosc opic time 383.0 seconds. Spinal stimulating leads with leads at indeterminate spinal level. If there is clinical concern for desired level location, radiographs lumbar/thoracic spine recommended. [employer] Phone: Patient 1 : 1945 Age: 74 years Gender: Male Order Date: 08/07/2019 2:09 PM. Exam: FLUORO FOR SURGICAL PROCEDURES Number of Views: 2 Indication: Pain Comparison: None Findings: Spinal stimulating leads are noted with leads at indeterminate spinal level. Postoperative changes lower lumbar spine. [employer] Phone: Mayo, Cortney Incoming R adiant Results From [employer]acs - 08/08/2019 8:50 AM EST Patient : [...] desired level location, radiographs lumbar/thoracic spine recommended. [employer] Phone: FLUORO FOR SURGICAL PROCEDUR ESon 08-07-2019 [...] Simon Somers MD 08/08/19 Final result Normal [facility] APTTOrdered By: Tone duron on 07-08-2019 aPTT Coag (Bld) [Time] 33.3 s [employer] Phone: Comment on above: Effective 02/13/2019: Please note methodology and/or reference ranges have changed. aPTT - Heparin Therapeutic Range: 74.0 - 106 seconds BASIC METABOLIC PANELOrdered By: Tone Redd on 07-08-2019 Anion gap [Moles/Vol] 13 mmol/L [employer] Phone: Calcium [Mass/Vol] 9.6 mg/dL 8.5 - 9.9 mg/dL [employer] Phone: Chloride [Moles/Vol] 107 mmol/L [employer] Phone: CO2 [Moles/Vol] 22 mmol/L [employer] Phone: Creatinine [Mass/Vol] 1.02 mg/dL 0.7 - 1.2 mg/dL [employer] Phone: GFR >60.0 >60 [employer] Phone: Comment on above: >60 mL/min/1.73m2 EG FR, calc. for ages 18 and older using the MDRD formula (not corrected for weight), is valid for stable renal function. GFR Non- >60.0 >60 [employer] Phone: Comment on above: >60 mL/min/1.73m2 EG FR, calc. for ages 18 and older using the MDRD formula (not corrected for weight), is valid for stable renal function. Glucose [Mass/Vol] 98 mg/dL 70 - 99 mg/dL [employer] Phone: Potassium [Moles/Vol] 4.5 mmol/L [employer] Phone: Sodium [Moles/Vol] 142 mmol/L [employer] Phone: Urea nitrogen [Mass/Vol] 21 mg/dL 8 - 23 mg/dL [employer] Phone: Basic Metabolic Panelon 12-1 0-2019 Anion gap [Moles/Vol] 13 mmol/L Normal 9-15 [facility] Comment on above: Performed By: #### B MP #### [facility] [address] [place] [id number] Calcium [Mass/Vol] 9.6 mg/dL Normal 8.5-9.9 [facility] Comment on above: Performed By: #### B MP #### [facility] [address] [place] [address] Chloride [Moles/Vol] 107 mmol/L Normal 95-107 [facility] Comment on above: Performed By: #### B MP #### [facility] [address] [place] [address] CO2 [Moles/Vol] 22 mmol/L Normal 20-31 [facility] Comment on above: Performed By: #### B MP #### [facility] [address] [place] [address] Creatinine [Mass/Vol] 1.02 mg/dL Normal 0.70-1.20 [facility] Comment on above: Performed By: #### B MP #### [facility] [address] [place] [address] GFR/1.73 sq M predicted among blacks MDRD (S/P/Bld) [Vol rate/Area] mL/min/{1.73_m2} Normal >60 [facility] Comment on above: Result Comment: >60 mL/min/1.73m2 EGFR, calc. for ages 18 and older using the MDRD formula (not corrected for weight), is valid for stable renal function. Performed By: #### B MP #### [facility] [address] [place] [address] GFR/1.73 sq M.predicted MDRD (S/P/Bld) [Vol rate/Area] mL/min/{1.73_m2} Normal >60 [facility] Comment on above: Result Comment: >60 mL/min/1.73m2 EGFR, calc. for ages 18 and older using the MDRD formula (not corrected for weight), is valid for stable renal function. Performed By: #### B MP #### [facility] [address] [place] [address] Glucose [Mass/Vol] 98 mg/dL Normal 70-99 [facility] Comment on above: Performed By: #### B MP #### [facility] [address] [place] [address] Potassium [Moles/Vol] 4.5 mmol/L Normal 3.4-4.9 [facility] Comment on above: Performed By: #### B MP #### [facility] [address] [place] [address] Sodium [Moles/Vol] 142 mmol/L Normal 135-144 [facility] Comment on above: Performed By: #### B MP #### [facility] [address] [place] [address] Urea nitrogen [Mass/Vol] 21 mg/dL Normal 8-23 [facility] Comment on above: Performed By: #### B MP #### [facility] [address] [place] [address] CBCOrdered By: Tone bo on 07-08-2019 Erythrocyte distribution width (RBC) [Ratio] 14.0 % 11.5 - 14.5 % [employer] Phone: Hematocrit (Bld) [Volume fraction] 42.1 % 42 - 52 % [employer] Phone: Hemoglobin (Bld) [Mass/Vol] 14.1 g/dL 14 - 18 g/dL [employer] Phone: MCH (RBC) [Entitic mass] 29.9 pg 27 - 31.3 pg [employer] Phone: MCHC 33.6 % 33 - 37 % [employer] Phone: MCV (RBC) [Entitic vol] 89.0 fL 80 - 100 fL [employer] Phone: Platelets (Bld) [#/Vol] 140 10*3/uL 130 - 400 K/uL [employer] Phone: RBC (Bld) [#/Vol] 4.73 10*6/uL [employer] Phone: WBC (Bld) [#/Vol] 5.7 10*3/uL 4.8 - 10.8 K/uL [facility] [employer] Work Phone: CBC With Platelet No Differe ngozion 07-08-2019 Erythrocyte distribution width (RBC) [Ratio] 14.0 % Normal 11.5-14.5 [facility] Comment on above: Performed By: #### C BCND #### [facility] [address] [place] [address] Hematocrit (Bld) [Volume fraction] 42.1 % Normal 42.0-52.0 [facility] Comment on above: Performed By: #### C BCND #### [facility] [address] [place] [address] Hemoglobin (Bld) [Mass/Vol] 14.1 g/dL Normal 14.0-18.0 [facility] Comment on above: Performed By: #### C BCND #### [facility] [address] [place] [address] MCH (RBC) [Entitic mass] 29.9 pg Normal 27.0-31.3 [facility] Comment on above: Performed By: #### C BCND #### [facility] [address] [place] [address] MCHC (RBC) [Mass/Vol] 33.6 % Normal 33.0-37.0 [facility] Comment on above: Performed By: #### C BCND #### [facility] [address] [place] [address] MCV (RBC) [Entitic vol] 89.0 fL Normal 80.0-100.0 [facility] Comment on above: Performed By: #### C BCND #### [facility] [address] [place] [address] Platelets (Bld) [#/Vol] 140 10*3/uL Normal 130-400 [facility] Comment on above: Performed By: #### C BCND #### [facility] [address] [place] [address] RBC (Bld) [#/Vol] 4.73 10*6/uL Normal 4.70-6.10 [facility] Comment on above: Performed By: #### C BCND #### [facility] [address] [place] [address] WBC (Bld) [#/Vol] 5.7 10*3/uL Normal 4.8-10.8 [facility] Comment on above: Performed By: #### C BCND #### [facility] [address] [place] [address] FLUORO FOR SURGICAL PROCEDUR ESon 07-08-2019 FLUORO [...] Simon Somers MD 07/09/19 Final result Normal [facility] PROTIME-INROrdered By: Carlos Redd on 07-08-2019 INR Coag (PPP) [Relative time] 1.1 {INR} [employer] Phone: Comment on above: Warfarin Therapy INR Therapeutic: 2.0-3.0 With Mechanical Valve: >2.5 Low-intensity Therapeutic Range: 1.5-2.0 Mod-intensity Therapeutic Range: 2.0-3.0 High-intensity Therapeutic Range: 2.5-3.5 HIgh-intensity Therapeutic Range: 3.0-4.0 Common Critical/Alarm Value: 5.0 Common Upper Limit Reported: 10.0 Effective 02/06/2019: Please note methodology and/or reference ranges have changed. PT Coag (PPP) [Time] 14.1 s [employer] Phone: Comment on above: Effective 02/06/19 Please note methodology and/or reference ranges have changed. Partial Thromboplastin Timeo n 07-08-2019 aPTT Coag (Bld) [Time] 33.3 s Normal 24.4-36.8 [facility] Comment on above: Result Comment: Effe ctive 02/13/2019: Please note methodology and/or reference ranges have changed. aPTT - Heparin Therapeutic Range: 74.0 - 106 seconds Performed By: #### P TT #### [facility] [address] [place] [address] Prothrombin Timeon 9 INR Coag (PPP) [Relative time] 1.1 {INR} Normal [facility] Comment on above: Result Comment: Warf jessika Therapy INR Therapeutic: 2.0-3.0 With Mechanical Valve: >2.5 Low-intensity Therapeutic Range: 1.5-2.0 Mod-intensity Therapeutic Range: 2.0-3.0 High-intensity Therapeutic Range: 2.5-3.5 HIgh-intensity Therapeutic Range: 3.0-4.0 Common Critical/Alarm Value: 5.0 Common Upper Limit Reported: 10.0 Effective 02/06/2019: Please note methodology and/or reference ranges have changed. Performed By: #### P T #### [facility] [address] [place] [address] PT Coag (PPP) [Time] 14.1 s Normal 12.3-14.9 [facility] Comment on above: Result Comment: Effe ctive 02/06/19 Please note methodology and/or reference ranges have changed. Performed By: #### P T #### [facility] [address] [place] [address] CHEST AND LATERALon 02-07-20 18 [facility]AL [facility] [address] [place] [address] Patient Name: INDIO GUEVARA : 1945Sex: MAge: Race: WhiteMRN: [id number]. Location: OUTPPatient Status: DVisit #: [id number] Date: 02/06/2018 7:00:00 AMCompleted Date: 02/06/2018 09:23 AMRequesting Provider: SARINA GUZMAN Attending Provider: SAM GREER Report Copy To: Signs & Symptoms: Post Pacemaker/AICD PlacementHistory: Patient history not availableComments: Check Pacemaker/AICD Lead Position, Chest X-ray PA \EANDE\ LAT in Dept ;DO NOT lift affected arm above shoulder. S/P pacemaker/ICD implant. Verify lead placementExam: CHEST AND LATERALAccession #: [id number] CHEST AND LATERAL 02/06/2018 9:23 AM EDT [...] atelectasis Electronically signed by:Florence Vinson. Transcribed by: [email or web address], User Resident: Electronically Signed by: FLORENCE VINSON @ 02/06/2018 02:44 PM Normal [facility] Comment on above: Order Comment: Check Pacemaker/AICD Lead Position, Chest X-ray PA \EANDE\ LAT in Dept ;DO NOT lift affected arm above shoulder. S/P pacemaker/ICD implant. Verify lead placement Cardiovascular Lab Reporton 02-06-2018 Cardiovascular Lab Report [facility] Patient Name: Indio Guevara [facility] MR #: [id number] Physician: Sam MasonDepartment of Stiven GreerMedicine Service Date: 02/05/2018Division of Birthdate: 6Cardiology Room #: 3CD [id number] CardiovascularServicesUniversit y AeeiwstKvxor[address], [place] [address]Wqias Fax Cardiovascular Laboratory ReportINDICATION: Mr. Indio Guevara is a 72-year-old gentleman, who I saw inthe [place] office. He sees Dr. Long. He was referred for a CRTDprocedure. He has ejection fraction of 20% to 25%, chronic low ejectionfraction as well, he has a left bundle-branch block with a QRS duration ofapproximately 170 milliseconds.I saw him in the [place] office, went over the procedure, risks andbenefits [...] tethered with 0 silk.At that point, a 10-Malay docking station was placed.A long sheath with [...] minutes of fluoroscopy. The device was a [id number], serial number [id number]. The atrial lead is a Medtronic [id number]. The ventricular lead is a Medtronic [id number] [id number]. The leftventricular lead is a Medtronic [id number], serial number [id number].Sensed P and R waves were 3.5 mV [...] 02/05/2018/01:25 P/Sam Greer M.D.Date Trans: 02/06/2018 06:47 [id number]: Ren Marcial D.O. [address] [place], [place] [address]Mykel [facility] [address] [facility] Vital Signs Date Time Vital Sign Value Performing Clinician Faci lity 08-07-2019 16:25-0500 Diastolic blood pressure 78 mm[Hg] Enrique Haines MD Work Phone: [employer] Work Phone: 08-07-2019 16:25-0500 Heart rate 78 /min Enrique Haines MD Work Phone: [employer] Work Phone: 08-07-2019 16:25-0500 Respiratory rate 20 /min Enrique Haines MD Work Phone: [employer] Work Phone: 08-07-2019 16:25-0500 SaO2% (BldA) [Mass fraction] 95 % Enrique Haines MD Work Phone: [employer] Work Phone: 08-07-2019 16:25-0500 Systolic blood pressure 148 mm[Hg] Enrique Haines MD Work Phone: [employer] Work Phone: 08-07-2019 10:51-0500 Body height 184.2 cm Enrique Haines MD Work Phone: [employer] Work Phone: 08-07-2019 10:51-0500 Body mass index (BMI) [Ratio] 34.78 kg/m2 Enrique Haines MD Work Phone: [employer] Work Phone: 08-07-2019 10:51-0500 Body temperature 97.59 [degF] Enrique Haines MD Work Phone: [employer] Work Phone: 08-07-2019 10:51-0500 Body weight 117.94 kg Enrique Haines MD Work Phone: [employer] Work Phone: 07-08-2019 15:25-0500 Body temperature 98.01 [degF] Enrique Haines MD Work Phone: [employer] Work Phone: 07-08-2019 15:25-0500 Diastolic blood pressure 94 mm[Hg] Enrique Haines MD Work Phone: [employer] Work Phone: 07-08-2019 15:25-0500 Heart rate 78 /min Enrique Haines MD Work Phone: [employer] Work Phone: 07-08-2019 15:25-0500 Respiratory rate 16 /min Enrique Haines MD Work Phone: [employer] Work Phone: 07-08-2019 15:25-0500 SaO2% (BldA) [Mass fraction] 97 % Enrique Haines MD Work Phone: [employer] Work Phone: 07-08-2019 15:25-0500 Systolic blood pressure 158 mm[Hg] Enrique Haines MD Work Phone: [employer] Work Phone: 07-08-2019 11:45-0500 Body height 182.9 cm Enrique Haines MD Work Phone: [employer] Work Phone: 07-08-2019 11:45-0500 Body mass index (BMI) [Ratio] 35.26 kg/m2 Enrique Haines MD Work Phone: [employer] Work Phone: 07-08-2019 11:45-0500 Body weight 117.94 kg Enrique Haines MD Work Phone: [employer] Work Phone: Encounters Encounter Date Encounter Type Care Provider Facility Start: 02-17-2025 End: 02-17-2025 ambulatory [facility] Start: 01-26-2025 End: 01-26-2025 ambulatory Gill Coronaod MD Facility:[facility] Start: 01-01-2025 End: 01-01-2025 ambulatory [facility] Start: 12-25-2024 End: 12-25-2024 ambulatory [facility] Start: 12-09-2024 End: 12-09-2024 ambulatory [facility] Start: 12-01-2024 End: 12-31-2024 Pre-admission assessment [facility] Start: 11-20-2024 ambulatory [facility] Start: 10-28-2024 ambulatory [facility] Start: 10-21-2024 ambulatory [facility] Start: 09-17-2024 ambulatory [facility] Start: 08-19-2024 ambulatory [facility] Start: 07-31-2024 ambulatory [facility] Start: 07-25-2024 ambulatory [facility] Start: 07-08-2024 End: 07-08-2024 ambulatory [facility] Start: 07-04-2024 ambulatory [facility] Start: 06-23-2024 ambulatory [facility] Start: 06-11-2024 ambulatory [facility] Start: 05-16-2024 ambulatory [facility] Start: 05-16-2024 Encounter for preprocedural cardiovascular examination [facility] Start: 05-08-2024 ambulatory [facility] Start: 03-03-2024 ambulatory [facility] Start: 01-22-2023 ambulatory Nino BAE Facili ty:[facility]ON[facility] Start: 07-25-2022 End: 07-26-2022 ambulatory [...] Start: 08-07-2019 End: 08-07-2019 Patient encounter procedure [facility] Start: 08-07-2019 End: 08-07-2019 Subsequent hospital visit by physician Enrique Haines MD Work Phone: [facility] Comment on above: Post-op pain (Primar y Dx) Start: 08-07-2019 End: 08-10-2019 Patient encounter procedure [facility] Start: 08-07-2019 End: 08-09-2019 Subsequent hospital visit by physician Enrique Haines MD Work Phone: [facility] Comment on above: Pain Start: 07-08-2019 End: 07-08-2019 Patient encounter procedure [facility]RIQUE H. YANCY [facility] Start: 07-08-2019 End: 07-08-2019 Subsequent hospital visit by physician Enrique Haines MD Work Phone: [facility] Start: 07-08-2019 End: 07-11-2019 Patient encounter procedure ENRIQUE HAINES [facility] Start: 02-05-2018 End: 02-06-2018 Patient encounter SAM Bria GREER Facility:[facility] Start: 01-11-2018 End: 01-12-2018 Patient encounter PROVIDER UNKNOWN Facility:[facility] Start: 01-10-2018 End: 01-11-2018 Patient encounter DEFAULT PHYSICIAN Facility:[facility] Procedures Date Procedure Procedure Detail Performing Clinician Start: 09-30-[address] CASSANDRA LONG Comment on above: Performed By: #### P SAD #### [facility] [address] [place] [address] Dr. Javy Brian Start: 08-07-2019 INCENTIVE SPIROMETRY [...] 08/22/2019 Office Visit Neurosurgery Enrique Haines MD [address] [facility], [address] [id number] [employer] Start: 07-11-2019 End: 07-11-2019 Patient encounter procedure 07/11/2019 Office Visit Neurosurgery Enrique Haines MD [address] [facility], [address] [id number] [employer] Start: 03-30-2019 Influenza vaccination Flu vaccine (# 1) [employer] Phone: Start: 01-19-2019 Annual Wellness Visi t (AWV) Annual Wellness Visit (AWV) [employer] Phone: Start: 2011 Pneumococcal 65+ yea rs Vaccine (1 of 1 - PPSV23) Pneumococcal 65+ years Vaccine (1 of 1 - PPSV23) [employer] Phone: Start: 02-28-1996 Colon cancer screen colonoscopy Colon cancer screen colonoscopy [employer] Phone: Start: 02-28-1996 Shingles Vaccine (1 of 2) Lester gles Vaccine (1 of 2) [employer] Phone: Start: 1986 Lipid screen Lipid screen [facility] Work Phone: Start: 1957 DTaP/Tdap/Td vaccine (1 - Tdap) DTaP/Tdap/Td vaccine (1 - Tdap) [employer] Phone: Start: 1945 Hepatitis C screen Hepatitis C scree n [employer] Phone: EKG 12 Lead EKG 12 Lead ECG Routine 07/08/2019 12:00 PM EST [employer] Work Phone: Incentive spirometry [facility] Work Phone: Comment on above: Every 2hr while awak e until discontinued starting 07/08/2019 Every 2hr while awak e until discontinued starting 08/07/2019 Initiate Oxygen Ther apy Protocol [employer] Phone: Comment on above: Daily until disconti nued starting 07/08/2019 Daily until disconti nued starting 08/07/2019 Phase I & II - meter ed glucose [employer] Phone: Comment on above: As Needed until disc ontinued starting 07/08/2019 As Needed until disc ontinued starting 08/07/2019 End: 07-08-2019 Pulse Oximetry Spot Check Pulse Oximetry Spot Check Respiratory Care Routine One Time for 1 Occurrences starting 07/08/2019 until 07/08/2019 [employer] Phone: Comment on above: One Time for 1 Occur rences starting 07/08/2019 until 07/08/2019 End: 08-07-2019 Pulse Oximetry Spot Check Pulse Oximetry Spot Check Respiratory Care Routine One Time for 1 Occurrences starting 08/07/2019 until 08/07/2019 [employer] Phone: Comment on above: One Time for 1 Occur rences starting 08/07/2019 until 08/07/2019 Payers Date Payer Category Payer Unknown 2017 Medicare MEDICARE MEDICAR E PART A AND B xxxxxxxxxxx 2017-Present [phone] [place] [address] xxxxxxxxxxx [id number] 2017 Unknown MEDICAL M[employer] M [employer]ICAL MUTUAL [address] xxxxxxxxxxxx 2017-Present [phone] [address] [place] [address] xxxxxxxxxxxx [id number] 2017 Medicare [id number] 1959 Medicare [id number] 1959 Self-pay 1959 Unknown [id number] 1945 Unknown [id number] .182 1945 Unknown [id number] [id number] .182 1945 Unknown [id number] [id number] .182 1945 Unknown [id number] 2.16.840.1.963922.3.579.2 .182 1945 Unknown [id number] 2.16.840.1.910842.3.579.2 .593 1945 Unknown [id number] 2.16.840.1.378646.3.579.2 .593 1945 Unknown [id number] 2.16.840.1.111476.3.579.2 .593 1945 Unknown [id number] 2.16.840.1.766646.3.579.2 .593 1945 Unknown [id number] 2.16.840.1.304692.3.579.2 .593 1945 Unknown [id number] 2.16.840.1.815718.3.579.2 .593 1945 Unknown [id number] 2.16.840.1.449450.3.579.2 .727 1945 Unknown [id number] 2.16.840.1.644304.3.579.2 .727 1945 Unknown [id number] [id number] .196 Medicare [id number] Private Health Insurance [id number] Social History Date Type Detail Facility Start: 07-07-2019 End: 08-08-2019 Tobacco smoking status NHIS Never smoker [employer] Phone: Start: 07-07-2019 End: 08-08-2019 Alcohol intake Current non-drinker of alcohol (finding) [employer] Phone: Sex Assigned At Not on file [employer] Phone: Start: 12-28-2015 Tobacco smoking status Ex-smoker (fi nding) [facility] Comment on above: 40 years ago Sexual Orientation [facility] Sex Assigned At Male [facility] Start: 12-09-2015 Sex Male (finding) [facility] Medical Equipment Procedure Code Equipment Code Equipment Origin al Text Equipment Identifier Dates Lead Trial Compc t Perc 1x8 [id number] Start: 07-08-2019 Stimulator Intel lis Adaptive Stim Mri - [id number] Start: 08-07-2019 Lead Pain 1x8 60 cm Vectris [id number] Start: 08-07-2019 Lead Pain 1x8 60 cm Vectris [id number] Start: 08-07-2019 Clinical Notes 07-08-2019 to 01-01-2025 Alexandra Cody RN - 08/07/2019 4:19 PM Oralia Nolasco RN - 07/08/2019 3:27 PM Oralia Smith RN - 07/08/2019 3:08 PM Fouzia Talbert, RN - 07/07/2019 2:25 PM EST Note Date & Type Note Facility 01-01-2025 Note [facility] Patient in clinic today [...] in clinic in 2-3 months. Arelis Ridley APRN-LABORER [employer] [facility] Cardiovascular [place] (more content not included)... [facility] 01-01-2025 Note Patient is here toda y in office for a wound check. S/P generator change on 12/25/2024 Patient denies fever or chills, small amount of pain 1/10 occasionally, Redness noted around Tegaderm. Small amount of discharge noted on bandage. Review of Systems Constitutional: Negative. [facility] 12-25-2024 Note BiV-ICD GENERATOR RE PLACEMENT [...] weeks. 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 Use of blood products discussed with patient who. Additional Equipment Requests [facility] 12-25-2024 Note This report has been cancelled. [facility] 12-09-2024 Note [facility] [place] [facility] Reason for follow-up: BiV ICD HPI: [...] in follow up after recent admission to [facility] when he developed hypotension after GA for urologic surgery. He has history of non ischemic Cardiomyopathy and systolic heart failure with cath in 2007 at [facility] showing no significant CAD when his EF was 30%. He had a recent stress test at Dr Marcial's office which was negative. He has been maintained on coreg and Entresto maximum dosage for >4 months now. On his recent echocardiogram at [facility] there was reduced EF 30% and [...] Date BACK SURGERY (more content not included)... [facility] 11-21-2024 Note Copy of Medtronic Op tiVol report 11/17/24 Margie Stack PA-C [facility] Cardiovascular Medicine [phone] [facility] 11-21-2024 Note Provider called pt a nd son today for concerns of worsening heart failure index noted on device interrogation. Pt states that he feels well, denied any water retention, leg edema, or weight gain. Denied worsening SOB or orthopnea. States he has actually lost about 20-30 pounds on purpose, and remains fairly active. Therefore, message sent to [place] cardiology staff, Dr Long and Dr Rey with update of pt status, device at 3 month battery life and to monitor for upcoming device exchange for battery. Pt voiced understanding of red flag symptoms to call cardiology for- increased SOB, Orthopnea, weight gain, fatigue, or water retention. Melyssa Do [facility] Cardiology Available 7a-3pm via [employer] Chat [phone] [facility] 08-07-2019 History of Present illness Narrative disch inst and 2 presc given and explained to pt and son documented in this encounter [employer] Phone: 08-07-2019 Hospital Discharge instructions Alexandra Cody RN - 08/07/2019 Ice packs to the incision Shower on Sunday documented in this encounter [employer] Phone: 07-08-2019 History of Present illness Narrative [...] notified of above. documented in this encounter [employer] Phone: 07-08-2019 Hospital Discharge instructions Oralia Griffin RN - 07/08/2019 May shower and ambulate. Follow instructions of medtronic documented in this encounter [employer] Phone: Evaluation + Plan note No data available for this section [facility] Evaluation note Diagnosis Post-op pain- Primary Other acute postoperative pain documented in this encounter [employer] Phone: evaluation note* Diagnosis Pain Generalized pain documented in this encounter [employer] Phone: Hospital Discharge instructions No data available for this section [facility] Progress note No data available for this section 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 Reason for Referral Status Reason Specialty Diagnoses / Procedures Referred By Contact Referred To Contact Pending Review Radiology Diagnoses Pain Procedures Fluoro For Surgical Procedures Enrique Haines MD [address], [address] [place] [address] Additional Source Comments (unrecognized sect ion and content) No Status Records FoundNo Status Records FoundNo Status Records FoundNo Status Records FoundNo Status Records FoundNo Status Records Found INFORMATION SOURCE (unrecogn ized section and content) DATE CREATED AUTHOR 02/12/2018 [facility] DATE CREATED AUTHOR AUTHOR'S ORGANIZ ATION 08/09/2019 [facility] DATE CREATED AUTHOR AUTHOR'S ORGANIZ ATION 07/28/2022 [facility] DATE CREATED AUTHOR AUTHOR'S ORGANIZ ATION 09/22/2022 [facility] DATE CREATED AUTHOR AUTHOR'S ORGANIZ ATION 02/13/2025 [facility] DATE CREATED AUTHOR AUTHOR'S ORGANIZ ATION 02/19/2025 [facility] Reason for Visit (unrecogniz ed section and content) Status Reason Specialty Diagnoses / Procedures Referre d By Contact Referred To Contact Diagnoses RADICULOPATHY, STENOSIS, SPONDYLOSIS Procedures IA NJX DX/THER SBST INTRLMNR CRV/THRC W/IMG GDN D.C.S. (DORSAL COLUMN STIMULATOR) TRIAL 1 HOUR/ 1 C-ARM/ [facility] (PAT SAME DAY OF SURGERY) Enrique Haines MD [address], [address] [place] [address] [facility] Status Reason Specialty Diagnoses / Procedures Referre d By Contact Referred To Contact Diagnoses Cervical spondylosis with myelopathy and radiculopathy RADICULOPATHY SPONDYLOSIS Procedures IA IMPLANT NEUROSTIM/REHABILITATION WORKER PERMANENT DCS (DORSAL COLUMN STIMULATOR)PLACEMENT, 1 HOUR/ 1 C-ARM/ [facility], *NEED MAGNET FOR PACEMAKER, PAT COMPLETED 07/08/19 Enrique Haines MD [address], [address] [place] [address] [facility] Patient Care team informatio n (unrecognized section and content) Personnel Name: ANIKET REN LOPEZ DO Address: [address] [place] [address] [employer]: FOR RECORDS PERTAINING TO PATIENTS WHO [...] BE BASED ON THE PRIMARY CLINICAL RECORDS. [employer] provides no warranty or guarantee of the accuracy or completeness of information in this document.
[2025-03-02 11:54] VITALS: BP 150/81; PULSE 70; O2SAT 94
[2025-03-02] MEDS: LIDOCAINE HCL 2% 400 MG/20 ML MDV INJ (11:57)
[2025-03-02] MEDS: BUPIVACAINE HCL 0.25% PF 25 MG/10 ML VIAL 8 ML INJ (11:57)
[2025-03-02 11:59] VITALS: BP 150/81; PULSE 72; O2SAT 96
--- NOTE | 2025-03-02 11:59 | W.PM.PROCNOT ---
Date of procedure: 03/02/25 Pre-op diagnosis: Pain due to lumbar spondylosis without myelopathy Post-op diagnosis: same as pre-op Procedure: Procedure: Bilateral L1-2, 2-3 medial branch block Medications: Bupivacaine 0.25% 6cc The patient was seen and examined in the preoperative holding area.? An informed consent was obtained and placed on the chart.? The patient was brought to the medical procedure unit and placed in the prone position.? A timeout was completed verifying correct patient, procedure site, positioning, plan, and special equipment.? Using aseptic technique, the needle was placed at left L1. Under direct fluoroscopic visualization a Quincke-tipped spinal needle was advanced to the junction of the superior articulating process with the transverse process at the designated medial branch segment.? Preceded by negative aspiration, the above-mentioned injectate was placed in 1 mL aliquots.? The procedure was repeated at left L2, 3.? The needle was removed and insertion site was covered. The same procedure, at the same levels, was completed on the right side. The patient was taken to the postprocedural recovery area and monitored for an appropriate length of time before found suitable for discharge in the company of a responsible adult. Anesthesia: Local Surgeon: Gill Coronado Pathology: none sent Condition: stable Disposition: no change
== END 2025-03-02 12:04 | disposition home or self-care (01) ==
LOC: SURGOUT 10:43
PROVIDERS: PCP Internal Medicine; Visit Provider Anesthesiology
DX: M47.816 Spondylosis without myelopathy or radiculopathy, lumbar region (principal); M54.50 Low back pain, unspecified
CPT/HCPCS: 64493; 64494; J0665

== ENCOUNTER 2025-03-05 10:12 | Outpatient (OUT) | payer MEDICARE, OTHER, SELFPAY ==
--- NOTE | 2025-03-05 10:28 | PM.CN ---
Consult Note: HPI Data of Consult Patient: known to practice within the last 3 years Consult date: 02/04/25 Requesting Physician: Gissel Sequeira NP Primary Care Provider: GIAN MARCIAL DO Consult Narrative Reason for consult: low back pain Narrative: pleasant 79 year old male presents for evaluation of chronic thoracic and lumbar pain, hx of l4,5,S1 fusion and medtronic SCS implant as of 2019, who has failed to benefit from > 6 weeks of PT, provider guided HEP, heat, ice, tylenol, NSAIDs. currently utilizing duloxetine, lyrica, tylenol, baclofen with mild relief. pain today 6/10 aching, pain significantly increased with standing and walking. radicular pain well controlled with scs per pt. denies falls or injury over the last 6 months. of note pt has a medtronic pacemaker as well. recently underwent thoracic xray and lumbar CT which shows significant multilevel spondylosis, DDD, and stenosis. pain today 4-5/10 increasing to 10/10 with standing, walking, stairs, activity, and ADLs. recently underwent bilateral L1/2 L2/3 facet medial branch block #1 with >80% improvement while anesthetized, preop pain up to 10/10 post op pain 1/10 for 3-4 hours after the injection. noted significant improvement in pain with standing up straight, twisting, walking, and yardwork. cc:: CC: Gissel Sequeira NP Review of Systems ROS Status of ROS 10 or more systems reviewed and unremarkable except as noted in history and below Musculoskeletal Reports: back pain and extremity pain PFSH PFSH Medical History (Updated 03/05/25 @ 10:30 by Gissel Sequeira NP) Pacemaker ?Z95.0 - Presence of cardiac pacemaker (ICD-10) Social History Smoking status: Never smoker Little interest or pleasure in doing things: not at all Feeling down, depressed, or hopeless: not at all Meds Home Medications and Allergies Home Medications ?Medication ?Instructions ?Recorded ?Confirmed ?Type allopurinol 300 mg tablet 300 mg PO DAILY 11/06/24 03/02/25 History dapagliflozin propanediol 10 mg 10 mg PO DAILY 11/06/24 03/02/25 History tablet (Farxiga) duloxetine 60 mg capsule,delayed 60 mg PO DAILY 11/06/24 03/02/25 History release (Cymbalta) famotidine 40 mg tablet 40 mg PO DAILY 11/06/24 03/02/25 History finasteride 5 mg tablet 5 mg PO DAILY 11/06/24 03/02/25 History furosemide 20 mg tablet mg 11/06/24 History hydroxychloroquine 200 mg tablet 200 mg PO DAILY 11/06/24 03/02/25 History lubiprostone 8 mcg capsule 8 mcg PO BID 11/06/24 03/02/25 History montelukast 10 mg tablet 10 mg PO DAILY 11/06/24 03/02/25 History pregabalin 200 mg capsule 200 mg PO Q12H 11/06/24 03/02/25 History rosuvastatin 10 mg tablet 10 mg PO DAILY 11/06/24 03/02/25 History sacubitril 49 mg-valsartan 51 mg 1 tab PO BID 11/06/24 03/02/25 History tablet (Entresto) Allergies Allergy/AdvReac Type Severity Reaction Status Date / Time No Known Drug Allergies Allergy Verified 03/02/25 10:55 Exam Constitutional Documenting provider has reviewed patient's vital signs: yes Common normals: no apparent distress, oriented x3, healthy appearing, alert and well nourished General appearance: cooperative HENMT Common normals: normocephalic, hearing grossly normal bilaterally and moist oral mucous membranes Head and scalp: normocephalic Eye Common normals: PERRL Pupil: PERRL Neck & C-Spine Common normals: full ROM General: normal visual inspection Chest Common normals: inspection of chest normal Respiratory Common normals: normal respiratory effort, no retractions and no use of accessory muscles Back & Pelvis Thoracic spine/upper back: ROM limited, pain with ROM and thoracic spinal tenderness T-spine tenderness location: T10, T11 and T12 Lumbar spine/lower back: ROM limited, pain with ROM, lumbar spinal tenderness Lumbar spinal tenderness location: L1, L2 and L3 and straight leg raise negative bilaterally Other: strength 5/5 in BLE sensation intact BLE Neuro Common normals: oriented x3 Sensorium/orientation: alert Psych Common normals: mental status grossly normal, thought process normal, cooperative, affect normal, speech normal and activity/motor behavior normal Speech: normal speech Thought process: normal thought process Results Additional Findings Additional findings: If on a controlled substance or opioids, I have checked an OARRS report on this patient and there are no aberrancies noted in the prescribing history.??If on a controlled substance or opioid a drug screen was completed and reviewed within the last year, and if there has not been a drug screen completed we ordered one today to monitor higher risk, state monitored pain medication use. As part of providing excellent, safe, comprehensive care, the following was completed at our patient's visit: 1. A medication reconciliation and review to ensure accurate knowledge of current/active medications, including asking our patients to inform us about any [id number] medications or herbal remedies/nutritional supplements/alternative remedies. 2. A review to specifically ensure our patients have had annual screening for screening for depression, screening for tobacco use, and screening for unhealthy alcohol use. For concerning screenings had a discussion with the patient, provided patient education, and recommended follow-up with primary care provider when appropriate. If patient noted with a risk of falling, they received education on strength, gait, and balance training to prevent future risk of falling. Portions of this note may have been carried over from the previous visit and updated as appropriate. Please note this office utilizes paper charting in addition to the electronic medical record. A list of current medications, vitals, and PMH is available there as the clinical staff outside of myself do not have access to [employer] charting during the clinic day operations. As part of providing quality comprehensive care the current medications, vitals, and PMH were reviewed in the paper chart. Assessment and Plan Assessment and Plan (1) Lumbar spondylosis: Assessment and Plan: The patient has had over 3 months of moderate to severe low back pain with functional impairment and inadequate response to conservative care including NSAIDS (unless there are contraindication such as concurrent blood thinners), multiple oral or topical pain medications, and home exercise program/physical therapy.? Patient has completed >6 weeks of guided home exercise program and/or formal physical therapy program without relief of their symptoms.? The Oswestry Disability Index was completed, and the patient scored a 43%.? The patient noted the following:?? moderate to severe pain impacting standing, walking, ADLs, sleeping, social life, travel We discussed the risks and benefits of the procedure with the patient, and we are NOT planning on using sedation as outlined in the guidelines from Medicare unless there is a documented reason that sedation would be strongly recommended.?? ?The procedure will be completed with fluoroscopic guidance.? (2) Lumbar stenosis with neurogenic claudication: Assessment and Plan: 01/26/25 right L3/4 L4/5 TFESI 80% improvement ongoing (3) Failed back syndrome: (4) S/P insertion of spinal cord stimulator: (5) Thoracic spondylosis: (6) Myalgia, other site: Plan 79 year old male with chronic thoracic and lumbar pain post scs implant and l4,5,s1 fusion with severe pain unresponsive to > 6 weeks of PT, provider guided HEP, heat, ice, tylenol, nsaids. proceed with bilateral L1/2 L2/3 facet medial branch block x2 in consideration of RFA. dc baclofen due to ineffectiviness, start flexeril 5-10mg BID PRN pain/spasms. i did review with pt this is higher risk with his hx of CKD and recent GFR of 44 pt advised to monitor for side effects and call our office if any changes. f/u after each injection
--- NOTE | 2025-03-05 10:32 | PM.CN ---
Consult Note: HPI Data of Consult Patient: known to practice within the last 3 years Consult date: 03/05/25 Requesting Physician: Gissel Sequeira NP Primary Care Provider: GIAN MARCIAL DO Consult Narrative Reason for consult: low back pain Narrative: pleasant 80 year old male presents for evaluation of chronic thoracic and lumbar pain, hx of l4,5,S1 fusion and medtronic SCS implant as of 2019, who has failed to benefit from > 6 weeks of PT, provider guided HEP, heat, ice, tylenol, NSAIDs. currently utilizing duloxetine, lyrica, tylenol, baclofen with mild relief. radicular pain well controlled with scs per pt. denies falls or injury over the last 6 months. of note pt has a medtronic pacemaker as well. recently underwent thoracic xray and lumbar CT which shows significant multilevel spondylosis, DDD, and stenosis. pain today 4-5/10 increasing to 10/10 with standing, walking, stairs, activity, and ADLs. recently underwent bilateral L1/2 L2/3 facet medial branch block #1 with >80% improvement while anesthetized, preop pain up to 10/10 post op pain 1/10 for 3-4 hours after the injection. noted significant improvement in pain with standing up straight, twisting, walking, and yardwork. cc:: CC: Gissel Sequeira NP [facility] Medical History (Updated 03/05/25 @ 10:30 by Gissel Sequeira NP) Pacemaker ?Z95.0 - Presence of cardiac pacemaker (ICD-10) Social History Smoking status: Never smoker Little interest or pleasure in doing things: not at all Feeling down, depressed, or hopeless: not at all Meds Home Medications and Allergies Home Medications ?Medication ?Instructions ?Recorded ?Confirmed ?Type allopurinol 300 mg tablet 300 mg PO DAILY 11/06/24 03/02/25 History dapagliflozin propanediol 10 mg 10 mg PO DAILY 11/06/24 03/02/25 History tablet (Farxiga) duloxetine 60 mg capsule,delayed 60 mg PO DAILY 11/06/24 03/02/25 History release (Cymbalta) famotidine 40 mg tablet 40 mg PO DAILY 11/06/24 03/02/25 History finasteride 5 mg tablet 5 mg PO DAILY 11/06/24 03/02/25 History furosemide 20 mg tablet mg 11/06/24 History hydroxychloroquine 200 mg tablet 200 mg PO DAILY 11/06/24 03/02/25 History lubiprostone 8 mcg capsule 8 mcg PO BID 11/06/24 03/02/25 History montelukast 10 mg tablet 10 mg PO DAILY 11/06/24 03/02/25 History pregabalin 200 mg capsule 200 mg PO Q12H 11/06/24 03/02/25 History rosuvastatin 10 mg tablet 10 mg PO DAILY 11/06/24 03/02/25 History sacubitril 49 mg-valsartan 51 mg 1 tab PO BID 11/06/24 03/02/25 History tablet (Entresto) Allergies Allergy/AdvReac Type Severity Reaction Status Date / Time No Known Drug Allergies Allergy Verified 03/02/25 10:55 Exam Constitutional Documenting provider has reviewed patient's vital signs: yes Common normals: no apparent distress, oriented x3, healthy appearing, alert and well nourished General appearance: cooperative HENMT Common normals: normocephalic, hearing grossly normal bilaterally and moist oral mucous membranes Head and scalp: normocephalic Eye Common normals: PERRL Pupil: PERRL Neck & C-Spine Common normals: full ROM General: normal visual inspection Chest Common normals: inspection of chest normal Respiratory Common normals: normal respiratory effort, no retractions and no use of accessory muscles Neuro Common normals: oriented x3 Sensorium/orientation: alert Psych Common normals: mental status grossly normal, thought process normal, cooperative, affect normal, speech normal and activity/motor behavior normal Speech: normal speech Thought process: normal thought process Results Additional Findings Additional findings: If on a controlled substance or opioids, I have checked an OARRS report on this patient and there are no aberrancies noted in the prescribing history.??If on a controlled substance or opioid a drug screen was completed and reviewed within the last year, and if there has not been a drug screen completed we ordered one today to monitor higher risk, state monitored pain medication use. As part of providing excellent, safe, comprehensive care, the following was completed at our patient's visit: 1. A medication reconciliation and review to ensure accurate knowledge of current/active medications, including asking our patients to inform us about any [id number] medications or herbal remedies/nutritional supplements/alternative remedies. 2. A review to specifically ensure our patients have had annual screening for screening for depression, screening for tobacco use, and screening for unhealthy alcohol use. For concerning screenings had a discussion with the patient, provided patient education, and recommended follow-up with primary care provider when appropriate. If patient noted with a risk of falling, they received education on strength, gait, and balance training to prevent future risk of falling. Portions of this note may have been carried over from the previous visit and updated as appropriate. Please note this office utilizes paper charting in addition to the electronic medical record. A list of current medications, vitals, and PMH is available there as the clinical staff outside of myself do not have access to [employer] charting during the clinic day operations. As part of providing quality comprehensive care the current medications, vitals, and PMH were reviewed in the paper chart. Assessment and Plan Assessment and Plan (1) Lumbar spondylosis: Assessment and Plan: The patient has had over 3 months of moderate to severe low back pain with functional impairment and inadequate response to conservative care including NSAIDS (unless there are contraindication such as concurrent blood thinners), multiple oral or topical pain medications, and home exercise program/physical therapy.? Patient has completed >6 weeks of guided home exercise program and/or formal physical therapy program without relief of their symptoms.? The Oswestry Disability Index was completed, and the patient scored a 43%.? The patient noted the following:?? moderate to severe pain impacting standing, walking, ADLs, sleeping, social life, travel We discussed the risks and benefits of the procedure with the patient, and we are NOT planning on using sedation as outlined in the guidelines from Medicare unless there is a documented reason that sedation would be strongly recommended.?? ?The procedure will be completed with fluoroscopic guidance.? (2) Lumbar stenosis with neurogenic claudication: Assessment and Plan: 01/26/25 right L3/4 L4/5 TFESI 80% improvement ongoing (3) Failed back syndrome: (4) S/P insertion of spinal cord stimulator: (5) Thoracic spondylosis: (6) Myalgia, other site: Plan 80 year old male with chronic thoracic and lumbar pain post scs implant and l4,5,s1 fusion with severe pain unresponsive to > 6 weeks of PT, provider guided HEP, heat, ice, tylenol, nsaids. proceed with bilateral L1/2 L2/3 facet medial branch block x2 in consideration of RFA. dc baclofen due to ineffectiviness, start flexeril 5-10mg BID PRN pain/spasms. i did review with pt this is higher risk with his hx of CKD and recent GFR of 44 pt advised to monitor for side effects and call our office if any changes. f/u after each injection
== END 2025-03-05 10:13 | disposition home or self-care (01) ==
PROVIDERS: PCP Internal Medicine; Visit Provider Nurse Practitioner
DX: M47.816 Spondylosis without myelopathy or radiculopathy, lumbar region (principal); M48.062 Spinal stenosis, lumbar region with neurogenic claudication; M96.1 Postlaminectomy syndrome, not elsewhere classified; M47.814 Spondylosis without myelopathy or radiculopathy, thoracic region; M79.18 Myalgia, other site; Z96.82 Presence of neurostimulator
CPT/HCPCS: G0463

== ENCOUNTER 2025-03-16 07:20 | Day surgery (SDC) | payer MEDICARE, OTHER, SELFPAY ==
--- OUTSIDE RECORDS SUMMARY | 2025-03-16 07:23 | XMS_ITS | Clinical Summary ---
Author Organization [facility] Address [address] [place] [address] Care Team Providers Care Quiller Tender Name Role Phone Ren Medrano MD Primary Care Provider [phone] Allergies Active Allergy Reactions Criticality Noted Date [...] Assessment & Plan (04/25/2023 11:25 AM EDT): [facility] IIb- EF recovered 50-55% on current echo [...] Encounters Date Type Department Care Team Description 02/25/2025 11:30 AM EDT Ancillary Procedure [facility] [address] [place] [phone] Pre-operative cardiovascular examination, ICD in place 02/24/2025 6:30 PM EDT Ancillary Procedure [facility] [address] [place] [phone] Pre-operative cardiovascular examination, ICD in place 02/17/2025 1:00 PM EDT Ancillary Procedure [place] [address] [place] [address] Encounter for implantable defibrillator reprogramming or check 02/17/2025 Orders Only [facility] [address] [place] [phone] Laura Pardo MD 02/17/2025 Orders Only [facility] [address] [place] [phone] Jose Angel Rey MD 01/01/2025 11:40 AM EDT Office Visit 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); Biventricular implantable cardioverter-defibrill ator (ICD) in situ; Visit for wound check 12/25/2024 3:00 PM EDT - 12/25/2024 4:00 PM EDT Surgery [facility] Heart [facility] [address] [place] [address] Jose Angel Rey MD Generator change ICD BiV [[id number]] 12/25/2024 12:41 PM EDT - 12/25/2024 7:32 PM EDT Hospital Encounter [facility] Heart [facility] [address] [place] [address] Jose Angel Rey MD NICM (nonischemic cardiomyopathy) ([facility]) Discharge Disposition: Home or Self Care () 12/25/2024 Orders Only [facility] [address] [place] [address] Latrice Jewell RN 12/25/2024 Travel 12/17/2024 Orders Only [facility] [address] [place] [address] Jose Angel Rey MD 12/16/2024 Travel from Last 3 Months Family History Medical [...] Care Team (Late st Contact Info) Description 05/05/2025 9:00 AM EDT Office Visit [facility] [address] [place] [address] Jose Angel Rey MD [address] [place] [address] Health Maintenance Due Date Last Done Comments Medicare Annual Wellness (AWV) 1945 Depression Screening 1958 Zoster Vaccines (1 of 2) 02/28/1996 Fall Risk Screening 2011 COVID-19 Vaccine ( season) 2024 04/27/2023, 06/02/2021, 09/26/2020, Additional history exists Influenza Vaccine (#1) 2025 , 04/06/2020, 04/08/2019, Additional history exists Adult Tetanus 02/25/2035 02/25/2025, 02/28/2024 Pneumococcal Vaccine: 50+ Years Completed 02/28/2024 [...] this topic Medical Devices Implanted Type Area Intelligence Agent Device Identifier Shelf Expiration Date Model / Serial / Lot [id number] Amplia Mri Quad Performance Reporter-D [id number] Implanted:02/05 (Quantity not on file) CAKE PRESS OPERATOR-D ICD [id number] AMPLIA MRI QUAD CAKE PRESS OPERATOR-D / [id number] / [place] Xt Hf Quad Performance Reporter-D Implanted:Qty: 1 on 12/25/2024 by Jose Angel Rey MD at [facility] CAKE PRESS OPERATOR-D ICD Left: Chest Medtronic 02/03/2026 [id number] / [id number] / Procedures Procedure Name Priority Date/Time Associated Diagnosis Comments CARDIAC DEVICE CHECK CHECK - REMOTE Routine 03/05/2025 3:56 PM EDT Pre-operative cardiovascular examination, ICD in place CARDIAC DEVICE CHECK CHECK - REMOTE Routine 03/05/2025 3:49 PM EDT Pre-operative cardiovascular examination, ICD in place CARDIAC DEVICE CHECK - IN CLINIC - ICD BIVENTRICULAR CHAMBER W/ PROG Routine 02/17/2025 4:49 PM EDT Encounter for implantable defibrillator reprogramming or check CARDIAC DEVICE CHECK - REMOTE - ICD Routine 02/17/2025 12:00 AM EDT CARDIAC DEVICE CHECK - REMOTE - ICD Routine 02/17/2025 12:00 AM EDT GENERATOR CHANGE ICD BIV Routine 12/25/2024 6:24 PM EDT NICM (nonischemic cardiomyopathy) (CMS/HCC) CARDIAC DEVICE CHECK - REMOTE ALERT - ICD Routine 12/17/2024 12:00 AM EDT from Last 3 Months Results * CARDIAC DEVICE CHECK - REMOTE - ICD (03/05/2025 3:56 PM EDT) Only the most recent of2 resultswithin the time period is included. us Roldan Chang MD CV IMPLANTABLE CARDIAC DEVICE TN OCEDURES Final Result CPACS * CARDIAC DEVICE CHECK - IN CLINIC [...] Angel Rey MD CV IMPLANTABLE CARDIAC DEVICE TN OCEDURES Final Result * Cardiac device check - Remote ICD (02/17/2025 12:00 AM EDT) Only the most recent of2 resultswithin the time period is included. Anatomical Region Laterality Modality Other 02/17/2025 Laura Pardo MD CV IMPLANTABLE CARDIAC DEVICE PROCEDURES Final Result * GENERATOR CHANGE ICD BIV [...] Angel Rey MD CV IMPLANTABLE CARDIAC DEVICE [place] OCEDURES Final Result from Last 3 Months Insurance MEDICARE Member Subscriber Plan / Payer (Ef fective 2015-Present) Name:Kevin Aiken Member ID:[id number] Relation to Subscriber:Self Name:Kevin Aiken Subscriber ID:[id number] Payer ID:[id number] Group ID:Not on file Type:Medicare Address: [id number] [employer] Care Teams Quiller Tender Relationship Specialty Start Date End Date Ren Medrano MD [facility] [place] [address] PCP - General 06/21/22
--- OUTSIDE RECORDS SUMMARY | 2025-03-16 07:23 | XMS_ITS | Clinical Summary ---
Author Organization [facility] Address [address] [place], [place] [id number] Care Team Providers Care Algologist Name Role Phone Marcela Carter DO, Charles [...] 07/30/2024 Influenza Vaccine (#1) 2025 Care Teams Algologist Relationship Specialty Start Date End Date Ren Medrano Jr., [employer] [place] [address] PCP - General 04/03/03
--- OUTSIDE RECORDS SUMMARY | 2025-03-16 07:23 | XMS_ITS | Clinical Summary ---
Author Organization [facility] Address [address] [place] [address] Care Team Providers Care Slate Handler Name Role Phone Unavailable Primary Care Provider [...]
--- OUTSIDE RECORDS SUMMARY | 2025-03-16 07:23 | XMS_ITS | Encounter Summary ---
Author Organization [facility] Address [address] [place] [address] Care Team Providers Care Gore Maker Name Role Phone Ren Medrano MD Primary Care Provider [phone] Encounter Details Date Type Department Care Team (Late st Contact Info) Description 02/17/2025 Orders Only [facility] [address] [place] [address] Laura Pardo MD [address] [place] [address] Social History Tobacco Use Types [...] Description 05/05/2025 9:00 AM EDT Office Visit [facility] [address] [place] [address] Jose Angel Rey MD [address] [place] [address] documented as of this encounter Procedures Procedure Name Priority Date/Time Associated Diagnosis Comments CARDIAC DEVICE CHECK - REMOTE - ICD Routine 02/17/2025 12:00 AM EDT documented in this encounter Results * Cardiac device check - Remote ICD (02/17/2025 12:00 AM EDT) Anatomical Region Laterality Modality Other 02/17/2025 Laura Pardo MD CV IMPLANTABLE CARDIAC DEVICE PROCEDURES Final Result documented in this encounter Visit Diagnoses Not on filedocumented in this encounter Care Teams Gore Maker Relationship Specialty Start Date End Date Ren Medrano MD [address] [place] [phone] PCP - General 06/21/22 documented as of this encounter
--- OUTSIDE RECORDS SUMMARY | 2025-03-16 07:23 | XMS_ITS | Encounter Summary ---
Author Organization [facility] Address [address] [place] [address] Care Team Providers Care Associate Software Development Engineer Name Role Phone Ren Medrano MD Primary Care Provider [phone] Encounter Details Date Type Department Care Team (Late st Contact Info) Description 02/17/2025 Orders Only [facility] [address] [place] [address] Jose Angel Rey MD [address] [place] [address] Social History Tobacco Use Types [...] Description 05/05/2025 9:00 AM EDT Office Visit [facility] [address] [place] [address] Jose Angel Rey MD [address] [place] [phone] documented as of this encounter Procedures Procedure Name Priority Date/Time Associated Diagnosis Comments CARDIAC DEVICE CHECK - REMOTE - ICD Routine 02/17/2025 12:00 AM EDT documented in this encounter Results * Cardiac device check - Remote ICD (02/17/2025 12:00 AM EDT) Anatomical Region Laterality Modality Other 02/17/2025 Jose Angel Rey MD CV IMPLANTABLE CARDIAC DEVICE WI OCEDURES Final Result documented in this encounter Visit Diagnoses Not on filedocumented in this encounter Care Teams Associate Software Development Engineer Relationship Specialty Start Date End Date Ren Medrano MD [address] [place] [phone] PCP - General 06/21/22 documented as of this encounter
--- OUTSIDE RECORDS SUMMARY | 2025-03-16 07:23 | XMS_ITS | Encounter Summary ---
Author Organization [facility] Address [address] [place] [address] Care Team Providers Care Evening Or Night Nurse Supervisor Name Role Phone Ren Medrano MD Primary Care Provider [phone] Reason for Visit * Reason Comments Med Refill Encounter Details Date Type Department Care Team (Late st Contact Info) Description 11/07/2022 Refill [facility] [address] [place] [address] Ralph Aguilar MD [address] [facility] [address] [address] [place] [address] Chronic systolic (congestive) heart failure [...] Description 05/05/2025 9:00 AM EDT Office Visit [facility] [address] [place] [phone] Jose Angel Rey MD [address] [place] [address] documented as of this encounter Visit Diagnoses Diagnosis Chronic systolic (congestive) heart failure (CMS/HCC) documented in this encounter Care Teams Evening Or Night Nurse Supervisor Relationship Specialty Start Date End Date Ren Medrano MD [facility] [place] [address] PCP - General 06/21/22 documented as of this encounter
--- OUTSIDE RECORDS SUMMARY | 2025-03-16 07:23 | XMS_ITS | Encounter Summary ---
Author Organization [facility] Address [address] [place] [address] Care Team Providers Care Atm Mechanic Name Role Phone Marcela Carter DO, Charles Lewis Primary Care Provi minoo Source Comments In the event this information is protected by the Federal Confidentiality of Alcohol and Drug AbusePatient Records regulations: The Federal rules restrict any use of the information to criminally investigate or prosecute any alcohol or drug abuse patient.[facility] Encounter Details Date Type Department Care Team (Late st Contact Info) Description 02/03/2015 Abstract Cardiology [address] [place] [address] Mark Domínguez MD [facility] [address] [place] [address] Social History Tobacco Use Types Packs/Day Years [...] on filedocumented in this encounter Care Teams Atm Mechanic Relationship Specialty Start Date End Date Ren Medrano Jr., DO [facility] [place] [address] PCP - General 04/03/03 documented as of this encounter
--- OUTSIDE RECORDS SUMMARY | 2025-03-16 07:24 | XMS_ITS | CCD ---
Author Organization [facility] Care Team Providers Care Speech Therapist Name Role Phone PHYSICIAN, DEFAULT Unavailable Unavailable PHYSICIAN, DEFAULT Unavailable Unavailable REN MARCIAL Unavailable Unavailable UNKNOWN, PROVIDER Unavailable Unavailable UNKNOWN, PROVIDER Unavailable Unavailable REN MARCIAL Unavailable Unavailable VALONE, REN Unavailable Unavailable SAM GREER Unavailable Unavailable SAM GREER Unavailable Unavailable REN MARCIAL Unavailable Unavailable VALONEREN Unavailable Unavailable YANCY, JENS H. Admitting Unavailable YANCY, JENS H. Attending Unavailable REN MARCIAL Primary Care Unavailable YANCY, JENS H. Attending Unavailable YANCY, JENS H. Referring Unavailable REN MARCIAL Primary Care Unavailable YANCY, JENS H. Admitting Unavailable YANCY, JENS H. Attending Unavailable REN MARCIAL Primary Care Unavailable YANCY, JENS H. Attending Unavailable YANCY, JENS H. Referring Unavailable REN MARCIAL Primary Care [...] Unavailable REN MARCIAL JR Primary Care Physician JOSE ANGEL REY Attending Unavailable SAVITA, JOSE ANGEL Referring Unavailable [...] EDUARD Referring Unavailable ELVIS, EDUARD Referring Unavailable DAMIANARELIS Attending Unavailable SAVITA, JOSE ANGEL Referring Unavailable SAVITA, JOSE ANGEL Referring Unavailable SAVITA, JOSE ANGEL Referring Unavailable SAVITA, JOSE ANGEL Admitting Unavailable SAVITA, JOSE ANGEL Attending Unavailable Ivonne MARTINEZ, Gill Thakkar Attending Unavailable Gileesa MARTINEZ, Gill Thakkar Attending Unavailable Allergies Allergy Classification Reported Allergen(s) Allergy Type Date of Onset Reaction(s) Facility (3 sources) tamsulosin Drug Allergy 06-30-2016 [facility] Repository (1 source) NO KNOWN DRUG ALLERGIES Drug allergy (disorder) 06-09-2009 [facility] Repository (3 sources) tamsulosin Drug Allergy 07-07-2019 [facility] (3 sources) tamsulosin; Translations: [tamsulosin] Drug Allergy 02-03-2015 [facility] Repository Medications Current Medications Medication Drug Class(es) Dates Sig (Normalized) Sig (Original) Acetaminophen / HYDROcodone (3 sources) Opioid Agonist Start: 08-07-2019 End: 08-07-2019 HYDROcodone-acetam inophen (NORCO) 5-325 MG per tablet 1 tablet Start: 07-08-2019 End: 07-08-2019 HYDROcodone-acetaminophen (N ORCO) 5-325 MG per tablet 1 tablet Start: 12-30-2015 [place] 325 mg-5 mg oral tablet 1 tab(s), [...] Onset: 02-05-2018 Chronic Other aftercare (1 source) 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; Translations: [NURSERYPERSON (CURRENT) USE OF ASPIRIN] Onset: 02-05-2018 Episodic [...] Range Facility Office Visiton 01-01-2025 Follow-up visit [id number] Jose Guevara 1945 M Date Provider Department Center 01/01/2025 [facility] Family History Problem Relation Age of Onset Stroke Father Family Status - Relation Status Age at Mother Father Brother Alive Level of Service:36040 CO POSTOP FOLLOW UP VISIT RELATED TO ORIGINAL PX Normal [facility] HPon 12-25-2024 [facility] Cardiology Note [facility] Reason for follow-up: BiV ICD HPI: Kevin Guevara is a 79 y.o. year old [...] 1.[address] ------- [address] Long 11/04/2021: Kevin Guevara is seen in follow up on NICM, SHF, s/p BiV/ICD. Visit of 01/14/2018: Kevin Guevara is seen in follow up after recent admission to [facility] when he developed hypotension after GA for urologic surgery. 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 He had a recent stress test at Dr Marcial's office which was negative. He has been maintained on coreg and Entresto maximum dosage for >4 months now. On his recent echocardiogram at [facility] there was reduced EF 30% and [...] BACK SURGERY (more content not included)... Normal [facility] Ronnell 12-25-2024 NURSNOTE RN educated pt on [...] off of unit with all of belongings. [facility] NURSNOTE CHG wipes and betadi ne nasal swabs completed. [facility] Orders Onlyon 12-25-2024 Orders Only [id number] Jose Guevara 1945 Date Provider Department Center 12/25/2024 REINA FRAZIER [facility] VASC LAB [facility] Family History Problem Relation Age of Onset Stroke Father Family Status - Relation Status Age at Mother Father Brother Alive [facility] Orders Onlyon 12-17-2024 Orders Only [id number] Jose Guevara 1945 Date Provider Department Center 12/17/2024 JOSE ANGEL ABRAMS [facility] CARD [facility] Family History Problem Relation Age of Onset Stroke Father Family Status - Relation Status Age at Mother Father Brother Alive [facility] Office Visiton 12-09-2024 Follow-up visit [id number] Jose Guevara 1945 Date Provider Department Center 12/09/2024 JOSE ANGEL ABRAMS CARD [facility] Family History Problem Relation Age of Onset Stroke Father Family Status - Relation Status Age at Mother Father Brother Alive Level of Service:07500 CO OFFICE/OUTPATIENT [facility] 60 MINUTES [facility] Documentationon 11-21-2024 Documentation [id number] Jose Guevara 1945 Date Provider Department Center 11/21/2024 JIA LEON [facility] HEART [facility] Family History Problem Relation Age of Onset Stroke Father Family Status - Relation Status Age at Father Reason for Visit and Comments: Congestive Heart Failure [127] Normal [facility] Orders Onlyon 11-17-2024 Orders Only [id number] GuevaraJose elham Sherman 1945 M Date Provider Department Center 11/17/2024 AGUEDA STARKEY [facility] CARD [facility] Family History Problem Relation Age of Onset Stroke Father Family Status - Relation Status Age at Father Normal [facility] PROF CHEM 8 (BAS METB)on Anion gap [Moles/Vol] 9.4 mmol/L Normal [facility] Comment on above: Performed By: #### B MP #### [facility] [address] [address] [address] Javy Brian Calcium [Mass/Vol] 9.7 mg/dL Normal 8.5-10.1 [facility] Comment on above: Performed By: #### B MP #### [facility] [address] [address] [address] Javy Brian Chloride [Moles/Vol] 106 mmol/L Normal 98-107 [facility] Comment on above: Performed By: #### B MP #### [facility] [address] [address] [address] Javy Brian CO2 [Moles/Vol] 30.4 mmol/L Normal 21.0-32.0 [facility] Comment on above: Performed By: #### B MP #### [facility] [address] [address] [address] Javy Brian Creatinine [Mass/Vol] 1.46 mg/dL Critically high 0.70-1.30 [facility] Comment on above: Performed By: #### B MP #### [facility] [address] [address] [address] Javy Brian EGFR-AF GRENADIAN 57 mL/min/1.73m2 Critically low >=60 [facility] Comment on above: Performed By: #### B MP #### [facility] [address] [address] [address] Javy Brian EGFR-NON AF GRENADIAN 47 mL/min/1.73m2 Critically low >=60 [facility] Comment on above: Performed By: #### B MP #### [facility] [address] [address] [address] Javy Brian Glucose [Mass/Vol] 99 mg/dL Normal 74-106 [facility] Comment on above: Performed By: #### B MP #### [facility] [address] [address] [address] Javy Brian Potassium [Moles/Vol] 4.8 mmol/L Normal 3.5-5.1 [facility] Comment on above: Performed By: #### B MP #### [facility] [address] [address] [address] Javy Brian Sodium [Moles/Vol] 141 mmol/L Normal 136-145 [facility] Comment on above: Performed By: #### B MP #### [facility] [address] [address] [address] Javy Brian Urea nitrogen [Mass/Vol] 23.0 mg/dL Critically high 7.0-18.0 [facility] Comment on above: Performed By: #### B MP #### [facility] [address] [address] [address] Javy Brian Urea nitrogen/Creatinin e [Mass ratio] 15.8 mg/mg Normal [facility] Comment on above: Performed By: #### B MP #### [facility] [address] [address] [address] Javy Brian PROF CHEM 8 (BAS METB)on Anion gap [Moles/Vol] 10.7 mmol/L Normal [facility] Comment on above: Performed By: #### B MP #### [facility] [address] [address] [address] Javy Brian Calcium [Mass/Vol] 9.7 mg/dL Normal 8.5-10.1 [facility] Comment on above: Performed By: #### B MP #### [facility] [address] [address] [address] Javy Brian Chloride [Moles/Vol] 106 mmol/L Normal 98-107 [facility] Comment on above: Performed By: #### B MP #### [facility] [address] [address] [address] Javy Brian CO2 [Moles/Vol] 29.5 mmol/L Normal 21.0-32.0 [facility] Comment on above: Performed By: #### B MP #### [facility] [address] [address] [address] Javy Brian Creatinine [Mass/Vol] 1.79 mg/dL Critically high 0.70-1.30 [facility] Comment on above: Performed By: #### B MP #### [facility] [address] [address] [address] Javy Brian EGFR-AF GRENADIAN 45 mL/min/1.73m2 Critically low >=60 [facility] Comment on above: Performed By: #### B MP #### [facility] [address] [address] [address] Javy Brian EGFR-NON AF GRENADIAN 37 mL/min/1.73m2 Critically low >=60 [facility] Comment on above: Performed By: #### B MP #### [facility] [address] [address] [address] Javy Brian Glucose [Mass/Vol] 94 mg/dL Normal 74-106 [facility] Comment on above: Performed By: #### B MP #### [facility] [address] [address] [address] Javy Brian Potassium [Moles/Vol] 5.2 mmol/L Critically high 3.5-5.1 [facility] Comment on above: Performed By: #### B MP #### [facility] [address] [address] [address] Javy Brian Sodium [Moles/Vol] 141 mmol/L Normal 136-145 [facility] Comment on above: Performed By: #### B MP #### [facility] [address] [address] [address] Javy Brian Urea nitrogen [Mass/Vol] 34.0 mg/dL Critically high 7.0-18.0 [facility] Comment on above: Performed By: #### B MP #### [facility] [address] [address] [address] Javy Brian Urea nitrogen/Creatinin e [Mass ratio] 19.0 mg/mg Normal [facility] Comment on above: Performed By: #### B MP #### [facility] [address] [address] [address] Javy Brian PROF CHEM 8 (BAS METB)on Anion gap [Moles/Vol] 12.0 mmol/L Normal [facility] Comment on above: Performed By: #### B MP #### [facility] [address] [address] [address] Javy Brian Calcium [Mass/Vol] 8.9 mg/dL Normal 8.5-10.1 [facility] Comment on above: Performed By: #### B MP #### [facility] [address] [place] [address] Dr. Javy Brian Chloride [Moles/Vol] 109 mmol/L Critically high 98-107 [facility] Comment on above: Performed By: #### B MP #### [facility] [address] [address] [address] Javy Brian CO2 [Moles/Vol] 29.0 mmol/L Normal 22.0-30.0 [facility] Comment on above: Performed By: #### B MP #### [facility] [address] [address] [address] Javy Brian Creatinine [Mass/Vol] 1.79 mg/dL Critically high 0.66-1.25 [facility] Comment on above: Performed By: #### B MP #### [facility] [address] [address] [address] Javy Brian EGFR-AF GRENADIAN 45 mL/min/1.73m2 Critically low >=60 [facility] Comment on above: Performed By: #### B MP #### [facility] [address] [address] [address] Javy Brian EGFR-NON AF GRENADIAN 37 mL/min/1.73m2 Critically low >=60 [facility] Comment on above: Performed By: #### B MP #### [facility] [address] [address] [address] Javy Brian Glucose [Mass/Vol] 92 mg/dL Normal 74-106 [facility] Comment on above: Performed By: #### B MP #### [facility] [address] [place] [address] Dr. Javy Brian Potassium [Moles/Vol] 5.0 mmol/L Normal 3.4-5.0 [facility] Comment on above: Performed By: #### B MP #### [facility] [address] [place] [address] Dr. Javy Brian Sodium [Moles/Vol] 145 mmol/L Normal 137-145 [facility] Comment on above: Performed By: #### B MP #### [facility] [address] [place] [address] Dr. Javy Brian Urea nitrogen [Mass/Vol] 35.0 mg/dL Critically high 7.0-18.0 [facility] Comment on above: Performed By: #### B MP #### [facility] [address] [place] [address] Dr. Javy Brian Urea nitrogen/Creatinin e [Mass ratio] 19.6 mg/mg Normal [facility] Comment on above: Performed By: #### B MP #### [facility] [address] [place] [address] Dr. Javy Brian CBC AUTO DIFFon 11-04-2021 BASO # 0.0 103/ul Normal 0.0-0.1 [facility] Comment on above: Performed By: #### C BC #### [facility] [address] [place] [address] Dr. Javy Brian Basophils/100 WBC (Bld) 0.7 % Normal 0.2-2.0 [facility] Comment on above: Performed By: #### C BC #### [facility] [address] [place] [address] Dr. Javy Brian EO # 0.2 103/ul Normal 0.0-0.7 [facility] Comment on above: Performed By: #### C BC #### [facility] [address] [place] [address] Dr. Javy Brian Eosinophils/100 WBC (Bld) 3.1 % Normal 0.9-7.0 [facility] Comment on above: Performed By: #### C BC #### [facility] [address] [place] [address] Dr. Javy Brian Erythrocyte distribution width (RBC) [Ratio] 14.3 % Normal 11.0-15.0 [facility] Comment on above: Performed By: #### C BC #### [facility] [address] [place] [address] Dr. Javy Brian Hematocrit (Bld) [Volume fraction] 43.5 % Normal 42.0-54.0 [facility] Comment on above: Performed By: #### C BC #### [facility] [address] [place] [address] Dr. Javy Brian Hemoglobin (Bld) [Mass/Vol] 13.7 g/dL Critically low 14.0-18.0 [facility] Comment on above: Performed By: #### C BC #### [facility] [address] [place] [address] Dr. Javy Brian IG # 0.01 10e3/ul Normal 0.00-0.03 [facility] Comment on above: Performed By: #### C BC #### [facility] [address] [place] [address] Dr. Javy Brian IG % 0.2 % Normal 0.0-0.5 [facility] Comment on above: Performed By: #### C BC #### [facility] [address] [place] [address] Dr. Javy Brian LYMPH # 1.4 103/ul Normal 1.2-3.8 [facility] Comment on above: Performed By: #### C BC #### [facility] [address] [place] [address] Dr. Javy Brian Lymphocytes/100 WBC (Bld) 23.6 % Normal 20.5-60.0 [facility] Comment on above: Performed By: #### C BC #### [facility] [address] [place] [address] Dr. Javy Brian MANUAL DIFF REQ NO Normal [facility] Comment on above: Performed By: #### C BC #### [facility] [address] [place] [address] Dr. Javy Brian MCH (RBC) [Entitic mass] 29.0 pg Normal 25.9-34.0 [facility] Comment on above: Performed By: #### C BC #### [facility] [address] [place] [address] Dr. Javy Brian MCHC (RBC) [Mass/Vol] 31.5 g/dL Normal 29.9-35.2 [facility] Comment on above: Performed By: #### C BC #### [facility] [address] [place] [address] Dr. Javy Brian MCV (RBC) [Entitic vol] 92.0 fL Normal 80.0-94.0 [facility] Comment on above: Performed By: #### C BC #### [facility] [address] [place] [address] Dr. Javy Brian MONO # 0.8 103/ul Normal 0.3-0.8 [facility] Comment on above: Performed By: #### C BC #### [facility] [address] [place] [address] Dr. Javy Brian Monocytes/100 WBC (Bld) 14.1 % Critically high 1.7-12.0 [facility] Comment on above: Performed By: #### C BC #### [facility] [address] [place] [address] Dr. Javy Brian NEUT # 3.4 103/ul Normal 1.4-6.5 [facility] Comment on above: Performed By: #### C BC #### [facility] [address] [place] [address] Dr. Javy Brian Neutrophils/100 WBC (Bld) 58.3 % Normal 43.0-75.0 [facility] Comment on above: Performed By: #### C BC #### [facility] [address] [address] [address] Javy Brian Platelet mean volume (Bld) [Entitic vol] 9.7 fL Normal 9.5-13.5 [facility] Comment on above: Performed By: #### C BC #### [facility] [address] [address] [address] Javy Brian PLT 113 103/ul Critically low 150-450 [facility] Comment on above: Performed By: #### C BC #### [facility] [address] [address] [address] Javy Brian RBC 4.73 106/ul Normal 4.70-6.10 [facility] Comment on above: Performed By: #### C BC #### [facility] [address] [place] [address] Dr. Javy Brian WBC 5.8 103/ul Normal 4.0-11.0 [facility] Comment on above: Performed By: #### C BC #### [facility] [address] [address] [address] Javy Brian PROF CHEM 8 (BAS METB)on Anion gap [Moles/Vol] 13.2 mmol/L Normal [facility] Comment on above: Performed By: #### B MP #### [facility] [address] [place] [address] Dr. Javy Brian Calcium [Mass/Vol] 9.1 mg/dL Normal 8.5-10.1 [facility] Comment on above: Performed By: #### B MP #### [facility] [address] [place] [address] Dr. Javy Brian Chloride [Moles/Vol] 110 mmol/L Critically high 98-107 [facility] Comment on above: Performed By: #### B MP #### [facility] [address] [place] [address] Dr. Javy Brian CO2 [Moles/Vol] 27.6 mmol/L Normal 22.0-30.0 [facility] Comment on above: Performed By: #### B MP #### [facility] [address] [address] [address] Javy Brian Creatinine [Mass/Vol] 1.61 mg/dL Critically high 0.66-1.25 [facility] Comment on above: Performed By: #### B MP #### [facility] [address] [address] [address] Javy Brian EGFR-AF GRENADIAN 51 mL/min/1.73m2 Critically low >=60 [facility] Comment on above: Performed By: #### B MP #### [facility] [address] [address] [address] Javy Brian EGFR-NON AF GRENADIAN 42 mL/min/1.73m2 Critically low >=60 [facility] Comment on above: Performed By: #### B MP #### [facility] [address] [place] [address] Dr. Javy Brian Glucose [Mass/Vol] 94 mg/dL Normal 74-106 [facility] Comment on above: Performed By: #### B MP #### [facility] [address] [place] [address] Dr. Javy Brian Potassium [Moles/Vol] 5.8 mmol/L Critically high 3.4-5.0 [facility] Comment on above: Performed By: #### B MP #### [facility] [address] [place] [address] Dr. Javy Brian Sodium [Moles/Vol] 145 mmol/L Normal 137-145 [facility] Comment on above: Performed By: #### B MP #### [facility] [address] [address] [address] Javy Brian Urea nitrogen [Mass/Vol] 27.0 mg/dL Critically high 7.0-18.0 [facility] Comment on above: Performed By: #### B MP #### [facility] [address] [place] [address] Dr. Javy Brian Urea nitrogen/Creatinin e [Mass ratio] 16.8 mg/mg Normal [facility] Comment on above: Performed By: #### B MP #### [facility] [address] [address] [address] Javy Brian Ambulatory Visit Summaryon 0 10-04-2021 Ambulatory Visit Summary KEVIN GUEVARA :1945 Visit Date:10/04/2021 Ambulatory Visit Instructions Your Diagnosis BPH with urinary obstruction Personal history of kidney stones Tests Performed Urnls Dip Stick Auto w/o Microscopy POC 29363 Your Care Team Attending Physician - Randall Heard Jr., MD Primary Care Physician - REN MARCIAL JR, DO This Is Your Medications List Contact prescribing physician if questions or concerns acetaminophen-hydrocodone ([place] 325 mg-5 mg oral tablet) allopurinol (allopurinol [...] Heard Jr., MD Where: [facility] Patient Educationon 10-05-19 Patient [...] Follow these instructions at home: ? Take [id number] and prescription medicines only as told by [...] a recent PSA for review. HPI Staff Kevin is a 2 month follow up with [...] Urnls Dip Stick Auto w/o Microscopy POC 96477 2. Personal history of kidney stones (Z87.442: [...] Tab, 12.5 (more content not included)... Normal [facility] Comment on above: Result Comment: Elec tronically Signed By: Félix Carter MD, Randall Espino\.br\Date and Time Signed: 10/04/21 11:52 EST\.br\Electronically Co-Signed By: Shakira Emery MA\.br\Date and Time Co-Signed: 10/04/21 11:49 EST Lab Reportson 10-03-2021 Lab Reports [id number] [facility] Fluoro For Surgical Procedur esOrdered By: Jens Haines on 08-08-2019 Impression: Fluorosc opic time 383.0 seconds. Spinal stimulating leads with leads at indeterminate spinal level. If there is clinical concern for desired level location, radiographs lumbar/thoracic spine recommended. [employer] Phone: Patient 1 : 1945 Age: 74 years Gender: Male Order Date: 08/07/2019 2:09 PM. Exam: FLUORO FOR SURGICAL PROCEDURES Number of Views: 2 Indication: Pain Comparison: None Findings: Spinal stimulating leads are noted with leads at indeterminate spinal level. Postoperative changes lower lumbar spine. [employer] Phone: [facility] Incoming R adiant Results From [facility] Gamercribe/Pacs - 08/08/2019 8:50 AM EST Patient : [...] desired level location, radiographs lumbar/thoracic spine recommended. [employer] Phone: FLUORO FOR SURGICAL PROCEDUR ESon 08-07-2019 [...] 07-08-2019 aPTT Coag (Bld) [Time] 33.3 s [employer] Phone: Comment on above: Effective 02/13/2019: Please note methodology and/or reference ranges have changed. aPTT - Heparin Therapeutic Range: 74.0 - 106 seconds BASIC METABOLIC PANELOrdered By: Tone Redd on 07-08-2019 Anion gap [Moles/Vol] 13 mmol/L [employer] Phone: Calcium [Mass/Vol] 9.6 mg/dL 8.5 - 9.9 mg/dL [employer] Phone: Chloride [Moles/Vol] 107 mmol/L [employer] Phone: CO2 [Moles/Vol] 22 mmol/L [employer] Phone: Creatinine [Mass/Vol] 1.02 mg/dL 0.7 - 1.2 mg/dL [employer] Phone: GFR >60.0 >60 [employer] Phone: Comment on above: >60 mL/min/1.73m2 EG FR, calc. for ages 18 and older using the MDRD formula (not corrected for weight), is valid for stable renal function. GFR Non- >60.0 >60 [employer] Phone: Comment on above: >60 mL/min/1.73m2 EG FR, calc. for ages 18 and older using the MDRD formula (not corrected for weight), is valid for stable renal function. Glucose [Mass/Vol] 98 mg/dL 70 - 99 mg/dL [employer] Phone: Potassium [Moles/Vol] 4.5 mmol/L [employer] Phone: Sodium [Moles/Vol] 142 mmol/L [employer] Phone: Urea nitrogen [Mass/Vol] 21 mg/dL 8 - 23 mg/dL [facility] Phone: Basic Metabolic Panelon 12-1 0-2019 Anion gap [Moles/Vol] 13 mmol/L Normal 9-15 [facility] Comment on above: Performed By: #### B MP #### [facility] [address] [place] [address] Calcium [Mass/Vol] 9.6 mg/dL Normal 8.5-9.9 [facility] Comment on above: Performed By: #### B MP #### [facility] [address] [place] [address] Chloride [Moles/Vol] 107 mmol/L Normal 95-107 [facility] Comment on above: Performed By: #### B MP #### [facility] [address] [place] [address] CO2 [Moles/Vol] 22 mmol/L Normal 20-31 [facility] Comment on above: Performed By: #### B MP #### [facility] [address] [place] [address] Creatinine [Mass/Vol] 1.02 mg/dL Normal 0.70-1.20 [facility] Comment on above: Performed By: #### B MP #### [facility] [address] [place] [address] GFR/1.73 sq M predicted among blacks MDRD (S/P/Bld) [Vol rate/Area] mL/min/{1.73_m2} Normal >60 [facility] Comment on above: Result Comment: >60 mL/min/1.73m2 EGFR, calc. for ages 18 and older using the MDRD formula (not corrected for weight), is valid for stable renal function. Performed By: #### B MP #### [facility] [address] [place] [address] GFR/1.73 sq M.predicted MDRD (S/P/Bld) [Vol rate/Area] mL/min/{1.73_m2} Normal >60 [facility] Comment on above: Result Comment: >60 mL/min/1.73m2 EGFR, calc. for ages 18 and older using the MDRD formula (not corrected for weight), is valid for stable renal function. Performed By: #### B MP #### [facility] [address] [place] [address] Glucose [Mass/Vol] 98 mg/dL Normal 70-99 [facility] Comment on above: Performed By: #### B MP #### [facility] [address] [place] [address] Potassium [Moles/Vol] 4.5 mmol/L Normal 3.4-4.9 [facility] Comment on above: Performed By: #### B MP #### [facility] [address] [place] [address] Sodium [Moles/Vol] 142 mmol/L Normal 135-144 [facility] Comment on above: Performed By: #### B MP #### [facility] [address] [place] [address] Urea nitrogen [Mass/Vol] 21 mg/dL Normal 8-23 [facility] Comment on above: Performed By: #### B MP #### [facility] [address] [place] [address] CBCOrdered By: Tone bo on 07-08-2019 Erythrocyte distribution width (RBC) [Ratio] 14.0 % 11.5 - 14.5 % [facility] Phone: Hematocrit (Bld) [Volume fraction] 42.1 % 42 - 52 % [facility] Phone: Hemoglobin (Bld) [Mass/Vol] 14.1 g/dL 14 - 18 g/dL [facility] Phone: MCH (RBC) [Entitic mass] 29.9 pg 27 - 31.3 pg [facility] Phone: MCHC 33.6 % 33 - 37 % [facility] Phone: MCV (RBC) [Entitic vol] 89.0 fL 80 - 100 fL [facility] Phone: Platelets (Bld) [#/Vol] 140 10*3/uL 130 - 400 K/uL [facility] Phone: RBC (Bld) [#/Vol] 4.73 10*6/uL [facility] Phone: WBC (Bld) [#/Vol] 5.7 10*3/uL 4.8 - 10.8 K/uL [facility] [employer] Work Phone: CBC With Platelet No Differe ntialon 07-08-2019 Erythrocyte distribution width (RBC) [Ratio] 14.0 % Normal 11.5-14.5 [facility] Comment on above: Performed By: #### C BCND #### [facility] [address] [place] [address] Hematocrit (Bld) [Volume fraction] 42.1 % Normal 42.0-52.0 [facility] Comment on above: Performed By: #### C BCND #### [facility] [address] [place] [address] Hemoglobin (Bld) [Mass/Vol] 14.1 g/dL Normal 14.0-18.0 [facility] Comment on above: Performed By: #### C BCND #### [facility] [address] [place] [address] MCH (RBC) [Entitic mass] 29.9 pg Normal 27.0-31.3 [facility] Comment on above: Performed By: #### C BCND #### [facility] [address] [place] [address] MCHC (RBC) [Mass/Vol] 33.6 % Normal 33.0-37.0 [facility] Comment on above: Performed By: #### C BCND #### [facility] [address] [place] [address] MCV (RBC) [Entitic vol] 89.0 fL Normal 80.0-100.0 [facility] Comment on above: Performed By: #### C BCND #### [facility] [address] [place] [address] Platelets (Bld) [#/Vol] 140 10*3/uL Normal 130-400 [facility] Comment on above: Performed By: #### C BCND #### [facility] [address] [place] [address] RBC (Bld) [#/Vol] 4.73 10*6/uL Normal 4.70-6.10 [facility] Comment on above: Performed By: #### C BCND #### [facility] [address] [place] [address] WBC (Bld) [#/Vol] 5.7 10*3/uL Normal 4.8-10.8 [facility] Comment on above: Performed By: #### C BCND #### [facility] [address] [place] [address] FLUORO FOR SURGICAL PROCEDUR ESon 07-08-2019 FLUORO [...] INR Coag (PPP) [Relative time] 1.1 {INR} [facility] Phone: Comment on above: Warfarin Therapy INR Therapeutic: 2.0-3.0 With Mechanical Valve: >2.5 Low-intensity Therapeutic Range: 1.5-2.0 Mod-intensity Therapeutic Range: 2.0-3.0 High-intensity Therapeutic Range: 2.5-3.5 HIgh-intensity Therapeutic Range: 3.0-4.0 Common Critical/Alarm Value: 5.0 Common Upper Limit Reported: 10.0 Effective 02/06/2019: Please note methodology and/or reference ranges have changed. PT Coag (PPP) [Time] 14.1 s [facility] Phone: Comment on above: Effective 02/06/19 Please [facility] [address] [place] [address] Prothrombin Timeon 9 INR Coag (PPP) [Relative [...] [facility] [address] [place] [address] PT Coag (PPP) [Time] 14.1 s Normal 12.3-14.9 [facility] Comment on above: Result Comment: Effe ctive 02/06/19 Please note methodology and/or reference ranges have changed. Performed By: #### P T #### [facility] [address] [place] [address] CHEST AND LATERALon 02-07-20 18 [facility] AND LATERAL [facility] [address] [place] [address] Patient Name: KEVIN GUEVARA : 1945Sex: MAge: Race: WhiteMRN: [id number]. Location: OUTPPatient Status: DVisit #: [id number] Date: 02/06/2018 7:00:00 AMCompleted Date: 02/06/2018 09:23 AMRequesting Provider: SARINA GUZMAN Attending Provider: SAM GERER Report Copy To: Signs & Symptoms: Post Pacemaker/AICD PlacementHistory: Patient history not availableComments: Check Pacemaker/AICD Lead Position, Chest X-ray PA \EANDE\ LAT in Dept ;DO NOT lift affected arm above shoulder. S/P pacemaker/ICD implant. Verify lead placementExam: CHEST AND LATERALAccession #: [id number] CHEST AND LATERAL 02/06/2018 9:23 AM EDT [...] atelectasis Electronically signed by:Florence Vinson. Transcribed by: [email or web address], User Resident: Electronically Signed by: FLORENCE VINSON @ 02/06/2018 02:44 PM Normal [facility] Comment on above: Order Comment: Check Pacemaker/AICD Lead Position, Chest X-ray PA \EANDE\ LAT in Dept ;DO NOT lift affected arm above shoulder. S/P pacemaker/ICD implant. Verify lead placement Cardiovascular Lab Reporton 02-06-2018 Cardiovascular Lab Report [facility] Patient Name: Kevin Guevara [facility] MR #: [id number] Physician: Sam MasonDepartment of Stiven GreerMedicine Service Date: 02/05/2018Division of Birthdate: 1945ardiology Room #: 3CD [id number] CardiovascularServicesUniversit y UwlznyhQqkbew[address] [facility].[place], [place] [address]Jqhvp Fax Cardiovascular Laboratory ReportINDICATION: Mr. Kevin Guevara is a 72-year-old gentleman, who I saw inthe [facility]. He sees Dr. Long. He was referred for a CRTDprocedure. He has ejection fraction of 20% to 25%, chronic low ejectionfraction as well, he has a left bundle-branch block with a QRS duration ofapproximately 170 milliseconds.I saw him in the [facility] office, went over the procedure, risks andbenefits [...] tethered with 0 silk.At that point, a 10-Setswana docking station was placed.A long sheath with [...] minutes of fluoroscopy. The device was a [id number], serial number [id number]. The atrial lead is a Medtronic [id number]. The ventricular lead is a Medtronic 6935 [id number]. The leftventricular lead is a Medtronic [id number], serial number [id number].Sensed P and R waves were 3.5 mV with the P waves 7 mV, the R-wave in theRV and 9.4, the LV impedance 627 ohms in the atrium 642, in the [id number] in the coronary sinus. Pacing threshold at [...] 02/05/2018/01:25 P/Sam Greer M.D.Date Trans: 02/06/2018 06:47 [id number]: Ren Marcial D.O. [address] [place], [place] [address] [address] [facility] Vital Signs Date Time Vital Sign Value Performing Clinician Lata pak 08-07-2019 16:25-0500 Diastolic blood pressure 78 mm[Hg] Jens Haines MD Work Phone: [employer] Work Phone: 08-07-2019 16:25-0500 Heart rate 78 /min Jens Haines MD Work Phone: [employer] Work Phone: 08-07-2019 16:25-0500 Respiratory rate 20 /min Jens Haines MD Work Phone: [employer] Work Phone: 08-07-2019 16:25-0500 SaO2% (BldA) [Mass fraction] 95 % Jens Haines MD Work Phone: [employer] Work Phone: 08-07-2019 16:25-0500 Systolic blood pressure 148 mm[Hg] Jens Haines MD Work Phone: [employer] Work Phone: 08-07-2019 10:51-0500 Body height 184.2 cm Jens Haines MD Work Phone: [employer] Work Phone: 08-07-2019 10:51-0500 Body mass index (BMI) [Ratio] 34.78 kg/m2 Jens Haines MD Work Phone: [employer] Work Phone: 08-07-2019 10:51-0500 Body temperature 97.59 [degF] Jens Haines MD Work Phone: [employer] Work Phone: 08-07-2019 10:51-0500 Body weight 117.94 kg Jens Haines MD Work Phone: [employer] Work Phone: 07-08-2019 15:25-0500 Body temperature 98.01 [degF] Jens Haines MD Work Phone: [employer] Work Phone: 07-08-2019 15:25-0500 Diastolic blood pressure 94 mm[Hg] Jens Haines MD Work Phone: [employer] Work Phone: 07-08-2019 15:25-0500 Heart rate 78 /min Jens Haines MD Work Phone: [employer] Work Phone: 07-08-2019 15:25-0500 Respiratory rate 16 /min Jens Haines MD Work Phone: [employer] Work Phone: 07-08-2019 15:25-0500 SaO2% (BldA) [Mass fraction] 97 % Jens Haines MD Work Phone: [employer] Work Phone: 07-08-2019 15:25-0500 Systolic blood pressure 158 mm[Hg] Jens Haines MD Work Phone: [employer] Work Phone: 07-08-2019 11:45-0500 Body height 182.9 cm Jens Haines MD Work Phone: [employer] Work Phone: 07-08-2019 11:45-0500 Body mass index (BMI) [Ratio] 35.26 kg/m2 Jens Haines MD Work Phone: [employer] Work Phone: 07-08-2019 11:45-0500 Body weight 117.94 kg Jens Haines MD Work Phone: [employer] Work Phone: Encounters Encounter Date Encounter Type Care Provider Facility Start: 03-05-2025 ambulatory EDUARD LEAL [facility] Start: 03-02-2025 End: 03-02-2025 ambulatory Gill Coronado MD Facility: [facility] Start: 02-17-2025 End: 02-17-2025 ambulatory [facility] Start: 01-26-2025 End: 01-26-2025 ambulatory Gill Coronado MD Facility: [facility] Start: 01-01-2025 End: 01-01-2025 ambulatory ARELIS [facility] Start: 12-25-2024 End: 12-25-2024 ambulatory [facility] Start: 12-09-2024 End: 12-09-2024 ambulatory [facility] Start: 12-01-2024 End: 12-31-2024 Pre-admission assessment [facility]ALES COREY [facility] Start: 11-20-2024 ambulatory [facility] Start: 10-28-2024 ambulatory [facility] Start: 10-28-2024 Encounter for preprocedural cardiovascular examination [facility] Start: 10-21-2024 ambulatory [facility] Start: 09-17-2024 ambulatory [facility] Start: 08-19-2024 ambulatory [facility] Start: 07-31-2024 ambulatory [facility] Start: 07-25-2024 ambulatory [facility] Start: 07-08-2024 End: 07-08-2024 ambulatory [facility] Start: 07-04-2024 ambulatory [facility] Start: 06-23-2024 ambulatory [facility] Start: 06-11-2024 ambulatory [facility] Start: 05-16-2024 ambulatory EDUARD LEAL [facility] Start: 05-08-2024 ambulatory [facility] Start: 01-22-2023 ambulatory Nino Romoi ty:[facility]ONEL[facility] Con[facility] Start: 07-25-2022 End: 07-26-2022 ambulatory CRISSY KINGSLEY Facility:[facility] Start: 07-13-2022 End: 07-14-[address] CASSANDRA LONG Facility:[facility] Start: 11-11-[address] CASSANDRA LONG Fac ility:[facility] Start: 11-08-2021 End: 11-09-[address] CASSANDRA LONG Facility:[facility] Start: 11-04-2021 End: 11-05-[address] CASSANDRA LONG Facility:[facility] Start: 10-04-2021 ambulatory Nino BAE Facility :[facility] Start: 10-04-2021 End: 10-05-2021 ambulatory Nino BAE Facility:[facility] Start: 09-30-2021 End: 10-01-[address] RANDALL HEARD JR Facility:[facility] Start: 08-07-2019 End: 08-07-2019 Patient encounter procedure [facility] Start: 08-07-2019 End: 08-07-2019 Subsequent hospital visit by physician Jens Haines MD Work Phone: [facility] Comment on above: Post-op pain (Primar y Dx) Start: 08-07-2019 End: 08-10-2019 Patient encounter procedure [facility] Start: 08-07-2019 End: 08-09-2019 Subsequent hospital visit by physician Jens Haines MD Work Phone: [facility] Comment on above: Pain Start: 07-08-2019 End: 07-08-2019 Patient encounter procedure JENS HAINES [facility] Start: 07-08-2019 End: 07-08-2019 Subsequent hospital visit by physician Jens Haines MD Work Phone: [facility] Start: 07-08-2019 End: 07-11-2019 Patient encounter procedure JENS HAINES [facility] Start: 02-05-2018 End: 02-06-2018 Patient encounter SAM GREER Facility:[facility] Start: 01-11-2018 End: 01-12-2018 Patient encounter PROVIDER UNKNOWN Facility:[facility] Start: 01-10-2018 End: 01-11-2018 Patient encounter DEFAULT PHYSICIAN Facility:[facility] Procedures Date Procedure Procedure Detail Performing Clinician Start: 09-30-[address] CASSANDRA LONG Comment on above: Performed By: #### P SAD #### [facility] [address] [place] [address] Dr. Javy Brian Start: 08-07-2019 INCENTIVE SPIROMETRY RT JENS YANCY Start: 08-07-2019 DISCHARGE PATIENT JENS YO O Start: 08-07-2019 FLUORO FOR SURGICAL PROCEDURES JENS YANCY Start: 08-07-2019 INCENTIVE SPIROMETRY RT JENS YANCY Start: 08-07-2019 FLUORO FOR SURGICAL PROCEDURES Jens Haines MD Work Phone: Start: 08-07-2019 INCENTIVE SPIROMETRY RT JENS YANCY Start: 08-07-2019 Continuous pulse oximetry JENS YANCY Start: 08-07-2019 ASSESS JENS YANCY Start: 08-07-2019 BEDREST JENS YANCY Start: 08-07-2019 ENCOURAGE DEEP BREAT BHAVNA AND COUGHING JENS YANCY Start: 08-07-2019 INCENTIVE SPIROMETRY RT JENS YANCY Start: 08-07-2019 NEURO/VASCULAR CHECKS B O YANCY Start: 08-07-2019 NURSING COMMUNICATION B O YANCY Start: 08-07-2019 INITIATE OXYGEN THER APY PROTOCOL JENS YANCY Start: 08-07-2019 NOTIFY PHYSICIAN (SPECIFY) JENS YANCY Start: 08-07-2019 PULSE OXIMETRY SPOT CHECK JENS YANCY Start: 08-07-2019 VITAL SIGNS JENS YANCY Start: 07-08-2019 DISCHARGE PATIENT JENS YO O Start: 07-08-2019 FLUORO FOR SURGICAL PROCEDURES JENS YANCY Start: 07-08-2019 INCENTIVE SPIROMETRY RT JENS YANCY Start: 07-08-2019 Blood count complete automated JENS YANCY Start: 07-08-2019 Basic metabolic pane l calcium total JENS YANCY Start: 07-08-2019 Prothrombin time JENS YANCY Start: 07-08-2019 Thromboplastin time partial plasma/whole blood JENS YANCY Start: 07-08-2019 Continuous pulse oximetry JENS YANCY Start: 07-08-2019 ASSESS JENS YANCY Start: 07-08-2019 BEDREST JENS YANCY Start: 07-08-2019 ENCOURAGE DEEP BREAT BHAVNA AND COUGHING JENS YANCY Start: 07-08-2019 INCENTIVE SPIROMETRY RT JENS YANCY Start: 07-08-2019 NEURO/VASCULAR CHECKS B O YANCY Start: 07-08-2019 NURSING COMMUNICATION B O YANCY Start: 07-08-2019 Ecg routine ecg w/le ast 12 lds w/i&r JENS YANCY Start: 07-08-2019 INITIATE OXYGEN THER APY PROTOCOL JENS YANCY Start: 07-08-2019 NOTIFY PHYSICIAN (SPECIFY) JENS YANCY Start: 07-08-2019 PULSE OXIMETRY SPOT CHECK JENS YANCY Start: 07-08-2019 VITAL SIGNS JENS YANCY Start: 07-08-2019 End: 07-08-2019 Basic metabolic [...] lithotripsy of calculus of kidney MRS. MORALES LAZARTZ Start: 12-30-2015 Left Thumb cyst excision MRS. [...] Patient encounter procedure 08/22/2019 Office Visit Neurosurgery Jens Haines MD [address] [facility], [address] [id number] [employer] Start: 07-11-2019 End: 07-11-2019 Patient encounter procedure 07/11/2019 Office Visit Neurosurgery Jens Haines MD [address] [facility], [address] [id number] [employer] Start: 03-30-2019 Influenza vaccination Flu vaccine (# 1) [facility] Phone: Start: 01-19-2019 Annual Wellness Visi t (AWV) Annual Wellness Visit (AWV) [facility] Phone: Start: 2011 Pneumococcal 65+ yea rs Vaccine (1 of 1 - PPSV23) Pneumococcal 65+ years Vaccine (1 of 1 - PPSV23) [facility] Phone: Start: 02-28-1996 Colon cancer screen colonoscopy Colon cancer screen colonoscopy [facility] Phone: Start: 02-28-1996 Shingles Vaccine (1 of 2) Lester gles Vaccine (1 of 2) [facility] Phone: Start: 1986 Lipid screen Lipid screen [employer] [facility] Work Phone: Start: 1957 DTaP/Tdap/Td vaccine (1 - Tdap) DTaP/Tdap/Td vaccine (1 - Tdap) [facility] Phone: Start: 1945 Hepatitis C screen Hepatitis C scree n [facility] Phone: EKG 12 Lead EKG 12 Lead ECG Routine 07/08/2019 12:00 PM EST [facility] Phone: [facility] Work Phone: Comment on above: Every 2hr while awak e until discontinued starting 07/08/2019 Every 2hr while awak e until discontinued starting 08/07/2019 Initiate Oxygen Ther apy Protocol [employer] Phone: Comment on above: Daily until disconti nued starting 07/08/2019 Daily until disconti nued starting 08/07/2019 Phase I & II - meter ed glucose [facility] Phone: Comment on above: As Needed until disc ontinued starting 07/08/2019 As Needed until disc ontinued starting 08/07/2019 End: 07-08-2019 Pulse Oximetry Spot Check Pulse Oximetry Spot Check Respiratory Care Routine One Time for 1 Occurrences starting 07/08/2019 until 07/08/2019 [facility] Phone: Comment on above: One Time for 1 Occur rences starting 07/08/2019 until 07/08/2019 End: 08-07-2019 Pulse Oximetry Spot Check Pulse Oximetry Spot Check Respiratory Care Routine One Time for 1 Occurrences starting 08/07/2019 until 08/07/2019 [employer] Phone: Comment on above: One Time for 1 Occur rences starting 08/07/2019 until 08/07/2019 Payers Date Payer Category Payer Unknown 2017 Medicare MEDICARE MEDICAR E PART A AND B xxxxxxxxxxx 2017-Present [phone] [address] [address] [place] [address] xxxxxxxxxxx [id number] 2017 Unknown [employer] M [employer] [address] xxxxxxxxxxxx 2017-Present [phone] [address] [place] [address] xxxxxxxxxxxx [id number] 2017 Medicare [id number] 1959 Medicare [id number] 1959 Self-pay 1959 Unknown [id number] 1945 Unknown [id number] [id number] .182 1945 Unknown [id number] 2.16.840.1.971984.3.579.2 .182 1945 Unknown [id number] 2.16.840.1.829760.3.579.2 .182 1945 Unknown [id number] 2.16.840.1.357533.3.579.2 .182 1946 Unknown [id number] 2.16.840.1.884507.3.579.2 .593 1945 Unknown [id number] 2.16.840.1.292845.3.579.2 .593 1946 Unknown [id number] 2.16.840.1.033500.3.579.2 .593 1946 Unknown [id number] 2.16.840.1.655125.3.579.2 .593 1946 Unknown [id number] 2.16.840.1.284646.3.579.2 .593 1946 Unknown [id number] 2.16.840.1.253647.3.579.2 .593 1946 Unknown [id number] 2.16.840.1.293803.3.579.2 .727 1945 Unknown [id number] 2.16.840.1.105446.3.579.2 .727 1945 Unknown [id number] 2.16.840.1.249577.3.579.2 .196 1945 Unknown [id number] 2.16.840.1.615827.3.579.2 .196 Medicare [id number] Private Health Insurance [id number] Social History Date Type Detail Facility Start: 07-07-2019 End: 08-08-2019 Tobacco smoking status NHIS Never smoker [employer] Phone: Start: 07-07-2019 End: 08-08-2019 Alcohol intake Current non-drinker of alcohol (finding) [facility] Phone: Sex Assigned At Not on file [facility] Phone: Start: 12-28-2015 Tobacco smoking status Ex-smoker (fi nding) [facility] Comment on above: 40 years ago Sexual Orientation [facility] Sex Assigned At Male [facility] Start: 12-09-2015 Sex Male (finding) [facility] Medical Equipment Procedure Code Equipment Code Equipment Origin al Text Equipment Identifier Dates Lead Trial Compc t Perc 1x8 [id number] Start: 07-08-2019 Stimulator Intel lis Adaptive Stim Mri - [id number] Start: 08-07-2019 Lead Pain 1x8 60 cm Vectris [id number] Start: 08-07-2019 Lead Pain 1x8 60 cm Marjorie [id number] Start: 08-07-2019 Clinical Notes 07-08-2019 to 01-01-2025 Alexandra Cody RN - 08/07/2019 4:19 PM Oralia Nolasco RN - 07/08/2019 3:27 PM Oralia Smith RN - 07/08/2019 3:08 PM Fouzia Talbert RN - 07/07/2019 2:25 PM EST Note Date & Type Note Facility 01-01-2025 Note [place] Cardiology - [facility] Patient in clinic today [...] in clinic in 2-3 months. Arelis Ridley APRN-[facility] Cardiovascular [place] (more content not included)... [facility] 01-01-2025 Note Patient is here toda y in office for a wound check. S/P generator change on 12/25/2024 Patient denies fever or chills, small amount of pain 1/10 occasionally, Redness noted around Tegaderm. Small amount of discharge noted on bandage. Review of Systems Constitutional: Negative. [facility] 12-25-2024 Note BiV-ICD GENERATOR RE PLACEMENT PROCEDURE [...] weeks. 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 Use of blood products discussed with patient who. Additional Equipment Requests [facility] 12-25-2024 Note This report has been cancelled. [facility] 12-09-2024 Note [place] [facility] Note [facility] Reason for follow-up: BiV ICD HPI: Kevin Guevara is a 79 y.o. year old [...] 1.[address] ------- Previous H[address] Long 11/04/2021: Kevin Guevara is seen in follow up on NICM, SHF, s/p BiV/ICD. Visit of 01/14/2018: Kevin Guevara is seen in follow up after recent admission to [facility] when he developed hypotension after GA for urologic surgery. 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 He had a recent stress test at Dr Marcial's office which was negative. He has been maintained on coreg and Entresto maximum dosage for >4 months now. On his recent echocardiogram at [facility] there was reduced EF 30% and possible apical thrombus. A follow up echocardiogram with [facility] on [...] Date BACK SURGERY (more content not included)... [facility] 11-21-2024 Note Copy of Medtronic Op tiVol report 11/17/24 Margie Stack PA-C [facility] Cardiovascular Medicine [phone] [facility] 11-21-2024 Note Provider called pt a nd son today for concerns of worsening heart failure index noted on device interrogation. Pt states that he feels well, denied any water retention, leg edema, or weight gain. Denied worsening SOB or orthopnea. States he has actually lost about 20-30 pounds on purpose, and remains fairly active. Therefore, message sent to [facility] staff, Dr Long and Dr Rey with update of pt status, device at 3 month battery life and to monitor for upcoming device exchange for battery. Pt voiced understanding of red flag symptoms to call cardiology for- increased SOB, Orthopnea, weight gain, fatigue, or water retention. [facility] Cardiology Available 7a-3pm via [employer] [phone] [facility] 08-07-2019 History of Present illness Narrative disch inst and 2 presc given and explained to pt and son documented in this encounter [employer] Phone: 08-07-2019 Hospital Discharge instructions Alexandra Cody RN - 08/07/2019 Ice packs to the incision Shower on Sunday documented in this encounter [employer] Phone: 07-08-2019 History of Present illness Narrative [...] notified of above. documented in this encounter [employer] Phone: 07-08-2019 Hospital Discharge instructions Oralia Griffin RN - 07/08/2019 May shower and ambulate. Follow instructions of [employer] documented in this encounter [employer] Phone: Evaluation + Plan note No data available for this section [facility] Evaluation note Diagnosis Post-op pain- Primary Other acute postoperative pain documented in this encounter [employer] Phone: evaluation note* Diagnosis Pain Generalized pain documented in this encounter [employer] Phone: Hospital Discharge instructions No data available for this section [facility] Progress note No data available for this section [facility] Summary Purpose Family History No Family History Records FoundNo Family History Records FoundNo Family History Records FoundNo Family History Records Found No data available for this section No Family History Records FoundNo Family History Records Found Advance Directives No Advanced Directives Records FoundDocuments on File Type Date 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 and 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 Will 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 Reason for Referral Status Reason Specialty Diagnoses / Procedures Referred By Contact Referred To Contact Pending Review Radiology Diagnoses Pain Procedures Fluoro For Surgical Procedures Jens Haines MD [address] [facility], [address] [place] [address] Additional Source Comments (unrecognized sect ion and content) No Status Records FoundNo Status Records FoundNo Status Records FoundNo Status Records FoundNo Status Records FoundNo Status Records Found INFORMATION SOURCE (unrecogn ized section and content) DATE CREATED AUTHOR 02/12/2018 [facility] DATE CREATED AUTHOR AUTHOR'S ORGANIZ ATION 08/09/2019 [facility] DATE CREATED AUTHOR AUTHOR'S ORGANIZ ATION 07/28/[address] [facility] DATE CREATED AUTHOR AUTHOR'S ORGANIZ ATION 09/22/2022 [facility] DATE CREATED AUTHOR AUTHOR'S ORGANIZ ATION 03/08/2025 [facility] DATE CREATED AUTHOR AUTHOR'S ORGANIZ ATION 03/13/2025 [facility] Reason for Visit (unrecogniz ed section and content) Status Reason Specialty Diagnoses / Procedures Referre d By Contact Referred To Contact Diagnoses RADICULOPATHY, STENOSIS, SPONDYLOSIS Procedures CO NJX DX/THER SBST INTRLMNR CRV/THRC W/IMG GDN D.C.S. (DORSAL COLUMN STIMULATOR) TRIAL 1 HOUR/ 1 C-ARM/ [facility] [employer] (PAT SAME DAY OF SURGERY) Jens Haines MD [address] [facility] [employer], [address] [place] [address] [facility] Status Reason Specialty Diagnoses / Procedures Referre d By Contact Referred To Contact Diagnoses Cervical spondylosis with myelopathy and radiculopathy RADICULOPATHY SPONDYLOSIS Procedures CO IMPLANT NEUROSTIM/ORACLE ADF CONSULTANT PERMANENT DCS (DORSAL COLUMN STIMULATOR)PLACEMENT, 1 HOUR/ 1 C-ARM/ [employer] ZOE CASON, *NEED MAGNET FOR PACEMAKER, PAT COMPLETED 07/08/19 Jens Haines MD [address], [address] [place] [address] [facility] Patient Care team informatio n (unrecognized section and content) Personnel Name: REN MARCIAL JR, DO Address: [address] [place] [id number] [employer]: FOR RECORDS PERTAINING TO PATIENTS WHO [...] BE BASED ON THE PRIMARY CLINICAL RECORDS. [employer] provides no warranty or guarantee of the accuracy or completeness of information in this document.
[2025-03-16 07:32] VITALS: BP 130/83; PULSE 72; TEMP 36.2; O2SAT 97
[2025-03-16 08:19] VITALS: BP 132/71; BP 134/74; PULSE 70; PULSE 72; O2SAT 96; O2SAT 98
[2025-03-16] MEDS: LIDOCAINE HCL 2% 400 MG/20 ML MDV INJ (08:22)
[2025-03-16] MEDS: BUPIVACAINE HCL 0.25% PF 25 MG/10 ML VIAL 8 ML INJ (08:22)
--- NOTE | 2025-03-16 08:24 | W.PM.PROCNOT ---
Date of procedure: 03/16/25 Pre-op diagnosis: Pain due to lumbar spondylosis without myelopathy Post-op diagnosis: same as pre-op Procedure: Procedure: Bilateral L1-2, 2-3 medial branch block Medications: Bupivacaine 0.25% 6cc The patient was seen and examined in the preoperative holding area.? An informed consent was obtained and placed on the chart.? The patient was brought to the medical procedure unit and placed in the prone position.? A timeout was completed verifying correct patient, procedure site, positioning, plan, and special equipment.? Using aseptic technique, the needle was placed at left L1. Under direct fluoroscopic visualization a Quincke-tipped spinal needle was advanced to the junction of the superior articulating process with the transverse process at the designated medial branch segment.? Preceded by negative aspiration, the above-mentioned injectate was placed in 1 mL aliquots.? The procedure was repeated at left L2, 3.? The needle was removed and insertion site was covered. The same procedure, at the same levels, was completed on the right side. The patient was taken to the postprocedural recovery area and monitored for an appropriate length of time before found suitable for discharge in the company of a responsible adult. Anesthesia: Local Surgeon: Gill Coronado Pathology: none sent Condition: stable Disposition: no change
== END 2025-03-16 08:32 | disposition home or self-care (01) ==
PROVIDERS: PCP Internal Medicine; Visit Provider Anesthesiology
DX: M47.816 Spondylosis without myelopathy or radiculopathy, lumbar region (principal); M54.50 Low back pain, unspecified
CPT/HCPCS: 64493; 64494; J0665

== ENCOUNTER 2025-03-19 07:44 | Outpatient (OUT) | payer MEDICARE, OTHER, SELFPAY ==
--- OUTSIDE RECORDS SUMMARY | 2025-03-19 07:49 | XMS_ITS | CCD ---
Author Organization [facility] Care Team Providers Care Tugboat Engineer Name Role Phone PHYSICIAN, DEFAULT Unavailable Unavailable PHYSICIAN, DEFAULT Unavailable Unavailable REN MARCIAL Unavailable Unavailable UNKNOWN, PROVIDER Unavailable Unavailable UNKNOWN, PROVIDER Unavailable Unavailable REN MARCIAL Unavailable Unavailable VALYOON, REN Unavailable Unavailable SAM GREER Unavailable Unavailable [...] Ren DE LA GARZA Primary Care Provider [phone] ETHAN, DR TRUJILLO Admitting Unavailable MOUKAGUERA, DR [...] sources) tamsulosin Drug Allergy 06-30-2016 [facility] Repository (1 source) NO KNOWN DRUG ALLERGIES Drug allergy (disorder) 06-09-[address] [facility] Repository (3 sources) tamsulosin Drug Allergy 07-07-2019 [facility] (3 sources) tamsulosin; Translations: [tamsulosin] Drug Allergy 02-03-2015 [facility] Repository Medications Current Medications Medication Drug Class(es) Dates Sig (Normalized) Sig (Original) Acetaminophen / HYDROcodone (3 sources) Opioid Agonist Start: 08-07-2019 End: 08-07-2019 HYDROcodone-acetam inophen (NORCO) 5-325 MG per tablet 1 tablet Start: 07-08-2019 End: 07-08-2019 HYDROcodone-acetaminophen (N ORCO) 5-325 MG per tablet 1 tablet Start: 12-30-2015 Alexander 325 mg-5 mg oral tablet 1 tab(s), [...] Onset: 02-05-2018 Chronic Other aftercare (1 source) 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 HPon 12-25-2024 [facility] Cardiology Note [facility] Reason for follow-up: BiV ICD HPI: [...] in follow up after recent admission to [facility] when he developed hypotension after [place] [...] months now. On his recent echocardiogram at [facility] there was reduced EF 30% and [...] BACK SURGERY (more content not included)... Normal [facility] Ronnell 12-25-2024 NURSNOTE RN educated pt [...] off of unit with all of belongings. [facility] NURSNOTE CHG wipes and betadi ne nasal swabs completed. [facility] Orders Onlyon 12-25-2024 Orders Only [id number] Jose Guevara 1945 Date Provider Department Center 12/25/2024 REINA FRAZIER [facility] Family History Problem Relation Age of Onset Stroke Father Family Status - Relation Status Age at Mother Father Brother Alive [facility] Orders Onlyon 12-17-2024 Orders Only [id number] Jose Guevara 1945 Date Provider Department Center 12/17/2024 JOSE ANGEL ABRAMS [facility] Family History Problem Relation Age of Onset Stroke Father Family Status - Relation Status Age at Mother Father Brother Alive [facility] Office Visiton 12-09-2024 Follow-up visit [id number] Jose Guevara 1945 Date Provider Department Center 12/09/2024 JOSE ANGEL ABRAMS [facility]ARD [facility] Family History Problem Relation Age of Onset Stroke Father Family Status - Relation Status Age at Mother Father Brother Alive Level of Service:47480 [place] OFFICE/OUTPATIENT [facility] 60 MINUTES [facility] Documentationon 11-21-2024 Documentation [id number] Jose Guevara 1945 Date Provider Department Center 11/21/2024 JIA LEON [facility] Family History Problem Relation Age of Onset Stroke Father Family Status - Relation Status Age at Father Reason for Visit and Comments: Congestive Heart Failure [127] Normal [facility] Orders Onlyon 11-17-2024 Orders Only [id number] GuevaraJose elham Sherman 1945 M Date Provider Department Center 11/17/2024 AGUEDA STARKEY [facility] Family History Problem Relation Age of Onset Stroke Father Family Status - Relation Status Age at Father Normal [facility] PROF CHEM 8 (BAS METB)on Anion gap [Moles/Vol] 9.4 mmol/L Normal [facility] Comment on above: Performed By: #### B MP #### [facility] [address] [address] [address] Javy Brian Calcium [Mass/Vol] 9.7 mg/dL Normal 8.5-10.1 [facility] Comment on above: Performed By: #### B MP #### [facility] [address] [address] [address] Javy Brian Chloride [Moles/Vol] 106 mmol/L Normal 98-107 [facility] Comment on above: Performed By: #### B MP #### [facility] [address] [address] [address] Javy Brian CO2 [Moles/Vol] 30.4 mmol/L Normal 21.0-32.0 [facility] Comment on above: Performed By: #### B MP #### [facility] [address] [address] [address] Javy Brian Creatinine [Mass/Vol] 1.46 mg/dL Critically high 0.70-1.30 [facility] Comment on above: Performed By: #### B MP #### [facility] [address] [address] [address] Javy Brian EGFR-AF GIBRALTARIAN 57 mL/min/1.73m2 Critically low >=60 [facility] Comment on above: Performed By: #### B MP #### [facility] [address] [address] [address] Javy Brian EGFR-NON AF GIBRALTARIAN 47 mL/min/1.73m2 Critically low >=60 [facility] Comment on above: Performed By: #### B MP #### [facility] [address] [address] [address] Javy Brian Glucose [Mass/Vol] 99 mg/dL Normal 74-106 [facility] Comment on above: Performed By: #### B MP #### [facility] [address] [address] [address] Javy Brian Potassium [Moles/Vol] 4.8 mmol/L Normal 3.5-5.1 [facility] Comment on above: Performed By: #### B MP #### [facility] [address] [address] [address] Javy Brian Sodium [Moles/Vol] 141 mmol/L Normal 136-145 [facility] Comment on above: Performed By: #### B MP #### [facility] [address] [address] [address] Javy Brian Urea nitrogen [Mass/Vol] 23.0 mg/dL Critically high 7.0-18.0 [facility] Comment on above: Performed By: #### B MP #### [facility] [address] [address] [address] Javy Brian Urea nitrogen/Creatinin e [Mass ratio] 15.8 mg/mg Normal [facility] Comment on above: Performed By: #### B MP #### [facility] [address] [address] [address] Javy Brian PROF CHEM 8 (BAS METB)on Anion gap [Moles/Vol] 10.7 mmol/L Normal [facility] Comment on above: Performed By: #### B MP #### [facility] [address] [address] [address] Javy Brian Calcium [Mass/Vol] 9.7 mg/dL Normal 8.5-10.1 [facility] Comment on above: Performed By: #### B MP #### [facility] [address] [address] [address] Javy Brian Chloride [Moles/Vol] 106 mmol/L Normal 98-107 [facility] Comment on above: Performed By: #### B MP #### [facility] [address] [address] [address] Javy Brian CO2 [Moles/Vol] 29.5 mmol/L Normal 21.0-32.0 [facility] Comment on above: Performed By: #### B MP #### [facility] [address] [address] [address] Javy Brian Creatinine [Mass/Vol] 1.79 mg/dL Critically high 0.70-1.30 [facility] Comment on above: Performed By: #### B MP #### [facility] [address] [address] [address] Javy Brian EGFR-AF GIBRALTARIAN 45 mL/min/1.73m2 Critically low >=60 [facility] Comment on above: Performed By: #### B MP #### [facility] [address] [address] [address] Javy Brian EGFR-NON AF GIBRALTARIAN 37 mL/min/1.73m2 Critically low >=60 [facility] Comment on above: Performed By: #### B MP #### [facility] [address] [address] [address] Javy Brian Glucose [Mass/Vol] 94 mg/dL Normal 74-106 [facility] Comment on above: Performed By: #### B MP #### [facility] [address] [address] [address] Javy Brian Potassium [Moles/Vol] 5.2 mmol/L Critically high 3.5-5.1 [facility] Comment on above: Performed By: #### B MP #### [facility] [address] [address] [address] Javy Brian Sodium [Moles/Vol] 141 mmol/L Normal 136-145 [facility] Comment on above: Performed By: #### B MP #### [facility] [address] [address] [address] Javy Brian Urea nitrogen [Mass/Vol] 34.0 mg/dL Critically high 7.0-18.0 [facility] Comment on above: Performed By: #### B MP #### [facility] [address] [address] [address] Javy Brian Urea nitrogen/Creatinin e [Mass ratio] 19.0 mg/mg Normal [facility] Comment on above: Performed By: #### B MP #### [facility] [address] [address] [address] Javy Brian PROF CHEM 8 (BAS METB)on Anion gap [Moles/Vol] 12.0 mmol/L Normal [facility] Comment on above: Performed By: #### B MP #### [facility] [address] [address] [address] Javy Brian Calcium [Mass/Vol] 8.9 mg/dL Normal 8.5-10.1 [facility] Comment on above: Performed By: #### B MP #### [facility] [address] [place] [address] Dr. Javy Brian Chloride [Moles/Vol] 109 mmol/L Critically high 98-107 [facility] Comment on above: Performed By: #### B MP #### [facility] [address] [address] [address] Javy Brian CO2 [Moles/Vol] 29.0 mmol/L Normal 22.0-30.0 [facility] Comment on above: Performed By: #### B MP #### [facility] [address] [address] [address] Javy Brian Creatinine [Mass/Vol] 1.79 mg/dL Critically high 0.66-1.25 [facility] Comment on above: Performed By: #### B MP #### [facility] [address] [address] [address] Javy Brian EGFR-AF GIBRALTARIAN 45 mL/min/1.73m2 Critically low >=60 [facility] Comment on above: Performed By: #### B MP #### [facility] [address] [address] [address] Javy Brian EGFR-NON AF GIBRALTARIAN 37 mL/min/1.73m2 Critically low >=60 [facility] Comment on above: Performed By: #### B MP #### [facility] [address] [address] [address] Javy Brian Glucose [Mass/Vol] 92 mg/dL Normal 74-106 [facility] Comment on above: Performed By: #### B MP #### [facility] [address] [place] [address] Dr. Javy Brian Potassium [Moles/Vol] 5.0 mmol/L Normal 3.4-5.0 [facility] Comment on above: Performed By: #### B MP #### [facility] [address] [place] [address] Dr. Javy Brian Sodium [Moles/Vol] 145 mmol/L Normal 137-145 [facility] Comment on above: Performed By: #### B MP #### [facility] [address] [place] [address] Dr. Javy Brian Urea nitrogen [Mass/Vol] 35.0 mg/dL Critically high 7.0-18.0 [facility] Comment on above: Performed By: #### B MP #### [facility] [address] [place] [address] Dr. Javy Brian Urea nitrogen/Creatinin e [Mass ratio] 19.6 mg/mg Normal [facility] Comment on above: Performed By: #### B MP #### [facility] [address] [place] [address] Dr. Javy Brian CBC AUTO DIFFon 11-04-2021 BASO # 0.0 103/ul Normal 0.0-0.1 [facility] Comment on above: Performed By: #### C BC #### [facility] [address] [place] [address] Dr. Javy Brian Basophils/100 WBC (Bld) 0.7 % Normal 0.2-2.0 [facility] Comment on above: Performed By: #### C BC #### [facility] [address] [place] [address] Dr. Javy Brian EO # 0.2 103/ul Normal 0.0-0.7 [facility] Comment on above: Performed By: #### C BC #### [facility] [address] [place] [address] Dr. Javy Brian Eosinophils/100 WBC (Bld) 3.1 % Normal 0.9-7.0 [facility] Comment on above: Performed By: #### C BC #### [facility] [address] [place] [address] Dr. Javy Brian Erythrocyte distribution width (RBC) [Ratio] 14.3 % Normal 11.0-15.0 [facility] Comment on above: Performed By: #### C BC #### [facility] [address] [place] [address] Dr. Javy Brian Hematocrit (Bld) [Volume fraction] 43.5 % Normal 42.0-54.0 [facility] Comment on above: Performed By: #### C BC #### [facility] [address] [place] [address] Dr. Javy Brian Hemoglobin (Bld) [Mass/Vol] 13.7 g/dL Critically low 14.0-18.0 [facility] Comment on above: Performed By: #### C BC #### [facility] [address] [place] [address] Dr. Javy Brian IG # 0.01 10e3/ul Normal 0.00-0.03 [facility] Comment on above: Performed By: #### C BC #### [facility] [address] [place] [address] Dr. Javy Brian IG % 0.2 % Normal 0.0-0.5 [facility] Comment on above: Performed By: #### C BC #### [facility] [address] [place] [address] Dr. Javy Brian LYMPH # 1.4 103/ul Normal 1.2-3.8 [facility] Comment on above: Performed By: #### C BC #### [facility] [address] [place] [address] Dr. Javy Brian Lymphocytes/100 WBC (Bld) 23.6 % Normal 20.5-60.0 [facility] Comment on above: Performed By: #### C BC #### [facility] [address] [place] [address] Dr. Javy Brian MANUAL DIFF REQ NO Normal [facility] Comment on above: Performed By: #### C BC #### [facility] [address] [place] [address] Dr. Javy Brian MCH (RBC) [Entitic mass] 29.0 pg Normal 25.9-34.0 [facility] Comment on above: Performed By: #### C BC #### [facility] [address] [place] [address] Dr. Javy Brian MCHC (RBC) [Mass/Vol] 31.5 g/dL Normal 29.9-35.2 [facility] Comment on above: Performed By: #### C BC #### [facility] [address] [place] [address] Dr. Javy Brian MCV (RBC) [Entitic vol] 92.0 fL Normal 80.0-94.0 [facility] Comment on above: Performed By: #### C BC #### [facility] [address] [place] [address] Dr. Javy Brian MONO # 0.8 103/ul Normal 0.3-0.8 [facility] Comment on above: Performed By: #### C BC #### [facility] [address] [place] [address] Dr. Javy Brian Monocytes/100 WBC (Bld) 14.1 % Critically high 1.7-12.0 [facility] Comment on above: Performed By: #### C BC #### [facility] [address] [place] [address] Dr. Javy Brian NEUT # 3.4 103/ul Normal 1.4-6.5 [facility] Comment on above: Performed By: #### C BC #### [facility] [address] [place] [address] Dr. Javy Brian Neutrophils/100 WBC (Bld) 58.3 % Normal 43.0-75.0 [facility] Comment on above: Performed By: #### C BC #### [facility] [address] [address] [address] Javy Brian Platelet mean volume (Bld) [Entitic vol] 9.7 fL Normal 9.5-13.5 [facility] Comment on above: Performed By: #### C BC #### [facility] [address] [address] [address] Javy Brian PLT 113 103/ul Critically low 150-450 [facility] Comment on above: Performed By: #### C BC #### [facility] [address] [address] [address] Javy Brian RBC 4.73 106/ul Normal 4.70-6.10 [facility] Comment on above: Performed By: #### C BC #### [facility] [address] [place] [address] Dr. Javy Brian WBC 5.8 103/ul Normal 4.0-11.0 [facility] Comment on above: Performed By: #### C BC #### [facility] [address] [address] [address] Javy Brian PROF CHEM 8 (BAS METB)on Anion gap [Moles/Vol] 13.2 mmol/L Normal [facility] Comment on above: Performed By: #### B MP #### [facility] [address] [place] [address] Dr. Javy Brian Calcium [Mass/Vol] 9.1 mg/dL Normal 8.5-10.1 [facility] Comment on above: Performed By: #### B MP #### [facility] [address] [place] [address] Dr. Javy Brian Chloride [Moles/Vol] 110 mmol/L Critically high 98-107 [facility] Comment on above: Performed By: #### B MP #### [facility] [address] [place] [address] Dr. Javy Brian CO2 [Moles/Vol] 27.6 mmol/L Normal 22.0-30.0 [facility] Comment on above: Performed By: #### B MP #### [facility] [address] [address] [address] Javy Brian Creatinine [Mass/Vol] 1.61 mg/dL Critically high 0.66-1.25 [facility] Comment on above: Performed By: #### B MP #### [facility] [address] [address] [address] Javy Brian EGFR-AF GIBRALTARIAN 51 mL/min/1.73m2 Critically low >=60 [facility] Comment on above: Performed By: #### B MP #### [facility] [address] [address] [address] Javy Brian EGFR-NON AF GIBRALTARIAN 42 mL/min/1.73m2 Critically low >=60 [facility] Comment on above: Performed By: #### B MP #### [facility] [address] [place] [address] Dr. Javy Brian Glucose [Mass/Vol] 94 mg/dL Normal 74-106 [facility] Comment on above: Performed By: #### B MP #### [facility] [address] [place] [address] Dr. Javy Brian Potassium [Moles/Vol] 5.8 mmol/L Critically high 3.4-5.0 [facility] Comment on above: Performed By: #### B MP #### [facility] [address] [place] [address] Dr. Javy Brian Sodium [Moles/Vol] 145 mmol/L Normal 137-145 [facility] Comment on above: Performed By: #### B MP #### [facility] [address] [address] [address] Javy Brian Urea nitrogen [Mass/Vol] 27.0 mg/dL Critically high 7.0-18.0 [facility] Comment on above: Performed By: #### B MP #### [facility] [address] [place] [address] Dr. Javy Brian Urea nitrogen/Creatinin e [Mass ratio] 16.8 mg/mg Normal [facility] Comment on above: Performed By: #### B MP #### [facility] [address] [address] [address] Javy Brian Ambulatory Visit Summaryon 0 10-04-2021 Ambulatory Visit Summary KEVIN GUEVARA :1945 Visit Date:10/04/2021 Ambulatory Visit Instructions Your Diagnosis BPH with urinary obstruction Personal history of kidney stones Tests Performed Urnls Dip Stick Auto w/o Microscopy POC 00455 Your Care Team Attending Physician - Randall Heard Jr., MD Primary Care Physician - REN MARCIAL JR, DO This Is Your Medications List Contact prescribing physician if questions or concerns acetaminophen-hydrocodone (Alexander 325 mg-5 mg oral tablet) allopurinol (allopurinol [...] Heard Jr., MD Where: [facility] Patient Educationon 10-05-19 Patient Education [...] Follow these instructions at home: ? Take [id number] and prescription medicines only as told by [...] d (more content not included)... Normal [facility] Urology Office/Clinic Noteon 10-04-2021 Urology Office/Clinic Note [...] Urnls Dip Stick Auto w/o Microscopy POC 04820 2. Personal history of kidney stones (Z87.442: [...] Tab, 12.5 (more content not included)... Normal [facility] Comment on above: Result Comment: Elec tronically Signed By: Félix Carter MD, Randall Espino\.br\Date and Time Signed: 10/04/21 11:52 EST\.br\Electronically Co-Signed By: Shakira Emery MA\.br\Date and Time Co-Signed: 10/04/21 11:49 EST Lab Reportson 10-03-2021 Lab Reports [id number] Normal [facility] Fluoro For Surgical Procedur esOrdered By: Jens Haines on 08-08-2019 Impression: Fluorosc opic time 383.0 seconds. Spinal stimulating leads with leads at indeterminate spinal level. If there is clinical concern for desired level location, radiographs lumbar/thoracic spine recommended. [employer]: Patient 1 : 1945 Age: 74 years Gender: Male Order Date: 08/07/2019 2:09 PM. Exam: FLUORO FOR SURGICAL PROCEDURES Number of Views: 2 Indication: Pain Comparison: None Findings: Spinal stimulating leads are noted with leads at indeterminate spinal level. Postoperative changes lower lumbar spine. [employer]: [facility] Incoming R adiant Results From [employer] - 08/08/2019 8:50 AM EST Patient : [...] desired level location, radiographs lumbar/thoracic spine recommended. [employer]: FLUORO FOR SURGICAL PROCEDUR ESon 08-07-2019 [...] Simon Somers MD 08/08/19 Final result Normal [facility] APTTOrdered By: Tone duron on 07-08-2019 aPTT Coag (Bld) [Time] 33.3 s [employer]: Comment on above: Effective 02/13/2019: Please note methodology and/or reference ranges have changed. aPTT - Heparin Therapeutic Range: 74.0 - 106 seconds BASIC METABOLIC PANELOrdered By: Tone Redd on 07-08-2019 Anion gap [Moles/Vol] 13 mmol/L [employer]: Calcium [Mass/Vol] 9.6 mg/dL 8.5 - 9.9 mg/dL [employer]: Chloride [Moles/Vol] 107 mmol/L [employer]: CO2 [Moles/Vol] 22 mmol/L [employer]: Creatinine [Mass/Vol] 1.02 mg/dL 0.7 - 1.2 mg/dL [employer]: GFR >60.0 >60 [employer]: Comment on above: >60 mL/min/1.73m2 EG FR, calc. for ages 18 and older using the MDRD formula (not corrected for weight), is valid for stable renal function. GFR Non- >60.0 >60 [employer]: Comment on above: >60 mL/min/1.73m2 EG FR, calc. for ages 18 and older using the MDRD formula (not corrected for weight), is valid for stable renal function. Glucose [Mass/Vol] 98 mg/dL 70 - 99 mg/dL [employer]: Potassium [Moles/Vol] 4.5 mmol/L [employer]: Sodium [Moles/Vol] 142 mmol/L [employer]: Urea nitrogen [Mass/Vol] 21 mg/dL 8 - 23 mg/dL [employer]: Basic Metabolic Panelon 12-1 0-2019 Anion gap [Moles/Vol] 13 mmol/L Normal 9-15 [facility] Comment on above: Performed By: #### B MP #### [facility] [address] [place] [address] Calcium [Mass/Vol] 9.6 mg/dL Normal 8.5-9.9 [facility] Comment on above: Performed By: #### B MP #### [facility] [address] [place] [address] Chloride [Moles/Vol] 107 mmol/L Normal 95-107 [facility] Comment on above: Performed By: #### B MP #### [facility] [address] [place] [address] CO2 [Moles/Vol] 22 mmol/L Normal 20-31 [facility] Comment on above: Performed By: #### B MP #### [facility] [address] [place] [address] Creatinine [Mass/Vol] 1.02 mg/dL Normal 0.70-1.20 [facility] Comment on above: Performed By: #### B MP #### [facility] [address] [place] [address] GFR/1.73 sq M predicted among blacks MDRD (S/P/Bld) [Vol rate/Area] mL/min/{1.73_m2} Normal >60 [facility] Comment on above: Result Comment: >60 mL/min/1.73m2 EGFR, calc. for ages 18 and older using the MDRD formula (not corrected for weight), is valid for stable renal function. Performed By: #### B MP #### [facility] [address] [place] [address] GFR/1.73 sq M.predicted MDRD (S/P/Bld) [Vol rate/Area] mL/min/{1.73_m2} Normal >60 [facility] Comment on above: Result Comment: >60 mL/min/1.73m2 EGFR, calc. for ages 18 and older using the MDRD formula (not corrected for weight), is valid for stable renal function. Performed By: #### B MP #### [facility] [address] [place] [address] Glucose [Mass/Vol] 98 mg/dL Normal 70-99 [facility] Comment on above: Performed By: #### B MP #### [facility] [address] [place] [address] Potassium [Moles/Vol] 4.5 mmol/L Normal 3.4-4.9 [facility] Comment on above: Performed By: #### B MP #### [facility] [address] [place] [address] Sodium [Moles/Vol] 142 mmol/L Normal 135-144 [facility] Comment on above: Performed By: #### B MP #### [facility] [address] [place] [address] Urea nitrogen [Mass/Vol] 21 mg/dL Normal 8-23 [facility] Comment on above: Performed By: #### B MP #### [facility] [address] [place] [address] CBCOrdered By: Tone bo on 07-08-2019 Erythrocyte distribution width (RBC) [Ratio] 14.0 % 11.5 - 14.5 % [employer]: Hematocrit (Bld) [Volume fraction] 42.1 % 42 - 52 % [employer]: Hemoglobin (Bld) [Mass/Vol] 14.1 g/dL 14 - 18 g/dL [employer]: MCH (RBC) [Entitic mass] 29.9 pg 27 - 31.3 pg [employer]: MCHC 33.6 % 33 - 37 % [employer]: MCV (RBC) [Entitic vol] 89.0 fL 80 - 100 fL [employer]: Platelets (Bld) [#/Vol] 140 10*3/uL 130 - 400 K/uL [employer]: RBC (Bld) [#/Vol] 4.73 10*6/uL [employer]: WBC (Bld) [#/Vol] 5.7 10*3/uL 4.8 - 10.8 K/uL [facility] [employer] Work Phone: CBC With Platelet No Differe ntialon 07-08-2019 Erythrocyte distribution width (RBC) [Ratio] 14.0 % Normal 11.5-14.5 [facility] Comment on above: Performed By: #### C BCND #### [facility] [address] [place] [address] Hematocrit (Bld) [Volume fraction] 42.1 % Normal 42.0-52.0 [facility] Comment on above: Performed By: #### C BCND #### [facility] [address] [place] [address] Hemoglobin (Bld) [Mass/Vol] 14.1 g/dL Normal 14.0-18.0 [facility] Comment on above: Performed By: #### C BCND #### [facility] [address] [place] [address] MCH (RBC) [Entitic mass] 29.9 pg Normal 27.0-31.3 [facility] Comment on above: Performed By: #### C BCND #### [facility] [address] [place] [address] MCHC (RBC) [Mass/Vol] 33.6 % Normal 33.0-37.0 [facility] Comment on above: Performed By: #### C BCND #### [facility] [address] [place] [address] MCV (RBC) [Entitic vol] 89.0 fL Normal 80.0-100.0 [facility] Comment on above: Performed By: #### C BCND #### [facility] [address] [place] [address] Platelets (Bld) [#/Vol] 140 10*3/uL Normal 130-400 [facility] Comment on above: Performed By: #### C BCND #### [facility] [address] [place] [address] RBC (Bld) [#/Vol] 4.73 10*6/uL Normal 4.70-6.10 [facility] Comment on above: Performed By: #### C BCND #### [facility] [address] [place] [address] WBC (Bld) [#/Vol] 5.7 10*3/uL Normal 4.8-10.8 [facility] Comment on above: Performed By: #### C BCND #### [facility] [address] [place] [address] FLUORO FOR SURGICAL PROCEDUR ESon 07-08-2019 FLUORO [...] Simon Somers MD 07/09/19 Final result Normal [facility] PROTIME-INROrdered By: Carlos Redd on 07-08-2019 INR Coag (PPP) [Relative time] 1.1 {INR} [employer]: Comment on above: Warfarin Therapy INR Therapeutic: 2.0-3.0 With Mechanical Valve: >2.5 Low-intensity Therapeutic Range: 1.5-2.0 Mod-intensity Therapeutic Range: 2.0-3.0 High-intensity Therapeutic Range: 2.5-3.5 HIgh-intensity Therapeutic Range: 3.0-4.0 Common Critical/Alarm Value: 5.0 Common Upper Limit Reported: 10.0 Effective 02/06/2019: Please note methodology and/or reference ranges have changed. PT Coag (PPP) [Time] 14.1 s [employer]: Comment on above: Effective 02/06/19 Please note methodology and/or reference ranges have changed. Partial Thromboplastin Timeo n 07-08-2019 aPTT Coag (Bld) [Time] 33.3 s Normal 24.4-36.8 [facility] Comment on above: Result Comment: Effe ctive 02/13/2019: Please note methodology and/or reference ranges have changed. aPTT - Heparin Therapeutic Range: 74.0 - 106 seconds Performed By: #### P TT #### [facility] [address] [place] [address] Prothrombin Timeon 9 INR Coag (PPP) [Relative time] 1.1 {INR} Normal [facility] Comment on above: Result Comment: Warf jessika Therapy INR Therapeutic: 2.0-3.0 With Mechanical Valve: >2.5 Low-intensity Therapeutic Range: 1.5-2.0 Mod-intensity Therapeutic Range: 2.0-3.0 High-intensity Therapeutic Range: 2.5-3.5 HIgh-intensity Therapeutic Range: 3.0-4.0 Common Critical/Alarm Value: 5.0 Common Upper Limit Reported: 10.0 Effective 02/06/2019: Please note methodology and/or reference ranges have changed. Performed By: #### P T #### [facility] [address] [place] [address] PT Coag (PPP) [Time] 14.1 s Normal 12.3-14.9 [facility] Comment on above: Result Comment: Effe ctive 02/06/19 Please note methodology and/or reference ranges have changed. Performed By: #### P T #### [facility] [address] [place] [address] CHEST AND LATERALon 02-07-20 18 [facility] AND LATERAL [facility] [address] [place] [address] Patient Name: KEVIN GUEVARA : 1945Sex: MAge: Race: WhiteMRN: [id number]. Location: OUTPPatient Status: DVisit #: [id number] Date: 02/06/2018 7:00:00 AMCompleted Date: 02/06/2018 09:23 AMRequesting Provider: SARINA GUZMAN Attending Provider: SAM GREER Report Copy To: Signs & Symptoms: Post Pacemaker/AICD PlacementHistory: Patient history not availableComments: Check Pacemaker/AICD Lead Position, Chest X-ray PA \EANDE\ LAT in Dept ;DO NOT lift affected arm above shoulder. S/P pacemaker/ICD implant. Verify lead placementExam: CHEST AND LATERALAccession #: [id number] CHEST AND LATERAL 02/06/2018 9:23 AM EDT [...] atelectasis Electronically signed by:Florence Vinson. Transcribed by: [email or web address], User Resident: Electronically Signed by: FLORENCE VINSON @ 02/06/2018 02:44 PM Normal [facility] Comment on above: Order Comment: Check Pacemaker/AICD Lead Position, Chest X-ray PA \EANDE\ LAT in Dept ;DO NOT lift affected arm above shoulder. S/P pacemaker/ICD implant. Verify lead placement Cardiovascular Lab Reporton 02-06-[address] [facility] Patient Name: Kevin Guevara [facility] MR #: [id number] Physician: Sam MasonDepartment of Stiven GreerMedicine Service Date: 02/05/2018Division of Birthdate: 1945ardiology Room #: 3CD [id number] CardiovascularServicesUniversit y NlwmzxxJxvlzp7475 [facility].[place], [place] [address]Ljlzr Fax Cardiovascular Laboratory ReportINDICATION: Mr. Kevin Guevara is a 72-year-old gentleman, who I saw inthe [place] office. He sees Dr. Long. He was referred for a CRTDprocedure. He has ejection fraction of 20% to 25%, chronic low ejectionfraction as well, he has a left bundle-branch block with a QRS duration ofapproximately 170 milliseconds.I saw him in the [place] office, went over the procedure, risks andbenefits [...] tethered with 0 silk.At that point, a 10-Sinhala docking station was placed.A long sheath with [...] minutes of fluoroscopy. The device was a [id number], serial number [id number]. The atrial lead is a Medtronic [id number]. The ventricular lead is a Medtronic 6935 [id number]. The leftventricular lead is a Medtronic [id number], serial number [id number].Sensed P and R waves were 3.5 mV with the P waves 7 mV, the R-wave in theRV and 9.4, the LV impedance 627 ohms in the atrium 642, in the [id number] in the coronary sinus. Pacing threshold at [...] 02/05/2018/01:25 P/Sam Greer M.D.Date Trans: 02/06/2018 06:47 A/[id number]: Ren Marcial D.O. [address] [place], [place] [address] [address] [facility] Vital Signs Date Time Vital Sign Value Performing Clinician Lata pak 08-07-2019 16:25-0500 Diastolic blood pressure 78 mm[Hg] Jens Haines MD Work Phone: [employer] Work Phone: 08-07-2019 16:25-0500 Heart rate 78 /min Jens Haines MD Work Phone: [employer] Work Phone: 08-07-2019 16:25-0500 Respiratory rate 20 /min Jens Haines MD Work Phone: [employer] Work Phone: 08-07-2019 16:25-0500 SaO2% (BldA) [Mass fraction] 95 % Jens Haines MD Work Phone: [employer] Work Phone: 08-07-2019 16:25-0500 Systolic blood pressure 148 mm[Hg] Jens Haines MD Work Phone: [employer] Work Phone: 08-07-2019 10:51-0500 Body height 184.2 cm Jens Haines MD Work Phone: [employer] Work Phone: 08-07-2019 10:51-0500 Body mass index (BMI) [Ratio] 34.78 kg/m2 Jens Haines MD Work Phone: [employer] Work Phone: 08-07-2019 10:51-0500 Body temperature 97.59 [degF] Jens Haines MD Work Phone: [employer] Work Phone: 08-07-2019 10:51-0500 Body weight 117.94 kg Jens Haines MD Work Phone: [employer] Work Phone: 07-08-2019 15:25-0500 Body temperature 98.01 [degF] Jens Haines MD Work Phone: [employer] Work Phone: 07-08-2019 15:25-0500 Diastolic blood pressure 94 mm[Hg] Jens Haines MD Work Phone: [employer] Work Phone: 07-08-2019 15:25-0500 Heart rate 78 /min Jens Haines MD Work Phone: [employer] Work Phone: 07-08-2019 15:25-0500 Respiratory rate 16 /min Jens Haines MD Work Phone: [employer] Work Phone: 07-08-2019 15:25-0500 SaO2% (BldA) [Mass fraction] 97 % Jens Haines MD Work Phone: [employer] Work Phone: 07-08-2019 15:25-0500 Systolic blood pressure 158 mm[Hg] Jens Haines MD Work Phone: [employer] Work Phone: 07-08-2019 11:45-0500 Body height 182.9 cm Jens Haines MD Work Phone: [employer] Work Phone: 07-08-2019 11:45-0500 Body mass index (BMI) [Ratio] 35.26 kg/m2 Jens Haines MD Work Phone: [employer] Work Phone: 07-08-2019 11:45-0500 Body weight 117.94 kg Jens Haines MD Work Phone: [employer] Work Phone: Encounters Encounter Date Encounter Type Care Provider Facility Start: 03-05-2025 ambulatory EDUARD LEAL [facility] Start: 03-02-2025 End: 03-02-2025 ambulatory Gill Coronado MD Facility: [facility] Start: 02-17-2025 End: 02-17-2025 ambulatory [facility] Start: 01-26-2025 End: 01-26-2025 ambulatory Gill Coronado MD Facility: [facility] Start: 01-01-2025 End: 01-01-2025 ambulatory ARELIS [facility] Start: 12-25-2024 End: 12-25-2024 ambulatory [facility] Start: 12-09-2024 End: 12-09-2024 ambulatory [facility] Start: 12-01-2024 End: 12-31-2024 Pre-admission assessment [facility] Start: 11-20-2024 ambulatory [facility] Start: 10-28-2024 ambulatory [facility] Start: 10-28-2024 Encounter for preprocedural cardiovascular examination [facility] Start: 10-21-2024 ambulatory [facility] Start: 09-17-2024 ambulatory [facility] Start: 08-19-2024 ambulatory [facility] Start: 07-31-2024 ambulatory [facility] Start: 07-25-2024 ambulatory [facility] Start: 07-08-2024 End: 07-08-2024 ambulatory [facility] Start: 07-04-2024 ambulatory [facility] Start: 06-23-2024 ambulatory [facility] Start: 06-11-2024 ambulatory [facility] Start: 05-16-2024 ambulatory EDUARD LEAL [facility] Start: 05-08-2024 ambulatory [facility] Start: 01-22-2023 ambulatory Nino Romoi ty:[facility] Start: 07-25-2022 End: 07-26-2022 ambulatory CRISSY KINGSLEY Facility:[facility] Start: 07-13-2022 End: 07-14-[address] CASSANDRA LONG Facility:[facility] Start: 11-11-[address] CASSANDRA LONG Fac ility:[facility] Start: 11-08-2021 End: 11-09-[address] CASSANDRA LONG Facility:[facility] Start: 11-04-2021 End: 11-05-[address] CASSANDRA LONG Facility:[facility] Start: 10-04-2021 ambulatory Nino BAE Facility :[facility] Start: 10-04-2021 End: 10-05-2021 ambulatory Nino BAE Facility:[facility] Start: 09-30-2021 End: 10-01-[address] RANDALL HEARD JR Facility:[facility] Start: 08-07-2019 End: 08-07-2019 Patient encounter procedure [facility] Start: 08-07-2019 End: 08-07-2019 Subsequent hospital visit by physician Jens Haines MD Work Phone: [facility] Comment on above: Post-op pain (Primar y Dx) Start: 08-07-2019 End: 08-10-2019 Patient encounter procedure [facility] Start: 08-07-2019 End: 08-09-2019 Subsequent hospital visit by physician Jens Haines MD Work Phone: [facility] Comment on above: Pain Start: 07-08-2019 End: 07-08-2019 Patient encounter procedure JENS HAINES [facility] Start: 07-08-2019 End: 07-08-2019 Subsequent hospital visit by physician Jens Haines MD Work Phone: [facility] Start: 07-08-2019 End: 07-11-2019 Patient encounter procedure JENS HAINES [facility] Start: 02-05-2018 End: 02-06-2018 Patient encounter SAM GREER Facility:[facility] Start: 01-11-2018 End: 01-12-2018 Patient encounter PROVIDER UNKNOWN Facility:[facility] Start: 01-10-2018 End: 01-11-2018 Patient encounter DEFAULT PHYSICIAN Facility:[facility] Procedures Date Procedure Procedure Detail Performing Clinician Start: 09-30-[address] CASSANDRA LONG Comment on above: Performed By: #### P SAD #### [facility] [address] [place] [address] Dr. Javy Brian Start: 08-07-2019 INCENTIVE SPIROMETRY [...] Office Visit Neurosurgery Jens Haines MD [address] [facility], [address] [id number] [employer] Start: 07-11-2019 End: 07-11-2019 Patient encounter procedure 07/11/2019 Office Visit Neurosurgery Jens Haines MD [address] [facility], [address] [id number] [employer] Start: 03-30-2019 Influenza vaccination Flu vaccine (# 1) [employer]: Start: 01-19-2019 Annual Wellness Visi t (AWV) Annual Wellness Visit (AWV) [employer]: Start: 2011 Pneumococcal 65+ yea rs Vaccine (1 of 1 - PPSV23) Pneumococcal 65+ years Vaccine (1 of 1 - PPSV23) [employer]: Start: 02-28-1996 Colon cancer screen colonoscopy Colon cancer screen colonoscopy [employer]: Start: 02-28-1996 Shingles Vaccine (1 of 2) Lester gles Vaccine (1 of 2) [employer]: Start: 1986 Lipid screen Lipid screen [employer] [facility] Work Phone: Start: 1957 DTaP/Tdap/Td vaccine (1 - Tdap) DTaP/Tdap/Td vaccine (1 - Tdap) [employer]: Start: 1945 Hepatitis C screen Hepatitis C scree n [employer] Phone: EKG 12 Lead EKG 12 Lead ECG Routine 07/08/2019 12:00 PM EST [employer]: [facility]rom[facility] Work Phone: Comment on above: Every 2hr while awak e until discontinued starting 07/08/2019 Every 2hr while awak e until discontinued starting 08/07/2019 Initiate Oxygen Ther apy Protocol [employer]: Comment on above: Daily until disconti nued starting 07/08/2019 Daily until disconti nued starting 08/07/2019 Phase I & II - meter ed glucose [employer]: Comment on above: As Needed until disc ontinued starting 07/08/2019 As Needed until disc ontinued starting 08/07/2019 End: 07-08-2019 Pulse Oximetry Spot Check Pulse Oximetry Spot Check Respiratory Care Routine One Time for 1 Occurrences starting 07/08/2019 until 07/08/2019 [employer]: Comment on above: One Time for 1 Occur rences starting 07/08/2019 until 07/08/2019 End: 08-07-2019 Pulse Oximetry Spot Check Pulse Oximetry Spot Check Respiratory Care Routine One Time for 1 Occurrences starting 08/07/2019 until 08/07/2019 [employer]: Comment on above: One Time for 1 Occur rences starting 08/07/2019 until 08/07/2019 Payers Date Payer Category Payer Unknown 2017 Medicare MEDICARE MEDICAR E PART A AND B xxxxxxxxxxx 2017-Present [phone] [address] [address] [place] [address] xxxxxxxxxxx [id number] 2017 Unknown [employer]ICAL [employer] M [employer] MUTUAL [address] xxxxxxxxxxxx 2017-Present [phone] [address] [place] [address] xxxxxxxxxxxx [id number] 2017 Medicare [id number] 1959 Medicare [id number] 1959 Self-pay 1959 Unknown [id number] 1945 Unknown [id number] .182 1945 Unknown [id number] [id number] .182 1945 Unknown [id number] 2.16.840.1.999219.3.579.2 .182 1945 Unknown [id number] 2.16.840.1.049825.3.579.2 .182 1946 Unknown [id number] 2.16.840.1.311994.3.579.2 .593 1945 Unknown [id number] 2.16.840.1.530345.3.579.2 .593 1946 Unknown [id number] 2.16.840.1.418743.3.579.2 .593 1946 Unknown [id number] 2.16.840.1.555049.3.579.2 .593 1945 Unknown [id number] 2.16.840.1.747771.3.579.2 .593 1945 Unknown [id number] 2.16.840.1.634214.3.579.2 .593 1946 Unknown [id number] 2.16.840.1.473770.3.579.2 .727 1945 Unknown [id number] 2.16.840.1.596488.3.579.2 .727 1945 Unknown [id number] 2.16.840.1.850340.3.579.2 .196 1945 Unknown [id number] [id number] .196 Medicare [id number] Private Health Insurance [id number] Social History Date Type Detail Facility Start: 07-07-2019 End: 08-08-2019 Tobacco smoking status NHIS Never smoker [employer]: Start: 07-07-2019 End: 08-08-2019 Alcohol intake Current non-drinker of alcohol (finding) [employer]: Sex Assigned At Not on file [employer]: Start: 12-28-2015 Tobacco smoking status Ex-smoker (fi nding) [facility] Comment on above: 40 years ago Sexual Orientation [facility] Sex Assigned At Male [facility] Start: 12-09-2015 Sex Male (finding) [facility] Medical Equipment Procedure Code Equipment Code Equipment Origin al Text Equipment Identifier Dates Lead Trial Compc t Perc 1x8 [id number] Start: 07-08-2019 Stimulator Intel lis Adaptive Stim Mri - [id number] Start: 08-07-2019 Lead Pain 1x8 60 cm Vectris [id number] Start: 08-07-2019 Lead Pain 1x8 60 cm Marjorie [id number] Start: 08-07-2019 Clinical Notes 07-08-2019 to 01-01-2025 Alexandra Cody RN - 08/07/2019 4:19 PM Oralia Nolasco RN - 07/08/2019 3:27 PM Oralia Smith RN - 07/08/2019 3:08 PM Fouzia Talbert RN - 07/07/2019 2:25 PM EST Note Date & Type Note Facility 01-01-2025 Note [place] Cardiology - [facility] Patient in clinic today for a [...] in clinic in 2-3 months. Arelis Ridley APRN-[facility] Cardiovascular Or (more content not included)... [facility] 01-01-2025 Note Patient is here toda y in office for a wound check. S/P generator change on 12/25/2024 Patient denies fever or chills, small amount of pain 1/10 occasionally, Redness noted around Tegaderm. Small amount of discharge noted on bandage. Review of Systems Constitutional: Negative. [facility] 12-25-2024 Note BiV-ICD GENERATOR RE PLACEMENT [...] weeks. Jose Angel Rey MD Cardiac Electrophysiology 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 Use of blood products discussed with patient who. Additional Equipment Requests [facility] 12-25-2024 Note This report has been cancelled. [facility] 12-09-2024 Note [place] Cardiology Note [facility] Reason for follow-up: BiV ICD HPI: [...] in follow up after recent admission to [facility] when he developed hypotension after GA [...] months now. On his recent echocardiogram at [facility] there was reduced EF 30% and possible apical thrombus. A follow up echocardiogram with [facility] on 01/11/2018 showed EF 25% with [...] Date BACK SURGERY (more content not included)... [facility] 11-21-2024 Note Copy of Medtronic Op tiVol report 11/17/24 Margie Stack PA-C [facility] Cardiovascular Medicine [phone] [facility] 11-21-2024 Note Provider called pt a nd son today for concerns of worsening heart failure index noted on device interrogation. Pt states that he feels well, denied any water retention, leg edema, or weight gain. Denied worsening SOB or orthopnea. States he has actually lost about 20-30 pounds on purpose, and remains fairly active. Therefore, message sent to [place] cardiology staff, Dr Long and Dr Rey with update of pt status, device at 3 month battery life and to monitor for upcoming device exchange for battery. Pt voiced understanding of red flag symptoms to call cardiology for- increased SOB, Orthopnea, weight gain, fatigue, or water retention. Jia Do [facility] Cardiology Available 7a-3pm via [employer] [phone] [facility] 08-07-2019 History of Present illness Narrative disch inst and 2 presc given and explained to pt and son documented in this encounter [employer]: 08-07-2019 Hospital Discharge instructions Alexandra Cody RN - 08/07/2019 Ice packs to the incision Shower on Sunday documented in this encounter [employer]: 07-08-2019 History of Present illness Narrative [...] notified of above. documented in this encounter [employer]: 07-08-2019 Hospital Discharge instructions Oralia Griffin RN - 07/08/2019 May shower and ambulate. Follow instructions of medtronic documented in this encounter [employer]: Evaluation + Plan note No data available for this section [facility] Evaluation note Diagnosis Post-op pain- Primary Other acute postoperative pain documented in this encounter [employer]: evaluation note* Diagnosis Pain Generalized pain documented in this encounter [employer]: Hospital Discharge instructions No data available for this section [facility] Progress note No data available for this section [facility] Summary Purpose Family History No Family History Records FoundNo Family History Records FoundNo Family History Records FoundNo Family History Records Found No data available for this section No Family History Records FoundNo Family History Records Found Advance Directives No Advanced Directives Records FoundDocuments on File Type Date Recorded Patient Holter Technician Expl anation Advance Directives and Living Will Power of Goldbeater Reason for Referral Status Reason Specialty Diagnoses / Procedures Referred By Contact Referred To Contact Pending Review Radiology Diagnoses Pain Procedures Fluoro For Surgical Procedures Jens Haines MD [address] [facility], [address] [place] [address] Additional Source Comments (unrecognized sect ion and content) No Status Records FoundNo Status Records FoundNo Status Records FoundNo Status Records FoundNo Status Records FoundNo Status Records Found INFORMATION SOURCE (unrecogn ized section and content) DATE CREATED AUTHOR 02/12/2018 [facility] DATE CREATED AUTHOR AUTHOR'S ORGANIZ ATION 08/09/2019 [facility] DATE CREATED AUTHOR AUTHOR'S ORGANIZ ATION 07/28/2022 [facility] DATE CREATED AUTHOR AUTHOR'S ORGANIZ ATION 09/22/2022 [facility] DATE CREATED AUTHOR AUTHOR'S ORGANIZ ATION 03/08/2025 [facility] DATE CREATED AUTHOR AUTHOR'S ORGANIZ ATION 03/13/2025 [facility] Reason for Visit (unrecogniz ed section and content) Status Reason Specialty Diagnoses / Procedures Referre d By Contact Referred To Contact Diagnoses RADICULOPATHY, STENOSIS, SPONDYLOSIS Procedures NV NJX DX/THER SBST INTRLMNR CRV/THRC W/IMG GDN D.C.S. (DORSAL COLUMN STIMULATOR) TRIAL 1 HOUR/ 1 C-ARM/ ZOE K[facility]LA [employer] (PAT SAME DAY OF SURGERY) Jens Haines MD [address] [facility] [employer], [address] [place] [address] [facility] Status Reason Specialty Diagnoses / Procedures Referre d By Contact Referred To Contact Diagnoses Cervical spondylosis with myelopathy and radiculopathy RADICULOPATHY SPONDYLOSIS Procedures NV IMPLANT NEUROSTIM/SHOULDER BONER PERMANENT DCS (DORSAL COLUMN STIMULATOR)PLACEMENT, 1 HOUR/ 1 C-ARM/ [employer] ZOE CASON, *NEED MAGNET FOR PACEMAKER, PAT COMPLETED 07/08/19 Jens Haines MD [address], [address] [place] [address] [facility] Patient Care team informatio n (unrecognized section and content) Personnel Name: REN MARCIAL JR, DO Address: [address] [place] [id number] [employer]: FOR RECORDS PERTAINING TO PATIENTS WHO [...] BE BASED ON THE PRIMARY CLINICAL RECORDS. [employer] provides no warranty or guarantee of the accuracy or completeness of information in this document.
--- NOTE | 2025-03-19 08:12 | PM.CN ---
Consult Note: HPI Data of Consult Patient: known to practice within the last 3 years Consult date: 03/19/25 Requesting Physician: Gissel Sequeira NP Primary Care Provider: GIAN MARCIAL DO Consult Narrative Reason for consult: low back pain Narrative: pleasant 80 year old male presents for evaluation of chronic thoracic and lumbar pain, hx of l4,5,S1 fusion and medtronic SCS implant as of 2019, who has failed to benefit from > 6 weeks of PT, provider guided HEP, heat, ice, tylenol, NSAIDs. currently utilizing duloxetine, lyrica, tylenol, baclofen with mild relief. radicular pain well controlled with scs per pt. denies falls or injury over the last 6 months. of note pt has a medtronic pacemaker as well. recently underwent thoracic xray and lumbar CT which shows significant multilevel spondylosis, DDD, and stenosis. pain today 6/10 increasing to 10/10 with standing, walking, stairs, activity, and ADLs. recently underwent bilateral L1/2 L2/3 facet medial branch block #1 and #2 with >80% improvement while anesthetized, preop pain up to 10/10 post op pain 1/10 for 3-4 hours after the injection. noted significant improvement in pain with standing up straight, twisting, and walking. cc:: CC: Gissel Sequeira NP [facility] Medical History (Updated 03/05/25 @ 10:30 by Gissel Sequeira NP) Pacemaker ?Z95.0 - Presence of cardiac pacemaker (ICD-10) Social History Smoking status: Never smoker Little interest or pleasure in doing things: not at all Feeling down, depressed, or hopeless: not at all Meds Home Medications and Allergies Home Medications ?Medication ?Instructions ?Recorded ?Confirmed ?Type allopurinol 300 mg tablet 300 mg PO DAILY 11/06/24 03/16/25 History dapagliflozin propanediol 10 mg 10 mg PO DAILY 11/06/24 03/16/25 History tablet (Farxiga) duloxetine 60 mg capsule,delayed 60 mg PO DAILY 11/06/24 03/16/25 History release (Cymbalta) famotidine 40 mg tablet 40 mg PO DAILY 11/06/24 03/16/25 History finasteride 5 mg tablet 5 mg PO DAILY 11/06/24 03/16/25 History furosemide 20 mg tablet mg 11/06/24 History hydroxychloroquine 200 mg tablet 200 mg PO DAILY 11/06/24 03/16/25 History lubiprostone 8 mcg capsule 8 mcg PO BID 11/06/24 03/16/25 History montelukast 10 mg tablet 10 mg PO DAILY 11/06/24 03/16/25 History pregabalin 200 mg capsule 200 mg PO Q12H 11/06/24 03/16/25 History rosuvastatin 10 mg tablet 10 mg PO DAILY 11/06/24 03/16/25 History sacubitril 49 mg-valsartan 51 mg 1 tab PO BID 11/06/24 03/16/25 History tablet (Entresto) cyclobenzaprine 10 mg tablet See Rx Instructions .Route 03/05/25 03/16/25 Rx .COMPLEX #60 tabs Allergies Allergy/AdvReac Type Severity Reaction Status Date / Time No Known Drug Allergies Allergy Verified 03/16/25 07:35 Exam Constitutional Documenting provider has reviewed patient's vital signs: yes Common normals: no apparent distress, oriented x3, healthy appearing, alert and well nourished General appearance: cooperative HENMT Common normals: normocephalic, hearing grossly normal bilaterally and moist oral mucous membranes Head and scalp: normocephalic Eye Common normals: PERRL Pupil: PERRL Neck & C-Spine Common normals: full ROM General: normal visual inspection Chest Common normals: inspection of chest normal Respiratory Common normals: normal respiratory effort, no retractions and no use of accessory muscles Neuro Common normals: oriented x3 Sensorium/orientation: alert Psych Common normals: mental status grossly normal, thought process normal, cooperative, affect normal, speech normal and activity/motor behavior normal Speech: normal speech Thought process: normal thought process Results Additional Findings Additional findings: If on a controlled substance or opioids, I have checked an [place]AR[place] report on this patient and there are no aberrancies noted in the prescribing history.??If on a controlled substance or opioid a drug screen was completed and reviewed within the last year, and if there has not been a drug screen completed we ordered one today to monitor higher risk, state monitored pain medication use. As part of providing excellent, safe, comprehensive care, the following was completed at our patient's visit: 1. A medication reconciliation and review to ensure accurate knowledge of current/active medications, including asking our patients to inform us about any [id number] medications or herbal remedies/nutritional supplements/alternative remedies. 2. A review to specifically ensure our patients have had annual screening for screening for depression, screening for tobacco use, and screening for unhealthy alcohol use. For concerning screenings had a discussion with the patient, provided patient education, and recommended follow-up with primary care provider when appropriate. If patient noted with a risk of falling, they received education on strength, gait, and balance training to prevent future risk of falling. Portions of this note may have been carried over from the previous visit and updated as appropriate. Please note this office utilizes paper charting in addition to the electronic medical record. A list of current medications, vitals, and PMH is available there as the clinical staff outside of myself do not have access to [place] charting during the clinic day operations. As part of providing quality comprehensive care the current medications, vitals, and PMH were reviewed in the paper chart. Assessment and Plan Assessment and Plan (1) Lumbar spondylosis: Assessment and Plan: The patient has had over 3 months of moderate to severe low back pain with functional impairment and inadequate response to conservative care including NSAIDS (unless there are contraindication such as concurrent blood thinners), multiple oral or topical pain medications, and home exercise program/physical therapy.? Patient has completed >6 weeks of guided home exercise program and/or formal physical therapy program without relief of their symptoms.? The Oswestry Disability Index was completed, and the patient scored a 28%.? The patient noted the following:?? moderate to severe pain impacting standing, walking, ADLs, sleeping, social life, travel We discussed the risks and benefits of the procedure with the patient, and we are NOT planning on using sedation as outlined in the guidelines from Medicare unless there is a documented reason that sedation would be strongly recommended.?? ?The procedure will be completed with fluoroscopic guidance.? (2) Failed back syndrome: (3) S/P insertion of spinal cord stimulator: (4) Myalgia, other site: Plan 80 year old male with chronic thoracic and lumbar pain post scs implant and l4,5,s1 fusion with severe pain unresponsive to > 6 weeks of PT, provider guided HEP, heat, ice, tylenol, nsaids. proceed with bilateral L1/2 L2/3 facet RFA for facet mediated low back pain. pt did not start flexeril due to potential side effects, can continue baclofen 10mg BID PRN pain/spasms. will request cardiac clearance prior to RFA as pt has a pacemaker. f/u 1 month after RFA.
== END 2025-03-19 07:45 | disposition home or self-care (01) ==
LOC: PM 07:44
PROVIDERS: PCP Internal Medicine; Visit Provider Nurse Practitioner
DX: M47.816 Spondylosis without myelopathy or radiculopathy, lumbar region (principal); M96.1 Postlaminectomy syndrome, not elsewhere classified; Z96.82 Presence of neurostimulator; M79.18 Myalgia, other site
CPT/HCPCS: G0463

== ENCOUNTER 2025-04-06 11:42 | Day surgery (SDC) | payer MEDICARE, OTHER, SELFPAY ==
--- OUTSIDE RECORDS SUMMARY | 2025-03-31 08:30 | XMS_ITS | Encounter Summary ---
Author Organization [facility] Address [address] [place] [address] Care Team Providers Care Forest Ecologist Name Role Phone Ren Medrano MD Primary Care Provider Encounter Details Date Type Department Care Team (Latest Contact Info) Description 03/31/2025 8:30 AM EDT Ancillary Procedure [facility] [address] [place] [address] Pre-operative cardiovascular examination, ICD in place Social History Tobacco Use Types Packs/Day Years [...] Description 05/05/2025 9:00 AM EDT Office Visit [facility] [address] [place] [address] Jose Angel Rey MD [address] [place] [address] documented as of this encounter Procedures Procedure Name Priority Date/Time Associated Diagnosis Comments CARDIAC DEVICE CHECK CHECK - REMOTE Routine 03/31/2025 11:30 AM EDT Pre-operative cardiovascular examination, ICD in place documented in this encounter Results * CARDIAC DEVICE CHECK - REMOTE - ICD (03/31/2025 11:30 AM EDT) us Jose Angel Rey MD CV IMPLANTABLE CARDIAC DEVICE ID OCEDURES Final Result CPACS documented in this encounter Visit Diagnoses Diagnosis Pre-operative cardiovascular examination, ICD in place Pre-operative cardiovascular examination documented in this encounter Care Teams Forest Ecologist Relationship Specialty Start Date End Date Ren Medrano MD [address] [place] [address] PCP - General 06/21/22 documented as of this encounter
--- OUTSIDE RECORDS SUMMARY | 2025-04-06 11:44 | XMS_ITS | Encounter Summary ---
Author Organization [facility] Address [address] [place] [address] Care Team Providers Care Mobile Marketing Manager Name Role Phone Ren Medrano MD Primary Care Provider Encounter Details Date Type Department Care Team (Late st Contact Info) Description 02/17/2025 Orders Only [facility] Card[facility] [address] [place] [address] Laura Pardo MD [address] [place] [address] Social History Tobacco Use Types [...] 05/05/2025 9:00 AM EDT Office Visit [facility] [address] [place] [address] Jose Angel Rey MD [address] [place] [address] documented as of this encounter [...] on filedocumented in this encounter Care Teams Mobile Marketing Manager Relationship Specialty Start Date End Date Ren Medrano MD [address] [place] [phone] PCP - General 06/21/22 documented as of this encounter
--- OUTSIDE RECORDS SUMMARY | 2025-04-06 11:45 | XMS_ITS | Encounter Summary ---
Author Organization [facility] Address [address] [place] [address] Care Team Providers Care Relay Tester Name Role Phone Ren Medrano MD Primary Care Provider [phone] Reason for Visit * Reason Comments Med Refill Encounter Details Date Type Department Care Team (Late st Contact Info) Description 11/07/2022 Refill [facility] [address] [place] [address] Ralph Aguilar MD [address] [facility] [address] [facility] [place] [place] [address] Chronic systolic (congestive) heart failure [...] Description 05/05/2025 9:00 AM EDT Office Visit [facility] [address] [place] [phone] Jose Angel Rey MD [address] [place] [address] documented as of this encounter Visit Diagnoses Diagnosis Chronic systolic (congestive) heart failure (CMS/HCC) documented in this encounter Care Teams Relay Tester Relationship Specialty Start Date End Date Ren Medrano MD [facility] [place] [address] PCP - General 06/21/22 documented as of this encounter
--- OUTSIDE RECORDS SUMMARY | 2025-04-06 11:45 | XMS_ITS | Encounter Summary ---
Author Organization [facility] Address [address] [place] [address] Care Team Providers Care Diesel Engine Operator Name Role Phone Ren Medrano MD Primary Care Provider Encounter Details Date Type Department Care Team (Late st Contact Info) Description 03/27/2025 Orders Only [facility] Cardiology Clinic [address] [place] [address] Jose Angel Rey MD [address] [place] [address] Social History Tobacco Use Types [...] [facility] [address] [place] [address] Jose Angel Rey MD [address] [place] [phone] documented as of this encounter Procedures Procedure Name Priority Date/Time Associated Diagnosis Comments CARDIAC DEVICE CHECK - REMOTE - ICD Routine 03/27/2025 12:00 AM EDT documented in this encounter Results * Cardiac device check - Remote ICD (03/27/2025 12:00 AM EDT) Anatomical Region Laterality Modality Other 03/27/2025 Jose Angel Rey MD CV IMPLANTABLE CARDIAC DEVICE VA OCEDURES Final Result documented in this encounter Visit Diagnoses Not on filedocumented in this encounter Care Teams Diesel Engine Operator Relationship Specialty Start Date End Date Ren Medrano MD [address] [place] [phone] PCP - General 06/21/22 documented as of this encounter
--- OUTSIDE RECORDS SUMMARY | 2025-04-06 11:45 | XMS_ITS | Clinical Summary ---
Author Organization [facility] Address [address] [place] [address] Care Team Providers Care Escrow Agent Name Role Phone Unavailable Primary Care Provider [...]
--- OUTSIDE RECORDS SUMMARY | 2025-04-06 11:45 | XMS_ITS | Encounter Summary ---
Author Organization [facility] Address [address] [place] [address] Care Team Providers Care Corporate Logistics Manager Name Role Phone Marcela Carter DO, Charles Lewis Primary Care Provi minoo Source Comments In the event this information is protected by the Federal Confidentiality of Alcohol and Drug AbusePatient Records regulations: The Federal rules restrict any use of the information to criminally investigate or prosecute any alcohol or drug abuse patient.[facility] Encounter Details Date Type Department Care Team (Late st Contact Info) Description 02/03/2015 Abstract Cardiology [address] [place] [address] Mark Domínguez MD [facility] [address] [place] [address] Social History Tobacco Use Types Packs/Day Years [...] on filedocumented in this encounter Care Teams Corporate Logistics Manager Relationship Specialty Start Date End Date Ren Medrano Jr., DO [facility] [place] [address] PCP - General 04/03/03 documented as of this encounter
--- OUTSIDE RECORDS SUMMARY | 2025-04-06 11:45 | XMS_ITS | Clinical Summary ---
Author Organization [facility] Address [address] [place], [place] [id number] Care Team Providers Care Surgical Consultant Name Role Phone Marcela Carter DO, [...] 07/30/2024 Influenza Vaccine (#1) 2025 Care Teams Surgical Consultant Relationship Specialty Start Date End Date Ren Medrano Jr., [facility] [place] [address] PCP - General 04/03/03
--- OUTSIDE RECORDS SUMMARY | 2025-04-06 11:45 | XMS_ITS | Encounter Summary ---
Author Organization [facility] Address [address] [place] [address] Care Team Providers Care Table Games Dual Rate Supervisor Name Role Phone Ren Medrano MD Primary Care Provider Encounter Details Date Type Department Care Team (Late st Contact Info) Description 02/17/2025 Orders Only [facility] Card[facility] [address] [place] [address] Jose Angel Rey MD [address] [place] [address] Social History Tobacco Use Types [...] Description 05/05/2025 9:00 AM EDT Office Visit [facility] [address] [place] [address] Jose Angel Rey MD [address] [place] [phone] documented as of this encounter Procedures Procedure Name Priority Date/Time Associated Diagnosis Comments CARDIAC DEVICE CHECK - REMOTE - ICD Routine 02/17/2025 12:00 AM EDT documented in this encounter Results * Cardiac device check - Remote ICD (02/17/2025 12:00 AM EDT) Anatomical Region Laterality Modality Other 02/17/2025 Jose Angel Rey MD CV IMPLANTABLE CARDIAC DEVICE [place] OCEDURES Final Result documented in this encounter Visit Diagnoses Not on filedocumented in this encounter Care Teams Table Games Dual Rate Supervisor Relationship Specialty Start Date End Date Ren Medrano MD [address] [place] [phone] PCP - General 06/21/22 documented as of this encounter
--- OUTSIDE RECORDS SUMMARY | 2025-04-06 11:45 | XMS_ITS | Clinical Summary ---
Author Organization [facility] Address [address] [place] [address] Care Team Providers Care Safety Coordinator Name Role Phone Ren Medrano MD Primary Care Provider [phone] Allergies Active Allergy Reactions Criticality Noted Date [...] Assessment & Plan (04/25/2023 11:25 AM EDT): [facility] IIb- EF recovered 50-55% on current [...] Encounters Date Type Department Care Team Description 03/31/2025 8:30 AM EDT Ancillary Procedure [facility] [address] [place] [phone] Pre-operative cardiovascular examination, ICD in place 03/27/2025 Orders Only [facility] [address] [place] [address] Jose Angel Rey MD 02/25/2025 11:30 AM EDT Ancillary Procedure [facility] [address] [place] [address] Pre-operative cardiovascular examination, ICD in place 02/24/2025 6:30 PM EDT Ancillary Procedure [facility] [address] [facility] [place] [address] Pre-operative cardiovascular examination, ICD in place 02/17/2025 1:00 PM EDT Ancillary Procedure [facility] [address] [place] [address] Encounter for implantable defibrillator reprogramming or check 02/17/2025 Orders Only [facility] [address] [place] [phone] Laura Pardo MD 02/17/2025 Orders Only [facility] [address] [place] [address] Jose Angel Rey MD from Last 3 Months Family History Medical [...] Description 05/05/2025 9:00 AM EDT Office Visit [facility] [address] [place] [address] Jose Angel Rey MD [address] [place] [address] Health Maintenance Due Date Last Done Comments Medicare Annual Wellness (AWV) 1945 Depression Screening 1958 Zoster Vaccines (1 of 2) 02/28/1996 Fall Risk Screening 2011 COVID-19 Vaccine ( season) 2025 04/27/2023, 06/02/2021, 09/26/2020, Additional history exists Influenza Vaccine (#1) 2025 3, 04/06/2020, 04/08/2019, Additional history exists Adult Tetanus [...] this topic Medical Devices Implanted Type Area Rn Field Case Manager Device Identifier Shelf Expiration Date Model / Serial / Lot [id number] Amplia Mri Quad Pit Hoist Operator-D [id number] Implanted:02/05 (Quantity not on file) NITROGLYCERIN SUPERVISOR-D ICD [id number] AMPLIA MRI QUAD NITROGLYCERIN SUPERVISOR-D / [id number] / [place] Xt Hf Quad Pit Hoist Operator-D Implanted:Qty: 1 on 12/25/2024 by Jose Angel Rey MD at [facility] NITROGLYCERIN SUPERVISOR-D ICD Left: Chest Medtronic 02/03/2026 [id number] / [id number] / Procedures Procedure Name Priority Date/Time Associated Diagnosis Comments CARDIAC DEVICE CHECK CHECK - REMOTE Routine 03/31/2025 11:30 AM EDT Pre-operative cardiovascular examination, ICD in place CARDIAC DEVICE CHECK - REMOTE - ICD Routine 03/27/2025 12:00 AM EDT CARDIAC DEVICE CHECK CHECK [...] - ICD Routine 02/17/2025 12:00 AM EDT from Last 3 Months Results * CARDIAC DEVICE CHECK - REMOTE - ICD (03/31/2025 11:30 AM EDT) Only the most recent of3 resultswithin the time period is included. Jose Angel Rey MD CV IMPLANTABLE CARDIAC DEVICE AL OCEDURES Final Result CPACS * Cardiac device check - Remote ICD (03/27/2025 12:00 AM EDT) Only the most recent of3 resultswithin the time period is included. Anatomical Region Laterality Modality Other 03/27/2025 Jose Angel Rey MD CV IMPLANTABLE CARDIAC DEVICE AL OCEDURES Final Result * CARDIAC DEVICE CHECK - IN CLINIC [...] as per schedule. Please see attached note Jose Angel Rey MD CV IMPLANTABLE CARDIAC DEVICE AL OCEDURES Final Result from Last 3 Months Insurance MEDICARE Member Subscriber Plan / Payer (Ef fective 2015-Present) Name:Kevin Aiken Member ID:[id number] Relation to Subscriber:Self Name:Kevin Aiken Subscriber ID:[id number] Payer ID:[id number] Group ID:Not on file Type:Medicare Address: [facility] [place] [id number] [employer] Care Teams Safety Coordinator Relationship Specialty Start Date End Date Ren Medrano MD [facility] [place] [address] PCP - General 06/21/22
--- OUTSIDE RECORDS SUMMARY | 2025-04-06 11:49 | XMS_ITS | CCD ---
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 Phone PHYSICIAN, DEFAULT Unavailable Unavailable [...] Ren DE LA GARZA Primary Care Provider [phone] ETHAN, DR TRUJILLO Admitting Unavailable MOUKAGUERA, DR [...] Physician Ivonne MARTINEZ, Gill Thakkar Attending Unavailable Ivonne MARTINEZ, Gill Thakkar Attending Unavailable Ivonne MARTINEZ, Gill Thakkar Attending Unavailable ELVIS, EDUARD Referring Unavailable ELVIS, EDUARD [...] Referring Unavailable SAVITA, JOSE ANGEL Referring Unavailable DAMIANARELIS Attending Unavailable SAVITA, JOSE ANGEL Referring Unavailable ELVIS, EDUARD Referring Unavailable SAVITA, JOSE ANGEL Referring Unavailable SAVITA, JOSE ANGEL Referring Unavailable SAVITA, JOSE ANGEL Referring Unavailable SAVITA, JOSE ANGEL Referring Unavailable Allergies Allergy Classification Reported Allergen(s) Allergy Type Date of Onset Reaction(s) Facility (3 sources) tamsulosin Drug Allergy 06-30-2016 [facility] Repository (1 source) NO KNOWN DRUG ALLERGIES Drug allergy (disorder) 06-09-2009 [facility] Repository (3 sources) tamsulosin Drug Allergy 07-07-2019 [facility] (3 sources) tamsulosin; Translations: [tamsulosin] Drug Allergy 02-03-2015 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] Onset: 02-05-2018 Episodic Other connective tissue disease (1 source) [...] Other Problems Problem Classification Problem Date Documented Date Episodic/Chronic Other aftercare (2 sources) Encounter for other specified aftercare; Translations: [Encounter for other specified aftercare] Onset: 01-01-2025 Episodic Other nervous system disorders (1 source) Postoperative pain Episodic Residual codes; unclassified (1 source) Pain Episodic Results Test Name Value Interpretation Reference Range Facility Orders Onlyon 03-27-2025 Orders Only [id number] Jose Guevara 1945 M Date Provider Department Center 03/27/2025 Terry-JOSE ANGEL REY [facility] CARD OR [facility] Family History Problem Relation Age of Onset Stroke Father Family Status - Relation Status Age at Mother Father Brother Alive [facility] Office Visiton 01-01-2025 Follow-up visit [id number] Jose Guevara Sherman 1945 Date Provider Department Center 01/01/2025 ARELIS PENA AIDEE [facility] Family History Problem Relation Age of Onset Stroke Father Family Status - Relation Status Age at Mother Father Brother Alive Level of Service:23170 [place] POSTOP FOLLOW UP VISIT RELATED TO ORIGINAL PX [facility] HPon 12-25-2024 [facility] Cardiology Note [facility] Reason for follow-up: BiV ICD HPI: [...] in follow up after recent admission to [facility] when he developed hypotension after [place] for urologic surgery. 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 He had a recent stress test at Dr Marcial's office which was negative. He has been maintained on coreg and Entresto maximum dosage for >4 months now. On his recent echocardiogram at [facility] there was reduced EF 30% and [...] (more content not included)... Normal [facility] NURSNOTEon 12-25-2024 NURSNOTE RN educated pt on d/ [...] off of unit with all of belongings. [facility] NURSNOTE CHG wipes and betadi ne nasal swabs completed. [facility] Orders Onlyon 12-25-2024 Orders Only [id number] Jose Guevara 1945 Date Provider Department Center 12/25/2024 REINA FRAZIER [facility] VASC LAB OR [facility] Family History Problem Relation Age of Onset Stroke Father Family Status - Relation Status Age at Mother Father Brother Alive [facility] Orders Onlyon 12-17-2024 Orders Only [id number] Jose Guevara 1945 Date Provider Department Center 12/17/2024 JOSE ANGEL ABRAMS [facility] CARD [facility] Family History Problem Relation Age of Onset Stroke Father Family Status - Relation Status Age at Mother Father Brother Alive [facility] Office Visiton 12-09-2024 Follow-up visit [id number] Jose Guevara 1945 Date Provider Department Center 12/09/2024 JOSE ANGEL [facility] Family History Problem Relation Age of Onset Stroke Father Family Status - Relation Status Age at Mother Father Brother Alive Level of Service:25426 [place] OFFICE/OUTPATIENT [facility] MDM 60 MINUTES Normal [facility] Documentationon 11-21-2024 Documentation [id number] Jose Guevara 1945 M Date Provider Department Center 11/21/2024 MELYSSA LEON [facility] HEART [facility] Family History Problem Relation Age of Onset Stroke Father Family Status - Relation Status Age at Father Reason for Visit and Comments: Congestive Heart Failure [127] Normal [facility] Orders Onlyon 11-17-2024 Orders Only [id number] Jose Gueavra 1945 M Date Provider Department Center 11/17/2024 AGUEDA STARKEY [facility] CARD OR [facility] Family History Problem Relation Age of Onset Stroke Father Family Status - Relation Status Age at Father Normal [facility] PROF CHEM 8 (BAS METB)on Anion gap [Moles/Vol] 9.4 mmol/L Normal [facility] Comment on above: Performed By: #### B MP #### [facility] [address] [place] [address] Dr. Javy Brian Calcium [Mass/Vol] 9.7 mg/dL Normal 8.5-10.1 [facility] Comment on above: Performed By: #### B MP #### [facility] [address] [address] [address] Javy Brian Chloride [Moles/Vol] 106 mmol/L Normal 98-107 [facility] Comment on above: Performed By: #### B MP #### [facility] [address] [address] [address] Javy Brian CO2 [Moles/Vol] 30.4 mmol/L Normal 21.0-32.0 [facility] Comment on above: Performed By: #### B MP #### [facility] [address] [address] [address] Javy Brian Creatinine [Mass/Vol] 1.46 mg/dL Critically high 0.70-1.30 [facility] Comment on above: Performed By: #### B MP #### [facility] [address] [address] [address] Javy Brian EGFR-AF JORDANIAN 57 mL/min/1.73m2 Critically low >=60 [facility] Comment on above: Performed By: #### B MP #### [facility] [address] [address] [address] Javy Brain EGFR-NON AF JORDANIAN 47 mL/min/1.73m2 Critically low >=60 [facility] Comment on above: Performed By: #### B MP #### [facility] [address] [address] [address] Javy Brian Glucose [Mass/Vol] 99 mg/dL Normal 74-106 [facility] Comment on above: Performed By: #### B MP #### [facility] [address] [address] [address] Javy Brian Potassium [Moles/Vol] 4.8 mmol/L Normal 3.5-5.1 [facility] Comment on above: Performed By: #### B MP #### [facility] [address] [address] [address] Javy Brian Sodium [Moles/Vol] 141 mmol/L Normal 136-145 [facility] Comment on above: Performed By: #### B MP #### [facility] [address] [address] [address] Javy Brian Urea nitrogen [Mass/Vol] 23.0 mg/dL Critically high 7.0-18.0 [facility] Comment on above: Performed By: #### B MP #### [facility] [address] [address] [address] Javy Brian Urea nitrogen/Creatinin e [Mass ratio] 15.8 mg/mg Normal [facility] Comment on above: Performed By: #### B MP #### [facility] [address] [address] [address] Javy Brian PROF CHEM 8 (BAS METB)on Anion gap [Moles/Vol] 10.7 mmol/L Normal [facility] Comment on above: Performed By: #### B MP #### [facility] [address] [address] [address] Javy Brian Calcium [Mass/Vol] 9.7 mg/dL Normal 8.5-10.1 [facility] Comment on above: Performed By: #### B MP #### [facility] [address] [address] [address] Javy Brian Chloride [Moles/Vol] 106 mmol/L Normal 98-107 [facility] Comment on above: Performed By: #### B MP #### [facility] [address] [address] [address] Javy Brian CO2 [Moles/Vol] 29.5 mmol/L Normal 21.0-32.0 [facility] Comment on above: Performed By: #### B MP #### [facility] [address] [place] [address] Dr. Javy Brian Creatinine [Mass/Vol] 1.79 mg/dL Critically high 0.70-1.30 [facility] Comment on above: Performed By: #### B MP #### [facility] [address] [place] [address] Dr. Javy Brian EGFR-AF JORDANIAN 45 mL/min/1.73m2 Critically low >=60 [facility] Comment on above: Performed By: #### B MP #### [facility] [address] [place] [address] Dr. Javy Brian EGFR-NON AF JORDANIAN 37 mL/min/1.73m2 Critically low >=60 [facility] Comment on above: Performed By: #### B MP #### [facility] [address] [address] [address] Javy Brian Glucose [Mass/Vol] 94 mg/dL Normal 74-106 [facility] Comment on above: Performed By: #### B MP #### [facility] [address] [address] [address] Javy Brian Potassium [Moles/Vol] 5.2 mmol/L Critically high 3.5-5.1 [facility] Comment on above: Performed By: #### B MP #### [facility] [address] [address] [address] Javy Brian Sodium [Moles/Vol] 141 mmol/L Normal 136-145 [facility] Comment on above: Performed By: #### B MP #### [facility] [address] [address] [address] Javy Brian Urea nitrogen [Mass/Vol] 34.0 mg/dL Critically high 7.0-18.0 [facility] Comment on above: Performed By: #### B MP #### [facility] [address] [address] [address] Javy Brian Urea nitrogen/Creatinin e [Mass ratio] 19.0 mg/mg Normal [facility] Comment on above: Performed By: #### B MP #### [facility] [address] [address] [address] Javy Brian PROF CHEM 8 (BAS METB)on Anion gap [Moles/Vol] 12.0 mmol/L Normal [facility] Comment on above: Performed By: #### B MP #### [facility] [address] [place] [address] Dr. Javy Brian Calcium [Mass/Vol] 8.9 mg/dL Normal 8.5-10.1 [facility] Comment on above: Performed By: #### B MP #### [facility] [address] [place] [address] Dr. Javy Brian Chloride [Moles/Vol] 109 mmol/L Critically high 98-107 [facility] Comment on above: Performed By: #### B MP #### [facility] [address] [place] [address] Dr. Javy Brian CO2 [Moles/Vol] 29.0 mmol/L Normal 22.0-30.0 [facility] Comment on above: Performed By: #### B MP #### [facility] [address] [place] [address] Dr. Javy Brian Creatinine [Mass/Vol] 1.79 mg/dL Critically high 0.66-1.25 [facility] Comment on above: Performed By: #### B MP #### [facility] [address] [address] [address] Javy Brian EGFR-AF JORDANIAN 45 mL/min/1.73m2 Critically low >=60 [facility] Comment on above: Performed By: #### B MP #### [facility] [address] [address] [address] Javy Brian EGFR-NON AF JORDANIAN 37 mL/min/1.73m2 Critically low >=60 [facility] Comment on above: Performed By: #### B MP #### [facility] [address] [address] [address] Javy Brian Glucose [Mass/Vol] 92 mg/dL Normal 74-106 [facility] Comment on above: Performed By: #### B MP #### [facility] [address] [address] [address] Javy Brian Potassium [Moles/Vol] 5.0 mmol/L Normal 3.4-5.0 [facility] Comment on above: Performed By: #### B MP #### [facility] [address] [address] [address] Javy Brian Sodium [Moles/Vol] 145 mmol/L Normal 137-145 [facility] Comment on above: Performed By: #### B MP #### [facility] [address] [place] [address] Dr. Javy Brian Urea nitrogen [Mass/Vol] 35.0 mg/dL Critically high 7.0-18.0 [facility] Comment on above: Performed By: #### B MP #### [facility] [address] [address] [address] Javy Brian Urea nitrogen/Creatinin e [Mass ratio] 19.6 mg/mg Normal [facility] Comment on above: Performed By: #### B MP #### [facility] [address] [place] [address] Dr. Javy Brian CBC AUTO DIFFon 11-04-2021 BASO # 0.0 103/ul Normal 0.0-0.1 [facility] Comment on above: Performed By: #### C BC #### [facility] [address] [place] [address] Dr. Javy Brian Basophils/100 WBC (Bld) 0.7 % Normal 0.2-2.0 [facility] Comment on above: Performed By: #### C BC #### [facility] [address] [place] [address] Dr. Javy Brian EO # 0.2 103/ul Normal 0.0-0.7 [facility] Comment on above: Performed By: #### C BC #### [facility] [address] [place] [address] Dr. Javy Brian Eosinophils/100 WBC (Bld) 3.1 % Normal 0.9-7.0 [facility] Comment on above: Performed By: #### C BC #### [facility] [address] [place] [address] Dr. Javy Brian Erythrocyte distribution width (RBC) [Ratio] 14.3 % Normal 11.0-15.0 [facility] Comment on above: Performed By: #### C BC #### [facility] [address] [place] [address] Dr. Javy Brian Hematocrit (Bld) [Volume fraction] 43.5 % Normal 42.0-54.0 [facility] Comment on above: Performed By: #### C BC #### [facility] [address] [place] [address] Dr. Javy Brian Hemoglobin (Bld) [Mass/Vol] 13.7 g/dL Critically low 14.0-18.0 [facility] Comment on above: Performed By: #### C BC #### [facility] [address] [place] [address] Dr. Javy Brian IG # 0.01 10e3/ul Normal 0.00-0.03 [facility] Comment on above: Performed By: #### C BC #### [facility] [address] [place] [address] Dr. Javy Brian IG % 0.2 % Normal 0.0-0.5 [facility] Comment on above: Performed By: #### C BC #### [facility] [address] [place] [address] Dr. Javy Brian LYMPH # 1.4 103/ul Normal 1.2-3.8 [facility] Comment on above: Performed By: #### C BC #### [facility] [address] [place] [address] Dr. Javy Brian Lymphocytes/100 WBC (Bld) 23.6 % Normal 20.5-60.0 [facility] Comment on above: Performed By: #### C BC #### [facility] [address] [place] [address] Dr. Javy Brian MANUAL DIFF REQ NO Normal [facility] Comment on above: Performed By: #### C BC #### [facility] [address] [place] [address] Dr. Javy Brian MCH (RBC) [Entitic mass] 29.0 pg Normal 25.9-34.0 [facility] Comment on above: Performed By: #### C BC #### [facility] [address] [place] [address] Dr. Javy Brian MCHC (RBC) [Mass/Vol] 31.5 g/dL Normal 29.9-35.2 [facility] Comment on above: Performed By: #### C BC #### [facility] [address] [place] [address] Dr. Javy Brian MCV (RBC) [Entitic vol] 92.0 fL Normal 80.0-94.0 [facility] Comment on above: Performed By: #### C BC #### [facility] [address] [place] [address] Dr. Javy Brian MONO # 0.8 103/ul Normal 0.3-0.8 [facility] Comment on above: Performed By: #### C BC #### [facility] [address] [place] [address] Dr. Javy Brian Monocytes/100 WBC (Bld) 14.1 % Critically high 1.7-12.0 [facility] Comment on above: Performed By: #### C BC #### [facility] [address] [place] [address] Dr. Javy Brian NEUT # 3.4 103/ul Normal 1.4-6.5 [facility] Comment on above: Performed By: #### C BC #### [facility] [address] [place] [address] Dr. Javy Brian Neutrophils/100 WBC (Bld) 58.3 % Normal 43.0-75.0 [facility] Comment on above: Performed By: #### C BC #### [facility] [address] [place] [address] Dr. Javy Brian Platelet mean volume (Bld) [Entitic vol] 9.7 fL Normal 9.5-13.5 [facility] Comment on above: Performed By: #### C BC #### [facility] [address] [place] [address] Dr. Javy Brian PLT 113 103/ul Critically low 150-450 [facility] Comment on above: Performed By: #### C BC #### [facility] [address] [place] [address] Dr. Javy Brian RBC 4.73 106/ul Normal 4.70-6.10 [facility] Comment on above: Performed By: #### C BC #### [facility] [address] [place] [address] Dr. Javy Brian WBC 5.8 103/ul Normal 4.0-11.0 [facility] Comment on above: Performed By: #### C BC #### [facility] [address] [place] [address] Dr. Javy Brian PROF CHEM 8 (BAS METB)on Anion gap [Moles/Vol] 13.2 mmol/L Normal [facility] Comment on above: Performed By: #### B MP #### [facility] [address] [place] [address] Dr. Javy Brian Calcium [Mass/Vol] 9.1 mg/dL Normal 8.5-10.1 [facility] Comment on above: Performed By: #### B MP #### [facility] [address] [place] [address] Dr. Javy Brian Chloride [Moles/Vol] 110 mmol/L Critically high 98-107 [facility] Comment on above: Performed By: #### B MP #### [facility] [address] [address] [address] Javy Brina CO2 [Moles/Vol] 27.6 mmol/L Normal 22.0-30.0 [facility] Comment on above: Performed By: #### B MP #### [facility] [address] [address] [address] Javy Brian Creatinine [Mass/Vol] 1.61 mg/dL Critically high 0.66-1.25 [facility] Comment on above: Performed By: #### B MP #### [facility] [address] [place] [address] Dr. Javy Brian EGFR-AF JORDANIAN 51 mL/min/1.73m2 Critically low >=60 [facility] Comment on above: Performed By: #### B MP #### [facility] [address] [place] [address] Dr. Javy Brian EGFR-NON AF JORDANIAN 42 mL/min/1.73m2 Critically low >=60 [facility] Comment on above: Performed By: #### B MP #### [facility] [address] [place] [address] Dr. Javy Brian Glucose [Mass/Vol] 94 mg/dL Normal 74-106 [facility] Comment on above: Performed By: #### B MP #### [facility] [address] [address] [address] Javy Brian Potassium [Moles/Vol] 5.8 mmol/L Critically high 3.4-5.0 [facility] Comment on above: Performed By: #### B MP #### [facility] [address] [address] [address] Javy Brian Sodium [Moles/Vol] 145 mmol/L Normal 137-145 [facility] Comment on above: Performed By: #### B MP #### [facility] [address] [address] [address] Javy Brian Urea nitrogen [Mass/Vol] 27.0 mg/dL Critically high 7.0-18.0 [facility] Comment on above: Performed By: #### B MP #### [facility] [address] [address] [address] Javy Brian Urea nitrogen/Creatinin e [Mass ratio] 16.8 mg/mg Normal [facility] Comment on above: Performed By: #### B MP #### [facility] [address] [place], [place] [address] Dr. Javy Brian Ambulatory Visit Summaryon 0 10-04-2021 Ambulatory Visit Summary INDIO GUEVARA :1945 Visit Date:10/04/2021 Ambulatory Visit Instructions Your Diagnosis BPH with urinary obstruction Personal history of kidney stones Tests Performed Urnls Dip Stick Auto w/o Microscopy POC 09868 Your Care Team Attending Physician - Félix Carter MD, Randall Espino Primary Care Physician - REN MARCIAL JR, DO This Is Your Medications List Contact prescribing physician if questions or concerns acetaminophen-hydrocodone ([place] 325 mg-5 mg oral tablet) allopurinol (allopurinol [...] What to do next Scheduled Follow-Up Appointments Sunday. 2022 10:30 AM EDT With: Félix Carter MD, aRndall Espino Where: [facility] [place] Normal [facility] Patient Educationon 10-05-19 Patient Education Urology [...] Follow these instructions at home: ? Take flai-brw-hhwiein and prescription medicines only as told by [...] You d (more content not included)... Normal [facility] Urology Office/Clinic Noteon 10-04-2021 Urology Office/Clinic [...] Urnls Dip Stick Auto w/o Microscopy POC 18626 2. Personal history of kidney stones (Z87.442: [...] Tab, 12.5 (more content not included)... Normal [facility] Comment on above: Result Comment: Elec tronically Signed By: Félix Carter MD, Randall Espino\.br\Date and Time Signed: 10/04/21 11:52 EST\.br\Electronically Co-Signed By: Shakira Emery MA\.br\Date and Time Co-Signed: 10/04/21 11:49 EST Lab Reportson 10-03-2021 Lab Reports [id number]:[id number] Normal [facility] Fluoro For Surgical Procedur esOrdered By: Enrique Mayers on 08-08-2019 Impression: Fluorosc opic time 383.0 seconds. Spinal stimulating leads with leads at indeterminate spinal level. If there is clinical concern for desired level location, radiographs lumbar/thoracic spine recommended. [facility] Phone: Patient 1 : 1945 Age: 74 years Gender: Male Order Date: 08/07/2019 2:09 PM. Exam: FLUORO FOR SURGICAL PROCEDURES Number of Views: 2 Indication: Pain Comparison: None Findings: Spinal stimulating leads are noted with leads at indeterminate spinal level. Postoperative changes lower lumbar spine. [facility] Phone: [facility], [facility] Incoming R adiant Results From [employer]/DLCs - 08/08/2019 8:50 AM EST Patient : [...] desired level location, radiographs lumbar/thoracic spine recommended. [facility] Phone: FLUORO FOR SURGICAL PROCEDUR ESon 08-07-2019 [...] Simon Somers MD 08/08/19 Final result Normal [facility] APTTOrdered By: Tone duron on 07-08-2019 aPTT Coag (Bld) [Time] 33.3 s [facility] Phone: Comment on above: Effective 02/13/2019: Please note methodology and/or reference ranges have changed. aPTT - Heparin Therapeutic Range: 74.0 - 106 seconds BASIC METABOLIC PANELOrdered By: Tone Redd on 07-08-2019 Anion gap [Moles/Vol] 13 mmol/L [facility] Phone: Calcium [Mass/Vol] 9.6 mg/dL 8.5 - 9.9 mg/dL [facility] Phone: Chloride [Moles/Vol] 107 mmol/L [facility] Phone: CO2 [Moles/Vol] 22 mmol/L [facility] Phone: Creatinine [Mass/Vol] 1.02 mg/dL 0.7 - 1.2 mg/dL [facility] Phone: GFR >60.0 >60 [facility] Phone: Comment on above: >60 mL/min/1.73m2 EG FR, calc. for ages 18 and older using the MDRD formula (not corrected for weight), is valid for stable renal function. GFR Non- >60.0 >60 [facility] Phone: Comment on above: >60 mL/min/1.73m2 EG FR, calc. for ages 18 and older using the MDRD formula (not corrected for weight), is valid for stable renal function. Glucose [Mass/Vol] 98 mg/dL 70 - 99 mg/dL [facility] Phone: Potassium [Moles/Vol] 4.5 mmol/L [facility] Phone: Sodium [Moles/Vol] 142 mmol/L [facility] Phone: Urea nitrogen [Mass/Vol] 21 mg/dL 8 - 23 mg/dL [facility] Phone: Basic Metabolic Panelon 12-1 Anion gap [Moles/Vol] 13 mmol/L Normal 9-15 [facility] Comment on above: Performed By: #### B MP #### [facility] [address] [place] [address] Calcium [Mass/Vol] 9.6 mg/dL Normal 8.5-9.9 [facility] [facility] Comment on above: Performed By: #### B MP #### [facility] [address] [place] [address] Chloride [Moles/Vol] 107 mmol/L Normal 95-107 [facility] Comment on above: Performed By: #### B MP #### [facility] [address] [place] [address] CO2 [Moles/Vol] 22 mmol/L Normal 20-31 [facility] Comment on above: Performed By: #### B MP #### [facility] [address] [place] [address] Creatinine [Mass/Vol] 1.02 mg/dL Normal 0.70-1.20 [facility] Comment on above: Performed By: #### B MP #### [facility] [address] [place] [address] GFR/1.73 sq M predicted among blacks MDRD (S/P/Bld) [Vol rate/Area] mL/min/{1.73_m2} Normal >60 [facility] Comment on above: Result Comment: >60 mL/min/1.73m2 EGFR, calc. for ages 18 and older using the MDRD formula (not corrected for weight), is valid for stable renal function. Performed By: #### B MP #### [facility] [address] [place] [address] GFR/1.73 sq M.predicted MDRD (S/P/Bld) [Vol rate/Area] mL/min/{1.73_m2} Normal >60 [facility] Comment on above: Result Comment: >60 mL/min/1.73m2 EGFR, calc. for ages 18 and older using the MDRD formula (not corrected for weight), is valid for stable renal function. Performed By: #### B MP #### [facility] [address] [place] [address] Glucose [Mass/Vol] 98 mg/dL Normal 70-99 [facility] Comment on above: Performed By: #### B MP #### [facility] [address] [place] [address] Potassium [Moles/Vol] 4.5 mmol/L Normal 3.4-4.9 [facility] Comment on above: Performed By: #### B MP #### [facility] [address] [place] [address] Sodium [Moles/Vol] 142 mmol/L Normal 135-144 [facility] Comment on above: Performed By: #### B MP #### [facility] [address] [place] [address] Urea nitrogen [Mass/Vol] 21 mg/dL Normal 8-23 [facility] Comment on above: Performed By: #### B MP #### [facility] [address] [place] [address] CBCOrdered By: Tone bo on 07-08-2019 Erythrocyte distribution width (RBC) [Ratio] 14.0 % 11.5 - 14.5 % [employer] Phone: Hematocrit (Bld) [Volume fraction] 42.1 % 42 - 52 % [employer] Phone: Hemoglobin (Bld) [Mass/Vol] 14.1 g/dL 14 - 18 g/dL [employer] Phone: MCH (RBC) [Entitic mass] 29.9 pg 27 - 31.3 pg [employer] Phone: MCHC 33.6 % 33 - 37 % [employer] Phone: MCV (RBC) [Entitic vol] 89.0 fL 80 - 100 fL [email or web address] Phone: Platelets (Bld) [#/Vol] 140 10*3/uL 130 - 400 K/uL [email or web address] Phone: RBC (Bld) [#/Vol] 4.73 10*6/uL [email or web address] Phone: WBC (Bld) [#/Vol] 5.7 10*3/uL 4.8 - 10.8 K/uL [email or web address] Phone: CBC With Platelet No Differe ntialon 07-08-2019 Erythrocyte distribution width (RBC) [Ratio] 14.0 % Normal 11.5-14.5 [facility] Comment on above: Performed By: #### C BCND #### [facility] [address] [place] [address] Hematocrit (Bld) [Volume fraction] 42.1 % Normal 42.0-52.0 [facility] Comment on above: Performed By: #### C BCND #### [facility] [address] [place] [address] Hemoglobin (Bld) [Mass/Vol] 14.1 g/dL Normal 14.0-18.0 [facility] Comment on above: Performed By: #### C BCND #### [facility] [address] [place] [address] MCH (RBC) [Entitic mass] 29.9 pg Normal 27.0-31.3 [facility] Comment on above: Performed By: #### C BCND #### [facility] [address] [place] [address] MCHC (RBC) [Mass/Vol] 33.6 % Normal 33.0-37.0 [facility] Comment on above: Performed By: #### C BCND #### [facility] [address] [place] [address] MCV (RBC) [Entitic vol] 89.0 fL Normal 80.0-100.0 [facility] Comment on above: Performed By: #### C BCND #### [facility] [address] [place] [address] Platelets (Bld) [#/Vol] 140 10*3/uL Normal 130-400 [facility] Comment on above: Performed By: #### C BCND #### [facility] [address] [place] [address] RBC (Bld) [#/Vol] 4.73 10*6/uL Normal 4.70-6.10 [facility] Comment on above: Performed By: #### C BCND #### [facility] [address] [place] [address] WBC (Bld) [#/Vol] 5.7 10*3/uL Normal 4.8-10.8 [facility] Comment on above: Performed By: #### C BCND #### [facility] [address] [place] [address] FLUORO FOR SURGICAL PROCEDUR ESon 07-08-2019 FLUORO [...] Simon Somers MD 07/09/19 Final result Normal [facility] PROTIME-INROrdered By: Carlos Redd on 07-08-2019 INR Coag (PPP) [Relative time] 1.1 {INR} [facility] [employer] Work Phone: Comment on above: Warfarin Therapy INR Therapeutic: 2.0-3.0 With Mechanical Valve: >2.5 Low-intensity Therapeutic Range: 1.5-2.0 Mod-intensity Therapeutic Range: 2.0-3.0 High-intensity Therapeutic Range: 2.5-3.5 HIgh-intensity Therapeutic Range: 3.0-4.0 Common Critical/Alarm Value: 5.0 Common Upper Limit Reported: 10.0 Effective 02/06/2019: Please note methodology and/or reference ranges have changed. PT Coag (PPP) [Time] 14.1 s [facility] [employer] Work Phone: Comment on above: Effective 02/06/19 Please note methodology and/or reference ranges have changed. Partial Thromboplastin Timeo n 07-08-2019 aPTT Coag (Bld) [Time] 33.3 s Normal 24.4-36.8 [facility] Comment on above: Result Comment: Effe ctive 02/13/2019: Please note methodology and/or reference ranges have changed. aPTT - Heparin Therapeutic Range: 74.0 - 106 seconds Performed By: #### P TT #### [facility] [address] [place] [address] Prothrombin Timeon 9 INR Coag (PPP) [Relative time] 1.1 {INR} Normal [facility] Comment on above: Result Comment: Warf jessika Therapy INR Therapeutic: 2.0-3.0 With Mechanical Valve: >2.5 Low-intensity Therapeutic Range: 1.5-2.0 Mod-intensity Therapeutic Range: 2.0-3.0 High-intensity Therapeutic Range: 2.5-3.5 HIgh-intensity Therapeutic Range: 3.0-4.0 Common Critical/Alarm Value: 5.0 Common Upper Limit Reported: 10.0 Effective 02/06/2019: Please note methodology and/or reference ranges have changed. Performed By: #### P T #### [facility] [address] [place] [address] PT Coag (PPP) [Time] 14.1 s Normal 12.3-14.9 [facility] Comment on above: Result Comment: Effe ctive 02/06/19 Please note methodology and/or reference ranges have changed. Performed By: #### P T #### [facility] [address] [place] [address] CHEST AND LATERALon 07-11-20 18 CHEST AND LATERAL [facility] [address] [place] [address] Patient Name: INDIO GUEVARA : 1945Sex: MAge: Race: WhiteMRN: [id number]. Location: OUTPPatient Status: DVisit #: [id number] Date: 02/06/2018 7:00:00 AMCompleted Date: 02/06/2018 09:23 AMRequesting Provider: SARINA GUZMAN Attending Provider: SAM GREER Report Copy To: Signs & Symptoms: Post Pacemaker/AICD PlacementHistory: Patient history not availableComments: Check Pacemaker/AICD Lead Position, Chest X-ray PA \EANDE\ LAT in Dept ;DO NOT lift affected arm above shoulder. S/P pacemaker/ICD implant. Verify lead placementExam: CHEST AND LATERALAccession #: [id number] CHEST AND LATERAL 02/06/2018 9:23 AM EDT [...] atelectasis Electronically signed by:Florence Vinson. Transcribed by: [email or web address], User Resident: Electronically Signed by: FLORENCE VINSON @ 02/06/2018 02:44 PM Normal [facility] Comment on above: Order Comment: Check Pacemaker/AICD Lead Position, Chest X-ray PA \EANDE\ LAT in Dept ;DO NOT lift affected arm above shoulder. S/P pacemaker/ICD implant. Verify lead placement Cardiovascular Lab Reporton 02-06-[address] [facility] Patient Name: Indio Guevara [facility] MR #: [id number] Physician: Sam MasonDepartment of Stiven GreerMedicine Service Date: 02/05/2018Division of Birthdate: 6Cardiology Room #: 3CD [id number] CardiovascularServicesUniversit y [address] [place], [place] [address]Riwsx Fax Cardiovascular Laboratory ReportINDICATION: Mr. Indio [place] is a 72-year-old gentleman, who I saw inthe [facility] office. He sees Dr. Long. He was referred for a CRTDprocedure. He has ejection fraction of 20% to 25%, chronic low ejectionfraction as well, he has a left bundle-branch block with a QRS duration ofapproximately 170 milliseconds.I saw him in the [facility] office, went over the procedure, risks andbenefits [...] tethered with 0 silk.At that point, a 10-Thai docking station was placed.A long sheath with [...] minutes of fluoroscopy. The device was a [id number], serial number [id number]. The atrial lead is a Medtronic [id number]. The ventricular lead is a Medtronic 6935 [id number]. The leftventricular lead is a Medtronic [id number], serial number [id number].Sensed P and R waves were 3.5 mV with the P waves 7 mV, the R-wave in theRV and 9.4, the LV impedance 627 ohms in the atrium 642, in the [id number] in the coronary sinus. Pacing threshold at [...] 02/05/2018/01:25 P/Sam Greer M.D.Date Trans: 02/06/2018 06:47 A/[id number]: Ren Marcial D.O. [address] [place] [address]. [facility] [address] [facility] Vital Signs Date Time Vital Sign Value Performing Clinician Lata pak 08-07-2019 16:25-0500 Diastolic blood pressure 78 mm[Hg] Enrique Mayers MD Work Phone: [employer] Work Phone: 08-07-2019 16:25-0500 Heart rate 78 /min Enrique Mayers MD Work Phone: [employer] Work Phone: 08-07-2019 16:25-0500 Respiratory rate 20 /min Enrique Mayers MD Work Phone: [employer] Work Phone: 08-07-2019 16:25-0500 SaO2% (BldA) [Mass fraction] 95 % Enrique Mayers MD Work Phone: [employer] Work Phone: 08-07-2019 16:25-0500 Systolic blood pressure 148 mm[Hg] Enrique Mayers MD Work Phone: [employer] Work Phone: 08-07-2019 10:51-0500 Body height 184.2 cm Enrique Mayers MD Work Phone: [employer] Work Phone: 08-07-2019 10:51-0500 Body mass index (BMI) [Ratio] 34.78 kg/m2 Enrique Mayers MD Work Phone: [employer] Work Phone: 08-07-2019 10:51-0500 Body temperature 97.59 [degF] Enrique Mayers MD Work Phone: [employer] Work Phone: 08-07-2019 10:51-0500 Body weight 117.94 kg Enrique Mayers MD Work Phone: [employer] Work Phone: 07-08-2019 15:25-0500 Body temperature 98.01 [degF] Enrique Mayers MD Work Phone: [employer] Work Phone: 07-08-2019 15:25-0500 Diastolic blood pressure 94 mm[Hg] Enrique Mayers MD Work Phone: [employer] Work Phone: 07-08-2019 15:25-0500 Heart rate 78 /min Enrique Mayers MD Work Phone: [employer] Work Phone: 07-08-2019 15:25-0500 Respiratory rate 16 /min Enrique Mayers MD Work Phone: [employer] Work Phone: 07-08-2019 15:25-0500 SaO2% (BldA) [Mass fraction] 97 % Enrique Mayers MD Work Phone: [employer] Work Phone: 07-08-2019 15:25-0500 Systolic blood pressure 158 mm[Hg] Enrique Mayers MD Work Phone: [employer] Work Phone: 07-08-2019 11:45-0500 Body height 182.9 cm Enrique Mayers MD Work Phone: [employer] Work Phone: 07-08-2019 11:45-0500 Body mass index (BMI) [Ratio] 35.26 kg/m2 Enrique Mayers MD Work Phone: [employer] Work Phone: 07-08-2019 11:45-0500 Body weight 117.94 kg Enrique Mayers MD Work Phone: [employer] Work Phone: Encounters Encounter Date Encounter Type Care Provider Facility Start: 03-31-2025 ambulatory [facility] Start: 03-16-2025 End: 03-16-2025 ambulatory Gill Coronado MD Facility:[facility] Start: 03-05-2025 ambulatory [facility] Start: 03-05-2025 Encounter for preprocedural cardiovascular examination [facility] Start: 03-02-2025 End: 03-02-2025 ambulatory Gill Coronado MD Facility:[facility] Start: 02-17-2025 End: 02-17-2025 ambulatory [facility] Start: 01-26-2025 End: 01-26-2025 ambulatory Gill Coronado MD Facility:[facility] Start: 01-01-2025 End: 01-01-2025 ambulatory [facility]IS [facility] Start: 12-25-2024 End: 12-25-2024 ambulatory [facility] Start: 12-09-2024 End: 12-09-2024 ambulatory [facility] Start: 12-01-2024 End: 12-31-2024 Pre-admission assessment [facility] CORE[facility] Start: 11-20-2024 ambulatory [facility] Start: 10-28-2024 ambulatory [facility] Start: 10-21-2024 ambulatory [facility] Start: 09-17-2024 ambulatory [facility] Start: 08-19-2024 ambulatory [facility] Start: 07-31-2024 ambulatory [facility] Start: 07-25-2024 ambulatory [facility] Start: 07-08-2024 End: 07-08-2024 ambulatory [facility] Start: 07-04-2024 ambulatory [facility] Start: 06-23-2024 ambulatory [facility] Start: 06-11-2024 ambulatory [facility] Start: 05-16-[facility] Start[facility] 05-08-2024 ambulatory [facility] Start: 01-22-2023 ambulatory Nino Hughes ty:[facility] Start: 07-25-2022 End: 07-26-2022 ambulatory CRISSY KINGSLEY Facility:[facility] Start: 07-13-2022 End: 07-14-[address] CASSANDRA LONG Facility:[facility] Start: 11-11-[address] CASSANDRA LONG Fac ility:[facility] Start: 11-08-2021 End: 11-09-[address] CASSANDRA LONG Facility:[facility] Start: 11-04-2021 End: 11-05-[address] CASSANDRA LONG Facility:[facility] Start: 10-04-2021 ambulatory Nino BAE Facility :[facility] Start: 10-04-2021 End: 10-05-2021 ambulatory Nino BAE Facility:[facility] Start: 09-30-2021 End: 10-01-[address] RANDALL HEARD JR Facility:[facility] Start: 08-07-2019 End: 08-07-2019 Patient encounter procedure [facility] Start: 08-07-2019 End: 08-07-2019 Subsequent hospital visit by physician Enrique Mayers MD Work Phone: [facility] Comment on above: Post-op pain (Primar y Dx) Start: 08-07-2019 End: 08-10-2019 Patient encounter procedure [facility] Start: 08-07-2019 End: 08-09-2019 Subsequent hospital visit by physician Enrique Mayers MD Work Phone: [facility] Comment on above: Pain Start: 07-08-2019 End: 07-08-2019 Patient encounter procedure [facility] Start: 07-08-2019 End: 07-08-2019 Subsequent hospital visit by physician Enrique Mayers MD Work Phone: [facility] Start: 07-08-2019 End: 07-11-2019 Patient encounter procedure [facility] Start: 02-05-2018 End: 02-06-2018 Patient encounter SAM GREER Facility:[facility] Start: 01-11-2018 End: 01-12-2018 Patient encounter PROVIDER UNKNOWN Facility:[facility] Start: 01-10-2018 End: 01-11-2018 Patient encounter DEFAULT PHYSICIAN Facility:[facility] Procedures Date Procedure Procedure Detail Performing Clinician Start: 09-30-[address] CASSANDRA LONG Comment on above: Performed By: #### P SAD #### [facility] [address] [place] [address] Dr. Javy Brian Start: 08-07-2019 INCENTIVE SPIROMETRY [...] Office Visit Neurosurgery Enrique Mayers MD [address] [facility], [address] [place] [address] [id number] [employer] Start: 07-11-2019 End: 07-11-2019 Patient encounter procedure 07/11/2019 Office Visit Neurosurgery Enrique Mayers MD [address] [facility] [address], [address] [place] [address] [phone] [employer] Start: 03-30-2019 Influenza vaccination Flu vaccine (# 1) [facility] Phone: Start: 01-19-2019 Annual Wellness Visi t (AWV) Annual Wellness Visit (AWV) [facility] Phone: Start: 2011 Pneumococcal 65+ yea rs Vaccine (1 of 1 - PPSV23) Pneumococcal 65+ years Vaccine (1 of 1 - PPSV23) [facility] Phone: Start: 02-28-1996 Colon cancer screen colonoscopy Colon cancer screen colonoscopy [facility] Phone: Start: 02-28-1996 Shingles Vaccine (1 of 2) Lester gles Vaccine (1 of 2) [facility] Phone: Start: 1986 Lipid screen [facility] screen [facility] Work Phone: Start: 1957 DTaP/Tdap/Td vaccine (1 - Tdap) DTaP/Tdap/Td vaccine (1 - Tdap) [facility] Phone: Start: 1945 Hepatitis C screen Hepatitis C scree n [facility] Phone: EKG 12 Lead EKG 12 Lead ECG Routine 07/08/2019 12:00 PM EST [employer] Work Phone: Incentive spirometry [facility] Work Phone: Comment on above: Every 2hr while awak e until discontinued starting 07/08/2019 Every 2hr while awak e until discontinued starting 08/07/2019 Initiate Oxygen Ther apy Protocol [employer] Phone: Comment on above: Daily until disconti nued starting 07/08/2019 Daily until disconti nued starting 08/07/2019 Phase I & II - meter ed glucose [employer] Phone: Comment on above: As Needed until disc ontinued starting 07/08/2019 As Needed until disc ontinued starting 08/07/2019 End: 07-08-2019 Pulse Oximetry Spot Check Pulse Oximetry Spot Check Respiratory Care Routine One Time for 1 Occurrences starting 07/08/2019 until 07/08/2019 [employer] Phone: Comment on above: One Time for 1 Occur rences starting 07/08/2019 until 07/08/2019 End: 08-07-2019 Pulse Oximetry Spot Check Pulse Oximetry Spot Check Respiratory Care Routine One Time for 1 Occurrences starting 08/07/2019 until 08/07/2019 [employer] Phone: Comment on above: One Time for 1 Occur rences starting 08/07/2019 until 08/07/2019 Payers Date Payer Category Payer Unknown 2017 Medicare MEDICARE MEDICAR E PART A AND B xxxxxxxxxxx 2017-Present [phone] [address] [address] [place] [address] xxxxxxxxxxx [id number] 2017 Unknown [employer] M [employer] M[employer]UAL [address] xxxxxxxxxxxx 2017-Present [phone] [address] [place] [address] xxxxxxxxxxxx [id number] 2017 Medicare [id number] 1959 Medicare [id number] 1959 Self-pay 1959 Unknown [id number] 1946 Unknown [id number] [id number] .182 1946 Unknown [id number] 2.16.840.1.129547.3.579.2 .182 1946 Unknown [id number] 2.16.840.1.348700.3.579.2 .182 1946 Unknown [id number] 2.16.840.1.690233.3.579.2 .182 1946 Unknown [id number] 2.16.840.1.870467.3.579.2 .593 1946 Unknown [id number] 2.16.840.1.939567.3.579.2 .593 1946 Unknown [id number] 2.16.840.1.596264.3.579.2 .593 1946 Unknown [id number] 2.16.840.1.147515.3.579.2 .593 1946 Unknown [id number] 2.16.840.1.262709.3.579.2 .593 1946 Unknown [id number] 2.16.840.1.648940.3.579.2 .593 1946 Unknown [id number] 2.16.840.1.842086.3.579.2 .727 1945 Unknown [id number] 2.16.840.1.372466.3.579.2 .727 1946 Unknown [id number] 2.16.840.1.743818.3.579.2 .196 1945 Unknown [id number] 2.16.840.1.297751.3.579.2 .196 1945 Unknown [id number] 2.16.840.1.487908.3.579.2 .196 Medicare [id number] Private Health Insurance [id number] Social History Date Type Detail Facility Start: 07-07-2019 End: 08-08-2019 Tobacco smoking status LAIS Never smoker [facility] Phone: Start: 07-07-2019 End: 08-08-2019 Alcohol intake Current non-drinker of alcohol (finding) [facility] Phone: Sex Assigned At Not on file [facility] Phone: Start: 12-28-2015 Tobacco smoking status Ex-smoker (fi nding) [facility] Comment on above: 40 years ago Sexual Orientation [facility] Sex Assigned At Male [facility] Start: 12-09-2015 Sex Male (finding) [facility] Medical Equipment Procedure Code Equipment Code Equipment Origin al Text Equipment Identifier Dates Lead Trial Compc t Perc 1x8 [id number] Start: 07-08-2019 Stimulator Intel lis Adaptive Stim Mri - [id number] Start: 08-07-2019 Lead Pain 1x8 60 cm [employer]ris [id number] Start: 08-07-2019 Lead Pain 1x8 60 cm [employer] [id number] Start: 08-07-2019 Clinical Notes 07-08-2019 to 01-01-2025 Alexandra Cody RN - 08/07/2019 4:19 PM ESTOralia Jerez RN - 07/08/2019 3:27 PM Oralia Smith RN - 07/08/2019 3:08 PM Fouzia Talbert RN - 07/07/2019 2:25 PM EST Note Date & Type Note Facility 01-01-2025 Note Patient is here toda y in office for a wound check. S/P generator change on 12/25/2024 Patient denies fever or chills, small amount of pain 1/10 occasionally, Redness noted around Tegaderm. Small amount of discharge noted on bandage. Review of Systems Constitutional: Negative. [facility] 01-01-2025 Note OR Cardiology - [facility] Patient in clinic today for a [...] clinic in 2-3 months. Arelis Ridley APRN-[facility] Cardiovascular Ak (more content not included)... [facility] 12-25-2024 Note BiV-ICD GENERATOR RE PLACEMENT [...] weeks. Jose Angel Rey MD Cardiac Electrophysiology [facility] 12-25-2024 Note Patient: Indio blanca Procedure Information Date/Time: 12/25/241499 Procedure: Generator change ICD BiV - PC APPROVED Medtronic Location: [facility] HOME [facility]ERGY CONSULTANT 1 EP / [facility] HV VASCULAR LAB (Cath) Providers: Jose Angel Rey MD Clinical information reviewed: Allergies Meds Physical Exam Airway Mallampati: II TM distance: >3 FB Neck ROM: full Cardiovascular Dental Pulmonary Abdominal Anesthesia Plan ASA 3 CSE Anesthetic plan and risks discussed with patient. Use of blood products discussed with patient who. Additional Equipment Requests [facility] 12-25-2024 Note This report has been cancelled. [facility] 12-09-2024 Note OR Cardiology Note [facility] Reason for follow-up: [...] in follow up after recent admission to [facility] when he developed hypotension after [place] for urologic surgery. 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 He had a recent stress test at Dr Marcial's office which was negative. He has been maintained on coreg and Entresto maximum dosage for >4 months now. On his recent echocardiogram at [facility] there was reduced EF 30% and possible apical thrombus. A follow up echocardiogram with [facility] on 01/11/2018 showed EF 25% with [...] Date BACK SURGERY (more content not included)... [facility] 11-21-2024 Note Copy of Medtronic Op tiVol report 11/17/24 Margie Stack PA-C [facility] Cardiovascular Medicine [phone] [facility] 11-21-2024 Note Provider called pt a nd son today for concerns of worsening heart failure index noted on device interrogation. Pt states that he feels well, denied any water retention, leg edema, or weight gain. Denied worsening SOB or orthopnea. States he has actually lost about 20-30 pounds on purpose, and remains fairly active. Therefore, message sent to [facility] cardiology staff, Dr Long and Dr Rey with update of pt status, device at 3 month battery life and to monitor for upcoming device exchange for battery. Pt voiced understanding of red flag symptoms to call cardiology for- increased SOB, Orthopnea, weight gain, fatigue, or water retention. Melyssa Ernestina [facility] Cardiology Available 7a-3pm via [employer] [phone] [facility] 08-07-2019 History of Present illness Narrative disch inst and 2 presc given and explained to pt and son documented in this encounter [facility] Phone: 08-07-2019 Hospital Discharge instructions Alexandra Cody RN - 08/07/2019 Ice packs to the incision Shower on Sunday documented in this encounter [facility] Phone: 07-08-2019 History of Present illness Narrative [...] notified of above. documented in this encounter [employer] Phone: 07-08-2019 Hospital Discharge instructions Oralia Griffin RN - 07/08/2019 May shower and ambulate. Follow instructions of [employer] documented in this encounter [employer] Phone: Evaluation + Plan note No data available for this section [facility] Evaluation note Diagnosis Post-op pain- Primary Other acute postoperative pain documented in this encounter [employer] Phone: evaluation note* Diagnosis Pain Generalized pain documented in this encounter [employer] Phone: Hospital Discharge instructions No data available for this section [facility] Progress note No data available for this section 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 Advance Directives and Living Will Power of Professional Driver Reason for Referral Status Reason Specialty Diagnoses / Procedures Referred By Contact Referred To Contact Pending Review Radiology Diagnoses Pain Procedures Fluoro For Surgical Procedures Enrique Mayers MD [address], [address] [place] [address] Additional Source Comments (unrecognized sect ion and content) No Status Records FoundNo Status Records FoundNo Status Records FoundNo Status Records FoundNo Status Records FoundNo Status Records Found INFORMATION SOURCE (unrecogn ized section and content) DATE CREATED AUTHOR 02/12/2018 [facility] DATE CREATED AUTHOR AUTHOR'S ORGANIZ ATION 08/09/2019 [facility] DATE CREATED AUTHOR AUTHOR'S ORGANIZ ATION 07/28/2022 [facility] DATE CREATED AUTHOR AUTHOR'S ORGANIZ ATION [facility]20[facility] DATE CREATED AUTHOR AUTHOR'S ORGANIZ ATION 03/22/2025 [facility] DATE CREATED AUTHOR AUTHOR'S ORGANIZ ATION 04/06/2025 [facility] Reason for Visit (unrecogniz ed section and content) Status Reason Specialty Diagnoses / Procedures Referre d By Contact Referred To Contact Diagnoses RADICULOPATHY, STENOSIS, SPONDYLOSIS Procedures NV NJX DX/THER SBST INTRLMNR CRV/THRC W/IMG GDN D.C.S. (DORSAL COLUMN STIMULATOR) TRIAL 1 HOUR/ 1 C-ARM/ [facility] [employer] (PAT SAME DAY OF SURGERY) Enrique Mayers MD [address], [address] [place] [address] [facility] Status Reason Specialty Diagnoses / Procedures Referre d By Contact Referred To Contact Diagnoses Cervical spondylosis with myelopathy and radiculopathy RADICULOPATHY SPONDYLOSIS Procedures NV IMPLANT NEUROSTIM/FIELD ARTILLERY FIRE CONTROL MAN PERMANENT DCS (DORSAL COLUMN STIMULATOR)PLACEMENT, 1 HOUR/ 1 C-ARM/ [employer] [facility], *NEED MAGNET FOR PACEMAKER, PAT COMPLETED 07/08/19 Enrique Mayers MD [address], [address] [place] [address] [facility] Patient Care team informatio n (unrecognized section and content) Personnel Name: REN MARCIAL JR, DO Address: [address] [place] [id number] [facility]: FOR RECORDS PERTAINING TO PATIENTS WHO ARE [...] BE BASED ON THE PRIMARY CLINICAL RECORDS. [facility] [employer] [facility]. provides no warranty or guarantee of the accuracy or completeness of information in this document.
[2025-04-06 12:30] VITALS: BP 141/92; PULSE 71; TEMP 36.4; O2SAT 96
[2025-04-06 13:05] VITALS: PULSE 70; O2SAT 95
[2025-04-06 13:06] VITALS: BP 116/48
[2025-04-06 13:07] VITALS: BP 121/55; PULSE 72; O2SAT 94
[2025-04-06] MEDS: METHYLPREDNISOLONE ACETATE 40 MG/ML VIAL 80 MG INJ (13:15)
[2025-04-06] MEDS: BUPIVACAINE HCL 0.25% PF 25 MG/10 ML VIAL 4 ML INJ (13:15)
[2025-04-06] MEDS: LIDOCAINE HCL 2% 400 MG/20 ML MDV 16 ML INJ (13:15)
--- NOTE | 2025-04-06 13:20 | P.ON_ITS ---
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 The site was marked.? Written informed consent was obtained and placed on the chart.? The patient was brought to the medical procedure unit and placed in the prone position.? A timeout was completed verifying correct patient, procedure, positioning, and special requirements.? The skin overlying the target points, the designated medial branch, were prepped and draped in the usual sterile fashion.? The target point was achieved with a 20-gauge 15 cm with a 10 mm curved active tip radiofrequency cannula under direct fluoroscopic visualiza tion.? The needle was inserted at level L1 on the right side. Needle tip position was confirmed with lateral fluoroscopic position.? Motor stimulation was carried out at 2 Hz up to 5 volts with the absence of extremity activity.? This was repeated at level L2, 3 on right side.?? Sensory stimulation was carried out.? Concordant pain was realized at the above- mentioned sites.? Then radiofrequency lesioning was carried out times 90 seconds at 80 degrees times 2 lesions at each level.? The radiofrequency probe was removed prior to cannula removal.? The above-mentioned injectate was placed in 1 mL increments.? The needle was removed. The same procedure, with the same steps, was then completed on the left side at the same levels. Insertion sites were covered.? The patient was taken to the postoperative recovery area and monitored for an appropriate length of time before being found suitable for discharge in the company of a responsible adult. Anesthesia: Local Surgeon: Gill Coronado Pathology: none sent Condition: stable Disposition: no change
--- NOTE | 2025-04-06 14:08 | PC.NURSE ---
Joe from [employer] called (@[id number]) and cleared patient with [employer] report. No interference noted from RFA vs. pt's pacer device.
== END 2025-04-06 13:47 | disposition home or self-care (01) ==
LOC: SURGOUT 11:43
PROVIDERS: PCP Internal Medicine; Visit Provider Anesthesiology
DX: M47.816 Spondylosis without myelopathy or radiculopathy, lumbar region (principal); M54.50 Low back pain, unspecified
CPT/HCPCS: 64635; 64636; J0665; J1010

== ENCOUNTER 2025-05-07 07:56 | Outpatient (OUT) | payer MEDICARE, OTHER, SELFPAY ==
--- OUTSIDE RECORDS SUMMARY | 2025-05-07 08:17 | XMS_ITS | CCD ---
Author Organization [facility] Care Team Providers Care Religious Activities Director Name Role Phone PHYSICIAN, DEFAULT Unavailable Unavailable [...] Unavailable YANCY, ENRIQUE H. Attending Unavailable REN MRACIAL Primary Care Unavailable YANCY, ENRIQUE H. Attending [...] Unavailable ANIKET, DR SPRINGER Primary Care Unavailable ETHNA, DR TRUJILLO Consulting Unavailable Nino BAE Attending Unavailable KATHIA, Nino Garcia Attending Unavailable REN MARCIAL JR Primary Care Physician Ivonne MARTINEZ, Gill Thakkar Attending Unavailable Giedraitis , Gill Thakkar Attending Unavailable Gieditis , Gill Thakkar Attending Unavailable Giedremigio MARTINEZ, Gill Thakkar Attending Unavailable SAVITA, JOSE ANGEL Referring Unavailable [...] Referring Unavailable SAVITA, JOSE ANGEL Attending Unavailable ELVIS, EDUARD Referring Unavailable SAVITA, JOSE ANGEL Referring Unavailable SAVITA, JOSE ANGEL Referring Unavailable DAMIANARELIS Attending Unavailable SAVITA, JOSE ANGEL Admitting Unavailable SAVITA, JOSE ANGEL Attending Unavailable SAVITA, JOSE ANGEL Referring Unavailable SAVITA, JOSE ANGEL Referring Unavailable Allergies Allergy Classification Reported Allergen(s) Allergy Type Date of Onset Reaction(s) Facility (3 sources) tamsulosin Drug Allergy 06-30-2016 [facility] Repository (1 source) NO KNOWN DRUG ALLERGIES Drug allergy (disorder) 06-09-2009 [facility] Rep[facility] (3 sources) tamsulosin Drug Allergy 07-07-2019 [place] (3 sources) tamsulosin; Translations: [tamsulosin] Drug Allergy 02-03-2015 Hypotension [facility] Repository Medications Current Medications Medication Drug Class(es) Dates Sig (Normalized) Sig (Original) Acetaminophen / HYDROcodone (3 sources) Opioid Agonist Start: 08-07-2019 End: 08-07-2019 HYDROcodone-acetam inophen (NORCO) 5-325 MG per tablet 1 tablet Start: 07-08-2019 End: 07-08-2019 HYDROcodone-acetaminophen (N ORCO) 5-325 MG per tablet 1 tablet Start: 12-30-2015 [place] 325 mg-5 mg oral tablet 1 tab(s), [...] Onset: 02-05-2018 Chronic Other aftercare (1 source) detention (current) use of aspirin; Translations: [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) USE OF ASPIRIN] Onset: 02-05-2018 Episodic [...] Value Interpretation Reference Range Facility Orders Onlyon 04-27-2025 Orders Only [id number] Jose Guevara elham Whitaker 1945 [facility] Provider Department Center 04/27/2025 JOSE ANGEL ABRAMS [facility] Family History Problem Relation Age of Onset Stroke Father Family Status - Relation Status Age at Mother Father Brother Alive [facility] Orders Onlyon 03-27-2025 Orders Only [id number] Jose Guevara elham Whitaker 1945 [facility] Provider Department Center 03/27/2025 JOSE ANGEL ABRAMS [facility] Family History Problem Relation Age of Onset Stroke Father Family Status - Relation Status Age at Mother Father Brother Alive [facility] Office Visiton 01-01-2025 Follow-up visit [id number] Jose Guevara elham Whitaker 1945 [facility] Provider Department Center 01/01/2025 ARELIS PENA CARD [facility] Family History Problem Relation Age of Onset Stroke Father Family Status - Relation Status Age at Mother Father Brother Alive Level of Service:40674 MS POSTOP FOLLOW UP VISIT RELATED TO ORIGINAL PX [facility] HPon 12-25-2024 [facility] Cardiology Note [facility] Reason for follow-up: BiV ICD HPI: [...] in follow up after recent admission to [facility] when he developed hypotension after [place] for urologic surgery. He has history of non ischemic Cardiomyopathy and systolic heart failure with cath in 2007 at [facility] showing no significant CAD when his EF was 30%. He had a recent stress test at Dr Marcial's office which was negative. He has been maintained on coreg and Entresto maximum dosage for >4 months now. On his recent echocardiogram at [facility] there was reduced EF 30% and possible apical thrombus. A follow up echocardiogram with [facility] on 01/11/2018 showed EF 25% with [...] BACK SURGERY (more content not included)... Normal [facility] NURSNOTEon 12-25-2024 NURSNOTE RN educated pt on [...] off of unit with all of belongings. [facility] NURSNOTE CHG wipes and betadi ne nasal swabs completed. [facility] Orders Onlyon 12-25-2024 Orders Only [id number] Jose Guevara 1945 M Date Provider Department Center 12/25/2024 REINA FRAZIER [facility] [place] [facility] Family History Problem Relation Age of Onset Stroke Father Family Status - Relation Status Age at Mother Father Brother Alive [facility] Orders Onlyon 12-17-2024 Orders Only [id number] Jose Guevara 1945 M Date Provider Department Center 12/17/2024 JOSE ANGEL ABRAMS [facility]ARD [place] [facility] Family History Problem Relation Age of Onset Stroke Father Family Status - Relation Status Age at Mother Father Brother Alive [facility] Office Visiton 12-09-2024 Follow-up visit [id number] Jose Guevara 1945 M Date Provider Department Center 12/09/2024 JOSE ANGEL [facility] Family History Problem Relation Age of Onset Stroke Father Family Status - Relation Status Age at Mother Father Brother Alive Level of Service:19040 MS OFFICE/OUTPATIENT [facility] MDM 60 MINUTES Normal [facility] Documentationon 11-21-2024 Documentation [id number] oJse Guevara 1945 M Date Provider Department Center 11/21/2024 MELYSSA LEON [facility] [place] [facility] Family History Problem Relation Age of Onset Stroke Father Family Status - Relation Status Age at Father Reason for Visit and Comments: Congestive Heart Failure [127] Normal [facility] Orders Onlyon 11-17-2024 Orders Only [id number] Jose Guevara 1945 Date Provider Department Center 11/17/2024 AGUEDA STARKEY [facility] [place] [place] [facility] Family History Problem Relation Age of Onset Stroke Father Family Status - Relation Status Age at Father [facility] PROF CHEM 8 (BAS METB)on Anion gap [Moles/Vol] 9.4 mmol/L Normal [facility] Comment on above: Performed By: #### B MP #### [facility] [address] [address] [address] Javy Brian Calcium [Mass/Vol] 9.7 mg/dL Normal 8.5-10.1 [facility] Comment on above: Performed By: #### B MP #### [facility] [address] [address] [address] Javy Brian Chloride [Moles/Vol] 106 mmol/L Normal 98-107 [facility] Comment on above: Performed By: #### B MP #### [facility] [address] [address] [address] Javy Brian CO2 [Moles/Vol] 30.4 mmol/L Normal 21.0-32.0 [facility] Comment on above: Performed By: #### B MP #### [facility] [address] [address] [address] Javy Brian Creatinine [Mass/Vol] 1.46 mg/dL Critically high 0.70-1.30 [facility] Comment on above: Performed By: #### B MP #### [facility] [address] [address] [address] Javy Brian EGFR-AF GERMAN 57 mL/min/1.73m2 Critically low >=60 [facility] Comment on above: Performed By: #### B MP #### [facility] [address] [address] [address] Javy Brian EGFR-NON AF GERMAN 47 mL/min/1.73m2 Critically low >=60 [facility] Comment on above: Performed By: #### B MP #### [facility] [address] [address] [address] Javy Brian Glucose [Mass/Vol] 99 mg/dL Normal 74-106 [facility] Comment on above: Performed By: #### B MP #### [facility] [address] [address] [address] Javy Brian Potassium [Moles/Vol] 4.8 mmol/L Normal 3.5-5.1 [facility] Comment on above: Performed By: #### B MP #### [facility] [address] [address] [address] Javy Brian Sodium [Moles/Vol] 141 mmol/L Normal 136-145 [facility] Comment on above: Performed By: #### B MP #### [facility] [address] [address] [address] Javy Brian Urea nitrogen [Mass/Vol] 23.0 mg/dL Critically high 7.0-18.0 [facility] Comment on above: Performed By: #### B MP #### [facility] [address] [address] [address] Javy Brian Urea nitrogen/Creatinin e [Mass ratio] 15.8 mg/mg Normal [facility] Comment on above: Performed By: #### B MP #### [facility] [address] [address] [address] Javy Brian PROF CHEM 8 (BAS METB)on Anion gap [Moles/Vol] 10.7 mmol/L Normal [facility] Comment on above: Performed By: #### B MP #### [facility] [address] [place] [address] Dr. Javy Brian Calcium [Mass/Vol] 9.7 mg/dL Normal 8.5-10.1 [facility] Comment on above: Performed By: #### B MP #### [facility] [address] [place] [address] Dr. Javy Brian Chloride [Moles/Vol] 106 mmol/L Normal 98-107 [facility] Comment on above: Performed By: #### B MP #### [facility] [address] [place] [address] Dr. Javy Brian CO2 [Moles/Vol] 29.5 mmol/L Normal 21.0-32.0 [facility] Comment on above: Performed By: #### B MP #### [facility] [address] [place] [address] Dr. Javy Brian Creatinine [Mass/Vol] 1.79 mg/dL Critically high 0.70-1.30 [facility] Comment on above: Performed By: #### B MP #### [facility] [address] [place] [address] Dr. Javy Brian EGFR-AF GERMAN 45 mL/min/1.73m2 Critically low >=60 [facility] Comment on above: Performed By: #### B MP #### [facility] [address] [place] [address] Dr. Javy Brian EGFR-NON AF GERMAN 37 mL/min/1.73m2 Critically low >=60 [facility] Comment on above: Performed By: #### B MP #### [facility] [address] [place] [address] Dr. Javy Brian Glucose [Mass/Vol] 94 mg/dL Normal 74-106 [facility] Comment on above: Performed By: #### B MP #### [facility] [address] [place] [address] Dr. Javy Brian Potassium [Moles/Vol] 5.2 mmol/L Critically high 3.5-5.1 [facility] Comment on above: Performed By: #### B MP #### [facility] [address] [place] [address] Dr. Javy Brian Sodium [Moles/Vol] 141 mmol/L Normal 136-145 [facility] Comment on above: Performed By: #### B MP #### [facility] [address] [place] [address] Dr. Javy Brian Urea nitrogen [Mass/Vol] 34.0 mg/dL Critically high 7.0-18.0 [facility] Comment on above: Performed By: #### B MP #### [facility] [address] [place] [address] Dr. Javy Brian Urea nitrogen/Creatinin e [Mass ratio] 19.0 mg/mg Normal [facility] Comment on above: Performed By: #### B MP #### [facility] [address] [place] [address] Dr. Javy Brian PROF CHEM 8 ([facility] METB)on Anion gap [Moles/Vol] 12.0 mmol/L Normal [facility] Comment on above: Performed By: #### B MP #### [facility] [address] [place] [address] Dr. Javy Brian Calcium [Mass/Vol] 8.9 mg/dL Normal 8.5-10.1 [facility] Comment on above: Performed By: #### B MP #### [facility] [address] [place] [address] Dr. Javy Brian Chloride [Moles/Vol] 109 mmol/L Critically high 98-107 [facility] Comment on above: Performed By: #### B MP #### [facility] [address] [place] [address] Dr. Javy Brian CO2 [Moles/Vol] 29.0 mmol/L Normal 22.0-30.0 [facility] Comment on above: Performed By: #### B MP #### [facility] [address] [address] [address] Javy Brian Creatinine [Mass/Vol] 1.79 mg/dL Critically high 0.66-1.25 [facility] Comment on above: Performed By: #### B MP #### [facility] [address] [address] [address] Javy Brain EGFR-AF GERMAN 45 mL/min/1.73m2 Critically low >=60 [facility] Comment on above: Performed By: #### B MP #### [facility] [address] [address] [address] Javy Brian EGFR-NON AF GERMAN 37 mL/min/1.73m2 Critically low >=60 [facility] Comment on above: Performed By: #### B MP #### [facility] [address] [address] [address] Javy Brian Glucose [Mass/Vol] 92 mg/dL Normal 74-106 [facility] Comment on above: Performed By: #### B MP #### [facility] [address] [address] [address] Javy Brian Potassium [Moles/Vol] 5.0 mmol/L Normal 3.4-5.0 [facility] Comment on above: Performed By: #### B MP #### [facility] [address] [address] [address] Javy Brian Sodium [Moles/Vol] 145 mmol/L Normal 137-145 [facility] Comment on above: Performed By: #### B MP #### [facility] [address] [address] [address] Javy Brian Urea nitrogen [Mass/Vol] 35.0 mg/dL Critically high 7.0-18.0 [facility] Comment on above: Performed By: #### B MP #### [facility] [address] [address] [address] Javy Brian Urea nitrogen/Creatinin e [Mass ratio] 19.6 mg/mg Normal [facility] Comment on above: Performed By: #### B MP #### [facility] [address] [place] [address] Dr. Javy Brian CBC AUTO DIFFon 11-04-2021 BASO # 0.0 103/ul Normal 0.0-0.1 [facility] Comment on above: Performed By: #### C BC #### [facility] [address] [place] [address] Dr. Javy Brian Basophils/100 WBC (Bld) 0.7 % Normal 0.2-2.0 [facility] Comment on above: Performed By: #### C BC #### [facility] [address] [place] [address] Dr. Javy Brian EO # 0.2 103/ul Normal 0.0-0.7 [facility] Comment on above: Performed By: #### C BC #### [facility] [address] [place] [address] Dr. Javy Brian Eosinophils/100 WBC (Bld) 3.1 % Normal 0.9-7.0 [facility] Comment on above: Performed By: #### C BC #### [facility] [address] [place] [address] Dr. Javy Brian Erythrocyte distribution width (RBC) [Ratio] 14.3 % Normal 11.0-15.0 [facility] Comment on above: Performed By: #### C BC #### [facility] [address] [place] [address] Dr. Javy Brian Hematocrit (Bld) [Volume fraction] 43.5 % Normal 42.0-54.0 [facility] Comment on above: Performed By: #### C BC #### [facility] [address] [place] [address] Dr. Javy Brian Hemoglobin (Bld) [Mass/Vol] 13.7 g/dL Critically low 14.0-18.0 [facility] Comment on above: Performed By: #### C BC #### [facility] [address] [place] [address] Dr. Javy Brian IG # 0.01 10e3/ul Normal 0.00-0.03 [facility] Comment on above: Performed By: #### C BC #### [facility] [address] [place] [address] Dr. Javy Brian IG % 0.2 % Normal 0.0-0.5 [facility] Comment on above: Performed By: #### C BC #### [facility] [address] [place] [address] Dr. Javy Brian LYMPH # 1.4 103/ul Normal 1.2-3.8 [facility] Comment on above: Performed By: #### C BC #### [facility] [address] [place] [address] Dr. Javy Brian Lymphocytes/100 WBC (Bld) 23.6 % Normal 20.5-60.0 [facility] Comment on above: Performed By: #### C BC #### [facility] [address] [place] [address] Dr. Javy Brian MANUAL DIFF REQ NO Normal [facility] Comment on above: Performed By: #### C BC #### [facility] [address] [place] [address] Dr. Javy Brian MCH (RBC) [Entitic mass] 29.0 pg Normal 25.9-34.0 [facility] Comment on above: Performed By: #### C BC #### [facility] [address] [place] [address] Dr. Javy Brian MCHC (RBC) [Mass/Vol] 31.5 g/dL Normal 29.9-35.2 [facility] Comment on above: Performed By: #### C BC #### [facility] [address] [place] [address] Dr. Javy Brian MCV (RBC) [Entitic vol] 92.0 fL Normal 80.0-94.0 [facility] Comment on above: Performed By: #### C BC #### [facility] [address] [place] [address] Dr. Javy Brian MONO # 0.8 103/ul Normal 0.3-0.8 [facility] Comment on above: Performed By: #### C BC #### [facility] [address] [address] [address] Javy Brian Monocytes/100 WBC (Bld) 14.1 % Critically high 1.7-12.0 [facility] Comment on above: Performed By: #### C BC #### [facility] [address] [address] [address] Javy Brian NEUT # 3.4 103/ul Normal 1.4-6.5 [facility] Comment on above: Performed By: #### C BC #### [facility] [address] [place] [address] Dr. Javy Brian Neutrophils/100 WBC (Bld) 58.3 % Normal 43.0-75.0 [facility] Comment on above: Performed By: #### C BC #### [facility] [address] [place] [address] Dr. Javy Brian Platelet mean volume (Bld) [Entitic vol] 9.7 fL Normal 9.5-13.5 [facility] Comment on above: Performed By: #### C BC #### [facility] [address] [place] [address] Dr. Javy Brian PLT 113 103/ul Critically low 150-450 [facility] Comment on above: Performed By: #### C BC #### [facility] [address] [place] [address] Dr. Javy Brian RBC 4.73 106/ul Normal 4.70-6.10 [facility] Comment on above: Performed By: #### C BC #### [facility] [address] [place] [address] Dr. Javy Brian WBC 5.8 103/ul Normal 4.0-11.0 [facility] Comment on above: Performed By: #### C BC #### [facility] [address] [place] [address] Dr. Javy Brian PROF CHEM 8 (BAS METB)on Anion gap [Moles/Vol] 13.2 mmol/L Normal [facility] Comment on above: Performed By: #### B MP #### [facility] [address] [address] [address] Javy Brian Calcium [Mass/Vol] 9.1 mg/dL Normal 8.5-10.1 [facility] Comment on above: Performed By: #### B MP #### [facility] [address] [address] [address] Javy Brian Chloride [Moles/Vol] 110 mmol/L Critically high 98-107 [facility] Comment on above: Performed By: #### B MP #### [facility] [address] [address] [address] Javy Brian CO2 [Moles/Vol] 27.6 mmol/L Normal 22.0-30.0 [facility] Comment on above: Performed By: #### B MP #### [facility] [address] [address] [address] Javy Brian Creatinine [Mass/Vol] 1.61 mg/dL Critically high 0.66-1.25 [facility] Comment on above: Performed By: #### B MP #### [facility] [address] [address] [address] Javy Brian EGFR-AF GERMAN 51 mL/min/1.73m2 Critically low >=60 [facility] Comment on above: Performed By: #### B MP #### [facility] [address] [address] [address] Javy Brian EGFR-NON AF GERMAN 42 mL/min/1.73m2 Critically low >=60 [facility] Comment on above: Performed By: #### B MP #### [facility] [address] [address] [address] Javy Brian Glucose [Mass/Vol] 94 mg/dL Normal 74-106 [facility] Comment on above: Performed By: #### B MP #### [facility] [address] [address] [address] Javy Brian Potassium [Moles/Vol] 5.8 mmol/L Critically high 3.4-5.0 [facility] Comment on above: Performed By: #### B MP #### [facility] [address] [address] [address] Javy Brian Sodium [Moles/Vol] 145 mmol/L Normal 137-145 [facility] Comment on above: Performed By: #### B MP #### [facility] [address] [address] [address] Javy Brian Urea nitrogen [Mass/Vol] 27.0 mg/dL Critically high 7.0-18.0 [facility] Comment on above: Performed By: #### B MP #### [facility] [address] [address] [address] Javy Brian Urea nitrogen/Creatinin e [Mass ratio] 16.8 mg/mg Normal [facility] Comment on above: Performed By: #### B MP #### [facility] [address] [address] [address] Javy Brian Ambulatory Visit Summaryon 0 10-04-2021 Ambulatory Visit Summary INDIO GUEVARA :1945 Visit Date:10/04/2021 Ambulatory Visit Instructions Your Diagnosis BPH with urinary obstruction Personal history of kidney stones Tests Performed Urnls Dip Stick Auto w/o Microscopy POC 67919 Your Care Team Attending Physician - Félix Carter MD, Randall Espino Primary Care Physician - REN MARCIAL JR, DO This Is Your Medications List Contact prescribing physician if questions or concerns acetaminophen-hydrocodone ([place] 325 mg-5 mg oral tablet) allopurinol (allopurinol [...] MD, Randall Espino Where: [facility] Patient Educationon 10-05-19 Patient Education Urology Benign [...] Follow these instructions at home: ? Take [id number]-vuearwr and prescription medicines only as told by [...] You d (more content not included)... Normal [facility] Urology Office/Clinic Noteon 10-04-2021 Urology Office/Clinic Note Chief Complaint Follow up to PSA and KUB This patient is a 76-year-old male with a history of renal calculi and prostatic hyperplasia. He is here today for follow-up visit. He has a recent PSA for review. [facility] Staff [place] is a 2 month [...] Urnls Dip Stick Auto w/o Microscopy POC 89964 2. Personal history of kidney stones (Z87.442: Personal history of urinary calculi) s/p ESWL in 2017, no KUB done for today S/P Scrotal exploration done 01/09/18 Ordered: PSA Total Follow-up With When Contact Information Félix Carter MD, Randall Espino, URO Within 1 year Additional Instructions: w/psa Patient Education Benign Prostatic Hyperplasia IShakira personally scribed for Dr. Heard on 10/04/2021 [...] Tab, 12.5 (more content not included)... Normal [facility] Comment on above: Result Comment: Elec tronically Signed By: Randall Heard Jr., MD\.br\Date and Time Signed: 10/04/21 11:52 EST\.br\Electronically Co-Signed By: Shakira Emery MA\.br\Date and Time Co-Signed: 10/04/21 11:49 EST Lab Reportson 10-03-2021 Lab Reports [id number] Normal [facility] Fluoro For Surgical Procedur esOrdered By: Enrique Mayers on 08-08-2019 Impression: Fluorosc opic time 383.0 seconds. Spinal stimulating leads with leads at indeterminate spinal level. If there is clinical concern for desired level location, radiographs lumbar/thoracic spine recommended. [employer] Phone: Patient 1 : 1945 Age: 74 years Gender: Male Order Date: 08/07/2019 2:09 PM. Exam: FLUORO FOR SURGICAL PROCEDURES Number of Views: 2 Indication: Pain Comparison: None Findings: Spinal stimulating leads are noted with leads at indeterminate spinal level. Postoperative changes lower lumbar spine. [employer] Phone: [facility], Chpo Incoming R adiant Results From [employer] - 08/08/2019 8:50 AM EST Patient : [...] desired level location, radiographs lumbar/thoracic spine recommended. [employer] Phone: FLUORO FOR SURGICAL PROCEDUR ESon 08-07-2019 [...] 08/08/19 Final result Normal [facility] APTTOrdered By: Tone duron on 07-08-2019 aPTT Coag (Bld) [Time] 33.3 s [employer] Phone: Comment on above: Effective 02/13/2019: Please note methodology and/or reference ranges have changed. aPTT - Heparin Therapeutic Range: 74.0 - 106 seconds BASIC METABOLIC PANELOrdered By: Tone Redd on 07-08-2019 Anion gap [Moles/Vol] 13 mmol/L [employer] Phone: Calcium [Mass/Vol] 9.6 mg/dL 8.5 - 9.9 mg/dL [employer] Phone: Chloride [Moles/Vol] 107 mmol/L [employer] Phone: CO2 [Moles/Vol] 22 mmol/L [employer] Phone: Creatinine [Mass/Vol] 1.02 mg/dL 0.7 - 1.2 mg/dL [employer] Phone: GFR >60.0 >60 [employer] Phone: Comment on above: >60 mL/min/1.73m2 EG FR, calc. for ages 18 and older using the MDRD formula (not corrected for weight), is valid for stable renal function. GFR Non- >60.0 >60 [employer] Phone: Comment on above: >60 mL/min/1.73m2 EG FR, calc. for ages 18 and older using the MDRD formula (not corrected for weight), is valid for stable renal function. Glucose [Mass/Vol] 98 mg/dL 70 - 99 mg/dL [facility] Phone: Potassium [Moles/Vol] 4.5 mmol/L [facility] Phone: Sodium [Moles/Vol] 142 mmol/L [facility] Phone: Urea nitrogen [Mass/Vol] 21 mg/dL 8 - 23 mg/dL [facility] Phone: Basic Metabolic Panelon 12- Anion gap [Moles/Vol] 13 mmol/L Normal 9-15 [facility] Comment on above: Performed By: #### B MP #### [facility] [address] [place] [address] Calcium [Mass/Vol] 9.6 mg/dL Normal 8.5-9.9 [facility] Comment on above: Performed By: #### B MP #### [facility] [address] [place] [address] Chloride [Moles/Vol] 107 mmol/L Normal 95-107 [facility] Comment on above: Performed By: #### B MP #### [facility] [address] [place] [address] CO2 [Moles/Vol] 22 mmol/L Normal 20-31 [facility] Comment on above: Performed By: #### B MP #### [facility] [address] [place] [address] Creatinine [Mass/Vol] 1.02 mg/dL Normal 0.70-1.20 [facility] Comment on above: Performed By: #### B MP #### [facility] [address] [place] [address] GFR/1.73 sq M predicted among blacks MDRD (S/P/Bld) [Vol rate/Area] mL/min/{1.73_m2} Normal >60 [facility] Comment on above: Result Comment: >60 mL/min/1.73m2 EGFR, calc. for ages 18 and older using the MDRD formula (not corrected for weight), is valid for stable renal function. Performed By: #### B MP #### [facility] [address] [place] [address] GFR/1.73 sq M.predicted MDRD (S/P/Bld) [Vol rate/Area] mL/min/{1.73_m2} Normal >60 [facility] Comment on above: Result Comment: >60 mL/min/1.73m2 EGFR, calc. for ages 18 and older using the MDRD formula (not corrected for weight), is valid for stable renal function. Performed By: #### B MP #### [facility] [address] [place] [address] Glucose [Mass/Vol] 98 mg/dL Normal 70-99 [facility] Comment on above: Performed By: #### B MP #### [facility] [address] [place] [address] Potassium [Moles/Vol] 4.5 mmol/L Normal 3.4-4.9 [facility] Comment on above: Performed By: #### B MP #### [facility] [address] [place] [address] Sodium [Moles/Vol] 142 mmol/L Normal 135-144 [facility] Comment on above: Performed By: #### B MP #### [facility] [address] [place] [address] Urea nitrogen [Mass/Vol] 21 mg/dL Normal 8-23 [facility] Comment on above: Performed By: #### B MP #### [facility] [address] [place] [address] CBCOrdered By: Tone bo on 07-08-2019 Erythrocyte distribution width (RBC) [Ratio] 14.0 % 11.5 - 14.5 % [facility] Phone: Hematocrit (Bld) [Volume fraction] 42.1 % 42 - 52 % [facility] Phone: Hemoglobin (Bld) [Mass/Vol] 14.1 g/dL 14 - 18 g/dL [employer] Phone: MCH (RBC) [Entitic mass] 29.9 pg 27 - 31.3 pg [employer] Phone: MCHC 33.6 % 33 - 37 % [employer] Phone: MCV (RBC) [Entitic vol] 89.0 fL 80 - 100 fL [employer] Phone: Platelets (Bld) [#/Vol] 140 10*3/uL 130 - 400 K/uL [employer] Phone: RBC (Bld) [#/Vol] 4.73 10*6/uL [employer] Phone: WBC (Bld) [#/Vol] 5.7 10*3/uL 4.8 - 10.8 K/uL [employer] Phone: CBC With Platelet No Differe ntialon 07-08-2019 Erythrocyte distribution width (RBC) [Ratio] 14.0 % Normal 11.5-14.5 [facility] Comment on above: Performed By: #### C BCND #### [facility] [address] [place] [address] Hematocrit (Bld) [Volume fraction] 42.1 % Normal 42.0-52.0 [facility] Comment on above: Performed By: #### C BCND #### [facility] [address] [place] [address] Hemoglobin (Bld) [Mass/Vol] 14.1 g/dL Normal 14.0-18.0 [facility] Comment on above: Performed By: #### C BCND #### [facility] [address] [place] [address] MCH (RBC) [Entitic mass] 29.9 pg Normal 27.0-31.3 [facility] Comment on above: Performed By: #### C BCND #### [facility] [address] [place] [address] MCHC (RBC) [Mass/Vol] 33.6 % Normal 33.0-37.0 [facility] Comment on above: Performed By: #### C BCND #### [facility] [address] [place] [address] MCV (RBC) [Entitic vol] 89.0 fL Normal 80.0-100.0 [facility] Comment on above: Performed By: #### C BCND #### [facility] [address] [place] [address] Platelets (Bld) [#/Vol] 140 10*3/uL Normal 130-400 [facility] Comment on above: Performed By: #### C BCND #### [facility] [address] [place] [address] RBC (Bld) [#/Vol] 4.73 10*6/uL Normal 4.70-6.10 [facility] Comment on above: Performed By: #### C BCND #### [facility] [address] [place] [address] WBC (Bld) [#/Vol] 5.7 10*3/uL Normal 4.8-10.8 [facility] Comment on above: Performed By: #### C BCND #### [facility] [address] [place] [address] FLUORO FOR SURGICAL PROCEDUR ESon 07-08-2019 FLUORO [...] 07/09/19 Final result Normal [facility] PROTIME-INROrdered By: Carlos Redd on 07-08-2019 INR Coag (PPP) [Relative time] 1.1 {INR} [employer] Phone: Comment on above: Warfarin Therapy INR Therapeutic: 2.0-3.0 With Mechanical Valve: >2.5 Low-intensity Therapeutic Range: 1.5-2.0 Mod-intensity Therapeutic Range: 2.0-3.0 High-intensity Therapeutic Range: 2.5-3.5 HIgh-intensity Therapeutic Range: 3.0-4.0 Common Critical/Alarm Value: 5.0 Common Upper Limit Reported: 10.0 Effective 02/06/2019: Please note methodology and/or reference ranges have changed. PT Coag (PPP) [Time] 14.1 s [facility] Phone: Comment on above: Effective 02/06/19 Please note methodology and/or reference ranges have changed. Partial Thromboplastin Timeo n 07-08-2019 aPTT Coag (Bld) [Time] 33.3 s Normal 24.4-36.8 [facility] Comment on above: Result Comment: Effe ctive 02/13/2019: Please note methodology and/or reference ranges have changed. aPTT - Heparin Therapeutic Range: 74.0 - 106 seconds Performed By: #### P TT #### [facility] [address] [facility] [address] Prothrombin Timeon 9 INR Coag (PPP) [Relative time] 1.1 {INR} Normal [facility] Comment on above: Result Comment: Warf jessika Therapy INR Therapeutic: 2.0-3.0 With Mechanical Valve: >2.5 Low-intensity Therapeutic Range: 1.5-2.0 Mod-intensity Therapeutic Range: 2.0-3.0 High-intensity Therapeutic Range: 2.5-3.5 HIgh-intensity Therapeutic Range: 3.0-4.0 Common Critical/Alarm Value: 5.0 Common Upper Limit Reported: 10.0 Effective 02/06/2019: Please note methodology and/or reference ranges have changed. Performed By: #### P T #### [facility] [address] [place] [address] PT Coag (PPP) [Time] 14.1 s Normal 12.3-14.9 [facility] Comment on above: Result Comment: Effe ctive 02/06/19 Please note methodology and/or reference ranges have changed. Performed By: #### P T #### [facility] [address] [place] [address] CHEST AND LATERALon 02-07-20 18 [facility] [place] [address] Patient Name: INDIO GUEVARA : 1945Sex: MAge: Race: WhiteMRN: [id number]. Location: OUTPPatient Status: DVisit #: [id number] Date: 02/06/2018 7:00:00 AMCompleted Date: 02/06/2018 09:23 AMRequesting Provider: SARINA GUZMAN Attending Provider: SAM GREER Report Copy To: Signs & Symptoms: Post Pacemaker/AICD PlacementHistory: Patient history not availableComments: Check Pacemaker/AICD Lead Position, Chest X-ray PA \EANDE\ LAT in Dept ;DO NOT lift affected arm above shoulder. S/P pacemaker/ICD implant. Verify lead placementExam: CHEST AND LATERALAccession #: [id number] CHEST AND LATERAL 02/06/2018 9:23 AM EDT [...] atelectasis Electronically signed by:Florence Vinson. Transcribed by: [email or web address], User Resident: Electronically Signed by: FLORENCE VINSON @ 02/06/2018 02:44 PM Normal [facility] Comment on above: Order Comment: Check Pacemaker/AICD Lead Position, Chest X-ray PA \EANDE\ LAT in Dept ;DO NOT lift affected arm above shoulder. S/P pacemaker/ICD implant. Verify lead placement Cardiovascular Lab Reporton 02-06-2018 Cardiovascular Lab Report [facility] Patient Name: Indio Guevara [facility] MR #: [id number] Physician: Sam MasonDepartment of Stiven GreerMedicine Service Date: 02/05/2018Division of Birthdate: 6Cardiology Room #: 3CD [id number] CardiovascularServicesUniversit y [address] [place], [place] [address]Gxmvf Fax Cardiovascular Laboratory ReportINDICATION: Mr. Indio Guevara is a 72-year-old gentleman, who I saw inthe [place] office. He sees Dr. Long. He was referred for a CRTDprocedure. He has ejection fraction of 20% to 25%, chronic low ejectionfraction as well, he has a left bundle-branch block with a QRS duration ofapproximately 170 milliseconds.I saw him in the [place] office, went over the procedure, risks andbenefits [...] tethered with 0 silk.At that point, a 10-Latvian docking station was placed.A long sheath with [...] minutes of fluoroscopy. The device was a [id number], serial number [id number]. The atrial lead is a Medtronic [id number]. The ventricular lead is a Medtronic [id number] [id number]. The leftventricular lead is a Medtronic [id number], serial number [id number].Sensed P and R waves were 3.5 mV [...] 02/05/2018/01:25 P/Sam Greer M.D.Date Trans: 02/06/2018 06:47 A/[id number]: Ren Marcial D.O. [address] [place] [address] [facility] Vital Signs Date Time Vital Sign Value Performing Clinician Faci lity 08-07-2019 16:25-0500 Diastolic blood pressure 78 mm[Hg] Enrique Mayers MD Work Phone: [facility] [employer] Work Phone: 08-07-2019 16:25-0500 Heart rate 78 /min Enrique Mayers MD Work Phone: [employer] Work Phone: 08-07-2019 16:25-0500 Respiratory rate 20 /min Enrique Mayers MD Work Phone: [employer] Work Phone: 08-07-2019 16:25-0500 SaO2% (BldA) [Mass fraction] 95 % Enrique Mayers MD Work Phone: [employer] Work Phone: 08-07-2019 16:25-0500 Systolic blood pressure 148 mm[Hg] Enrique Mayers MD Work Phone: [employer] Work Phone: 08-07-2019 10:51-0500 Body height 184.2 cm Enrique Mayers MD Work Phone: [employer] Work Phone: 08-07-2019 10:51-0500 Body mass index (BMI) [Ratio] 34.78 kg/m2 Enrique Mayers MD Work Phone: [employer] Work Phone: 08-07-2019 10:51-0500 Body temperature 97.59 [degF] Enrique Mayers MD Work Phone: [employer] Work Phone: 08-07-2019 10:51-0500 Body weight 117.94 kg Enrique Mayers MD Work Phone: [employer] Work Phone: 07-08-2019 15:25-0500 Body temperature 98.01 [degF] Enrique Mayers MD Work Phone: [employer] Work Phone: 07-08-2019 15:25-0500 Diastolic blood pressure 94 mm[Hg] Enrique Mayers MD Work Phone: [employer] Work Phone: 07-08-2019 15:25-0500 Heart rate 78 /min Enrique Mayers MD Work Phone: [employer] Work Phone: 07-08-2019 15:25-0500 Respiratory rate 16 /min Enrique Mayers MD Work Phone: [employer] Work Phone: 07-08-2019 15:25-0500 SaO2% (BldA) [Mass fraction] 97 % Enrique Mayers MD Work Phone: [employer] Work Phone: 07-08-2019 15:25-0500 Systolic blood pressure 158 mm[Hg] Enrique Mayers MD Work Phone: [employer] Work Phone: 07-08-2019 11:45-0500 Body height 182.9 cm Enrique Mayers MD Work Phone: [employer] Work Phone: 07-08-2019 11:45-0500 Body mass index (BMI) [Ratio] 35.26 kg/m2 Enrique Mayers MD Work Phone: [employer] Work Phone: 07-08-2019 11:45-0500 Body weight 117.94 kg Enrique Mayers MD Work Phone: [employer] Work Phone: Encounters Encounter Date Encounter Type Care Provider Facility Start: 04-30-2025 ambulatory [facility] Start: 04-06-2025 End: 04-06-2025 ambulatory Gill Coronado MD Facility: [facility] Start: 03-31-2025 ambulatory [facility] Start: 03-16-2025 End: 03-16-2025 ambulatory Gill Coronado MD Facility: [facility] Start: 03-05-2025 ambulatory EDUARD LE[facility] Start: 03-02-2025 End: 03-02-2025 ambulatory Gill Coronado MD Facility: [facility] Start: 02-17-2025 End: 02-17-2025 ambulatory [facility] Start: 01-26-2025 End: 01-26-2025 ambulatory Gill Coronado MD Facility:[facility] Start: 01-01-2025 End: 01-01-20[facility]: 12-25-2024 End: 12-25-2024 ambulatory [facility] Start: 12-09-2024 End: 12-09-2024 ambulatory [facility] Start: 12-01-2024 End: 12-31-2024 Pre-admission assessment M[facility] MORALES COREY [facility] Start: 11-20-2024 ambulatory [facility] Start: 10-28-2024 ambulatory [facility] Start: 10-21-2024 ambulatory [facility] Start: 09-17-2024 ambulatory [facility] Start: 09-17-2024 Encounter for preprocedural cardiovascular examination [facility] Start: 08-19-2024 ambulatory [facility] Start: 07-31-2024 ambulatory [facility] Start: 07-25-2024 ambulatory [facility] Start: 07-08-2024 End: 07-08-2024 ambulatory [facility] Start: 07-04-2024 ambulatory [facility] Start: 06-23-2024 ambulatory [facility] Start: 06-11-2024 ambulatory [facility] Start: 05-16-2024 ambulatory [facility] Start: 05-08-2024 ambulatory [facility] Start: 01-22-2023 ambulatory [facility]ino [place] ty:[facility] Start: 07-25-2022 End: 07-26-2022 ambulatory CRISSY BURKSMAGDA Facility:[facility] Start: 07-13-2022 End: 07-14-[address] CASSANDRA LONG Facility:[facility] Start: 11-11-[address] CASSANDRA LONG Fac ility:[facility] Start: 11-08-2021 End: 11-09-[address] CASSANDRA LONG Facility:[facility] Start: 11-04-2021 End: 11-05-[address] CASSANDRA LONG Facility:[facility] Start: 10-04-2021 ambulatory Nino BAE Facility : [facility] Start: 10-04-2021 End: 10-05-2021 ambulatory Nino BAE Facility:[facility] [place] Start: 09-30-2021 End: 10-01-[address] RANDALL HEARD JR Facility:[facility] Start: 08-07-2019 End: 08-07-2019 Patient encounter procedure [facility] Start: 08-07-2019 End: 08-07-2019 Subsequent hospital visit by physician Enrique Mayers MD Work Phone: [facility] [facility] Comment on above: Post-op pain (Primar y Dx) Start: 08-07-2019 End: 08-10-2019 Patient encounter procedure [facility] Start: 08-07-2019 End: 08-09-2019 Subsequent hospital visit by physician Enrique Mayers MD Work Phone: [facility] Comment on above: Pain Start: 07-08-2019 End: 07-08-2019 Patient encounter procedure [facility] Start: 07-08-2019 End: 07-08-2019 Subsequent hospital visit by physician Enrique Mayers MD Work Phone: [facility] Start: 07-08-2019 End: 07-11-2019 Patient encounter procedure [facility] Start: 02-05-2018 End: 02-06-2018 Patient encounter SAM GREER Facility:[facility] Start: 01-11-2018 End: 01-12-2018 Patient encounter PROVIDER UNKNOWN Facility:[facility] Start: 01-10-2018 End: 01-11-2018 Patient encounter DEFAULT PHYSICIAN Facility:[facility] Procedures Date Procedure Procedure Detail Performing Clinician Start: 09-30-[address] CASSANDRA LONG Comment on above: Performed By: #### P SAD #### [facility] [address] [address] [address] Javy Brian Start: 08-07-2019 INCENTIVE SPIROMETRY [...] of calculus of kidney MRS. MORALES LAZARTZ H/O Spinal surgery MRS. MORALES LAZARTZ Herniated structure (morphologic abnormality) MRS. MORALES COERY Plan of Treatment Date Care Activity Detail Author Start: 08-22-2019 End: 08-22-2019 Patient encounter procedure 08/22/2019 Office Visit Neurosurgery Enrique Mayers MD [address], [address] [place] [address] [employer] Start: 07-11-2019 End: 07-11-2019 Patient encounter procedure 07/11/2019 Office Visit Neurosurgery Enrique Mayers MD [address], [address] [place] [address] [employer] Start: 03-30-2019 Influenza vaccination Flu vaccine (# 1) [employer] Phone: Start: 01-19-2019 Annual Wellness Visi t (AWV) Annual Wellness Visit (AWV) [employer] Phone: Start: 2011 Pneumococcal 65+ yea rs Vaccine (1 of 1 - PPSV23) Pneumococcal 65+ years Vaccine (1 of 1 - PPSV23) [employer] Phone: Start: 02-28-1996 Colon cancer screen colonoscopy Colon cancer screen colonoscopy [employer] Phone: Start: 02-28-1996 Shingles Vaccine (1 of 2) Lester gles Vaccine (1 of 2) [employer] Phone: Start: 1986 Lipid screen Lipid screen [employer] Phone: Start: 1957 DTaP/Tdap/Td vaccine (1 - Tdap) DTaP/Tdap/Td vaccine (1 - Tdap) [employer] Phone: Start: 1945 Hepatitis C screen Hepatitis C scree n [employer] Phone: EKG 12 Lead EKG 12 Lead ECG Routine 07/08/2019 12:00 PM EST [employer] Phone: Incentive spirometry Mere Leahy ealt Work Phone: Comment on above: Every 2hr while awak e until discontinued starting 07/08/2019 Every 2hr while awak e until discontinued starting 08/07/2019 Initiate Oxygen Ther apy Protocol [employer] Phone: Comment on above: Daily until disconti nued starting 07/08/2019 Daily until disconti nued starting 08/07/2019 Phase I & II - meter ed glucose [employer] Phone: Comment on above: As Needed until disc ontinued starting 07/08/2019 As Needed until disc ontinued starting 08/07/2019 End: 07-08-2019 Pulse Oximetry Spot Check Pulse Oximetry Spot Check Respiratory Care Routine One Time for 1 Occurrences starting 07/08/2019 until 07/08/2019 [employer] Phone: Comment on above: One Time for 1 Occur rences starting 07/08/2019 until 07/08/2019 End: 08-07-2019 Pulse Oximetry Spot Check Pulse Oximetry Spot Check Respiratory Care Routine One Time for 1 Occurrences starting 08/07/2019 until 08/07/2019 [employer] Phone: Comment on above: One Time for 1 Occur rences starting 08/07/2019 until 08/07/2019 Payers Date Payer Category Payer Unknown 2017 Medicare MEDICARE MEDICAR E PART A AND B xxxxxxxxxxx 2017-Present [phone] [address] [address] [place] [address] xxxxxxxxxxx [id number] 2017 Unknown [employer] M [employer] [address] xxxxxxxxxxxx 2017-Present [phone] [address] [place] [address] xxxxxxxxxxxx [id number] 2017 Medicare [id number] 1959 Medicare [id number] 1959 Self-pay 1959 Unknown [id number] 1945 Unknown [id number] [id number] .182 1945 Unknown [id number] 2.16.840.1.529667.3.579.2 .182 1945 Unknown [id number] 2.16.840.1.331494.3.579.2 .182 1945 Unknown [id number] 2.16.840.1.597180.3.579.2 .182 1945 Unknown [id number] 2.16.840.1.423869.3.579.2 .593 1945 Unknown [id number] 2.16.840.1.874821.3.579.2 .593 1945 Unknown [id number] 2.16.840.1.976813.3.579.2 .593 1945 Unknown [id number] 2.16.840.1.531981.3.579.2 .593 1945 Unknown [id number] 2.16.840.1.134535.3.579.2 .593 1946 Unknown [id number] 2.16.840.1.881121.3.579.2 .593 1945 Unknown [id number] 2.16.840.1.970938.3.579.2 .727 1945 Unknown [id number] 2.16.840.1.745366.3.579.2 .727 1945 Unknown [id number] 2.16.840.1.471262.3.579.2 .196 1945 Unknown [id number] 2.16.840.1.712171.3.579.2 .196 1945 Unknown [id number] 2.16.840.1.274620.3.579.2 .196 1945 Unknown [id number] 2.16.840.1.015583.3.579.2 .196 Medicare [id number] Private Health Insurance [id number] Social History Date Type Detail Facility Start: 07-07-2019 End: 08-08-2019 Tobacco smoking status NHIS Never smoker [employer] Phone: Start: 07-07-2019 End: 08-08-2019 Alcohol intake Current non-drinker of alcohol (finding) [employer] Phone: Sex Assigned At Not on file [employer] Phone: Start: 12-28-2015 Tobacco smoking status Ex-smoker (fi nding) [facility] Comment on above: 40 years ago Sexual Orientation [facility] Sex Assigned At Male [facility] Start: 12-09-2015 Sex Male (finding) [facility] Medical Equipment Procedure Code Equipment Code Equipment Origin al Text Equipment Identifier Dates Lead Trial Compc t Perc 1x8 [id number] Start: 07-08-2019 Stimulator Intel lis Adaptive Stim Mri - [id number] Start: 08-07-2019 Lead Pain 1x8 60 cm Vectris [id number] Start: 08-07-2019 Lead Pain 1x8 60 cm Vectris [id number] Start: 08-07-2019 Clinical Notes 07-08-2019 to 01-01-2025 Alexandra Cody RN - 08/07/2019 4:19 PM Oralia Nolasco RN - 07/08/2019 3:27 PM Oralia Smith RN - 07/08/2019 3:08 PM Fouzia Talbert RN - 07/07/2019 2:25 PM EST Note Date & Type Note Facility 01-01-2025 Note [place] Cardiology - [facility] Patient in clinic today [...] Follow-up in clinic in 2-3 months. Arelis Ridely APRN-PRODUCT MARKETING INTERN [facility] Cardiovascular [place] (more content not included)... [facility] 01-01-2025 Note Patient is here toda y in office for a wound check. S/P generator change on 12/25/2024 Patient denies fever or chills, small amount of pain 1/10 occasionally, Redness noted around Tegaderm. Small amount of discharge noted on bandage. Review of Systems Constitutional: Negative. [facility] 12-25-2024 Note BiV-ICD GENERATOR RE PLACEMENT [...] weeks. Jose Angel Rey MD Cardiac Electrophysiology [facility] 12-25-2024 Note Patient: Indio blanca Procedure Information Date/Time: 12/25/241499 Procedure: Generator change ICD BiV - PC APPROVED Medtronic Location: [facility] EAP SPECIALIST 1 / [facility] HV VASCULAR LAB (Cath) Providers: Jose Angel Rey MD Clinical information reviewed: Allergies Meds Physical Exam Airway Mallampati: II TM distance: >3 FB Neck ROM: full Cardiovascular Dental Pulmonary Abdominal Anesthesia Plan ASA 3 CSE Anesthetic plan and risks discussed with patient. Use of blood products discussed with patient who. Additional Equipment Requests [facility] 12-25-2024 Note This report has been cancelled. [facility] 12-09-2024 Note [place] Cardiology [facility] Reason for follow-up: [...] in follow up after recent admission to [facility] when he developed hypotension after GA for urologic surgery. He has history of non ischemic Cardiomyopathy and systolic heart failure with cath in 2007 at [facility] showing no significant CAD when his EF was 30%. He had a recent stress test at Dr Marcial's office which was negative. He has been maintained on coreg and Entresto maximum dosage for >4 months now. On his recent echocardiogram at [facility] there was reduced EF 30% and possible [...] Date BACK SURGERY (more content not included)... [facility] 11-21-2024 Note Copy of Medtronic Op tiVol report 11/17/24 Margie Stack PA-C [facility] Cardiovascular Medicine [phone] [facility] 11-21-2024 Note Provider called pt a nd son today for concerns of worsening heart failure index noted on device interrogation. Pt states that he feels well, denied any water retention, leg edema, or weight gain. Denied worsening SOB or orthopnea. States he has actually lost about 20-30 pounds on purpose, and remains fairly active. Therefore, message sent to [place] cardiology staff, Dr Long and Dr Rey with update of pt status, device at 3 month battery life and to monitor for upcoming device exchange for battery. Pt voiced understanding of red flag symptoms to call cardiology for- increased SOB, Orthopnea, weight gain, fatigue, or water retention. Melyssa Do [facility] Cardiology Available 7a-3pm via [employer] [phone] [facility] 08-07-2019 History of Present illness Narrative disch inst and 2 presc given and explained to pt and son documented in this encounter [employer] Phone: 08-07-2019 Hospital Discharge instructions Alexandra Cody RN - 08/07/2019 Ice packs to the incision Shower on Sunday documented in this encounter [employer] Phone: 07-08-2019 History of Present illness Narrative Dc instructions given to pt and son, verbalized understanding, pt up to bathroom with assist and tolerated well, pt voided, denies nausea, iv dc'd, pt getting dressed Pt eating pretzels and drinking soda, tolerating well medtronic in talking with pt and family Dr mayers in room talking with pt and son Per Nicolas ANTOINE in OR only magnet is needed for [...] notified of above. documented in this encounter [employer]: 07-08-2019 Hospital Discharge instructions Oralia Griffin RN - 07/08/2019 May shower and ambulate. Follow instructions of medtronic documented in this encounter [employer] Phone: Evaluation + Plan note No data available for this section [facility] Evaluation note Diagnosis Post-op pain- Primary Other acute postoperative pain documented in this encounter [employer] Phone: evaluation note* Diagnosis Pain Generalized pain documented in this encounter [employer] Phone: Hospital Discharge instructions No data available for this section [facility] Progress note No data available for this section [facility] Summary Purpose Family History No Family History Records FoundNo Family History Records FoundNo Family History Records FoundNo Family History Records Found No data available for this section No Family History Records FoundNo Family History Records Found Advance Directives No Advanced Directives Records FoundDocuments on File Type Date Recorded 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, [address] [place] [address] Additional Source Comments (unrecognized sect ion and content) No Status Records FoundNo Status Records FoundNo Status Records FoundNo Status Records FoundNo Status Records FoundNo Status Records Found INFORMATION SOURCE (unrecogn ized section and content) DATE CREATED AUTHOR 02/12/2018 [facility] DATE CREATED AUTHOR AUTHOR'S ORGANIZ ATION 08/09/2019 [facility] DATE CREATED AUTHOR AUTHOR'S ORGANIZ ATION 07/28/2022 [facility] DATE CREATED AUTHOR AUTHOR'S ORGANIZ ATION 09/22/2022 [facility] DATE CREATED AUTHOR AUTHOR'S ORGANIZ ATION 04/12/2025 [facility] DATE CREATED AUTHOR AUTHOR'S ORGANIZ ATION 05/04/2025 [facility] Reason for Visit (unrecogniz ed section and content) Status Reason Specialty Diagnoses / Procedures Referre d By Contact Referred To Contact Diagnoses RADICULOPATHY, STENOSIS, SPONDYLOSIS Procedures MS NJX DX/THER SBST INTRLMNR CRV/THRC W/IMG GDN D.C.S. (DORSAL COLUMN STIMULATOR) TRIAL 1 HOUR/ 1 C-ARM/ [facility] [employer] (PAT SAME DAY OF SURGERY) Enrique Mayers MD [address], [address] [place] [address] [place] Status Reason Specialty Diagnoses / Procedures Referre d By Contact Referred To Contact Diagnoses Cervical spondylosis with myelopathy and radiculopathy RADICULOPATHY SPONDYLOSIS Procedures MS IMPLANT NEUROSTIM/WINDOW CLEANER PERMANENT DCS (DORSAL COLUMN STIMULATOR)PLACEMENT, 1 HOUR/ 1 C-ARM/ [employer] [facility], *NEED MAGNET FOR PACEMAKER, PAT COMPLETED 07/08/19 Enrique Mayers MD [address], [address] [place] [address] [facility] [employer] Patient Care team informatio n (unrecognized section and content) Personnel Name: REN MARCIAL JR, DO Address: [address] [place] [id number] [employer]: FOR RECORDS PERTAINING TO PATIENTS WHO [...] BE BASED ON THE PRIMARY CLINICAL RECORDS. [employer] provides no warranty or guarantee of the accuracy or completeness of information in this document.
--- NOTE | 2025-05-07 08:19 | PM.CN ---
Consult Note: HPI Data of Consult Patient: known to practice within the last 3 years Requesting Physician: Gissel Sequeira NP Primary Care Provider: GIAN MARCIAL DO Consult Narrative Reason for consult: low back pain Narrative: pleasant 80 year old male presents for evaluation of chronic thoracic and lumbar pain, hx of l4,5,S1 fusion and medtronic SCS implant as of 2019, who has failed to benefit from > 6 weeks of PT, provider guided HEP, heat, ice, tylenol, NSAIDs. currently utilizing duloxetine, lyrica, tylenol, baclofen with mild relief. radicular pain well controlled with scs per pt. denies falls or injury over the last 6 months. of note pt has a medtronic pacemaker as well. recently underwent thoracic xray and lumbar CT which shows significant multilevel spondylosis, DDD, and stenosis. pain today 3/10 increasing to 6/10 with standing, walking, stairs, activity, and ADLs. recently underwent bilateral L1/2 L2/3 facet medial branch RFA with 40% improvement at this time. still notes aching with walking and standing. did not find benefit to baclofen, back on flexeril 10mg bid prn pain without side effects. cc:: CC: Gissel Sequeira NP [facility] Medical History (Updated 03/05/25 @ 10:30 by Gissel Sequeira NP) Pacemaker ?Z95.0 - Presence of cardiac pacemaker (ICD-10) Social History Smoking status: Never smoker Little interest or pleasure in doing things: not at all Feeling down, depressed, or hopeless: not at all Meds Home Medications and Allergies Home Medications ?Medication ?Instructions ?Recorded ?Confirmed ?Type allopurinol 300 mg tablet 300 mg PO DAILY 11/06/24 04/06/25 History dapagliflozin propanediol 10 mg 10 mg PO DAILY 11/06/24 04/06/25 History tablet (Farxiga) duloxetine 60 mg capsule,delayed 60 mg PO DAILY 11/06/24 04/06/25 History release (Cymbalta) famotidine 40 mg tablet 40 mg PO DAILY 11/06/24 04/06/25 History finasteride 5 mg tablet 5 mg PO DAILY 11/06/24 04/06/25 History furosemide 20 mg tablet 20 mg PO DAILY PRN edema 11/06/24 04/06/25 History hydroxychloroquine 200 mg tablet 200 mg PO DAILY 11/06/24 04/06/25 History lubiprostone 8 mcg capsule 8 mcg PO BID 11/06/24 04/06/25 History montelukast 10 mg tablet 10 mg PO DAILY 11/06/24 04/06/25 History pregabalin 200 mg capsule 200 mg PO Q12H 11/06/24 04/06/25 History rosuvastatin 10 mg tablet 10 mg PO DAILY 11/06/24 04/06/25 History sacubitril 49 mg-valsartan 51 mg 1 tab PO BID 11/06/24 04/06/25 History tablet (Entresto) cyclobenzaprine 10 mg tablet See Rx Instructions .Route 03/05/25 04/06/25 Rx .COMPLEX #60 tabs baclofen 10 mg tablet 10 mg PO BID PRN muscle spasm 03/19/25 04/06/25 History semaglutide (weight loss) 1 mg/0.5 0.25 mg subcut QWEEK 03/19/25 04/06/25 History mL subcutaneous pen injector (Wegovy) Allergies Allergy/AdvReac Type Severity Reaction Status Date / Time No Known Drug Allergies Allergy Verified 04/06/25 12:29 Exam Constitutional Documenting provider has reviewed patient's vital signs: yes Common normals: no apparent distress, oriented x3, healthy appearing, alert and well nourished General appearance: cooperative HENTN Common normals: normocephalic, hearing grossly normal bilaterally and moist oral mucous membranes Head and scalp: normocephalic Eye Common normals: PERRL Pupil: PERRL Neck & C-Spine Common normals: full ROM General: normal visual inspection Chest Common normals: inspection of chest normal Respiratory Common normals: normal respiratory effort, no retractions and no use of accessory muscles Back & Pelvis Lumbar spine/lower back: ROM limited, pain with ROM, lumbar spinal tenderness and straight leg raise negative bilaterally Sacroiliac joints: SI joints normal Neuro Common normals: oriented x3 Sensorium/orientation: alert Psych Common normals: mental status grossly normal, thought process normal, cooperative, affect normal, speech normal and activity/motor behavior normal Speech: normal speech Thought process: normal thought process Results Additional Findings Additional findings: If on a controlled substance or opioids, I have checked an [place]AR[place] report on this patient and there are no aberrancies noted in the prescribing history.??If on a controlled substance or opioid a drug screen was completed and reviewed within the last year, and if there has not been a drug screen completed we ordered one today to monitor higher risk, state monitored pain medication use. As part of providing excellent, safe, comprehensive care, the following was completed at our patient's visit: 1. A medication reconciliation and review to ensure accurate knowledge of current/active medications, including asking our patients to inform us about any tslz-wwe-okhaevt medications or herbal remedies/nutritional supplements/alternative remedies. 2. A review to specifically ensure our patients have had annual screening for screening for depression, screening for tobacco use, and screening for unhealthy alcohol use. For concerning screenings had a discussion with the patient, provided patient education, and recommended follow-up with primary care provider when appropriate. If patient noted with a risk of falling, they received education on strength, gait, and balance training to prevent future risk of falling. Portions of this note may have been carried over from the previous visit and updated as appropriate. Please note this office utilizes paper charting in addition to the electronic medical record. A list of current medications, vitals, and PMH is available there as the clinical staff outside of myself do not have access to [employer] charting during the clinic day operations. As part of providing quality comprehensive care the current medications, vitals, and PMH were reviewed in the paper chart. Assessment and Plan Assessment and Plan (1) Lumbar spondylosis: Assessment and Plan: CHRISTIANO 34% (2) S/P insertion of spinal cord stimulator: (3) Failed back syndrome: (4) Lumbar stenosis with neurogenic claudication: (5) Myalgia, other site: Plan noting mild to moderate relief post bilateral L1-2 L2-3 facet RFA, remain in healing phase continue flexeril 10mg BID PRN pain/spasms continue HEP as tolerated f/u 6 weeks to evaluate delayed response to RFA
== END 2025-05-07 07:57 | disposition home or self-care (01) ==
LOC: PM 07:57
PROVIDERS: PCP Internal Medicine; Visit Provider Nurse Practitioner
DX: M47.816 Spondylosis without myelopathy or radiculopathy, lumbar region (principal); Z96.82 Presence of neurostimulator; M96.1 Postlaminectomy syndrome, not elsewhere classified; M48.062 Spinal stenosis, lumbar region with neurogenic claudication; M79.18 Myalgia, other site
CPT/HCPCS: G0463

== ENCOUNTER 2025-06-17 07:58 | Outpatient (OUT) | payer MEDICARE, OTHER, SELFPAY ==
--- OUTSIDE RECORDS SUMMARY | 2025-06-17 08:01 | XMS_ITS | Clinical Summary ---
Author Organization [facility] Address [address], [address] [place] [address] Care Team Providers Care Tableau Administrator Name Role Phone Ren Medrano DO Primary Care Provider Allergies Active AllergyReactionsCriticalityNoted DateCommentsTamsulosin Hcl07/07/2019 Passed out Medications MedicationSigDispense QuantityRefillsLast FilledStart DateEnd DateStatus hydroxychloroquine (PLAQUENIL) 200 MG tablet Take 200 mg by mouth 2 times dailyActive allopurinol (ZYLOPRIM) 300 MG tablet TAKE 1 TABLET BY MOUTH EVERY UCO325Active carvedilol (COREG) 25 MG tablet Takes 1/4 tab at HS302Active DULoxetine (CYMBALTA) 60 MG extended release capsule TAKE ONE CAPSULE BY MOUTH AT SVQBDJW083/11/2017Active ezetimibe (ZETIA) 10 MG tablet TAKE 1 TABLET AT [id number] pregabalin (LYRICA) 200 MG capsule Take 200 mg by mouth 2 times daily.Active famotidine (PEPCID) 40 MG tablet Take 40 mg by mouth DailyActive montelukast (SINGULAIR) 10 MG tablet Take 10 mg by mouth dailyActive sacubitril-valsartan (ENTRESTO) 97-103 MG per tablet Entresto 97 mg-103 mg tabletActive Active Problems No known active problems Family History Medical HistoryRelationNameCommentsHeart DiseaseFatherArthritisMotherRelation NameStatusCommentsFatherMother Social History Tobacco UseTypesPacks/DayYears UsedDateSmoking Tobacco: NeverSmokeless Tobacco: NeverAlcohol UseStandard Drinks/WeekCommentsNo0 (1 standard drink = 0.6 oz pure alcohol)Sex and Gender InformationValueDate RecordedSex Assigned at BirthNot on fileLegal CoyZebb2509/08/2012 4:27 PM ESTGender IdentityNot on fileSexual OrientationNot on file Last Filed Vital Signs Vital SignReadingTime TakenCommentsBlood Nrrjlwfc702/78008/07/2019 4:25 PM EST Jyzxa644208/07/2019 4:25 PM YWSUyvygaueqwa89.2 ??C (97.1 ??F)09/10/2020 3:03 PM ESTRespiratory Ckug106308/07/2019 4:25 PM ESTOxygen Qjoupkuncg10%08/07/2019 4:25 PM ESTInhaled Oxygen Concentration--Xgedvr784.2 kg (265 lb)09/10/2020 3:03 PM CQGLswqnq085.4 cm (6' 1 )09/10/2020 3:03 PM ESTBody Mass Index34.9609/10/2020 3:03 PM EST Plan of Treatment Not on file Medical Devices ImplantedTypeAreaManufacturerDevice IdentifierShelf Expiration DateModel / Serial / LotStimulator Intellis Adaptive Stim Mri - [id number] Implanted:Qty: 1 on 08/07/2019 by Jens Mayers MD at [facility] Spine:StimulatorN/A: Spine LumbarMEDTRONIC USA INC-[id number]/[id number] / [id number] / Lead Trial Compct Perc 1x8 Implanted:Qty: 1 on 07/08/2019 by Jens Mayers MD at [facility] SpineN/A: Spine LumbarMEDTRONIC USA INC-[id number]/[id number] / / [id number] Pain 1x8 60cm Vectris Implanted:Qty: 1 on 08/07/2019 by Jens Mayers MD at [facility] SpineN/A: Spine LumbarMEDTRONIC USA INC-PMM01/[id number] / / [id number] Pain 1x8 60cm Vectris Implanted:Qty: 1 on 08/07/2019 by Jens Mayers MD at [facility] SpineN/A: Spine LumbarMEDTRONIC [employer] INC-PMM1/[id number] / / [id number] Insurance Care Teams Team MemberRelationshipSpecialtyStart DateEnd Date Ren Medrano DO [address] [place] [id number] PCP - GeneralInternal Beyoeyie42/10/19
--- OUTSIDE RECORDS SUMMARY | 2025-06-17 08:01 | XMS_ITS | Clinical Summary ---
Author Organization [facility] Address [address] [place] [address] Care Team Providers Care Retail Inventory Control Clerk Name Role Phone Ren Medrano MD Primary Care Provider [phone] Allergies Active AllergyReactionsCriticalityNoted DateCommentsTamsulosinOther,Unknown 02/03/2015 Passed out Medications MedicationSigDispense QuantityRefillsLast FilledStart DateEnd DateStatus allopurinol (Zyloprim) 300 mg tablet allopurinol 300 mg tablet TAKE 1 TABLET BY MOUTH EVERY DAY12/28/2015Active sacubitriL-valsartan (Entresto) 49-51 mg tablet Entresto 49 mg-51 mg tablet TAKE 1 TABLET BY MOUTH TWICE A DAY *HOLD IF BLOOD PRESSURE LESS THAN 100*Active ezetimibe (Zetia) 10 mg tablet Take 10 mg by mouth at bedtime.01/14/2022ctive famotidine (Pepcid) 40 mg tablet Take 40 mg by mouth in the morning.04/19/2022ctive hydroxychloroquine (Plaquenil) 200 mg tablet Take 1 tablet by mouth in the morning.06/02/2022ctive montelukast (Singulair) 10 mg tablet montelukast 10 mg jldoao3712/28/2015Active rosuvastatin (Crestor) 10 mg tablet Take 10 mg by mouth at bedtime.06/30/2022ctive pregabalin (Lyrica) 200 mg capsule Take 200 mg by mouth in the morning and at bedtime.05/15/2022ctive naltrexone (Depade) 50 mg tablet Take 50 mg by mouth in the morning.Active Farxiga 10 mg TAKE 1 TABLET BY MOUTH EVERY DAY IN THE MORNING FOR 90 DAYS12/04/2023ctive DULoxetine (Cymbalta) [address] capsule Take 60 mg by mouth at bedtime.03/23/2024Active finerenone (Kerendia) 10 mg tablet Take 1 tablet by mouth in the morning.Active metoprolol succinate XL (Toprol-XL) 25 mg 24 hr tablet Indications:Chronic systolic (congestive) heart failure (CMS/HCC)TAKE 1 TABLET BY MOUTH ONCE A DAY DIRECTED 90 tablet 5Active lubiprostone (Amitiza) 8 mcg capsule Take 8 mcg by mouth in the morning and at bedtime.5Active baclofen (Lioresal) 10 mg tablet Take 1 tablet by mouth every 6 (six) hours during the day.5Active finasteride (Proscar) 5 mg tablet Take 1 tablet by mouth in the morning.5Active Active Problems ProblemNoted DateDiagnosed DateNICM (nonischemic cardiomyopathy)5Benign prostatic hyperplasia with urinary onkojfblwqx08/19/2022Cyst of epididymis 07/17/2022Former ycjhms1907/17/2022History of renal koxskjj3107/17/2022Nocturia 2Pain in bjkpfujs76/19/2022Poor urinary brcyss0607/17/2022Ischemic congestive peohvsankntwhs78/01/2019 Assessment & Plan (04/25/2023 11:23 AM EDT): Coronary artery disease is stable Continue GDMT- crestor, entresto, toprol and zetia continue risk factor modifications- heart healthy diet, regular exercise as tolerated and continue all medications. Systolic heart dtiwsiq1611/27/2018 Assessment & Plan (04/25/2023 11:25 AM EDT): [facility] IIb- EF recovered 50-55% on current [...] lasix which will also reduce LE edema Dpdtgsmgkvjytg86/09/2015Benign hypertensive cardiomyopathy with heart failure 02/04/2015 Assessment & Plan (04/25/2023 11:23 AM EDT): HTn is controlled 138/84 Continue entresto and toprol Assessment & Plan (07/18/2022 9:08 PM EST): Hypertension is stable today -continue metoprololXL 25mg, entresto LBBB (left bundle branch block)02/04/2015Preoperative cardiovascular examination 02/04/2015 Encounters DateTypeDepartmentCare OcwxAjaryjqmflu45/31/2025 12:15 PM EDTAncillary Procedure [facility] [address] [place] [address] Pre-operative cardiovascular examination, ICD in place05/29/2025Orders Only [facility] [address] [place] [address] Laura Pardo MD 05/29/2025Orders Only [facility] [address] [place] [address] Jose Angel Rey MD 05/26/2025 8:30 AM EDTAncillary Procedure [facility] [address] [place] [address] Pre-operative cardiovascular examination, ICD in place05/05/2025 9:00 AM EDT Office Visit [facility] [address] [place] [facility] [place] [address] Jose Angel Rey MD Biventricular implantable cardioverter-defibrillator (ICD) in situ (Primary Dx) 05/05/2025Orders Only [facility] [address] [place] [facility] [place] [address] Cate Holloway MA Chronic heart failure with preserved ejection fraction (HFpEF) (CMS/HCC) (Primary Dx)04/28/2025 10:45 AM EDTAncillary Procedure [facility] [address] [place] [address] Pre-operative cardiovascular examination, ICD in place04/27/2025Orders Only [facility] [address] [place] [address] Jose Angel Rey MD 03/31/2025 8:30 AM EDTAncillary Procedure [facility] [address] [place] [address] Pre-operative cardiovascular examination, ICD in place03/27/2025Orders Only [facility] [address] [place] [address] Jose Angel Rey MD from Last 3 Months Family History Medical HistoryRelationNameCommentsStrokeFatherRelationNameStatusCommentsBrother AliveFatherDeceasedMotherDeceased Social History Tobacco UseTypesPacks/DayYears UsedDateSmoking Tobacco: NeverSmokeless Tobacco: Never Tobacco Cessation:Counseling Given: Not Answered Alcohol UseStandard Drinks/WeekCommentsYes0 (1 standard drink = 0.6 oz pure alcohol)occasionalUT Safety & EnvironmentAnswerDate RecordedFear of Current or Ex-PartnerNot on file09/20/2023Emotionally AbusedNot on file09/20/2023hysically AbusedNot on file09/20/2023Sexually AbusedNot on file4Physically or Sexually AbusedNot on file09/20/2023Sex and Gender InformationValueDate Recorded Sex Assigned at OlkgaCmaf84/28/2025 8:28 PM EDTLegal RbrDvss8301/25/2022 9:19 PM EDTGender KujpomsdEpok15/28/2025 8:28 PM EDTSexual OrientationDon't know 02/23/2025 8:28 PM EDT Last Filed Vital Signs Vital SignReadingTime TakenCommentsBlood Gjoxhjbe857/8210/01/2025 8:56 AM EDT Hjkfr136305/05/2025 8:56 AM EDTTemperature--Respiratory Dfcx662212/25/2024 7:00 PM EDTOxygen Udokmldatq72%05/05/2025 8:56 AM EDTInhaled Oxygen Concentration-- Rcusbz108 kg (222 lb)05/05/2025 8:56 AM GSCYbcunn081.4 cm (6' 1 )05/05/2025 8:56 AM EDTBody Mass Index29.291 8:56 AM EDT Plan of Treatment Health MaintenanceDue DateLast DoneCommentsMedicare Annual Wellness (AWV) 1946Depression Bdtsujmuf98/01/1958Zoster Vaccines (1 of 2)02/28/1996Fall Risk Hndibeyto18/01/2011COVID-19 Vaccine ( season)2025 04/27/2023, 06/02/2021, 09/26/2020, Additional history existsInfluenza Vaccine (#1)5004/27/2023, 04/06/2020, 04/08/2019, Additional history existsAdult Fyzukua83, 02/28/2024neumococcal Vaccine: 50+ YearsCompleted 02/28/2024HIB VaccinesAged OutNo longer eligible based on patient's age to complete this topicHPV VaccinesAged OutNo longer eligible based on patient's age to complete this topicIPV VaccinesAged OutNo longer eligible based on patient's age to complete this topicMeningococcal B VaccineAged OutNo longer eligible based on patient's age to complete this topicMeningococcal VaccineAged OutNo longer eligible based on patient's age to complete this topicRotavirus Vaccines Aged OutNo longer eligible based on patient's age to complete this topic Medical Devices ImplantedTypeAreaManufacturerDevice IdentifierShelf Expiration DateModel / Serial / [id number] [employer]ia Mri Quad Configuration Technician-D [id number] Implanted:02/05/2018 (Quantity not on file)BATTERY STARTER-D [id number] AMPLIA MRI QUAD BATTERY STARTER- D / [id number] / [place] Xt Hf Quad Configuration Technician-D Implanted:Qty: 1 on 12/25/2024 by [facility] ICDLeft: HfufuVlcktpabb97/08/1745WWLU4VX / [id number] / Procedures Procedure NamePriorityDate/TimeAssociated DiagnosisCommentsCARDIAC DEVICE CHECK CHECK - MDMJHCXtmpfki58/03/2025 12:14 PM EST Pre-operative cardiovascular examination, ICD in place CARDIAC DEVICE CHECK CHECK - CSLXZEPhmvhuk40/03/2025 12:13 PM EST Pre-operative cardiovascular examination, ICD in place CARDIAC DEVICE CHECK - REMOTE - CMZCykdhfe92/31/2025 12:00 AM EDTCARDIAC DEVICE CHECK - REMOTE - ZLTBppdnvj16/31/2025 12:00 AM EDTCARDIAC DEVICE CHECK CHECK - SOJSFEGaqzmxs76/02/2025 10:12 AM EDT Pre-operative cardiovascular examination, ICD in place CARDIAC DEVICE CHECK - REMOTE - JMKBkfzevx02/29/2025 12:00 AM EDTCARDIAC DEVICE CHECK CHECK - RTLEFTWetbicx99/02/2025 11:30 AM EDT Pre-operative cardiovascular examination, ICD in place CARDIAC DEVICE CHECK - REMOTE - ROEDavcspn27/29/2025 12:00 AM EDTfrom Last 3 Months Results * CARDIAC DEVICE CHECK - REMOTE - ICD (06/01/2025 12:14 PM EST) Only the most recent of4 resultswithin the time period is included. Specimen (Source)Anatomical Location / LateralityCollection Method / Volume Collection TimeReceived Time Narrative Authorizing ProviderResult TypeResult StatusPamyla Rey [facility] [place] IMPLANTABLE CARDIAC DEVICE PROCEDURESFinal ResultPerforming OrganizationAddressCity/State/ZIP Code Phone Number CPACS * Cardiac device check - Remote ICD (05/29/2025 12:00 AM EDT) Only the most recent of4 resultswithin the time period is included. Anatomical RegionLateralityModalityOtherSpecimen (Source)Anatomical Location / LateralityCollection Method / VolumeCollection TimeReceived Time05/29/2025 Narrative Authorizing ProviderResult TypeResult StatusLaura Pardo MDCV IMPLANTABLE CARDIAC DEVICE PROCEDURESFinal Result from Last 3 Months Insurance Care Teams Team MemberRelationshipSpecialtyStart DateEnd Ren Medrano MD [facility] [place] [address] PCP - Xflapcq75/23/22
--- OUTSIDE RECORDS SUMMARY | 2025-06-17 08:03 | XMS_ITS | CCD ---
Author Organization [facility] Care Team Providers Care Building Dismantler Name Role Phone PHYSICIAN, DEFAULT Unavailable Unavailable [...] Unavailable REN MARCIAL JR Primary Care Physician [phone] Ivonne MARTINEZ, Gill Thakkar Attending Unavailable Giedraitis , Gill Thakkar Attending Unavailable Giedraitis , Gill Thakkar Attending Unavailable Giedraling MARTINEZ, Gill Thakkar Attending Unavailable SAVITA, JOSE [...] JOSE ANGEL Attending Unavailable SAVITA, JOSE ANGEL Attending Unavailable SAVITA, JOSE ANGEL Referring Unavailable SAVITA, JOSE ANGEL Referring Unavailable SAVITA, JOSE ANGEL Referring Unavailable SAVITA, JOSE ANGEL Referring Unavailable SAVITA, JOSE ANGEL Referring Unavailable SAVITA, JOSE ANGEL Referring Unavailable Allergies Allergy ClassificationReported Allergen(s)Allergy TypeDate of OnsetReaction(s) Facility (3 sources)tamsulosinDrug Dzyaisf78-22-6793EUWUao [facility] (1 source)NO KNOWN DRUG ALLERGIESDrug allergy (disorder)00-07-9011Rpo [facility] (3 sources)tamsulosinDrug Wnsnnah07-24-7181[facility] (3 sources)tamsulosin; Translations: [tamsulosin]Drug Vkjeqlq48-41-7955 [facility]The [facility] Medications Current Medications MedicationDrug Class(es)DatesSig (Normalized)Sig (Original)Acetaminophen / HYDROcodone (3 sources)Opioid AgonistStart: 08-07-2019 End: 13-27-8978GXHPFmzjzgv-acetaminophen (NORCO) 5-325 MG per tablet 1 tablet Start: 07-08-2019 End: 64-04-6840ZLRDKmjxsum-acetaminophen (NORCO) 5-325 MG per tablet 1 tablet Start: 83-97-2965Ijqjc 325 mg-5 mg oral tablet 1 tab(s), Oral, q4hr for pain, 40 tab(s), Refill(s) 1 Start Date: 12/30/15 Status: Ordered Quantity: 40.0 Unit: tab(s) Repeat number: 2acetaminophen 325 mg / oxyCODONE hydrochloride 5 mg oral tablet (2 sources)Opioid AgonistStart: 08-07-2019 End: 08-26-2090dycYXJLZH-acetaminophen (PERCOCET) 5-325 MG per tablet Indications: Post-op pain Take 1 tablet by mouth every 6 hours as needed for Pain for up to 7 days. Intended supply: 7 days. Take lowest dose possible to manage pain 28 tablet 0 08/07/2019 08/14/2019 Activeallopurinol 300 mg oral tablet (4 sources)Xanthine Oxidase InhibitorStart: 12-13-0132jjew 1 tablet by mouth once dailyallopurinol (ZYLOPRIM) 300 MG tablet TAKE 1 TABLET BY MOUTH EVERY DAY 3 08/28/2017 Activecalcium chloride 0.0014 meq/ml / potassium chloride 0.004 meq/ml / sodium chloride 0.103 meq/ml / sodium lactate 0.028 meq/ml injectable solution (4 sources)Start: 05-33-5930dvrhrkml ringers infusionStart: 14-26-1770aejfmlxu ringers infusioncarvedilol 25 mg oral tablet (4 sources)alpha-Adrenergic Vidhi, beta-Adrenergic BlockerStart: 09-05-2017 carvedilol (COREG) 25 MG tablet Takes 1/4 tab at HS 3 09/05/2017 ActiveStart: 33-12-1744ltxr 1 tablet by mouth once dailycarvedilol 25 mg Tab 12.5 mg = 0.5 tab(s), Oral, Daily, if checks BP and is high takes 1 tab, High blood pressure Start Date: 12/28/15 Status: Ordered Repeat number: 1cephalexin 500 mg oral capsule (2 sources)Cephalosporin AntibacterialStart: 08-07-2019 End: 34-43-9342vhlx 1 capsule by mouth three times dailycephALEXin (KEFLEX) 500 MG capsule Take 1 capsule by mouth 3 times daily for 7 days 21 capsule 0 03/202008/14/2019 Active1 ml diphenhydrAMINE hydrochloride 50 mg/ml cartridge (2 sources)Histamine-1 Receptor AntagonistStart: 08-07-2019 End: 57-69-9995egkwrjyhucGRPCT (BENADRYL) injection 12.5 mgStart: 07-08-2019 End: 37-57-1409eldzsljakrFVWKK (BENADRYL) injection 12.5 mgDULoxetine 60 mg delayed release oral capsule (4 sources)Serotonin and Norepinephrine Reuptake InhibitorStart: 77-52-3186shqs 1 capsule by mouth at bedtimeDULoxetine (CYMBALTA) 60 MG extended release capsule TAKE ONE CAPSULE BY MOUTH AT BEDTIME 3 07/09/2017 ActiveStart: 99-90-7816imhe 60 mg by mouth once dailyCymbalta 60 mg, Oral, Daily, Pain - Severe Start Date: 12/28/15 Status: Ordered Repeat number: 1empagliflozin 10 mg oral tablet (1 source)Sodium-Glucose Cotransporter 2 InhibitorStart: 56-19-7177znuj 1 tablet by mouth once daily in the morningJardiance 10 mg oral tablet 10 mg = 1 tab(s), Oral, qAM Start Date: 08/02/21 Status: Ordered Repeat number: 1ezetimibe 10 mg oral tablet (4 sources)Dietary Cholesterol Absorption InhibitorStart: 03-34-8131jzlabyzut (ZETIA) 10 MG tablet TAKE 1 TABLET AT BEDTIME 1 08/11/2017 Activefamotidine 40 mg oral tablet (3 sources)Histamine-2 Receptor Antagonisttake 1 tablet by mouth once daily famotidine (PEPCID) 40 MG tablet Take 40 mg by mouth Daily 0 Active2 ml fentaNYL 0.05 mg/ml injection (2 sources)Opioid AgonistStart: 28-83-3715ytbkvLQS (SUBLIMAZE) injection 50 mcg Start: 69-56-5164ltcsoIYR (SUBLIMAZE) injection 50 mcg1 ml HYDROmorphone hydrochloride 1 mg/ml cartridge (2 sources)Opioid AgonistStart: 31-77-9821QMYDMiovaccxt (DILAUDID) injection 0.5 mgStart: 06-46-7718NBEFSoiljtbym (DILAUDID) injection 0.5 mghydroxychloroquine sulfate 200 mg oral tablet (4 sources)Antimalarial, Antirheumatic AgentStart: 21-19-6194wamp 1 mg by mouth once dailyhydroxychloroquine 200 mg Tab mg tab(s), Oral, Daily, Refills(s) 0 Start Date: 04/06/20 Status: Ordered Repeat number: 1take 1 tablet by mouth twice dailyhydroxychloroquine (PLAQUENIL) 200 MG tablet Take 200 mg by mouth 2 times daily 0 Kyzigf59 ml lidocaine hydrochloride 10 mg/ml injection (3 sources)Antiarrhythmic, Amide Local AnestheticStart: 08-07-2019 End: 39-84-5636bjkycxxxc PF 1 % injection 1 mLStart: 07-08-2019 End: 79-52-9933bpyfyicao PF 1 % injection 1 mL1 ml meperidine hydrochloride 25 mg/ml cartridge (2 sources)Opioid AgonistStart: 39-63-8942dfwozhswkw (DEMEROL) injection 12.5 mg Start: 36-37-5720xdfpjqapcr (DEMEROL) injection 12.5 mg2 ml metoclopramide 5 mg/ml prefilled syringe (2 sources)Dopamine-2 Receptor AntagonistStart: 08-07-2019 End: 59-06-4042eayzzaxgpcbzie (REGLAN) injection 10 mgStart: 07-08-2019 End: 31-13-3691paakxsemsizcjr (REGLAN) injection 10 mgmontelukast 10 mg oral tablet (4 sources)Leukotriene Receptor AntagonistStart: 58-73-0741vmwz 1 tablet by mouth once daily in the eveningmontelukast 10 mg Tab 10 mg = 1 tab(s), Oral, qPM, Allergy symptoms Start Date: 12/28/15 Status: Ordered Repeat number: 12 ml ondansetron 2 mg/ml injection (2 sources)Serotonin-3 Receptor AntagonistStart: 08-07-2019 End: 44-01-0699ffratponrdk (ZOFRAN) injection 4 mgStart: 07-08-2019 End: 45-34-6948lpdoybpsoyl (ZOFRAN) injection 4 mgpravastatin sodium 40 mg oral tablet (1 source)HMG-CoA Reductase InhibitorStart: 08-83-4506jiia 1 tablet by mouth once dailypravastatin 40 mg Tab 40 mg = 1 tab(s), Oral, Daily, High cholesterol Start Date: 12/28/15 Status: Ordered Repeat number: 1pregabalin 200 mg oral capsule (4 sources)Start: 22-33-1313mlzl 1 capsule by mouth three times dailyLyrica 200 mg Cap 200 mg = 1 cap(s), Oral, TID, Pain - Moderate Start Date: 12/28/15 Status: OrderedRepeat number: 1take 1 capsule by mouth twice dailypregabalin (LYRICA) 200 MG capsule Take 200 mg by mouth 2 times daily. 0 Activerosuvastatin calcium 5 mg oral tablet (1 source)HMG-CoA Reductase InhibitorStart: 61-69-0884fmsf 1 mg by mouth once dailyrosuvastatin 5 mg Tab mg tab(s), Oral, Daily, Refills(s) 0 Start Date: 04/06/20 Status: Ordered Repeat number: 1sacubitril 97 mg / valsartan 103 mg oral tablet (4 sources)Angiotensin 2 Receptor BlockerStart: 85-13-1838Rfxhaata 97 mg-103 mg oral tablet 1 tab(s), Oral, BID, 60 tab(s), Refill(s) 0 Start Date: 04/06/20 Sta tus: Ordered Quantity: 60.0 Unit: tab(s) Repeat number: 1sacubitril-valsartan (ENTRESTO) 97-103 MG per tablet Entresto 97 mg-103 mg tablet 0 Active3 ml sodium chloride 9 mg/ml injection (6 sources)Start: 84-51-6890qjugwi chloride flush 0.9 % injection 10 mLStart: 77-64-1791faudwf chloride flush 0.9 % injection 10 mLtraMADol hydrochloride 50 mg oral tablet (2 sources)Opioid AgonistStart: 06-20-2019 End: 10-99-1762wozh 1 tablet by mouth once dailytraMADol (ULTRAM) 50 MG tablet Indications: Spinal stenosis, lumbar region with neurogenic claudication , Lumbar radiculopathy , Lumbar spondylosis Take 1 tablet by mouth daily for 30 days. 30 tablet0 06/20/2019 07/20/2019 ActiveStart: 13-02-7971wgizwwwg Oral, Pain Start Date: 03/18/19 Status: Ordered Repeat number: 1 Completed/Discontinued Medications MedicationDrug Class(es)DatesSig (Normalized)Sig (Original)diclofenac sodium 50 mg delayed release oral tablet (1 source)Nonsteroidal Anti-inflammatory DrugStart: 07-09-2018 End: 18-14-7859gayd 1 tablet by mouth three times daily at mealtimediclofenac (VOLTAREN) 50 MG EC tablet Indications: Lumbar radiculopathy , Lumbar spondylosis TAKE 1TABLET BY MOUTH 3 TIMES A DAY WITH MEALS 60 tablet 3 07/09/2018 07/07/2019 Discontinued (LIST CLEANUP)OXcarbazepine 150 mg oral tablet (1 source)Anti-epileptic Agent End: 11-69-6665pzaj 1 tablet by mouth twice dailyOXcarbazepine (TRILEPTAL) 150 MG tablet Take 150 mg by mouth 2 times daily 0 07/07/2019 Discontinued (LIST CLEANUP) Problems Active Problems Problem ClassificationProblemDateDocumented DateEpisodic/ChronicCalculus of urinary tract (2 sources)H/O: urinary stone; Translations: [History of calculus of kidney] 79-56-9650UjbxjlheKtqorstwai disorders (6 sources)Left bundle-branch block, unspecified; Translations: [Left bundle branch block]Onset: 676515-77-7393VnosfqtXeyvdtnbfs heart failure; nonhypertensive (15 sources)Left ventricular failure, unspecified; Translations: [Unspecified systolic (congestive) heart failure]Onset: 31-57-7035TuhgsyuFivkddvnc of lipid metabolism (1 source)Serum cholesterol borderline fpdg84-72-1493XxspccqFhupgyfaa hypertension (3 sources)Hypertensive disorder; Translations: [Hypertension]Onset: 05-05-2025 07-06-1110GkbvdweKrtscokqbstav symptoms and ill-defined conditions (2 sources)Nocturia; Translations: [Poor stream of urine]65-40-7210IdhmwezqYskq and other crystal arthropathies (1 source)Zsgc41-01-9892GrvzuxfRhfnvjowtnw of prostate (5 sources)Benign prostatic hyperplasia with lower urinary tract symptoms; Translations: [Benign prostatic hypertrophy with outflow obstruction]Onset: 92-40-2474UzlrklmQygpbxnqurza conditions of male genital organs (1 source)Rvnzueggffpt85-56-9126WizwiuuqLffooloaqgciim (1 source)Unspecified osteoarthritis, unspecified site; Translations: [UNSPECIFIED OSTEOARTHRITIS, UNSPECIFIED SITE]Onset: 05-23-7205UddcwtpCobeg aftercare (1 source)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; Translations: [[facility] (CURRENT) USE OF ASPIRIN]Onset: 87-50-8761GxewuphdRzxzs connective tissue disease (1 source)Ganglion of vtvof94-50-5093MhwixfqdVbnou male genital disorders (1 source)Cyst of atotrferuf86-59-1247VtzynlhfNljih male genital disorders (1 source)Pain in qedulckk62-63-7849HukubvtqFidv-; endo-; and myocarditis; cardiomyopathy (8 sources)Cardiomyopathy, unspecified; Translations: [Cardiomyopathy]Onset: 48-15-5609PprxcqmAxmrchumt; thrombophlebitis and thromboembolism (1 source)Deep venous zjaqlkkyba45-42-8558CzvueyfpFvdqcjge codes; unclassified (1 source)Chronic back ghpg61-66-1885TthwpoivEmqxhafii and history of mental health and substance abuse codes (1 source)Zr-cazfde85-28edulkn16-19-8357VfqbioguGnhhfbtshnb; intervertebral disc disorders; other back problems (2 sources)Dorsalgia, unspecified; Translations: [Radicular pain]Onset: 279437-17-5628ItymnspuFkayoltnmqly (2 sources)Unknown / UNK(Unknown)Onset: 01-11-2018 Past or Other Problems Problem ClassificationProblemDateDocumented DateEpisodic/ChronicOther aftercare (2 sources)Encounter for other specified aftercare; Translations: [Encounter for other specified aftercare]Onset: 85-25-6827DarbqqubRxyvf nervous system disorders (1 source)Postoperative painEpisodicResidual codes; unclassified (1 source)PainEpisodic Results Test NameValueInterpretationReference RangeFacilityOrders Onlyon 05-29-2025 Orders [id number] Kevin Guevara 1945 M Date Provider Department Center 05/29/2025 JOSE ANGEL ABRAMS [facility] Family History Problem Relation Age of Onset Stroke Father Family Status - Relation Status Age at Mother Father Brother AliveNormalUniversity of Wise Health System East CampusOrders [id number] Kevin Guevara 1945 M Date Provider Department Center 05/29/2025 AGUEDA STARKEY [facility] Family History Problem Relation Age of Onset Stroke Father Family Status - Relation Status Age at Mother Father Brother AliveNoNovant Health Brunswick Medical CenterwisamBarberton Citizens HospitalOffice Visiton 05-05-2025 Follow-up [id number] Kevin Guevara Sherman 1945 M Date Provider Department Center 05/05/2025 JOSE ANGEL ABRAMS [facility] Family History Problem Relation Age of Onset Stroke Father Family Status - Relation Status Age at Mother Father Brother Alive Level of Service:38200 RI OFFICE/OUTPATIENT ESTABLISHED LOW [facility] SystemOrders Onlyon 47-96-0726Ujmgdf [id number] Jose Guevaraelham Whitaker 1945 M Date Provider Department Center 04/27/2025 JOSE ANGEL [facility]BRAMS [facility] Family History Problem Relation Age of Onset Stroke Father Family Status - Relation Status Age at Mother Father Brother AliveSt. Rita's HospitalOrders Onlyon 03-27-2025 Orders [id number] Jose Guevaraelham Whitaker 1945 M Date Provider Department Center 03/27/2025 JOSE ANGEL ABRAMS [facility] Family History Problem Relation Age of Onset Stroke Father Family Status - Relation Status Age at Mother Father Brother AliveCarteret Health CarewisamBarberton Citizens HospitalOffice Visiton 01-01-2025 Follow-up [id number] Kevin Guevara Sherman 1945 M Date Provider Department Center 01/01/2025 ARELIS PENA AIDEE [facility] Family History Problem Relation Age of Onset Stroke Father Family Status - Relation Status Age at Mother Father Brother Alive Level of Service:87523 RI POSTOP FOLLOW UP VISIT RELATED TO ORIGINAL [facility] HospitalHPon 14-77-4000XQHW Cardiology Note [facility] Reason for follow-up: BiV ICD HPI: [...] in follow up after recent admission to [facility] when he developed hypotension after GA for urologic surgery. He has history of non ischemic Cardiomyopathy and systolic heart failure with cath in 2007 at [facility] showing no significant CAD when his EF was 30%. He had a recent stress test at Dr Marcial's office which was negative. He has been maintained on coreg and Entresto maximum dosage for >4 months now. On his recent echocardiogram at [facility] there was reduced EF 30% and [...] Laterality Date BACK SURGERY (more content not included)...St. [facility]'s HospitalNURSNOTE on 87-01-1113DBWDKZVEDZ educated pt on d/c instructions. This included: [...] wheeled off of unit with all of belongings.St. Rita's HospitalNURSNOTECHG wipes and betadine nasal swabs completed.Normal [facility] Onlyon 67-72-7535Pxyati [id number] Kevin Guevara 1945 M Date Provider Department Center 12/25/2024 REINA FRAZIER [facility] Family History Problem Relation Age of Onset Stroke Father Family Status - Relation Status Age at Mother Father Brother AliveNormalUniversUC Medical CenterOrders Onlyon 12-17-2024 Orders [id number] Kevin Guevara 1945 M Date Provider Department Center 12/17/2024 JOSE ANGEL ABRAMS [facility] Family History Problem Relation Age of Onset Stroke Father Family Status - Relation Status Age at Mother Father Brother AliveNormalUniBarberton Citizens HospitalOffice Visiton 12-09-2024 Follow-up [id number] Jose Guevaraelham Whitaker 1945 M Date Provider Department Center 12/09/2024 JOSE ANGEL ABRAMS [facility] Family History Problem Relation Age of Onset Stroke Father Family Status - Relation Status Age at Mother Father Brother Alive Level of Service:69232 RI OFFICE/OUTPATIENT NEW HIGH MDM 60 MINUTESNormal [facility] TroyDocumentationon 95-09-4837Onqquymkdfdyu [id number] Jose Guevaraelham Whitaker 1945 M Date Provider Department Center 11/21/2024 JIA LEON [facility] Family History Problem Relation Age of Onset Stroke Father Family Status - Relation Status Age at Father Reason for Visit and Comments: Congestive Heart Failure [127]NormalUnSamaritan HospitalOrders Onlyon 08-00-5929Fouscg [id number] Jose Guevaraelham Whitaker 1945 Date Provider Department Center 11/17/2024 AGUEDA STARKEY [facility] Family History Problem Relation Age of Onset Stroke Father Family Status - Relation Status Age at FatherNormalUniversUC Medical CenterPROF CHEM 8 (BAS METB)on 79-56-3011Isnyc gap [Moles/Vol]9.4 mmol/LNormalMount St. Mary HospitalComment on above:Performed By: #### BMP #### [facility] [address] [address] [address] Javy BrianCalcium [Mass/Vol]9.7 mg/dLNormal8.5-10.1[facility] Comment on above:Performed By: #### BMP #### [facility] [address] [address] [address] Javy BrianChloride [Moles/Vol]106 mmol/KTxejug23-611NmrMount St. Mary Hospital Comment on above:Performed By: #### BMP #### [facility] [address] [address] [address] Javy BrianCO2 [Moles/Vol]30.4 mmol/SJqadeq69.0-32.0[facility] Comment on above:Performed By: #### BMP #### [facility] [address] [address] [address] Javy BrianCreatinine [Mass/Vol]1.46 mg/dLCritically high0.70-1.30The [facility] EastComment on above:Performed By: #### BMP #### [facility] [address] [address] [address] Palafox ChangEGFR-AF [id number] mL/min/1.41l4Sdpzbydaqb low>=60The [facility] EastComment on above:Performed By: #### BMP #### [facility] [address] [address] [address] Javy LugoGFR-NON AF AANUPYAR38 mL/min/1.15d6Jofkyolrzl low>=60The [facility] EastComment on above:Performed By: #### BMP #### [facility] [address] [address] [address] Javy BrianGlucose [Mass/Vol]99 mg/sAZelrsd48-540Bzi [facility] Comment on above:Performed By: #### BMP #### [facility] [address] [address] [address] Javy BrianPotassium [Moles/Vol]4.8 mmol/LNormal3.5-5.1The [facility] Comment on above:Performed By: #### BMP #### [facility] [address] [address] [address] Javy BrianSodium [Moles/Vol]141 mmol/FYnavun342-823Iiq [facility] Comment on above:Performed By: #### BMP #### [facility] [address] [address] [address] Javy BrianUrea nitrogen [Mass/Vol]23.0 mg/dLCritically high7.0-18.0The [facility] EastComment on above:Performed By: #### BMP #### [facility] [address] [address] [address] Javy BrianUrea nitrogen/Creatinine [Mass ratio]15.8 mg/mgNormalThe [facility] EastComment on above:Performed By: #### BMP #### [facility] [address] [address] [address] Javy BrianPROF CHEM 8 (BAS METB)on 82-35-2694Jophz gap [Moles/Vol]10.7 mmol/LNormalMount St. Mary HospitalComment on above:Performed By: #### BMP #### [facility] [address] [address] [address] Javy BrianCalcium [Mass/Vol]9.7 mg/dLNormal8.5-10.1[facility] Comment on above:Performed By: #### BMP #### [facility] [address] [address] [address] Javy BrianChloride [Moles/Vol]106 mmol/SSsarzb01-563NqzMount St. [facility] Hospital Comment on above:Performed By: #### BMP #### [facility] [address] [address] [address] Javy BrianCO2 [Moles/Vol]29.5 mmol/REhlxpj28.0-32.0[facility] Comment on above:Performed By: #### BMP #### [facility] [address] [address] [address] Javy BrianCreatinine [Mass/Vol]1.79 mg/dLCritically high0.70-1.30The [facility] EastComment on above:Performed By: #### BMP #### [facility] [address] [address] [address] Javy LugoGFR-AF HHWKTCTT08 mL/min/1.71w5Zrqdfbvcdr low>=60The [facility] EastComment on above:Performed By: #### BMP #### [facility] [address] [address] [address] Javy LugoGFR-NON AF KNDJFZZZ74 mL/min/1.04i6Xodxciakhs low>=60The [facility] EastComment on above:Performed By: #### BMP #### [facility] [address] [address] [address] Javy BrianGlucose [Mass/Vol]94 mg/cSDwdony19-391Por [facility] Comment on above:Performed By: #### BMP #### [facility] [address] [address] [address] Javy BrianPotassium [Moles/Vol]5.2 mmol/LCritically high3.5-5.1The [facility] EastComment on above:Performed By: #### BMP #### [facility] [address] [address] [address] Javy BrianSodium [Moles/Vol]141 mmol/VVbhiuq918-275Azv [facility] Comment on above:Performed By: #### BMP #### [facility] [address] [address] [address] Javy BrianUrea nitrogen [Mass/Vol]34.0 mg/dLCritically high7.0-18.0The [facility] EastComment on above:Performed By: #### BMP #### [facility] [address] [address] [address] Javy BrianUrea nitrogen/Creatinine [Mass ratio]19.0 mg/mgNormalThe [facility] EastComment on above:Performed By: #### BMP #### [facility] [address] [address] [address] Javy BrianPROF CHEM 8 (BAS METB)on 59-73-8352Uvgwo gap [Moles/Vol]12.0 mmol/LNormalThe [facility] EastComment on above:Performed By: #### BMP #### [facility] [address] [address] [address] Javy BrianCalcium [Mass/Vol]8.9 mg/dLNormal8.5-10.1The [facility] Comment on above:Performed By: #### BMP #### [facility] [address] [address] [address] Javy BrianChloride [Moles/Vol]109 mmol/LCritically ptcs81-674Drb [facility] EastComment on above:Performed By: #### BMP #### [facility] [address] [address] [address] Javy BrianCO2 [Moles/Vol]29.0 mmol/ZGydcbn53.0-30.0The [facility] Comment on above:Performed By: #### BMP #### [facility] [address] [address] [address] Javy BrianCreatinine [Mass/Vol]1.79 mg/dLCritically high0.66-1.25The [facility] EastComment on above:Performed By: #### BMP #### [facility] [address] [address] [address] Javy LugoGFR-AF LQJSXRZD29 mL/min/1.38n8Bdvjlolmxv low>=60The [facility] EastComment on above:Performed By: #### BMP #### [facility] [address] [place] [address] Dr. Javy LugoGFR-NON AF PGUWRWPS59 mL/min/1.14d4Cdfzjxurry low>=60The [facility] EastComment on above:Performed By: #### BMP #### [facility] [address] [place] [address] Dr. Javy BrianGlucose [Mass/Vol]92 mg/hNNhjiqe43-192UurMount St. Mary Hospital Comment on above:Performed By: #### BMP #### [facility] [address] [place] [address] Dr. Javy BrianPotassium [Moles/Vol]5.0 mmol/LNormal3.4-5.0The [facility] Comment on above:Performed By: #### BMP #### [facility] [address] [place] [address] Dr. Javy BrianSodium [Moles/Vol]145 mmol/HQalsex667-514Kvy [facility] Comment on above:Performed By: #### BMP #### [facility] [address] [address] [address] Javy BrianUrea nitrogen [Mass/Vol]35.0 mg/dLCritically high7.0-18.0The [facility] EastComment on above:Performed By: #### BMP #### [facility] [address] [address] [address] Javy BrianUrea nitrogen/Creatinine [Mass ratio]19.6 mg/mgNormalThCleveland Clinic Union HospitalComment on above:Performed By: #### BMP #### [facility] [address] [place] [address] Dr. Javy Cooper AUTO DIFFon [id number] #0.0 103/ulNormal0.0-0.1The [facility] Cleveland EastComment on above:Performed By: #### CBC #### [facility] [address] [place] [address] Dr. Javy BrianBasophils/100 WBC (Bld)0.7 %Normal0.2-2.0[facility] Comment on above:Performed By: #### CBC #### [facility] [address] [place] [address] Dr. Palafox ChangELu #0.2 103/ulNormal0.0-0.7The [facility] EastComment on above: Performed By: #### CBC #### [facility] [address] [place] [address] Dr. Javy Lugoosinophils/100 WBC (Bld)3.1 %Normal0.9-7.0[facility] Comment on above:Performed By: #### CBC #### [facility] [address] [place] [address] Dr. Javy Lugorythrocyte distribution width (RBC) [Ratio]14.3 %Ilibos92.0-15.0 The [facility] EastComment on above:Performed By: #### CBC #### [facility] [address] [place] [address] Dr. Javy BrianHematocrit (Bld) [Volume fraction]43.5 %Qbalad13.0-54.0The [facility] EastComment on above:Performed By: #### CBC #### [facility] [address] [place] [address] Dr. Javy BrianHemoglobin (Bld) [Mass/Vol]13.7 g/dLCritically low14.0-18.0The [facility] EastComment on above:Performed By: #### CBC #### [facility] [address] [place] [address] Dr. Javy Mallory #0.01 10e3/ulNormal0.00-0.03The [facility] EastComment on above:Performed By: #### CBC #### [facility] [address] [place] [address] Dr. Javy Mallory %0.2 %Normal0.0-0.5The [facility] EastComment on above: Performed By: #### CBC #### [facility] [address] [place] [address] Dr. Javy Gloria #1.4 103/ulNormal1.2-3.8The [facility] EastComment on above:Performed By: #### CBC #### [facility] [address] [place] [address] Dr. Javy Garzahocytes/100 WBC (Bld)23.6 %Wikqmw63.5-60.0The [facility] EastComment on above:Performed By: #### CBC #### [facility] [address] [place] [address] Dr. Javy AbbottUAL DIFF REQNONormalThe [facility] EastComment on above: Performed By: #### CBC #### [facility] [address] [place] [address] Dr. Javy Denny (RBC) [Entitic mass]29.0 pwNbkjys64.9-34.0The [facility] EastComment on above:Performed By: #### CBC #### [facility] [address] [place] [address] Dr. Javy Denny (RBC) [Mass/Vol]31.5 g/vUBckzsm85.9-35.2The [facility] EastComment on above:Performed By: #### CBC #### [facility] [address] [place] [address] Dr. Javy Denny (RBC) [Entitic vol]92.0 lSItlzxu90.0-94.0The [facility] EastComment on above:Performed By: #### CBC #### [facility] [address] [address] [address] Javy Trevizo #0.8 103/ulNormal0.3-0.8The [facility] EastComment on above:Performed By: #### CBC #### [facility] [address] [place] [address] Dr. Javy Thibodeauxocytes/100 WBC (Bld)14.1 %Critically high1.7-12.0The [facility] EastComment on above:Performed By: #### CBC #### [facility] [address] [place] [address] Dr. Javy Forrester #3.4 103/ulNormal1.4-6.5The [facility] EastComment on above:Performed By: #### CBC #### [facility] [address] [place] [address] Dr. Javy Eduardoutrophils/100 WBC (Bld)58.3 %Wqahtq02.0-75.0The [facility] EastComment on above:Performed By: #### CBC #### [facility] [address] [place] [address] Dr. Javy Farmerlet mean volume (Bld) [Entitic vol]9.7 fLNormal9.5-13.5The [facility] EastCombr[facility] on above:Performed By: #### CBC #### [facility] [address] [place] [address] Dr. Javy BrianPLT113 103/ulCritically fjt090-014Aiw [facility] EastComment on above:Performed By: #### CBC #### [facility] [address] [place] [address] Dr. Javy BrianRBC4.73 106/ulNormal4.70-6.10The [facility] EastCombr[facility] on above:Performed By: #### CBC #### [facility] [address] [place] [address] Dr. Javy BrianWBC5.8 103/ulNormal4.0-11.0The [facility]Com[facility] on above: Performed By: #### CBC #### [facility] [address] [address] [address] Javy BrianPROF CHEM 8 (BAS METB)on 02-26-5576Gxwpj gap [Moles/Vol]13.2 mmol/LNormalMount St. Mary HospitalComment on above:Performed By: #### BMP #### [facility] [address] [address] [address] Javy BrianCalcium [Mass/Vol]9.1 mg/dLNormal8.5-10.1[facility] Comment on above:Performed By: #### BMP #### [facility] [address] [address] [address] Javy BrianChloride [Moles/Vol]110 mmol/LCritically rlcz02-784Enw [facility] EastComment on above:Performed By: #### BMP #### [facility] [address] [place] [address] Dr. Javy BrianCO2 [Moles/Vol]27.6 mmol/FLdouwm00.0-30.0[facility] Comment on above:Performed By: #### BMP #### [facility] [address] [address] [address] Javy BrianCreatinine [Mass/Vol]1.61 mg/dLCritically high0.66-1.25The [facility] EastComment on above:Performed By: #### BMP #### [facility] [address] [address] [address] Javy LugoGFR-AF RGBKIDZM30 mL/min/1.69g2Ejhkcblnnt low>=60The [facility] EastComment on above:Performed By: #### BMP #### [facility] [address] [address] [address] Javy LugoGFR-NON AF ONKITDED81 mL/min/1.42k0Gkhuebpccg low>=60The [facility] EastComment on above:Performed By: #### BMP #### [facility] [address] [address] [address] Javy BrianGlucose [Mass/Vol]94 mg/aRRmiqmy43-032[facility] Comment on above:Performed By: #### BMP #### [facility] [address] [address] [address] Javy BrianPotassium [Moles/Vol]5.8 mmol/LCritically high3.4-5.0The [facility] EastComment on above:Performed By: #### BMP #### [facility] [address] [address] [address] Javy BrianSodium [Moles/Vol]145 mmol/CEayqtz306-970Lme [facility] Comment on above:Performed By: #### BMP #### [facility] [address] [address] [address] Javy BrianUrea nitrogen [Mass/Vol]27.0 mg/dLCritically high7.0-18.0The [facility] EastComment on above:Performed By: #### BMP #### [facility] [address] [address] [address] Javy BrianUrea nitrogen/Creatinine [Mass ratio]16.8 mg/mgNormalThe [facility] EastComment on above:Performed By: #### BMP #### [facility] [address] [address] [address] Javy BrianAmbulatory Visit Summaryon 08-19-0665Hqdiaadwsp Visit Summary KEVIN GUEVARA :1945 Visit Date:10/04/2021 Ambulatory Visit Instructions Your Diagnosis BPH with urinary obstruction Personal history of kidney stones Tests Performed Urnls Dip Stick Auto w/o Microscopy POC 46137 Your Care Team Attending Physician - Randall Heard Jr., MD Primary Care Physician - REN MARCIAL JR, DO This Is Your Medications List Contact prescribing physician if questions or concerns acetaminophen-hydrocodone (Camargo 325 mg-5 mg oral tablet) allopurinol (allopurinol [...] MD, Randall Espino Where: [facility] Educationon 24-74-6412Wcwtxyx EducationUrology Benign Prostatic Hyperplasia Benign prostatic hyperplasia (BPH) is an enlarged prostate gland that is caused by the normal agingprocess and not by cancer. The prostate is [...] urine that may remain in your bladder afteryou finish urinating. ? A digital rectal exam. [...] this procedure, a tool is inserted through theopening at the tip of the penis (urethra). [...] procedure uses radio frequencies to destroy and removea small amount of prostate tissue. ? Interstitial laser coagulation (ILC). This procedure uses a laser to destroy and remove a small amount of prostate tissue. ? Transurethral electrovaporization (TUVP). This procedure uses electrodes to destroy and remove a small amount of prostate tissue. ? Prostatic urethral lift. This procedure inserts an implant to push the lobes of the prostate awayfrom the urethra. Follow these instructions at home: ? Take vndu-hjo-fnxjrua and prescription medicines only as told by [...] treatment. ? You d (more content not included)...[facility] HospitalUrology Office/Clinic Noteon 21-16-7339Hlpbxwt Office/Clinic NoteChief Complaint Follow up to PSA and KUB This patient is a 76-year-old male with a history of renal calculi and prostatic hyperplasia. He ishere today for follow-up visit. He has a recent PSA for review. [facility] Staff Kevin is a 2 month follow [...] denies hematuria, denies discharge, denies urinary frequency, deniesurinary hesitancy, denies nocturia, denies incontinence, denies genital [...] he's voiding well, gets up 2x per night.Current PSA done 09/30/21 was 0.56 previous recent PSA done 01-13-19 0.80, mild intermittent nocturia 3 times a night, mild frequency Pt states he goes about 6 times a day. All questions and concerns were discussed. Pt acknowledge and understand. Pt will call our office with any changes in urinary symptoms Ordered: PSA Total Urnls Dip Stick Auto w/o Microscopy POC 09461 2. Personal history of kidney stones (Z87.442: [...] 25 mg Tab, 12.5 (more content not included)...[facility] HospitalComment on above:Result Comment: Electronically Signed By: Randall Heard Jr., MD\.br\Date and Time Signed: 10/04/2210:52 EST\.br\Electronically Co-Signed By: Shakira Emery MA\.br\Date and Time Co-Signed: 10/04/21 11:49 ESTLab Reportson [id number] Reports [id number]:127NoProMedica Defiance Regional HospitalFluoro For Surgical ProceduresOrdered By: Jens Mayers on 50-62-4086Yvbwqoylso: Fluoroscopic time 383.0 seconds. Spinal stimulating leads with leads at indeterminate spinal level. If there is clinical concern for desired level location, radiographs lumbar/thoracic spine recommended.[employer] Phone: patient : 1945 Age: 74 years Gender: Male Order Date: 08/07/2019 2:09 PM. Exam: FLUORO FOR SURGICAL PROCEDURES Number of Views: 2 Indication: Pain Comparison: None Findings: Spinalstimulating leads are noted with leads at indeterminate spinal level. Postoperative changes lower lumbar spine.[employer] Phone: ediCortney Incoming Radiant Results From [employer] - 08/08/2019 8:50 AM EST Patient : [...] for desired level location, radiographs lumbar/thoracic spine recommended.[employer] Phone: FLUORO FOR SURGICAL PROCEDURESon 29-83-8063MFVHVU FOR SURGICAL PROCEDURESPatient : 1945 Age: 74 years Gender: Male [...] Signed by: Simon Somers MD 08/08/19 Final resultNoRangely District HospitalAPTTOrdered By: Tone Redd on 22-13-4231ySLN Coag (d) [Time]33.3 Kaeuferportal Phone: comment on above:Effective 02/13/2019: Please note methodology and/or reference ranges have changed. aPTT - Heparin Therapeutic Range: 74.0 - 106 seconds BASIC METABOLIC PANELOrdered By: Tone Redd on 80-09-3381Twtxg gap [Moles/Vol]13 mmol/LMCartour Phone: calcium [Mass/Vol]9.6 mg/dL8.5 - 9.9 mg/dLInternal Gaming Phone: chloride [Moles/Vol]107 mmol/LMCartour Phone: cO2 [Moles/Vol]22 mmol/LMCartour Phone: creatinine [Mass/Vol]1.02 mg/dL0.7 - 1.2 mg/dLInternal Gaming Phone: GFR >60.0>60[employer] Phone: comment on above:>60 mL/min/1.73m2 EGFR, calc. for ages 18 and older using the MDRD formula (not corrected for weight), is valid for stable renal function. GFR Non->60.0>60[facility]pelier HospitalFiscalNote Phone: comment on above:>60 mL/min/1.73m2 EGFR, calc. for ages 18 and older using the MDRD formula (not corrected for weight), is valid for stable renal function. Glucose [Mass/Vol]98 mg/dL70 - 99 mg/dLParkwood Hospital Predictry Work Phone: potassium [Moles/Vol]4.5 mmol/LMercy [employer] Work Phone: sodium [Moles/Vol]142 mmol/LMst. mary's medical center, [facility] campusy [employer] Work Phone: Urea nitrogen [Mass/Vol]21 mg/dL8 - 23 mg/dLParkwood Hospital [employer] Phone: basic Metabolic Panelon 84-09-6150Ojpnj gap [Moles/Vol]13 mmol/LNormal9-15[facility] CenterComment on above: Performed By: #### BMP #### [facility] [address] [place] [address] Xstchau [Mass/Vol]9.6 mg/dLNormal8.5-9.9[facility] CenterComment on above:Performed By: #### BMP #### [facility] [address] [place] [address] Tuszwgty [Moles/Vol]107 mmol/NRbcqri65-692QcdxaDenver Health Medical CenterComment on above:Performed By: #### BMP #### [facility] [address] [place] [address] AM5 [Moles/Vol]22 mmol/XRoiaus18-70AngrmDenver Health Medical Center Comment on above:Performed By: #### BMP #### [facility] [address] [place] [address] Qbiblmhewe [Mass/Vol]1.02 mg/dLNormal0.70-1.20[facility] Medical CenterComment on above:Performed By: #### BMP #### [facility] [address] [place] [address] YFG/1.73 sq M predicted among blacks MDRD (S/P/Bld) [Vol rate/Area] mL/min/{1.73_m2}Normal>60[facility] Medical CenterComment on above:Result Comment: >60 mL/min/1.73m2 EGFR, calc. for ages 18 and older using the MDRD formula (not corrected for weight), is valid for stable renal function.Performed By: #### BMP #### [facility] [address] [place] [address] HZR/1.73 sq M.predicted MDRD (S/P/Bld) [Vol rate/Area] mL/min/{1.73_m2}Normal>60[facility] CenterComment on above:Result Comment: >60 mL/min/1.73m2 EGFR, calc. for ages 18 and older using the MDRD formula (not corrected for weight), is valid for stable renal function.Performed By: #### BMP #### [facility] [address] [place] [address] Plowkmf [Mass/Vol]98 mg/qQWcyxld44-28JvqetLongs Peak Hospital Comment on above:Performed By: #### BMP #### [facility] [address] [place] [address] Mcefdmwus [Moles/Vol]4.5 mmol/LNormal3.4-4.9[facility] Medical CenterComment on above:Performed By: #### BMP #### [facility] [address] [place] [address] Ehiwub [Moles/Vol]142 mmol/QKyedsj013-806ZkkobDenver Health Medical CenterComment on above:Performed By: #### BMP #### [facility] [address] [place] [address] Liqn nitrogen [Mass/Vol]21 mg/dLNormal8-23[facility] Medical CenterComment on above:Performed By: #### BMP #### [facility] [address] [place] [address] TZAQbqqkyj By: Tone Redd on 93-17-6412Ndhjbwxybfj distribution width (RBC) [Ratio]14.0 %11.5 - 14.5 %[employer] Phone: Hematocrit (Bld) [Volume fraction]42.1 %42 - 52 %[employer] Phone: Hemoglobin (Bld) [Mass/Vol]14.1 g/dL14 - 18 g/dLParkview Health Montpelier HospitalFiscalNote Phone: MCH (RBC) [Entitic mass]29.9 pg27 - 31.3 pgParkview Health Montpelier HospitalFiscalNote Phone: MCHC33.6 %33 - 37 %[employer] Phone: MCV (RBC) [Entitic vol]89.0 fL80 - 100 fLParkview Health Montpelier HospitalFiscalNote Phone: Platelets (Bld) [#/Vol]140 10*3/uL130 - 400 K/OnfanParkview Health Montpelier HospitalFiscalNote Phone: RBC (Bld) [#/Vol]4.73 10*6/OnfanParkview Health Montpelier HospitalFiscalNote Phone: WBC (Bld) [#/Vol]5.7 10*3/uL4.8 - 10.8 Playerize/OnfanParkview Health Montpelier HospitalFiscalNote Phone: CBC With Platelet No Differentialon 07-08-2019 Erythrocyte distribution width (RBC) [Ratio]14.0 %Dgdacy34.5-14.5[facility] Medical CenterComment on above:Performed By: #### CBCND #### [facility] [address] [place] [address] Xzsybnwate (Bld) [Volume fraction]42.1 %Dsppwx38.0-52.0[facility] CenterComment on above:Performed By: #### CBCND #### [facility] [address] [place] [address] Nscpfzldfd (Bld) [Mass/Vol]14.1 g/oSCqdtda03.0-18.0[facility] CenterComment on above:Performed By: #### CBCND #### [facility] [address] [place] [address] HGA (RBC) [Entitic mass]29.9 lqYsujnk68.0-31.3MLongs Peak HospitalComment on above:Performed By: #### CBCND #### [facility] [address] [place] [address] MEUX (RBC) [Mass/Vol]33.6 %Jntnqg15.0-37.0[facility] CenterComment on above:Performed By: #### CBCND #### [facility] [address] [place] [address] EKS (RBC) [Entitic vol]89.0 tOQhyjqq26.0-100.0[facility] CenterComment on above:Performed By: #### CBCND #### [facility] [address] [place] [address] Dllcpzlcm (Bld) [#/Vol]140 10*3/jBWzrasj097-398GzxseDenver Health Medical CenterComment on above:Performed By: #### CBCND #### [facility] [address] [place] [address] YFT (Bld) [#/Vol]4.73 10*6/uLNormal4.70-6.10[facility] Medical CenterComment on above:Performed By: #### CBCND #### [facility] [address] [place] [address] QPP (Bld) [#/Vol]5.7 10*3/uLNormal4.8-10.8[facility] Medical CenterComment on above:Performed By: #### CBCND #### [facility] [address] [place] [address] PNZVLT FOR SURGICAL PROCEDURESon 80-69-6800ZLPKGK FOR SURGICAL PROCEDURESPatient : 1945 Age: 74 years Gender: Male Order Date: 07/08/2019 2:14 PM. Exam: FLUORO FOR SURGICAL PROCEDURES Number of Views: 1 Indication: Stimulator lead placement insertion Comparison: None Findings: Spinal stimulating lead at indeterminate spinal level. IMPRESSION: Impression: Spinal stimulating lead at indeterminate spinal level. Fluoroscopic guidance of 85.1 seconds. Interpreted by: Simon Somers MD Signed by: Simon Somers MD 07/09/19 Final resultNormalDenver Health Medical CenterPROTIME-INROrdered By: Tone Redd on 01-98-9445XJL Coag (PPP) [Relative time]1.1 {INR}Internal Gaming Phone: comment on above:Warfarin Therapy INR Therapeutic: 2.0-3.0 With Mechanical Valve: >2.5 Low-intensity Therapeutic Range: 1.5-2.0 Mod-intensity Therapeutic Range: 2.0-3.0 High-intensity Therapeutic Range: 2.5-3.5 HIgh-intensity Therapeutic Range: 3.0-4.0 Common Critical/Alarm Value: 5.0 Common Upper Limit Reported: 10.0 Effective 02/06/2019: Please note methodology and/or reference ranges have changed. PT Coag (PPP) [Time]14.1 Kaeuferportal Phone: comment on above:Effective 02/06/19 Please note methodology and/or reference ranges have changed. Partial Thromboplastin Timeon 44-96-9784fYFG Coag (Bld) [Time]33.3 sNormal 24.4-36.8[facility] Medical CenterComment on above:Result Comment: Effective 02/13/2019: Please note methodology and/or reference ranges have changed. aPTT - Heparin Therapeutic Range: 74.0 - 106 secondsPerformed By: #### PTT #### [facility] [address] [place] [address] [phone] Timeon 71-83-5958RBA Coag (PPP) [Relative time]1.1 {INR} NormalDenver Health Medical CenterComment on above:Result Comment: Warfarin Therapy INR Therapeutic: 2.0-3.0 With Mechanical Valve: >2.5 Low-intensity Therapeutic Range: 1.5-2.0 Mod-intensity Therapeutic Range: 2.0-3.0 High-intensity Therapeutic Range: 2.5-3.5 HIgh-intensity Therapeutic Range: 3.0-4.0 Common Critical/Alarm Value: 5.0 Common Upper Limit Reported: 10.0 Effective 02/06/2019: Please note methodology and/or reference ranges have changed.Performed By: #### PT #### [facility] [address] [place] [address] CK Coag (PPP) [Time]14.1 eTjlwte94.3-14.9[facility] Medical CenterComment on above:Result Comment: Effective 02/06/19 Please note methodology and/or reference ranges have changed.Performed By: #### PT #### [facility] [address] [place] [address] FJMGD AND LATERALon 95-69-1749SFPEU AND [facility] Medical CenterDepartment of Rscpsmmgn[address] [place] [id number] Patien t Name: KEVIN GUEVARA Sherman : 1945Sex: MAge: Race: WhiteMRN: [id number]. Location: OUTPPatient Status: DVisit #: [id number] Date: 02/06/2018 7:00:00 AMCompleted Date: 02/06/2018 09:23 AMRequesting Provider: SARINA GUZMAN Attending Provider: SAM GREER Report Copy To: Signs & Symptoms: Post Pacemaker/AICD PlacementHistory: Patient history not availableComments: Check Pacemaker/AICD Lead Position, Chest X-ray PA \EANDE\ LAT in Dept ;DO NOT lift affected arm above shoulder. S/P pacemaker/ICD implant. Verify lead placementExam: CHEST AND LATERALAccession #: [id number] CHEST AND LATERAL 02/06/2018 9:23 AM EDT SIGNS AND SYMPTOMS: Post Pacemaker/AICD Placement TECHNOLOGIST COMMENTS: check leads status postpacemaker placement yesterday shortness of breath QUESTION FOR [...] lung and costo phrenic recess are clear. Smallcalcified granulomas in the left parahilar region. IMPRESSION: Satisfactory position of left subclavian tripolar pacemaker with intact wires and no evidence of pneumothorax. Small left pleural effusion and adjacent left lower lobe atelectasis Electronically signed by:Florence Vinson. Transcribedby: [email or web address], User Resident: Electronically Signed by: FLORENCE VINSON @ 02/06/2018 02:44 CentervilleComment on above:Order Comment: Check Pacemaker/AICD Lead Position, Chest X-ray PA \EANDE\ LAT in Dept ;DO NOT lift a ffected arm above shoulder. S/P pacemaker/ICD implant. Verify lead placement Cardiovascular Lab Reporton [id number] Lab ReportUnAdena Health System Patient Name: Kevin [place] [facility] MR #: [id number] Physician: Sam Groves of St[facility] GreerMedicine Service Date: 02/05/2018Division of Birthdate: 6Cardiology Room #: 3CD [id number] CardiovascularW[facility] Parkwayer[address], [place] [address]Cpopf Fax Cardiovascular Laboratory ReportINDICATION:Mr. Kevin [place] is a 72-year-old gentleman, who I saw inthe [place] office. He sees Dr. Long. He was referred for a CRTDprocedure. He has ejection fraction of 20% to 25%, chronic low ejectionfraction as well, he has a left bundle-branch block with a QRS duration ofapproximately 170 millisec onds.I saw him in the [place] office, went over the procedure, risks andbenefits [...] vein were achieved.Through the use of scalpel, scissors,and Bovie, a dissection was takendown to the pectoralis muscle after local anesthesia with lidocaine .Pacemaker pocket was created with blunt dissection. Antibiotic soakedsponges were left in the pocket.The use of breakaway introducer sheath, atrial and ventricular leads wereplaced. They were testedincluding 10 V pacing tethered with 0 silk.At that point, a 10-Israeli docking station was placed.A long sheath with a decapolar catheter was placed and access of thecoronary sinus was achieved.Coronary sinus venography was done. However, adequate opacification of thevessels was not satisfactory, soa Agudelo balloon-tipped catheter was usedto get a satisfactory venogram. He had very poor targets. However, he had1 suitable vein that was small, and I had some concern about its ability toaccommodate the lead. However, using a guidewire, the lead was able to besuccessfully placed in the branch. Itwas tested including 10 V pacing.The leads were all tethered with 0 silk.The sponges were removed from the pocket. The pocket was irrigated withbacitracin and gentamicin. The device was attached, secured, placed in thepocket, tethered with the header suture. The pocket was re-irrigated andclosed in2 running layers of 2-0 Vicryl, running layer of 3-0 Vicryl,adhered with Dermabond and Steri-Strips. Sponge and needle counts werecorrect. There were no apparent complications. There was 32 mL ofcontrast used in 39 minutes of fluoroscopy. The device was a [id number], serial number [id number].The atrial lead is a Medtronic 5076 [id number]. The ventricular lead is a Medtronic 6935 TDL [id number]. The leftventricular lead is a Medtronic 254310, serial number [id number].Sensed P and R waves were 3.5 mV with the P waves 7 mV, the R-wave in theRV and 9.4, the LV impedance 627 ohms in the vndaex568, in the rsnaodbks725 in the coronary sinus. Pacing threshold at [...] 02/05/2018/01:25 P/Sam Greer M.D.Date Trans: 02/06/2018 06:47 A/mmYasN_JN:[id number]: Ren Marcial D.O. [address] [place], [place] [address]Mykel [facility] [address]CdhqpcQsmHolzer Health System Vital Signs Date TimeVital SignValuePerforming NmsqytncvRnzdttrz24-24-7937 16:25-0500 Diastolic blood ylbxidwe30 mm[Hg]Jens Mayers MD Work Phone: [employer] Work Phone: 1([phone] 16:25-0500Heart rate78 /minJens Mayers MD Work Phone: [employer] Work Phone: 1([phone])[phone] 16:25-0500Respiratory rate20 /minJens Mayers MD Work Phone: [employer] Work Phone: 1([phone])256-521669-729155-15032207-66-2293 16:25-3826HqJ6% (BldA) [Mass fraction]95 % Jens Mayers MD Work Phone: [facility] Work Phone: [phone] 16:25-0500Systolic blood jwwsrnra182 mm[Hg] Jens Mayers MD Work Phone: [facility] Work Phone: 1(115)[phone]5-2232 10:51-0500Body zbumzv979.2 cmJens Mayers MD Work Phone: [facility] Work Phone: 1([phone] 10:51-0500Body mass index (BMI) [Ratio] 34.78 kg/m2Jens Mayers MD Work Phone: [facility] Work Phone: 1([phone])[phone]9-7911 10:51-0500Body hnbdtvgnnyu24.59 [degF]Jens Mayers MD Work Phone: [employer] Work Phone: 1(385)[phone]0-7607 10:51-0500Body zixuvx002.94 kgJens Mayers MD Work Phone: [employer] Work Phone: 1([phone]6-1178 15:25-0500Body .01 [degF]Jens Mayers MD Work Phone: [employer] Work Phone: 1([phone] 569-737312-10-2019 15:25-0500Diastolic blood qjievozt71 mm[Hg] Jens Mayers MD Work Phone: [facility] Work Phone: 1([phone] 140-244612-10-2019 15:25-0500Heart rate78 /minJens Mayers MD Work Phone: [facility] [employer] Work Phone: 1([phone] 15:25-0500Respiratory rate16 /minJens Mayers MD Work Phone: [facility] [employer] Work Phone: 1([phone]) 412-601312-10-2019 15:25-5773KkX2% (BldA) [Mass fraction]97 % Jens Mayers MD Work Phone: [employer] Work Phone: 1([phone] 15:25-0500Systolic blood pmckorda558 mm[Hg] Jens Mayers MD Work Phone: [employer] Work Phone: 1([phone] 636-808312-10-2019 11:45-0500Body .9 cmJens Mayers MD Work Phone: [employer] Work Phone: 1([phone] 11:45-0500Body mass index (BMI) [Ratio] 35.26 kg/m2Jens Mayers MD Work Phone: [facility] [employer] Work Phone: 1([phone] 329-304612-10-2019 11:45-0500Body yvlbln446.94 kgJens Mayers MD Work Phone: [facility] Work Phone: Encounters Encounter DateEncounter TypeCare ProviderFacilityStart: 68-90-9209iqhtchujprAOKCHolzer Medical Center – Jacksontart: 05-05-2025 End: 24-37-6011wavzfzgjolGVPN [facility]: 68-21-5828virjjpcaxqBRIL [facility]: 04-06-2025 End: 14-39-4120nlkyrsbsayAsxbldx Vytautas Giedraitis MDFacility:[facility] Start: 12-40-3336hwjhtxroluAIBV [facility]tart: 03-16-2025 End: 95-64-7059ztpsutdciaEnpnpjb Vytautas Giedraitis MDFacility:PM Yael Start: 16-73-6131knjuhdluyuBOLBF GRUBBUniSelect Medical Specialty Hospital - Columbustart: 03-02-2025 End: 81-05-1139skdvrgqrnlHyqlxrn Vytautas Giedraitis MDFacility:[facility] Start: 02-17-2025 End: 17-61-8465wuqagzstvuOSYPCommunity Regional Medical Centertart: 01-26-2025 End: 05-91-0227stoqyeduuzWovhhho Vytautas Giedraitis MDFacility:[facility] Start: 01-01-2025 End: 31-58-6452ntlpzrahheWTETTAK [facility] Hospitaltart: 12-25-2024 End: 13-63-7806iylgapzjxeUIDSCommunity Regional Medical Centertart: 12-09-2024 End: 46-54-8681wngmvwcgcoSWQGCommunity Regional Medical Centertart: 12-01-2024 End: 17-14-2876Kjt-admission assessmentMRS. M[facility]AL[facility] COREY [facility] Start: 61-22-9803dpgpzxoeikZNJCCommunity Regional Medical Centertart: 83-16-0645iazqizoudvKLPN [facility]tart: 91-57-6739bcyjinrcvcSZRLHolzer Medical Center – Jacksontart: 80-23-2303tgwyersbehZHNQUniversity Hospitals [facility] Start: 02-18-2212reohxzgpfvKKUCPaulding County Hospitaltart: 00-10-4110arzjrrbrucYUGLPaulding County Hospitaltart: 43-73-7050jmeblxpnwgFHVPPaulding County Hospitaltart: 07-08-2024 End: 42-86-3115irfbswsngvAXKGPaulding County Hospitaltart: 57-24-1163zpcegbfvkoIMOVPaulding County Hospitaltart: 05-70-1354Sayattcoi for preprocedural cardiovascular examinationMagruder Hospitaltart: 09-86-5791klovtqlgvkNCXVSheltering Arms Hospitaltart: 13-76-8263dhbkjacwrhCXIHSheltering Arms Hospitaltart: 48-23-5346ysfgfvlkujKrdfdkc R WATERS Facility:EU BellevueStart: 07-25-2022 End: 16-89-6693vlvlnrhzcqGTUQN BARAZIFacility:F4Hpnti: 07-13-2022 End: 15-77-2340gxzlltiyrdAV CASSANDRA MOUKARBELFacility:N4Dbprj: 11-11-2021 ambulatoryDR CASSANDRA MOUKARBELFacility:O2Aenfj: 11-08-2021 End: 35-43-0842exmjrmfslfZP CASSANDRA MOUKARBELFacility:A6Bbzkd: 11-04-2021 End: 80-78-7171fhfteaahlrZL CASSANDRA CHRISTALUKARBELFacility:Z1Mqofz: 10-04-2021 ambulatoryPaopal BAEFacility:FM MilanStart: 10-04-2021 End: 07-88-3117nocpiihfmiYbvgcxb R WATERSFacility:EU BellevueStart: 09-30-2021 End: 86-19-2204gioxpckptuIN RANDALL HEARD JRFacility:D0Ywvuc: 08-07-2019 End: 96-69-5515Bbfgkka encounter procedureJENS FONGGrand River Health Start: 08-07-2019 End: 84-74-4863Kgotmotgrl hospital visit by Rahul Mayers MD Work Phone: mlOZ ORComment on above:Post-op pain (Primary Dx) Start: 08-07-2019 End: 64-13-0332Rvtonkm encounter procedureSpanish Peaks Regional [facility] Start: 08-07-2019 End: 47-41-7105Xypglbckou hospital visit by Rahul Mayers MD Work Phone: [facility] RadiologyComment on above:Pain Start: 07-08-2019 End: 51-50-7121Vaxaskq encounter procedureSpanish Peaks Regional Health Center Start: 07-08-2019 End: 72-15-7639Hbscbbwzpz hospital visit by Rahul Mayers MD Work Phone: mloz ORStart: 07-08-2019 End: 63-26-3960Qkgjdjx encounter procedureSpanish Peaks Regional Health Center Start: 02-05-2018 End: 71-12-7468Rjafgmw encounterDANILINDSEY GREERFacility:[facility]ENTERtart: 01-11-2018 End: 73-07-0521Msfzevp encounterPROVIDER UNKNOWNFacility:[facility]ENTERtart: 01-10-2018 End: 85-69-1555Zjcofay encounterDEFAULT PHYSICIANFacility:[facility] Procedures DateProcedureProcedure DetailPerforming ClinicianStart: 81-38-0754IVJ screening DR CASSANDRA LONGComment on above:Performed By: #### PSAD #### [facility] [address] [place] [address] Dr. Palafox ChangStart: 58-30-5835JCJVHIAAX SPIROMETRY RTBO YOOStart: 08-07-2019 DISCHARGE PATIENTBO YOOStart: 17-07-0451WKZWGJ FOR SURGICAL PROCEDURESBO YANCY Start: 89-27-6121RFSPPXJLP SPIROMETRY RTBO YOOStart: 25-22-1792AFARZI FOR SURGICAL PROCEDURESJens Mayers MD Work Phone: Start: 60-83-2310NKZYTJUQP SPIROMETRY RTBO YOOStart: 59-32-7875Euqxgruznu pulse oximetryBO YOOStart: 95-39-6359EGNELSIC YOOStart: 96-72-5878RJOQEAOUF YOOStart: 16-97-6190LFLJKXROS DEEP BREATHING AND COUGHINGBO YOOStart: 26-08-3736XVYMDNVJU SPIROMETRY RTBO YOOStart: 50-82-2968SQBFX/VASCULAR CHECKSBO YOOStart: 79-85-1028BAGWSCF COMMUNICATIONBO YOOStart: 08-07-2019 INITIATE OXYGEN THERAPY PROTOCOLBO YOOStart: 36-36-8366OMKKVO PHYSICIAN (SPECIFY)JENS YOOStart: 44-99-0127XQAHG OXIMETRY SPOT CHECKBO YOOStart: 08-07-2019 VITAL SIGNSBO YOOStart: 87-15-6011OMFZVHCJL PATIENTBO YOOStart: 39-57-8848ZZUTPM FOR SURGICAL PROCEDURESBO YOOStart: 28-44-3733NCFLOPXTR SPIROMETRY RTBO YANCY Start: 58-08-4530Kvefs count complete automatedBO YOOStart: 93-00-7952Xpltw metabolic panel calcium totalBO YOOStart: 12-54-1178Rvenicsublb timeBO YOOStart: 41-81-1312Kigvmrvjbuddju time partial plasma/whole bloodBO YOOStart: 07-08-2019 Continuous pulse oximetryBO YOOStart: 29-15-0034ZOUEHIZJ YOOStart: 07-08-2019 BEDRESTBO YOOStart: 20-89-9208KMYXAREZT DEEP BREATHING AND COUGHINGBO YOOStart: 52-77-9394VMBKRQWRM SPIROMETRY RTBO YOOStart: 60-69-0211GSCPX/VASCULAR CHECKSBO YOOStart: 11-54-6297EEFOYNI COMMUNICATIONBO YOOStart: 18-83-8591Gwy routine ecg w/least 12 lds w/i&rBO YOOStart: 16-07-1478NYLWGPKE OXYGEN THERAPY PROTOCOLBO YOOStart: 47-88-0782TPCANK PHYSICIAN (SPECIFY)JENS YOOStart: 80-06-2498VXCCW OXIMETRY SPOT CHECKBO YOOStart: 30-62-5511CZZIE SIGNSBO YOOStart: 07-08-2019 End: 63-21-1574Hlhxs metabolic panel calcium totalMichael Bennett Redd MD Work Phone: Start: 33-78-9990Njqrjtwcuvy of scrotumMRS. MORALES COREY comment on above:W/EXCISION OF SPERMATIC CORD MASS Start: 46-45-4983Pzfpbzmcwob removal of ureteric stentMRS. MORALES LEORA Start: 23-88-5052JiznajhdlzLTU. MORALES LEORA Start: 18-17-0795Bvzyyjbxsdrtth shockwave lithotripsy of calculus of kidneyMRS. MORALES LEORA Start: 80-33-9821Ocdclwdjllqzsw shockwave lithotripsy of calculus of kidneyMRS. MORALES LEORA Start: 78-88-4387Rqhq Thumb cyst excisionMRS. MORALES LEORA Start: 20-87-7568SnqnyrtlbjSII. MORALES LEORA Start: 36-07-2785Gazqqkepwlvdrm shockwave lithotripsy of calculus of kidneyMRS. MORALES LEORA Start: 12-22-9471Uprtuixvbdaxeg shockwave lithotripsy of calculus of kidneyMRS. MORALES LEORA Start: 56-54-8666Ckxiddqgvskvgb shockwave lithotripsy of calculus of kidneyMRS. MORALES COREY H/O Spinal surgeryMRS. MORALES COREY Herniated structure (morphologic abnormality) MORALESSherman LAZARTZ Plan of Treatment DateCare ActivityDetailAuthorStart: 08-22-2019 End: 10-73-5596Wsgcsgz encounter dttdgxqoq73/24/2020 Office Visit Neurosurgery Jens Mayers MD [address], [address] [place], [place] [address] [employer]Start: 07-11-2019 End: 26-54-8438Qjifqwz encounter ariiylidr40/13/2019 Office Visit Neurosurgery Jens Mayers MD [address], [address] [place] [address] [employer]Start: 62-45-9172Nuwahykri vaccinationFlu vaccine (#1)[employer] Phone: start: 72-40-4745Gmmsyx Wellness Visit (AWV)Annual Wellness Visit (AWV)[employer] Phone: start: 50-97-8063Ucqvgxgbeuqf 65+ years Vaccine (1 of 1 - PPSV23)Pneumococcal 65+ years Vaccine (1 of 1 - PPSV23)[employer] Phone: start: 88-39-9359Ldiqh cancer screen colonoscopyColon cancer screen colonoscopyInternal Gaming Phone: start: 71-07-6509Exlqhlft Vaccine (1 of 2)Shingles Vaccine (1 of 2)[employer] Phone: start: 31-47-3102Emroa screenLipid screenParkview Health Montpelier HospitalFiscalNote Phone: start: 12-24-7439TLgX/Tdap/Td vaccine (1 - Tdap) DTaP/Tdap/Td vaccine (1 - Tdap)[employer] Phone: start: 89-64-1937Yzssuzeot C screenHepatitis C screen [employer] Phone: eKG 12 LeadEKG 12 Lead ECG Routine 07/08/2019 12:00 PM ESTInternal Gaming Phone: Incentive spirometryInternal Gaming Phone: comment on above:Every 2hr while awake until discontinued starting 07/08/2019Every 2hr while awake until discontinued starting 08/07/2019Initiate Oxygen Therapy ProtocolInternal Gaming Phone: comment on above:Daily until discontinued starting 07/08/2019Daily until discontinued starting 08/07/2019Phase I & II - metered glucoseMerEscom Work Phone: comment on above:As Needed until discontinued starting 07/08/2019As Needed until discontinued starting 08/07/2019 End: 41-67-0882Ewpqn Oximetry Spot CheckPulse Oximetry Spot Check Respiratory Care Routine One Time for 1 Occurrences starting 07/08/2019 until 07/08/2019 [employer] Phone: comment on above:One Time for 1 Occurrences starting 07/08/2019 until 07/08/2019 End: 35-21-3697Znuee Oximetry Spot CheckPulse Oximetry Spot Check Respiratory Care Routine One Time for 1 Occurrences starting 08/07/2019 until 08/07/2019 [employer] Phone: comytll on above:One Time for 1 Occurrences starting 08/07/2019 until 08/07/2019 Payers DatePayer CategoryPayerPolicy [id number] MEDICARE PART A AND B xxxxxxxxxxx 2017-Present [phone] [address] [address] [place], [place] [id number] UnknownMEDICAL [facility] [address] xxxxxxxxxxxx 2017-Present [phone] [address] [place] [address]myfrxxvgoemg [id number] 2017Medicare [id number] 1960 Bklv-[id number] 2.840.1.245363.3.57[id number] 2.16.840.1.845277.3.57[id number] 2.16.840.1.662143.3.57[id number] 2.16.840.1.677749.3.57[id number] 2.16.840.1.037108.3.57[id number] 2.16.840.1.091270.3.57[id number] 2.840.1.136710.3.57[id number] 2.840.1.923217.3.57[id number] 2.840.1.151252.3.57[id number] 2.840.1.206856.3.57[id number] 2.16840.1.682253.3.57[id number] 2.16840.1.395862.3.57[id number] 2.16840.1.147271.3.57[id number] 2.16840.1.034989.3.57[id number] 2.16840.1.917100.3.57[id number] 2.16840.1.71[id number] Health Insurance [id number] Social History DateTypeDetailFacilityStart: 07-07-2019 End: 82-36-4633Yhghldo smoking status NHISNever smokerParkview Health Montpelier HospitalEscom Work Phone: start: 07-07-2019 End: 05-97-3770Qhtwxcj intakeCurrent non-drinker of alcohol (finding)[employer] Work Phone: sex Assigned At BirthNot on [facility] [employer] Phone: start: 97-74-6541Pxucvov smoking statusEx-smoker (finding)Regional Medical CenterComment on above:40 years agoSexual OrientationRegional Medical Center sex Assigned At [facility] Start: 41-12-5282EjpGkpn (finding)[facility] Medical Equipment Procedure CodeEquipment CodeEquipment Original TextEquipment IdentifierDatesLead Trial Compct Perc [id number]: 82-77-7064Evqudjvcff Intellis Adaptive Stim Mri - [id number]_rkdRvizn: 61-38-4883Rqpd Pain 1x8 60cm Vectris [id number]_impStart: 27-81-3537Olta Pain 1x8 60cm [id number]_ynlYuise: 08-07-2019 Clinical Notes 07-08-2019 to 05-05-2025 Note Date & EusyCvdaGcjumkgh62-97-7484 NoteUT Cardiology Note [facility] Reason for follow-up: BiV ICD 05/05/25 Patient is here today per Dai Evans request. Patient states he feels good. Patient states he has had a couple of episodes of low blood pressure. 90 something over 60, which he stated made him feel dizzy and light headed. Patient denies chest pain, SOB, CACERES. Leg swelling, racing heart/palpitations. He is currently on Toprol-XL 25 once daily Entresto 49-51 mg tablet bid. No recent ECHO Review of Systems Constitutional: Negative. HPI: Kevin Guevara is a 80 y.o. year old with past medical history [...] of Systems Musculoskeletal: Positive for back pain K - 5.2, repeat bmp in 3 days, cr 1.[address] Previous H[address] Long 11/04/2021: Kevin Guevara is seen in follow up on NICM, SHF, s/p BiV/ICD. Visit of 01/14/2018: Kevin Guevara is seen in follow up after recent admission to [facility] when he developed hypotension after GA for urologic surgery. He has history of non ischemic Cardiomyopathy and systolic heart failure with cath in 2007 at [facility] showing no significant CAD when his EF was 30%. He had a recent stress test at Dr Marcial's office which was negative. He has been maintained on coreg and Entresto maximum dosage for >4 months now. On his recent echocardiogram at [facility] there was reduced EF 30% and [...] PSH: Past Surgical History: Procedure Laterality Date (more content not included)...[facility]06-05-2025 Note [place] Cardiology - [facility] Patient in clinic today for a [...] in clinic in 2-3 months. Arelis Ridley APRN-[facility] Cardiovascular [place] (more content not included)...[facility]06-05-2025 NotePatient is here today in office for a wound check. S/P generator change on 12/25/2024 Patient denies fever or chills, small amount of pain 1/10 occasionally, Redness noted around Tegaderm. Small amount of discharge noted on bandage. Review of Systems Constitutional: Negative.[facility]05-29-2025 NoteBiV- ICD GENERATOR REPLACEMENT PROCEDURE NOTE DATE OF PROCEDURE: [...] 2 weeks. Jose Angel Rey MD Cardiac ElectrophysiologyUnSamaritan Hospital05-29-2025 Note Patient: Kevin Guevara Procedure Information Date/Time: 12/25/241499 Procedure: Generator change ICD BiV - PC APPROVED Medtronic Location: [facility] PEDIATRIC PHYSICIAN 1 EP / [facility] HV VASCULAR LAB (Cath) Providers: Jose Angel Rey MD Clinical information reviewed: Allergies Meds Physical Exam Airway Mallampati: II TM distance: >3 FB Neck ROM: full Cardiovascular Dental Pulmonary Abdominal Anesthesia Plan ASA 3 CSE Anesthetic plan and risks discussed with patient. Use of blood products discussed with patient who. Additional Equipment RequestsKettering Health [facility]05-29-2025 Note This report has been cancelled.[facility]05-13-2025 NoteUT Cardiology Note [facility] Reason for follow-up: BiV ICD HPI: [...] in follow up after recent admission to [facility] when he developed hypotension after GA for urologic surgery. He has history of non ischemic Cardiomyopathy and systolic heart failure with cath in 2007 at [facility] showing no significant CAD when his EF was 30%. He had a recent stress test at Dr Marcial's office which was negative. He has been maintained on coreg and Entresto maximum dosage for >4 months now. On his recent echocardiogram at [facility] there was reduced EF 30% and possible apical thrombus. [facility] showed EF 25% with [...] Laterality Date BACK SURGERY (more content not included)...[facility]04-25-2025 Note Copy of Medtronic OptiVol report 11/17/24 Margie Stack PA-C [facility] Cardiovascular Medicine [phone] Hospital04-25-2025 NoteProvider called pt and son today for concerns of worsening heart failure index noted on device interrogation. Pt states that he feels well, denied any water retention, leg edema, or weight gain. Denied worsening SOB or orthopnea. States he has actually lost about 20-30 pounds on purpose, and remains fairly active. Therefore, message sent to [facility] staff, Dr Long and Dr Rey with update of pt status, device at 3 month battery life and to monitor for upcoming device exchange for battery. Pt voiced understanding of red flag symptoms to call cardiology for- increased SOB, Orthopnea, weight gain, fatigue, or water retention. Jia Do [facility] Cardiology Available 7a-3pm via [employer] [phone] Health [facility]01-09-2020 History of Present illness Narrative* Alexandra Cody RN - 08/07/2019 4:19 PM EST disch inst and 2 presc given and explained to pt and son documented in this encounterParkview Health Montpelier HospitalFiscalNote Phone: 1(764) 123-367901-09-2020 Hospital Discharge instructions* Instructions* Alexandra Cody RN - 08/07/2019 Ice packs to the incision Shower on Sunday documented in this encounterParkview Health Montpelier HospitalEscom Work Phone: 1(837) 944-705712-10-2019 History of Present illness Narrative* Oralia Griffin RN - 07/08/2019 3:27 PM EST Dc instructions given to pt and son, verbalized understanding, pt up to bathroom with assist and tolerated well, pt voided, denies nausea, iv dc'd, pt getting dressed * Oralia Griffin RN - 07/08/2019 3:08 PM EST Pt eating pretzels and drinking soda, tolerating well * Oralia Griffin RN - 07/08/2019 3:03 PM EST medtronic in talking with pt and family * Oralia Griffin RN - 07/08/2019 2:[address] mayers in room talking with pt and son * Fouzia Villa RN - 07/07/2019 2:25 PM EST Per Nicolas ANTOINE in OR only magnet is needed for case for AICD. * Fouzia Villa RN - 07/07/2019 10:43 AM EST Patient has a Medtronic Pacemaker/AICD on the left side and will bring cards day of surgery.He has not had it interrogated recently. He will buy hibiclens and shower with it at home. * Fouzia Villa RN - 07/07/2019 8:25 AM EST Nicole from our pacemaker clinic is checking with rep. So they can be here tomorrow for pacemakerAICD interrigation. Dr. Moser notified of above. documented in this encounterParkview Health Montpelier HospitalEscom Work Phone: 1(188) 464-405712-10-2019 Hospital Discharge instructions* Instructions* Oralia Griffin RN - 07/08/2019 May shower and ambulate. Follow instructions of medtronic documented in this encounterParkview Health Montpelier HospitalFiscalNote Phone: evaluation + Plan note No data available for this section [facility] Evaluation note* Diagnosis Post-op pain- Primary Other acute postoperative pain documented in this encounter [employer] Phone: evaluation note* Diagnosis Pain Generalized pain documented in this encounter [employer] Phone: Hospital Discharge instructions No data available for this section [facility] Progress note No data available for this section [facility] Summary Purpose Family History No Family History Records FoundNo Family History Records FoundNo Family History Records FoundNo Family History Records Found No data available for this section No Family History Records FoundNo Family History Records Found Advance Directives No Advanced Directives Records FoundDocuments on File TypeDate RecordedPatient RepresentativeExplanationAdvance Directives and Living WillPower of Card Folder Reason for Referral StatusReasonSpecialtyDiagnoses / ProceduresReferred By ContactReferred To ContactPending ReviewRadiology Diagnoses Pain Procedures Fluoro For Surgical Procedures Jens Mayers MD [address], [address] [place] [address] Additional Source Comments (unrecognized sect ion and content) No Status Records FoundNo Status Records FoundNo Status Records FoundNo Status Records FoundNo Status Records FoundNo Status Records Found INFORMATION SOURCE (unrecogn ized section and content) DATE CREATED AUTHOR 02/12/2018 [facility] DATE CREATED AUTHOR AUTHOR'S ORGANIZ ATION 08/09/2019 [facility] DATE CREATED AUTHOR AUTHOR'S ORGANIZ ATION 07/28/[address] [facility] DATE CREATED AUTHOR AUTHOR'S ORGANIZ ATION 09/22/2022 [facility] DATE CREATED AUTHOR AUTHOR'S ORGANIZ ATION 04/12/2025 [facility] DATE CREATED AUTHOR AUTHOR'S ORGANIZ ATION 06/02/2025 [facility] Reason for Visit (unrecogniz ed section and content) StatusReasonSpecialtyDiagnoses / ProceduresReferred By ContactReferred To Contact Diagnoses RADICULOPATHY, STENOSIS, SPONDYLOSIS Procedures RI NJX DX/THER SBST INTRLMNR CRV/THRC W/IMG GDN D.C.S. (DORSAL COLUMN STIMULATOR) TRIAL 1 HOUR/ 1 C-ARM/ ZOE CASON [employer] (PAT SAME DAY OF SURGERY) Jens Mayers MD [address], [address] [place] [address] [facility] StatusReasonSpecialtyDiagnoses / ProceduresReferred By ContactReferred To Contact Diagnoses Cervical spondylosis with myelopathy and radiculopathy RADICULOPATHY SPONDYLOSIS Procedures RI IMPLANT NEUROSTIM/MEDICAL ECONOMICS CONSULTANT PERMANENT DCS (DORSAL COLUMN STIMULATOR)PLACEMENT, 1 HOUR/ 1 C-ARM/ [employer] ZOE CASON, *NEEDMAGNET FOR PACEMAKER, PAT COMPLETED 07/08/19 Jens Mayers MD [address], [address] [place] [address] [facility] Patient Care team informatio n (unrecognized section and content) Personnel Name: REN MARCIAL JR, DO Address: [address] [place] [id number] [employer]: FOR RECORDS PERTAINING TO PATIENTS WHO [...] BE BASED ON THE PRIMARY CLINICAL RECORDS. [facility] [employer] [facility]. provides no warranty or guarantee of the accuracy or completeness of information in this document.
--- OUTSIDE RECORDS SUMMARY | 2025-06-17 08:03 | XMS_ITS | Clinical Summary ---
Author Organization [facility] Address [address] [place] [address] Care Team Providers Care Forming Department Supervisor Name Role Phone Marcela Carter DO, Charles Lewis Primary Care Provi minoo Allergies Active AllergyReactionsCriticalityNoted DateCommentsTamsulosin HclUnknown 02/03/2015 Medications MedicationSigDispense QuantityRefillsLast FilledStart DateEnd DateStatus PREGABALIN (LYRICA ORAL) Take 200 mg by mouth three times daily.Active EZETIMIBE (ZETIA ORAL) Take 10 mg by mouth once daily.Active DULOXETINE HCL (CYMBALTA ORAL) Take 60 mg by mouth once daily.Active OLMESARTAN MEDOXOMIL (BENICAR ORAL) Take 20 mg by mouth daily at bedtime.Active ALLOPURINOL ORAL Take 300 mg by mouth once daily.Active MONTELUKAST SODIUM (MONTELUKAST ORAL) Take 10 mg by mouth once daily.Active metoprolol succinate ER (TOPROL XL) 100 mg Tb24 Take 0.5 tablets by mouth once daily. 90 tablet ctive aspirin, enteric coated (ASPIR-LOW) 81 mg EC tablet Take 1 tablet by mouth once daily.ctive Active Problems ProblemNoted DateDiagnosed UvhoYyjylsptkwkmnr05/09/1548Nzzyalifopci25/09/2015 Preoperative cardiovascular bnhypogsyul50/09/2015LBBB (left bundle branch block) 02/04/2015 Family History Medical HistoryRelationCommentsStrokeFatherStrokeMotherRelationStatusComments FatherDeceasedMotherDeceased Social History Tobacco UseTypesPacks/DayYears UsedDateSmoking Tobacco: FormerCigarettes 07/30/1964 - 07/30/1974Smokeless Tobacco: NeverAlcohol UseStandard Drinks/Week CommentsYes0 (1 standard drink = 0.6 oz pure alcohol)seldomSex and Gender InformationValueDate RecordedSex Assigned at BirthNot on fileLegal SexMale 06/30/2012 10:00 AM ESTGender IdentityNot on fileSexual OrientationNot on file OccupationIndustryJob Start DateJob End DateNot on fileNot on fileNot on fileNot on file Last Filed Vital Signs Vital SignReadingTime TakenCommentsBlood Mgwkpdfg727/8402/04/2015 9:23 AM EDT Lryol381402/04/2015 9:23 AM YTXEcncuerfxxv39.4 ??C (97.5 ??F)02/04/2015 9:23 AM EDTRespiratory Aute438202/04/2015 9:23 AM EDTOxygen Cfolujwrxd11%02/04/2015 9:23 AM EDTInhaled Oxygen Concentration--Nkqbwm033.5 kg (256 lb 12.8 oz)02/04/2015 9:23 AM ESAIuhqif277.4 cm (6' 1 )02/04/2015 9:23 AM EDTBody Mass Index33.88 02/04/2015 9:23 AM EDT Plan of Treatment Health MaintenanceDue DateLast DoneCommentsAnxiety Pedwukwuf29/01/1964Depression Khwaasrfq94/01/1964DTaP,Tdap,Td Vaccine (1 - Tdap)1965Diabetes Screening 1991Pneumococcal Vaccine: 50+ (1 of 1 - PCV)02/28/1996Shingrix Vaccine (1 of 2)02/28/1996RSV Vaccine (1 - 1-dose 75+ series)2021dvance Directive Lvzqpctpfa54/01/2025ovid-19 Vaccine (1 - 2024-26 season)2025Influenza Vaccine (#1)2025 Care Teams Team MemberRelationshipSpecialtyStart DateEnd Date Ren Medrano Jr., DO [facility] [place] [id number] PCP - [facility]04/03/03
--- OUTSIDE RECORDS SUMMARY | 2025-06-17 08:03 | XMS_ITS | Clinical Summary ---
Author Organization [facility] Address [address] [place] [address] Care Team Providers Care Smooth Stucco Resurfacer Name Role Phone Unavailable Primary Care Provider Unavailabl e Social History Tobacco UseTypesPacks/DayYears UsedDateSmoking Tobacco: Never AssessedSex and Gender InformationValueDate RecordedSex Assigned at BirthNot on fileLegal Sex Male10/11/2022 7:32 PM EDTGender IdentityNot on fileSexual OrientationNot on file Plan of Treatment Not on file
--- NOTE | 2025-06-17 08:34 | PM.CN ---
Consult Note: HPI Data of Consult Patient: known to practice within the last 3 years Requesting Physician: Gissel Sequeira NP Primary Care Provider: GIAN MARCIAL DO Consult Narrative Reason for consult: low back pain Narrative: pleasant 80 year old male presents for evaluation of chronic thoracic and lumbar pain, hx of l4,5,S1 fusion and medtronic SCS implant as of 2019, who has failed to benefit from > 6 weeks of PT, provider guided HEP, heat, ice, tylenol, NSAIDs. currently utilizing duloxetine, lyrica, tylenol, flexeril with moderate relief. radicular pain well controlled with scs per pt. denies falls or injury over the last 6 months. of note pt has a medtronic pacemaker as well. recently underwent thoracic xray and lumbar CT which shows significant multilevel spondylosis, DDD, and stenosis. pain today 2/10 increasing to 4/10 with standing, walking, stairs, activity, and ADLs. recently underwent bilateral L1/2 L2/3 facet medial branch RFA with >50% improvement ongoing. patient pleased with response. cc:: CC: Gissel Sequeira NP [facility] Medical History (Updated 03/05/25 @ 10:30 by Gissel Sequeira NP) Pacemaker ?Z95.0 - Presence of cardiac pacemaker (ICD-10) Social History Smoking status: Never smoker Little interest or pleasure in doing things: not at all Feeling down, depressed, or hopeless: not at all Meds Home Medications and Allergies Home Medications ?Medication ?Instructions ?Recorded ?Confirmed ?Type allopurinol 300 mg tablet 300 mg PO DAILY 11/06/24 04/06/25 History dapagliflozin propanediol 10 mg 10 mg PO DAILY 11/06/24 04/06/25 History tablet (Farxiga) duloxetine 60 mg capsule,delayed 60 mg PO DAILY 11/06/24 04/06/25 History release (Cymbalta) famotidine 40 mg tablet 40 mg PO DAILY 11/06/24 04/06/25 History finasteride 5 mg tablet 5 mg PO DAILY 11/06/24 04/06/25 History furosemide 20 mg tablet 20 mg PO DAILY PRN edema 11/06/24 04/06/25 History hydroxychloroquine 200 mg tablet 200 mg PO DAILY 11/06/24 04/06/25 History lubiprostone 8 mcg capsule 8 mcg PO BID 11/06/24 04/06/25 History montelukast 10 mg tablet 10 mg PO DAILY 11/06/24 04/06/25 History pregabalin 200 mg capsule 200 mg PO Q12H 11/06/24 04/06/25 History rosuvastatin 10 mg tablet 10 mg PO DAILY 11/06/24 04/06/25 History sacubitril 49 mg-valsartan 51 mg 1 tab PO BID 11/06/24 04/06/25 History tablet (Entresto) cyclobenzaprine 10 mg tablet See Rx Instructions .Route 03/05/25 04/06/25 Rx .COMPLEX #60 tabs semaglutide (weight loss) 1 mg/0.5 0.25 mg subcut QWEEK 03/19/25 04/06/25 History mL subcutaneous pen injector (Wechilangovy) cyclobenzaprine 10 mg tablet 10 mg PO BID PRN muscle spasm #60 05/07/25 Rx tabs Allergies Allergy/AdvReac Type Severity Reaction Status Date / Time No Known Drug Allergies Allergy Verified 04/06/25 12:29 Exam Constitutional Documenting provider has reviewed patient's vital signs: yes Common normals: no apparent distress, oriented x3 and alert General appearance: cooperative HENMT Common normals: normocephalic, hearing grossly normal bilaterally and moist oral mucous membranes Head and scalp: normocephalic Eye Common normals: PERRL Pupil: PERRL Neck & C-Spine Common normals: full ROM General: normal visual inspection Chest Common normals: inspection of chest normal Respiratory Common normals: normal respiratory effort, no retractions and no use of accessory muscles Back & Pelvis Lumbar spine/lower back: ROM limited, pain with ROM and straight leg raise negative bilaterally; no lumbar spinal tenderness Sacroiliac joints: SI joints normal Other: intermittent right L3,4,5 radiculopathy with standing, walking, activity strength 5/5 in BLE sensation intact BLE on exam Neuro Common normals: oriented x3 Sensorium/orientation: alert Psych Common normals: mental status grossly normal, thought process normal, cooperative, affect normal, speech normal and activity/motor behavior normal Speech: normal speech Thought process: normal thought process Results Additional Findings Additional findings: If on a controlled substance or opioids, I have checked an [place] report on this patient and there are no aberrancies noted in the prescribing history.??If on a controlled substance or opioid a drug screen was completed and reviewed within the last year, and if there has not been a drug screen completed we ordered one today to monitor higher risk, state monitored pain medication use. As part of providing excellent, safe, comprehensive care, the following was completed at our patient's visit: 1. A medication reconciliation and review to ensure accurate knowledge of current/active medications, including asking our patients to inform us about any mtiy-qbt-llwhcda medications or herbal remedies/nutritional supplements/alternative remedies. 2. A review to specifically ensure our patients have had annual screening for screening for depression, screening for tobacco use, and screening for unhealthy alcohol use. For concerning screenings had a discussion with the patient, provided patient education, and recommended follow-up with primary care provider when appropriate. If patient noted with a risk of falling, they received education on strength, gait, and balance training to prevent future risk of falling. Portions of this note may have been carried over from the previous visit and updated as appropriate. Please note this office utilizes paper charting in addition to the electronic medical record. A list of current medications, vitals, and PMH is available there as the clinical staff outside of myself do not have access to smartclip charting during the clinic day operations. As part of providing quality comprehensive care the current medications, vitals, and PMH were reviewed in the paper chart. Assessment and Plan Assessment and Plan (1) Lumbar spondylosis: Assessment and Plan: CHRISTIANO 30% (2) S/P insertion of spinal cord stimulator: (3) Failed back syndrome: (4) Lumbar stenosis with neurogenic claudication: (5) Myalgia, other site: Plan patient noting moderate ongoing relief with prior right L3,4,5 TFESI for lumbar stenosis with NC and bilateral L1/2 L2/3 facet RFA. at least 50% improvement in pain and functional ability ongoing continue flexeril 10mg BID PRN pain/spasms continue HEP as tolerated f/u 3 months, sooner if needed
== END 2025-06-17 07:59 | disposition home or self-care (01) ==
LOC: PM 07:58
PROVIDERS: PCP Internal Medicine; Visit Provider Nurse Practitioner
DX: M47.816 Spondylosis without myelopathy or radiculopathy, lumbar region (principal); M48.062 Spinal stenosis, lumbar region with neurogenic claudication; M79.18 Myalgia, other site; M96.1 Postlaminectomy syndrome, not elsewhere classified
CPT/HCPCS: G0463